=== PATIENT | female | born 1955 | race Caucasian/White ===

== ENCOUNTER 2017-07-18 21:19 | Inpatient (IN) | payer MEDICARE, MEDICAID ==
--- NOTE | 2017-07-18 21:40 | ED Physician Chart ---
ED Chief Complaint/HPI - Patient Information Date Seen:: 07/18/17 Time Seen:: 21:35 Chief Complaint:: fever, bloody urine History of Present Illness:: location: general quality: fever, bloody urine severity: moderate duration; one day context: pt with fever temp 102F today at [facility], RN also reports bloody urine. pt is ventilator dependent. RN who transported pt to ER reports no increase in respiratory secretions. no cough. no vomiting. no diarrhea. no rash reported. PCP contacted, suspects urinary source. advised send pt to ER. mod factors: none assoc s/s: none hx from [facility] RN and medic Allergies:: Allergies Allergy/AdvReac Type Severity Reaction Status Date / Time No Known Allergies Allergy Verified 07/18/17 21:33 Historian:: EMS, Other Review:: Nurse's Note Reviewed, EMS run form Reviewed ED Review of Systems - Review of Systems General/Constitutional: Fever, No edema Skin: No rash Neck: No stiffness Cardio Vascular: No edema Pulmonary: No cough, No wheezing GI: No vomiting, No diarrhea Belt Changer: No abnormal vaginal bleed Allergic/Immuno: No angioedema Neurological: No seizure ED Past Medical History - Past Medical History Past Medical History: HTN, DM, CAD, CHF, Other (chronic respiratory failure, anemia) Family History: None Social History: Non Smoker, No Alcohol, No Drug Use Surgical History: PEG/GTube, other (tracheostomy) Psychiatricy History: None Medication: Reviewed Family Medical History - Family Member Mother History Unknown: Yes ED Physical Exam - Physical Examination General/Constitutional: Awake, Well-developed, well-nourished, No distress (pt is with spontaneous eye opening, no verbal communication is observed (this is baseline as reported by facility RN who accompanies pt to ER)) Head: Atraumatic Eyes: Lids, conjuctiva normal, PERRL, EOMI Skin: Nl inspection, No skin lesions, Well hydrated ENMT: External ears, nose nl, Nasal exam nl, Lips, teeth, gums nl Neck: Nontender, Full ROM w/o pain, No nuchal rigidity Respiratory: Nl effort/Exclusion, Clear to Auscultation (bilateral crackles, no wheezes), No Wheeze/Rhonchi/Rales Cardio Vascular: RRR, No murmur, gallop, rubs, NL S1 S2 GI: No tenderness/rebounding/guarding, Normal BS's, No mass/bruits, No McBurney tenderness : No CVA tenderness Extremities: No tenderness or effusion, Normal digits & nails Misc: Normal back, No paraspinal tenderness ED Labs/Radiology/EKG Results - Lab Results Results: Laboratory Tests 07/18/17 07/18/17 07/18/17 21:30 22:15 22:15 WBC 40.8 H* RBC 3.58 L Hgb 9.9 L Hct 30.0 L MCV 83.9 MCH 27.8 MCHC Differential 33.1 RDW 13.9 Plt Count 282 MPV 12.2 Sodium 129 L Potassium 6.2 H* Chloride 95 L Carbon Dioxide 22.4 Anion Gap 17.8 H BUN 135 H* Creatinine 2.6 H Est GFR ( Amer) 24.0 Est GFR (Non-Af Amer) 19.8 BUN/Creatinine Ratio 51.9 Glucose 289 H Whole Bld Lactic Acid Calcium 10.6 H Total Bilirubin 0.5 AST 14 ALT 22 Alkaline Phosphatase 115 H Creatine Kinase Troponin I B-Natriuretic Peptide Total Protein 7.4 Albumin 3.2 L Globulin 4.2 Albumin/Globulin Ratio 0.8 L Urine Color RED Urine Clarity CLOUDY H Urine pH 7.5 Ur Specific [place] 1.025 Urine Protein >=300 Urine Glucose (UA) NEGATIVE Urine Ketones NEGATIVE Urine Blood LARGE H Urine Nitrate NEGATIVE Urine Bilirubin NEGATIVE Urine Urobilinogen 0.2 Ur Leukocyte Esterase SMALL H 07/18/17 07/18/17 07/18/17 22:15 22:15 22:15 WBC RBC Hgb Hct MCV MCH MCHC Differential RDW Plt Count MPV Sodium Potassium Chloride Carbon Dioxide Anion Gap BUN Creatinine Est GFR ( Amer) Est GFR (Non-Af Amer) BUN/Creatinine Ratio Glucose Whole Bld Lactic Acid Calcium Total Bilirubin AST ALT Alkaline Phosphatase Creatine Kinase 26 L Troponin I 0.27 H* B-Natriuretic Peptide 1420.0 H Total Protein Albumin Globulin Albumin/Globulin Ratio Urine Color Urine Clarity Urine pH Ur Specific [place] Urine Protein Urine Glucose (UA) Urine Ketones Urine Blood Urine Nitrate Urine Bilirubin Urine Urobilinogen Ur Leukocyte Esterase 07/18/17 22:30 WBC RBC Hgb Hct MCV MCH MCHC Differential RDW Plt Count MPV Sodium Potassium Chloride Carbon Dioxide Anion Gap BUN Creatinine Est GFR ( Amer) Est GFR (Non-Af Amer) BUN/Creatinine Ratio Glucose Whole Bld Lactic Acid 3.28 H* Calcium Total Bilirubin AST ALT Alkaline Phosphatase Creatine Kinase Troponin I B-Natriuretic Peptide Total Protein Albumin Globulin Albumin/Globulin Ratio Urine Color Urine Clarity Urine pH Ur Specific [place] Urine Protein Urine Glucose (UA) Urine Ketones Urine Blood Urine Nitrate Urine Bilirubin Urine Urobilinogen Ur Leukocyte Esterase - Radiology Results Results: CXR no acute pneumothorax no acute rib fracture borderline cardiomegaly no acute infiltrate, no patchiness tracheostomy tube in place no acute findings ER READ - EKG Interpretations Comments:: EKG NSR 96 repolarization abnormality suggests ischemia, diffuse leads minimal ST elevation, inferior leads pt appears comfortable, in no distress will obtain screening cardiac labs as pt is non-verbal abnormal EKG ED Assessment - Assessment General Assessment: pt with fever on arrival to ER axillary 100.5F pt with stable vital signs HR 99 RR 21 BP 112/52 100% sat vent settings AC 12 TV 500 Fio2 35% Peep 5 ED Septic Shock - . 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 advise ICU admission and further management. Reassessment Condition:: Improved - Diagnosis Diagnosis:: Acute Urinary infection near sepsis Severely elevated WBC - suspect lymphocytic process (no differential available) - Patient Disposition Discharge/Transfer:: Acute Care w/in this hosp Admitted to:: ICU Admitting Medical Physician:: Jero Dunbar Time:: 23:15 Condition at Disposition:: Stable, Improved
[2017-07-18] MEDS ORDERED: Albuterol/Ipratropium Neb 3 ML AERS HHN ONE ×2 (22:01→22:09)
[2017-07-18 22:35] LABS: URINE MICROSCOPIC INDICATED? YES; URINE SOURCE FOLEY PORT
[2017-07-18 22:42] LABS: HEMOGLOBIN 9.9 gm/dL (12-16); MANUAL DIFF REQUIRED? YES; MEAN CELL VOLUME 83.9 fl (81-100); MEAN CORPUSCULAR HEMOGLOBIN 27.8 pg (27.0-31.0); MEAN CORPUSCULAR HGB CONC 33.1 pg (28.0-36.0); MEAN PLATELET VOLUME 12.2 fl; PLATELET COUNT 282 Th/cmm (150-400); RED BLOOD COUNT 3.58 Mil/cmm (3.80-5.10); RED CELL DISTRIBUTION WIDTH 13.9 % (11.5-20.0)
[2017-07-18 22:45] LABS: ALB/GLOB RATIO 0.8 (1.0-1.8); ALBUMIN 3.2 gm/dL (3.7-5.3); ANION GAP 17.8 (7.0-16.0); BILIRUBIN,TOTAL 0.5 mg/dL (0.3-1.0); CALCIUM SERUM 10.6 mg/dL (8.6-10.3); CARBON DIOXIDE 22.4 mEq/L (21.0-31.0); CREATININE - SERUM 2.6 mg/dL (0.6-1.2); GFR NON AFRICAN-AMERICAN 19.8 ml/min; TOTAL PROTEIN,SERUM 7.4 gm/dL (6.0-8.3)
[2017-07-18 22:52] LABS: WHITE BLOOD COUNT 40.8 Th/cmm (4.8-10.8)
[2017-07-18 22:54] LABS: POTASSIUM SERUM 6.2 mEq/L (3.5-5.1)
[2017-07-18] MEDS ORDERED: Sodium Chloride 0.9% 1,000 ML IV ONE ×2 (22:57→22:58)
[2017-07-18] MEDS ORDERED: Sodium Chloride 0.9% 500 ML IV ONE (22:58)
[2017-07-18 23:06] LABS: URINE BILIRUBIN NEGATIVE (NEGATIVE); URINE BLOOD LARGE (NEGATIVE); URINE GLUCOSE (UA) NEGATIVE (NEGATIVE); URINE KETONE NEGATIVE (NEGATIVE); URINE LEUKOCYTE ESTERASE SMALL (NEGATIVE); URINE NITRATE NEGATIVE (NEGATIVE); URINE PH 7.5 (4.6 - 8.0); URINE PROTEIN >=300 mg/dL (NEGATIVE); URINE UROBILINOGEN 0.2 E.U./dL (0.2 - 1.0)
[2017-07-18 23:07] LABS: URINE CLARITY CLOUDY (CLEAR); URINE COLOR RED
[2017-07-18 23:16] LABS: URINE BACTERIA MANY /hpf (NONE SEEN); URINE EPITHELIAL CELLS FEW /lpf (FEW); URINE RBC 50-100 /hpf (0-5)
[2017-07-18 23:24] LABS: BAND NEUTROPHILE 12 % (0-10); HYPOCHROMIA 1+; LYMPHOCYTE 11 % (20-50); MONOCYTE 1 % (2-10); NEUTROPHILS 76 % (40-80); PLATELET ESTIMATE ADEQUATE (NORMAL); POLYCHROMASIA 1+; TOTAL CELLS COUNTED 100
[2017-07-18] MEDS ORDERED: Sodium Chloride 0.9% 1,000 ML IV SCH (23:45)
[2017-07-18] MEDS ORDERED: Albuterol/Ipratropium Neb 3 ML AERS HHN PRN (23:48)
[2017-07-18] MEDS ORDERED: Fleet Enema 135 mL RC PRN (23:48)
[2017-07-18] MEDS ORDERED: Magnesium Hydroxide (MOM) 30 mL UDC GT PRN (23:48)
[2017-07-18] MEDS ORDERED: Docusate Sodium 100 mg/10 mL UD GT PRN (23:48)
[2017-07-18] MEDS ORDERED: Levofloxacin 500mg/100mL 500 MG/100 ML BAG IV ONE ×2 (23:50)
[2017-07-18] MEDS ORDERED: INSULIN ASPART, RECOMBINANT 100 UNITS/ML SUBQ ONE (23:52)
[2017-07-18] MEDS ORDERED: Dextrose 50% 50 mL Abboject IVP STA (23:53)
[2017-07-18] MEDS ORDERED: guaiFENesin 200 MG/10 ML UDC PO PRN (23:55)
[2017-07-19 04:49] LABS: MANUAL DIFF REQUIRED? YES; MEAN CELL VOLUME 84.3 fl (81-100); MEAN PLATELET VOLUME 12.4 fl
[2017-07-19 05:01] LABS: MEAN CORPUSCULAR HEMOGLOBIN 29.6 pg (27.0-31.0); MEAN CORPUSCULAR HGB CONC 35.1 pg (28.0-36.0); PLATELET COUNT 259 Th/cmm (150-400); RED BLOOD COUNT 3.04 Mil/cmm (3.80-5.10)
[2017-07-19 05:03] LABS: WHITE BLOOD COUNT 40.1 Th/cmm (4.8-10.8)
[2017-07-19 05:21] LABS: ANION GAP 18.9 (7.0-16.0); CALCIUM SERUM 10.1 mg/dL (8.6-10.3); CARBON DIOXIDE 21.4 mEq/L (21.0-31.0); CREATININE - SERUM 2.7 mg/dL (0.6-1.2); POTASSIUM SERUM 5.3 mEq/L (3.5-5.1)
[2017-07-19 05:38] LABS: BAND NEUTROPHILE 16 % (0-10); HEMATOCRIT 25.7 % (41.0-60); LYMPHOCYTE 6 % (20-50); MONOCYTE 3 % (2-10); NEUTROPHILS 75 % (40-80); TOTAL CELLS COUNTED 100
[2017-07-19] MEDS: INSULIN ASPART, RECOMBINANT 100 UNITS/ML SUBQ SCH ×4 (06:38→20:22)
[2017-07-19] MEDS ORDERED: Ipratropium Neb 0.5 mg/2.5 mL UD HHN SCH (07:00)
[2017-07-19] MEDS ORDERED: Albuterol Nebulizer 2.5mg/3mL HHN SCH (07:00)
[2017-07-19] MEDS: Chlorhexidine Gluconate 0.12% 15mL Mouthwash MM SCH ×2 (08:00→20:14)
--- NOTE | 2017-07-19 08:08 | Diagnostic Imaging Report ---
CHEST X-RAY: AP view INDICATION: Tracheostomy tube placement COMPARISON: None FINDINGS: Tracheostomy tube is seen slightly asymmetric to the right and may be accentuated by location. Left basal atelectatic changes are seen with no focal consolidation or pleural effusions. Heart size is normal. Atherosclerosis is noted. Degenerative changes of the spine and shoulders are noted. IMPRESSION: Tracheostomy tube, slightly to the right of midline. Please correlate with clinical findings. Left basal atelectatic changes. No focal consolidation identified. Atherosclerotic vascular disease.
[2017-07-19] MEDS: Multivitamin w/ Minerals Tab GT SCH (09:08)
[2017-07-19] MEDS: Piperacillin Sodium/Tazobact 2.25 GM in Sodium Chloride 0.9% 100 ML IV SCH ×2 (09:08→17:03)
[2017-07-19] MEDS ORDERED: Probiotic Screen MC PRN (10:15)
[2017-07-19 11:34] LABS: A1C % 6.2 % (4.0-6.0)
--- NOTE | 2017-07-19 12:50 | Internal Medicine Prog Note ---
Internal Medicine Subjective - Subjective Service Date: 07/19/17 ([facility] dictated [id number]) Internal Medicine Objective - Results Result Diagrams: 07/19/17 04:15 07/19/17 04:15 Recent Labs: Laboratory Last Values WBC 40.1 Th/cmm (4.8-10.8) H* 07/19/17 04:15 RBC 3.04 Mil/cmm (3.80-5.10) L 07/19/17 04:15 Hgb 9.0 gm/dL (12-16) L 07/19/17 04:15 Hct 25.7 % (41.0-60) L D 07/19/17 04:15 MCV 84.3 fl (81-100) 07/19/17 04:15 MCH 29.6 pg (27.0-31.0) 07/19/17 04:15 MCHC Differential 35.1 pg (28.0-36.0) 07/19/17 04:15 RDW 14.0 % (11.5-20.0) 07/19/17 04:15 Plt Count 259 Th/cmm (150-400) 07/19/17 04:15 MPV 12.4 fl 07/19/17 04:15 Band Neutrophils % 16 % (0-10) H 07/19/17 04:15 Neutrophils (Manual) 75 % (40-80) 07/19/17 04:15 Lymphocytes 6 % (20-50) L 07/19/17 04:15 Monocytes 3 % (2-10) 07/19/17 04:15 Hypochromia 1+ 07/18/17 22:15 Platelet Estimate ADEQUATE (NORMAL) 07/18/17 22:15 Polychromasia 1+ 07/18/17 22:15 Smear Path Review YES 07/18/17 22:15 Sodium 132 mEq/L (136-145) L 07/19/17 04:15 Potassium 5.3 mEq/L (3.5-5.1) H 07/19/17 04:15 Chloride 97 mEq/L (98-107) L 07/19/17 04:15 Carbon Dioxide 21.4 mEq/L (21.0-31.0) 07/19/17 04:15 Anion Gap 18.9 (7.0-16.0) H 07/19/17 04:15 BUN 137 mg/dL (7-25) H* 07/19/17 04:15 Creatinine 2.7 mg/dL (0.6-1.2) H 07/19/17 04:15 Est GFR ( Amer) 23.0 ml/min (>90) 07/19/17 04:15 Est GFR (Non-Af Amer) 19.0 ml/min 07/19/17 04:15 BUN/Creatinine Ratio 50.7 07/19/17 04:15 Glucose 353 mg/dL (70-105) H 07/19/17 04:15 POC Glucose 324 MG/DL (70 - 105) H 07/19/17 06:35 Hemoglobin A1c % 6.2 % (4.0-6.0) H 07/18/17 23:30 Whole Bld Lactic Acid 3.01 mmol/L (0.60-1.99) H* 07/18/17 23:30 Calcium 10.1 mg/dL (8.6-10.3) 07/19/17 04:15 Total Bilirubin 0.5 mg/dL (0.3-1.0) 07/18/17 22:15 AST 14 U/L (13-39) 07/18/17 22:15 ALT 22 U/L (7-52) 07/18/17 22:15 Alkaline Phosphatase 115 U/L (34-104) H 07/18/17 22:15 Ammonia 33 umol/L (16-53) 07/19/17 04:15 Creatine Kinase 26 U/L (30-223) L 07/18/17 22:15 Troponin I 0.27 ng/mL (0.01-0.05) H* 07/18/17 22:15 B-Natriuretic Peptide 1420.0 pg/mL (5.0-100.0) H 07/18/17 22:15 Total Protein 7.4 gm/dL (6.0-8.3) 07/18/17 22:15 Albumin 3.2 gm/dL (3.7-5.3) L 07/18/17 22:15 Globulin 4.2 gm/dL 07/18/17 22:15 Albumin/Globulin Ratio 0.8 (1.0-1.8) L 07/18/17 22:15 TSH 2.30 uIU/ml (0.34-5.60) 07/19/17 04:15 Urine Source [place] 07/18/17 21:30 Urine Color RED 07/18/17 21:30 Urine Clarity CLOUDY (CLEAR) H 07/18/17 21:30 Urine pH 7.5 (4.6 - 8.0) 07/18/17 21:30 Ur Specific [place] 1.025 (1.005-1.030) 07/18/17 21:30 Urine Protein >=300 mg/dL (NEGATIVE) 07/18/17 21:30 Urine Glucose (UA) NEGATIVE mg/dL (NEGATIVE) 07/18/17 21:30 Urine Ketones NEGATIVE mg/dL (NEGATIVE) 07/18/17 21:30 Urine Blood LARGE (NEGATIVE) H 07/18/17 21:30 Urine Nitrate NEGATIVE (NEGATIVE) 07/18/17 21:30 Urine Bilirubin NEGATIVE (NEGATIVE) 07/18/17 21:30 Urine Urobilinogen 0.2 E.U./dL (0.2 - 1.0) 07/18/17 21:30 Ur Leukocyte Esterase SMALL (NEGATIVE) H 07/18/17 21:30 Urine RBC 50-100 /hpf (0-5) H 07/18/17 21:30 Urine WBC 6-10 /hpf (0-5) H 07/18/17 21:30 Ur Epithelial Cells FEW /lpf (FEW) 07/18/17 21:30 Urine Bacteria MANY /hpf (NONE SEEN) 07/18/17 21:30 - Physical Exam Vitals and I&O: Vital Signs Temp 98.4 F 07/19/17 08:00 Pulse 97 07/19/17 11:34 Resp 18 07/19/17 10:00 BP 108/47 07/19/17 10:00 Pulse Ox 100 07/19/17 11:34 Intake & Output 07/18/17 07/19/17 07/19/17 18:59 06:59 18:59 Intake Total 596.667 100 Output Total 250 0 Balance 346.667 100 Weight (lbs) 178 lb 3.2 oz 178 lb 3.2 oz Intake: Intake, IV Amount 596.667 100 Piperacillin Sodium/ 100 Tazobact 2.25 gm In Sodium Chloride 0.9% 100 ml @ 100 mls/hr IV Q8H [facility] Rx#:[id number] Sodium Chloride 0.9% 1, 346.667 000 ml @ 80 mls/hr IV . [id number] [facility] Rx#:[id number] Output: Urine 250 Stool 0 Other: # Bowel Movements 0 Stool Characteristics Liquid Liquid Brown Active Medications: Current Medications Acetaminophen (Tylenol 650mg/20.3ml Suspension) 650 mg GT Q4H PRN PRN Reason: Pain or Fever >101 Stop: 09/16/17 23:47 Albuterol/Ipratropium (Duoneb Neb) 3 ml HHN Q6HRT [facility] Stop: 09/17/17 12:59 Albuterol/Ipratropium (Duoneb Neb) 3 ml HHN Q2HR PRN PRN Reason: Shortness of Breath Stop: 09/16/17 23:47 Ascorbic Acid (Vitamin C) 500 mg GT DAILY [facility] Stop: 09/17/17 08:59 Last Admin: 07/19/17 09:08 Dose: 500 mg Bisacodyl (Dulcolax 10 Mg Supp) 10 mg RC DAILY PRN PRN Reason: constip Stop: 09/16/17 23:47 Carvedilol (Coreg) 3.125 mg GT BID [facility] Stop: 09/17/17 08:59 Last Admin: 07/19/17 09:08 Dose: Not Given Chlorhexidine Gluconate (Peridex) 15 ml MM 0800,1999 [facility] Stop: 09/17/17 07:59 Last Admin: 07/19/17 08:00 Dose: 15 ml Docusate Sodium (Colace) 100 mg GT BID PRN PRN Reason: Constipation Famotidine (Pepcid) 20 mg GT Q12H [facility] Stop: 09/16/17 23:44 Last Admin: 07/19/17 11:49 Dose: 20 mg Guaifenesin (Robitussin) 200 mg PO Q4HR PRN PRN Reason: Cough or Congestion Stop: 09/16/17 23:54 Heparin Sodium (Porcine) (Heparin) 5,000 units SUBQ Q12HR [facility] Stop: 09/17/17 08:59 Last Admin: 07/19/17 09:09 Dose: 5,000 units Sodium Chloride (Nacl 0.9%) 1,000 mls @ 80 mls/hr IV .[id number] [facility] Stop: 09/16/17 23:44 Last Infusion: 07/19/17 06:00 Dose: 80 mls/hr Piperacillin Sod/Tazobactam (Sod 2.25 gm/ Sodium Chloride) 100 mls @ 100 mls/ hr IV Q8H [facility] Stop: 09/17/17 08:59 Last Infusion: 07/19/17 10:08 Dose: Infused Vancomycin HCl 1 gm/ Dextrose 250 mls @ 165 mls/hr IV Q36H [facility] Stop: 09/18/17 01:59 Insulin Aspart (Novolog) 0 units SUBQ ACHS [place] PRN Reason: Protocol Stop: 09/17/17 07:29 Last Admin: 07/19/17 11:44 Dose: 6 units Lactobacillus Rhamnosus (Culturelle) 1 each PO DAILY [facility] Stop: 09/18/17 08:59 Magnesium Hydroxide (Milk Of Magnesia) 30 ml GT HS PRN PRN Reason: Constipation Stop: 09/16/17 23:47 Metoclopramide HCl (Reglan) 5 mg GT Q8H [facility] Stop: 09/16/17 23:44 Last Admin: 07/19/17 07:45 Dose: Not Given Miscellaneous (Vancomycin Iv Per Pharmacy) 1 ea MC PRN [facility] Stop: 09/16/17 23:44 Miscellaneous (Clinical Monitoring) 1 ea MC PRN PRN PRN Reason: RENAL DOSE ZOSYN Stop: 09/17/17 08:23 Miscellaneous (Probiotic Screen) 1 ea MC PRN PRN PRN Reason: PROTOCOL Stop: 09/17/17 10:14 Morphine Sulfate (Morphine) 2 mg IVP Q4H PRN PRN Reason: Pain (Severe) Stop: 09/16/17 23:53 Ondansetron HCl (Zofran) 4 mg IV Q8H PRN PRN Reason: Nausea / Vomiting Stop: 09/16/17 23:54 Sodium Phosphate (Fleet Enema) 135 ml RC Q48H PRN PRN Reason: Constipation Stop: 09/16/17 23:47 Zinc Sulfate (Zinc Sulfate) 220 mg GT DAILY [facility] Stop: 09/17/17 08:59 Last Admin: 07/19/17 09:08 Dose: 220 mg
[2017-07-19] MEDS: Albuterol/Ipratropium Neb 3 ML AERS HHN SCH ×2 (13:07→18:59)
[2017-07-19] MEDS ORDERED: VTE Chemical Prophylaxis Screen/Admission MC PRN (13:48)
--- NOTE | 2017-07-19 14:04 | History & Physical ---
ADMIT DATE: 07/19/2017 CHIEF COMPLAINT: Hematuria. HISTORY OF PRESENT ILLNESS: This is a 62-year-old female who is a resident of [facility] subacute who is brought here to [facility] due to hematuria. According to nursing staff, the patient had a fever of 102. Also, the patient was noted with hematuria as well. For this reason, the patient is now admitted to the ICU unit. PAST MEDICAL HISTORY: VDRF, hypertension, chronic respiratory failure, type 2 diabetes, CAD, CHF. PAST SURGICAL HISTORY: PEG and tracheostomy. MEDICATIONS: Please see medication reconciliation. FAMILY HISTORY: Noncontributory. SOCIAL HISTORY: The patient is a [facility] resident, requiring 24-hour nursing and RT care. REVIEW OF SYSTEMS: Unable to obtain due to patient's mental status. The patient is nonverbal. PHYSICAL EXAMINATION: GENERAL: This is an elderly female, awake, nonverbal, not interactive, appears chronically ill. VITAL SIGNS: Temperature 98.4, heart rate 95, blood pressure 105/43, respirations 12, O2 100%. HEENT: Head; normocephalic, atraumatic. NECK: Supple. No mass. LUNGS: Rhonchi bilaterally. HEART: ___. ABDOMEN: Soft, nontender. LABORATORY DATA: WBC 40.1, H and H 9.0 and 25.7, platelet of 259. Sodium 132, potassium 5.3, chloride 97, BUN 137, creatinine 2.7, whole lactic acid at 3.01, troponin of 0.27. The patient had a urinalysis done, positive for UTI. The patient had a chest x-ray done and the impression is tracheostomy tube slightly to the right of midline. Please correlate with clinical findings. Left basal atelectatic changes, no focal consolidation identified. ASSESSMENT: Septic, chronic respiratory failure, VDRF, leukocytosis, hematuria, hypertension, diabetes, CAD, CHF, anemia, take a tracheostomy status, hyperkalemia, acute renal insufficiency, elevated troponin, mild protein calorie malnutrition, acute UTI. PLAN: The patient to be admitted to the ICU unit. We will get a repeat of whole lactic acid. We will also keep the patient on aggressive IV fluids for hydration. We will get Nephrology and Pulmonary on the case. We will keep the patient on empiric IV antibiotics of vancomycin and Zosyn. We will monitor patient's BUN and creatinine. We will continue to follow this patient. JOB# [id number]
[2017-07-19] MEDS: Sodium Chloride 0.9% 1,000 ML IV SCH (15:55)
--- NOTE | 2017-07-19 17:39 | Consultation ---
DATE OF CONSULTATION: 07/19/2017 REFERRING PHYSICIAN: Dr. uDnbar. Thank you very much Dr. Dunbar, for this consultation. HISTORY OF PRESENT ILLNESS: This is a 62-year-old female well known to me with history of encephalopathy, respiratory failure, chronic ventilator dependent, presented from detention for fever and was admitted for further treatment and management. The patient appears to be comfortable, no distress, unable to give any further history, unable to give any review of system. PHYSICAL EXAMINATION: VITAL SIGNS: Temperature 98.5, T max is 100.5, pulse is 86, respiration is 19, blood pressure 121/50, saturation 100%. HEENT: Atraumatic and normocephalic. Pupils equal and reactive to light and accommodation. Ears, nose and throat are normal. NECK: Supple. No JVD. CHEST: There are good breath sounds, few rhonchi. HEART: Regular rhythm. ABDOMEN: Soft. EXTREMITIES: No edema. LABORATORY DATA: WBC is 14.1, hemoglobin is 9.0, hematocrit 25.7, platelets 259. Sodium is 132, potassium 5.3, BUN is 137, creatinine is 2.7. BNP is 1420. The chest x-ray showed no acute infiltrate. UA is cloudy with large blood, leukocyte esterase, wbc's. IMPRESSION: This is a 62-year-old female with, 1. Respiratory failure. 2. Urinary tract infection. 3. Sepsis. 4. Weakness. PLAN: 1. Continue IV antibiotics. 2. Cultures. 3. Ventilator support. 4. Supportive care. Follow up labs and WBC. Thank you very much for this consultation. Case discussed with the patient's daughter at bedside. JOB# [id number] LIAM
--- NOTE | 2017-07-19 20:47 | Consultation ---
DATE OF CONSULTATION: 07/19/2017 ATTENDING: Jero Dunbar D.O. SHEET METAL SUPERINTENDENT: Neftali Lee M.D. REASON FOR CONSULTATION: Worsening kidney function, electrolyte imbalance and fluid management. HISTORY OF PRESENT ILLNESS: This is a 62-year-old female with past medical history of respiratory failure, ventilator dependent, who came in because of fever. A few hours prior to admission, the patient had temperature of 102 and pulse of 122. She was then brought to the Emergency Room. ER staff noted gross hematuria, but was never mentioned in the notes from [facility]. White count was 14.8. Chest x-ray revealed left atelectasis, but no changes. Her UA was suggestive of urinary tract infection. Lactic acid was 3.01. Three weeks prior to admission, her BUN/creatinine were 23/0.4. However, her sodium now is 132 with potassium of 5.3. Her BUN/creatinine were 137/2.7. There was no mention of any nausea and vomiting as well as diarrhea. PAST MEDICAL HISTORY: 1. Respiratory failure, vent dependent. 2. Anemia of chronic disease. 3. Alzheimer dementia. 4. History of congestive heart failure. 5. Essential hypertension. 6. Type 2 diabetes mellitus. 7. COPD. 8. Metabolic encephalopathy. PAST SURGICAL HISTORY: 1. Status post tracheostomy. 2. Status post G-tube placement. CURRENT MEDICATIONS: She is currently on acetaminophen, albuterol with ipratropium, ascorbic acid, bisacodyl, Coreg, chlorhexidine, clonidine, docusate sodium, famotidine, , Lactobacillus, levofloxacin, magnesium hydroxide, metoclopramide, ondansetron, probiotic, vancomycin, zinc sulfate, Zosyn. ALLERGIES: No known drug allergies. SOCIAL AND FAMILY HISTORY: I was unable to obtain from the patient because she is on a ventilator. REVIEW OF SYSTEMS: Again, I was unable to decipher directly from the patient because of her being on a ventilator. PHYSICAL EXAMINATION: GENERAL: The patient is awake, on a ventilator, comfortable. VITAL SIGNS: Blood pressure is 125/59, pulse is 96, temperature 98.2 degrees. SKIN: Poor turgor, warm. No rash, no jaundice appreciated. HEENT: Head: Normocephalic, atraumatic. Eyes: Extraocular muscles intact. Pupils equal, round, reactive to light and accommodates. Anicteric sclerae, pale conjunctivae. Nose: Midline nasal septum. Mouth: Dry mucosa, poor dentition. NECK: Supple, no adenopathy, no thyromegaly, no bruits. Trachea palpated in the midline with presence of a midline tracheostomy tube. CHEST AND CVS: S1, S2. No rub, murmur nor gallop appreciated. Point of maximal impulse fifth intercostal space, left midclavicular line. No abdominal or femoral bruits appreciated. LUNGS: Equal expansion. No use of accessory muscles. No supraclavicular retractions. Scattered coarse rhonchi, but no rales nor wheezes appreciated. BREASTS: Symmetrical, without any discharge. ABDOMEN: Globular, soft, positive for bowel sounds. No bruits either diastolic or systolic. RECTAL: Lax sphincter tone. GENITOURINARY: Normal appearing female genitalia. BACK: Presence of a 3 x 4 stage 2 sacral decubitus ulcer. GENITOURINARY: Normal appearing female genitalia with Ocampo catheter and gross hematuria. MUSCULOSKELETAL: No effusions present in her joints, but unable to assess her range of motion. EXTREMITIES: No evidence of edema, cyanosis nor clubbing with palpable femoral, but unable to fully appreciate popliteal and dorsalis pedis pulses. NEUROLOGIC: The patient is awake; however, unable to follow my neuro commands, so I was unable to pursue further my neuro exam. LABORATORY DATA: Labs did reveal a white count 14.1, hemoglobin 9, hematocrit 25.7, platelets 259, polys 75%. Sodium 132, potassium is 5.3, BUN is 137, creatinine 2.7, glucose 353. Lactic acid 3.01. Calcium 10.1. BNP is 1420. TSH 2.3. IMPRESSION: 1. Acute kidney injury. The patient's initial kidney problem was prerenal in nature. However, even though she was on tube feeding, this was not enough to replenish sensible and insensible fluid losses ( ). Her prerenal azotemia eventually progressed to acute tubular injury. The patient also has overwhelming sepsis due to complicated urinary tract infection. This can cause development of acute interstitial nephritis. 2. Gross hematuria likely secondary to trauma. 3. Shock is due to sepsis. 4. Sepsis secondary to complicated urinary tract infection and possible infected decubitus ulcer. 5. Stage 2 sacral decubitus ulcer. 6. Hyperkalemia secondary to acute kidney injury and diabetes. 7. Respiratory failure, vent dependent. 8. Anemia of chronic disease. 9. Alzheimer dementia. 10. History of congestive heart failure. 11. Essential hypertension with chronic kidney disease. 12. Type 2 diabetes mellitus with chronic kidney disease. 13. Chronic obstructive pulmonary disease. 14. Metabolic encephalopathy. PLAN: 1. Renal ultrasound. 2. Urine sodium, eosinophils and creatinine. 3. Urine microalbumin to creatinine ratio. 4. Request for serum osmolality and uric acid. 5. Agree with IV fluids. Thank you, Dr. Dunbar, for this consult. I will follow the patient closely with you. JOB# [id number]
[2017-07-20] LABS: EOSINOPHIL SMEAR SOURCE URINE; EOSINOPHILS SMEAR COUNT NONE SEEN (NONE SEEN)
[2017-07-20] MEDS: Piperacillin Sodium/Tazobact 2.25 GM in Sodium Chloride 0.9% 100 ML IV SCH ×3 (00:18→16:43)
[2017-07-20] MEDS: Sodium Chloride 0.9% 1,000 ML IV SCH ×2 (02:00→21:14)
[2017-07-20] MEDS: Albuterol/Ipratropium Neb 3 ML AERS HHN SCH ×4 (02:10→19:30)
[2017-07-20 05:10] LABS: MANUAL DIFF REQUIRED? YES; MEAN CELL VOLUME 85.1 fl (81-100); MEAN CORPUSCULAR HEMOGLOBIN 28.5 pg (27.0-31.0); MEAN CORPUSCULAR HGB CONC 33.5 pg (28.0-36.0); MEAN PLATELET VOLUME 11.7 fl; PLATELET COUNT 247 Th/cmm (150-400); RED BLOOD COUNT 2.66 Mil/cmm (3.80-5.10); RED CELL DISTRIBUTION WIDTH 14.5 % (11.5-20.0)
[2017-07-20 05:15] LABS: WHITE BLOOD COUNT 27.9 Th/cmm (4.8-10.8)
[2017-07-20 05:16] LABS: HEMATOCRIT 22.6 % (41.0-60); HEMOGLOBIN 7.6 gm/dL (12-16)
[2017-07-20 05:21] LABS: ALB/GLOB RATIO 0.7 (1.0-1.8); ALBUMIN 2.7 gm/dL (3.7-5.3); BILIRUBIN,TOTAL 0.3 mg/dL (0.3-1.0); CALCIUM SERUM 9.4 mg/dL (8.6-10.3); CARBON DIOXIDE 16.9 mEq/L (21.0-31.0); CREATININE - SERUM 2.3 mg/dL (0.6-1.2); GFR AFRICAN-AMERICAN 27.6 ml/min (>90); GFR NON AFRICAN-AMERICAN 22.8 ml/min; MAGNESIUM 2.9 mg/dL (1.9-2.7); PHOSPHOROUS 4.5 mg/dL (2.5-5.0); TOTAL PROTEIN,SERUM 6.6 gm/dL (6.0-8.3); URIC ACID 9.5 mg/dL (2.3-6.6)
[2017-07-20 05:26] LABS: POTASSIUM SERUM 2.9 mEq/L (3.5-5.1)
[2017-07-20 06:29] LABS: TOTAL CELLS COUNTED 100
[2017-07-20 06:30] LABS: BAND NEUTROPHILE 12 % (0-10); LYMPHOCYTE 5 % (20-50); MONOCYTE 5 % (2-10); NEUTROPHILS 78 % (40-80)
[2017-07-20 06:31] LABS: PLATELET ESTIMATE ADEQUATE (NORMAL)
[2017-07-20] MEDS ORDERED: Potassium Chloride Elixir 20 mEq /15 mL UDC GT ONE (07:28)
[2017-07-20] MEDS: INSULIN ASPART, RECOMBINANT 100 UNITS/ML SUBQ SCH ×4 (07:52→18:00)
[2017-07-20] MEDS: Chlorhexidine Gluconate 0.12% 15mL Mouthwash MM SCH ×2 (07:56→21:17)
[2017-07-20] MEDS ORDERED: Insulin Detemir 100 units/mL 10mL Vial SUBQ SCH ×2 (09:00)
[2017-07-20] MEDS: Multivitamin w/ Minerals Tab GT SCH (09:07)
[2017-07-20] MEDS: Lactobacillus Rhamnosus 10 Billion CFU Capsule PO SCH (09:07)
--- NOTE | 2017-07-20 12:09 | Internal Medicine Prog Note ---
Internal Medicine Subjective - Subjective Service Date: 07/20/17 (currently being transfused with 2 units prbc) Patient seen and examined:: with staff Patient is:: awake, non-verbal Per staff patient has:: tolerating meds Internal Medicine Objective - Results Result Diagrams: 07/20/17 04:10 07/20/17 04:10 Recent Labs: Laboratory Last Values WBC 27.9 Th/cmm (4.8-10.8) H* 07/20/17 04:10 RBC 2.66 Mil/cmm (3.80-5.10) L 07/20/17 04:10 Hgb 7.6 gm/dL (12-16) L* 07/20/17 04:10 Hct 22.6 % (41.0-60) L D 07/20/17 04:10 MCV 85.1 fl (81-100) 07/20/17 04:10 MCH 28.5 pg (27.0-31.0) 07/20/17 04:10 MCHC Differential 33.5 pg (28.0-36.0) 07/20/17 04:10 RDW 14.5 % (11.5-20.0) 07/20/17 04:10 Plt Count 247 Th/cmm (150-400) 07/20/17 04:10 MPV 11.7 fl 07/20/17 04:10 Band Neutrophils % 12 % (0-10) H 07/20/17 04:10 Neutrophils (Manual) 78 % (40-80) 07/20/17 04:10 Lymphocytes 5 % (20-50) L 07/20/17 04:10 Monocytes 5 % (2-10) 07/20/17 04:10 Hypochromia 1+ 07/18/17 22:15 Platelet Estimate ADEQUATE (NORMAL) 07/20/17 04:10 Polychromasia 1+ 07/18/17 22:15 Smear Path Review YES 07/18/17 22:15 Eos Smear Source URINE 07/19/17 22:30 Eos Smear Total Cells NONE SEEN (NONE SEEN) 07/19/17 22:30 Sodium 139 mEq/L (136-145) 07/20/17 04:10 Potassium 2.9 mEq/L (3.5-5.1) L* D 07/20/17 04:10 Chloride 104 mEq/L (98-107) 07/20/17 04:10 Carbon Dioxide 16.9 mEq/L (21.0-31.0) L 07/20/17 04:10 Anion Gap 21.0 (7.0-16.0) H 07/20/17 04:10 BUN 116 mg/dL (7-25) H* 07/20/17 04:10 Creatinine 2.3 mg/dL (0.6-1.2) H 07/20/17 04:10 Est GFR ( Amer) 27.6 ml/min (>90) 07/20/17 04:10 Est GFR (Non-Af Amer) 22.8 ml/min 07/20/17 04:10 BUN/Creatinine Ratio 50.4 07/20/17 04:10 Glucose 436 mg/dL (70-105) H 07/20/17 04:10 POC Glucose 448 MG/DL (70 - 105) H 07/20/17 11:42 Hemoglobin A1c % 6.2 % (4.0-6.0) H 07/18/17 23:30 Whole Bld Lactic Acid 0.61 mmol/L (0.60-1.99) 07/20/17 04:10 Uric Acid 9.5 mg/dL (2.3-6.6) H 07/20/17 04:10 Calcium 9.4 mg/dL (8.6-10.3) 07/20/17 04:10 Phosphorus 4.5 mg/dL (2.5-5.0) 07/20/17 04:10 Magnesium 2.9 mg/dL (1.9-2.7) H 07/20/17 04:10 Total Bilirubin 0.3 mg/dL (0.3-1.0) 07/20/17 04:10 AST 8 U/L (13-39) L 07/20/17 04:10 ALT 14 U/L (7-52) 07/20/17 04:10 Alkaline Phosphatase 87 U/L (34-104) 07/20/17 04:10 Ammonia 33 umol/L (16-53) 07/19/17 04:15 Creatine Kinase 26 U/L (30-223) L 07/18/17 22:15 Troponin I 0.27 ng/mL (0.01-0.05) H* 07/18/17 22:15 B-Natriuretic Peptide 1420.0 pg/mL (5.0-100.0) H 07/18/17 22:15 Total Protein 6.6 gm/dL (6.0-8.3) 07/20/17 04:10 Albumin 2.7 gm/dL (3.7-5.3) L 07/20/17 04:10 Globulin 3.9 gm/dL 07/20/17 04:10 Albumin/Globulin Ratio 0.7 (1.0-1.8) L 07/20/17 04:10 TSH 2.30 uIU/ml (0.34-5.60) 07/19/17 04:15 Urine Source [place] 07/18/17 21:30 Urine Color RED 07/18/17 21:30 Urine Clarity CLOUDY (CLEAR) H 07/18/17 21:30 Urine pH 7.5 (4.6 - 8.0) 07/18/17 21:30 Ur Specific [place] 1.025 (1.005-1.030) 07/18/17 21:30 Urine Protein >=300 mg/dL (NEGATIVE) 07/18/17 21:30 Urine Glucose (UA) NEGATIVE mg/dL (NEGATIVE) 07/18/17 21:30 Urine Ketones NEGATIVE mg/dL (NEGATIVE) 07/18/17 21:30 Urine Blood LARGE (NEGATIVE) H 07/18/17 21:30 Urine Nitrate NEGATIVE (NEGATIVE) 07/18/17 21:30 Urine Bilirubin NEGATIVE (NEGATIVE) 07/18/17 21:30 Urine Urobilinogen 0.2 E.U./dL (0.2 - 1.0) 07/18/17 21:30 Ur Leukocyte Esterase SMALL (NEGATIVE) H 07/18/17 21:30 Urine RBC 50-100 /hpf (0-5) H 07/18/17 21:30 Urine WBC 6-10 /hpf (0-5) H 07/18/17 21:30 Ur Epithelial Cells FEW /lpf (FEW) 07/18/17 21:30 Urine Bacteria MANY /hpf (NONE SEEN) 07/18/17 21:30 Ur Random Sodium 28 mmol/L 07/19/17 22:30 Urine Creatinine 35.0 mg/dl (28.0-217.0) 12/19/17 22:30 Blood Type O NEGATIVE 07/20/17 08:15 Antibody Screen NEGATIVE 07/20/17 08:15 - Physical Exam Vitals and I&O: Vital Signs Temp 97.9 F 07/20/17 08:00 Pulse 93 07/20/17 09:31 Resp 20 07/20/17 09:00 BP 119/49 07/20/17 09:07 Pulse Ox 100 07/20/17 09:31 Intake & Output 07/19/17 07/20/17 07/20/17 18:59 06:59 18:59 Intake Total 0448.013 6976 200 Output Total 650 750 Balance 873.993 5836 -550 Weight (lbs) 178 lb 178 lb Intake: Intake, IV Amount 317.998 1768 100 Piperacillin Sodium/ 200 100 100 Tazobact 2.25 gm In Sodium Chloride 0.9% 100 ml @ 100 mls/hr IV Q8H [facility] Rx#:[id number] Sodium Chloride 0.9% 1, 1000 000 ml @ 100 mls/hr IV . Q10H [facility] Rx#:[id number] Sodium Chloride 0.9% 1, 653.333 000 ml @ 80 mls/hr IV . [id number] [facility] Rx#:[id number] Vancomycin HCl 1 gm In 250 Dextrose 5% 250 ml @ 165 mls/hr IV Q36H [facility] Rx#: [id number] Other 150 100 Output: Urine 650 750 Stool 0 0 Other: # Bowel Movements 4 0 Stool Characteristics Mucoid Mucoid Brown Active Medications: Current Medications Acetaminophen (Tylenol 650mg/20.3ml Suspension) 650 mg GT Q4H PRN PRN Reason: Pain or Fever >101 Stop: 09/16/17 23:47 Albuterol/Ipratropium (Duoneb Neb) 3 ml HHN Q6HRT [facility] Stop: 09/17/17 12:59 Last Admin: 07/20/17 07:56 Dose: 3 ml Albuterol/Ipratropium (Duoneb Neb) 3 ml HHN Q2HR PRN PRN Reason: Shortness of Breath Stop: 09/16/17 23:47 Ascorbic Acid (Vitamin C) 500 mg GT DAILY [facility] Stop: 09/17/17 08:59 Last Admin: 07/20/17 09:07 Dose: 500 mg Bisacodyl (Dulcolax 10 Mg Supp) 10 mg RC DAILY PRN PRN Reason: constip Stop: 09/16/17 23:47 Carvedilol (Coreg) 3.125 mg GT BID [facility] Stop: 09/17/17 08:59 Last Admin: 07/20/17 09:07 Dose: 3.125 mg Chlorhexidine Gluconate (Peridex) 15 ml MM 0800,2000 [facility] Stop: 09/17/17 07:59 Last Admin: 07/20/17 07:56 Dose: 15 ml Docusate Sodium (Colace) 100 mg GT BID PRN PRN Reason: Constipation Famotidine (Pepcid) 20 mg GT Q12H [facility] Stop: 09/16/17 23:44 Last Admin: 07/20/17 11:56 Dose: 20 mg Guaifenesin (Robitussin) 200 mg PO Q4HR PRN PRN Reason: Cough or Congestion Stop: 09/16/17 23:54 Heparin Sodium (Porcine) (Heparin) 5,000 units SUBQ Q12HR [facility] Stop: 09/17/17 08:59 Last Admin: 07/20/17 09:09 Dose: 5,000 units Piperacillin Sod/Tazobactam (Sod 2.25 gm/ Sodium Chloride) 100 mls @ 100 mls/ hr IV Q8H [facility] Stop: 09/17/17 08:59 Last Infusion: 07/20/17 10:08 Dose: Infused Vancomycin HCl 1 gm/ Dextrose 250 mls @ 165 mls/hr IV Q36H [facility] Stop: 09/18/17 01:59 Last Infusion: 07/20/17 04:00 Dose: Infused Sodium Chloride (Nacl 0.9%) 1,000 mls @ 100 mls/hr IV .Q10H [facility] Stop: 09/16/17 23:44 Last Admin: 07/20/17 02:00 Dose: 100 mls/hr Insulin Aspart (Novolog) 0 units SUBQ ACHS ISABELLE PRN Reason: Protocol Stop: 09/17/17 07:29 Last Admin: 07/20/17 11:56 Dose: 10 units Insulin Detemir (Levemir Insulin) 10 units SUBQ BID ISABELLE PRN Reason: Protocol Stop: 09/18/17 08:59 Last Admin: 07/20/17 09:08 Dose: 10 units Lactobacillus Rhamnosus (Culturelle) 1 each PO DAILY [facility] Stop: 09/18/17 08:59 Last Admin: 07/20/17 09:07 Dose: 1 each Magnesium Hydroxide (Milk Of Magnesia) 30 ml GT HS PRN PRN Reason: Constipation Stop: 09/16/17 23:47 Metoclopramide HCl (Reglan) 5 mg GT Q8H ISABELLE Stop: 09/16/17 23:44 Last Admin: 07/20/17 07:52 Dose: Not Given Miscellaneous (Vancomycin Iv Per Pharmacy) 1 ea MC PRN ISABELLE Stop: 09/16/17 23:44 Miscellaneous (Clinical Monitoring) 1 ea MC PRN PRN PRN Reason: RENAL DOSE ZOSYN Stop: 09/17/17 08:23 Miscellaneous (Probiotic Screen) 1 ea PRN PRN PRN Reason: PROTOCOL Stop: 09/17/17 10:14 Miscellaneous (Vte Chemical Prophylaxis Screen/ Admission) 1 ea PRN PRN PRN Reason: PROTOCOL Stop: 09/17/17 13:47 Morphine Sulfate (Morphine) 2 mg IVP Q4H PRN PRN Reason: Pain (Severe) Stop: 09/16/17 23:53 Ondansetron HCl (Zofran) 4 mg IV Q8H PRN PRN Reason: Nausea / Vomiting Stop: 09/16/17 23:54 Sodium Phosphate (Fleet Enema) 135 ml RC Q48H PRN PRN Reason: Constipation Stop: 09/16/17 23:47 Zinc Sulfate (Zinc Sulfate) 220 mg GT DAILY ISABELLE Stop: 09/17/17 08:59 Last Admin: 07/20/17 09:07 Dose: 220 mg General: weak, obtunded HEENT: NC/AT, PERRLA Neck: Supple Lungs: ronchi Cardiovascular: RRR, without murmur Abdomen: soft, non-tender, non-distended, +GT, positive bowel sound Extremities: excoriation Neurological: bedbound - Procedures Procedures: Procedures Procedure Code Date RESPIRATORY VENTILATION, 24-96 CONSECUTIVE HOURS [id number] 07/18/17 Internal Medicine Assmt/Plan - Assessment Assessment: sepsis chronic respiratory failure VDRF leukocytosis hematuria htn dm2 cad chf anemia tracheostomy status hypokalemia acute renal insufficiency elevated troponin mild protein calorie malnutrition acute uti - Plan Plan: continue with ivabx icu monitoring renal follow up monitor h/h follow up labs in am vent support continue current plan of care Nutritional Asmnt/Malnutr-PDOC - Dietary Evaluation Malnutrition Findings (Please click <Entered> for more info): Nutritional Asmnt/Malnutrition Start: 07/19/17 17: 24 Text: Status: Complete Freq: Document 07/19/17 17:25 LCHENG (Rec: 07/19/17 17:43 LCJOSE DE JESUSG [email or web address]) Nutritional Asmnt/Malnutrition Patient General Information Nutritional Screening High Risk Consult Diagnosis Sepsis, UTI Pertinent Medical Hx/Surgical Hx HTN, DM, CAD, CHF, chronic resperatory failure, anemia, PEG/Gtube, tracheostomy Subjective Information Consult received for elevated BG. Pt seen lying in bed, on vent, non verbal comminication noted. Not able to obtain nutrition hx. Spoke with RN, no nutrition plan at this time . Current Diet Order/ Nutrition Support NPO Pertinent Medications Vitamin C, novolog, cultrelle, reglan, vancomycin, , piperacillin, Nacl 0.9%, Zinc Pertinent Labs 07/19 Na 132, K 5.3, Cl 97L, BUN 137, Cr 2.7, Glu 353, POC 324-394, A1C 6.2 Nutritional Hx/Data Height 5 ft 2 in Height (Calculated Centimeters) 157.5 Current Weight (lbs) 178 lb 3.2 oz Weight (Calculated Kilograms) 80.8 Weight (Calculated Grams) 41745.2 [place] Body Weight 110 % [place] Body Weight 162 Body Mass Index (BMI) 32.5 Weight Status Obese GI Symptoms GI Symptoms None Last BM none Usual diet at home Glucerna 1.5 60ml/hr x 20hr daily at [facility] Skin Integrity/Comment: decubitus ulceration to sacrum Estimated Nutritional Goals BEE in Kcals: Adj wt of IBW Calories/Kcals/Kg 30-35 Kcals Calculated Protein: Adj wt of IBW Protein g/k.2-1.5 Protein Calculated 69-87 Fluid: ml [id number] Nutritional Problem 2. Problem Problem increased nutrition needs ( calorie and protein) Etiology increased metabolic demand for healing Signs/Symptoms: sepsis 1. Problem Problem altered nutrition related lab values Etiology hx of DM, acute renal insufficiency Signs/Symptoms: BUN 137, Cr 2.7, Glu 353, POC 324-394, A1C 6.2 Malnutrition Alert Protein-Calorie Malnutrition N/A Is there a minimum of two criteria No selected? Query Text:Check all the applicable criteria. A minimum of two criteria are recommended for diagnosis of either severe or non-severe malnutrition. Intervention/Recommendation Comments 1. Monitor NPO status. 2. If enteral feeding needed, recommend to start Diabetisource AC at 30ml/hr continuous. Increased to goal rate of 60ml/hr continuous as tolerated. This will provide 1728kcal, 86g protein and 1179ml water, meeting 100% of nutritional needs. 3. Monitor wt, labs and skin integrity 4. F/U as high risk in 2-3 days, 07/21-07/22 Expected Outcomes/Goals Expected Outcomes/Goals 1. Pt to meet at least 75% of nutritional needs in 2-3 days 2. Wt stability, skin to remain intact, labs to improve .
--- NOTE | 2017-07-20 15:02 | Diagnostic Imaging Report ---
Renal ultrasound HISTORY: Abnormal renal function test The right kidney measures 11.8 x 6.3 x 6.4 cm. No focal parenchymal lesions. There is a moderate to severe degree of hydronephrosis involving the right renal collecting system. Etiology uncertain. The left kidney measures 12.8 x 6.1 x 6.9 cm. No focal lesions. No hydronephrosis. The urinary bladder cannot be evaluated due to lack of distention. IMPRESSION: 1. Hydronephrosis involving the right renal collecting system. Etiology uncertain. A CT scan would provide additional assessment and evaluation.
[2017-07-20] MEDS: Insulin Detemir 100 units/mL 10mL Vial SUBQ SCH (16:44)
[2017-07-20] MEDS: Vancomycin HCL 250 mg /10mL UDC GT SCH ×2 (17:54→23:32)
--- NOTE | 2017-07-20 18:04 | General Progress Note ---
Subjective - Review of Systems Service Date: 07/20/17 Subjective: sleeping, comfortable, on vent Objective - Results Result Diagrams: 07/20/17 04:10 07/20/17 04:10 Recent Labs: Laboratory Last Values WBC 27.9 Th/cmm (4.8-10.8) H* 07/20/17 04:10 RBC 2.66 Mil/cmm (3.80-5.10) L 07/20/17 04:10 Hgb 7.6 gm/dL (12-16) L* 07/20/17 04:10 Hct 22.6 % (41.0-60) L D 07/20/17 04:10 MCV 85.1 fl (81-100) 07/20/17 04:10 MCH 28.5 pg (27.0-31.0) 07/20/17 04:10 MCHC Differential 33.5 pg (28.0-36.0) 07/20/17 04:10 RDW 14.5 % (11.5-20.0) 07/20/17 04:10 Plt Count 247 Th/cmm (150-400) 07/20/17 04:10 MPV 11.7 fl 07/20/17 04:10 Band Neutrophils % 12 % (0-10) H 07/20/17 04:10 Neutrophils (Manual) 78 % (40-80) 07/20/17 04:10 Lymphocytes 5 % (20-50) L 07/20/17 04:10 Monocytes 5 % (2-10) 07/20/17 04:10 Hypochromia 1+ 07/18/17 22:15 Platelet Estimate ADEQUATE (NORMAL) 07/20/17 04:10 Polychromasia 1+ 07/18/17 22:15 Smear Path Review YES 07/18/17 22:15 Eos Smear Source URINE 07/19/17 22:30 Eos Smear Total Cells NONE SEEN (NONE SEEN) 07/19/17 22:30 Sodium 139 mEq/L (136-145) 07/20/17 04:10 Potassium 2.9 mEq/L (3.5-5.1) L* D 07/20/17 04:10 Chloride 104 mEq/L (98-107) 07/20/17 04:10 Carbon Dioxide 16.9 mEq/L (21.0-31.0) L 07/20/17 04:10 Anion Gap 21.0 (7.0-16.0) H 07/20/17 04:10 BUN 116 mg/dL (7-25) H* 07/20/17 04:10 Creatinine 2.3 mg/dL (0.6-1.2) H 07/20/17 04:10 Est GFR ( Amer) 27.6 ml/min (>90) 07/20/17 04:10 Est GFR (Non-Af Amer) 22.8 ml/min 07/20/17 04:10 BUN/Creatinine Ratio 50.4 07/20/17 04:10 Glucose 436 mg/dL (70-105) H 07/20/17 04:10 POC Glucose 458 MG/DL (70 - 105) H* 07/20/17 16:32 Hemoglobin A1c % 6.2 % (4.0-6.0) H 07/18/17 23:30 Whole Bld Lactic Acid 0.61 mmol/L (0.60-1.99) 07/20/17 04:10 Uric Acid 9.5 mg/dL (2.3-6.6) H 07/20/17 04:10 Calcium 9.4 mg/dL (8.6-10.3) 07/20/17 04:10 Phosphorus 4.5 mg/dL (2.5-5.0) 07/20/17 04:10 Magnesium 2.9 mg/dL (1.9-2.7) H 07/20/17 04:10 Total Bilirubin 0.3 mg/dL (0.3-1.0) 07/20/17 04:10 AST 8 U/L (13-39) L 07/20/17 04:10 ALT 14 U/L (7-52) 07/20/17 04:10 Alkaline Phosphatase 87 U/L (34-104) 07/20/17 04:10 Ammonia 33 umol/L (16-53) 07/19/17 04:15 Creatine Kinase 26 U/L (30-223) L 07/18/17 22:15 Troponin I 0.27 ng/mL (0.01-0.05) H* 07/18/17 22:15 B-Natriuretic Peptide 1420.0 pg/mL (5.0-100.0) H 07/18/17 22:15 Total Protein 6.6 gm/dL (6.0-8.3) 07/20/17 04:10 Albumin 2.7 gm/dL (3.7-5.3) L 07/20/17 04:10 Globulin 3.9 gm/dL 07/20/17 04:10 Albumin/Globulin Ratio 0.7 (1.0-1.8) L 07/20/17 04:10 TSH 2.30 uIU/ml (0.34-5.60) 07/19/17 04:15 Urine Source [place] 07/18/17 21:30 Urine Color RED 07/18/17 21:30 Urine Clarity CLOUDY (CLEAR) H 07/18/17 21:30 Urine pH 7.5 (4.6 - 8.0) 07/18/17 21:30 Ur Specific [place] 1.025 (1.005-1.030) 07/18/17 21:30 Urine Protein >=300 mg/dL (NEGATIVE) 07/18/17 21:30 Urine Glucose (UA) NEGATIVE mg/dL (NEGATIVE) 07/18/17 21:30 Urine Ketones NEGATIVE mg/dL (NEGATIVE) 07/18/17 21:30 Urine Blood LARGE (NEGATIVE) H 07/18/17 21:30 Urine Nitrate NEGATIVE (NEGATIVE) 07/18/17 21:30 Urine Bilirubin NEGATIVE (NEGATIVE) 07/18/17 21:30 Urine Urobilinogen 0.2 E.U./dL (0.2 - 1.0) 07/18/17 21:30 Ur Leukocyte Esterase SMALL (NEGATIVE) H 07/18/17 21:30 Urine RBC 50-100 /hpf (0-5) H 07/18/17 21:30 Urine WBC 6-10 /hpf (0-5) H 07/18/17 21:30 Ur Epithelial Cells FEW /lpf (FEW) 07/18/17 21:30 Urine Bacteria MANY /hpf (NONE SEEN) 07/18/17 21:30 Ur Random Sodium 28 mmol/L 07/19/17 22:30 Urine Creatinine 35.0 mg/dl (28.0-217.0) 07/19/17 22:30 Blood Type O NEGATIVE 07/20/17 08:15 Antibody Screen NEGATIVE 07/20/17 08:15 - Physical Exam Vitals and I&O: Vital Signs Temp 98.4 F 07/20/17 16:00 Pulse 91 07/20/17 17:06 Resp 14 07/20/17 17:00 BP 136/62 07/20/17 17:00 Pulse Ox 100 07/20/17 17:06 Intake & Output 07/19/17 07/20/17 07/20/17 18:59 06:59 18:59 Intake Total 3796.363 1219 200 Output Total 650 750 Balance 756.534 0726 -550 Weight (lbs) 80.739 kg 80.739 kg Intake: Intake, IV Amount 811.817 1289 100 Piperacillin Sodium/ 200 100 100 Tazobact 2.25 gm In Sodium Chloride 0.9% 100 ml @ 100 mls/hr IV Q8H [facility] Rx#:[id number] Sodium Chloride 0.9% 1, 1000 000 ml @ 100 mls/hr IV . Q10H [facility] Rx#:[id number] Sodium Chloride 0.9% 1, 653.333 000 ml @ 80 mls/hr IV . [id number] [facility] Rx#:[id number] Vancomycin HCl 1 gm In 250 Dextrose 5% 250 ml @ 165 mls/hr IV Q36H [facility] Rx#: [id number] Other 150 100 Output: Urine 650 750 Stool 0 0 Other: # Bowel Movements 4 0 Stool Characteristics Mucoid Mucoid Brown Active Medications: Current Medications Acetaminophen (Tylenol 650mg/20.3ml Suspension) 650 mg GT Q4H PRN PRN Reason: Pain or Fever >101 Stop: 09/16/17 23:47 Albuterol/Ipratropium (Duoneb Neb) 3 ml HHN Q6HRT [facility] Stop: 09/17/17 12:59 Last Admin: 07/20/17 13:39 Dose: 3 ml Albuterol/Ipratropium (Duoneb Neb) 3 ml HHN Q2HR PRN PRN Reason: Shortness of Breath Stop: 09/16/17 23:47 Ascorbic Acid (Vitamin C) 500 mg GT DAILY [facility] Stop: 09/17/17 08:59 Last Admin: 07/20/17 09:07 Dose: 500 mg Bisacodyl (Dulcolax 10 Mg Supp) 10 mg RC DAILY PRN PRN Reason: constip Stop: 09/16/17 23:47 Carvedilol (Coreg) 3.125 mg GT BID [facility] Stop: 09/17/17 08:59 Last Admin: 07/20/17 16:43 Dose: 3.125 mg Chlorhexidine Gluconate (Peridex) 15 ml MM 0800,1999 [facility] Stop: 09/17/17 07:59 Last Admin: 07/20/17 07:56 Dose: 15 ml Docusate Sodium (Colace) 100 mg GT BID PRN PRN Reason: Constipation Famotidine (Pepcid) 20 mg GT Q12H [facility] Stop: 09/16/17 23:44 Last Admin: 07/20/17 11:56 Dose: 20 mg Guaifenesin (Robitussin) 200 mg PO Q4HR PRN PRN Reason: Cough or Congestion Stop: 09/16/17 23:54 Heparin Sodium (Porcine) (Heparin) 5,000 units SUBQ Q12HR [facility] Stop: 09/17/17 08:59 Last Admin: 07/20/17 09:09 Dose: 5,000 units Piperacillin Sod/Tazobactam (Sod 2.25 gm/ Sodium Chloride) 100 mls @ 100 mls/ hr IV Q8H [facility] Stop: 09/17/17 08:59 Last Admin: 07/20/17 16:43 Dose: 100 mls/hr Vancomycin HCl 1 gm/ Dextrose 250 mls @ 165 mls/hr IV Q36H [facility] Stop: 09/18/17 01:59 Last Infusion: 07/20/17 04:00 Dose: Infused Sodium Chloride (Nacl 0.9%) 1,000 mls @ 100 mls/hr IV .Q10H [facility] Stop: 09/16/17 23:44 Last Admin: 07/20/17 02:00 Dose: 100 mls/hr Insulin Aspart (Novolog) 0 units SUBQ Q6HR [facility] PRN Reason: Protocol Stop: 09/18/17 17:59 Insulin Detemir (Levemir Insulin) 18 units SUBQ BID [facility] PRN Reason: Protocol Stop: 09/18/17 08:59 Last Admin: 07/20/17 16:44 Dose: 18 units Lactobacillus Rhamnosus (Culturelle) 1 each PO DAILY [facility] Stop: 09/18/17 08:59 Last Admin: 07/20/17 09:07 Dose: 1 each Magnesium Hydroxide (Milk Of Magnesia) 30 ml GT HS PRN PRN Reason: Constipation Stop: 09/16/17 23:47 Metoclopramide HCl (Reglan) 5 mg GT Q8H [facility] Stop: 09/16/17 23:44 Last Admin: 07/20/17 15:45 Dose: Not Given Miscellaneous (Vancomycin Iv Per Pharmacy) 1 ea MC PRN [facility] Stop: 09/16/17 23:44 Miscellaneous (Clinical Monitoring) 1 ea MC PRN PRN PRN Reason: RENAL DOSE [facility]OSYN Stop: 09/17/17 08:23 Miscellaneous (Probiotic Screen) 1 ea MC PRN PRN PRN Reason: PROTOCOL Stop: 09/17/17 10:14 Miscellaneous (Vte Chemical Prophylaxis Screen/ Admission) 1 ea MC PRN PRN PRN Reason: PROTOCOL Stop: 09/17/17 13:47 Morphine Sulfate (Morphine) 2 mg IVP Q4H PRN PRN Reason: Pain (Severe) Stop: 09/16/17 23:53 Ondansetron HCl (Zofran) 4 mg IV Q8H PRN PRN Reason: Nausea / Vomiting Stop: 09/16/17 23:54 Sodium Phosphate (Fleet Enema) 135 ml RC Q48H PRN PRN Reason: Constipation Stop: 09/16/17 23:47 Vancomycin HCl (Vancomycin Oral) 250 mg GT Q6HR [facility] Stop: 09/18/17 17:59 Last Admin: 07/20/17 17:54 Dose: 250 mg Zinc Sulfate (Zinc Sulfate) 220 mg GT DAILY [facility] Stop: 09/17/17 08:59 Last Admin: 07/20/17 09:07 Dose: 220 mg General: No acute distress HEENT: Atraumatic, Mucous membr. moist/pink Neck: Supple, +2 carotid pulse wo bruit Cardiovascular: Regular rate, Normal S1, Normal S2 Lungs: Other (coarse rhonchi) Abdomen: Soft, Distended Extremities: no Edema Neurological: Sensation intact Skin: no Rash Psych/Mental Status: Mood NL - Procedures Procedures: Procedures Procedure Code Date RESPIRATORY VENTILATION, 24-96 CONSECUTIVE HOURS [id number] 07/18/17 Assessment/Plan - Assessment Assessment: [place]LA [place] etio? Gross hematuria, better Sepsis 2nd to Cx UTI RFVD Anemia CD Ess Htn Type 2 DM Met Enceph - Plan Plan: Lab - Result Diagrams 07/20/17 04:10 07/20/17 04:10 Current Medications Acetaminophen (Tylenol 650mg/20.3ml Suspension) 650 mg GT Q4H PRN PRN Reason: Pain or Fever >101 Stop: 09/16/17 23:47 Albuterol/Ipratropium (Duoneb Neb) 3 ml HHN Q6HRT [facility] Stop: 09/17/17 12:59 Last Admin: 07/20/17 13:39 Dose: 3 ml Albuterol/Ipratropium (Duoneb Neb) 3 ml HHN Q2HR PRN PRN Reason: Shortness of Breath Stop: 09/16/17 23:47 Ascorbic Acid (Vitamin C) 500 mg GT DAILY [facility] Stop: 09/17/17 08:59 Last Admin: 07/20/17 09:07 Dose: 500 mg Bisacodyl (Dulcolax 10 Mg Supp) 10 mg RC DAILY PRN PRN Reason: constip Stop: 09/16/17 23:47 Carvedilol (Coreg) 3.125 mg GT BID [facility] Stop: 09/17/17 08:59 Last Admin: 07/20/17 16:43 Dose: 3.125 mg Chlorhexidine Gluconate (Peridex) 15 ml MM 0800,2000 [facility] Stop: 09/17/17 07:59 Last Admin: 07/20/17 07:56 Dose: 15 ml Docusate Sodium (Colace) 100 mg GT BID PRN PRN Reason: Constipation Famotidine (Pepcid) 20 mg GT Q12H [facility] Stop: 09/16/17 23:44 Last Admin: 07/20/17 11:56 Dose: 20 mg Guaifenesin (Robitussin) 200 mg PO Q4HR PRN PRN Reason: Cough or Congestion Stop: 09/16/17 23:54 Heparin Sodium (Porcine) (Heparin) 5,000 units SUBQ Q12HR [facility] Stop: 09/17/17 08:59 Last Admin: 07/20/17 09:09 Dose: 5,000 units Piperacillin Sod/Tazobactam (Sod 2.25 gm/ Sodium Chloride) 100 mls @ 100 mls/ hr IV Q8H [facility] Stop: 09/17/17 08:59 Last Admin: 07/20/17 16:43 Dose: 100 mls/hr Vancomycin HCl 1 gm/ Dextrose 250 mls @ 165 mls/hr IV Q36H [facility] Stop: 09/18/17 01:59 Last Infusion: 07/20/17 04:00 Dose: Infused Sodium Chloride (Nacl 0.9%) 1,000 mls @ 100 mls/hr IV .Q10H [facility] Stop: 09/16/17 23:44 Last Admin: 07/20/17 02:00 Dose: 100 mls/hr Insulin Aspart (Novolog) 0 units SUBQ Q6HR [facility] PRN Reason: Protocol Stop: 09/18/17 17:59 Insulin Detemir (Levemir Insulin) 18 units SUBQ BID [facility] PRN Reason: Protocol Stop: 09/18/17 08:59 Last Admin: 07/20/17 16:44 Dose: 18 units Lactobacillus Rhamnosus (Culturelle) 1 each PO DAILY [facility] Stop: 09/18/17 08:59 Last Admin: 07/20/17 09:07 Dose: 1 each Magnesium Hydroxide (Milk Of Magnesia) 30 ml GT HS PRN PRN Reason: Constipation Stop: 09/16/17 23:47 Metoclopramide HCl (Reglan) 5 mg GT Q8H [facility] Stop: 09/16/17 23:44 Last Admin: 07/20/17 15:45 Dose: Not Given Miscellaneous (Vancomycin Iv Per Pharmacy) 1 ea MC PRN [facility] Stop: 09/16/17 23:44 Miscellaneous (Clinical Monitoring) 1 ea PRN PRN PRN Reason: RENAL DOSE [facility] Stop: 09/17/17 08:23 Miscellaneous (Probiotic Screen) 1 ea PRN PRN PRN Reason: PROTOCOL Stop: 09/17/17 10:14 Miscellaneous (Vte Chemical Prophylaxis Screen/ Admission) 1 ea MC PRN PRN PRN Reason: PROTOCOL Stop: 09/17/17 13:47 Morphine Sulfate (Morphine) 2 mg IVP Q4H PRN PRN Reason: Pain (Severe) Stop: 09/16/17 23:53 Ondansetron HCl (Zofran) 4 mg IV Q8H PRN PRN Reason: Nausea / Vomiting Stop: 09/16/17 23:54 Sodium Phosphate (Fleet Enema) 135 ml RC Q48H PRN PRN Reason: Constipation Stop: 09/16/17 23:47 Vancomycin HCl (Vancomycin Oral) 250 mg GT Q6HR [facility] Stop: 09/18/17 17:59 Last Admin: 07/20/17 17:54 Dose: 250 mg Zinc Sulfate (Zinc Sulfate) 220 mg GT DAILY [facility] Stop: 09/17/17 08:59 Last Admin: 07/20/17 09:07 Dose: 220 mg Lab - Result Diagrams 07/20/17 04:10 07/20/17 04:10 kidney fnc gradually improving replace K add NaHC03 drop Hgb due to hematuria request CT of abd/pelvis due to [place] f/u elelctrolytes, cbc C. diff colitis Nutritional Asmnt/Malnutr-PDOC - Dietary Evaluation Malnutrition Findings (Please click <Entered> for more info): Nutritional Asmnt/Malnutrition Start: 07/19/17 17: 24 Text: Status: Complete Freq: Document 07/19/17 17:25 LCHENG (Rec: 07/19/17 17:43 [email or web address] [id number]) Nutritional Asmnt/Malnutrition Patient General Information Nutritional Screening High Risk Consult Diagnosis Sepsis, UTI Pertinent Medical Hx/Surgical Hx HTN, DM, CAD, CHF, chronic resperatory failure, anemia, PEG/Gtube, tracheostomy Subjective Information Consult received for elevated BG. Pt seen lying in bed, on vent, non verbal comminication noted. Not able to obtain nutrition hx. Spoke with RN, no nutrition plan at this time . Current Diet Order/ Nutrition Support NPO Pertinent Medications Vitamin C, novolog, cultrelle, reglan, vancomycin, , piperacillin, Nacl 0.9%, Zinc Pertinent Labs 07/19 Na 132, K 5.3, Cl 97L, BUN 137, Cr 2.7, Glu 353, POC 324-394, A1C 6.2 Nutritional Hx/Data Height 1.57 m Height (Calculated Centimeters) 157.5 Current Weight (lbs) 80.83 kg Weight (Calculated Kilograms) 80.8 Weight (Calculated Grams) 46886.2 [place] Body Weight 110 % [place] Body Weight 162 Body Mass Index (BMI) 32.5 Weight Status Obese GI Symptoms GI Symptoms None Last BM none Usual diet at home Glucerna 1.5 60ml/hr x 20hr daily at [facility] Skin Integrity/Comment: decubitus ulceration to sacrum Estimated Nutritional Goals BEE in Kcals: Adj wt of IBW Calories/Kcals/Kg 30-35 Kcals Calculated Protein: Adj wt of IBW Protein g/k.2-1.5 Protein Calculated 69-87 Fluid: ml Nutritional Problem 2. Problem Problem increased nutrition needs ( calorie and protein) Etiology increased metabolic demand for healing Signs/Symptoms: sepsis 1. Problem Problem altered nutrition related lab values Etiology hx of DM, acute renal insufficiency Signs/Symptoms: BUN 137, Cr 2.7, Glu 353, POC 324-394, A1C 6.2 Malnutrition Alert Protein-Calorie Malnutrition N/A Is there a minimum of two criteria No selected? Query Text:Check all the applicable criteria. A minimum of two criteria are recommended for diagnosis of either severe or non-severe malnutrition. Intervention/Recommendation Comments 1. Monitor NPO status. 2. If enteral feeding needed, recommend to start Diabetisource AC at 30ml/hr continuous. Increased to goal rate of 60ml/hr continuous as tolerated. This will provide 1728kcal, 86g protein and 1179ml water, meeting 100% of nutritional needs. 3. Monitor wt, labs and skin integrity 4. F/U as high risk in 2-3 days, 07/21-07/22 Expected Outcomes/Goals Expected Outcomes/Goals 1. Pt to meet at least 75% of nutritional needs in 2-3 days 2. Wt stability, skin to remain intact, labs to improve .
[2017-07-21] MEDS: INSULIN ASPART, RECOMBINANT 100 UNITS/ML SUBQ SCH ×4 (00:03→18:10)
[2017-07-21] MEDS: Piperacillin Sodium/Tazobact 2.25 GM in Sodium Chloride 0.9% 100 ML IV SCH ×3 (00:09→17:51)
[2017-07-21] MEDS: Vancomycin HCL 250 mg /10mL UDC GT SCH ×3 (05:14→17:56)
[2017-07-21 05:19] LABS: HEMOGLOBIN 9.5 gm/dL (12-16); MANUAL DIFF REQUIRED? YES; MEAN CELL VOLUME 85.1 fl (81-100); MEAN CORPUSCULAR HEMOGLOBIN 28.8 pg (27.0-31.0); MEAN CORPUSCULAR HGB CONC 33.8 pg (28.0-36.0); MEAN PLATELET VOLUME 11.7 fl; PLATELET COUNT 255 Th/cmm (150-400); RED BLOOD COUNT 3.29 Mil/cmm (3.80-5.10); RED CELL DISTRIBUTION WIDTH 13.5 % (11.5-20.0)
[2017-07-21 05:27] LABS: WHITE BLOOD COUNT 22.2 Th/cmm (4.8-10.8)
[2017-07-21 05:40] LABS: CALCIUM SERUM 9.3 mg/dL (8.6-10.3); CREATININE - SERUM 1.9 mg/dL (0.6-1.2); GFR AFRICAN-AMERICAN 34.4 ml/min (>90); GFR NON AFRICAN-AMERICAN 28.5 ml/min
[2017-07-21 06:08] LABS: NEUTROPHILS 15 % (40-80); TOTAL CELLS COUNTED 80
[2017-07-21 06:09] LABS: BAND NEUTROPHILE 5 % (0-10); PLATELET ESTIMATE ADEQUATE (NORMAL)
[2017-07-21] MEDS: Sodium Chloride 0.9% 1,000 ML IV SCH ×3 (06:53→16:53)
[2017-07-21] MEDS: Albuterol/Ipratropium Neb 3 ML AERS HHN SCH ×3 (07:13→18:59)
[2017-07-21] MEDS: Chlorhexidine Gluconate 0.12% 15mL Mouthwash MM SCH ×2 (07:56→20:19)
[2017-07-21] MEDS: Multivitamin w/ Minerals Tab GT SCH (08:43)
[2017-07-21] MEDS: Lactobacillus Rhamnosus 10 Billion CFU Capsule PO SCH (08:44)
[2017-07-21] MEDS: Insulin Detemir 100 units/mL 10mL Vial SUBQ SCH ×2 (08:45→17:18)
[2017-07-21] MEDS ORDERED: Potassium Chloride 40 MEQ, Lidocaine 1% 20mL Vial 25 MG in Sodium Chloride 0.9% 250 ML IV ONE (10:28)
[2017-07-21 11:11] LABS: CREATININEURINE 26.3 mg/dL (Not Estab.); MICROALBUMIN RANDOM RUINE 2398.5 ug/mL (Not Estab.)
--- NOTE | 2017-07-21 12:07 | Internal Medicine Prog Note ---
Internal Medicine Subjective - Subjective Service Date: 07/21/17 Patient seen and examined:: with staff Patient is:: awake, non-verbal Per staff patient has:: tolerating meds Internal Medicine Objective - Results Result Diagrams: 07/21/17 04:39 07/21/17 04:39 Recent Labs: Laboratory Last Values WBC 22.2 Th/cmm (4.8-10.8) H* 07/21/17 04:39 RBC 3.29 Mil/cmm (3.80-5.10) L 07/21/17 04:39 Hgb 9.5 gm/dL (12-16) L 07/21/17 04:39 Hct 28.0 % (41.0-60) L D 07/21/17 04:39 MCV 85.1 fl (81-100) 07/21/17 04:39 MCH 28.8 pg (27.0-31.0) 07/21/17 04:39 MCHC Differential 33.8 pg (28.0-36.0) 07/21/17 04:39 RDW 13.5 % (11.5-20.0) 07/21/17 04:39 Plt Count 255 Th/cmm (150-400) 07/21/17 04:39 MPV 11.7 fl 07/21/17 04:39 Band Neutrophils % 5 % (0-10) 07/21/17 04:39 Neutrophils (Manual) 15 % (40-80) L 07/21/17 04:39 Lymphocytes 5 % (20-50) L 07/20/17 04:10 Monocytes 5 % (2-10) 07/20/17 04:10 Hypochromia 1+ 07/18/17 22:15 Platelet Estimate ADEQUATE (NORMAL) 07/21/17 04:39 Polychromasia 1+ 07/18/17 22:15 Smear Path Review YES 07/18/17 22:15 Eos Smear Source URINE 07/19/17 22:30 Eos Smear Total Cells NONE SEEN (NONE SEEN) 07/19/17 22:30 Sodium 144 mEq/L (136-145) 07/21/17 04:39 Potassium 2.0 mEq/L (3.5-5.1) L* 07/21/17 04:39 Chloride 109 mEq/L (98-107) H 07/21/17 04:39 Carbon Dioxide 22.0 mEq/L (21.0-31.0) 07/21/17 04:39 Anion Gap 15.0 (7.0-16.0) 07/21/17 04:39 BUN 98 mg/dL (7-25) H* 07/21/17 04:39 Creatinine 1.9 mg/dL (0.6-1.2) H 07/21/17 04:39 Est GFR ( Amer) 34.4 ml/min (>90) 07/21/17 04:39 Est GFR (Non-Af Amer) 28.5 ml/min 07/21/17 04:39 BUN/Creatinine Ratio 51.6 07/21/17 04:39 Glucose 433 mg/dL (70-105) H 07/21/17 04:39 POC Glucose 458 MG/DL (70 - 105) H* 07/20/17 16:32 Hemoglobin A1c % 6.2 % (4.0-6.0) H 07/18/17 23:30 Whole Bld Lactic Acid 0.61 mmol/L (0.60-1.99) 07/20/17 04:10 Uric Acid 9.5 mg/dL (2.3-6.6) H 07/20/17 04:10 Calcium 9.3 mg/dL (8.6-10.3) 07/21/17 04:39 Phosphorus 4.5 mg/dL (2.5-5.0) 07/20/17 04:10 Magnesium 2.9 mg/dL (1.9-2.7) H 07/20/17 04:10 Total Bilirubin 0.3 mg/dL (0.3-1.0) 07/20/17 04:10 AST 8 U/L (13-39) L 07/20/17 04:10 ALT 14 U/L (7-52) 07/20/17 04:10 Alkaline Phosphatase 87 U/L (34-104) 07/20/17 04:10 Ammonia 33 umol/L (16-53) 07/19/17 04:15 Creatine Kinase 26 U/L (30-223) L 07/18/17 22:15 Troponin I 0.27 ng/mL (0.01-0.05) H* 07/18/17 22:15 B-Natriuretic Peptide 1420.0 pg/mL (5.0-100.0) H 07/18/17 22:15 Total Protein 6.6 gm/dL (6.0-8.3) 07/20/17 04:10 Albumin 2.7 gm/dL (3.7-5.3) L 07/20/17 04:10 Globulin 3.9 gm/dL 07/20/17 04:10 Albumin/Globulin Ratio 0.7 (1.0-1.8) L 07/20/17 04:10 TSH 2.30 uIU/ml (0.34-5.60) 07/19/17 04:15 Urine Source [place] 07/18/17 21:30 Urine Color RED 07/18/17 21:30 Urine Clarity CLOUDY (CLEAR) H 07/18/17 21:30 Urine pH 7.5 (4.6 - 8.0) 07/18/17 21:30 Ur Specific [place] 1.025 (1.005-1.030) 07/18/17 21:30 Urine Protein >=300 mg/dL (NEGATIVE) 07/18/17 21:30 Urine Glucose (UA) NEGATIVE mg/dL (NEGATIVE) 07/18/17 21:30 Urine Ketones NEGATIVE mg/dL (NEGATIVE) 07/18/17 21:30 Urine Blood LARGE (NEGATIVE) H 07/18/17 21:30 Urine Nitrate NEGATIVE (NEGATIVE) 07/18/17 21:30 Urine Bilirubin NEGATIVE (NEGATIVE) 07/18/17 21:30 Urine Urobilinogen 0.2 E.U./dL (0.2 - 1.0) 07/18/17 21:30 Ur Leukocyte Esterase SMALL (NEGATIVE) H 07/18/17 21:30 Urine RBC 50-100 /hpf (0-5) H 07/18/17 21:30 Urine WBC 6-10 /hpf (0-5) H 07/18/17 21:30 Ur Epithelial Cells FEW /lpf (FEW) 07/18/17 21:30 Urine Bacteria MANY /hpf (NONE SEEN) 07/18/17 21:30 Ur Random Sodium 28 mmol/L 07/19/17 22:30 Urine Creatinine 26.3 mg/dl (Not Estab.) 07/19/17 22:30 Urine Microalbumin 2398.5 ug/mL (Not Estab.) 07/19/17 22:30 Random Vancomycin 22.8 ug/mL (5.0-40.0) 07/21/17 04:39 Blood Type O NEGATIVE 07/20/17 08:15 Antibody Screen NEGATIVE 07/20/17 08:15 - Physical Exam Vitals and I&O: Vital Signs Temp 97.4 F 07/21/17 08:00 Pulse 85 07/21/17 10:30 Resp 21 07/21/17 10:00 BP 130/49 07/21/17 10:00 Pulse Ox 100 07/21/17 10:30 Intake & Output 07/20/17 07/21/17 07/21/17 18:59 06:59 18:59 Intake Total 6765 976 2044 Output Total 1575 1100 0 Balance 125 -1000 1150 Weight (lbs) 178 lb 139 lb 3.2 oz 139 lb 3.2 oz Intake: Intake, IV Amount 0318 955 7858 Piperacillin Sodium/ 200 100 100 Tazobact 2.25 gm In Sodium Chloride 0.9% 100 ml @ 100 mls/hr IV Q8H [facility] Rx#:[id number] Sodium Chloride 0.9% 1, 1000 1000 000 ml @ 100 mls/hr IV . Q10H [facility] Rx#:[id number] Oral 0 Blood Product 250 Other 250 50 Output: Urine 1575 1100 Stool 0 0 Urine/Stool Mix 0 Other: # Bowel Movements 0 0 0 Active Medications: Current Medications Acetaminophen (Tylenol 650mg/20.3ml Suspension) 650 mg GT Q4H PRN PRN Reason: Pain or Fever >101 Stop: 09/16/17 23:47 Albuterol/Ipratropium (Duoneb Neb) 3 ml HHN Q6HRT [facility] Stop: 09/17/17 12:59 Last Admin: 07/21/17 07:13 Dose: 3 ml Albuterol/Ipratropium (Duoneb Neb) 3 ml HHN Q2HR PRN PRN Reason: Shortness of Breath Stop: 09/16/17 23:47 Ascorbic Acid (Vitamin C) 500 mg GT DAILY [facility] Stop: 09/17/17 08:59 Last Admin: 07/21/17 08:44 Dose: 500 mg Bisacodyl (Dulcolax 10 Mg Supp) 10 mg RC DAILY PRN PRN Reason: constip Stop: 09/16/17 23:47 Carvedilol (Coreg) 3.125 mg GT BID [facility] Stop: 09/17/17 08:59 Last Admin: 07/21/17 08:44 Dose: 3.125 mg Chlorhexidine Gluconate (Peridex) 15 ml MM 0800,1999 [facility] Stop: 09/17/17 07:59 Last Admin: 07/21/17 07:56 Dose: 15 ml Docusate Sodium (Colace) 100 mg GT BID PRN PRN Reason: Constipation Famotidine (Pepcid) 20 mg GT Q12H [facility] Stop: 09/16/17 23:44 Last Admin: 07/21/17 11:55 Dose: 20 mg Guaifenesin (Robitussin) 200 mg PO Q4HR PRN PRN Reason: Cough or Congestion Stop: 09/16/17 23:54 Heparin Sodium (Porcine) (Heparin) 5,000 units SUBQ Q12HR [facility] Stop: 09/17/17 08:59 Last Admin: 07/21/17 08:44 Dose: 5,000 units Piperacillin Sod/Tazobactam (Sod 2.25 gm/ Sodium Chloride) 100 mls @ 100 mls/ hr IV Q8H [facility] Stop: 09/17/17 08:59 Last Infusion: 07/21/17 09:44 Dose: Infused Vancomycin HCl 1 gm/ Dextrose 250 mls @ 165 mls/hr IV Q36H [facility] Stop: 09/18/17 01:59 Last Infusion: 07/20/17 04:00 Dose: Infused Sodium Chloride (Nacl 0.9%) 1,000 mls @ 100 mls/hr IV .Q10H [facility] Stop: 09/16/17 23:44 Last Admin: 07/21/17 07:56 Dose: 100 mls/hr Potassium Chloride 40 meq/Lidocaine HCl 25 mg/ Sodium Chloride 272.5 mls @ 68 mls/hr IV X1 ONE Stop: 07/21/17 14:28 Last Admin: 07/21/17 11:12 Dose: 68 mls/hr Vancomycin HCl 1 gm/ Sodium (Chloride) 250 mls @ 165 mls/hr IV 1600 ONE Stop: 07/21/17 17:30 Insulin Aspart (Novolog) 0 units SUBQ Q6HR [facility] PRN Reason: Protocol Stop: 09/18/17 17:59 Last Admin: 07/21/17 11:55 Dose: 9 units Insulin Detemir (Levemir Insulin) 18 units SUBQ BID [facility] PRN Reason: Protocol Stop: 09/18/17 08:59 Last Admin: 07/21/17 08:45 Dose: 18 units Lactobacillus Rhamnosus (Culturelle) 1 each PO DAILY [facility] Stop: 09/18/17 08:59 Last Admin: 07/21/17 08:44 Dose: 1 each Magnesium Hydroxide (Milk Of Magnesia) 30 ml GT HS PRN PRN Reason: Constipation Stop: 09/16/17 23:47 Metoclopramide HCl (Reglan) 5 mg GT Q8H [facility] Stop: 09/16/17 23:44 Last Admin: 07/21/17 07:56 Dose: 5 mg Miscellaneous (Vancomycin Iv Per Pharmacy) 1 ea MC PRN [facility] Stop: 09/16/17 23:44 Miscellaneous (Clinical Monitoring) 1 ea PRN PRN PRN Reason: RENAL DOSE ZOSYN Stop: 09/17/17 08:23 Miscellaneous (Probiotic Screen) 1 ea PRN PRN PRN Reason: PROTOCOL Stop: 09/17/17 10:14 Miscellaneous (Vte Chemical Prophylaxis Screen/ Admission) 1 ea MC PRN PRN PRN Reason: PROTOCOL Stop: 09/17/17 13:47 Morphine Sulfate (Morphine) 2 mg IVP Q4H PRN PRN Reason: Pain (Severe) Stop: 09/16/17 23:53 Ondansetron HCl (Zofran) 4 mg IV Q8H PRN PRN Reason: Nausea / Vomiting Stop: 09/16/17 23:54 Sodium Phosphate (Fleet Enema) 135 ml RC Q48H PRN PRN Reason: Constipation Stop: 09/16/17 23:47 Vancomycin HCl (Vancomycin Oral) 250 mg GT Q6HR [facility] Stop: 09/18/17 17:59 Last Admin: 07/21/17 11:55 Dose: 250 mg Zinc Sulfate (Zinc Sulfate) 220 mg GT DAILY [facility] Stop: 09/17/17 08:59 Last Admin: 07/21/17 08:44 Dose: 220 mg General: weak, obtunded HEENT: NC/AT, PERRLA Neck: Supple Lungs: ronchi Cardiovascular: RRR, without murmur Abdomen: soft, non-tender, non-distended, +GT, positive bowel sound Extremities: excoriation Neurological: bedbound - Procedures Procedures: Procedures Procedure Code Date RESPIRATORY VENTILATION, 24-96 CONSECUTIVE HOURS [id number] 07/18/17 Internal Medicine Assmt/Plan - Assessment Assessment: sepsis chronic respiratory failure VDRF leukocytosis hematuria htn dm2 cad chf anemia tracheostomy status hypokalemia acute renal insufficiency elevated troponin mild protein calorie malnutrition acute uti - Plan Plan: continue with ivabx renal follow up monitor h/h follow up labs in am vent support continue current plan of care Nutritional Asmnt/Malnutr-PDOC - Dietary Evaluation Malnutrition Findings (Please click <Entered> for more info): Nutritional Asmnt/Malnutrition Start: 07/19/17 17: 24 Text: Status: Complete Freq: Document 07/19/17 17:25 LCHENG (Rec: 07/19/17 17:43 LCJOSE DE JESUSG [id number]) Nutritional Asmnt/Malnutrition Patient General Information Nutritional Screening High Risk Consult Diagnosis Sepsis, UTI Pertinent Medical Hx/Surgical Hx HTN, DM, CAD, CHF, chronic resperatory failure, anemia, PEG/Gtube, tracheostomy Subjective Information Consult received for elevated BG. Pt seen lying in bed, on vent, non verbal comminication noted. Not able to obtain nutrition hx. Spoke with RN, no nutrition plan at this time . Current Diet Order/ Nutrition Support NPO Pertinent Medications Vitamin C, novolog, cultrelle, reglan, vancomycin, , piperacillin, Nacl 0.9%, Zinc Pertinent Labs 07/19 Na 132, K 5.3, Cl 97L, BUN 137, Cr 2.7, Glu 353, POC 324-394, A1C 6.2 Nutritional Hx/Data Height 5 ft 2 in Height (Calculated Centimeters) 157.5 Current Weight (lbs) 178 lb 3.2 oz Weight (Calculated Kilograms) 80.8 Weight (Calculated Grams) 08378.2 [place] Body Weight 110 % [place] Body Weight 162 Body Mass Index (BMI) 32.5 Weight Status Obese GI Symptoms GI Symptoms None Last BM none Usual diet at home Glucerna 1.5 60ml/hr x 20hr daily at SN[facility] Skin Integrity/Comment: decubitus ulceration to sacrum Estimated Nutritional Goals BEE in Kcals: Adj wt of IBW Calories/Kcals/Kg 30-35 Kcals Calculated 3060-8450 Protein: Adj wt of IBW Protein g/k.2-1.5 Protein Calculated 69-87 Fluid: ml 4034-3783 Nutritional Problem 2. Problem Problem increased nutrition needs ( calorie and protein) Etiology increased metabolic demand for healing Signs/Symptoms: sepsis 1. Problem Problem altered nutrition related lab values Etiology hx of DM, acute renal insufficiency Signs/Symptoms: BUN 137, Cr 2.7, Glu 353, POC 324-394, A1C 6.2 Malnutrition Alert Protein-Calorie Malnutrition N/A Is there a minimum of two criteria No selected? Query Text:Check all the applicable criteria. A minimum of two criteria are recommended for diagnosis of either severe or non-severe malnutrition. Intervention/Recommendation Comments 1. Monitor NPO status. 2. If enteral feeding needed, recommend to start Diabetisource AC at 30ml/hr continuous. Increased to goal rate of 60ml/hr continuous as tolerated. This will provide 1728kcal, 86g protein and 1179ml water, meeting 100% of nutritional needs. 3. Monitor wt, labs and skin integrity 4. F/U as high risk in 2-3 days, 07/21-07/22 Expected Outcomes/Goals Expected Outcomes/Goals 1. Pt to meet at least 75% of nutritional needs in 2-3 days 2. Wt stability, skin to remain intact, labs to improve .
--- NOTE | 2017-07-21 12:15 | Diagnostic Imaging Report ---
CT abdomen and pelvis without intravenous contrast Indication: Hydronephrosis Comparison: Renal ultrasound performed on 07/20/2017, Technique: Axial images were obtained from the lung bases to the bilateral proximal femurs without IV contrast. Coronal reconstructions were made. total DLP: 743, CTDI15.2 FINDINGS: Hypoventilatory and atelectatic changes of the lung bases are seen with minimal left basal consolidative changes. Evaluation of the solid organs is limited due to lack of IV contrast. There is fatty infiltration of the liver. No focal lesions identified. Mild hepatomegaly is noted. No focal splenic lesions. No focal pancreatic lesions. Pancreatic gland atrophy is noted. No focal adrenal lesions. Heavy atherosclerotic vascular disease is noted including the branches of the aorta. Bilateral renal vascular calcifications are noted. There is severe right-sided hydronephrosis. No renal stones identified. There is severe right hydroureter. No radiopaque ureteral stones identified. There is diffuse urinary bladder wall thickening with heterogeneous density seen with diffuse gas within the urinary bladder wall also noted. Ocampo catheter is also seen within the urinary bladder. Trace fluid is seen within the pelvis. Heterogeneous uterus is noted with calcifications. No evidence of bowel obstruction. There is mild distal fecal impaction. Gas-filled loops of bowel are noted. No evidence of appendicitis. A percutaneous gastric feeding tube is noted. Degenerative changes of the spine and pelvis are noted. There is evidence of previous posterior spinal fusion of L4 and L5. IMPRESSION: Severe right-sided hydronephrosis and right hydroureter. No radiopaque stone identified. Ocampo catheter within the urinary bladder with extensive gas and irregularity seen throughout the urinary bladder lumen. These findings may be due to infectious processes and possible emphysematous cystitis and possible sloughed off membranes. There is probable clot, debris and sloughed membranes within the urinary bladder lumen. Correlation needs to made with clinical findings and urologic consultation. Generalized gas-filled loops of bowel without evidence of obstruction. Mild distal fecal impaction is noted. And ileus may be considered. Heavy atherosclerotic vascular disease Hepatic steatosis with mild fatty infiltration. Left basal passive atelectasis minimal consolidation changes G-tube noted.
--- NOTE | 2017-07-21 13:47 | General Progress Note ---
Subjective - Review of Systems Service Date: 07/21/17 Subjective: awake, comfortable, on vent Objective - Results Result Diagrams: 07/21/17 04:39 07/21/17 04:39 Recent Labs: Laboratory Last Values WBC 22.2 Th/cmm (4.8-10.8) H* 07/21/17 04:39 RBC 3.29 Mil/cmm (3.80-5.10) L 07/21/17 04:39 Hgb 9.5 gm/dL (12-16) L 07/21/17 04:39 Hct 28.0 % (41.0-60) L D 07/21/17 04:39 MCV 85.1 fl (81-100) 07/21/17 04:39 MCH 28.8 pg (27.0-31.0) 07/21/17 04:39 MCHC Differential 33.8 pg (28.0-36.0) 07/21/17 04:39 RDW 13.5 % (11.5-20.0) 07/21/17 04:39 Plt Count 255 Th/cmm (150-400) 07/21/17 04:39 MPV 11.7 fl 07/21/17 04:39 Band Neutrophils % 5 % (0-10) 07/21/17 04:39 Neutrophils (Manual) 15 % (40-80) L 07/21/17 04:39 Lymphocytes 5 % (20-50) L 07/20/17 04:10 Monocytes 5 % (2-10) 07/20/17 04:10 Hypochromia 1+ 07/18/17 22:15 Platelet Estimate ADEQUATE (NORMAL) 07/21/17 04:39 Polychromasia 1+ 07/18/17 22:15 Smear Path Review YES 07/18/17 22:15 Eos Smear Source URINE 07/19/17 22:30 Eos Smear Total Cells NONE SEEN (NONE SEEN) 07/19/17 22:30 Sodium 144 mEq/L (136-145) 07/21/17 04:39 Potassium 2.0 mEq/L (3.5-5.1) L* 07/21/17 04:39 Chloride 109 mEq/L (98-107) H 07/21/17 04:39 Carbon Dioxide 22.0 mEq/L (21.0-31.0) 07/21/17 04:39 Anion Gap 15.0 (7.0-16.0) 07/21/17 04:39 BUN 98 mg/dL (7-25) H* 07/21/17 04:39 Creatinine 1.9 mg/dL (0.6-1.2) H 07/21/17 04:39 Est GFR ( Amer) 34.4 ml/min (>90) 07/21/17 04:39 Est GFR (Non-Af Amer) 28.5 ml/min 07/21/17 04:39 BUN/Creatinine Ratio 51.6 07/21/17 04:39 Glucose 433 mg/dL (70-105) H 07/21/17 04:39 POC Glucose 458 MG/DL (70 - 105) H* 07/20/17 16:32 Hemoglobin A1c % 6.2 % (4.0-6.0) H 07/18/17 23:30 Whole Bld Lactic Acid 0.61 mmol/L (0.60-1.99) 07/20/17 04:10 Uric Acid 9.5 mg/dL (2.3-6.6) H 07/20/17 04:10 Calcium 9.3 mg/dL (8.6-10.3) 07/21/17 04:39 Phosphorus 4.5 mg/dL (2.5-5.0) 07/20/17 04:10 Magnesium 2.9 mg/dL (1.9-2.7) H 07/20/17 04:10 Total Bilirubin 0.3 mg/dL (0.3-1.0) 07/20/17 04:10 AST 8 U/L (13-39) L 07/20/17 04:10 ALT 14 U/L (7-52) 07/20/17 04:10 Alkaline Phosphatase 87 U/L (34-104) 07/20/17 04:10 Ammonia 33 umol/L (16-53) 07/19/17 04:15 Creatine Kinase 26 U/L (30-223) L 07/18/17 22:15 Troponin I 0.27 ng/mL (0.01-0.05) H* 07/18/17 22:15 B-Natriuretic Peptide 1420.0 pg/mL (5.0-100.0) H 07/18/17 22:15 Total Protein 6.6 gm/dL (6.0-8.3) 07/20/17 04:10 Albumin 2.7 gm/dL (3.7-5.3) L 07/20/17 04:10 Globulin 3.9 gm/dL 07/20/17 04:10 Albumin/Globulin Ratio 0.7 (1.0-1.8) L 07/20/17 04:10 TSH 2.30 uIU/ml (0.34-5.60) 07/19/17 04:15 Urine Source [place] 07/18/17 21:30 Urine Color RED 07/18/17 21:30 Urine Clarity CLOUDY (CLEAR) H 07/18/17 21:30 Urine pH 7.5 (4.6 - 8.0) 07/18/17 21:30 Ur Specific [place] 1.025 (1.005-1.030) 07/18/17 21:30 Urine Protein >=300 mg/dL (NEGATIVE) 07/18/17 21:30 Urine Glucose (UA) NEGATIVE mg/dL (NEGATIVE) 07/18/17 21:30 Urine Ketones NEGATIVE mg/dL (NEGATIVE) 07/18/17 21:30 Urine Blood LARGE (NEGATIVE) H 07/18/17 21:30 Urine Nitrate NEGATIVE (NEGATIVE) 07/18/17 21:30 Urine Bilirubin NEGATIVE (NEGATIVE) 07/18/17 21:30 Urine Urobilinogen 0.2 E.U./dL (0.2 - 1.0) 07/18/17 21:30 Ur Leukocyte Esterase SMALL (NEGATIVE) H 07/18/17 21:30 Urine RBC 50-100 /hpf (0-5) H 07/18/17 21:30 Urine WBC 6-10 /hpf (0-5) H 07/18/17 21:30 Ur Epithelial Cells FEW /lpf (FEW) 07/18/17 21:30 Urine Bacteria MANY /hpf (NONE SEEN) 07/18/17 21:30 Ur Random Sodium 28 mmol/L 07/19/17 22:30 Urine Creatinine 26.3 mg/dl (Not Estab.) 07/19/17 22:30 Urine Microalbumin 2398.5 ug/mL (Not Estab.) 07/19/17 22:30 Random Vancomycin 22.8 ug/mL (5.0-40.0) 07/21/17 04:39 Blood Type O NEGATIVE 07/20/17 08:15 Antibody Screen NEGATIVE 07/20/17 08:15 - Physical Exam Vitals and I&O: Vital Signs Temp 98.2 F 07/21/17 12:00 Pulse 85 07/21/17 12:00 Resp 19 07/21/17 12:00 BP 171/63 07/21/17 12:00 Pulse Ox 100 07/21/17 12:00 Intake & Output 07/20/17 07/21/17 07/21/17 18:59 06:59 18:59 Intake Total 2221 648 7936 Output Total 1575 1100 0 Balance 125 -1000 1150 Weight (lbs) 80.739 kg 63.14 kg 63.14 kg Intake: Intake, IV Amount 2388 755 6382 Piperacillin Sodium/ 200 100 100 Tazobact 2.25 gm In Sodium Chloride 0.9% 100 ml @ 100 mls/hr IV Q8H [facility] Rx#:[id number] Sodium Chloride 0.9% 1, 1000 1000 000 ml @ 100 mls/hr IV . Q10H [facility] Rx#:[id number] Oral 0 Blood Product 250 Other 250 50 Output: Urine 1575 1100 Stool 0 0 Urine/Stool Mix 0 Other: # Bowel Movements 0 0 0 Active Medications: Current Medications Acetaminophen (Tylenol 650mg/20.3ml Suspension) 650 mg GT Q4H PRN PRN Reason: Pain or Fever >101 Stop: 09/16/17 23:47 Albuterol/Ipratropium (Duoneb Neb) 3 ml HHN Q6HRT [facility] Stop: 09/17/17 12:59 Last Admin: 07/21/17 07:13 Dose: 3 ml Albuterol/Ipratropium (Duoneb Neb) 3 ml HHN Q2HR PRN PRN Reason: Shortness of Breath Stop: 09/16/17 23:47 Ascorbic Acid (Vitamin C) 500 mg GT DAILY [facility] Stop: 09/17/17 08:59 Last Admin: 07/21/17 08:44 Dose: 500 mg Bisacodyl (Dulcolax 10 Mg Supp) 10 mg RC DAILY PRN PRN Reason: constip Stop: 09/16/17 23:47 Carvedilol (Coreg) 3.125 mg GT BID [facility] Stop: 09/17/17 08:59 Last Admin: 07/21/17 08:44 Dose: 3.125 mg Chlorhexidine Gluconate (Peridex) 15 ml MM 0800,1999 [facility] Stop: 09/17/17 07:59 Last Admin: 07/21/17 07:56 Dose: 15 ml Docusate Sodium (Colace) 100 mg GT BID PRN PRN Reason: Constipation Famotidine (Pepcid) 20 mg GT Q12H [facility] Stop: 09/16/17 23:44 Last Admin: 07/21/17 11:55 Dose: 20 mg Guaifenesin (Robitussin) 200 mg PO Q4HR PRN PRN Reason: Cough or Congestion Stop: 09/16/17 23:54 Heparin Sodium (Porcine) (Heparin) 5,000 units SUBQ Q12HR [facility] Stop: 09/17/17 08:59 Last Admin: 07/21/17 08:44 Dose: 5,000 units Piperacillin Sod/Tazobactam (Sod 2.25 gm/ Sodium Chloride) 100 mls @ 100 mls/ hr IV Q8H [facility] Stop: 09/17/17 08:59 Last Infusion: 07/21/17 09:44 Dose: Infused Sodium Chloride (Nacl 0.9%) 1,000 mls @ 100 mls/hr IV .Q10H [facility] Stop: 09/16/17 23:44 Last Admin: 07/21/17 07:56 Dose: 100 mls/hr Potassium Chloride 40 meq/Lidocaine HCl 25 mg/ Sodium Chloride 272.5 mls @ 68 mls/hr IV X1 ONE Stop: 07/21/17 14:28 Last Admin: 07/21/17 11:12 Dose: 68 mls/hr Vancomycin HCl 1 gm/ Sodium (Chloride) 250 mls @ 165 mls/hr IV 1600 ONE Stop: 07/21/17 17:30 Insulin Aspart (Novolog) 0 units SUBQ Q6HR [facility] PRN Reason: Protocol Stop: 09/18/17 17:59 Last Admin: 07/21/17 11:55 Dose: 9 units Insulin Detemir (Levemir Insulin) 18 units SUBQ BID [facility] PRN Reason: Protocol Stop: 09/18/17 08:59 Last Admin: 07/21/17 08:45 Dose: 18 units Lactobacillus Rhamnosus (Culturelle) 1 each PO DAILY [facility] Stop: 09/18/17 08:59 Last Admin: 07/21/17 08:44 Dose: 1 each Magnesium Hydroxide (Milk Of Magnesia) 30 ml GT HS PRN PRN Reason: Constipation Stop: 09/16/17 23:47 Metoclopramide HCl (Reglan) 5 mg GT Q8H [facility] Stop: 09/16/17 23:44 Last Admin: 07/21/17 07:56 Dose: 5 mg Miscellaneous (Vancomycin Iv Per Pharmacy) 1 ea PRN [facility] Stop: 09/16/17 23:44 Miscellaneous (Clinical Monitoring) 1 ea PRN PRN PRN Reason: RENAL DOSE ZOSYN Stop: 09/17/17 08:23 Miscellaneous (Probiotic Screen) 1 ea PRN PRN PRN Reason: PROTOCOL Stop: 09/17/17 10:14 Miscellaneous (Vte Chemical Prophylaxis Screen/ Admission) 1 ea PRN PRN PRN Reason: PROTOCOL Stop: 09/17/17 13:47 Morphine Sulfate (Morphine) 2 mg IVP Q4H PRN PRN Reason: Pain (Severe) Stop: 09/16/17 23:53 Ondansetron HCl (Zofran) 4 mg IV Q8H PRN PRN Reason: Nausea / Vomiting Stop: 09/16/17 23:54 Sodium Phosphate (Fleet Enema) 135 ml RC Q48H PRN PRN Reason: Constipation Stop: 09/16/17 23:47 Vancomycin HCl (Vancomycin Oral) 250 mg GT Q6HR [facility] Stop: 09/18/17 17:59 Last Admin: 07/21/17 11:55 Dose: 250 mg Zinc Sulfate (Zinc Sulfate) 220 mg GT DAILY [facility] Stop: 09/17/17 08:59 Last Admin: 07/21/17 08:44 Dose: 220 mg General: No acute distress HEENT: Atraumatic, Mucous membr. moist/pink Neck: Supple, +2 carotid pulse wo bruit Cardiovascular: Regular rate, Normal S1, Normal S2 Lungs: Other (coarse rhonchi) Abdomen: Soft, Distended Extremities: no Edema Neurological: Sensation intact Skin: no Rash Psych/Mental Status: Mood NL - Procedures Procedures: Procedures Procedure Code Date RESPIRATORY VENTILATION, 24-96 CONSECUTIVE HOURS [id number] 07/18/17 Assessment/Plan - Assessment Assessment: ADELA Right Hydronephrosis, hydroureter w/ partial obstruction since has good UOP, improvement Kidney fnc Gross hematuria 2nd to trauma better Sepsis 2nd to Cx UTI RFVD Anemia CD Ess Htn Type 2 DM Met Magalie thacker colitis - Plan Plan: Lab - Result Diagrams 07/20/17 04:10 07/20/17 04:10 Current Medications Acetaminophen (Tylenol 650mg/20.3ml Suspension) 650 mg GT Q4H PRN PRN Reason: Pain or Fever >101 Stop: 09/16/17 23:47 Albuterol/Ipratropium (Duoneb Neb) 3 ml HHN Q6HRT [facility] Stop: 09/17/17 12:59 Last Admin: 07/20/17 13:39 Dose: 3 ml Albuterol/Ipratropium (Duoneb Neb) 3 ml HHN Q2HR PRN PRN Reason: Shortness of Breath Stop: 09/16/17 23:47 Ascorbic Acid (Vitamin C) 500 mg GT DAILY [facility] Stop: 09/17/17 08:59 Last Admin: 07/20/17 09:07 Dose: 500 mg Bisacodyl (Dulcolax 10 Mg Supp) 10 mg RC DAILY PRN PRN Reason: constip Stop: 09/16/17 23:47 Carvedilol (Coreg) 3.125 mg GT BID [facility] Stop: 09/17/17 08:59 Last Admin: 07/20/17 16:43 Dose: 3.125 mg Chlorhexidine Gluconate (Peridex) 15 ml MM 0800,2000 [facility] Stop: 09/17/17 07:59 Last Admin: 07/20/17 07:56 Dose: 15 ml Docusate Sodium (Colace) 100 mg GT BID PRN PRN Reason: Constipation Famotidine (Pepcid) 20 mg GT Q12H [facility] Stop: 09/16/17 23:44 Last Admin: 07/20/17 11:56 Dose: 20 mg Guaifenesin (Robitussin) 200 mg PO Q4HR PRN PRN Reason: Cough or Congestion Stop: 09/16/17 23:54 Heparin Sodium (Porcine) (Heparin) 5,000 units SUBQ Q12HR [facility] Stop: 09/17/17 08:59 Last Admin: 07/20/17 09:09 Dose: 5,000 units Piperacillin Sod/Tazobactam (Sod 2.25 gm/ Sodium Chloride) 100 mls @ 100 mls/ hr IV Q8H [facility] Stop: 09/17/17 08:59 Last Admin: 07/20/17 16:43 Dose: 100 mls/hr Vancomycin HCl 1 gm/ Dextrose 250 mls @ 165 mls/hr IV Q36H [facility] Stop: 09/18/17 01:59 Last Infusion: 07/20/17 04:00 Dose: Infused Sodium Chloride (Nacl 0.9%) 1,000 mls @ 100 mls/hr IV .Q10H [facility] Stop: 09/16/17 23:44 Last Admin: 07/20/17 02:00 Dose: 100 mls/hr Insulin Aspart (Novolog) 0 units SUBQ Q6HR [facility] PRN Reason: Protocol Stop: 09/18/17 17:59 Insulin Detemir (Levemir Insulin) 18 units SUBQ BID [facility] PRN Reason: Protocol Stop: 09/18/17 08:59 Last Admin: 07/20/17 16:44 Dose: 18 units Lactobacillus Rhamnosus (Culturelle) 1 each PO DAILY [facility] Stop: 09/18/17 08:59 Last Admin: 07/20/17 09:07 Dose: 1 each Magnesium Hydroxide (Milk Of Magnesia) 30 ml GT HS PRN PRN Reason: Constipation Stop: 09/16/17 23:47 Metoclopramide HCl (Reglan) 5 mg GT Q8H [facility] Stop: 09/16/17 23:44 Last Admin: 07/20/17 15:45 Dose: Not Given Miscellaneous (Vancomycin Iv Per Pharmacy) 1 ea MC PRN [facility] Stop: 09/16/17 23:44 Miscellaneous (Clinical Monitoring) 1 ea MC PRN PRN PRN Reason: RENAL DOSE ZOSYN Stop: 09/17/17 08:23 Miscellaneous (Probiotic Screen) 1 ea MC PRN PRN PRN Reason: PROTOCOL Stop: 09/17/17 10:14 Miscellaneous (Vte Chemical Prophylaxis Screen/ Admission) 1 ea MC PRN PRN PRN Reason: PROTOCOL Stop: 09/17/17 13:47 Morphine Sulfate (Morphine) 2 mg IVP Q4H PRN PRN Reason: Pain (Severe) Stop: 09/16/17 23:53 Ondansetron HCl (Zofran) 4 mg IV Q8H PRN PRN Reason: Nausea / Vomiting Stop: 09/16/17 23:54 Sodium Phosphate (Fleet Enema) 135 ml RC Q48H PRN PRN Reason: Constipation Stop: 09/16/17 23:47 Vancomycin HCl (Vancomycin Oral) 250 mg GT Q6HR [facility] Stop: 09/18/17 17:59 Last Admin: 07/20/17 17:54 Dose: 250 mg Zinc Sulfate (Zinc Sulfate) 220 mg GT DAILY [facility] Stop: 09/17/17 08:59 Last Admin: 07/20/17 09:07 Dose: 220 mg Lab - Result Diagrams 07/21/17 04:39 07/21/17 04:39 kidney fnc gradually improving replace K add NaHC03 drop Hgb due to hematuria CT pelvis revealed right hydronephrosis/ureter f/u elelctrolytes, cbc Nutritional Asmnt/Malnutr-PDOC - Dietary Evaluation Malnutrition Findings (Please click <Entered> for more info): Nutritional Asmnt/Malnutrition Start: 07/19/17 17: 24 Text: Status: Complete Freq: Document 07/19/17 17:25 LCHENG (Rec: 07/19/17 17:43 LCHENG [id number]) Nutritional Asmnt/Malnutrition Patient General Information Nutritional Screening High Risk Consult Diagnosis Sepsis, UTI Pertinent Medical Hx/Surgical Hx HTN, DM, CAD, CHF, chronic resperatory failure, anemia, PEG/Gtube, tracheostomy Subjective Information Consult received for elevated BG. Pt seen lying in bed, on vent, non verbal comminication noted. Not able to obtain nutrition hx. Spoke with RN, no nutrition plan at this time . Current Diet Order/ Nutrition Support NPO Pertinent Medications Vitamin C, novolog, cultrelle, reglan, vancomycin, , piperacillin, Nacl 0.9%, Zinc Pertinent Labs 07/19 Na 132, K 5.3, Cl 97L, BUN 137, Cr 2.7, Glu 353, POC 324-394, A1C 6.2 Nutritional Hx/Data Height 1.57 m Height (Calculated Centimeters) 157.5 Current Weight (lbs) 80.83 kg Weight (Calculated Kilograms) 80.8 Weight (Calculated Grams) 96635.2 [place] Body Weight 110 % [place] Body Weight 162 Body Mass Index (BMI) 32.5 Weight Status Obese GI Symptoms GI Symptoms None Last BM none Usual diet at home Glucerna 1.5 60ml/hr x 20hr daily at [facility] Skin Integrity/Comment: decubitus ulceration to sacrum Estimated Nutritional Goals BEE in Kcals: Adj wt of IBW Calories/Kcals/Kg 30-35 Kcals Calculated 3443-9520 Protein: Adj wt of IBW Protein g/k.2-1.5 Protein Calculated 69-87 Fluid: ml 3544-3072 Nutritional Problem 2. Problem Problem increased nutrition needs ( calorie and protein) Etiology increased metabolic demand for healing Signs/Symptoms: sepsis 1. Problem Problem altered nutrition related lab values Etiology hx of DM, acute renal insufficiency Signs/Symptoms: BUN 137, Cr 2.7, Glu 353, POC 324-394, A1C 6.2 Malnutrition Alert Protein-Calorie Malnutrition N/A Is there a minimum of two criteria No selected? Query Text:Check all the applicable criteria. A minimum of two criteria are recommended for diagnosis of either severe or non-severe malnutrition. Intervention/Recommendation Comments 1. Monitor NPO status. 2. If enteral feeding needed, recommend to start Diabetisource AC at 30ml/hr continuous. Increased to goal rate of 60ml/hr continuous as tolerated. This will provide 1728kcal, 86g protein and 1179ml water, meeting 100% of nutritional needs. 3. Monitor wt, labs and skin integrity 4. F/U as high risk in 2-3 days, 07/21-07/22 Expected Outcomes/Goals Expected Outcomes/Goals 1. Pt to meet at least 75% of nutritional needs in 2-3 days 2. Wt stability, skin to remain intact, labs to improve .
--- NOTE | 2017-07-21 18:44 | Consultation ---
DATE OF CONSULTATION: 07/21/2017 REASON FOR CONSULTATION: Seen for hydronephrosis, urosepsis and hematuria. HISTORY OF PRESENT ILLNESS: The patient is a 62-year-old female who is a [place] [facility] [place] resident for respiratory failure and G-tube dependency on the ventilator for about a year following respiratory arrest, probably from a coronary artery event or something else, which has not been well documented. Since then, she has had multiple urinary tract infections and a Ocampo catheter placed, off and on removed mostly when she is transferred to a [place] [facility] [place] and placed when she comes to the hospital. There has not been any formal urologic evaluation for this problem, even though she has had a long history of multiple sclerosis and diabetes as well as 2 back operations, all of which could contribute to a neurogenic bladder. She was ambulatory until this event a year ago taking small steps with a walker, but now she is completely bedridden. She has not had kidney stones or urologic operations. When she is not with the Ocampo, she is incontinent in the diapers. Currently, she was admitted with sepsis, elevated lactic acid, white count of 40,000, acute renal failure and hematuria. Urine culture is pending, but blood cultures are negative. 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 PAST MEDICAL HISTORY: Positive for multiple sclerosis about 10-12 years. Longstanding diabetes. Hypertension. Dementia. COPD and respiratory failure. Congestive heart failure and coronary artery disease. ALLERGIES: None. CURRENT MEDICATIONS: Reglan, vancomycin, Zosyn, Coreg, insulin, heparin subcutaneous, and Pepcid along with vitamins and pain medications as needed. REVIEW OF SYSTEMS: She was admitted for the above-mentioned reasons of hematuria and fever. No documented seizures. No chest pain, coughing or respiratory compromise. No vomiting or diarrhea. Although, her C. diff has come back positive now. She does have some beginning of bedsore on the sacral area, but no obvious lesions so far. PHYSICAL EXAMINATION: GENERAL: She is ventilator-dependent, does not communicate, but simply stares even at a family member who happens to be her daughter at the bedside and who is extremely involved in her care. VITAL SIGNS: Blood pressure is 168/60, heart rate 89, temperature 98.2, oxygenating 100% at 35% FIO2 on the ventilator. Her T-max was 102 when she was admitted. HEAD AND NECK: Normocephalic with a tracheostomy. No jaundice. NECK: Thyroid and lymph nodes not palpable. Carotid bruit absent. CHEST: Coarse breath sounds. No deformities. No rales or rhonchi. HEART: Heart sounds normal in sinus rhythm, no murmur. ABDOMEN: Soft. G-tube present. No organomegaly, mass, or hernia. Nontender as well. Ocampo catheter in place. Urine is clear. EXTREMITIES: Legs paralyzed with flicker of movement off and on. No pedal edema, no lymphadenopathy. NEUROLOGIC: Almost complete paraplegia. LABORATORY DATA: White count 22.2, down from 40.8. Creatinine 1.9, down from 2.7, it was just 0.9 or less only few weeks ago. Potassium 2.0, down from 6.2 after Kayexalate treatment and now getting supplemental potassium. She was anemic and got 1 unit of blood transfusion with some improvement in her hemoglobin as well. Stools showed C. diff positive. Blood cultures are negative so far. Urine culture is pending. Ultrasound showed a right hydronephrosis. CT scan without contrast shows right hydronephrosis and hydroureter consistent with bladder obstruction, either neurogenic most likely or rarely organic in men. IMPRESSION: Neurogenic bladder with chronic intermittent infections due to removal of the Ocampo catheter. Hematuria is also most likely related to the infection. Hydronephrosis, unilateral or bilateral, will develop if the patient is allowed to remain in chronic retention for a long time. RECOMMENDATIONS: Keep the Ocampo catheter in for a prolonged period of time or at least such time as the patient is ambulatory and is able to walk, at which point we would check the postvoid residual to make sure she is emptying her bladder adequately without the catheter. I do not see that happening in the near future. Therefore, she should have the Ocampo catheter forever. This should be changed every 2-3 weeks and irrigated with 200 mL of normal saline every 2-3 days to prevent and minimize infections. If hematuria returns or continues, we might be able to do a cystoscopy to rule out occult bladder lesions like a tumor, although I suspect this to be highly unlikely. Multiple other medical conditions like diabetes, dementia and multiple sclerosis place her at extremely high risk for other morbidities. Ventilator dependency and G-tube feeding are risk factors as well. JOB# [id number]
[2017-07-21] MEDS: Potassium Chloride 20 mEq ER Tab PO SCH (20:16)
[2017-07-22] MEDS: Piperacillin Sodium/Tazobact 2.25 GM in Sodium Chloride 0.9% 100 ML IV SCH (00:14)
[2017-07-22] MEDS: Vancomycin HCL 250 mg /10mL UDC GT SCH ×4 (00:14→17:49)
[2017-07-22] MEDS: INSULIN ASPART, RECOMBINANT 100 UNITS/ML SUBQ SCH ×4 (00:23→18:16)
[2017-07-22] MEDS: Albuterol/Ipratropium Neb 3 ML AERS HHN SCH ×4 (01:00→19:18)
[2017-07-22] MEDS: Sodium Chloride 0.9% 1,000 ML IV SCH (03:33)
[2017-07-22 04:50] LABS: HEMOGLOBIN 9.8 gm/dL (12-16); MEAN CELL VOLUME 84.4 fl (81-100); MEAN CORPUSCULAR HEMOGLOBIN 28.4 pg (27.0-31.0); MEAN CORPUSCULAR HGB CONC 33.6 pg (28.0-36.0); MEAN PLATELET VOLUME 11.8 fl; PLATELET COUNT 263 Th/cmm (150-400); RED BLOOD COUNT 3.44 Mil/cmm (3.80-5.10); RED CELL DISTRIBUTION WIDTH 13.4 % (11.5-20.0)
[2017-07-22 05:12] LABS: MANUAL DIFF REQUIRED? YES; WHITE BLOOD COUNT 19.4 Th/cmm (4.8-10.8)
[2017-07-22 05:14] LABS: ANION GAP 13.4 (7.0-16.0); CALCIUM SERUM 9.1 mg/dL (8.6-10.3); CARBON DIOXIDE 23.6 mEq/L (21.0-31.0); CREATININE - SERUM 1.4 mg/dL (0.6-1.2); GFR NON AFRICAN-AMERICAN 40.5 ml/min; MAGNESIUM 2.1 mg/dL (1.9-2.7)
[2017-07-22 05:36] LABS: BAND NEUTROPHILE 5 % (0-10); LYMPHOCYTE 14 % (20-50); MONOCYTE 3 % (2-10); NEUTROPHILS 78 % (40-80); TOTAL CELLS COUNTED 100
[2017-07-22] MEDS: Morphine Sulfate 2 mg/mL 1mL Syr IVP PRN ×2 (05:39→11:41)
[2017-07-22] MEDS: Chlorhexidine Gluconate 0.12% 15mL Mouthwash MM SCH ×2 (08:30→20:32)
[2017-07-22] MEDS: Lactobacillus Rhamnosus 10 Billion CFU Capsule PO SCH (09:19)
[2017-07-22] MEDS: Multivitamin w/ Minerals Tab GT SCH (09:19)
[2017-07-22] MEDS: Insulin Detemir 100 units/mL 10mL Vial SUBQ SCH ×2 (09:33→18:20)
--- NOTE | 2017-07-22 13:09 | Internal Medicine Prog Note ---
Internal Medicine Subjective - Subjective Service Date: 07/22/17 Patient seen and examined:: with staff Patient is:: awake, non-verbal Per staff patient has:: tolerating meds Internal Medicine Objective - Results Result Diagrams: 07/22/17 04:09 07/22/17 04:09 Recent Labs: Laboratory Last Values WBC 19.4 Th/cmm (4.8-10.8) H 07/22/17 04:09 RBC 3.44 Mil/cmm (3.80-5.10) L 07/22/17 04:09 Hgb 9.8 gm/dL (12-16) L 07/22/17 04:09 Hct 29.0 % (41.0-60) L 07/22/17 04:09 MCV 84.4 fl (81-100) 07/22/17 04:09 MCH 28.4 pg (27.0-31.0) 07/22/17 04:09 MCHC Differential 33.6 pg (28.0-36.0) 07/22/17 04:09 RDW 13.4 % (11.5-20.0) 07/22/17 04:09 Plt Count 263 Th/cmm (150-400) 07/22/17 04:09 MPV 11.8 fl 07/22/17 04:09 Band Neutrophils % 5 % (0-10) 07/22/17 04:09 Neutrophils (Manual) 78 % (40-80) 07/22/17 04:09 Lymphocytes 14 % (20-50) L 07/22/17 04:09 Monocytes 3 % (2-10) 07/22/17 04:09 Hypochromia 1+ 07/18/17 22:15 Platelet Estimate ADEQUATE (NORMAL) 07/21/17 04:39 Polychromasia 1+ 07/18/17 22:15 Smear Path Review YES 07/18/17 22:15 Eos Smear Source URINE 07/19/17 22:30 Eos Smear Total Cells NONE SEEN (NONE SEEN) 07/19/17 22:30 Sodium 148 mEq/L (136-145) H 07/22/17 04:09 Potassium 2.0 mEq/L (3.5-5.1) L* 07/22/17 04:09 Chloride 113 mEq/L (98-107) H 07/22/17 04:09 Carbon Dioxide 23.6 mEq/L (21.0-31.0) 07/22/17 04:09 Anion Gap 13.4 (7.0-16.0) 07/22/17 04:09 BUN 80 mg/dL (7-25) H 07/22/17 04:09 Creatinine 1.4 mg/dL (0.6-1.2) H 07/22/17 04:09 Est GFR ( Amer) 49.0 ml/min (>90) 07/22/17 04:09 Est GFR (Non-Af Amer) 40.5 ml/min 07/22/17 04:09 BUN/Creatinine Ratio 57.1 07/22/17 04:09 Glucose 265 mg/dL (70-105) H D 07/22/17 04:09 POC Glucose 266 MG/DL (70 - 105) H 07/22/17 11:46 Hemoglobin A1c % 6.2 % (4.0-6.0) H 07/18/17 23:30 Plasma/Ser Osmolality 344 mOsmol/kg (280-301) H 07/19/17 23:30 Whole Bld Lactic Acid 0.61 mmol/L (0.60-1.99) 07/20/17 04:10 Uric Acid 9.5 mg/dL (2.3-6.6) H 07/20/17 04:10 Calcium 9.1 mg/dL (8.6-10.3) 07/22/17 04:09 Phosphorus 4.5 mg/dL (2.5-5.0) 07/20/17 04:10 Magnesium 2.1 mg/dL (1.9-2.7) 07/22/17 04:09 Total Bilirubin 0.3 mg/dL (0.3-1.0) 07/20/17 04:10 AST 8 U/L (13-39) L 07/20/17 04:10 ALT 14 U/L (7-52) 07/20/17 04:10 Alkaline Phosphatase 87 U/L (34-104) 07/20/17 04:10 Ammonia 33 umol/L (16-53) 07/19/17 04:15 Creatine Kinase 26 U/L (30-223) L 07/18/17 22:15 Troponin I 0.27 ng/mL (0.01-0.05) H* 07/18/17 22:15 B-Natriuretic Peptide 1420.0 pg/mL (5.0-100.0) H 07/18/17 22:15 Total Protein 6.6 gm/dL (6.0-8.3) 07/20/17 04:10 Albumin 2.7 gm/dL (3.7-5.3) L 07/20/17 04:10 Globulin 3.9 gm/dL 07/20/17 04:10 Albumin/Globulin Ratio 0.7 (1.0-1.8) L 07/20/17 04:10 TSH 2.30 uIU/ml (0.34-5.60) 07/19/17 04:15 Urine Source [place] 07/18/17 21:30 Urine Color RED 07/18/17 21:30 Urine Clarity CLOUDY (CLEAR) H 07/18/17 21:30 Urine pH 7.5 (4.6 - 8.0) 07/18/17 21:30 Ur Specific [place] 1.025 (1.005-1.030) 07/18/17 21:30 Urine Protein >=300 mg/dL (NEGATIVE) 07/18/17 21:30 Urine Glucose (UA) NEGATIVE mg/dL (NEGATIVE) 07/18/17 21:30 Urine Ketones NEGATIVE mg/dL (NEGATIVE) 07/18/17 21:30 Urine Blood LARGE (NEGATIVE) H 07/18/17 21:30 Urine Nitrate NEGATIVE (NEGATIVE) 07/18/17 21:30 Urine Bilirubin NEGATIVE (NEGATIVE) 07/18/17 21:30 Urine Urobilinogen 0.2 E.U./dL (0.2 - 1.0) 07/18/17 21:30 Ur Leukocyte Esterase SMALL (NEGATIVE) H 07/18/17 21:30 Urine RBC 50-100 /hpf (0-5) H 07/18/17 21:30 Urine WBC 6-10 /hpf (0-5) H 07/18/17 21:30 Ur Epithelial Cells FEW /lpf (FEW) 07/18/17 21:30 Urine Bacteria MANY /hpf (NONE SEEN) 07/18/17 21:30 Ur Random Sodium 28 mmol/L 07/19/17 22:30 Urine Creatinine 26.3 mg/dl (Not Estab.) 07/19/17 22:30 Urine Microalbumin 2398.5 ug/mL (Not Estab.) 07/19/17 22:30 Microalb/Creat Ratio 9119.8 07/19/17 22:30 Random Vancomycin 30.4 ug/mL (5.0-40.0) 07/22/17 08:00 Blood Type O NEGATIVE 07/20/17 08:15 Antibody Screen NEGATIVE 07/20/17 08:15 - Physical Exam Vitals and I&O: Vital Signs Temp 97.3 F 07/22/17 04:00 Pulse 76 07/22/17 12:31 Resp 17 07/22/17 12:31 BP 172/60 07/22/17 09:19 Pulse Ox 100 07/22/17 12:31 Intake & Output 07/21/17 07/22/17 07/22/17 18:59 06:59 18:59 Intake Total 3392.5 600 Output Total 1850 1450 Balance 1542.5 -850 Weight (lbs) 139 lb 145 lb Intake: Intake, IV Amount 2722.5 Piperacillin Sodium/ 200 Tazobact 2.25 gm In Sodium Chloride 0.9% 100 ml @ 100 mls/hr IV Q8H [facility] Rx#:[id number] Sodium Chloride 0.9% 1, 2000 000 ml @ 100 mls/hr IV . Q10H [facility] Rx#:[id number] Vancomycin HCl 1 gm In 250 Sodium Chloride 0.9% 250 ml @ 165 mls/hr IV 1600 [facility] Rx#:[id number] Oral 0 Tube Feeding 470 600 Other 200 Output: Urine 1850 1450 Stool 0 Other: # Bowel Movements 0 1 Active Medications: Current Medications Acetaminophen (Tylenol 650mg/20.3ml Suspension) 650 mg GT Q4H PRN PRN Reason: Pain or Fever >101 Stop: 09/16/17 23:47 Last Admin: 07/22/17 00:35 Dose: 650 mg Albuterol/Ipratropium (Duoneb Neb) 3 ml HHN Q6HRT [facility] Stop: 09/17/17 12:59 Last Admin: 07/22/17 12:31 Dose: 3 ml Albuterol/Ipratropium (Duoneb Neb) 3 ml HHN Q2HR PRN PRN Reason: Shortness of Breath Stop: 09/16/17 23:47 Ascorbic Acid (Vitamin C) 500 mg GT DAILY [facility] Stop: 09/17/17 08:59 Last Admin: 07/22/17 09:19 Dose: 500 mg Bisacodyl (Dulcolax 10 Mg Supp) 10 mg RC DAILY PRN PRN Reason: constip Stop: 09/16/17 23:47 Carvedilol (Coreg) 3.125 mg GT BID [facility] Stop: 09/17/17 08:59 Last Admin: 07/22/17 09:19 Dose: 3.125 mg Chlorhexidine Gluconate (Peridex) 15 ml MM 0800,1999 [facility] Stop: 09/17/17 07:59 Last Admin: 07/22/17 08:30 Dose: 15 ml Docusate Sodium (Colace) 100 mg GT BID PRN PRN Reason: Constipation Famotidine (Pepcid) 20 mg GT Q12H [facility] Stop: 09/16/17 23:44 Last Admin: 07/22/17 11:57 Dose: 20 mg Guaifenesin (Robitussin) 200 mg PO Q4HR PRN PRN Reason: Cough or Congestion Stop: 09/16/17 23:54 Heparin Sodium (Porcine) (Heparin) 5,000 units SUBQ Q12HR [facility] Stop: 09/17/17 08:59 Last Admin: 07/22/17 09:20 Dose: 5,000 units Piperacillin Sod/Tazobactam (Sod 2.25 gm/ Dextrose) 50 mls @ 100 mls/hr IV Q8H [facility] Stop: 09/17/17 16:59 Potassium Chloride/Dextrose/Sod Cl (D5-0.9ns W/Kcl 20meq) 1,000 mls @ 100 mls/ hr IV .Q10H [facility] Stop: 09/20/17 13:14 Potassium Chloride 40 meq/Lidocaine HCl 25 mg/ Sodium Chloride 272.5 mls @ 68 mls/hr IV X1 [facility] Stop: 07/22/17 17:02 Insulin Aspart (Novolog) 0 units SUBQ Q6HR [facility] PRN Reason: Protocol Stop: 09/18/17 17:59 Last Admin: 07/22/17 11:50 Dose: 7 units Insulin Detemir (Levemir Insulin) 24 units SUBQ BID [facility] PRN Reason: Protocol Stop: 09/20/17 08:59 Last Admin: 07/22/17 09:33 Dose: 24 units Lactobacillus Rhamnosus (Culturelle) 1 each PO DAILY [facility] Stop: 09/18/17 08:59 Last Admin: 07/22/17 09:19 Dose: 1 each Magnesium Hydroxide (Milk Of Magnesia) 30 ml GT HS PRN PRN Reason: Constipation Stop: 09/16/17 23:47 Metoclopramide HCl (Reglan) 10 mg GT Q8H [facility] Stop: 09/20/17 13:01 Miscellaneous (Vancomycin Iv Per Pharmacy) 1 ea PRN [facility] Stop: 09/16/17 23:44 Miscellaneous (Clinical Monitoring) 1 ea PRN PRN PRN Reason: RENAL DOSE ZOSYN Stop: 09/17/17 08:23 Miscellaneous (Probiotic Screen) 1 ea PRN PRN PRN Reason: PROTOCOL Stop: 09/17/17 10:14 Miscellaneous (Vte Chemical Prophylaxis Screen/ Admission) 1 ea PRN PRN PRN Reason: PROTOCOL Stop: 09/17/17 13:47 Morphine Sulfate (Morphine) 2 mg IVP Q4H PRN PRN Reason: Pain (Severe) Stop: 09/16/17 23:53 Last Admin: 07/22/17 11:41 Dose: 2 mg Ondansetron HCl (Zofran) 4 mg IV Q8H PRN PRN Reason: Nausea / Vomiting Stop: 09/16/17 23:54 Last Admin: 07/21/17 18:48 Dose: 4 mg Potassium Chloride (Klor-Con) 20 meq PO HS [facility] Stop: 09/19/17 20:59 Last Admin: 07/21/17 20:16 Dose: 20 meq Sodium Phosphate (Fleet Enema) 135 ml RC Q48H PRN PRN Reason: Constipation Stop: 09/16/17 23:47 Vancomycin HCl (Vancomycin Oral) 250 mg GT Q6HR [facility] Stop: 09/18/17 17:59 Last Admin: 07/22/17 11:57 Dose: 250 mg Zinc Sulfate (Zinc Sulfate) 220 mg GT DAILY [facility] Stop: 09/17/17 08:59 Last Admin: 07/22/17 09:19 Dose: 220 mg General: weak, obtunded HEENT: NC/AT, PERRLA Neck: Supple Lungs: ronchi Cardiovascular: RRR, without murmur Abdomen: soft, non-tender, non-distended, +GT, positive bowel sound Extremities: excoriation Neurological: bedbound - Procedures Procedures: Procedures Procedure Code Date RESPIRATORY VENTILATION, 24-96 CONSECUTIVE HOURS [id number] 07/18/17 Internal Medicine Assmt/Plan - Assessment Assessment: sepsis chronic respiratory failure VDRF leukocytosis hematuria htn dm2 cad chf anemia tracheostomy status hypokalemia acute renal insufficiency elevated troponin mild protein calorie malnutrition acute uti - Plan Plan: continue with ivabx renal follow up monitor h/h follow up labs in am vent support continue current plan of care Nutritional Asmnt/Malnutr-PDOC - Dietary Evaluation Malnutrition Findings (Please click <Entered> for more info): Nutritional Asmnt/Malnutrition Start: 07/19/17 17: 24 Text: Status: Complete Freq: Document 07/19/17 17:25 LCHENG (Rec: 07/19/17 17:43 LCJOSE DE JESUSG [email or web address]) Nutritional Asmnt/Malnutrition Patient General Information Nutritional Screening High Risk Consult Diagnosis Sepsis, UTI Pertinent Medical Hx/Surgical Hx HTN, DM, CAD, CHF, chronic resperatory failure, anemia, PEG/Gtube, tracheostomy Subjective Information Consult received for elevated BG. Pt seen lying in bed, on vent, non verbal comminication noted. Not able to obtain nutrition hx. Spoke with RN, no nutrition plan at this time . Current Diet Order/ Nutrition Support NPO Pertinent Medications Vitamin C, novolog, cultrelle, reglan, vancomycin, , piperacillin, Nacl 0.9%, Zinc Pertinent Labs 07/19 Na 132, K 5.3, Cl 97L, BUN 137, Cr 2.7, Glu 353, POC 324-394, A1C 6.2 Nutritional Hx/Data Height 5 ft 2 in Height (Calculated Centimeters) 157.5 Current Weight (lbs) 178 lb 3.2 oz Weight (Calculated Kilograms) 80.8 Weight (Calculated Grams) 08331.2 [place] Body Weight 110 % [place] Body Weight 162 Body Mass Index (BMI) 32.5 Weight Status Obese GI Symptoms GI Symptoms None Last BM none Usual diet at home Glucerna 1.5 60ml/hr x 20hr daily at SN[facility] Skin Integrity/Comment: decubitus ulceration to sacrum Estimated Nutritional Goals BEE in Kcals: Adj wt of IBW Calories/Kcals/Kg 30-35 Kcals Calculated 4235-1283 Protein: Adj wt of IBW Protein g/k.2-1.5 Protein Calculated 69-87 Fluid: ml 8525-6846 Nutritional Problem 2. Problem Problem increased nutrition needs ( calorie and protein) Etiology increased metabolic demand for healing Signs/Symptoms: sepsis 1. Problem Problem altered nutrition related lab values Etiology hx of DM, acute renal insufficiency Signs/Symptoms: BUN 137, Cr 2.7, Glu 353, POC 324-394, A1C 6.2 Malnutrition Alert Protein-Calorie Malnutrition N/A Is there a minimum of two criteria No selected? Query Text:Check all the applicable criteria. A minimum of two criteria are recommended for diagnosis of either severe or non-severe malnutrition. Intervention/Recommendation Comments 1. Monitor NPO status. 2. If enteral feeding needed, recommend to start Diabetisource AC at 30ml/hr continuous. Increased to goal rate of 60ml/hr continuous as tolerated. This will provide 1728kcal, 86g protein and 1179ml water, meeting 100% of nutritional needs. 3. Monitor wt, labs and skin integrity 4. F/U as high risk in 2-3 days, 07/21-07/22 Expected Outcomes/Goals Expected Outcomes/Goals 1. Pt to meet at least 75% of nutritional needs in 2-3 days 2. Wt stability, skin to remain intact, labs to improve .
[2017-07-22] MEDS ORDERED: D5-0.9NS w/KCL 20mEq 1,000 ML IV SCH (13:15)
[2017-07-22] MEDS ORDERED: LIDOCAINE IV ONE (14:30)
[2017-07-22] MEDS ORDERED: SODIUM CHLORIDE 0.9% IV ONE (14:30)
[2017-07-22] MEDS ORDERED: POTASSIUM CHLORIDE IV ONE (14:30)
--- NOTE | 2017-07-22 14:56 | General Progress Note ---
Subjective - Review of Systems Service Date: 07/22/17 Subjective: awake, comfortable, on vent Objective - Results Result Diagrams: 07/22/17 04:09 07/22/17 04:09 Recent Labs: Laboratory Last Values WBC 19.4 Th/cmm (4.8-10.8) H 07/22/17 04:09 RBC 3.44 Mil/cmm (3.80-5.10) L 07/22/17 04:09 Hgb 9.8 gm/dL (12-16) L 07/22/17 04:09 Hct 29.0 % (41.0-60) L 07/22/17 04:09 MCV 84.4 fl (81-100) 07/22/17 04:09 MCH 28.4 pg (27.0-31.0) 07/22/17 04:09 MCHC Differential 33.6 pg (28.0-36.0) 07/22/17 04:09 RDW 13.4 % (11.5-20.0) 07/22/17 04:09 Plt Count 263 Th/cmm (150-400) 07/22/17 04:09 MPV 11.8 fl 07/22/17 04:09 Band Neutrophils % 5 % (0-10) 07/22/17 04:09 Neutrophils (Manual) 78 % (40-80) 07/22/17 04:09 Lymphocytes 14 % (20-50) L 07/22/17 04:09 Monocytes 3 % (2-10) 07/22/17 04:09 Hypochromia 1+ 07/18/17 22:15 Platelet Estimate ADEQUATE (NORMAL) 07/21/17 04:39 Polychromasia 1+ 07/18/17 22:15 Smear Path Review YES 07/18/17 22:15 Eos Smear Source URINE 07/19/17 22:30 Eos Smear Total Cells NONE SEEN (NONE SEEN) 07/19/17 22:30 Sodium 148 mEq/L (136-145) H 07/22/17 04:09 Potassium 2.0 mEq/L (3.5-5.1) L* 07/22/17 04:09 Chloride 113 mEq/L (98-107) H 07/22/17 04:09 Carbon Dioxide 23.6 mEq/L (21.0-31.0) 07/22/17 04:09 Anion Gap 13.4 (7.0-16.0) 07/22/17 04:09 BUN 80 mg/dL (7-25) H 07/22/17 04:09 Creatinine 1.4 mg/dL (0.6-1.2) H 07/22/17 04:09 Est GFR ( Amer) 49.0 ml/min (>90) 07/22/17 04:09 Est GFR (Non-Af Amer) 40.5 ml/min 07/22/17 04:09 BUN/Creatinine Ratio 57.1 07/22/17 04:09 Glucose 265 mg/dL (70-105) H D 07/22/17 04:09 POC Glucose 216 MG/DL (70 - 105) H 07/22/17 14:38 Hemoglobin A1c % 6.2 % (4.0-6.0) H 07/18/17 23:30 Plasma/Ser Osmolality 344 mOsmol/kg (280-301) H 07/19/17 23:30 Whole Bld Lactic Acid 0.61 mmol/L (0.60-1.99) 07/20/17 04:10 Uric Acid 9.5 mg/dL (2.3-6.6) H 07/20/17 04:10 Calcium 9.1 mg/dL (8.6-10.3) 07/22/17 04:09 Phosphorus 4.5 mg/dL (2.5-5.0) 07/20/17 04:10 Magnesium 2.1 mg/dL (1.9-2.7) 07/22/17 04:09 Total Bilirubin 0.3 mg/dL (0.3-1.0) 07/20/17 04:10 AST 8 U/L (13-39) L 07/20/17 04:10 ALT 14 U/L (7-52) 07/20/17 04:10 Alkaline Phosphatase 87 U/L (34-104) 07/20/17 04:10 Ammonia 33 umol/L (16-53) 07/19/17 04:15 Creatine Kinase 26 U/L (30-223) L 07/18/17 22:15 Troponin I 0.27 ng/mL (0.01-0.05) H* 07/18/17 22:15 B-Natriuretic Peptide 1420.0 pg/mL (5.0-100.0) H 07/18/17 22:15 Total Protein 6.6 gm/dL (6.0-8.3) 07/20/17 04:10 Albumin 2.7 gm/dL (3.7-5.3) L 07/20/17 04:10 Globulin 3.9 gm/dL 07/20/17 04:10 Albumin/Globulin Ratio 0.7 (1.0-1.8) L 07/20/17 04:10 TSH 2.30 uIU/ml (0.34-5.60) 07/19/17 04:15 Urine Source [place] 07/18/17 21:30 Urine Color RED 07/18/17 21:30 Urine Clarity CLOUDY (CLEAR) H 07/18/17 21:30 Urine pH 7.5 (4.6 - 8.0) 07/18/17 21:30 Ur Specific [place] 1.025 (1.005-1.030) 07/18/17 21:30 Urine Protein >=300 mg/dL (NEGATIVE) 07/18/17 21:30 Urine Glucose (UA) NEGATIVE mg/dL (NEGATIVE) 07/18/17 21:30 Urine Ketones NEGATIVE mg/dL (NEGATIVE) 07/18/17 21:30 Urine Blood LARGE (NEGATIVE) H 07/18/17 21:30 Urine Nitrate NEGATIVE (NEGATIVE) 07/18/17 21:30 Urine Bilirubin NEGATIVE (NEGATIVE) 07/18/17 21:30 Urine Urobilinogen 0.2 E.U./dL (0.2 - 1.0) 07/18/17 21:30 Ur Leukocyte Esterase SMALL (NEGATIVE) H 07/18/17 21:30 Urine RBC 50-100 /hpf (0-5) H 07/18/17 21:30 Urine WBC 6-10 /hpf (0-5) H 07/18/17 21:30 Ur Epithelial Cells FEW /lpf (FEW) 07/18/17 21:30 Urine Bacteria MANY /hpf (NONE SEEN) 07/18/17 21:30 Ur Random Sodium 28 mmol/L 07/19/17 22:30 Urine Creatinine 26.3 mg/dl (Not Estab.) 07/19/17 22:30 Urine Microalbumin 2398.5 ug/mL (Not Estab.) 07/19/17 22:30 Microalb/Creat Ratio 9119.8 07/19/17 22:30 Random Vancomycin 30.4 ug/mL (5.0-40.0) 07/22/17 08:00 Blood Type O NEGATIVE 07/20/17 08:15 Antibody Screen NEGATIVE 07/20/17 08:15 - Physical Exam Vitals and I&O: Vital Signs Temp 97.3 F 07/22/17 04:00 Pulse 76 07/22/17 12:31 Resp 17 07/22/17 12:31 BP 172/60 07/22/17 09:19 Pulse Ox 100 07/22/17 12:31 Intake & Output 07/21/17 07/22/17 07/22/17 18:59 06:59 18:59 Intake Total 3392.5 600 Output Total 1850 1450 Balance 1542.5 -850 Weight (lbs) 63.049 kg 65.771 kg Intake: Intake, IV Amount 2722.5 Piperacillin Sodium/ 200 Tazobact 2.25 gm In Sodium Chloride 0.9% 100 ml @ 100 mls/hr IV Q8H [facility] Rx#:[id number] Sodium Chloride 0.9% 1, 2000 000 ml @ 100 mls/hr IV . Q10H [facility] Rx#:[id number] Vancomycin HCl 1 gm In 250 Sodium Chloride 0.9% 250 ml @ 165 mls/hr IV 1600 ONE Rx#:[id number] Oral 0 Tube Feeding 470 600 Other 200 Output: Urine 1850 1450 Stool 0 Other: # Bowel Movements 0 1 Active Medications: Current Medications Acetaminophen (Tylenol 650mg/20.3ml Suspension) 650 mg GT Q4H PRN PRN Reason: Pain or Fever >101 Stop: 09/16/17 23:47 Last Admin: 07/22/17 00:35 Dose: 650 mg Albuterol/Ipratropium (Duoneb Neb) 3 ml HHN Q6HRT [facility] Stop: 09/17/17 12:59 Last Admin: 07/22/17 12:31 Dose: 3 ml Albuterol/Ipratropium (Duoneb Neb) 3 ml HHN Q2HR PRN PRN Reason: Shortness of Breath Stop: 09/16/17 23:47 Ascorbic Acid (Vitamin C) 500 mg GT DAILY [facility] Stop: 09/17/17 08:59 Last Admin: 07/22/17 09:19 Dose: 500 mg Bisacodyl (Dulcolax 10 Mg Supp) 10 mg RC DAILY PRN PRN Reason: constip Stop: 09/16/17 23:47 Carvedilol (Coreg) 3.125 mg GT BID [facility] Stop: 09/17/17 08:59 Last Admin: 07/22/17 09:19 Dose: 3.125 mg Chlorhexidine Gluconate (Peridex) 15 ml MM 08,1999 [facility] Stop: 09/17/17 07:59 Last Admin: 07/22/17 08:30 Dose: 15 ml Docusate Sodium (Colace) 100 mg GT BID PRN PRN Reason: Constipation Famotidine (Pepcid) 20 mg GT Q12H [facility] Stop: 09/16/17 23:44 Last Admin: 07/22/17 11:57 Dose: 20 mg Guaifenesin (Robitussin) 200 mg PO Q4HR PRN PRN Reason: Cough or Congestion Stop: 09/16/17 23:54 Heparin Sodium (Porcine) (Heparin) 5,000 units SUBQ Q12HR [facility] Stop: 09/17/17 08:59 Last Admin: 07/22/17 09:20 Dose: 5,000 units Piperacillin Sod/Tazobactam (Sod 2.25 gm/ Dextrose) 50 mls @ 100 mls/hr IV Q8H [facility] Stop: 09/17/17 16:59 Potassium Chloride/Dextrose/Sod Cl (D5-0.9ns W/Kcl 20meq) 1,000 mls @ 100 mls/ hr IV .Q10H [facility] Stop: 09/20/17 13:14 Last Admin: 07/22/17 14:30 Dose: 100 mls/hr Potassium Chloride 40 meq/Lidocaine HCl 25 mg/ Sodium Chloride 522.5 mls @ 130 mls/hr IV X1 ONE Stop: 07/22/17 18:31 Insulin Aspart (Novolog) 0 units SUBQ Q6HR [facility] PRN Reason: Protocol Stop: 09/18/17 17:59 Last Admin: 07/22/17 11:50 Dose: 7 units Insulin Detemir (Levemir Insulin) 24 units SUBQ BID [facility] PRN Reason: Protocol Stop: 09/20/17 08:59 Last Admin: 07/22/17 09:33 Dose: 24 units Lactobacillus Rhamnosus (Culturelle) 1 each PO DAILY [facility] Stop: 09/18/17 08:59 Last Admin: 07/22/17 09:19 Dose: 1 each Magnesium Hydroxide (Milk Of Magnesia) 30 ml GT HS PRN PRN Reason: Constipation Stop: 09/16/17 23:47 Metoclopramide HCl (Reglan) 10 mg GT Q8H [facility] Stop: 09/20/17 13:01 Miscellaneous (Vancomycin Iv Per Pharmacy) 1 ea PRN [facility] Stop: 09/16/17 23:44 Miscellaneous (Clinical Monitoring) 1 ea PRN PRN PRN Reason: RENAL DOSE ZOSYN Stop: 09/17/17 08:23 Miscellaneous (Probiotic Screen) 1 ea PRN PRN PRN Reason: PROTOCOL Stop: 09/17/17 10:14 Miscellaneous (Vte Chemical Prophylaxis Screen/ Admission) 1 ea PRN PRN PRN Reason: PROTOCOL Stop: 09/17/17 13:47 Morphine Sulfate (Morphine) 2 mg IVP Q4H PRN PRN Reason: Pain (Severe) Stop: 09/16/17 23:53 Last Admin: 07/22/17 11:41 Dose: 2 mg Ondansetron HCl (Zofran) 4 mg IV Q8H PRN PRN Reason: Nausea / Vomiting Stop: 09/16/17 23:54 Last Admin: 07/21/17 18:48 Dose: 4 mg Potassium Chloride (Klor-Con) 20 meq PO HS [facility] Stop: 09/19/17 20:59 Last Admin: 07/21/17 20:16 Dose: 20 meq Sodium Phosphate (Fleet Enema) 135 ml RC Q48H PRN PRN Reason: Constipation Stop: 09/16/17 23:47 Vancomycin HCl (Vancomycin Oral) 250 mg GT Q6HR [facility] Stop: 09/18/17 17:59 Last Admin: 07/22/17 11:57 Dose: 250 mg Zinc Sulfate (Zinc Sulfate) 220 mg GT DAILY [facility] Stop: 09/17/17 08:59 Last Admin: 07/22/17 09:19 Dose: 220 mg General: No acute distress HEENT: Atraumatic, Mucous membr. moist/pink Neck: Supple, +2 carotid pulse wo bruit Cardiovascular: Regular rate, Normal S1, Normal S2 Lungs: Other (coarse rhonchi) Abdomen: Soft, Distended Extremities: no Edema Neurological: Sensation intact Skin: no Rash Psych/Mental Status: Mood NL - Procedures Procedures: Procedures Procedure Code Date RESPIRATORY VENTILATION, 24-96 CONSECUTIVE HOURS [id number] 07/18/17 Assessment/Plan - Assessment Assessment: ADELA Right Hydronephrosis, hydroureter w/ partial obstruction since has good UOP, improvement Kidney fnc Gross hematuria 2nd to trauma better Sepsis 2nd to Cx UTI RFVD Anemia CD Ess Htn Type 2 DM Met Enceph C. diff colitis Hypokalemia Hypernatremia - Plan Plan: Lab - Result Diagrams 07/20/17 04:10 07/20/17 04:10 Current Medications Acetaminophen (Tylenol 650mg/20.3ml Suspension) 650 mg GT Q4H PRN PRN Reason: Pain or Fever >101 Stop: 09/16/17 23:47 Albuterol/Ipratropium (Duoneb Neb) 3 ml HHN Q6HRT [facility] Stop: 09/17/17 12:59 Last Admin: 07/20/17 13:39 Dose: 3 ml Albuterol/Ipratropium (Duoneb Neb) 3 ml HHN Q2HR PRN PRN Reason: Shortness of Breath Stop: 09/16/17 23:47 Ascorbic Acid (Vitamin C) 500 mg GT DAILY [facility] Stop: 09/17/17 08:59 Last Admin: 07/20/17 09:07 Dose: 500 mg Bisacodyl (Dulcolax 10 Mg Supp) 10 mg RC DAILY PRN PRN Reason: constip Stop: 09/16/17 23:47 Carvedilol (Coreg) 3.125 mg GT BID [facility] Stop: 09/17/17 08:59 Last Admin: 07/20/17 16:43 Dose: 3.125 mg Chlorhexidine Gluconate (Peridex) 15 ml MM 0800,2000 [facility] Stop: 09/17/17 07:59 Last Admin: 07/20/17 07:56 Dose: 15 ml Docusate Sodium (Colace) 100 mg GT BID PRN PRN Reason: Constipation Famotidine (Pepcid) 20 mg GT Q12H [facility] Stop: 09/16/17 23:44 Last Admin: 07/20/17 11:56 Dose: 20 mg Guaifenesin (Robitussin) 200 mg PO Q4HR PRN PRN Reason: Cough or Congestion Stop: 09/16/17 23:54 Heparin Sodium (Porcine) (Heparin) 5,000 units SUBQ Q12HR [facility] Stop: 09/17/17 08:59 Last Admin: 07/20/17 09:09 Dose: 5,000 units Piperacillin Sod/Tazobactam (Sod 2.25 gm/ Sodium Chloride) 100 mls @ 100 mls/ hr IV Q8H [facility] Stop: 09/17/17 08:59 Last Admin: 07/20/17 16:43 Dose: 100 mls/hr Vancomycin HCl 1 gm/ Dextrose 250 mls @ 165 mls/hr IV Q36H [facility] Stop: 09/18/17 01:59 Last Infusion: 07/20/17 04:00 Dose: Infused Sodium Chloride (Nacl 0.9%) 1,000 mls @ 100 mls/hr IV .Q10H [facility] Stop: 09/16/17 23:44 Last Admin: 07/20/17 02:00 Dose: 100 mls/hr Insulin Aspart (Novolog) 0 units SUBQ Q6HR [facility] PRN Reason: Protocol Stop: 09/18/17 17:59 Insulin Detemir (Levemir Insulin) 18 units SUBQ BID [facility] PRN Reason: Protocol Stop: 09/18/17 08:59 Last Admin: 07/20/17 16:44 Dose: 18 units Lactobacillus Rhamnosus (Culturelle) 1 each PO DAILY [facility] Stop: 09/18/17 08:59 Last Admin: 07/20/17 09:07 Dose: 1 each Magnesium Hydroxide (Milk Of Magnesia) 30 ml GT HS PRN PRN Reason: Constipation Stop: 09/16/17 23:47 Metoclopramide HCl (Reglan) 5 mg GT Q8H [facility] Stop: 09/16/17 23:44 Last Admin: 07/20/17 15:45 Dose: Not Given Miscellaneous (Vancomycin Iv Per Pharmacy) 1 ea MC PRN [facility] Stop: 09/16/17 23:44 Miscellaneous (Clinical Monitoring) 1 ea MC PRN PRN PRN Reason: RENAL DOSE ZOSYN Stop: 09/17/17 08:23 Miscellaneous (Probiotic Screen) 1 ea PRN PRN PRN Reason: PROTOCOL Stop: 09/17/17 10:14 Miscellaneous (Vte Chemical Prophylaxis Screen/ Admission) 1 ea MC PRN PRN PRN Reason: PROTOCOL Stop: 09/17/17 13:47 Morphine Sulfate (Morphine) 2 mg IVP Q4H PRN PRN Reason: Pain (Severe) Stop: 09/16/17 23:53 Ondansetron HCl (Zofran) 4 mg IV Q8H PRN PRN Reason: Nausea / Vomiting Stop: 09/16/17 23:54 Sodium Phosphate (Fleet Enema) 135 ml RC Q48H PRN PRN Reason: Constipation Stop: 09/16/17 23:47 Vancomycin HCl (Vancomycin Oral) 250 mg GT Q6HR [facility] Stop: 09/18/17 17:59 Last Admin: 07/20/17 17:54 Dose: 250 mg Zinc Sulfate (Zinc Sulfate) 220 mg GT DAILY [facility] Stop: 09/17/17 08:59 Last Admin: 07/20/17 09:07 Dose: 220 mg Lab - Result Diagrams 07/22/17 04:09 07/22/17 04:09 kidney fnc gradually improving replace K add NaHC03 drop Hgb due to hematuria CT pelvis revealed right hydronephrosis/ureter f/u elelctrolytes, cbc Nutritional Asmnt/Malnutr-PDOC - Dietary Evaluation Malnutrition Findings (Please click <Entered> for more info): Nutritional Asmnt/Malnutrition Start: 07/19/17 17: 24 Text: Status: Complete Freq: Document 07/19/17 17:25 LCHENG (Rec: 07/19/17 17:43 LCHENG [id number]) Nutritional Asmnt/Malnutrition Patient General Information Nutritional Screening High Risk Consult Diagnosis Sepsis, UTI Pertinent Medical Hx/Surgical Hx HTN, DM, CAD, CHF, chronic resperatory failure, anemia, PEG/Gtube, tracheostomy Subjective Information Consult received for elevated BG. Pt seen lying in bed, on vent, non verbal comminication noted. Not able to obtain nutrition hx. Spoke with RN, no nutrition plan at this time . Current Diet Order/ Nutrition Support NPO Pertinent Medications Vitamin C, novolog, cultrelle, reglan, vancomycin, , piperacillin, Nacl 0.9%, Zinc Pertinent Labs 07/19 Na 132, K 5.3, Cl 97L, BUN 137, Cr 2.7, Glu 353, POC 324-394, A1C 6.2 Nutritional Hx/Data Height 1.57 m Height (Calculated Centimeters) 157.5 Current Weight (lbs) 80.83 kg Weight (Calculated Kilograms) 80.8 Weight (Calculated Grams) 39667.2 [place] Body Weight 110 % [place] Body Weight 162 Body Mass Index (BMI) 32.5 Weight Status Obese GI Symptoms GI Symptoms None Last BM none Usual diet at home Glucerna 1.5 60ml/hr x 20hr daily at [facility] Skin Integrity/Comment: decubitus ulceration to sacrum Estimated Nutritional Goals BEE in Kcals: Adj wt of IBW Calories/Kcals/Kg 30-35 Kcals Calculated Protein: Adj wt of IBW Protein g/k.2-1.5 Protein Calculated 6987 Fluid: ml Nutritional Problem 2. Problem Problem increased nutrition needs ( calorie and protein) Etiology increased metabolic demand for healing Signs/Symptoms: sepsis 1. Problem Problem altered nutrition related lab values Etiology hx of DM, acute renal insufficiency Signs/Symptoms: BUN 137, Cr 2.7, Glu 353, POC 324-394, A1C 6.2 Malnutrition Alert Protein-Calorie Malnutrition N/A Is there a minimum of two criteria No selected? Query Text:Check all the applicable criteria. A minimum of two criteria are recommended for diagnosis of either severe or non-severe malnutrition. Intervention/Recommendation Comments 1. Monitor NPO status. 2. If enteral feeding needed, recommend to start Diabetisource AC at 30ml/hr continuous. Increased to goal rate of 60ml/hr continuous as tolerated. This will provide 1728kcal, 86g protein and 1179ml water, meeting 100% of nutritional needs. 3. Monitor wt, labs and skin integrity 4. F/U as high risk in 2-3 days, 07/21-07/22 Expected Outcomes/Goals Expected Outcomes/Goals 1. Pt to meet at least 75% of nutritional needs in 2-3 days 2. Wt stability, skin to remain intact, labs to improve .
[2017-07-22] MEDS: 0.45% NS w/20 mEq KCl 1,000 ML IV SCH (18:25)
[2017-07-22] MEDS: Potassium Chloride 20 mEq ER Tab PO SCH (20:35)
--- NOTE | 2017-07-22 22:10 | Progress Notes ---
DATE: 07/22/2017 UROLOGY PROGRESS NOTE SUBJECTIVE: The patient remains in the ICU, stable, tolerating G-tube feeding and urine output improving with clear urine. Ocampo is being irrigated without any problems. OBJECTIVE: VITAL SIGNS: On exam, she remains afebrile, blood pressure systolic around 115, maintained without vasopressors. Vital signs stable as she is hemodynamically. MENTAL STATUS: No change with dementia and a post-stroke status. ABDOMEN: Remains soft, nondistended and nontender. EXTREMITIES: 1+ edema. CARDIOVASCULAR: Heart sound in sinus rhythm. No murmur. LABORATORY DATA: White count down to 19,000. Creatinine improved to 1.4. IMPRESSION: 1. History of hydronephrosis should be improving with the Ocampo catheter. 2. Neurogenic bladder, multiple etiologies, will require long-term Ocampo and Ocampo catheter care. 3. Profound dementia, no change. 4. Status post stroke, stable. 5. Multiple sclerosis, no change. [facility]# [id number]
[2017-07-23] MEDS: INSULIN ASPART, RECOMBINANT 100 UNITS/ML SUBQ SCH ×4 (00:13→17:59)
[2017-07-23] MEDS: Vancomycin HCL 250 mg /10mL UDC GT SCH ×4 (00:19→17:45)
[2017-07-23] MEDS: Albuterol/Ipratropium Neb 3 ML AERS HHN SCH ×4 (00:48→19:15)
[2017-07-23 06:42] LABS: ANION GAP 12.8 (7.0-16.0); BUN - UREA NITROGEN 63 mg/dL (7-25); CALCIUM SERUM 8.6 mg/dL (8.6-10.3); CARBON DIOXIDE 25.8 mEq/L (21.0-31.0); CHLORIDE 115 mEq/L (98-107); CREATININE - SERUM 1.1 mg/dL (0.6-1.2); GFR AFRICAN-AMERICAN > 60.0 ml/min (>90); GFR NON AFRICAN-AMERICAN 53.5 ml/min; GLUCOSE 194 mg/dL (70-105); MAGNESIUM 1.8 mg/dL (1.9-2.7); SODIUM SERUM 151 mEq/L (136-145)
[2017-07-23 07:06] LABS: EOSINOPHILE ABSOLUTE 0.2 Th/cmm (0.1-0.4); HEMATOCRIT 34.9 % (41.0-60); HEMOGLOBIN 11.3 gm/dL (12-16); LYMPHOCYTE ABSOLUTE 3.3 Th/cmm (1.5-3.0); MANUAL DIFF REQUIRED? YES; MEAN CELL VOLUME 84.5 fl (81-100); MEAN CORPUSCULAR HEMOGLOBIN 27.4 pg (27.0-31.0); MEAN CORPUSCULAR HGB CONC 32.4 pg (28.0-36.0); MEAN PLATELET VOLUME 12.3 fl; MONOCYTE ABSOLUTE 1.1 Th/cmm (0.3-1.0); NEUTROPHILE ABSOLUTE 17.7 Th/cmm (1.8-8.0); PLATELET COUNT 234 Th/cmm (150-400); RED BLOOD COUNT 4.13 Mil/cmm (3.80-5.10); RED CELL DISTRIBUTION WIDTH 13.4 % (11.5-20.0)
[2017-07-23 07:07] LABS: WHITE BLOOD COUNT 22.3 Th/cmm (4.8-10.8)
[2017-07-23 07:32] LABS: POTASSIUM SERUM 2.6 mEq/L (3.5-5.1)
[2017-07-23] MEDS: 0.45% NS w/20 mEq KCl 1,000 ML IV SCH (07:40)
[2017-07-23 07:53] LABS: BAND NEUTROPHILE 3 % (0-10); EOSINOPHIL 1 % (0-5); LYMPHOCYTE 14 % (20-50); MONOCYTE 9 % (2-10); NEUTROPHILS 73 % (40-80); PLATELET ESTIMATE ADEQUATE (NORMAL); TOTAL CELLS COUNTED 100
[2017-07-23] MEDS: Chlorhexidine Gluconate 0.12% 15mL Mouthwash MM SCH ×2 (08:51→20:00)
[2017-07-23] MEDS: Multivitamin w/ Minerals Tab GT SCH (09:07)
[2017-07-23] MEDS: Lactobacillus Rhamnosus 10 Billion CFU Capsule PO SCH (09:07)
[2017-07-23] MEDS: Piperacillin Sodium/Tazobact 2.25 GM in Sodium Chloride 0.9% 100 ML IV SCH (09:08)
[2017-07-23] MEDS ORDERED: Potassium Chloride 40 MEQ, Lidocaine 1% 20mL Vial 25 MG in Sodium Chloride 0.9% 250 ML IV ONE ×2 (09:32→20:49)
[2017-07-23] MEDS ORDERED: Mag Sulfate 2gm/50mL Premix 2 GM/50 ML BAG IV ONE (09:33)
[2017-07-23] MEDS ORDERED: Potassium Chloride Elixir 20 mEq /15 mL UDC ONE (10:17)
[2017-07-23] MEDS: Potassium Chloride Elixir 20 mEq /15 mL UDC GT SCH ×2 (10:24→17:22)
[2017-07-23] MEDS: Insulin Detemir 100 units/mL 10mL Vial SUBQ SCH ×2 (10:28→19:25)
--- NOTE | 2017-07-23 12:11 | Internal Medicine Prog Note ---
Internal Medicine Subjective - Subjective Service Date: 07/23/17 (vomited x1, son at bedside explained current diagnosis and plan of care understood and verbalized) Patient is:: awake, non-verbal Per staff patient has:: tolerating meds Internal Medicine Objective - Results Result Diagrams: 07/23/17 04:33 07/23/17 04:33 Recent Labs: Laboratory Last Values WBC 22.3 Th/cmm (4.8-10.8) H* 07/23/17 04:33 RBC 4.13 Mil/cmm (3.80-5.10) 07/23/17 04:33 Hgb 11.3 gm/dL (12-16) L 07/23/17 04:33 Hct 34.9 % (41.0-60) L D 07/23/17 04:33 MCV 84.5 fl (81-100) 07/23/17 04:33 MCH 27.4 pg (27.0-31.0) 07/23/17 04:33 MCHC Differential 32.4 pg (28.0-36.0) 07/23/17 04:33 RDW 13.4 % (11.5-20.0) 07/23/17 04:33 Plt Count 234 Th/cmm (150-400) 07/23/17 04:33 MPV 12.3 fl 07/23/17 04:33 Band Neutrophils % 3 % (0-10) 07/23/17 04:33 Neutrophils (Manual) 73 % (40-80) 07/23/17 04:33 Lymphocytes 14 % (20-50) L 07/23/17 04:33 Monocytes 9 % (2-10) 07/23/17 04:33 Eosinophils 1 % (0-5) 07/23/17 04:33 Hypochromia 1+ 07/18/17 22:15 Platelet Estimate ADEQUATE (NORMAL) 07/23/17 04:33 Polychromasia 1+ 07/18/17 22:15 Smear Path Review YES 07/18/17 22:15 Eos Smear Source URINE 07/19/17 22:30 Eos Smear Total Cells NONE SEEN (NONE SEEN) 07/19/17 22:30 Sodium 151 mEq/L (136-145) H 07/23/17 04:33 Potassium 2.6 mEq/L (3.5-5.1) L* 07/23/17 04:33 Chloride 115 mEq/L (98-107) H 07/23/17 04:33 Carbon Dioxide 25.8 mEq/L (21.0-31.0) 07/23/17 04:33 Anion Gap 12.8 (7.0-16.0) 07/23/17 04:33 BUN 63 mg/dL (7-25) H 07/23/17 04:33 Creatinine 1.1 mg/dL (0.6-1.2) 07/23/17 04:33 Est GFR ( Amer) > 60.0 ml/min (>90) 07/23/17 04:33 Est GFR (Non-Af Amer) 53.5 ml/min 07/23/17 04:33 BUN/Creatinine Ratio 57.3 07/23/17 04:33 Glucose 194 mg/dL (70-105) H 07/23/17 04:33 POC Glucose 205 MG/DL (70 - 105) H 07/23/17 06:32 Hemoglobin A1c % 6.2 % (4.0-6.0) H 07/18/17 23:30 Plasma/Ser Osmolality 344 mOsmol/kg (280-301) H 07/19/17 23:30 Whole Bld Lactic Acid 0.61 mmol/L (0.60-1.99) 07/20/17 04:10 Uric Acid 9.5 mg/dL (2.3-6.6) H 07/20/17 04:10 Calcium 8.6 mg/dL (8.6-10.3) 07/23/17 04:33 Phosphorus 4.5 mg/dL (2.5-5.0) 07/20/17 04:10 Magnesium 1.8 mg/dL (1.9-2.7) L 07/23/17 04:33 Total Bilirubin 0.3 mg/dL (0.3-1.0) 07/20/17 04:10 AST 8 U/L (13-39) L 07/20/17 04:10 ALT 14 U/L (7-52) 07/20/17 04:10 Alkaline Phosphatase 87 U/L (34-104) 07/20/17 04:10 Ammonia 51 umol/L (16-53) 07/23/17 04:33 Creatine Kinase 26 U/L (30-223) L 07/18/17 22:15 Troponin I 0.27 ng/mL (0.01-0.05) H* 07/18/17 22:15 B-Natriuretic Peptide 775.0 pg/mL (5.0-100.0) H 07/23/17 04:33 Total Protein 6.6 gm/dL (6.0-8.3) 07/20/17 04:10 Albumin 2.7 gm/dL (3.7-5.3) L 07/20/17 04:10 Globulin 3.9 gm/dL 07/20/17 04:10 Albumin/Globulin Ratio 0.7 (1.0-1.8) L 07/20/17 04:10 TSH 2.30 uIU/ml (0.34-5.60) 07/19/17 04:15 Urine Source [place] 07/18/17 21:30 Urine Color RED 07/18/17 21:30 Urine Clarity CLOUDY (CLEAR) H 07/18/17 21:30 Urine pH 7.5 (4.6 - 8.0) 07/18/17 21:30 Ur Specific [place] 1.025 (1.005-1.030) 07/18/17 21:30 Urine Protein >=300 mg/dL (NEGATIVE) 07/18/17 21:30 Urine Glucose (UA) NEGATIVE mg/dL (NEGATIVE) 07/18/17 21:30 Urine Ketones NEGATIVE mg/dL (NEGATIVE) 07/18/17 21:30 Urine Blood LARGE (NEGATIVE) H 07/18/17 21:30 Urine Nitrate NEGATIVE (NEGATIVE) 07/18/17 21:30 Urine Bilirubin NEGATIVE (NEGATIVE) 07/18/17 21:30 Urine Urobilinogen 0.2 E.U./dL (0.2 - 1.0) 07/18/17 21:30 Ur Leukocyte Esterase SMALL (NEGATIVE) H 07/18/17 21:30 Urine RBC 50-100 /hpf (0-5) H 07/18/17 21:30 Urine WBC 6-10 /hpf (0-5) H 07/18/17 21:30 Ur Epithelial Cells FEW /lpf (FEW) 07/18/17 21:30 Urine Bacteria MANY /hpf (NONE SEEN) 07/18/17 21:30 Ur Random Sodium 28 mmol/L 07/19/17 22:30 Urine Creatinine 26.3 mg/dl (Not Estab.) 07/19/17 22:30 Urine Microalbumin 2398.5 ug/mL (Not Estab.) 07/19/17 22:30 Microalb/Creat Ratio 9119.8 07/19/17 22:30 Random Vancomycin 21.2 ug/mL (5.0-40.0) 07/23/17 04:33 Blood Type O NEGATIVE 07/20/17 08:15 Antibody Screen NEGATIVE 07/20/17 08:15 - Physical Exam Vitals and I&O: Vital Signs Temp 97.0 F 07/23/17 08:00 Pulse 78 07/23/17 11:00 Resp 20 07/23/17 11:00 BP 150/53 07/23/17 11:00 Pulse Ox 100 07/23/17 11:00 Intake & Output 07/22/17 07/23/17 07/23/17 18:59 06:59 18:59 Intake Total 300 1360 Output Total 1900 800 625 Balance -1900 -500 735 Weight (lbs) 145 lb 155 lb 155 lb Intake: Intake, IV Amount 100 1000 0.45% NS w/20 mEq KCl 1, 1000 000 ml @ 100 mls/hr IV . Q10H [facility] Rx#:[id number] Piperacillin Sodium/ 100 Tazobact 2.25 gm In Dextrose 5% 50 ml @ 100 mls/hr IV Q8H [facility] Rx#: [id number] Oral 0 Tube Feeding 160 Other 200 200 Output: Urine 1900 800 625 Other: # Bowel Movements 0 0 Active Medications: Current Medications Acetaminophen (Tylenol 650mg/20.3ml Suspension) 650 mg GT Q4H PRN PRN Reason: Pain or Fever >101 Stop: 09/16/17 23:47 Last Admin: 07/22/17 00:35 Dose: 650 mg Albuterol/Ipratropium (Duoneb Neb) 3 ml HHN Q6HRT [facility] Stop: 09/17/17 12:59 Last Admin: 07/23/17 07:28 Dose: 3 ml Albuterol/Ipratropium (Duoneb Neb) 3 ml HHN Q2HR PRN PRN Reason: Shortness of Breath Stop: 09/16/17 23:47 Ascorbic Acid (Vitamin C) 500 mg GT DAILY [facility] Stop: 09/17/17 08:59 Last Admin: 07/23/17 09:07 Dose: 500 mg Bisacodyl (Dulcolax 10 Mg Supp) 10 mg RC DAILY PRN PRN Reason: constip Stop: 09/16/17 23:47 Carvedilol (Coreg) 3.125 mg GT BID [facility] Stop: 09/17/17 08:59 Last Admin: 07/23/17 09:06 Dose: 3.125 mg Chlorhexidine Gluconate (Peridex) 15 ml MM 0800,1999 [facility] Stop: 09/17/17 07:59 Last Admin: 07/23/17 08:51 Dose: 15 ml Docusate Sodium (Colace) 100 mg GT BID PRN PRN Reason: Constipation Famotidine (Pepcid) 20 mg GT Q12H [facility] Stop: 09/16/17 23:44 Last Admin: 07/22/17 23:40 Dose: 20 mg Guaifenesin (Robitussin) 200 mg PO Q4HR PRN PRN Reason: Cough or Congestion Stop: 09/16/17 23:54 Heparin Sodium (Porcine) (Heparin) 5,000 units SUBQ Q12HR [facility] Stop: 09/17/17 08:59 Last Admin: 07/23/17 09:10 Dose: 5,000 units Piperacillin Sod/Tazobactam (Sod 2.25 gm/ Dextrose) 50 mls @ 100 mls/hr IV Q8H [facility] Stop: 09/17/17 16:59 Last Admin: 07/23/17 10:11 Dose: Not Given Potassium Chloride/Sodium Chloride (0.45% Ns W/20 Meq Kcl) 1,000 mls @ 100 mls/ hr IV .Q10H [facility] Stop: 09/20/17 14:59 Last Admin: 07/23/17 07:40 Dose: 100 mls/hr Vancomycin HCl 1 gm/ Dextrose 250 mls @ 165 mls/hr IV 1400 ONE Stop: 07/23/17 15:30 Potassium Chloride 40 meq/Lidocaine HCl 25 mg/ Sodium Chloride 272.5 mls @ 68 mls/hr IV X1 ONE Stop: 07/23/17 13:32 Last Admin: 07/23/17 10:32 Dose: 68 mls/hr Insulin Aspart (Novolog) 0 units SUBQ Q6HR [facility] PRN Reason: Protocol Stop: 09/18/17 17:59 Last Admin: 07/23/17 06:40 Dose: 5 units Insulin Detemir (Levemir Insulin) 24 units SUBQ BID [facility] PRN Reason: Protocol Stop: 09/20/17 08:59 Last Admin: 07/23/17 10:28 Dose: 24 units Lactobacillus Rhamnosus (Culturelle) 1 each PO DAILY [facility] Stop: 09/18/17 08:59 Last Admin: 07/23/17 09:07 Dose: 1 each Magnesium Hydroxide (Milk Of Magnesia) 30 ml GT HS PRN PRN Reason: Constipation Stop: 09/16/17 23:47 Metoclopramide HCl (Reglan) 10 mg GT Q8H [facility] Stop: 09/20/17 13:01 Last Admin: 07/23/17 05:05 Dose: 10 mg Miscellaneous (Vancomycin Iv Per Pharmacy) 1 ea PRN [facility] Stop: 09/16/17 23:44 Miscellaneous (Clinical Monitoring) 1 ea PRN PRN PRN Reason: RENAL DOSE ZOSYN Stop: 09/17/17 08:23 Miscellaneous (Probiotic Screen) 1 ea PRN PRN PRN Reason: PROTOCOL Stop: 09/17/17 10:14 Miscellaneous (Vte Chemical Prophylaxis Screen/ Admission) 1 ea PRN PRN PRN Reason: PROTOCOL Stop: 09/17/17 13:47 Morphine Sulfate (Morphine) 2 mg IVP Q4H PRN PRN Reason: Pain (Severe) Stop: 09/16/17 23:53 Last Admin: 07/22/17 11:41 Dose: 2 mg Ondansetron HCl (Zofran) 4 mg IV Q8H PRN PRN Reason: Nausea / Vomiting Stop: 09/16/17 23:54 Last Admin: 07/21/17 18:48 Dose: 4 mg Potassium Chloride (Potassium Chloride Elixir) 20 meq GT BID [facility] Stop: 08/01/17 17:01 Last Admin: 07/23/17 10:24 Dose: 20 meq Sodium Phosphate (Fleet Enema) 135 ml RC Q48H PRN PRN Reason: Constipation Stop: 09/16/17 23:47 Vancomycin HCl (Vancomycin Oral) 250 mg GT Q6HR [facility] Stop: 09/18/17 17:59 Last Admin: 07/23/17 06:43 Dose: 250 mg Zinc Sulfate (Zinc Sulfate) 220 mg GT DAILY [facility] Stop: 09/17/17 08:59 Last Admin: 07/23/17 09:07 Dose: 220 mg General: weak, obtunded HEENT: NC/AT, PERRLA Neck: Supple Lungs: ronchi Cardiovascular: RRR, without murmur Abdomen: soft, non-tender, non-distended, +GT, positive bowel sound Extremities: excoriation Neurological: bedbound - Procedures Procedures: Procedures Procedure Code Date RESPIRATORY VENTILATION, 24-96 CONSECUTIVE HOURS [id number] 07/18/17 Internal Medicine Assmt/Plan - Assessment Assessment: sepsis chronic respiratory failure VDRF leukocytosis hematuria-improved htn dm2 cad chf anemia tracheostomy status hypokalemia acute renal insufficiency elevated troponin mild protein calorie malnutrition acute uti - Plan Plan: continue with ivabx renal follow up monitor h/h follow up labs in am vent support continue current plan of care Nutritional Asmnt/Malnutr-PDOC - Dietary Evaluation Malnutrition Findings (Please click <Entered> for more info): Nutritional Asmnt/Malnutrition Start: 07/19/17 17: 24 Text: Status: Complete Freq: Document 07/19/17 17:25 LCHENG (Rec: 07/19/17 17:43 LCHENG [email or web address]) Nutritional Asmnt/Malnutrition Patient General Information Nutritional Screening High Risk Consult Diagnosis Sepsis, UTI Pertinent Medical Hx/Surgical Hx HTN, DM, CAD, CHF, chronic resperatory failure, anemia, PEG/Gtube, tracheostomy Subjective Information Consult received for elevated BG. Pt seen lying in bed, on vent, non verbal comminication noted. Not able to obtain nutrition hx. Spoke with RN, no nutrition plan at this time . Current Diet Order/ Nutrition Support NPO Pertinent Medications Vitamin C, novolog, cultrelle, reglan, vancomycin, , piperacillin, Nacl 0.9%, Zinc Pertinent Labs 07/19 Na 132, K 5.3, Cl 97L, BUN 137, Cr 2.7, Glu 353, POC 324-394, A1C 6.2 Nutritional Hx/Data Height 5 ft 2 in Height (Calculated Centimeters) 157.5 Current Weight (lbs) 178 lb 3.2 oz Weight (Calculated Kilograms) 80.8 Weight (Calculated Grams) 87713.2 [place] Body Weight 110 % [place] Body Weight 162 Body Mass Index (BMI) 32.5 Weight Status Obese GI Symptoms GI Symptoms None Last BM none Usual diet at home Glucerna 1.5 60ml/hr x 20hr daily at [facility] Skin Integrity/Comment: decubitus ulceration to sacrum Estimated Nutritional Goals BEE in Kcals: Adj wt of IBW Calories/Kcals/Kg 30-35 Kcals Calculated Protein: Adj wt of IBW Protein g/k.2-1.5 Protein Calculated 69-87 Fluid: ml Nutritional Problem 2. Problem Problem increased nutrition needs ( calorie and protein) Etiology increased metabolic demand for healing Signs/Symptoms: sepsis 1. Problem Problem altered nutrition related lab values Etiology hx of DM, acute renal insufficiency Signs/Symptoms: BUN 137, Cr 2.7, Glu 353, POC 324-394, A1C 6.2 Malnutrition Alert Protein-Calorie Malnutrition N/A Is there a minimum of two criteria No selected? Query Text:Check all the applicable criteria. A minimum of two criteria are recommended for diagnosis of either severe or non-severe malnutrition. Intervention/Recommendation Comments 1. Monitor NPO status. 2. If enteral feeding needed, recommend to start Diabetisource AC at 30ml/hr continuous. Increased to goal rate of 60ml/hr continuous as tolerated. This will provide 1728kcal, 86g protein and 1179ml water, meeting 100% of nutritional needs. 3. Monitor wt, labs and skin integrity 4. F/U as high risk in 2-3 days, 07/21-07/22 Expected Outcomes/Goals Expected Outcomes/Goals 1. Pt to meet at least 75% of nutritional needs in 2-3 days 2. Wt stability, skin to remain intact, labs to improve .
[2017-07-23] MEDS: Morphine Sulfate 2 mg/mL 1mL Syr IVP PRN ×2 (12:44→17:38)
--- NOTE | 2017-07-23 15:05 | General Progress Note ---
Subjective - Review of Systems Service Date: 07/23/17 Subjective: awake, comfortable, on vent Objective - Results Result Diagrams: 07/23/17 04:33 07/23/17 04:33 Recent Labs: Laboratory Last Values WBC 22.3 Th/cmm (4.8-10.8) H* 07/23/17 04:33 RBC 4.13 Mil/cmm (3.80-5.10) 07/23/17 04:33 Hgb 11.3 gm/dL (12-16) L 07/23/17 04:33 Hct 34.9 % (41.0-60) L D 07/23/17 04:33 MCV 84.5 fl (81-100) 07/23/17 04:33 MCH 27.4 pg (27.0-31.0) 07/23/17 04:33 MCHC Differential 32.4 pg (28.0-36.0) 07/23/17 04:33 RDW 13.4 % (11.5-20.0) 07/23/17 04:33 Plt Count 234 Th/cmm (150-400) 07/23/17 04:33 MPV 12.3 fl 07/23/17 04:33 Band Neutrophils % 3 % (0-10) 07/23/17 04:33 Neutrophils (Manual) 73 % (40-80) 07/23/17 04:33 Lymphocytes 14 % (20-50) L 07/23/17 04:33 Monocytes 9 % (2-10) 07/23/17 04:33 Eosinophils 1 % (0-5) 07/23/17 04:33 Hypochromia 1+ 07/18/17 22:15 Platelet Estimate ADEQUATE (NORMAL) 07/23/17 04:33 Polychromasia 1+ 07/18/17 22:15 Smear Path Review YES 07/18/17 22:15 Eos Smear Source URINE 07/19/17 22:30 Eos Smear Total Cells NONE SEEN (NONE SEEN) 07/19/17 22:30 Sodium 151 mEq/L (136-145) H 07/23/17 04:33 Potassium 2.6 mEq/L (3.5-5.1) L* 07/23/17 04:33 Chloride 115 mEq/L (98-107) H 07/23/17 04:33 Carbon Dioxide 25.8 mEq/L (21.0-31.0) 07/23/17 04:33 Anion Gap 12.8 (7.0-16.0) 07/23/17 04:33 BUN 63 mg/dL (7-25) H 07/23/17 04:33 Creatinine 1.1 mg/dL (0.6-1.2) 07/23/17 04:33 Est GFR ( Amer) > 60.0 ml/min (>90) 07/23/17 04:33 Est GFR (Non-Af Amer) 53.5 ml/min 07/23/17 04:33 BUN/Creatinine Ratio 57.3 07/23/17 04:33 Glucose 194 mg/dL (70-105) H 07/23/17 04:33 POC Glucose 205 MG/DL (70 - 105) H 07/23/17 06:32 Hemoglobin A1c % 6.2 % (4.0-6.0) H 07/18/17 23:30 Plasma/Ser Osmolality 344 mOsmol/kg (280-301) H 07/19/17 23:30 Whole Bld Lactic Acid 0.61 mmol/L (0.60-1.99) 07/20/17 04:10 Uric Acid 9.5 mg/dL (2.3-6.6) H 07/20/17 04:10 Calcium 8.6 mg/dL (8.6-10.3) 07/23/17 04:33 Phosphorus 4.5 mg/dL (2.5-5.0) 07/20/17 04:10 Magnesium 1.8 mg/dL (1.9-2.7) L 07/23/17 04:33 Total Bilirubin 0.3 mg/dL (0.3-1.0) 07/20/17 04:10 AST 8 U/L (13-39) L 07/20/17 04:10 ALT 14 U/L (7-52) 07/20/17 04:10 Alkaline Phosphatase 87 U/L (34-104) 07/20/17 04:10 Ammonia 51 umol/L (16-53) 07/23/17 04:33 Creatine Kinase 26 U/L (30-223) L 07/18/17 22:15 Troponin I 0.27 ng/mL (0.01-0.05) H* 07/18/17 22:15 B-Natriuretic Peptide 775.0 pg/mL (5.0-100.0) H 07/23/17 04:33 Total Protein 6.6 gm/dL (6.0-8.3) 07/20/17 04:10 Albumin 2.7 gm/dL (3.7-5.3) L 07/20/17 04:10 Globulin 3.9 gm/dL 07/20/17 04:10 Albumin/Globulin Ratio 0.7 (1.0-1.8) L 07/20/17 04:10 TSH 2.30 uIU/ml (0.34-5.60) 07/19/17 04:15 Urine Source [place] 07/18/17 21:30 Urine Color RED 07/18/17 21:30 Urine Clarity CLOUDY (CLEAR) H 07/18/17 21:30 Urine pH 7.5 (4.6 - 8.0) 07/18/17 21:30 Ur Specific [place] 1.025 (1.005-1.030) 07/18/17 21:30 Urine Protein >=300 mg/dL (NEGATIVE) 07/18/17 21:30 Urine Glucose (UA) NEGATIVE mg/dL (NEGATIVE) 07/18/17 21:30 Urine Ketones NEGATIVE mg/dL (NEGATIVE) 07/18/17 21:30 Urine Blood LARGE (NEGATIVE) H 07/18/17 21:30 Urine Nitrate NEGATIVE (NEGATIVE) 07/18/17 21:30 Urine Bilirubin NEGATIVE (NEGATIVE) 07/18/17 21:30 Urine Urobilinogen 0.2 E.U./dL (0.2 - 1.0) 07/18/17 21:30 Ur Leukocyte Esterase SMALL (NEGATIVE) H 07/18/17 21:30 Urine RBC 50-100 /hpf (0-5) H 07/18/17 21:30 Urine WBC 6-10 /hpf (0-5) H 07/18/17 21:30 Ur Epithelial Cells FEW /lpf (FEW) 07/18/17 21:30 Urine Bacteria MANY /hpf (NONE SEEN) 07/18/17 21:30 Ur Random Sodium 28 mmol/L 07/19/17 22:30 Urine Creatinine 26.3 mg/dl (Not Estab.) 07/19/17 22:30 Urine Microalbumin 2398.5 ug/mL (Not Estab.) 07/19/17 22:30 Microalb/Creat Ratio 9119.8 07/19/17 22:30 Random Vancomycin 21.2 ug/mL (5.0-40.0) 07/23/17 04:33 Blood Type O NEGATIVE 07/20/17 08:15 Antibody Screen NEGATIVE 07/20/17 08:15 - Physical Exam Vitals and I&O: Vital Signs Temp 97.2 F 07/23/17 12:00 Pulse 67 07/23/17 14:00 Resp 14 07/23/17 14:00 BP 152/56 07/23/17 14:00 Pulse Ox 100 07/23/17 14:00 Intake & Output 07/22/17 07/23/17 07/23/17 18:59 06:59 18:59 Intake Total 300 1360 Output Total 1900 800 625 Balance -1900 -500 735 Weight (lbs) 65.771 kg 70.307 kg 70.307 kg Intake: Intake, IV Amount 100 1000 0.45% NS w/20 mEq KCl 1, 1000 000 ml @ 100 mls/hr IV . Q10H [facility] Rx#:[id number] Piperacillin Sodium/ 100 Tazobact 2.25 gm In Dextrose 5% 50 ml @ 100 mls/hr IV Q8H [facility] Rx#: [id number] Oral 0 Tube Feeding 160 Other 200 200 Output: Urine 1900 800 625 Other: # Bowel Movements 0 0 Active Medications: Current Medications Acetaminophen (Tylenol 650mg/20.3ml Suspension) 650 mg GT Q4H PRN PRN Reason: Pain or Fever >101 Stop: 09/16/17 23:47 Last Admin: 07/22/17 00:35 Dose: 650 mg Albuterol/Ipratropium (Duoneb Neb) 3 ml HHN Q6HRT [facility] Stop: 09/17/17 12:59 Last Admin: 07/23/17 12:54 Dose: 3 ml Albuterol/Ipratropium (Duoneb Neb) 3 ml HHN Q2HR PRN PRN Reason: Shortness of Breath Stop: 09/16/17 23:47 Ascorbic Acid (Vitamin C) 500 mg GT DAILY [facility] Stop: 09/17/17 08:59 Last Admin: 07/23/17 09:07 Dose: 500 mg Bisacodyl (Dulcolax 10 Mg Supp) 10 mg RC DAILY PRN PRN Reason: constip Stop: 09/16/17 23:47 Carvedilol (Coreg) 3.125 mg GT BID [facility] Stop: 09/17/17 08:59 Last Admin: 07/23/17 09:06 Dose: 3.125 mg Chlorhexidine Gluconate (Peridex) 15 ml MM 0800,2000 [facility] Stop: 09/17/17 07:59 Last Admin: 07/23/17 08:51 Dose: 15 ml Docusate Sodium (Colace) 100 mg GT BID PRN PRN Reason: Constipation Famotidine (Pepcid) 20 mg GT Q12H [facility] Stop: 09/16/17 23:44 Last Admin: 07/23/17 13:37 Dose: 20 mg Guaifenesin (Robitussin) 200 mg PO Q4HR PRN PRN Reason: Cough or Congestion Stop: 09/16/17 23:54 Heparin Sodium (Porcine) (Heparin) 5,000 units SUBQ Q12HR [facility] Stop: 09/17/17 08:59 Last Admin: 07/23/17 09:10 Dose: 5,000 units Piperacillin Sod/Tazobactam (Sod 2.25 gm/ Dextrose) 50 mls @ 100 mls/hr IV Q8H [facility] Stop: 09/17/17 16:59 Last Admin: 07/23/17 09:30 Dose: 100 mls/hr Potassium Chloride/Sodium Chloride (0.45% Ns W/20 Meq Kcl) 1,000 mls @ 100 mls/ hr IV .Q10H [facility] Stop: 09/20/17 14:59 Last Admin: 07/23/17 07:40 Dose: 100 mls/hr Vancomycin HCl 1 gm/ Dextrose 250 mls @ 165 mls/hr IV 1400 ONE Stop: 07/23/17 15:30 Last Admin: 07/23/17 14:54 Dose: 165 mls/hr Insulin Aspart (Novolog) 0 units SUBQ Q6HR [facility] PRN Reason: Protocol Stop: 09/18/17 17:59 Last Admin: 07/23/17 13:11 Dose: Not Given Insulin Detemir (Levemir Insulin) 24 units SUBQ BID [facility] PRN Reason: Protocol Stop: 09/20/17 08:59 Last Admin: 07/23/17 10:28 Dose: 24 units Lactobacillus Rhamnosus (Culturelle) 1 each PO DAILY [facility] Stop: 09/18/17 08:59 Last Admin: 07/23/17 09:07 Dose: 1 each Magnesium Hydroxide (Milk Of Magnesia) 30 ml GT HS PRN PRN Reason: Constipation Stop: 09/16/17 23:47 Metoclopramide HCl (Reglan) 10 mg GT Q8H [facility] Stop: 09/20/17 13:01 Last Admin: 07/23/17 13:38 Dose: 10 mg Miscellaneous (Vancomycin Iv Per Pharmacy) 1 ea PRN [facility] Stop: 09/16/17 23:44 Miscellaneous (Clinical Monitoring) 1 ea PRN PRN PRN Reason: RENAL DOSE ZOSYN Stop: 09/17/17 08:23 Miscellaneous (Probiotic Screen) 1 ea PRN PRN PRN Reason: PROTOCOL Stop: 09/17/17 10:14 Miscellaneous (Vte Chemical Prophylaxis Screen/ Admission) 1 ea PRN PRN PRN Reason: PROTOCOL Stop: 09/17/17 13:47 Morphine Sulfate (Morphine) 2 mg IVP Q4H PRN PRN Reason: Pain (Severe) Stop: 09/16/17 23:53 Last Admin: 07/23/17 12:44 Dose: 2 mg Ondansetron HCl (Zofran) 4 mg IV Q8H PRN PRN Reason: Nausea / Vomiting Stop: 09/16/17 23:54 Last Admin: 07/21/17 18:48 Dose: 4 mg Potassium Chloride (Potassium Chloride Elixir) 20 meq GT BID [facility] Stop: 08/01/17 17:01 Last Admin: 07/23/17 10:24 Dose: 20 meq Sodium Phosphate (Fleet Enema) 135 ml RC Q48H PRN PRN Reason: Constipation Stop: 09/16/17 23:47 Vancomycin HCl (Vancomycin Oral) 250 mg GT Q6HR [facility] Stop: 09/18/17 17:59 Last Admin: 07/23/17 13:38 Dose: 250 mg Zinc Sulfate (Zinc Sulfate) 220 mg GT DAILY [facility] Stop: 09/17/17 08:59 Last Admin: 07/23/17 09:07 Dose: 220 mg General: No acute distress HEENT: Atraumatic, Mucous membr. moist/pink Neck: Supple, +2 carotid pulse wo bruit Cardiovascular: Regular rate, Normal S1, Normal S2 Lungs: Other (coarse rhonchi) Abdomen: Soft, Distended Extremities: no Edema Neurological: Sensation intact Skin: no Rash Psych/Mental Status: Mood NL - Procedures Procedures: Procedures Procedure Code Date RESPIRATORY VENTILATION, 24-96 CONSECUTIVE HOURS [id number] 07/18/17 Assessment/Plan - Assessment Assessment: ADELA Right Hydronephrosis, hydroureter w/ partial obstruction since has good UOP, improvement Kidney fnc Gross hematuria 2nd to trauma better Sepsis 2nd to Cx UTI RFVD Anemia CD Ess Htn Type 2 DM Met Enceph C. diff colitis Hypokalemia Hypernatremia - Plan Plan: Lab - Result Diagrams 07/20/17 04:10 07/20/17 04:10 Current Medications Acetaminophen (Tylenol 650mg/20.3ml Suspension) 650 mg GT Q4H PRN PRN Reason: Pain or Fever >101 Stop: 09/16/17 23:47 Albuterol/Ipratropium (Duoneb Neb) 3 ml HHN Q6HRT [facility] Stop: 09/17/17 12:59 Last Admin: 07/20/17 13:39 Dose: 3 ml Albuterol/Ipratropium (Duoneb Neb) 3 ml HHN Q2HR PRN PRN Reason: Shortness of Breath Stop: 09/16/17 23:47 Ascorbic Acid (Vitamin C) 500 mg GT DAILY [facility] Stop: 09/17/17 08:59 Last Admin: 07/20/17 09:07 Dose: 500 mg Bisacodyl (Dulcolax 10 Mg Supp) 10 mg RC DAILY PRN PRN Reason: constip Stop: 09/16/17 23:47 Carvedilol (Coreg) 3.125 mg GT BID [facility] Stop: 09/17/17 08:59 Last Admin: 07/20/17 16:43 Dose: 3.125 mg Chlorhexidine Gluconate (Peridex) 15 ml MM 0800,2000 [facility] Stop: 09/17/17 07:59 Last Admin: 07/20/17 07:56 Dose: 15 ml Docusate Sodium (Colace) 100 mg GT BID PRN PRN Reason: Constipation Famotidine (Pepcid) 20 mg GT Q12H [facility] Stop: 09/16/17 23:44 Last Admin: 07/20/17 11:56 Dose: 20 mg Guaifenesin (Robitussin) 200 mg PO Q4HR PRN PRN Reason: Cough or Congestion Stop: 09/16/17 23:54 Heparin Sodium (Porcine) (Heparin) 5,000 units SUBQ Q12HR [facility] Stop: 09/17/17 08:59 Last Admin: 07/20/17 09:09 Dose: 5,000 units Piperacillin Sod/Tazobactam (Sod 2.25 gm/ Sodium Chloride) 100 mls @ 100 mls/ hr IV Q8H [facility] Stop: 09/17/17 08:59 Last Admin: 07/20/17 16:43 Dose: 100 mls/hr Vancomycin HCl 1 gm/ Dextrose 250 mls @ 165 mls/hr IV Q36H [facility] Stop: 09/18/17 01:59 Last Infusion: 07/20/17 04:00 Dose: Infused Sodium Chloride (Nacl 0.9%) 1,000 mls @ 100 mls/hr IV .Q10H [facility] Stop: 09/16/17 23:44 Last Admin: 07/20/17 02:00 Dose: 100 mls/hr Insulin Aspart (Novolog) 0 units SUBQ Q6HR [facility] PRN Reason: Protocol Stop: 09/18/17 17:59 Insulin Detemir (Levemir Insulin) 18 units SUBQ BID [facility] PRN Reason: Protocol Stop: 09/18/17 08:59 Last Admin: 07/20/17 16:44 Dose: 18 units Lactobacillus Rhamnosus (Culturelle) 1 each PO DAILY [facility] Stop: 09/18/17 08:59 Last Admin: 07/20/17 09:07 Dose: 1 each Magnesium Hydroxide (Milk Of Magnesia) 30 ml GT HS PRN PRN Reason: Constipation Stop: 09/16/17 23:47 Metoclopramide HCl (Reglan) 5 mg GT Q8H [facility] Stop: 09/16/17 23:44 Last Admin: 07/20/17 15:45 Dose: Not Given Miscellaneous (Vancomycin Iv Per Pharmacy) 1 ea MC PRN [facility] Stop: 09/16/17 23:44 Miscellaneous (Clinical Monitoring) 1 ea MC PRN PRN PRN Reason: RENAL DOSE [facility] Stop: 09/17/17 08:23 Miscellaneous (Probiotic Screen) 1 ea MC PRN PRN PRN Reason: PROTOCOL Stop: 09/17/17 10:14 Miscellaneous (Vte Chemical Prophylaxis Screen/ Admission) 1 ea MC PRN PRN PRN Reason: PROTOCOL Stop: 09/17/17 13:47 Morphine Sulfate (Morphine) 2 mg IVP Q4H PRN PRN Reason: Pain (Severe) Stop: 09/16/17 23:53 Ondansetron HCl (Zofran) 4 mg IV Q8H PRN PRN Reason: Nausea / Vomiting Stop: 09/16/17 23:54 Sodium Phosphate (Fleet Enema) 135 ml RC Q48H PRN PRN Reason: Constipation Stop: 09/16/17 23:47 Vancomycin HCl (Vancomycin Oral) 250 mg GT Q6HR [facility] Stop: 09/18/17 17:59 Last Admin: 07/20/17 17:54 Dose: 250 mg Zinc Sulfate (Zinc Sulfate) 220 mg GT DAILY [facility] Stop: 09/17/17 08:59 Last Admin: 07/20/17 09:07 Dose: 220 mg Lab - Result Diagrams 07/23/17 04:33 07/23/17 04:33 kidney fnc gradually improving replace K C02 better, dc NaHC03 drop Hgb due to hematuria CT pelvis revealed right hydronephrosis/ureter f/u elelctrolytes, cbc Nutritional Asmnt/Malnutr-PDOC - Dietary Evaluation Malnutrition Findings (Please click <Entered> for more info): Nutritional Asmnt/Malnutrition Start: 07/19/17 17: 24 Text: Status: Complete Freq: Document 07/19/17 17:25 LCHENG (Rec: 07/19/17 17:43 LCHENG [id number]) Nutritional Asmnt/Malnutrition Patient General Information Nutritional Screening High Risk Consult Diagnosis Sepsis, UTI Pertinent Medical Hx/Surgical Hx HTN, DM, CAD, CHF, chronic resperatory failure, anemia, PEG/Gtube, tracheostomy Subjective Information Consult received for elevated BG. Pt seen lying in bed, on vent, non verbal comminication noted. Not able to obtain nutrition hx. Spoke with RN, no nutrition plan at this time . Current Diet Order/ Nutrition Support NPO Pertinent Medications Vitamin C, novolog, cultrelle, reglan, vancomycin, , piperacillin, Nacl 0.9%, Zinc Pertinent Labs 07/19 Na 132, K 5.3, Cl 97L, BUN 137, Cr 2.7, Glu 353, POC 324-394, A1C 6.2 Nutritional Hx/Data Height 1.57 m Height (Calculated Centimeters) 157.5 Current Weight (lbs) 80.83 kg Weight (Calculated Kilograms) 80.8 Weight (Calculated Grams) 16458.2 [place] Body Weight 110 % [place] Body Weight 162 Body Mass Index (BMI) 32.5 Weight Status Obese GI Symptoms GI Symptoms None Last BM none Usual diet at home Glucerna 1.5 60ml/hr x 20hr daily at [facility] Skin Integrity/Comment: decubitus ulceration to sacrum Estimated Nutritional Goals BEE in Kcals: Adj wt of IBW Calories/Kcals/Kg 30-35 Kcals Calculated Protein: Adj wt of IBW Protein g/k.2-1.5 Protein Calculated - Fluid: ml Nutritional Problem 2. Problem Problem increased nutrition needs ( calorie and protein) Etiology increased metabolic demand for healing Signs/Symptoms: sepsis 1. Problem Problem altered nutrition related lab values Etiology hx of DM, acute renal insufficiency Signs/Symptoms: BUN 137, Cr 2.7, Glu 353, POC 324-394, A1C 6.2 Malnutrition Alert Protein-Calorie Malnutrition N/A Is there a minimum of two criteria No selected? Query Text:Check all the applicable criteria. A minimum of two criteria are recommended for diagnosis of either severe or non-severe malnutrition. Intervention/Recommendation Comments 1. Monitor NPO status. 2. If enteral feeding needed, recommend to start Diabetisource AC at 30ml/hr continuous. Increased to goal rate of 60ml/hr continuous as tolerated. This will provide 1728kcal, 86g protein and 1179ml water, meeting 100% of nutritional needs. 3. Monitor wt, labs and skin integrity 4. F/U as high risk in 2-3 days, 07/21-07/22 Expected Outcomes/Goals Expected Outcomes/Goals 1. Pt to meet at least 75% of nutritional needs in 2-3 days 2. Wt stability, skin to remain intact, labs to improve .
[2017-07-23] MEDS ORDERED: Potassium Chloride 20 mEq ER Tab PO SCH (17:00)
--- NOTE | 2017-07-23 17:51 | Progress Notes ---
DATE: 07/23/2017 UROLOGY PROGRESS NOTE SUBJECTIVE: The patient is in the ICU with elevated white count, but no other issues. The source of infection remains multifocal and difficult to localize. She has MRSA growing from the sacral wound stage 2 decubitus and C. difficile positive in the stools. Blood cultures have been negative so far. OBJECTIVE: VITAL SIGNS: On exam, she remains stable on the ventilator at a rate of 12, saturating 100%, blood pressure fluctuated between 150-160 systolic after a temporary rise this morning, treated with clonidine and morphine. Diastolics range between 60s and 50s, heart rate around 60-65. She has remained afebrile. ABDOMEN: Remains soft, with the G-tube tolerating feeds without difficulty. No tenderness, guarding, or rebound. Ocampo catheter is draining well about 300 mL an hour, casper colored, being irrigated. I explained to the nurses once again to use 200 mL at one time and not every hour or so. LABS: Potassium came down to 2.6, which is being replaced. Creatinine down to 1.1, close to a baseline. WBC remained elevated at 22.3. IMPRESSION: 1. Sepsis, source unclear with decubitus, clostridium difficile diarrhea, probably urinary tract infection as well and hydronephrosis. 2. Right hydronephrosis, should improve with the Ocampo and we will repeat an ultrasound in another week or so as an inpatient or outpatient. 3. Neurogenic bladder secondary to diabetes, multiple sclerosis, and stroke as well as back injury. 4. Dementia. 5. Coronary artery disease and congestive heart failure, stable at this point. 6. Respiratory failure, requires chronic ventilator support. JOB# [id number]
[2017-07-23 20:26] LABS: ANION GAP 11.1 (7.0-16.0); BUN - UREA NITROGEN 52 mg/dL (7-25); CALCIUM SERUM 8.1 mg/dL (8.6-10.3); CHLORIDE 116 mEq/L (98-107); GFR AFRICAN-AMERICAN > 60.0 ml/min (>90); GFR NON AFRICAN-AMERICAN 59.7 ml/min; GLUCOSE 168 mg/dL (70-105); POTASSIUM SERUM 3.1 mEq/L (3.5-5.1); SODIUM SERUM 148 mEq/L (136-145)
[2017-07-24] MEDS: INSULIN ASPART, RECOMBINANT 100 UNITS/ML SUBQ SCH ×5 (00:11→23:11)
[2017-07-24] MEDS: Albuterol/Ipratropium Neb 3 ML AERS HHN SCH ×4 (01:38→18:49)
[2017-07-24] MEDS: 0.45% NS w/20 mEq KCl 1,000 ML IV SCH (02:34)
[2017-07-24] MEDS: Vancomycin HCL 250 mg /10mL UDC GT SCH ×5 (05:52→23:27)
[2017-07-24 06:30] LABS: % BASOPHILS 0.3 % (0.0-2.0); % EOSINOPHILS 2.6 % (0.0-5.0); % LYMPHOCYTES 15.6 % (20.0-50.0); % MONOCYTES 4.2 % (2.0-10.0); % NEUTROPHILS 77.3 % (40.0-80.0); BASOPHILE ABSOLUTE 0.1 Th/cumm (0-0.2); EOSINOPHILE ABSOLUTE 0.5 Th/cmm (0.1-0.4); HEMOGLOBIN 9.2 gm/dL (12-16); LYMPHOCYTE ABSOLUTE 2.7 Th/cmm (1.5-3.0); MEAN CORPUSCULAR HEMOGLOBIN 28.7 pg (27.0-31.0); MEAN CORPUSCULAR HGB CONC 33.7 pg (28.0-36.0); MEAN PLATELET VOLUME 10.3 fl; MONOCYTE ABSOLUTE 0.7 Th/cmm (0.3-1.0); NEUTROPHILE ABSOLUTE 13.4 Th/cmm (1.8-8.0); PLATELET COUNT 226 Th/cmm (150-400); RED BLOOD COUNT 3.21 Mil/cmm (3.80-5.10); RED CELL DISTRIBUTION WIDTH 13.8 % (11.5-20.0)
[2017-07-24 06:48] LABS: HEMATOCRIT 27.3 % (41.0-60); WHITE BLOOD COUNT 17.4 Th/cmm (4.8-10.8)
[2017-07-24 06:55] LABS: ANION GAP 9.6 (7.0-16.0); BUN - UREA NITROGEN 49 mg/dL (7-25); CALCIUM SERUM 8.1 mg/dL (8.6-10.3); CARBON DIOXIDE 25.3 mEq/L (21.0-31.0); CHLORIDE 118 mEq/L (98-107); CREATININE - SERUM 0.9 mg/dL (0.6-1.2); GFR AFRICAN-AMERICAN > 60.0 ml/min (>90); GFR NON AFRICAN-AMERICAN > 60.0 ml/min; GLUCOSE 110 mg/dL (70-105); POTASSIUM SERUM 3.9 mEq/L (3.5-5.1); SODIUM SERUM 149 mEq/L (136-145)
[2017-07-24] MEDS: Multivitamin w/ Minerals Tab GT SCH (09:07)
[2017-07-24] MEDS: Chlorhexidine Gluconate 0.12% 15mL Mouthwash MM SCH ×2 (09:07→20:29)
[2017-07-24] MEDS: Potassium Chloride Elixir 20 mEq /15 mL UDC GT SCH ×2 (09:08→17:18)
[2017-07-24] MEDS: Insulin Detemir 100 units/mL 10mL Vial SUBQ SCH ×2 (09:22→17:18)
--- NOTE | 2017-07-24 13:56 | General Progress Note ---
Subjective - Review of Systems Service Date: 07/24/17 Subjective: awake, comfortable, on vent Objective - Results Result Diagrams: 07/24/17 04:36 07/24/17 04:30 Recent Labs: Laboratory Last Values WBC 17.4 Th/cmm (4.8-10.8) H D 07/24/17 04:36 RBC 3.21 Mil/cmm (3.80-5.10) L 07/24/17 04:36 Hgb 9.2 gm/dL (12-16) L 07/24/17 04:36 Hct 27.3 % (41.0-60) L D 07/24/17 04:36 MCV 85.0 fl (81-100) 07/24/17 04:36 MCH 28.7 pg (27.0-31.0) 07/24/17 04:36 MCHC Differential 33.7 pg (28.0-36.0) 07/24/17 04:36 RDW 13.8 % (11.5-20.0) 07/24/17 04:36 Plt Count 226 Th/cmm (150-400) 07/24/17 04:36 MPV 10.3 fl 07/24/17 04:36 Neutrophils % 77.3 % (40.0-80.0) 07/24/17 04:36 Band Neutrophils % 3 % (0-10) 07/23/17 04:33 Lymphocytes % 15.6 % (20.0-50.0) L 07/24/17 04:36 Monocytes % 4.2 % (2.0-10.0) 07/24/17 04:36 Eosinophils % 2.6 % (0.0-5.0) 07/24/17 04:36 Basophils % 0.3 % (0.0-2.0) 07/24/17 04:36 Neutrophils (Manual) 73 % (40-80) 07/23/17 04:33 Lymphocytes 14 % (20-50) L 07/23/17 04:33 Monocytes 9 % (2-10) 07/23/17 04:33 Eosinophils 1 % (0-5) 07/23/17 04:33 Hypochromia 1+ 07/18/17 22:15 Platelet Estimate ADEQUATE (NORMAL) 07/23/17 04:33 Polychromasia 1+ 07/18/17 22:15 Smear Path Review YES 07/18/17 22:15 Eos Smear Source URINE 07/19/17 22:30 Eos Smear Total Cells NONE SEEN (NONE SEEN) 07/19/17 22:30 Sodium 149 mEq/L (136-145) H 07/24/17 04:30 Potassium 3.9 mEq/L (3.5-5.1) 07/24/17 04:30 Chloride 118 mEq/L (98-107) H 07/24/17 04:30 Carbon Dioxide 25.3 mEq/L (21.0-31.0) 07/24/17 04:30 Anion Gap 9.6 (7.0-16.0) 07/24/17 04:30 BUN 49 mg/dL (7-25) H 07/24/17 04:30 Creatinine 0.9 mg/dL (0.6-1.2) 07/24/17 04:30 Est GFR ( Amer) > 60.0 ml/min (>90) 07/24/17 04:30 Est GFR (Non-Af Amer) > 60.0 ml/min 07/24/17 04:30 BUN/Creatinine Ratio 54.4 07/24/17 04:30 Glucose 110 mg/dL (70-105) H 07/24/17 04:30 POC Glucose 134 MG/DL (70 - 105) H 07/24/17 12:44 Hemoglobin A1c % 6.2 % (4.0-6.0) H 07/18/17 23:30 Plasma/Ser Osmolality 344 mOsmol/kg (280-301) H 07/19/17 23:30 Whole Bld Lactic Acid 0.61 mmol/L (0.60-1.99) 07/20/17 04:10 Uric Acid 9.5 mg/dL (2.3-6.6) H 07/20/17 04:10 Calcium 8.1 mg/dL (8.6-10.3) L 07/24/17 04:30 Phosphorus 4.5 mg/dL (2.5-5.0) 07/20/17 04:10 Magnesium 1.9 mg/dL (1.9-2.7) 07/24/17 04:30 Total Bilirubin 0.3 mg/dL (0.3-1.0) 07/20/17 04:10 AST 8 U/L (13-39) L 07/20/17 04:10 ALT 14 U/L (7-52) 07/20/17 04:10 Alkaline Phosphatase 87 U/L (34-104) 07/20/17 04:10 Ammonia 51 umol/L (16-53) 07/23/17 04:33 Creatine Kinase 26 U/L (30-223) L 07/18/17 22:15 Troponin I 0.27 ng/mL (0.01-0.05) H* 07/18/17 22:15 B-Natriuretic Peptide 775.0 pg/mL (5.0-100.0) H 07/23/17 04:33 Total Protein 6.6 gm/dL (6.0-8.3) 07/20/17 04:10 Albumin 2.7 gm/dL (3.7-5.3) L 07/20/17 04:10 Globulin 3.9 gm/dL 07/20/17 04:10 Albumin/Globulin Ratio 0.7 (1.0-1.8) L 07/20/17 04:10 TSH 2.30 uIU/ml (0.34-5.60) 07/19/17 04:15 Urine Source [place] 07/18/17 21:30 Urine Color RED 07/18/17 21:30 Urine Clarity CLOUDY (CLEAR) H 07/18/17 21:30 Urine pH 7.5 (4.6 - 8.0) 07/18/17 21:30 Ur Specific [place] 1.025 (1.005-1.030) 07/18/17 21:30 Urine Protein >=300 mg/dL (NEGATIVE) 07/18/17 21:30 Urine Glucose (UA) NEGATIVE mg/dL (NEGATIVE) 07/18/17 21:30 Urine Ketones NEGATIVE mg/dL (NEGATIVE) 07/18/17 21:30 Urine Blood LARGE (NEGATIVE) H 07/18/17 21:30 Urine Nitrate NEGATIVE (NEGATIVE) 07/18/17 21:30 Urine Bilirubin NEGATIVE (NEGATIVE) 07/18/17 21:30 Urine Urobilinogen 0.2 E.U./dL (0.2 - 1.0) 07/18/17 21:30 Ur Leukocyte Esterase SMALL (NEGATIVE) H 07/18/17 21:30 Urine RBC 50-100 /hpf (0-5) H 07/18/17 21:30 Urine WBC 6-10 /hpf (0-5) H 07/18/17 21:30 Ur Epithelial Cells FEW /lpf (FEW) 07/18/17 21:30 Urine Bacteria MANY /hpf (NONE SEEN) 07/18/17 21:30 Ur Random Sodium 28 mmol/L 07/19/17 22:30 Urine Creatinine 26.3 mg/dl (Not Estab.) 07/19/17 22:30 Urine Microalbumin 2398.5 ug/mL (Not Estab.) 07/19/17 22:30 Microalb/Creat Ratio 9119.8 07/19/17 22:30 Stool Occult Blood NEGATIVE (NEGATIVE) 07/24/17 03:37 Random Vancomycin 26.6 ug/mL (5.0-40.0) 07/24/17 04:30 Blood Type O NEGATIVE 07/20/17 08:15 Antibody Screen NEGATIVE 07/20/17 08:15 - Physical Exam Vitals and I&O: Vital Signs Temp 98.0 F 07/24/17 08:00 Pulse 65 07/24/17 13:18 Resp 17 07/24/17 11:00 BP 144/31 07/24/17 11:00 Pulse Ox 100 07/24/17 13:18 Intake & Output 07/23/17 07/24/17 07/24/17 18:59 06:59 18:59 Intake Total 1860 1910 50 Output Total 1325 1050 Balance 535 860 50 Weight (lbs) 68.039 kg 70.307 kg Intake: Intake, IV Amount 1100 1050 50 0.45% NS w/20 mEq KCl 1, 1000 1000 000 ml @ 100 mls/hr IV . Q10H [facility] Rx#:[id number] Piperacillin Sodium/ 100 50 50 Tazobact 2.25 gm In Dextrose 5% 50 ml @ 100 mls/hr IV Q8H [facility] Rx#: [id number] Tube Feeding 560 560 Other 200 300 Output: Urine 1325 1050 Other: # Bowel Movements 1 Stool Characteristics Soft Formed Brown Active Medications: Current Medications Acetaminophen (Tylenol 650mg/20.3ml Suspension) 650 mg GT Q4H PRN PRN Reason: Pain or Fever >101 Stop: 09/16/17 23:47 Last Admin: 07/22/17 00:35 Dose: 650 mg Albuterol/Ipratropium (Duoneb Neb) 3 ml HHN Q6HRT [facility] Stop: 09/17/17 12:59 Last Admin: 07/24/17 13:17 Dose: 3 ml Albuterol/Ipratropium (Duoneb Neb) 3 ml HHN Q2HR PRN PRN Reason: Shortness of Breath Stop: 09/16/17 23:47 Ascorbic Acid (Vitamin C) 500 mg GT DAILY [facility] Stop: 09/17/17 08:59 Last Admin: 07/24/17 09:07 Dose: 500 mg Bisacodyl (Dulcolax 10 Mg Supp) 10 mg RC DAILY PRN PRN Reason: constip Stop: 09/16/17 23:47 Carvedilol (Coreg) 3.125 mg GT BID [facility] Stop: 09/17/17 08:59 Last Admin: 07/24/17 09:07 Dose: 3.125 mg Chlorhexidine Gluconate (Peridex) 15 ml MM 08,1999 [facility] Stop: 09/17/17 07:59 Last Admin: 07/24/17 09:07 Dose: 15 ml Docusate Sodium (Colace) 100 mg GT BID PRN PRN Reason: Constipation Famotidine (Pepcid) 20 mg GT Q12H [facility] Stop: 09/16/17 23:44 Last Admin: 07/24/17 12:50 Dose: 20 mg Guaifenesin (Robitussin) 200 mg PO Q4HR PRN PRN Reason: Cough or Congestion Stop: 09/16/17 23:54 Heparin Sodium (Porcine) (Heparin) 5,000 units SUBQ Q12HR [facility] Stop: 09/17/17 08:59 Last Admin: 07/24/17 09:07 Dose: 5,000 units Piperacillin Sod/Tazobactam (Sod 2.25 gm/ Dextrose) 50 mls @ 100 mls/hr IV Q8H [facility] Stop: 09/17/17 16:59 Last Infusion: 07/24/17 10:00 Dose: Infused Vancomycin HCl 1 gm/ Sodium (Chloride) 250 mls @ 165 mls/hr IV Q24H [facility] Stop: 09/22/17 15:59 Dextrose (D5w) 1,000 mls @ 100 mls/hr IV .Q10H [facility] Stop: 09/22/17 13:49 Insulin Aspart (Novolog) 0 units SUBQ Q6HR [facility] PRN Reason: Protocol Stop: 09/18/17 17:59 Last Admin: 07/24/17 12:47 Dose: Not Given Insulin Detemir (Levemir Insulin) 24 units SUBQ BID [facility] PRN Reason: Protocol Stop: 09/20/17 08:59 Last Admin: 07/24/17 09:22 Dose: 24 units Magnesium Hydroxide (Milk Of Magnesia) 30 ml GT HS PRN PRN Reason: Constipation Stop: 09/16/17 23:47 Metoclopramide HCl (Reglan) 10 mg GT Q8H [facility] Stop: 09/20/17 13:01 Last Admin: 07/24/17 12:46 Dose: 10 mg Miscellaneous (Vancomycin Iv Per Pharmacy) 1 ea MC PRN [facility] Stop: 09/16/17 23:44 Miscellaneous (Clinical Monitoring) 1 ea PRN PRN PRN Reason: RENAL DOSE ZOSYN Stop: 09/17/17 08:23 Miscellaneous (Probiotic Screen) 1 ea PRN PRN PRN Reason: PROTOCOL Stop: 09/17/17 10:14 Miscellaneous (Vte Chemical Prophylaxis Screen/ Admission) 1 ea PRN PRN PRN Reason: PROTOCOL Stop: 09/17/17 13:47 Morphine Sulfate (Morphine) 2 mg IVP Q4H PRN PRN Reason: Pain (Severe) Stop: 09/16/17 23:53 Last Admin: 07/23/17 17:38 Dose: 2 mg Ondansetron HCl (Zofran) 4 mg IV Q8H PRN PRN Reason: Nausea / Vomiting Stop: 09/16/17 23:54 Last Admin: 07/21/17 18:48 Dose: 4 mg Potassium Chloride (Potassium Chloride Elixir) 20 meq GT BID [facility] Stop: 08/01/17 17:01 Last Admin: 07/24/17 09:08 Dose: 20 meq Sodium Phosphate (Fleet Enema) 135 ml RC Q48H PRN PRN Reason: Constipation Stop: 09/16/17 23:47 Vancomycin HCl (Vancomycin Oral) 250 mg GT Q6HR [facility] Stop: 09/18/17 17:59 Last Admin: 07/24/17 12:46 Dose: 250 mg Zinc Sulfate (Zinc Sulfate) 220 mg GT DAILY [facility] Stop: 09/17/17 08:59 Last Admin: 07/24/17 09:07 Dose: 220 mg General: Alert, No acute distress HEENT: Atraumatic, Mucous membr. moist/pink Neck: Supple, +2 carotid pulse wo bruit Cardiovascular: Regular rate, Normal S1, Normal S2 Lungs: Other (coarse rhonchi) Abdomen: Soft, Distended Extremities: no Edema Neurological: Sensation intact Skin: no Rash Psych/Mental Status: Mood NL - Procedures Procedures: Procedures Procedure Code Date RESPIRATORY VENTILATION, 24-96 CONSECUTIVE HOURS [id number] 07/18/17 Assessment/Plan - Assessment Assessment: ADELA Right Hydronephrosis, hydroureter w/ partial obstruction since has good UOP, improvement Kidney fnc Gross hematuria 2nd to trauma better Sepsis 2nd to Cx UTI RFVD Anemia CD Ess Htn Type 2 DM Met Enceph C. diff colitis Hypokalemia Hypernatremia - Plan Plan: Lab - Result Diagrams 07/20/17 04:10 07/20/17 04:10 Current Medications Acetaminophen (Tylenol 650mg/20.3ml Suspension) 650 mg GT Q4H PRN PRN Reason: Pain or Fever >101 Stop: 09/16/17 23:47 Albuterol/Ipratropium (Duoneb Neb) 3 ml HHN Q6HRT [facility] Stop: 09/17/17 12:59 Last Admin: 07/20/17 13:39 Dose: 3 ml Albuterol/Ipratropium (Duoneb Neb) 3 ml HHN Q2HR PRN PRN Reason: Shortness of Breath Stop: 09/16/17 23:47 Ascorbic Acid (Vitamin C) 500 mg GT DAILY [facility] Stop: 09/17/17 08:59 Last Admin: 07/20/17 09:07 Dose: 500 mg Bisacodyl (Dulcolax 10 Mg Supp) 10 mg RC DAILY PRN PRN Reason: constip Stop: 09/16/17 23:47 Carvedilol (Coreg) 3.125 mg GT BID [facility] Stop: 09/17/17 08:59 Last Admin: 07/20/17 16:43 Dose: 3.125 mg Chlorhexidine Gluconate (Peridex) 15 ml MM 0800,2000 [facility] Stop: 09/17/17 07:59 Last Admin: 07/20/17 07:56 Dose: 15 ml Docusate Sodium (Colace) 100 mg GT BID PRN PRN Reason: Constipation Famotidine (Pepcid) 20 mg GT Q12H [facility] Stop: 09/16/17 23:44 Last Admin: 07/20/17 11:56 Dose: 20 mg Guaifenesin (Robitussin) 200 mg PO Q4HR PRN PRN Reason: Cough or Congestion Stop: 09/16/17 23:54 Heparin Sodium (Porcine) (Heparin) 5,000 units SUBQ Q12HR [facility] Stop: 09/17/17 08:59 Last Admin: 07/20/17 09:09 Dose: 5,000 units Piperacillin Sod/Tazobactam (Sod 2.25 gm/ Sodium Chloride) 100 mls @ 100 mls/ hr IV Q8H [facility] Stop: 09/17/17 08:59 Last Admin: 07/20/17 16:43 Dose: 100 mls/hr Vancomycin HCl 1 gm/ Dextrose 250 mls @ 165 mls/hr IV Q36H [facility] Stop: 09/18/17 01:59 Last Infusion: 07/20/17 04:00 Dose: Infused Sodium Chloride (Nacl 0.9%) 1,000 mls @ 100 mls/hr IV .Q10H [facility] Stop: 09/16/17 23:44 Last Admin: 07/20/17 02:00 Dose: 100 mls/hr Insulin Aspart (Novolog) 0 units SUBQ Q6HR [facility] PRN Reason: Protocol Stop: 09/18/17 17:59 Insulin Detemir (Levemir Insulin) 18 units SUBQ BID [facility] PRN Reason: Protocol Stop: 09/18/17 08:59 Last Admin: 07/20/17 16:44 Dose: 18 units Lactobacillus Rhamnosus (Culturelle) 1 each PO DAILY [facility] Stop: 09/18/17 08:59 Last Admin: 07/20/17 09:07 Dose: 1 each Magnesium Hydroxide (Milk Of Magnesia) 30 ml GT HS PRN PRN Reason: Constipation Stop: 09/16/17 23:47 Metoclopramide HCl (Reglan) 5 mg GT Q8H [facility] Stop: 09/16/17 23:44 Last Admin: 07/20/17 15:45 Dose: Not Given Miscellaneous (Vancomycin Iv Per Pharmacy) 1 ea MC PRN [facility] Stop: 09/16/17 23:44 Miscellaneous (Clinical Monitoring) 1 ea MC PRN PRN PRN Reason: RENAL DOSE [facility]OSYN Stop: 09/17/17 08:23 Miscellaneous (Probiotic Screen) 1 ea MC PRN PRN PRN Reason: PROTOCOL Stop: 09/17/17 10:14 Miscellaneous (Vte Chemical Prophylaxis Screen/ Admission) 1 ea MC PRN PRN PRN Reason: PROTOCOL Stop: 09/17/17 13:47 Morphine Sulfate (Morphine) 2 mg IVP Q4H PRN PRN Reason: Pain (Severe) Stop: 09/16/17 23:53 Ondansetron HCl (Zofran) 4 mg IV Q8H PRN PRN Reason: Nausea / Vomiting Stop: 09/16/17 23:54 Sodium Phosphate (Fleet Enema) 135 ml RC Q48H PRN PRN Reason: Constipation Stop: 09/16/17 23:47 Vancomycin HCl (Vancomycin Oral) 250 mg GT Q6HR [facility] Stop: 09/18/17 17:59 Last Admin: 07/20/17 17:54 Dose: 250 mg Zinc Sulfate (Zinc Sulfate) 220 mg GT DAILY [facility] Stop: 09/17/17 08:59 Last Admin: 07/20/17 09:07 Dose: 220 mg Lab - Result Diagrams 07/24/17 04:36 07/24/17 04:30 kidney fnc gradually improving replace K C02 better, dc NaHC03 drop Hgb due to hematuria CT pelvis revealed right hydronephrosis/ureter switch IVF to D5W since BS under better control & BP more stable f/u elelctrolytes, cbc Nutritional Asmnt/Malnutr-PDOC - Dietary Evaluation Malnutrition Findings (Please click <Entered> for more info): Nutritional Asmnt/Malnutrition Start: 07/19/17 17: 24 Text: Status: Complete Freq: Document 07/19/17 17:25 JEIMY (Rec: 07/19/17 17:43 [email or web address] [id number]) Nutritional Asmnt/Malnutrition Patient General Information Nutritional Screening High Risk Consult Diagnosis Sepsis, UTI Pertinent Medical Hx/Surgical Hx HTN, DM, CAD, CHF, chronic resperatory failure, anemia, PEG/Gtube, tracheostomy Subjective Information Consult received for elevated BG. Pt seen lying in bed, on vent, non verbal comminication noted. Not able to obtain nutrition hx. Spoke with RN, no nutrition plan at this time . Current Diet Order/ Nutrition Support NPO Pertinent Medications Vitamin C, novolog, cultrelle, reglan, vancomycin, , piperacillin, Nacl 0.9%, Zinc Pertinent Labs 07/19 Na 132, K 5.3, Cl 97L, BUN 137, Cr 2.7, Glu 353, POC 324-394, A1C 6.2 Nutritional Hx/Data Height 1.57 m Height (Calculated Centimeters) 157.5 Current Weight (lbs) 80.83 kg Weight (Calculated Kilograms) 80.8 Weight (Calculated Grams) 30024.2 [place] Body Weight 110 % [place] Body Weight 162 Body Mass Index (BMI) 32.5 Weight Status Obese GI Symptoms GI Symptoms None Last BM none Usual diet at home Glucerna 1.5 60ml/hr x 20hr daily at [facility] Skin Integrity/Comment: decubitus ulceration to sacrum Estimated Nutritional Goals BEE in Kcals: Adj wt of IBW Calories/Kcals/Kg 30-35 Kcals Calculated Protein: Adj wt of IBW Protein g/k.2-1.5 Protein Calculated 69-87 Fluid: ml Nutritional Problem 2. Problem Problem increased nutrition needs ( calorie and protein) Etiology increased metabolic demand for healing Signs/Symptoms: sepsis 1. Problem Problem altered nutrition related lab values Etiology hx of DM, acute renal insufficiency Signs/Symptoms: BUN 137, Cr 2.7, Glu 353, POC 324-394, A1C 6.2 Malnutrition Alert Protein-Calorie Malnutrition N/A Is there a minimum of two criteria No selected? Query Text:Check all the applicable criteria. A minimum of two criteria are recommended for diagnosis of either severe or non-severe malnutrition. Intervention/Recommendation Comments 1. Monitor NPO status. 2. If enteral feeding needed, recommend to start Diabetisource AC at 30ml/hr continuous. Increased to goal rate of 60ml/hr continuous as tolerated. This will provide 1728kcal, 86g protein and 1179ml water, meeting 100% of nutritional needs. 3. Monitor wt, labs and skin integrity 4. F/U as high risk in 2-3 days, 07/21-07/22 Expected Outcomes/Goals Expected Outcomes/Goals 1. Pt to meet at least 75% of nutritional needs in 2-3 days 2. Wt stability, skin to remain intact, labs to improve .
--- NOTE | 2017-07-24 14:04 | Internal Medicine Prog Note ---
Internal Medicine Subjective - Subjective Service Date: 07/24/17 Patient seen and examined:: with staff Patient is:: awake, non-verbal Per staff patient has:: tolerating meds Internal Medicine Objective - Results Result Diagrams: 07/24/17 04:36 07/24/17 04:30 Recent Labs: Laboratory Last Values WBC 17.4 Th/cmm (4.8-10.8) H D 07/24/17 04:36 RBC 3.21 Mil/cmm (3.80-5.10) L 07/24/17 04:36 Hgb 9.2 gm/dL (12-16) L 07/24/17 04:36 Hct 27.3 % (41.0-60) L D 07/24/17 04:36 MCV 85.0 fl (81-100) 07/24/17 04:36 MCH 28.7 pg (27.0-31.0) 07/24/17 04:36 MCHC Differential 33.7 pg (28.0-36.0) 07/24/17 04:36 RDW 13.8 % (11.5-20.0) 07/24/17 04:36 Plt Count 226 Th/cmm (150-400) 07/24/17 04:36 MPV 10.3 fl 07/24/17 04:36 Neutrophils % 77.3 % (40.0-80.0) 07/24/17 04:36 Band Neutrophils % 3 % (0-10) 07/23/17 04:33 Lymphocytes % 15.6 % (20.0-50.0) L 07/24/17 04:36 Monocytes % 4.2 % (2.0-10.0) 07/24/17 04:36 Eosinophils % 2.6 % (0.0-5.0) 07/24/17 04:36 Basophils % 0.3 % (0.0-2.0) 07/24/17 04:36 Neutrophils (Manual) 73 % (40-80) 07/23/17 04:33 Lymphocytes 14 % (20-50) L 07/23/17 04:33 Monocytes 9 % (2-10) 07/23/17 04:33 Eosinophils 1 % (0-5) 07/23/17 04:33 Hypochromia 1+ 07/18/17 22:15 Platelet Estimate ADEQUATE (NORMAL) 07/23/17 04:33 Polychromasia 1+ 07/18/17 22:15 Smear Path Review YES 07/18/17 22:15 Eos Smear Source URINE 07/19/17 22:30 Eos Smear Total Cells NONE SEEN (NONE SEEN) 07/19/17 22:30 Sodium 149 mEq/L (136-145) H 07/24/17 04:30 Potassium 3.9 mEq/L (3.5-5.1) 07/24/17 04:30 Chloride 118 mEq/L (98-107) H 07/24/17 04:30 Carbon Dioxide 25.3 mEq/L (21.0-31.0) 07/24/17 04:30 Anion Gap 9.6 (7.0-16.0) 07/24/17 04:30 BUN 49 mg/dL (7-25) H 07/24/17 04:30 Creatinine 0.9 mg/dL (0.6-1.2) 07/24/17 04:30 Est GFR ( Amer) > 60.0 ml/min (>90) 07/24/17 04:30 Est GFR (Non-Af Amer) > 60.0 ml/min 07/24/17 04:30 BUN/Creatinine Ratio 54.4 07/24/17 04:30 Glucose 110 mg/dL (70-105) H 07/24/17 04:30 POC Glucose 134 MG/DL (70 - 105) H 07/24/17 12:44 Hemoglobin A1c % 6.2 % (4.0-6.0) H 07/18/17 23:30 Plasma/Ser Osmolality 344 mOsmol/kg (280-301) H 07/19/17 23:30 Whole Bld Lactic Acid 0.61 mmol/L (0.60-1.99) 07/20/17 04:10 Uric Acid 9.5 mg/dL (2.3-6.6) H 07/20/17 04:10 Calcium 8.1 mg/dL (8.6-10.3) L 07/24/17 04:30 Phosphorus 4.5 mg/dL (2.5-5.0) 07/20/17 04:10 Magnesium 1.9 mg/dL (1.9-2.7) 07/24/17 04:30 Total Bilirubin 0.3 mg/dL (0.3-1.0) 07/20/17 04:10 AST 8 U/L (13-39) L 07/20/17 04:10 ALT 14 U/L (7-52) 07/20/17 04:10 Alkaline Phosphatase 87 U/L (34-104) 07/20/17 04:10 Ammonia 51 umol/L (16-53) 07/23/17 04:33 Creatine Kinase 26 U/L (30-223) L 07/18/17 22:15 Troponin I 0.27 ng/mL (0.01-0.05) H* 07/18/17 22:15 B-Natriuretic Peptide 775.0 pg/mL (5.0-100.0) H 07/23/17 04:33 Total Protein 6.6 gm/dL (6.0-8.3) 07/20/17 04:10 Albumin 2.7 gm/dL (3.7-5.3) L 07/20/17 04:10 Globulin 3.9 gm/dL 07/20/17 04:10 Albumin/Globulin Ratio 0.7 (1.0-1.8) L 07/20/17 04:10 TSH 2.30 uIU/ml (0.34-5.60) 07/19/17 04:15 Urine Source [place] 07/18/17 21:30 Urine Color RED 07/18/17 21:30 Urine Clarity CLOUDY (CLEAR) H 07/18/17 21:30 Urine pH 7.5 (4.6 - 8.0) 07/18/17 21:30 Ur Specific [place] 1.025 (1.005-1.030) 07/18/17 21:30 Urine Protein >=300 mg/dL (NEGATIVE) 07/18/17 21:30 Urine Glucose (UA) NEGATIVE mg/dL (NEGATIVE) 07/18/17 21:30 Urine Ketones NEGATIVE mg/dL (NEGATIVE) 07/18/17 21:30 Urine Blood LARGE (NEGATIVE) H 07/18/17 21:30 Urine Nitrate NEGATIVE (NEGATIVE) 07/18/17 21:30 Urine Bilirubin NEGATIVE (NEGATIVE) 07/18/17 21:30 Urine Urobilinogen 0.2 E.U./dL (0.2 - 1.0) 07/18/17 21:30 Ur Leukocyte Esterase SMALL (NEGATIVE) H 07/18/17 21:30 Urine RBC 50-100 /hpf (0-5) H 07/18/17 21:30 Urine WBC 6-10 /hpf (0-5) H 07/18/17 21:30 Ur Epithelial Cells FEW /lpf (FEW) 07/18/17 21:30 Urine Bacteria MANY /hpf (NONE SEEN) 07/18/17 21:30 Ur Random Sodium 28 mmol/L 07/19/17 22:30 Urine Creatinine 26.3 mg/dl (Not Estab.) 07/19/17 22:30 Urine Microalbumin 2398.5 ug/mL (Not Estab.) 07/19/17 22:30 Microalb/Creat Ratio 9119.8 07/19/17 22:30 Stool Occult Blood NEGATIVE (NEGATIVE) 07/24/17 03:37 Random Vancomycin 26.6 ug/mL (5.0-40.0) 07/24/17 04:30 Blood Type O NEGATIVE 07/20/17 08:15 Antibody Screen NEGATIVE 07/20/17 08:15 - Physical Exam Vitals and I&O: Vital Signs Temp 98.0 F 07/24/17 08:00 Pulse 65 07/24/17 13:18 Resp 17 07/24/17 11:00 BP 144/31 07/24/17 11:00 Pulse Ox 100 07/24/17 13:18 Intake & Output 07/23/17 07/24/17 07/24/17 18:59 06:59 18:59 Intake Total 1860 1910 50 Output Total 1325 1050 Balance 535 860 50 Weight (lbs) 150 lb 155 lb Intake: Intake, IV Amount 1100 1050 50 0.45% NS w/20 mEq KCl 1, 1000 1000 000 ml @ 100 mls/hr IV . Q10H [facility] Rx#:[id number] Piperacillin Sodium/ 100 50 50 Tazobact 2.25 gm In Dextrose 5% 50 ml @ 100 mls/hr IV Q8H [facility] Rx#: [id number] Tube Feeding 560 560 Other 200 300 Output: Urine 1325 1050 Other: # Bowel Movements 1 Stool Characteristics Soft Formed Brown Active Medications: Current Medications Acetaminophen (Tylenol 650mg/20.3ml Suspension) 650 mg GT Q4H PRN PRN Reason: Pain or Fever >101 Stop: 09/16/17 23:47 Last Admin: 07/22/17 00:35 Dose: 650 mg Albuterol/Ipratropium (Duoneb Neb) 3 ml HHN Q6HRT [facility] Stop: 09/17/17 12:59 Last Admin: 07/24/17 13:17 Dose: 3 ml Albuterol/Ipratropium (Duoneb Neb) 3 ml HHN Q2HR PRN PRN Reason: Shortness of Breath Stop: 09/16/17 23:47 Ascorbic Acid (Vitamin C) 500 mg GT DAILY [facility] Stop: 09/17/17 08:59 Last Admin: 07/24/17 09:07 Dose: 500 mg Bisacodyl (Dulcolax 10 Mg Supp) 10 mg RC DAILY PRN PRN Reason: constip Stop: 09/16/17 23:47 Carvedilol (Coreg) 3.125 mg GT BID [facility] Stop: 09/17/17 08:59 Last Admin: 07/24/17 09:07 Dose: 3.125 mg Chlorhexidine Gluconate (Peridex) 15 ml MM 08,1999 [facility] Stop: 09/17/17 07:59 Last Admin: 07/24/17 09:07 Dose: 15 ml Docusate Sodium (Colace) 100 mg GT BID PRN PRN Reason: Constipation Famotidine (Pepcid) 20 mg GT Q12H [facility] Stop: 09/16/17 23:44 Last Admin: 07/24/17 12:50 Dose: 20 mg Guaifenesin (Robitussin) 200 mg PO Q4HR PRN PRN Reason: Cough or Congestion Stop: 09/16/17 23:54 Heparin Sodium (Porcine) (Heparin) 5,000 units SUBQ Q12HR [facility] Stop: 09/17/17 08:59 Last Admin: 07/24/17 09:07 Dose: 5,000 units Piperacillin Sod/Tazobactam (Sod 2.25 gm/ Dextrose) 50 mls @ 100 mls/hr IV Q8H [facility] Stop: 09/17/17 16:59 Last Infusion: 07/24/17 10:00 Dose: Infused Vancomycin HCl 1 gm/ Sodium (Chloride) 250 mls @ 165 mls/hr IV Q24H [facility] Stop: 09/22/17 15:59 Dextrose (D5w) 1,000 mls @ 100 mls/hr IV .Q10H [facility] Stop: 09/22/17 13:49 Insulin Aspart (Novolog) 0 units SUBQ Q6HR [facility] PRN Reason: Protocol Stop: 09/18/17 17:59 Last Admin: 07/24/17 12:47 Dose: Not Given Insulin Detemir (Levemir Insulin) 24 units SUBQ BID [facility] PRN Reason: Protocol Stop: 09/20/17 08:59 Last Admin: 07/24/17 09:22 Dose: 24 units Magnesium Hydroxide (Milk Of Magnesia) 30 ml GT HS PRN PRN Reason: Constipation Stop: 09/16/17 23:47 Metoclopramide HCl (Reglan) 10 mg GT Q8H [facility] Stop: 09/20/17 13:01 Last Admin: 07/24/17 12:46 Dose: 10 mg Miscellaneous (Vancomycin Iv Per Pharmacy) 1 ea PRN [facility] Stop: 09/16/17 23:44 Miscellaneous (Clinical Monitoring) 1 ea PRN PRN PRN Reason: RENAL DOSE ZOSYN Stop: 09/17/17 08:23 Miscellaneous (Probiotic Screen) 1 ea PRN PRN PRN Reason: PROTOCOL Stop: 09/17/17 10:14 Miscellaneous (Vte Chemical Prophylaxis Screen/ Admission) 1 ea PRN PRN PRN Reason: PROTOCOL Stop: 09/17/17 13:47 Morphine Sulfate (Morphine) 2 mg IVP Q4H PRN PRN Reason: Pain (Severe) Stop: 09/16/17 23:53 Last Admin: 07/23/17 17:38 Dose: 2 mg Ondansetron HCl (Zofran) 4 mg IV Q8H PRN PRN Reason: Nausea / Vomiting Stop: 09/16/17 23:54 Last Admin: 07/21/17 18:48 Dose: 4 mg Potassium Chloride (Potassium Chloride Elixir) 20 meq GT BID [facility] Stop: 08/01/17 17:01 Last Admin: 07/24/17 09:08 Dose: 20 meq Sodium Phosphate (Fleet Enema) 135 ml RC Q48H PRN PRN Reason: Constipation Stop: 09/16/17 23:47 Vancomycin HCl (Vancomycin Oral) 250 mg GT Q6HR [facility] Stop: 09/18/17 17:59 Last Admin: 07/24/17 12:46 Dose: 250 mg Zinc Sulfate (Zinc Sulfate) 220 mg GT DAILY [facility] Stop: 09/17/17 08:59 Last Admin: 07/24/17 09:07 Dose: 220 mg General: weak, obtunded HEENT: NC/AT, PERRLA Neck: Supple Lungs: ronchi Cardiovascular: RRR, without murmur Abdomen: soft, non-tender, non-distended, +GT, positive bowel sound Extremities: excoriation Neurological: bedbound - Procedures Procedures: Procedures Procedure Code Date RESPIRATORY VENTILATION, 24-96 CONSECUTIVE HOURS [id number] 07/18/17 Internal Medicine Assmt/Plan - Assessment Assessment: sepsis chronic respiratory failure VDRF leukocytosis hematuria-improved htn dm2 cad chf anemia tracheostomy status hypokalemia acute renal insufficiency elevated troponin mild protein calorie malnutrition acute uti - Plan Plan: LTAC EVAL continue with ivabx renal follow up monitor h/h follow up labs in am vent support continue current plan of care Nutritional Asmnt/Malnutr-PDOC - Dietary Evaluation Malnutrition Findings (Please click <Entered> for more info): Nutritional Asmnt/Malnutrition Start: 07/19/17 17: 24 Text: Status: Complete Freq: Document 07/19/17 17:25 LCHENG (Rec: 07/19/17 17:43 LCHENG JANFN) Nutritional Asmnt/Malnutrition Patient General Information Nutritional Screening High Risk Consult Diagnosis Sepsis, UTI Pertinent Medical Hx/Surgical Hx HTN, DM, CAD, CHF, chronic resperatory failure, anemia, PEG/Gtube, tracheostomy Subjective Information Consult received for elevated BG. Pt seen lying in bed, on vent, non verbal comminication noted. Not able to obtain nutrition hx. Spoke with RN, no nutrition plan at this time . Current Diet Order/ Nutrition Support NPO Pertinent Medications Vitamin C, novolog, cultrelle, reglan, vancomycin, , piperacillin, Nacl 0.9%, Zinc Pertinent Labs 07/19 Na 132, K 5.3, Cl 97L, BUN 137, Cr 2.7, Glu 353, POC 324-394, A1C 6.2 Nutritional Hx/Data Height 5 ft 2 in Height (Calculated Centimeters) 157.5 Current Weight (lbs) 178 lb 3.2 oz Weight (Calculated Kilograms) 80.8 Weight (Calculated Grams) 22283.2 Taylor Body Weight 110 % Taylor Body Weight 162 Body Mass Index (BMI) 32.5 Weight Status Obese GI Symptoms GI Symptoms None Last BM none Usual diet at home Glucerna 1.5 60ml/hr x 20hr daily at [facility] Skin Integrity/Comment: decubitus ulceration to sacrum Estimated Nutritional Goals BEE in Kcals: Adj wt of IBW Calories/Kcals/Kg 30-35 Kcals Calculated Protein: Adj wt of IBW Protein g/k.2-1.5 Protein Calculated 69-87 Fluid: ml Nutritional Problem 2. Problem Problem increased nutrition needs ( calorie and protein) Etiology increased metabolic demand for healing Signs/Symptoms: sepsis 1. Problem Problem altered nutrition related lab values Etiology hx of DM, acute renal insufficiency Signs/Symptoms: BUN 137, Cr 2.7, Glu 353, POC 324-394, A1C 6.2 Malnutrition Alert Protein-Calorie Malnutrition N/A Is there a minimum of two criteria No selected? Query Text:Check all the applicable criteria. A minimum of two criteria are recommended for diagnosis of either severe or non-severe malnutrition. Intervention/Recommendation Comments 1. Monitor NPO status. 2. If enteral feeding needed, recommend to start Diabetisource AC at 30ml/hr continuous. Increased to goal rate of 60ml/hr continuous as tolerated. This will provide 1728kcal, 86g protein and 1179ml water, meeting 100% of nutritional needs. 3. Monitor wt, labs and skin integrity 4. F/U as high risk in 2-3 days, 07/21-07/22 Expected Outcomes/Goals Expected Outcomes/Goals 1. Pt to meet at least 75% of nutritional needs in 2-3 days 2. Wt stability, skin to remain intact, labs to improve .
[2017-07-24] MEDS: Dextrose 5% 1,000 ML IV SCH (14:25)
--- NOTE | 2017-07-24 17:33 | Progress Notes ---
DATE: 07/24/2017 UROLOGY PROGRESS NOTE HOSPITAL COURSE: The patient is stable with no significant change except slight drop in the white count. The [place]campo is being irrigated as instructed and is becoming less concentrated and casper colored urine of about 400 mL this morning. OBJECTIVE: VITAL SIGNS: On exam, blood pressure 140/39, heart rate 65, temperature 98.2 without any fever in the last 24 hours and saturating 100% on the ventilator. ABDOMEN: Soft with a G-tube, tolerating feeds without any residual volume increase. No tenderness. No rebound or guarding. Bladder decompressed. EXTREMITIES: 1+ edema. LABORATORY DATA: White count 17.4, potassium 3.9 and magnesium 1.9. IMPRESSION: 1. Urinary tract infection with hematuria and right hydronephrosis, all related to neurogenic bladder, most likely pending cystoscopy at some point in the future. Continue local irrigation for infection control and Ocampo catheter for keeping the bladder empty and protecting renal function. However, Ocampo catheter care is of paramount importance and should be carried out as instructed, so that it does not get contaminated and is changed and irrigated frequently. 2. Diabetes. 3. Multiple sclerosis. 4. Congestive heart failure. 5. Coronary artery disease. 6. Dementia. 7. Tracheostomy status and respiratory failure. 8. G-tube need. JOB# [id number]
--- NOTE | 2017-07-24 22:32 | Progress Notes ---
DATE: 07/24/2017 PULMONARY PROGRESS NOTE This is on behalf of Dr. Boland. PROBLEM LIST: 1. Ventilator dependent. 2. Septicemia. 3. Significant anasarca. SYMPTOMS: Nil. Offers no specific new symptoms. Sleepy, arousable. No respiratory distress. Still currently on a vent. PHYSICAL EXAMINATION: VITAL SIGNS: Temperature 97.7, blood pressure 136/76, and saturation 100% on 35% of oxygen. NECK: Veins not visualized. CHEST: Shows diminished air entry with occasional rhonchi. HEART: Regular. ABDOMEN: Soft, nontender. LABORATORY DATA: The patient's white count is 17.4, hemoglobin 9.2 and sugar is borderline high. Random vancomycin is 26. ASSESSMENT: The patient clinically appears to be reasonably stable, not much changed. PLANS AND SUGGESTIONS: We will go ahead and continue current treatment. We will go ahead and order some more testing for tomorrow including chest x-ray and see what it is and then go from there. JOB# [id number]
[2017-07-24] MEDS: Morphine Sulfate 2 mg/mL 1mL Syr IVP PRN (23:27)
[2017-07-25] MEDS: Albuterol/Ipratropium Neb 3 ML AERS HHN SCH ×4 (00:41→19:38)
[2017-07-25] MEDS: Dextrose 5% 1,000 ML IV SCH ×3 (02:15→14:00)
[2017-07-25] MEDS: Vancomycin HCL 250 mg /10mL UDC GT SCH ×3 (05:33→17:30)
[2017-07-25] MEDS: INSULIN ASPART, RECOMBINANT 100 UNITS/ML SUBQ SCH ×3 (05:49→17:26)
[2017-07-25 05:59] LABS: % EOSINOPHILS 2.8 % (0.0-5.0); % LYMPHOCYTES 21.5 % (20.0-50.0); % MONOCYTES 3.4 % (2.0-10.0); % NEUTROPHILS 72.3 % (40.0-80.0); EOSINOPHILE ABSOLUTE 0.5 Th/cmm (0.1-0.4); HEMATOCRIT 26.6 % (41.0-60); HEMOGLOBIN 8.7 gm/dL (12-16); LYMPHOCYTE ABSOLUTE 4.1 Th/cmm (1.5-3.0); MEAN CELL VOLUME 85.6 fl (81-100); MEAN CORPUSCULAR HEMOGLOBIN 28.1 pg (27.0-31.0); MEAN CORPUSCULAR HGB CONC 32.8 pg (28.0-36.0); MEAN PLATELET VOLUME 10.7 fl; MONOCYTE ABSOLUTE 0.6 Th/cmm (0.3-1.0); NEUTROPHILE ABSOLUTE 13.7 Th/cmm (1.8-8.0); PLATELET COUNT 262 Th/cmm (150-400); RED CELL DISTRIBUTION WIDTH 13.7 % (11.5-20.0)
[2017-07-25 06:19] LABS: ANION GAP 10.1 (7.0-16.0); BUN - UREA NITROGEN 41 mg/dL (7-25); CARBON DIOXIDE 24.1 mEq/L (21.0-31.0); CHLORIDE 110 mEq/L (98-107); CREATININE - SERUM 0.9 mg/dL (0.6-1.2); GFR AFRICAN-AMERICAN > 60.0 ml/min (>90); GFR NON AFRICAN-AMERICAN > 60.0 ml/min; GLUCOSE 182 mg/dL (70-105); POTASSIUM SERUM 4.2 mEq/L (3.5-5.1); SODIUM SERUM 140 mEq/L (136-145)
[2017-07-25 06:35] LABS: WHITE BLOOD COUNT 18.9 Th/cmm (4.8-10.8)
[2017-07-25] MEDS: Insulin Detemir 100 units/mL 10mL Vial SUBQ SCH ×2 (09:35→17:24)
[2017-07-25] MEDS: Potassium Chloride Elixir 20 mEq /15 mL UDC GT SCH ×2 (09:40→16:53)
[2017-07-25] MEDS: Multivitamin w/ Minerals Tab GT SCH (09:40)
--- NOTE | 2017-07-25 09:46 | Diagnostic Imaging Report ---
CHEST X-RAY: AP view INDICATION: Infiltrates COMPARISON: 07/18/2017 FINDINGS: Tracheostomy tube is noted. External material is seen overlying the left hemithorax. No focal consolidation identified. Increased left basal lung markings are noted. Borderline prominent heart is noted with atherosclerosis. IMPRESSION: Increased left basal lung markings favoring atelectatic changes. Faint infiltrate is considered less likely. No focal consolidation identified Borderline cardiomegaly with atherosclerosis.
[2017-07-25] MEDS: Chlorhexidine Gluconate 0.12% 15mL Mouthwash MM SCH ×2 (10:01→20:20)
--- NOTE | 2017-07-25 11:39 | Internal Medicine Prog Note ---
Internal Medicine Subjective - Subjective Service Date: 07/25/17 Patient seen and examined:: with staff Patient is:: awake, non-verbal Per staff patient has:: tolerating meds Internal Medicine Objective - Results Result Diagrams: 07/25/17 05:13 07/25/17 05:13 Recent Labs: Laboratory Last Values WBC 18.9 Th/cmm (4.8-10.8) H 07/25/17 05:13 RBC 3.10 Mil/cmm (3.80-5.10) L 07/25/17 05:13 Hgb 8.7 gm/dL (12-16) L 07/25/17 05:13 Hct 26.6 % (41.0-60) L 07/25/17 05:13 MCV 85.6 fl (81-100) 07/25/17 05:13 MCH 28.1 pg (27.0-31.0) 07/25/17 05:13 MCHC Differential 32.8 pg (28.0-36.0) 07/25/17 05:13 RDW 13.7 % (11.5-20.0) 07/25/17 05:13 Plt Count 262 Th/cmm (150-400) 07/25/17 05:13 MPV 10.7 fl 07/25/17 05:13 Neutrophils % 72.3 % (40.0-80.0) 07/25/17 05:13 Band Neutrophils % 3 % (0-10) 07/23/17 04:33 Lymphocytes % 21.5 % (20.0-50.0) 07/25/17 05:13 Monocytes % 3.4 % (2.0-10.0) 07/25/17 05:13 Eosinophils % 2.8 % (0.0-5.0) 07/25/17 05:13 Basophils % 0.0 % (0.0-2.0) 07/25/17 05:13 Neutrophils (Manual) 73 % (40-80) 07/23/17 04:33 Lymphocytes 14 % (20-50) L 07/23/17 04:33 Monocytes 9 % (2-10) 07/23/17 04:33 Eosinophils 1 % (0-5) 07/23/17 04:33 Hypochromia 1+ 07/18/17 22:15 Platelet Estimate ADEQUATE (NORMAL) 07/23/17 04:33 Polychromasia 1+ 07/18/17 22:15 Smear Path Review YES 07/18/17 22:15 Eos Smear Source URINE 07/19/17 22:30 Eos Smear Total Cells NONE SEEN (NONE SEEN) 07/19/17 22:30 Sodium 140 mEq/L (136-145) 07/25/17 05:13 Potassium 4.2 mEq/L (3.5-5.1) 07/25/17 05:13 Chloride 110 mEq/L (98-107) H 07/25/17 05:13 Carbon Dioxide 24.1 mEq/L (21.0-31.0) 07/25/17 05:13 Anion Gap 10.1 (7.0-16.0) 07/25/17 05:13 BUN 41 mg/dL (7-25) H 07/25/17 05:13 Creatinine 0.9 mg/dL (0.6-1.2) 07/25/17 05:13 Est GFR ( Amer) > 60.0 ml/min (>90) 07/25/17 05:13 Est GFR (Non-Af Amer) > 60.0 ml/min 07/25/17 05:13 BUN/Creatinine Ratio 45.6 07/25/17 05:13 Glucose 182 mg/dL (70-105) H 07/25/17 05:13 POC Glucose 195 MG/DL (70 - 105) H 07/25/17 09:33 Hemoglobin A1c % 6.2 % (4.0-6.0) H 07/18/17 23:30 Plasma/Ser Osmolality 344 mOsmol/kg (280-301) H 07/19/17 23:30 Whole Bld Lactic Acid 0.61 mmol/L (0.60-1.99) 07/20/17 04:10 Uric Acid 9.5 mg/dL (2.3-6.6) H 07/20/17 04:10 Calcium 8.0 mg/dL (8.6-10.3) L 07/25/17 05:13 Phosphorus 4.5 mg/dL (2.5-5.0) 07/20/17 04:10 Magnesium 1.9 mg/dL (1.9-2.7) 07/24/17 04:30 Total Bilirubin 0.3 mg/dL (0.3-1.0) 07/20/17 04:10 AST 8 U/L (13-39) L 07/20/17 04:10 ALT 14 U/L (7-52) 07/20/17 04:10 Alkaline Phosphatase 87 U/L (34-104) 07/20/17 04:10 Ammonia 46 umol/L (16-53) 07/25/17 06:13 Creatine Kinase 26 U/L (30-223) L 07/18/17 22:15 Troponin I 0.27 ng/mL (0.01-0.05) H* 07/18/17 22:15 B-Natriuretic Peptide 775.0 pg/mL (5.0-100.0) H 07/23/17 04:33 Total Protein 6.6 gm/dL (6.0-8.3) 07/20/17 04:10 Albumin 2.7 gm/dL (3.7-5.3) L 07/20/17 04:10 Globulin 3.9 gm/dL 07/20/17 04:10 Albumin/Globulin Ratio 0.7 (1.0-1.8) L 07/20/17 04:10 TSH 2.30 uIU/ml (0.34-5.60) 07/19/17 04:15 Urine Source [place] 07/18/17 21:30 Urine Color RED 07/18/17 21:30 Urine Clarity CLOUDY (CLEAR) H 07/18/17 21:30 Urine pH 7.5 (4.6 - 8.0) 07/18/17 21:30 Ur Specific [place] 1.025 (1.005-1.030) 07/18/17 21:30 Urine Protein >=300 mg/dL (NEGATIVE) 07/18/17 21:30 Urine Glucose (UA) NEGATIVE mg/dL (NEGATIVE) 07/18/17 21:30 Urine Ketones NEGATIVE mg/dL (NEGATIVE) 07/18/17 21:30 Urine Blood LARGE (NEGATIVE) H 07/18/17 21:30 Urine Nitrate NEGATIVE (NEGATIVE) 07/18/17 21:30 Urine Bilirubin NEGATIVE (NEGATIVE) 07/18/17 21:30 Urine Urobilinogen 0.2 E.U./dL (0.2 - 1.0) 07/18/17 21:30 Ur Leukocyte Esterase SMALL (NEGATIVE) H 07/18/17 21:30 Urine RBC 50-100 /hpf (0-5) H 07/18/17 21:30 Urine WBC 6-10 /hpf (0-5) H 07/18/17 21:30 Ur Epithelial Cells FEW /lpf (FEW) 07/18/17 21:30 Urine Bacteria MANY /hpf (NONE SEEN) 07/18/17 21:30 Ur Random Sodium 28 mmol/L 07/19/17 22:30 Urine Creatinine 26.3 mg/dl (Not Estab.) 07/19/17 22:30 Urine Microalbumin 2398.5 ug/mL (Not Estab.) 07/19/17 22:30 Microalb/Creat Ratio 9119.8 07/19/17 22:30 Stool Occult Blood NEGATIVE (NEGATIVE) 07/24/17 03:37 Random Vancomycin 26.6 ug/mL (5.0-40.0) 07/24/17 04:30 Blood Type O NEGATIVE 07/20/17 08:15 Antibody Screen NEGATIVE 07/20/17 08:15 - Physical Exam Vitals and I&O: Vital Signs Temp 97.5 F 07/25/17 04:00 Pulse 68 07/25/17 11:12 Resp 16 07/25/17 06:00 BP 140/50 07/25/17 09:40 Pulse Ox 100 07/25/17 11:12 Intake & Output 07/24/17 07/25/17 07/25/17 18:59 06:59 18:59 Intake Total 100 3235 Output Total 1600 Balance 100 1635 Weight (lbs) 158 lb Intake: Intake, IV Amount 100 1675 Dextrose 5% 1,000 ml @ 1375 100 mls/hr IV .Q10H [facility] Rx#:[id number] Piperacillin Sodium/ 100 50 Tazobact 2.25 gm In Dextrose 5% 50 ml @ 100 mls/hr IV Q8H [facility] Rx#: [id number] Vancomycin HCl 1 gm In 250 Dextrose 5% 250 ml @ 165 mls/hr IV Q24H [facility] Rx#: [id number] Oral 0 Tube Feeding 960 Other 600 Output: Urine 1600 Other: # Bowel Movements 1 Stool Characteristics Liquid Soft Brown Brown Active Medications: Current Medications Acetaminophen (Tylenol 650mg/20.3ml Suspension) 650 mg GT Q4H PRN PRN Reason: Pain or Fever >101 Stop: 09/16/17 23:47 Last Admin: 07/22/17 00:35 Dose: 650 mg Albuterol/Ipratropium (Duoneb Neb) 3 ml HHN Q6HRT [facility] Stop: 09/17/17 12:59 Last Admin: 07/25/17 06:45 Dose: 3 ml Albuterol/Ipratropium (Duoneb Neb) 3 ml HHN Q2HR PRN PRN Reason: Shortness of Breath Stop: 09/16/17 23:47 Ascorbic Acid (Vitamin C) 500 mg GT DAILY [facility] Stop: 09/17/17 08:59 Last Admin: 07/25/17 09:40 Dose: 500 mg Bisacodyl (Dulcolax 10 Mg Supp) 10 mg RC DAILY PRN PRN Reason: constip Stop: 09/16/17 23:47 Carvedilol (Coreg) 3.125 mg GT BID [facility] Stop: 09/17/17 08:59 Last Admin: 07/25/17 09:40 Dose: 3.125 mg Chlorhexidine Gluconate (Peridex) 15 ml MM 0800,1999 [facility] Stop: 09/17/17 07:59 Last Admin: 07/25/17 10:01 Dose: 15 ml Docusate Sodium (Colace) 100 mg GT BID PRN PRN Reason: Constipation Famotidine (Pepcid) 20 mg GT Q12H [facility] Stop: 09/16/17 23:44 Last Admin: 07/24/17 23:10 Dose: 20 mg Guaifenesin (Robitussin) 200 mg PO Q4HR PRN PRN Reason: Cough or Congestion Stop: 09/16/17 23:54 Heparin Sodium (Porcine) (Heparin) 5,000 units SUBQ Q12HR [facility] Stop: 09/17/17 08:59 Last Admin: 07/25/17 09:57 Dose: 5,000 units Piperacillin Sod/Tazobactam (Sod 2.25 gm/ Dextrose) 50 mls @ 100 mls/hr IV Q8H [facility] Stop: 09/17/17 16:59 Last Infusion: 07/25/17 02:05 Dose: Infused Vancomycin HCl 1 gm/ Dextrose 250 mls @ 165 mls/hr IV Q24H [facility] Stop: 09/22/17 15:59 Last Infusion: 07/24/17 19:44 Dose: Infused Dextrose (D5w) 1,000 mls @ 100 mls/hr IV .Q10H [facility] Stop: 09/22/17 13:49 Last Infusion: 07/25/17 06:00 Dose: 100 mls/hr Insulin Aspart (Novolog) 0 units SUBQ Q6HR [facility] PRN Reason: Protocol Stop: 09/18/17 17:59 Last Admin: 07/25/17 05:49 Dose: 3 units Insulin Detemir (Levemir Insulin) 24 units SUBQ BID [facility] PRN Reason: Protocol Stop: 09/20/17 08:59 Last Admin: 07/25/17 09:35 Dose: 24 units Magnesium Hydroxide (Milk Of Magnesia) 30 ml GT HS PRN PRN Reason: Constipation Stop: 09/16/17 23:47 Metoclopramide HCl (Reglan) 10 mg GT Q8H [facility] Stop: 09/20/17 13:01 Last Admin: 07/25/17 05:33 Dose: 10 mg Miscellaneous (Vancomycin Iv Per Pharmacy) 1 ea MC PRN [facility] Stop: 09/16/17 23:44 Miscellaneous (Clinical Monitoring) 1 ea MC PRN PRN PRN Reason: RENAL DOSE ZOSYN Stop: 09/17/17 08:23 Miscellaneous (Probiotic Screen) 1 ea MC PRN PRN PRN Reason: PROTOCOL Stop: 09/17/17 10:14 Miscellaneous (Vte Chemical Prophylaxis Screen/ Admission) 1 ea MC PRN PRN PRN Reason: PROTOCOL Stop: 09/17/17 13:47 Morphine Sulfate (Morphine) 2 mg IVP Q4H PRN PRN Reason: Pain (Severe) Stop: 09/16/17 23:53 Last Admin: 07/24/17 23:27 Dose: 2 mg Ondansetron HCl (Zofran) 4 mg IV Q8H PRN PRN Reason: Nausea / Vomiting Stop: 09/16/17 23:54 Last Admin: 07/21/17 18:48 Dose: 4 mg Potassium Chloride (Potassium Chloride Elixir) 20 meq GT BID [facility] Stop: 08/01/17 17:01 Last Admin: 07/25/17 09:40 Dose: 20 meq Sodium Phosphate (Fleet Enema) 135 ml RC Q48H PRN PRN Reason: Constipation Stop: 09/16/17 23:47 Vancomycin HCl (Vancomycin Oral) 250 mg GT Q6HR [facility] Stop: 09/18/17 17:59 Last Admin: 07/25/17 05:33 Dose: 250 mg Zinc Sulfate (Zinc Sulfate) 220 mg GT DAILY [facility] Stop: 09/17/17 08:59 Last Admin: 07/25/17 09:39 Dose: 220 mg General: weak, obtunded HEENT: NC/AT, PERRLA Neck: Supple Lungs: ronchi Cardiovascular: RRR, without murmur Abdomen: soft, non-tender, non-distended, +GT, positive bowel sound Extremities: excoriation Neurological: bedbound - Procedures Procedures: Procedures Procedure Code Date RESPIRATORY VENTILATION, 24-96 CONSECUTIVE HOURS [id number] 07/18/17 Internal Medicine Assmt/Plan - Assessment Assessment: sepsis cdiff chronic respiratory failure VDRF leukocytosis hematuria-improved htn dm2 cad chf anemia tracheostomy status hypokalemia acute renal insufficiency elevated troponin mild protein calorie malnutrition acute uti - Plan Plan: LTAC EVAL contact isolation continue with ivabx renal follow up monitor h/h follow up labs in am vent support continue current plan of care Nutritional Asmnt/Malnutr-PDOC - Dietary Evaluation Malnutrition Findings (Please click <Entered> for more info): Nutritional Asmnt/Malnutrition Start: 07/19/17 17: 24 Text: Status: Complete Freq: Document 07/19/17 17:25 LCHENG (Rec: 07/19/17 17:43 LCHENG [email or web address]) Nutritional Asmnt/Malnutrition Patient General Information Nutritional Screening High Risk Consult Diagnosis Sepsis, UTI Pertinent Medical Hx/Surgical Hx HTN, DM, CAD, CHF, chronic resperatory failure, anemia, PEG/Gtube, tracheostomy Subjective Information Consult received for elevated BG. Pt seen lying in bed, on vent, non verbal comminication noted. Not able to obtain nutrition hx. Spoke with RN, no nutrition plan at this time . Current Diet Order/ Nutrition Support NPO Pertinent Medications Vitamin C, novolog, cultrelle, reglan, vancomycin, , piperacillin, Nacl 0.9%, Zinc Pertinent Labs 07/19 Na 132, K 5.3, Cl 97L, BUN 137, Cr 2.7, Glu 353, POC 324-394, A1C 6.2 Nutritional Hx/Data Height 5 ft 2 in Height (Calculated Centimeters) 157.5 Current Weight (lbs) 178 lb 3.2 oz Weight (Calculated Kilograms) 80.8 Weight (Calculated Grams) 37435.2 Porter Body Weight 110 % Porter Body Weight 162 Body Mass Index (BMI) 32.5 Weight Status Obese GI Symptoms GI Symptoms None Last BM none Usual diet at home Glucerna 1.5 60ml/hr x 20hr daily at [facility] Skin Integrity/Comment: decubitus ulceration to sacrum Estimated Nutritional Goals BEE in Kcals: Adj wt of IBW Calories/Kcals/Kg 30-35 Kcals Calculated Protein: Adj wt of IBW Protein g/k.2-1.5 Protein Calculated 69-87 Fluid: ml Nutritional Problem 2. Problem Problem increased nutrition needs ( calorie and protein) Etiology increased metabolic demand for healing Signs/Symptoms: sepsis 1. Problem Problem altered nutrition related lab values Etiology hx of DM, acute renal insufficiency Signs/Symptoms: BUN 137, Cr 2.7, Glu 353, POC 324-394, A1C 6.2 Malnutrition Alert Protein-Calorie Malnutrition N/A Is there a minimum of two criteria No selected? Query Text:Check all the applicable criteria. A minimum of two criteria are recommended for diagnosis of either severe or non-severe malnutrition. Intervention/Recommendation Comments 1. Monitor NPO status. 2. If enteral feeding needed, recommend to start Diabetisource AC at 30ml/hr continuous. Increased to goal rate of 60ml/hr continuous as tolerated. This will provide 1728kcal, 86g protein and 1179ml water, meeting 100% of nutritional needs. 3. Monitor wt, labs and skin integrity 4. F/U as high risk in 2-3 days, 07/21-07/22 Expected Outcomes/Goals Expected Outcomes/Goals 1. Pt to meet at least 75% of nutritional needs in 2-3 days 2. Wt stability, skin to remain intact, labs to improve .
[2017-07-25 14:38] LABS: pH 7.48 (7.35-7.45)
[2017-07-25 14:40] LABS: ALLEN TEST Positive
--- NOTE | 2017-07-25 15:08 | General Progress Note ---
Subjective - Review of Systems Service Date: 07/25/17 Subjective: awake, comfortable, on vent Objective - Results Result Diagrams: 07/25/17 05:13 07/25/17 05:13 Recent Labs: Laboratory Last Values WBC 18.9 Th/cmm (4.8-10.8) H 07/25/17 05:13 RBC 3.10 Mil/cmm (3.80-5.10) L 07/25/17 05:13 Hgb 8.7 gm/dL (12-16) L 07/25/17 05:13 Hct 26.6 % (41.0-60) L 07/25/17 05:13 MCV 85.6 fl (81-100) 07/25/17 05:13 MCH 28.1 pg (27.0-31.0) 07/25/17 05:13 MCHC Differential 32.8 pg (28.0-36.0) 07/25/17 05:13 RDW 13.7 % (11.5-20.0) 07/25/17 05:13 Plt Count 262 Th/cmm (150-400) 07/25/17 05:13 MPV 10.7 fl 07/25/17 05:13 Neutrophils % 72.3 % (40.0-80.0) 07/25/17 05:13 Band Neutrophils % 3 % (0-10) 07/23/17 04:33 Lymphocytes % 21.5 % (20.0-50.0) 07/25/17 05:13 Monocytes % 3.4 % (2.0-10.0) 07/25/17 05:13 Eosinophils % 2.8 % (0.0-5.0) 07/25/17 05:13 Basophils % 0.0 % (0.0-2.0) 07/25/17 05:13 Neutrophils (Manual) 73 % (40-80) 07/23/17 04:33 Lymphocytes 14 % (20-50) L 07/23/17 04:33 Monocytes 9 % (2-10) 07/23/17 04:33 Eosinophils 1 % (0-5) 07/23/17 04:33 Hypochromia 1+ 07/18/17 22:15 Platelet Estimate ADEQUATE (NORMAL) 07/23/17 04:33 Polychromasia 1+ 07/18/17 22:15 Smear Path Review YES 07/18/17 22:15 Eos Smear Source URINE 07/19/17 22:30 Eos Smear Total Cells NONE SEEN (NONE SEEN) 07/19/17 22:30 Specimen Source Arterial 07/25/17 14:15 Sample Site RIGHT BRACHIAL 07/25/17 14:15 pH 7.48 (7.35-7.45) H 07/25/17 14:15 pCO2 33.0 mmHg (35.0-45.0) L 07/25/17 14:15 pO2 144.0 mmHg (80.0-100.0) H 07/25/17 14:15 HCO3 26.1 mEq/L (20.0-26.0) H 07/25/17 14:15 Base Excess 1.5 mEq/L (-3.0-3.0) 07/25/17 14:15 O2 Saturation 99.0 % (92.0-100.0) 07/25/17 14:15 Cricket Test Positive 07/25/17 14:15 Vent Rate 12 07/25/17 14:15 Inspired O2 35 07/25/17 14:15 Tidal Volume 500 07/25/17 14:15 PEEP 5 07/25/17 14:15 Pressure (ins/psv/peep) N/A 07/25/17 14:15 Critical Value HSTEHNO 07/25/17 14:15 Sodium 140 mEq/L (136-145) 07/25/17 05:13 Potassium 4.2 mEq/L (3.5-5.1) 07/25/17 05:13 Chloride 110 mEq/L (98-107) H 07/25/17 05:13 Carbon Dioxide 24.1 mEq/L (21.0-31.0) 07/25/17 05:13 Anion Gap 10.1 (7.0-16.0) 07/25/17 05:13 BUN 41 mg/dL (7-25) H 07/25/17 05:13 Creatinine 0.9 mg/dL (0.6-1.2) 07/25/17 05:13 Est GFR ( Amer) > 60.0 ml/min (>90) 07/25/17 05:13 Est GFR (Non-Af Amer) > 60.0 ml/min 07/25/17 05:13 BUN/Creatinine Ratio 45.6 07/25/17 05:13 Glucose 182 mg/dL (70-105) H 07/25/17 05:13 POC Glucose 235 MG/DL (70 - 105) H 07/25/17 12:41 Hemoglobin A1c % 6.2 % (4.0-6.0) H 07/18/17 23:30 Plasma/Ser Osmolality 344 mOsmol/kg (280-301) H 07/19/17 23:30 Whole Bld Lactic Acid 0.61 mmol/L (0.60-1.99) 07/20/17 04:10 Uric Acid 9.5 mg/dL (2.3-6.6) H 07/20/17 04:10 Calcium 8.0 mg/dL (8.6-10.3) L 07/25/17 05:13 Phosphorus 4.5 mg/dL (2.5-5.0) 07/20/17 04:10 Magnesium 1.9 mg/dL (1.9-2.7) 07/24/17 04:30 Total Bilirubin 0.3 mg/dL (0.3-1.0) 07/20/17 04:10 AST 8 U/L (13-39) L 07/20/17 04:10 ALT 14 U/L (7-52) 07/20/17 04:10 Alkaline Phosphatase 87 U/L (34-104) 07/20/17 04:10 Ammonia 46 umol/L (16-53) 07/25/17 06:13 Creatine Kinase 26 U/L (30-223) L 07/18/17 22:15 Troponin I 0.27 ng/mL (0.01-0.05) H* 07/18/17 22:15 B-Natriuretic Peptide 775.0 pg/mL (5.0-100.0) H 07/23/17 04:33 Total Protein 6.6 gm/dL (6.0-8.3) 07/20/17 04:10 Albumin 2.7 gm/dL (3.7-5.3) L 07/20/17 04:10 Globulin 3.9 gm/dL 07/20/17 04:10 Albumin/Globulin Ratio 0.7 (1.0-1.8) L 07/20/17 04:10 TSH 2.30 uIU/ml (0.34-5.60) 07/19/17 04:15 Urine Source [place] 07/18/17 21:30 Urine Color RED 07/18/17 21:30 Urine Clarity CLOUDY (CLEAR) H 07/18/17 21:30 Urine pH 7.5 (4.6 - 8.0) 07/18/17 21:30 Ur Specific [place] 1.025 (1.005-1.030) 07/18/17 21:30 Urine Protein >=300 mg/dL (NEGATIVE) 07/18/17 21:30 Urine Glucose (UA) NEGATIVE mg/dL (NEGATIVE) 07/18/17 21:30 Urine Ketones NEGATIVE mg/dL (NEGATIVE) 07/18/17 21:30 Urine Blood LARGE (NEGATIVE) H 07/18/17 21:30 Urine Nitrate NEGATIVE (NEGATIVE) 07/18/17 21:30 Urine Bilirubin NEGATIVE (NEGATIVE) 07/18/17 21:30 Urine Urobilinogen 0.2 E.U./dL (0.2 - 1.0) 07/18/17 21:30 Ur Leukocyte Esterase SMALL (NEGATIVE) H 07/18/17 21:30 Urine RBC 50-100 /hpf (0-5) H 07/18/17 21:30 Urine WBC 6-10 /hpf (0-5) H 07/18/17 21:30 Ur Epithelial Cells FEW /lpf (FEW) 07/18/17 21:30 Urine Bacteria MANY /hpf (NONE SEEN) 07/18/17 21:30 Ur Random Sodium 28 mmol/L 07/19/17 22:30 Urine Creatinine 26.3 mg/dl (Not Estab.) 07/19/17 22:30 Urine Microalbumin 2398.5 ug/mL (Not Estab.) 07/19/17 22:30 Microalb/Creat Ratio 9119.8 07/19/17 22:30 Stool Occult Blood NEGATIVE (NEGATIVE) 07/24/17 03:37 Random Vancomycin 26.6 ug/mL (5.0-40.0) 07/24/17 04:30 Blood Type O NEGATIVE 07/20/17 08:15 Antibody Screen NEGATIVE 07/20/17 08:15 - Physical Exam Vitals and I&O: Vital Signs Temp 98.9 F 07/25/17 12:00 Pulse 68 07/25/17 14:00 Resp 13 07/25/17 14:00 BP 167/53 07/25/17 14:00 Pulse Ox 100 07/25/17 14:00 Intake & Output 07/24/17 07/25/17 07/25/17 18:59 06:59 18:59 Intake Total 100 3235 675 Output Total 1600 Balance 100 1635 675 Weight (lbs) 71.668 kg Intake: Intake, IV Amount 100 1675 675 Dextrose 5% 1,000 ml @ 1375 625 100 mls/hr IV .Q10H [facility] Rx#:[id number] Piperacillin Sodium/ 100 50 50 Tazobact 2.25 gm In Dextrose 5% 50 ml @ 100 mls/hr IV Q8H [facility] Rx#: [id number] Vancomycin HCl 1 gm In 250 Dextrose 5% 250 ml @ 165 mls/hr IV Q24H [facility] Rx#: [id number] Oral 0 Tube Feeding 960 Other 600 Output: Urine 1600 Other: # Bowel Movements 1 Stool Characteristics Liquid Soft Soft Brown Brown Brown Active Medications: Current Medications Acetaminophen (Tylenol 650mg/20.3ml Suspension) 650 mg GT Q4H PRN PRN Reason: Pain or Fever >101 Stop: 09/16/17 23:47 Last Admin: 07/22/17 00:35 Dose: 650 mg Albuterol/Ipratropium (Duoneb Neb) 3 ml HHN Q6HRT [facility] Stop: 09/17/17 12:59 Last Admin: 07/25/17 13:33 Dose: 3 ml Albuterol/Ipratropium (Duoneb Neb) 3 ml HHN Q2HR PRN PRN Reason: Shortness of Breath Stop: 09/16/17 23:47 Ascorbic Acid (Vitamin C) 500 mg GT DAILY [facility] Stop: 09/17/17 08:59 Last Admin: 07/25/17 09:40 Dose: 500 mg Bisacodyl (Dulcolax 10 Mg Supp) 10 mg RC DAILY PRN PRN Reason: constip Stop: 09/16/17 23:47 Carvedilol (Coreg) 6.25 mg GT BID [facility] Stop: 09/17/17 08:59 Chlorhexidine Gluconate (Peridex) 15 ml MM 0800,2000 [facility] Stop: 09/17/17 07:59 Last Admin: 07/25/17 10:01 Dose: 15 ml Docusate Sodium (Colace) 100 mg GT BID PRN PRN Reason: Constipation Famotidine (Pepcid) 20 mg GT Q12H [facility] Stop: 09/16/17 23:44 Last Admin: 07/25/17 12:32 Dose: 20 mg Guaifenesin (Robitussin) 200 mg PO Q4HR PRN PRN Reason: Cough or Congestion Stop: 09/16/17 23:54 Heparin Sodium (Porcine) (Heparin) 5,000 units SUBQ Q12HR [facility] Stop: 09/17/17 08:59 Last Admin: 07/25/17 09:57 Dose: 5,000 units Piperacillin Sod/Tazobactam (Sod 2.25 gm/ Dextrose) 50 mls @ 100 mls/hr IV Q8H [facility] Stop: 09/17/17 16:59 Last Infusion: 07/25/17 14:06 Dose: Infused Vancomycin HCl 1 gm/ Dextrose 250 mls @ 165 mls/hr IV Q24H [facility] Stop: 09/22/17 15:59 Last Infusion: 07/24/17 19:44 Dose: Infused Dextrose (D5w) 1,000 mls @ 70 mls/hr IV .[id number] [facility] Stop: 09/22/17 13:49 Insulin Aspart (Novolog) 0 units SUBQ Q6HR [facility] PRN Reason: Protocol Stop: 09/18/17 17:59 Last Admin: 07/25/17 12:44 Dose: 5 units Insulin Detemir (Levemir Insulin) 24 units SUBQ BID [facility] PRN Reason: Protocol Stop: 09/20/17 08:59 Last Admin: 07/25/17 09:35 Dose: 24 units Magnesium Hydroxide (Milk Of Magnesia) 30 ml GT HS PRN PRN Reason: Constipation Stop: 09/16/17 23:47 Metoclopramide HCl (Reglan) 10 mg GT Q8H [facility] Stop: 09/20/17 13:01 Last Admin: 07/25/17 12:32 Dose: 10 mg Miscellaneous (Vancomycin Iv Per Pharmacy) 1 ea MC PRN [facility] Stop: 09/16/17 23:44 Miscellaneous (Clinical Monitoring) 1 ea MC PRN PRN PRN Reason: RENAL DOSE ZOSYN Stop: 09/17/17 08:23 Miscellaneous (Probiotic Screen) 1 ea MC PRN PRN PRN Reason: PROTOCOL Stop: 09/17/17 10:14 Miscellaneous (Vte Chemical Prophylaxis Screen/ Admission) 1 ea MC PRN PRN PRN Reason: PROTOCOL Stop: 09/17/17 13:47 Morphine Sulfate (Morphine) 2 mg IVP Q4H PRN PRN Reason: Pain (Severe) Stop: 09/16/17 23:53 Last Admin: 07/24/17 23:27 Dose: 2 mg Ondansetron HCl (Zofran) 4 mg IV Q8H PRN PRN Reason: Nausea / Vomiting Stop: 09/16/17 23:54 Last Admin: 07/21/17 18:48 Dose: 4 mg Potassium Chloride (Potassium Chloride Elixir) 20 meq GT BID [facility] Stop: 08/01/17 17:01 Last Admin: 07/25/17 09:40 Dose: 20 meq Sodium Phosphate (Fleet Enema) 135 ml RC Q48H PRN PRN Reason: Constipation Stop: 09/16/17 23:47 Vancomycin HCl (Vancomycin Oral) 250 mg GT Q6HR [facility] Stop: 09/18/17 17:59 Last Admin: 07/25/17 12:34 Dose: 250 mg Zinc Sulfate (Zinc Sulfate) 220 mg GT DAILY [facility] Stop: 09/17/17 08:59 Last Admin: 07/25/17 09:39 Dose: 220 mg General: Alert, No acute distress HEENT: Atraumatic, Mucous membr. moist/pink Neck: Supple, +2 carotid pulse wo bruit Cardiovascular: Regular rate, Normal S1, Normal S2 Lungs: Other (coarse rhonchi) Abdomen: Soft, Distended Extremities: no Edema Neurological: Sensation intact Skin: no Rash Psych/Mental Status: Mood NL - Procedures Procedures: Procedures Procedure Code Date RESPIRATORY VENTILATION, 24-96 CONSECUTIVE HOURS [id number] 07/18/17 Assessment/Plan - Assessment Assessment: ADELA Right Hydronephrosis, hydroureter w/ partial obstruction since has good UOP, improvement Kidney fnc Gross hematuria 2nd to trauma better Sepsis 2nd to Cx UTI RFVD Anemia CD Ess Htn Type 2 DM Met Enceph C. diff colitis Hypokalemia Hypernatremia - Plan Plan: Lab - Result Diagrams 07/20/17 04:10 07/20/17 04:10 Current Medications Acetaminophen (Tylenol 650mg/20.3ml Suspension) 650 mg GT Q4H PRN PRN Reason: Pain or Fever >101 Stop: 09/16/17 23:47 Albuterol/Ipratropium (Duoneb Neb) 3 ml HHN Q6HRT [facility] Stop: 09/17/17 12:59 Last Admin: 07/20/17 13:39 Dose: 3 ml Albuterol/Ipratropium (Duoneb Neb) 3 ml HHN Q2HR PRN PRN Reason: Shortness of Breath Stop: 09/16/17 23:47 Ascorbic Acid (Vitamin C) 500 mg GT DAILY [facility] Stop: 09/17/17 08:59 Last Admin: 07/20/17 09:07 Dose: 500 mg Bisacodyl (Dulcolax 10 Mg Supp) 10 mg RC DAILY PRN PRN Reason: constip Stop: 09/16/17 23:47 Carvedilol (Coreg) 3.125 mg GT BID [facility] Stop: 09/17/17 08:59 Last Admin: 07/20/17 16:43 Dose: 3.125 mg Chlorhexidine Gluconate (Peridex) 15 ml MM 08,1999 [facility] Stop: 09/17/17 07:59 Last Admin: 07/20/17 07:56 Dose: 15 ml Docusate Sodium (Colace) 100 mg GT BID PRN PRN Reason: Constipation Famotidine (Pepcid) 20 mg GT Q12H [facility] Stop: 09/16/17 23:44 Last Admin: 07/20/17 11:56 Dose: 20 mg Guaifenesin (Robitussin) 200 mg PO Q4HR PRN PRN Reason: Cough or Congestion Stop: 09/16/17 23:54 Heparin Sodium (Porcine) (Heparin) 5,000 units SUBQ Q12HR [facility] Stop: 09/17/17 08:59 Last Admin: 07/20/17 09:09 Dose: 5,000 units Piperacillin Sod/Tazobactam (Sod 2.25 gm/ Sodium Chloride) 100 mls @ 100 mls/ hr IV Q8H [facility] Stop: 09/17/17 08:59 Last Admin: 07/20/17 16:43 Dose: 100 mls/hr Vancomycin HCl 1 gm/ Dextrose 250 mls @ 165 mls/hr IV Q36H [facility] Stop: 09/18/17 01:59 Last Infusion: 07/20/17 04:00 Dose: Infused Sodium Chloride (Nacl 0.9%) 1,000 mls @ 100 mls/hr IV .Q10H [facility] Stop: 09/16/17 23:44 Last Admin: 07/20/17 02:00 Dose: 100 mls/hr Insulin Aspart (Novolog) 0 units SUBQ Q6HR [facility] PRN Reason: Protocol Stop: 09/18/17 17:59 Insulin Detemir (Levemir Insulin) 18 units SUBQ BID [facility] PRN Reason: Protocol Stop: 09/18/17 08:59 Last Admin: 07/20/17 16:44 Dose: 18 units Lactobacillus Rhamnosus (Culturelle) 1 each PO DAILY [facility] Stop: 09/18/17 08:59 Last Admin: 07/20/17 09:07 Dose: 1 each Magnesium Hydroxide (Milk Of Magnesia) 30 ml GT HS PRN PRN Reason: Constipation Stop: 09/16/17 23:47 Metoclopramide HCl (Reglan) 5 mg GT Q8H [facility] Stop: 09/16/17 23:44 Last Admin: 07/20/17 15:45 Dose: Not Given Miscellaneous (Vancomycin Iv Per Pharmacy) 1 ea MC PRN [facility] Stop: 09/16/17 23:44 Miscellaneous (Clinical Monitoring) 1 ea PRN PRN PRN Reason: RENAL DOSE ZOSYN Stop: 09/17/17 08:23 Miscellaneous (Probiotic Screen) 1 ea PRN PRN PRN Reason: PROTOCOL Stop: 09/17/17 10:14 Miscellaneous (Vte Chemical Prophylaxis Screen/ Admission) 1 ea PRN PRN PRN Reason: PROTOCOL Stop: 09/17/17 13:47 Morphine Sulfate (Morphine) 2 mg IVP Q4H PRN PRN Reason: Pain (Severe) Stop: 09/16/17 23:53 Ondansetron HCl (Zofran) 4 mg IV Q8H PRN PRN Reason: Nausea / Vomiting Stop: 09/16/17 23:54 Sodium Phosphate (Fleet Enema) 135 ml RC Q48H PRN PRN Reason: Constipation Stop: 09/16/17 23:47 Vancomycin HCl (Vancomycin Oral) 250 mg GT Q6HR [facility] Stop: 09/18/17 17:59 Last Admin: 07/20/17 17:54 Dose: 250 mg Zinc Sulfate (Zinc Sulfate) 220 mg GT DAILY [facility] Stop: 09/17/17 08:59 Last Admin: 07/20/17 09:07 Dose: 220 mg Lab - Result Diagrams 07/25/17 05:13 07/25/17 05:13 kidney fnc gradually improving, BUN down to 41 replace K, Na now 140 C02 better, dc NaHC03 no further hematuria CT pelvis revealed right hydronephrosis/ureter switch IVF to D5W since BS under better control & BP more stable f/u elelctrolytes, cbc Nutritional Asmnt/Malnutr-PDOC - Dietary Evaluation Malnutrition Findings (Please click <Entered> for more info): Nutritional Asmnt/Malnutrition Start: 07/19/17 17: 24 Text: Status: Complete Freq: Document 07/19/17 17:25 LCHENG (Rec: 07/19/17 17:43 LCHENG [id number]) Nutritional Asmnt/Malnutrition Patient General Information Nutritional Screening High Risk Consult Diagnosis Sepsis, UTI Pertinent Medical Hx/Surgical Hx HTN, DM, CAD, CHF, chronic resperatory failure, anemia, PEG/Gtube, tracheostomy Subjective Information Consult received for elevated BG. Pt seen lying in bed, on vent, non verbal comminication noted. Not able to obtain nutrition hx. Spoke with RN, no nutrition plan at this time . Current Diet Order/ Nutrition Support NPO Pertinent Medications Vitamin C, novolog, cultrelle, reglan, vancomycin, , piperacillin, Nacl 0.9%, Zinc Pertinent Labs 07/19 Na 132, K 5.3, Cl 97L, BUN 137, Cr 2.7, Glu 353, POC 324-394, A1C 6.2 Nutritional Hx/Data Height 1.57 m Height (Calculated Centimeters) 157.5 Current Weight (lbs) 80.83 kg Weight (Calculated Kilograms) 80.8 Weight (Calculated Grams) 65119.2 [place] Body Weight 110 % [place] Body Weight 162 Body Mass Index (BMI) 32.5 Weight Status Obese GI Symptoms GI Symptoms None Last BM none Usual diet at home Glucerna 1.5 60ml/hr x 20hr daily at SN[facility] Skin Integrity/Comment: decubitus ulceration to sacrum Estimated Nutritional Goals BEE in Kcals: Adj wt of IBW Calories/Kcals/Kg 30-35 Kcals Calculated Protein: Adj wt of IBW Protein g/k.2-1.5 Protein Calculated 69-87 Fluid: ml Nutritional Problem 2. Problem Problem increased nutrition needs ( calorie and protein) Etiology increased metabolic demand for healing Signs/Symptoms: sepsis 1. Problem Problem altered nutrition related lab values Etiology hx of DM, acute renal insufficiency Signs/Symptoms: BUN 137, Cr 2.7, Glu 353, POC 324-394, A1C 6.2 Malnutrition Alert Protein-Calorie Malnutrition N/A Is there a minimum of two criteria No selected? Query Text:Check all the applicable criteria. A minimum of two criteria are recommended for diagnosis of either severe or non-severe malnutrition. Intervention/Recommendation Comments 1. Monitor NPO status. 2. If enteral feeding needed, recommend to start Diabetisource AC at 30ml/hr continuous. Increased to goal rate of 60ml/hr continuous as tolerated. This will provide 1728kcal, 86g protein and 1179ml water, meeting 100% of nutritional needs. 3. Monitor wt, labs and skin integrity 4. F/U as high risk in 2-3 days, 07/21-07/22 Expected Outcomes/Goals Expected Outcomes/Goals 1. Pt to meet at least 75% of nutritional needs in 2-3 days 2. Wt stability, skin to remain intact, labs to improve .
--- NOTE | 2017-07-25 16:52 | Progress Notes ---
DATE: UROLOGY PROGRESS NOTE SUBJECTIVE: The patient is stable, but the white count remains elevated. Infectious Disease is addressing that with vancomycin and Zosyn. OBJECTIVE: VITAL SIGNS: On exam; temperature 98.9, blood pressure fluctuates between 150-160 systolic and 70 diastolic, heart rate 68. Ventilator settings; assist control of 12, tidal volume of 500, FiO2 down to 30% from 35%. LUNGS: Occasional rhonchi. ABDOMEN: Soft with G-tube feeding being tolerated well. No tenderness. Bladder nonpalpable, nondistended. Ocampo catheter, urine is clearer and better with daily irrigations. LABORATORY DATA: White count 18.9, no significant change; hemoglobin 8.7. Sodium 140, potassium 4.2, chloride 110, CO2 24.1, glucose 182, BUN 41, and creatinine 0.9. IMPRESSION: 1. Urinary tract infection secondary to neurogenic bladder, now with Ocampo and bladder irrigations. 2. Elevated white count, source and exact details unknown as it is not improving over the last several days in spite of the antibiotics. 3. Right hydronephrosis secondary to neurogenic bladder. We will check another ultrasound tomorrow. 4. Multiple sclerosis, no change. 5. Diabetes, fair control. 6. Dementia, no change. 7. Tracheostomy and G-tube status, ventilator dependency, stable. JOB# [id number]
--- NOTE | 2017-07-25 21:11 | Progress Notes ---
DATE: 07/25/2017 PROBLEM LIST: 1. Acute on chronic respiratory failure. 2. Chronic vent dependent. 3. Possibly vent-associated pneumonitis. SYMPTOMS: None. The patient is not well this morning. No respiratory distress, etc. PHYSICAL EXAMINATION: VITAL SIGNS: T-max 98.2, blood pressure 170/62, saturation 100%, currently on 30%. NECK: Veins not visualized. CHEST: Shows diminished air entry with occasional secretory noise. HEART: Regular. ABDOMEN: Soft and nontender. LABORATORY DATA: White count is 18.9, hemoglobin 8.7 and ABG on 35% of oxygen with 5 PEEP this morning, pO2 is 44 with fairly normal acid base balance. ASSESSMENT: The patient is clinically stable, not significantly much changed. PLANS AND SUGGESTIONS: We will decrease FIO2. Continue current treatment. Follow through other laboratory studies tomorrow and go from there. JOB# [id number]
[2017-07-26] MEDS: INSULIN ASPART, RECOMBINANT 100 UNITS/ML SUBQ SCH ×4 (00:12→17:22)
[2017-07-26] MEDS: Vancomycin HCL 250 mg /10mL UDC GT SCH ×4 (00:13→17:20)
[2017-07-26] MEDS: Albuterol/Ipratropium Neb 3 ML AERS HHN SCH ×4 (01:19→19:05)
[2017-07-26] MEDS: Dextrose 5% 1,000 ML IV SCH ×2 (04:20→14:05)
[2017-07-26 05:24] LABS: HEMATOCRIT 26.1 % (41.0-60); MANUAL DIFF REQUIRED? YES; MEAN PLATELET VOLUME 10.8 fl
[2017-07-26 05:30] LABS: HEMOGLOBIN 8.8 gm/dL (12-16); MEAN CELL VOLUME 84.7 fl (81-100); MEAN CORPUSCULAR HEMOGLOBIN 28.5 pg (27.0-31.0); MEAN CORPUSCULAR HGB CONC 33.6 pg (28.0-36.0); PLATELET COUNT 234 Th/cmm (150-400); RED BLOOD COUNT 3.09 Mil/cmm (3.80-5.10); RED CELL DISTRIBUTION WIDTH 13.7 % (11.5-20.0)
[2017-07-26 05:32] LABS: WHITE BLOOD COUNT 22.4 Th/cmm (4.8-10.8)
[2017-07-26 05:38] LABS: ANION GAP 12.1 (7.0-16.0); BUN - UREA NITROGEN 35 mg/dL (7-25); CALCIUM SERUM 8.2 mg/dL (8.6-10.3); CARBON DIOXIDE 21.1 mEq/L (21.0-31.0); CHLORIDE 103 mEq/L (98-107); GFR AFRICAN-AMERICAN > 60.0 ml/min (>90); GFR NON AFRICAN-AMERICAN 59.7 ml/min; GLUCOSE 145 mg/dL (70-105); POTASSIUM SERUM 4.2 mEq/L (3.5-5.1); SODIUM SERUM 132 mEq/L (136-145)
[2017-07-26 05:54] LABS: BAND NEUTROPHILE 6 % (0-10); EOSINOPHIL 3 % (0-5); LYMPHOCYTE 13 % (20-50); MONOCYTE 1 % (2-10); NEUTROPHILS 77 % (40-80); TOTAL CELLS COUNTED 100
[2017-07-26] MEDS: Multivitamin w/ Minerals Tab GT SCH (08:40)
[2017-07-26] MEDS: Potassium Chloride Elixir 20 mEq /15 mL UDC GT SCH ×2 (08:41→17:22)
[2017-07-26] MEDS: Chlorhexidine Gluconate 0.12% 15mL Mouthwash MM SCH ×2 (08:41→19:39)
[2017-07-26] MEDS: Insulin Detemir 100 units/mL 10mL Vial SUBQ SCH ×2 (08:43→17:20)
[2017-07-26] MEDS ORDERED: Menthol/Zinc Oxide Oint 113gm Tube TP PRN (09:36)
--- NOTE | 2017-07-26 10:24 | Diagnostic Imaging Report ---
CHEST X-RAY: AP view INDICATION: Shortness of breath COMPARISON: 07/25/2017 FINDINGS: Tracheostomy tube is noted. Left basal increased lung markings are noted. No focal consolidation or effusion. Borderline prominent heart is noted. IMPRESSION: Left basal subsegmental atelectasis versus.
[2017-07-26] MEDS: Menthol/Zinc Oxide Oint 113gm Tube TP SCH ×3 (12:05→20:51)
--- NOTE | 2017-07-26 12:50 | Internal Medicine Prog Note ---
Internal Medicine Subjective - Subjective Service Date: 07/26/17 Patient seen and examined:: with staff Patient is:: awake, non-verbal Per staff patient has:: tolerating meds Internal Medicine Objective - Results Result Diagrams: 07/26/17 04:15 07/26/17 04:15 Recent Labs: Laboratory Last Values WBC 22.4 Th/cmm (4.8-10.8) H* 07/26/17 04:15 RBC 3.09 Mil/cmm (3.80-5.10) L 07/26/17 04:15 Hgb 8.8 gm/dL (12-16) L 07/26/17 04:15 Hct 26.1 % (41.0-60) L 07/26/17 04:15 MCV 84.7 fl (81-100) 07/26/17 04:15 MCH 28.5 pg (27.0-31.0) 07/26/17 04:15 MCHC Differential 33.6 pg (28.0-36.0) 07/26/17 04:15 RDW 13.7 % (11.5-20.0) 07/26/17 04:15 Plt Count 234 Th/cmm (150-400) 07/26/17 04:15 MPV 10.8 fl 07/26/17 04:15 Neutrophils % 72.3 % (40.0-80.0) 07/25/17 05:13 Band Neutrophils % 6 % (0-10) 07/26/17 04:15 Lymphocytes % 21.5 % (20.0-50.0) 07/25/17 05:13 Monocytes % 3.4 % (2.0-10.0) 07/25/17 05:13 Eosinophils % 2.8 % (0.0-5.0) 07/25/17 05:13 Basophils % 0.0 % (0.0-2.0) 07/25/17 05:13 Neutrophils (Manual) 77 % (40-80) 07/26/17 04:15 Lymphocytes 13 % (20-50) L 07/26/17 04:15 Monocytes 1 % (2-10) L 07/26/17 04:15 Eosinophils 3 % (0-5) 07/26/17 04:15 Hypochromia 1+ 07/18/17 22:15 Platelet Estimate ADEQUATE (NORMAL) 07/23/17 04:33 Polychromasia 1+ 07/18/17 22:15 Smear Path Review YES 07/18/17 22:15 Eos Smear Source URINE 07/19/17 22:30 Eos Smear Total Cells NONE SEEN (NONE SEEN) 07/19/17 22:30 Specimen Source Arterial 07/25/17 14:15 Sample Site RIGHT BRACHIAL 07/25/17 14:15 pH 7.48 (7.35-7.45) H 07/25/17 14:15 pCO2 33.0 mmHg (35.0-45.0) L 07/25/17 14:15 pO2 144.0 mmHg (80.0-100.0) H 07/25/17 14:15 HCO3 26.1 mEq/L (20.0-26.0) H 07/25/17 14:15 Base Excess 1.5 mEq/L (-3.0-3.0) 07/25/17 14:15 O2 Saturation 99.0 % (92.0-100.0) 07/25/17 14:15 Cricket Test Positive 07/25/17 14:15 Vent Rate 12 07/25/17 14:15 Inspired O2 35 07/25/17 14:15 Tidal Volume 500 07/25/17 14:15 PEEP 5 07/25/17 14:15 Pressure (ins/psv/peep) N/A 07/25/17 14:15 Critical Value HSTEHNO 07/25/17 14:15 Sodium 132 mEq/L (136-145) L 07/26/17 04:15 Potassium 4.2 mEq/L (3.5-5.1) 07/26/17 04:15 Chloride 103 mEq/L (98-107) 07/26/17 04:15 Carbon Dioxide 21.1 mEq/L (21.0-31.0) 07/26/17 04:15 Anion Gap 12.1 (7.0-16.0) 07/26/17 04:15 BUN 35 mg/dL (7-25) H 07/26/17 04:15 Creatinine 1.0 mg/dL (0.6-1.2) 07/26/17 04:15 Est GFR ( Amer) > 60.0 ml/min (>90) 07/26/17 04:15 Est GFR (Non-Af Amer) 59.7 ml/min 07/26/17 04:15 BUN/Creatinine Ratio 35.0 07/26/17 04:15 Glucose 145 mg/dL (70-105) H 07/26/17 04:15 POC Glucose 156 MG/DL (70 - 105) H 07/26/17 12:01 Hemoglobin A1c % 6.2 % (4.0-6.0) H 07/18/17 23:30 Plasma/Ser Osmolality 344 mOsmol/kg (280-301) H 07/19/17 23:30 Whole Bld Lactic Acid 0.61 mmol/L (0.60-1.99) 07/20/17 04:10 Uric Acid 9.5 mg/dL (2.3-6.6) H 07/20/17 04:10 Calcium 8.2 mg/dL (8.6-10.3) L 07/26/17 04:15 Phosphorus 4.5 mg/dL (2.5-5.0) 07/20/17 04:10 Magnesium 1.9 mg/dL (1.9-2.7) 07/24/17 04:30 Total Bilirubin 0.3 mg/dL (0.3-1.0) 07/20/17 04:10 AST 8 U/L (13-39) L 07/20/17 04:10 ALT 14 U/L (7-52) 07/20/17 04:10 Alkaline Phosphatase 87 U/L (34-104) 07/20/17 04:10 Ammonia 46 umol/L (16-53) 07/25/17 06:13 Creatine Kinase 26 U/L (30-223) L 07/18/17 22:15 Troponin I 0.27 ng/mL (0.01-0.05) H* 07/18/17 22:15 B-Natriuretic Peptide 775.0 pg/mL (5.0-100.0) H 07/23/17 04:33 Total Protein 6.6 gm/dL (6.0-8.3) 07/20/17 04:10 Albumin 2.7 gm/dL (3.7-5.3) L 07/20/17 04:10 Globulin 3.9 gm/dL 07/20/17 04:10 Albumin/Globulin Ratio 0.7 (1.0-1.8) L 07/20/17 04:10 TSH 2.30 uIU/ml (0.34-5.60) 07/19/17 04:15 Urine Source [place] 07/18/17 21:30 Urine Color RED 07/18/17 21:30 Urine Clarity CLOUDY (CLEAR) H 07/18/17 21:30 Urine pH 7.5 (4.6 - 8.0) 07/18/17 21:30 Ur Specific Lena 1.025 (1.005-1.030) 07/18/17 21:30 Urine Protein >=300 mg/dL (NEGATIVE) 07/18/17 21:30 Urine Glucose (UA) NEGATIVE mg/dL (NEGATIVE) 07/18/17 21:30 Urine Ketones NEGATIVE mg/dL (NEGATIVE) 07/18/17 21:30 Urine Blood LARGE (NEGATIVE) H 07/18/17 21:30 Urine Nitrate NEGATIVE (NEGATIVE) 07/18/17 21:30 Urine Bilirubin NEGATIVE (NEGATIVE) 07/18/17 21:30 Urine Urobilinogen 0.2 E.U./dL (0.2 - 1.0) 07/18/17 21:30 Ur Leukocyte Esterase SMALL (NEGATIVE) H 07/18/17 21:30 Urine RBC 50-100 /hpf (0-5) H 07/18/17 21:30 Urine WBC 6-10 /hpf (0-5) H 07/18/17 21:30 Ur Epithelial Cells FEW /lpf (FEW) 07/18/17 21:30 Urine Bacteria MANY /hpf (NONE SEEN) 07/18/17 21:30 Ur Random Sodium 28 mmol/L 07/19/17 22:30 Urine Creatinine 26.3 mg/dl (Not Estab.) 07/19/17 22:30 Urine Microalbumin 2398.5 ug/mL (Not Estab.) 07/19/17 22:30 Microalb/Creat Ratio 9119.8 07/19/17 22:30 Stool Occult Blood NEGATIVE (NEGATIVE) 07/24/17 03:37 Random Vancomycin 26.6 ug/mL (5.0-40.0) 07/24/17 04:30 Blood Type O NEGATIVE 07/20/17 08:15 Antibody Screen NEGATIVE 07/20/17 08:15 - Physical Exam Vitals and I&O: Vital Signs Temp 97.6 F 07/26/17 08:00 Pulse 65 07/26/17 11:48 Resp 14 07/26/17 11:00 BP 112/32 07/26/17 11:00 Pulse Ox 100 07/26/17 11:48 Intake & Output 07/25/17 07/26/17 07/26/17 18:59 06:59 18:59 Intake Total 1155 2026.667 50 Output Total 1300 1000 Balance -145 1026.667 50 Weight (lbs) 158 lb 162 lb Intake: Intake, IV Amount 675 1466.667 50 Dextrose 5% 1,000 ml @ 625 100 mls/hr IV .Q10H [facility] Rx#:[id number] Dextrose 5% 1,000 ml @ 70 1116.667 mls/hr IV .[id number] [facility] Rx#:[id number] Piperacillin Sodium/ 50 100 50 Tazobact 2.25 gm In Dextrose 5% 50 ml @ 100 mls/hr IV Q8H [facility] Rx#: [id number] Vancomycin HCl 1 gm In 250 Dextrose 5% 250 ml @ 165 mls/hr IV Q24H [facility] Rx#: [id number] Tube Feeding 480 440 Other 120 Output: Urine 1300 1000 Other: # Bowel Movements 0 3 Stool Characteristics Soft Soft Liquid Brown Liquid Brown Brown Active Medications: Current Medications Acetaminophen (Tylenol 650mg/20.3ml Suspension) 650 mg GT Q4H PRN PRN Reason: Pain or Fever >101 Stop: 09/16/17 23:47 Last Admin: 07/22/17 00:35 Dose: 650 mg Albuterol/Ipratropium (Duoneb Neb) 3 ml HHN Q6HRT [facility] Stop: 09/17/17 12:59 Last Admin: 07/26/17 08:11 Dose: 3 ml Albuterol/Ipratropium (Duoneb Neb) 3 ml HHN Q2HR PRN PRN Reason: Shortness of Breath Stop: 09/16/17 23:47 Ascorbic Acid (Vitamin C) 500 mg GT DAILY [facility] Stop: 09/17/17 08:59 Last Admin: 07/26/17 08:40 Dose: 500 mg Bisacodyl (Dulcolax 10 Mg Supp) 10 mg RC DAILY PRN PRN Reason: constip Stop: 09/16/17 23:47 Calamine/Phenol (Calmoseptine) 1 appl TP QID PRN PRN Reason: Skin Irritation Stop: 09/24/17 09:35 Calamine/Phenol (Calmoseptine) 1 appl TP QID [facility] Stop: 09/24/17 12:59 Last Admin: 07/26/17 12:05 Dose: 1 appl Carvedilol (Coreg) 6.25 mg GT BID [facility] Stop: 09/17/17 08:59 Last Admin: 07/26/17 08:39 Dose: 6.25 mg Chlorhexidine Gluconate (Peridex) 15 ml MM 08,1999 [facility] Stop: 09/17/17 07:59 Last Admin: 07/26/17 08:41 Dose: 15 ml Docusate Sodium (Colace) 100 mg GT BID PRN PRN Reason: Constipation Famotidine (Pepcid) 20 mg GT Q12H [facility] Stop: 09/16/17 23:44 Last Admin: 07/26/17 12:03 Dose: 20 mg Guaifenesin (Robitussin) 200 mg PO Q4HR PRN PRN Reason: Cough or Congestion Stop: 09/16/17 23:54 Heparin Sodium (Porcine) (Heparin) 5,000 units SUBQ Q12HR [facility] Stop: 09/17/17 08:59 Last Admin: 07/26/17 08:40 Dose: 5,000 units Piperacillin Sod/Tazobactam (Sod 2.25 gm/ Dextrose) 50 mls @ 100 mls/hr IV Q8H [facility] Stop: 09/17/17 16:59 Last Infusion: 07/26/17 09:10 Dose: Infused Vancomycin HCl 1 gm/ Dextrose 250 mls @ 165 mls/hr IV Q24H [facility] Stop: 09/22/17 15:59 Last Infusion: 07/25/17 19:45 Dose: Infused Dextrose (D5w) 1,000 mls @ 70 mls/hr IV .[id number] [facility] Stop: 09/22/17 13:49 Last Infusion: 07/26/17 06:00 Dose: 70 mls/hr Insulin Aspart (Novolog) 0 units SUBQ Q6HR [facility] PRN Reason: Protocol Stop: 09/18/17 17:59 Last Admin: 07/26/17 12:37 Dose: 3 units Insulin Detemir (Levemir Insulin) 24 units SUBQ BID [facility] PRN Reason: Protocol Stop: 09/20/17 08:59 Last Admin: 07/26/17 08:43 Dose: 24 units Magnesium Hydroxide (Milk Of Magnesia) 30 ml GT HS PRN PRN Reason: Constipation Stop: 09/16/17 23:47 Metoclopramide HCl (Reglan) 10 mg GT Q8H [facility] Stop: 09/20/17 13:01 Last Admin: 07/26/17 12:03 Dose: 10 mg Miscellaneous (Vancomycin Iv Per Pharmacy) 1 ea MC PRN [facility] Stop: 09/16/17 23:44 Miscellaneous (Clinical Monitoring) 1 ea PRN PRN PRN Reason: RENAL DOSE ZOSYN Stop: 09/17/17 08:23 Miscellaneous (Probiotic Screen) 1 ea PRN PRN PRN Reason: PROTOCOL Stop: 09/17/17 10:14 Miscellaneous (Vte Chemical Prophylaxis Screen/ Admission) 1 ea PRN PRN PRN Reason: PROTOCOL Stop: 09/17/17 13:47 Morphine Sulfate (Morphine) 2 mg IVP Q4H PRN PRN Reason: Pain (Severe) Stop: 09/16/17 23:53 Last Admin: 07/24/17 23:27 Dose: 2 mg Ondansetron HCl (Zofran) 4 mg IV Q8H PRN PRN Reason: Nausea / Vomiting Stop: 09/16/17 23:54 Last Admin: 07/21/17 18:48 Dose: 4 mg Potassium Chloride (Potassium Chloride Elixir) 20 meq GT BID [facility] Stop: 08/01/17 17:01 Last Admin: 07/26/17 08:41 Dose: 20 meq Rifaximin (Xifaxan) 500 mg GT BID [facility] Stop: 09/24/17 16:59 Sodium Phosphate (Fleet Enema) 135 ml RC Q48H PRN PRN Reason: Constipation Stop: 09/16/17 23:47 Vancomycin HCl (Vancomycin Oral) 250 mg GT Q6HR [facility] Stop: 09/18/17 17:59 Last Admin: 07/26/17 12:03 Dose: 250 mg Zinc Sulfate (Zinc Sulfate) 220 mg GT DAILY [facility] Stop: 09/17/17 08:59 Last Admin: 07/26/17 08:40 Dose: 220 mg General: weak, obtunded HEENT: NC/AT, PERRLA Neck: Supple Lungs: ronchi Cardiovascular: RRR, without murmur Abdomen: soft, non-tender, non-distended, +GT, positive bowel sound Extremities: excoriation Neurological: bedbound - Procedures Procedures: Procedures Procedure Code Date RESPIRATORY VENTILATION, GREATER THAN 96 CONSECUTIVE HOURS [id number] 07/18/17 Internal Medicine Assmt/Plan - Assessment Assessment: sepsis cdiff chronic respiratory failure VDRF leukocytosis hematuria-improved htn dm2 cad chf anemia tracheostomy status hypokalemia acute renal insufficiency elevated troponin mild protein calorie malnutrition acute uti - Plan Plan: LTAC EVAL contact isolation continue with ivabx renal follow up monitor h/h follow up labs in am vent support continue current plan of care Nutritional Asmnt/Malnutr-PDOC - Dietary Evaluation Malnutrition Findings (Please click <Entered> for more info): Nutritional Asmnt/Malnutrition Start: 07/19/17 17: 24 Text: Status: Complete Freq: Document 07/19/17 17:25 LCHENG (Rec: 07/19/17 17:43 LCHENG [email or web address]) Nutritional Asmnt/Malnutrition Patient General Information Nutritional Screening High Risk Consult Diagnosis Sepsis, UTI Pertinent Medical Hx/Surgical Hx HTN, DM, CAD, CHF, chronic resperatory failure, anemia, PEG/Gtube, tracheostomy Subjective Information Consult received for elevated BG. Pt seen lying in bed, on vent, non verbal comminication noted. Not able to obtain nutrition hx. Spoke with RN, no nutrition plan at this time . Current Diet Order/ Nutrition Support NPO Pertinent Medications Vitamin C, novolog, cultrelle, reglan, vancomycin, , piperacillin, Nacl 0.9%, Zinc Pertinent Labs 07/19 Na 132, K 5.3, Cl 97L, BUN 137, Cr 2.7, Glu 353, POC 324-394, A1C 6.2 Nutritional Hx/Data Height 5 ft 2 in Height (Calculated Centimeters) 157.5 Current Weight (lbs) 178 lb 3.2 oz Weight (Calculated Kilograms) 80.8 Weight (Calculated Grams) 82378.2 [place] Body Weight 110 % [place] Body Weight 162 Body Mass Index (BMI) 32.5 Weight Status Obese GI Symptoms GI Symptoms None Last BM none Usual diet at home Glucerna 1.5 60ml/hr x 20hr daily at [facility] Skin Integrity/Comment: decubitus ulceration to sacrum Estimated Nutritional Goals BEE in Kcals: Adj wt of IBW Calories/Kcals/Kg 30-35 Kcals Calculated Protein: Adj wt of IBW Protein g/k.2-1.5 Protein Calculated 69-87 Fluid: ml Nutritional Problem 2. Problem Problem increased nutrition needs ( calorie and protein) Etiology increased metabolic demand for healing Signs/Symptoms: sepsis 1. Problem Problem altered nutrition related lab values Etiology hx of DM, acute renal insufficiency Signs/Symptoms: BUN 137, Cr 2.7, Glu 353, POC 324-394, A1C 6.2 Malnutrition Alert Protein-Calorie Malnutrition N/A Is there a minimum of two criteria No selected? Query Text:Check all the applicable criteria. A minimum of two criteria are recommended for diagnosis of either severe or non-severe malnutrition. Intervention/Recommendation Comments 1. Monitor NPO status. 2. If enteral feeding needed, recommend to start Diabetisource AC at 30ml/hr continuous. Increased to goal rate of 60ml/hr continuous as tolerated. This will provide 1728kcal, 86g protein and 1179ml water, meeting 100% of nutritional needs. 3. Monitor wt, labs and skin integrity 4. F/U as high risk in 2-3 days, 07/21-07/22 Expected Outcomes/Goals Expected Outcomes/Goals 1. Pt to meet at least 75% of nutritional needs in 2-3 days 2. Wt stability, skin to remain intact, labs to improve .
[2017-07-26] MEDS: D5-0.45NS 1,000 ML IV SCH (17:46)
--- NOTE | 2017-07-26 20:01 | Progress Notes ---
DATE: 07/26/2017 SUBJECTIVE: The patient is getting ready for transfer to [place] for long-term care. White count remains elevated and a third antibiotic was added on to the vancomycin and Zosyn. PHYSICAL EXAMINATION: VITAL SIGNS: Temperature 97.6, heart rate 66, blood pressure 111/38, saturating 100% on assist control of 12 on the ventilator. ABDOMEN: Soft, nontender, nondistended with G-tube feedings going on . Bladder not palpable. Ocampo catheter being irrigated and clear. EXTREMITIES: Trace edema. LABORATORY DATA: White count further elevated to 22.4. IMPRESSION: 1. Leukocytosis, source not completely clear with multiple possibilities including bedsore, UTI and may be URI. 2. Right hydronephrosis. We will do an ultrasound today to make sure it has improved or resolved. 3. Neurogenic bladder, requires long-term Ocampo catheter and catheter care with frequent changes and daily irrigations. 4. Diabetes, multiple sclerosis, history of stroke, dementia and congestive heart failure. No significant change. Last ventilator status stable. [facility]# [id number]
--- NOTE | 2017-07-26 21:10 | Progress Notes ---
DATE: 07/26/2017 PROBLEM LIST: 1. Acute on chronic respiratory failure. 2. Altered level of consciousness. 3. Morbid obesity. SYMPTOMS: Noncommunicative, awake, looks from side to side, no respiratory distress, etc. PHYSICAL EXAMINATION: VITAL SIGNS: The patient is afebrile, heart rate in the 60s, blood pressure 134/51, saturation 100% on 30% of oxygen. NECK: Veins not visualized. CHEST: Shows diminished air entry with occasional rhonchi. HEART: Regular. ABDOMEN: Soft, nontender. EXTREMITIES: Shows no peripheral edema. LABORATORY DATA: The patient's chest x-ray shows very minimal atelectasis at left base and other laboratory studies: White count is still 22,000, hemoglobin 8.8. Electrolytes are okay. BUN is 35. ASSESSMENT: The patient respiratory gallardo appears to be stable with very minimal atelectasis on the left base. Elevated white count, exact reason is not clear, respiratory gallardo. PLANS AND SUGGESTIONS: We will continue respiratory care, etc. and go from there. JOB# [id number]
[2017-07-27] MEDS: INSULIN ASPART, RECOMBINANT 100 UNITS/ML SUBQ SCH ×4 (00:07→17:13)
[2017-07-27] MEDS: Albuterol/Ipratropium Neb 3 ML AERS HHN SCH ×4 (01:02→19:08)
[2017-07-27] MEDS: Vancomycin HCL 250 mg /10mL UDC GT SCH ×5 (01:20→23:40)
[2017-07-27 02:12] LABS: FOLIC ACID >20.0 ng/mL (>3.0)
[2017-07-27 06:03] LABS: % BASOPHILS 0.1 % (0.0-2.0); % EOSINOPHILS 2.7 % (0.0-5.0); % LYMPHOCYTES 15.9 % (20.0-50.0); % NEUTROPHILS 77.3 % (40.0-80.0); EOSINOPHILE ABSOLUTE 0.5 Th/cmm (0.1-0.4); HEMOGLOBIN 9.8 gm/dL (12-16); MEAN CELL VOLUME 85.2 fl (81-100); MEAN CORPUSCULAR HEMOGLOBIN 28.7 pg (27.0-31.0); MEAN CORPUSCULAR HGB CONC 33.7 pg (28.0-36.0); MEAN PLATELET VOLUME 10.7 fl; MONOCYTE ABSOLUTE 0.7 Th/cmm (0.3-1.0); NEUTROPHILE ABSOLUTE 14.4 Th/cmm (1.8-8.0); PLATELET COUNT 247 Th/cmm (150-400); RED CELL DISTRIBUTION WIDTH 13.6 % (11.5-20.0)
[2017-07-27 06:05] LABS: WHITE BLOOD COUNT 18.6 Th/cmm (4.8-10.8)
[2017-07-27 06:14] LABS: ANION GAP 12.3 (7.0-16.0); BUN - UREA NITROGEN 31 mg/dL (7-25); CALCIUM SERUM 8.4 mg/dL (8.6-10.3); CARBON DIOXIDE 20.7 mEq/L (21.0-31.0); CHLORIDE 103 mEq/L (98-107); GFR AFRICAN-AMERICAN > 60.0 ml/min (>90); GFR NON AFRICAN-AMERICAN 59.7 ml/min; GLUCOSE 93 mg/dL (70-105); SODIUM SERUM 132 mEq/L (136-145)
[2017-07-27] MEDS: Chlorhexidine Gluconate 0.12% 15mL Mouthwash MM SCH ×2 (08:20→20:16)
--- NOTE | 2017-07-27 08:44 | Diagnostic Imaging Report ---
Exam: Ultrasound summation kidneys HISTORY: HISTORY of hydronephrosis. Findings: Real-time ultrasound summation kidneys performed multiple planes. The study correlated with previous exam of 07/20/2017. The study demonstrates evidence of obstructive uropathy, hydronephrosis right kidney. Right kidney measures 11.8 x 6.3 x 6.2 cm diameter. There is no evidence for nephrolithiasis. Left kidney measures 12.8 x 6.1 x 6.9 cm diameter. There is no evidence of obstructive uropathy or nephrolithiasis. The urinary bladder is intact. Ocampo catheter is noted. IMPRESSION: Compared to prior examination of 07/20/2017 persists in the right-sided hydronephrosis is noted.
[2017-07-27] MEDS: Potassium Chloride Elixir 20 mEq /15 mL UDC GT SCH ×2 (09:22→16:32)
[2017-07-27] MEDS: Multivitamin w/ Minerals Tab GT SCH (09:23)
[2017-07-27] MEDS: Menthol/Zinc Oxide Oint 113gm Tube TP SCH ×4 (09:25→21:03)
[2017-07-27] MEDS: Venelex 60gm Tube TP SCH (09:27)
[2017-07-27] MEDS: Insulin Detemir 100 units/mL 10mL Vial SUBQ SCH ×2 (09:57→17:13)
--- NOTE | 2017-07-27 13:04 | Internal Medicine Prog Note ---
Internal Medicine Subjective - Subjective Patient seen and examined:: with staff, chart reviewed Patient is:: awake, non-verbal, non-interactive, in bed, congested, stares blankly Patient Complaints of:: congestion, bloated Per staff patient has:: no adverse event, tolerating meds Internal Medicine Objective - Results Result Diagrams: 07/27/17 05:40 07/27/17 05:40 Recent Labs: Laboratory Last Values WBC 18.6 Th/cmm (4.8-10.8) H 07/27/17 05:40 RBC 3.40 Mil/cmm (3.80-5.10) L 07/27/17 05:40 Hgb 9.8 gm/dL (12-16) L 07/27/17 05:40 Hct 29.0 % (41.0-60) L D 07/27/17 05:40 MCV 85.2 fl (81-100) 07/27/17 05:40 MCH 28.7 pg (27.0-31.0) 07/27/17 05:40 MCHC Differential 33.7 pg (28.0-36.0) 07/27/17 05:40 RDW 13.6 % (11.5-20.0) 07/27/17 05:40 Plt Count 247 Th/cmm (150-400) 07/27/17 05:40 MPV 10.7 fl 07/27/17 05:40 Neutrophils % 77.3 % (40.0-80.0) 07/27/17 05:40 Band Neutrophils % 6 % (0-10) 07/26/17 04:15 Lymphocytes % 15.9 % (20.0-50.0) L 07/27/17 05:40 Monocytes % 4.0 % (2.0-10.0) 07/27/17 05:40 Eosinophils % 2.7 % (0.0-5.0) 07/27/17 05:40 Basophils % 0.1 % (0.0-2.0) 07/27/17 05:40 Neutrophils (Manual) 77 % (40-80) 07/26/17 04:15 Lymphocytes 13 % (20-50) L 07/26/17 04:15 Monocytes 1 % (2-10) L 07/26/17 04:15 Eosinophils 3 % (0-5) 07/26/17 04:15 Hypochromia 1+ 07/18/17 22:15 Platelet Estimate ADEQUATE (NORMAL) 07/23/17 04:33 Polychromasia 1+ 07/18/17 22:15 Smear Path Review YES 07/18/17 22:15 Eos Smear Source URINE 07/19/17 22:30 Eos Smear Total Cells NONE SEEN (NONE SEEN) 07/19/17 22:30 Specimen Source Arterial 07/25/17 14:15 Sample Site RIGHT BRACHIAL 07/25/17 14:15 pH 7.48 (7.35-7.45) H 07/25/17 14:15 pCO2 33.0 mmHg (35.0-45.0) L 07/25/17 14:15 pO2 144.0 mmHg (80.0-100.0) H 07/25/17 14:15 HCO3 26.1 mEq/L (20.0-26.0) H 07/25/17 14:15 Base Excess 1.5 mEq/L (-3.0-3.0) 07/25/17 14:15 O2 Saturation 99.0 % (92.0-100.0) 07/25/17 14:15 Cricket Test Positive 07/25/17 14:15 Vent Rate 12 07/25/17 14:15 Inspired O2 35 07/25/17 14:15 Tidal Volume 500 07/25/17 14:15 PEEP 5 07/25/17 14:15 Pressure (ins/psv/peep) N/A 07/25/17 14:15 Critical Value HSTEHNO 07/25/17 14:15 Sodium 132 mEq/L (136-145) L 07/27/17 05:40 Potassium 4.0 mEq/L (3.5-5.1) 07/27/17 05:40 Chloride 103 mEq/L (98-107) 07/27/17 05:40 Carbon Dioxide 20.7 mEq/L (21.0-31.0) L 07/27/17 05:40 Anion Gap 12.3 (7.0-16.0) 07/27/17 05:40 BUN 31 mg/dL (7-25) H 07/27/17 05:40 Creatinine 1.0 mg/dL (0.6-1.2) 07/27/17 05:40 Est GFR ( Amer) > 60.0 ml/min (>90) 07/27/17 05:40 Est GFR (Non-Af Amer) 59.7 ml/min 07/27/17 05:40 BUN/Creatinine Ratio 31.0 07/27/17 05:40 Glucose 93 mg/dL (70-105) 07/27/17 05:40 POC Glucose 140 MG/DL (70 - 105) H 07/27/17 11:49 Hemoglobin A1c % 6.2 % (4.0-6.0) H 07/18/17 23:30 Plasma/Ser Osmolality 344 mOsmol/kg (280-301) H 07/19/17 23:30 Whole Bld Lactic Acid 0.61 mmol/L (0.60-1.99) 07/20/17 04:10 Uric Acid 9.5 mg/dL (2.3-6.6) H 07/20/17 04:10 Calcium 8.4 mg/dL (8.6-10.3) L 07/27/17 05:40 Phosphorus 4.5 mg/dL (2.5-5.0) 07/20/17 04:10 Magnesium 1.9 mg/dL (1.9-2.7) 07/24/17 04:30 Total Bilirubin 0.3 mg/dL (0.3-1.0) 07/20/17 04:10 AST 8 U/L (13-39) L 07/20/17 04:10 ALT 14 U/L (7-52) 07/20/17 04:10 Alkaline Phosphatase 87 U/L (34-104) 07/20/17 04:10 Ammonia 46 umol/L (16-53) 07/25/17 06:13 Creatine Kinase 26 U/L (30-223) L 07/18/17 22:15 Troponin I 0.27 ng/mL (0.01-0.05) H* 07/18/17 22:15 B-Natriuretic Peptide 775.0 pg/mL (5.0-100.0) H 07/23/17 04:33 Total Protein 6.6 gm/dL (6.0-8.3) 07/20/17 04:10 Albumin 2.7 gm/dL (3.7-5.3) L 07/20/17 04:10 Globulin 3.9 gm/dL 07/20/17 04:10 Albumin/Globulin Ratio 0.7 (1.0-1.8) L 07/20/17 04:10 Vitamin B12 1119 pg/mL (232-1245) 07/23/17 04:33 Folic Acid >20.0 ng/mL (>3.0) 07/23/17 04:33 TSH 2.30 uIU/ml (0.34-5.60) 07/19/17 04:15 Urine Source [place] 07/18/17 21:30 Urine Color RED 07/18/17 21:30 Urine Clarity CLOUDY (CLEAR) H 07/18/17 21:30 Urine pH 7.5 (4.6 - 8.0) 07/18/17 21:30 Ur Specific [place] 1.025 (1.005-1.030) 07/18/17 21:30 Urine Protein >=300 mg/dL (NEGATIVE) 07/18/17 21:30 Urine Glucose (UA) NEGATIVE mg/dL (NEGATIVE) 07/18/17 21:30 Urine Ketones NEGATIVE mg/dL (NEGATIVE) 07/18/17 21:30 Urine Blood LARGE (NEGATIVE) H 07/18/17 21:30 Urine Nitrate NEGATIVE (NEGATIVE) 07/18/17 21:30 Urine Bilirubin NEGATIVE (NEGATIVE) 07/18/17 21:30 Urine Urobilinogen 0.2 E.U./dL (0.2 - 1.0) 07/18/17 21:30 Ur Leukocyte Esterase SMALL (NEGATIVE) H 07/18/17 21:30 Urine RBC 50-100 /hpf (0-5) H 07/18/17 21:30 Urine WBC 6-10 /hpf (0-5) H 07/18/17 21:30 Ur Epithelial Cells FEW /lpf (FEW) 07/18/17 21:30 Urine Bacteria MANY /hpf (NONE SEEN) 07/18/17 21:30 Ur Random Sodium 28 mmol/L 07/19/17 22:30 Urine Creatinine 26.3 mg/dl (Not Estab.) 07/19/17 22:30 Urine Microalbumin 2398.5 ug/mL (Not Estab.) 07/19/17 22:30 Microalb/Creat Ratio 9119.8 07/19/17 22:30 Stool Occult Blood NEGATIVE (NEGATIVE) 07/24/17 03:37 Vancomycin Trough 27.0 ug/mL (10-20) H 07/26/17 16:06 Random Vancomycin 26.6 ug/mL (5.0-40.0) 07/24/17 04:30 Blood Type O NEGATIVE 07/20/17 08:15 Antibody Screen NEGATIVE 07/20/17 08:15 - Physical Exam Vitals and I&O: Vital Signs Temp 98.2 F 07/27/17 10:00 Pulse 74 07/27/17 11:14 Resp 17 07/27/17 10:00 BP 134/65 07/27/17 10:00 Pulse Ox 100 07/27/17 11:14 Intake & Output 07/26/17 07/27/17 07/27/17 18:59 06:59 18:59 Intake Total 9864.582 1996.667 50 Output Total 1850 1900 Balance -564.167 -288.333 50 Weight (lbs) 73.482 kg 73.936 kg Intake: Intake, IV Amount 665.833 911.667 50 D5-0.45NS 1,000 ml @ 50 611.667 mls/hr IV .Q20H [facility] Rx#: [id number] Dextrose 5% 1,000 ml @ 70 565.833 mls/hr IV .[id number] [facility] Rx#:[id number] Piperacillin Sodium/ 100 50 50 Tazobact 2.25 gm In Dextrose 5% 50 ml @ 100 mls/hr IV Q8H [facility] Rx#: [id number] Vancomycin HCl 1 gm In 250 Dextrose 5% 250 ml @ 165 mls/hr IV Q36H [facility] Rx#: [id number] Tube Feeding 480 600 Other 140 100 Output: Urine 1850 1900 Other: # Bowel Movements 3 1 Stool Characteristics Liquid Liquid Liquid Mucoid Mucoid Mucoid Brown Brown Brown Active Medications: Current Medications Acetaminophen (Tylenol 650mg/20.3ml Suspension) 650 mg GT Q4H PRN PRN Reason: Pain or Fever >101 Stop: 09/16/17 23:47 Last Admin: 07/22/17 00:35 Dose: 650 mg Albuterol/Ipratropium (Duoneb Neb) 3 ml HHN Q6HRT [facility] Stop: 09/17/17 12:59 Last Admin: 07/27/17 07:21 Dose: 3 ml Albuterol/Ipratropium (Duoneb Neb) 3 ml HHN Q2HR PRN PRN Reason: Shortness of Breath Stop: 09/16/17 23:47 Ascorbic Acid (Vitamin C) 500 mg GT DAILY [facility] Stop: 09/17/17 08:59 Last Admin: 07/27/17 09:23 Dose: 500 mg Bisacodyl (Dulcolax 10 Mg Supp) 10 mg RC DAILY PRN PRN Reason: constip Stop: 09/16/17 23:47 Calamine/Phenol (Calmoseptine) 1 appl TP QID PRN PRN Reason: Skin Irritation Stop: 09/24/17 09:35 Calamine/Phenol (Calmoseptine) 1 appl TP QID [facility] Stop: 09/24/17 12:59 Last Admin: 07/27/17 12:03 Dose: 1 appl Carvedilol (Coreg) 6.25 mg GT BID [facility] Stop: 09/17/17 08:59 Last Admin: 07/27/17 09:23 Dose: 6.25 mg [place] Oil/[place]ese Balsam/Trypsin (Venelex) 1 appl TP DAILY [facility] Stop: 09/25/17 08:59 Last Admin: 07/27/17 09:27 Dose: 1 appl Chlorhexidine Gluconate (Peridex) 15 ml MM 0800,2000 [facility] Stop: 09/17/17 07:59 Last Admin: 07/27/17 08:20 Dose: 15 ml Docusate Sodium (Colace) 100 mg GT BID PRN PRN Reason: Constipation Famotidine (Pepcid) 20 mg GT Q12H [facility] Stop: 09/16/17 23:44 Last Admin: 07/27/17 11:45 Dose: 20 mg Guaifenesin (Robitussin) 200 mg PO Q4HR PRN PRN Reason: Cough or Congestion Stop: 09/16/17 23:54 Heparin Sodium (Porcine) (Heparin) 5,000 units SUBQ Q12HR [facility] Stop: 09/17/17 08:59 Last Admin: 07/27/17 09:26 Dose: 5,000 units Piperacillin Sod/Tazobactam (Sod 2.25 gm/ Dextrose) 50 mls @ 100 mls/hr IV Q8H [facility] Stop: 09/17/17 16:59 Last Infusion: 07/27/17 09:55 Dose: Infused Dextrose/Sodium Chloride (D5-0.45ns) 1,000 mls @ 50 mls/hr IV .Q20H [facility] Stop: 09/24/17 17:14 Last Infusion: 07/27/17 06:00 Dose: 50 mls/hr Vancomycin HCl 1 gm/ Dextrose 250 mls @ 165 mls/hr IV Q36H [facility] Stop: 09/24/17 20:59 Last Infusion: 07/26/17 22:05 Dose: Infused Insulin Aspart (Novolog) 0 units SUBQ Q6HR [facility] PRN Reason: Protocol Stop: 09/18/17 17:59 Last Admin: 07/27/17 11:50 Dose: Not Given Insulin Detemir (Levemir Insulin) 24 units SUBQ BID [facility]ELLE PRN Reason: Protocol Stop: 09/20/17 08:59 Last Admin: 07/27/17 09:57 Dose: 24 units Magnesium Hydroxide (Milk Of Magnesia) 30 ml GT HS PRN PRN Reason: Constipation Stop: 09/16/17 23:47 Metoclopramide HCl (Reglan) 10 mg GT Q8H [facility] Stop: 09/20/17 13:01 Last Admin: 07/27/17 12:04 Dose: 10 mg Miscellaneous (Vancomycin Iv Per Pharmacy) 1 ea PRN [facility] Stop: 09/16/17 23:44 Miscellaneous (Clinical Monitoring) 1 ea PRN PRN PRN Reason: RENAL DOSE ZOSYN Stop: 09/17/17 08:23 Miscellaneous (Probiotic Screen) 1 ea PRN PRN PRN Reason: PROTOCOL Stop: 09/17/17 10:14 Miscellaneous (Vte Chemical Prophylaxis Screen/ Admission) 1 ea PRN PRN PRN Reason: PROTOCOL Stop: 09/17/17 13:47 Morphine Sulfate (Morphine) 2 mg IVP Q4H PRN PRN Reason: Pain (Severe) Stop: 09/16/17 23:53 Last Admin: 07/24/17 23:27 Dose: 2 mg Ondansetron HCl (Zofran) 4 mg IV Q8H PRN PRN Reason: Nausea / Vomiting Stop: 09/16/17 23:54 Last Admin: 07/21/17 18:48 Dose: 4 mg Potassium Chloride (Potassium Chloride Elixir) 20 meq GT BID [facility] Stop: 08/01/17 17:01 Last Admin: 07/27/17 09:22 Dose: 20 meq Rifaximin (Xifaxan) 500 mg GT BID [facility] Stop: 09/24/17 16:59 Last Admin: 07/27/17 09:25 Dose: 500 mg Sodium Phosphate (Fleet Enema) 135 ml RC Q48H PRN PRN Reason: Constipation Stop: 09/16/17 23:47 Vancomycin HCl (Vancomycin Oral) 250 mg GT Q6HR [facility] Stop: 09/18/17 17:59 Last Admin: 07/27/17 11:45 Dose: 250 mg Zinc Sulfate (Zinc Sulfate) 220 mg GT DAILY [facility] Stop: 09/17/17 08:59 Last Admin: 07/27/17 09:23 Dose: 220 mg General: weak, congested, demented, obtunded HEENT: NC/AT, PERRLA Neck: Supple, + trach Lungs: rales, ronchi Cardiovascular: RRR, without murmur Abdomen: soft, non-tender, non-distended, +GT, positive bowel sound Extremities: excoriation, ulcers stage 3 Neurological: bedbound, spastic - Procedures Procedures: Procedures Procedure Code Date RESPIRATORY VENTILATION, GREATER THAN 96 CONSECUTIVE HOURS [id number] 07/18/17 Internal Medicine Assmt/Plan - Assessment Assessment: epsis cdiff chronic respiratory failure VDRF leukocytosis hematuria-improved htn dm2 cad chf anemia tracheostomy status hypokalemia acute renal insufficiency elevated troponin mild protein calorie malnutrition acute uti - Plan Plan: LTAC EVAL contact isolation continue with ivabx renal follow up monitor h/h follow up labs in am vent support continue current plan of care - Plan Plan: cont on iv abx monitor wbc cpm dw rn Nutritional Asmnt/Malnutr-PDOC - Dietary Evaluation Malnutrition Findings (Please click <Entered> for more info): Nutritional Asmnt/Malnutrition Start: 07/19/17 17: 24 Text: Status: Complete Freq: Document 07/19/17 17:25 [email or web address] (Rec: 07/19/17 17:43 [email or web address] [email or web address]) Nutritional Asmnt/Malnutrition Patient General Information Nutritional Screening High Risk Consult Diagnosis Sepsis, UTI Pertinent Medical Hx/Surgical Hx HTN, DM, CAD, CHF, chronic resperatory failure, anemia, PEG/Gtube, tracheostomy Subjective Information Consult received for elevated BG. Pt seen lying in bed, on vent, non verbal comminication noted. Not able to obtain nutrition hx. Spoke with RN, no nutrition plan at this time . Current Diet Order/ Nutrition Support NPO Pertinent Medications Vitamin C, novolog, cultrelle, reglan, vancomycin, , piperacillin, Nacl 0.9%, Zinc Pertinent Labs 07/19 Na 132, K 5.3, Cl 97L, BUN 137, Cr 2.7, Glu 353, POC 324-394, A1C 6.2 Nutritional Hx/Data Height 1.57 m Height (Calculated Centimeters) 157.5 Current Weight (lbs) 80.83 kg Weight (Calculated Kilograms) 80.8 Weight (Calculated Grams) 41452.2 [place] Body Weight 110 % [place] Body Weight 162 Body Mass Index (BMI) 32.5 Weight Status Obese GI Symptoms GI Symptoms None Last BM none Usual diet at home Glucerna 1.5 60ml/hr x 20hr daily at [facility] Skin Integrity/Comment: decubitus ulceration to sacrum Estimated Nutritional Goals BEE in Kcals: Adj wt of IBW Calories/Kcals/Kg 30-35 Kcals Calculated Protein: Adj wt of IBW Protein g/k.2-1.5 Protein Calculated 69-87 Fluid: ml Nutritional Problem 2. Problem Problem increased nutrition needs ( calorie and protein) Etiology increased metabolic demand for healing Signs/Symptoms: sepsis 1. Problem Problem altered nutrition related lab values Etiology hx of DM, acute renal insufficiency Signs/Symptoms: BUN 137, Cr 2.7, Glu 353, POC 324-394, A1C 6.2 Malnutrition Alert Protein-Calorie Malnutrition N/A Is there a minimum of two criteria No selected? Query Text:Check all the applicable criteria. A minimum of two criteria are recommended for diagnosis of either severe or non-severe malnutrition. Intervention/Recommendation Comments 1. Monitor NPO status. 2. If enteral feeding needed, recommend to start Diabetisource AC at 30ml/hr continuous. Increased to goal rate of 60ml/hr continuous as tolerated. This will provide 1728kcal, 86g protein and 1179ml water, meeting 100% of nutritional needs. 3. Monitor wt, labs and skin integrity 4. F/U as high risk in 2-3 days, 07/21-07/22 Expected Outcomes/Goals Expected Outcomes/Goals 1. Pt to meet at least 75% of nutritional needs in 2-3 days 2. Wt stability, skin to remain intact, labs to improve .
[2017-07-27] MEDS: D5-0.45NS 1,000 ML IV SCH (14:00)
--- NOTE | 2017-07-27 14:52 | History & Physical ---
ADMIT DATE: 07/27/2017 SURGICAL CONSULTATION REFERRING PHYSICIAN: Dr. Dunbar. REASON FOR CONSULTATION: Stage III or IV sacral decubitus ulcer. Thank you for referring this patient to me. This is a 62-year-old female with chronic respiratory failure, on vent support, 30% oxygen. The patient also has acute renal failure in addition. Other comorbidities include a sacral decubitus ulcer on a patient who is bedridden. The duration of this problem; however, is difficult to determine. Other comorbidities include CHF, coronary artery disease, diabetes mellitus and hypertension. LABORATORY STUDIES: Showed WBC at 18,600, hemoglobin of 9.8. The chemistry, the BUN is 31, creatinine 1.0. PHYSICAL EXAMINATION: There is a stage III or IV sacral decubitus ulcer. We will do a debridement and wound VAC application. JOB# [id number]
--- NOTE | 2017-07-27 21:04 | Progress Notes ---
DATE: 07/27/2017 PROBLEM LIST: 1. Chronic ventilator dependent. 2. Secondary infection, persistent leukocytosis. SYMPTOMS: Nil. Opens eyes barely, but no respiratory distress, etc. PHYSICAL EXAMINATION: VITAL SIGNS: Temperature is 97.5, blood pressure 177/84, saturation 100% on 30%. NECK: Veins not visualized. CHEST: Shows occasional rhonchi with diminished air entry. HEART: Regular. ABDOMEN: Soft, nontender. LABORATORY DATA: White count is 18,000, hemoglobin 9.8. Electrolytes: Sodium is 132. ASSESSMENT: The patient is clinically unchanged respiratory gallardo. PLANS AND SUGGESTIONS: We will go ahead and continue current treatment and discuss with Dr. Dunbar early in the day. JOB# [id number]
[2017-07-28] MEDS: INSULIN ASPART, RECOMBINANT 100 UNITS/ML SUBQ SCH ×4 (00:03→17:24)
[2017-07-28] MEDS: Albuterol/Ipratropium Neb 3 ML AERS HHN SCH ×4 (01:12→19:31)
--- NOTE | 2017-07-28 02:28 | Progress Notes ---
DATE: 07/27/2017 UROLOGY PROGRESS NOTE SUBJECTIVE: The patient is stable, but the decubitus needs debridement for which she is scheduled today in the operating room. PHYSICAL EXAMINATION: GENERAL: She is resting. VITAL SIGNS: Temperature 98.8, blood pressure 106/37, heart rate 67, saturating 100%, and respirations 17 on the ventilator. ABDOMEN: Soft, nondistended, and nontender. G-tube in place. The patient is n.p.o. EXTREMITIES: Trace edema. CARDIOVASCULAR: Heart sound is sinus rhythm, no murmur. LABORATORY DATA: Ultrasound was done yesterday, but we are having difficulty finding the result at this point. IMPRESSION: 1. Hydronephrosis unilateral secondary to neurogenic bladder on [place]campo catheter hopefully will respond. 2. Urinary tract infection and daily bladder irrigations doing much better. 3. Decubitus scheduled for debridement. 4. Diabetes. 5. Multiple sclerosis. 6. Stroke leading to neurogenic bladder. JOB# [id number]
[2017-07-28 05:46] LABS: HEMOGLOBIN 8.4 gm/dL (12-16); MEAN CELL VOLUME 85.6 fl (81-100); MEAN CORPUSCULAR HEMOGLOBIN 28.7 pg (27.0-31.0); MEAN CORPUSCULAR HGB CONC 33.5 pg (28.0-36.0); MEAN PLATELET VOLUME 11.2 fl; PLATELET COUNT 245 Th/cmm (150-400); RED BLOOD COUNT 2.93 Mil/cmm (3.80-5.10)
[2017-07-28 05:52] LABS: HEMATOCRIT 25.1 % (41.0-60); MANUAL DIFF REQUIRED? YES; WHITE BLOOD COUNT 18.2 Th/cmm (4.8-10.8)
[2017-07-28 05:59] LABS: ANION GAP 9.6 (7.0-16.0); BUN - UREA NITROGEN 30 mg/dL (7-25); CALCIUM SERUM 8.3 mg/dL (8.6-10.3); CARBON DIOXIDE 21.5 mEq/L (21.0-31.0); CHLORIDE 105 mEq/L (98-107); GFR AFRICAN-AMERICAN > 60.0 ml/min (>90); GFR NON AFRICAN-AMERICAN 59.7 ml/min; GLUCOSE 98 mg/dL (70-105); POTASSIUM SERUM 4.1 mEq/L (3.5-5.1); SODIUM SERUM 132 mEq/L (136-145)
[2017-07-28 06:17] LABS: BAND NEUTROPHILE 2 % (0-10); LYMPHOCYTE 17 % (20-50); MONOCYTE 3 % (2-10); NEUTROPHILS 78 % (40-80); TOTAL CELLS COUNTED 100
[2017-07-28 07:17] LABS: ALB/GLOB RATIO 0.8 (1.0-1.8); ALBUMIN 2.5 gm/dL (3.7-5.3); ALKALINE PHOSPHATASE 89 U/L (34-104); ANION GAP 10.5 (7.0-16.0); BILIRUBIN,TOTAL 0.3 mg/dL (0.3-1.0); BUN - UREA NITROGEN 31 mg/dL (7-25); CALCIUM SERUM 8.4 mg/dL (8.6-10.3); CARBON DIOXIDE 20.6 mEq/L (21.0-31.0); CHLORIDE 106 mEq/L (98-107); GFR AFRICAN-AMERICAN > 60.0 ml/min (>90); GFR NON AFRICAN-AMERICAN 59.7 ml/min; GLUCOSE 100 mg/dL (70-105); POTASSIUM SERUM 4.1 mEq/L (3.5-5.1); SGOT 10 U/L (13-39); SGPT/ALT 16 U/L (7-52); SODIUM SERUM 133 mEq/L (136-145); TOTAL PROTEIN,SERUM 5.7 gm/dL (6.0-8.3)
[2017-07-28] MEDS: Potassium Chloride Elixir 20 mEq /15 mL UDC GT SCH ×2 (09:00→17:05)
[2017-07-28] MEDS: Multivitamin w/ Minerals Tab GT SCH (09:00)
[2017-07-28] MEDS: Insulin Detemir 100 units/mL 10mL Vial SUBQ SCH ×2 (09:13→17:21)
[2017-07-28] MEDS: Chlorhexidine Gluconate 0.12% 15mL Mouthwash MM SCH ×2 (09:57→20:43)
[2017-07-28] MEDS: Menthol/Zinc Oxide Oint 113gm Tube TP SCH ×4 (10:00→23:03)
--- NOTE | 2017-07-28 14:55 | Internal Medicine Prog Note ---
Internal Medicine Subjective - Subjective Service Date: 07/28/17 Patient is:: awake, non-verbal, non-interactive, in bed, congested, stares blankly Patient Complaints of:: congestion, bloated Per staff patient has:: no adverse event, tolerating meds Internal Medicine Objective - Results Result Diagrams: 07/28/17 05:00 07/28/17 06:00 Recent Labs: Laboratory Last Values WBC 18.2 Th/cmm (4.8-10.8) H 07/28/17 05:00 RBC 2.93 Mil/cmm (3.80-5.10) L 07/28/17 05:00 Hgb 8.4 gm/dL (12-16) L 07/28/17 05:00 Hct 25.1 % (41.0-60) L D 07/28/17 05:00 MCV 85.6 fl (81-100) 07/28/17 05:00 MCH 28.7 pg (27.0-31.0) 07/28/17 05:00 MCHC Differential 33.5 pg (28.0-36.0) 07/28/17 05:00 RDW 14.0 % (11.5-20.0) 07/28/17 05:00 Plt Count 245 Th/cmm (150-400) 07/28/17 05:00 MPV 11.2 fl 07/28/17 05:00 Neutrophils % 77.3 % (40.0-80.0) 07/27/17 05:40 Band Neutrophils % 2 % (0-10) 07/28/17 05:00 Lymphocytes % 15.9 % (20.0-50.0) L 07/27/17 05:40 Monocytes % 4.0 % (2.0-10.0) 07/27/17 05:40 Eosinophils % 2.7 % (0.0-5.0) 07/27/17 05:40 Basophils % 0.1 % (0.0-2.0) 07/27/17 05:40 Neutrophils (Manual) 78 % (40-80) 07/28/17 05:00 Lymphocytes 17 % (20-50) L 07/28/17 05:00 Monocytes 3 % (2-10) 07/28/17 05:00 Eosinophils 3 % (0-5) 07/26/17 04:15 Hypochromia 1+ 07/18/17 22:15 Platelet Estimate ADEQUATE (NORMAL) 07/23/17 04:33 Polychromasia 1+ 07/18/17 22:15 Smear Path Review YES 07/18/17 22:15 Eos Smear Source URINE 07/19/17 22:30 Eos Smear Total Cells NONE SEEN (NONE SEEN) 07/19/17 22:30 Specimen Source Arterial 07/25/17 14:15 Sample Site RIGHT BRACHIAL 07/25/17 14:15 pH 7.48 (7.35-7.45) H 07/25/17 14:15 pCO2 33.0 mmHg (35.0-45.0) L 07/25/17 14:15 pO2 144.0 mmHg (80.0-100.0) H 07/25/17 14:15 HCO3 26.1 mEq/L (20.0-26.0) H 07/25/17 14:15 Base Excess 1.5 mEq/L (-3.0-3.0) 07/25/17 14:15 O2 Saturation 99.0 % (92.0-100.0) 07/25/17 14:15 Cricket Test Positive 07/25/17 14:15 Vent Rate 12 07/25/17 14:15 Inspired O2 35 07/25/17 14:15 Tidal Volume 500 07/25/17 14:15 PEEP 5 07/25/17 14:15 Pressure (ins/psv/peep) N/A 07/25/17 14:15 Critical Value HSTEHNO 07/25/17 14:15 Sodium 132 mEq/L (136-145) L 07/28/17 06:00 Potassium 4.1 mEq/L (3.5-5.1) 07/28/17 06:00 Chloride 105 mEq/L (98-107) 07/28/17 06:00 Carbon Dioxide 21.5 mEq/L (21.0-31.0) 07/28/17 06:00 Anion Gap 9.6 (7.0-16.0) 07/28/17 06:00 BUN 30 mg/dL (7-25) H 07/28/17 06:00 Creatinine 1.0 mg/dL (0.6-1.2) 07/28/17 06:00 Est GFR ( Amer) > 60.0 ml/min (>90) 07/28/17 06:00 Est GFR (Non-Af Amer) 59.7 ml/min 07/28/17 06:00 BUN/Creatinine Ratio 30.0 07/28/17 06:00 Glucose 98 mg/dL (70-105) 07/28/17 06:00 POC Glucose 154 MG/DL (70 - 105) H 07/28/17 12:31 Hemoglobin A1c % 6.2 % (4.0-6.0) H 07/18/17 23:30 Plasma/Ser Osmolality 344 mOsmol/kg (280-301) H 07/19/17 23:30 Whole Bld Lactic Acid 0.61 mmol/L (0.60-1.99) 07/20/17 04:10 Uric Acid 9.5 mg/dL (2.3-6.6) H 07/20/17 04:10 Calcium 8.3 mg/dL (8.6-10.3) L 07/28/17 06:00 Phosphorus 4.5 mg/dL (2.5-5.0) 07/20/17 04:10 Magnesium 1.8 mg/dL (1.9-2.7) L 07/28/17 05:00 Total Bilirubin 0.3 mg/dL (0.3-1.0) 07/28/17 05:00 AST 10 U/L (13-39) L 07/28/17 05:00 ALT 16 U/L (7-52) 07/28/17 05:00 Alkaline Phosphatase 89 U/L (34-104) 07/28/17 05:00 Ammonia 50 umol/L (16-53) 07/28/17 06:00 Creatine Kinase 26 U/L (30-223) L 07/18/17 22:15 Troponin I 0.27 ng/mL (0.01-0.05) H* 07/18/17 22:15 B-Natriuretic Peptide 233.0 pg/mL (5.0-100.0) H 07/28/17 06:00 Total Protein 5.7 gm/dL (6.0-8.3) L 07/28/17 05:00 Albumin 2.5 gm/dL (3.7-5.3) L 07/28/17 05:00 Globulin 3.2 gm/dL 07/28/17 05:00 Albumin/Globulin Ratio 0.8 (1.0-1.8) L 07/28/17 05:00 Vitamin B12 1119 pg/mL (232-1245) 07/23/17 04:33 Folic Acid >20.0 ng/mL (>3.0) 07/23/17 04:33 TSH 2.30 uIU/ml (0.34-5.60) 07/19/17 04:15 Urine Source [place] 07/18/17 21:30 Urine Color RED 07/18/17 21:30 Urine Clarity CLOUDY (CLEAR) H 07/18/17 21:30 Urine pH 7.5 (4.6 - 8.0) 07/18/17 21:30 Ur Specific [place] 1.025 (1.005-1.030) 07/18/17 21:30 Urine Protein >=300 mg/dL (NEGATIVE) 07/18/17 21:30 Urine Glucose (UA) NEGATIVE mg/dL (NEGATIVE) 07/18/17 21:30 Urine Ketones NEGATIVE mg/dL (NEGATIVE) 07/18/17 21:30 Urine Blood LARGE (NEGATIVE) H 07/18/17 21:30 Urine Nitrate NEGATIVE (NEGATIVE) 07/18/17 21:30 Urine Bilirubin NEGATIVE (NEGATIVE) 07/18/17 21:30 Urine Urobilinogen 0.2 E.U./dL (0.2 - 1.0) 07/18/17 21:30 Ur Leukocyte Esterase SMALL (NEGATIVE) H 07/18/17 21:30 Urine RBC 50-100 /hpf (0-5) H 07/18/17 21:30 Urine WBC 6-10 /hpf (0-5) H 07/18/17 21:30 Ur Epithelial Cells FEW /lpf (FEW) 07/18/17 21:30 Urine Bacteria MANY /hpf (NONE SEEN) 07/18/17 21:30 Ur Random Sodium 28 mmol/L 07/19/17 22:30 Urine Creatinine 26.3 mg/dl (Not Estab.) 07/19/17 22:30 Urine Microalbumin 2398.5 ug/mL (Not Estab.) 07/19/17 22:30 Microalb/Creat Ratio 9119.8 07/19/17 22:30 Stool Occult Blood NEGATIVE (NEGATIVE) 07/24/17 03:37 Vancomycin Trough 17.5 ug/mL (10-20) 07/28/17 08:10 Random Vancomycin 26.6 ug/mL (5.0-40.0) 07/24/17 04:30 Blood Type O NEGATIVE 07/20/17 08:15 Antibody Screen NEGATIVE 07/20/17 08:15 - Physical Exam Vitals and I&O: Vital Signs Temp 97.8 F 07/28/17 04:00 Pulse 67 07/28/17 14:53 Resp 20 07/28/17 14:00 BP 134/41 07/28/17 14:00 Pulse Ox 100 07/28/17 14:53 Intake & Output 07/27/17 07/28/17 07/28/17 18:59 06:59 18:59 Intake Total 6902.171 9228 50 Output Total 1050 1800 Balance 238.333 -150 50 Weight (lbs) 165 lb 163 lb Intake: Intake, IV Amount 488.333 850 50 D5-0.45NS 1,000 ml @ 50 388.333 800 mls/hr IV .Q20H [facility] Rx#: [id number] Piperacillin Sodium/ 100 50 50 Tazobact 2.25 gm In Dextrose 5% 50 ml @ 100 mls/hr IV Q8H [facility] Rx#: [id number] Oral 0 Tube Feeding 500 600 Other 300 200 Output: Urine 1050 1350 Stool 450 Other: Stool Characteristics Liquid Liquid Liquid Mucoid Mucoid Mucoid Brown Brown Brown Active Medications: Current Medications Acetaminophen (Tylenol 650mg/20.3ml Suspension) 650 mg GT Q4H PRN PRN Reason: Pain or Fever >101 Stop: 09/16/17 23:47 Last Admin: 07/22/17 00:35 Dose: 650 mg Albuterol/Ipratropium (Duoneb Neb) 3 ml HHN Q6HRT [facility] Stop: 09/17/17 12:59 Last Admin: 07/28/17 13:23 Dose: 3 ml Albuterol/Ipratropium (Duoneb Neb) 3 ml HHN Q2HR PRN PRN Reason: Shortness of Breath Stop: 09/16/17 23:47 Ascorbic Acid (Vitamin C) 500 mg GT DAILY [facility]ELLE Stop: 09/17/17 08:59 Last Admin: 07/28/17 09:00 Dose: 500 mg Bisacodyl (Dulcolax 10 Mg Supp) 10 mg RC DAILY PRN PRN Reason: constip Stop: 09/16/17 23:47 Calamine/Phenol (Calmoseptine) 1 appl TP QID PRN PRN Reason: Skin Irritation Stop: 09/24/17 09:35 Calamine/Phenol (Calmoseptine) 1 appl TP QID [facility] Stop: 09/24/17 12:59 Last Admin: 07/28/17 10:00 Dose: Not Given Carvedilol (Coreg) 6.25 mg GT BID [facility] Stop: 09/17/17 08:59 Last Admin: 07/28/17 08:59 Dose: 6.25 mg [place] Oil/Hungarian Balsam/Trypsin (Venelex) 1 appl TP DAILY [facility] Stop: 09/25/17 08:59 Last Admin: 07/27/17 09:27 Dose: 1 appl Chlorhexidine Gluconate (Peridex) 15 ml MM 0800,1999 [facility] Stop: 09/17/17 07:59 Last Admin: 07/28/17 09:57 Dose: 15 ml Docusate Sodium (Colace) 100 mg GT BID PRN PRN Reason: Constipation Famotidine (Pepcid) 20 mg GT Q12H [facility] Stop: 09/16/17 23:44 Last Admin: 07/28/17 11:49 Dose: 20 mg Guaifenesin (Robitussin) 200 mg PO Q4HR PRN PRN Reason: Cough or Congestion Stop: 09/16/17 23:54 Heparin Sodium (Porcine) (Heparin) 5,000 units SUBQ Q12HR [facility] Stop: 09/17/17 08:59 Last Admin: 07/28/17 09:07 Dose: 5,000 units Piperacillin Sod/Tazobactam (Sod 2.25 gm/ Dextrose) 50 mls @ 100 mls/hr IV Q8H [facility] Stop: 09/17/17 16:59 Last Infusion: 07/28/17 11:50 Dose: Infused Dextrose/Sodium Chloride (D5-0.45ns) 1,000 mls @ 50 mls/hr IV .Q20H [facility] Stop: 09/24/17 17:14 Last Infusion: 07/28/17 06:00 Dose: 50 mls/hr Vancomycin HCl 1 gm/ Dextrose 250 mls @ 165 mls/hr IV Q36H [facility] Stop: 09/24/17 20:59 Last Admin: 07/28/17 11:48 Dose: 165 mls/hr Insulin Aspart (Novolog) 0 units SUBQ Q6HR [facility] PRN Reason: Protocol Stop: 09/18/17 17:59 Last Admin: 07/28/17 12:35 Dose: 3 units Insulin Detemir (Levemir Insulin) 24 units SUBQ BID [facility]ABELLE PRN Reason: Protocol Stop: 09/20/17 08:59 Last Admin: 07/28/17 09:13 Dose: Not Given Magnesium Hydroxide (Milk Of Magnesia) 30 ml GT HS PRN PRN Reason: Constipation Stop: 09/16/17 23:47 Metoclopramide HCl (Reglan) 10 mg GT Q8H [facility] Stop: 09/20/17 13:01 Last Admin: 07/28/17 12:39 Dose: 10 mg Miscellaneous (Vancomycin Iv Per Pharmacy) 1 ea PRN [facility] Stop: 09/16/17 23:44 Miscellaneous (Clinical Monitoring) 1 ea PRN PRN PRN Reason: RENAL DOSE ZOSYN Stop: 09/17/17 08:23 Miscellaneous (Probiotic Screen) 1 ea PRN PRN PRN Reason: PROTOCOL Stop: 09/17/17 10:14 Miscellaneous (Vte Chemical Prophylaxis Screen/ Admission) 1 ea PRN PRN PRN Reason: PROTOCOL Stop: 09/17/17 13:47 Morphine Sulfate (Morphine) 2 mg IVP Q4H PRN PRN Reason: Pain (Severe) Stop: 09/16/17 23:53 Last Admin: 07/24/17 23:27 Dose: 2 mg Ondansetron HCl (Zofran) 4 mg IV Q8H PRN PRN Reason: Nausea / Vomiting Stop: 09/16/17 23:54 Last Admin: 07/21/17 18:48 Dose: 4 mg Potassium Chloride (Potassium Chloride Elixir) 20 meq GT BID [facility] Stop: 08/01/17 17:01 Last Admin: 07/28/17 09:00 Dose: 20 meq Rifaximin (Xifaxan) 500 mg GT BID [facility] Stop: 09/24/17 16:59 Last Admin: 07/28/17 11:50 Dose: 500 mg Sodium Phosphate (Fleet Enema) 135 ml RC Q48H PRN PRN Reason: Constipation Stop: 09/16/17 23:47 Zinc Sulfate (Zinc Sulfate) 220 mg GT DAILY [facility] Stop: 09/17/17 08:59 Last Admin: 07/28/17 09:00 Dose: 220 mg General: weak, congested, demented, obtunded HEENT: NC/AT, PERRLA Neck: Supple, + trach Lungs: rales, ronchi Cardiovascular: RRR, without murmur Abdomen: soft, non-tender, non-distended, +GT, positive bowel sound Extremities: excoriation, ulcers stage 3 Neurological: bedbound, spastic - Procedures Procedures: Procedures Procedure Code Date RESPIRATORY VENTILATION, GREATER THAN 96 CONSECUTIVE HOURS [id number] 07/18/17 Internal Medicine Assmt/Plan - Assessment Assessment: sepsis cdiff chronic respiratory failure VDRF leukocytosis hematuria-improved htn dm2 cad chf anemia tracheostomy status hypokalemia acute renal insufficiency elevated troponin mild protein calorie malnutrition acute uti - Plan Plan: LTAC EVAL contact isolation continue with ivabx renal follow up monitor h/h follow up labs in am vent support continue current plan of care Nutritional Asmnt/Malnutr-PDOC - Dietary Evaluation Malnutrition Findings (Please click <Entered> for more info): Nutritional Asmnt/Malnutrition Start: 07/19/17 17: 24 Text: Status: Complete Freq: Document 07/19/17 17:25 LCHENG (Rec: 07/19/17 17:43 LCHENG [email or web address]) Nutritional Asmnt/Malnutrition Patient General Information Nutritional Screening High Risk Consult Diagnosis Sepsis, UTI Pertinent Medical Hx/Surgical Hx HTN, DM, CAD, CHF, chronic resperatory failure, anemia, PEG/Gtube, tracheostomy Subjective Information Consult received for elevated BG. Pt seen lying in bed, on vent, non verbal comminication noted. Not able to obtain nutrition hx. Spoke with RN, no nutrition plan at this time . Current Diet Order/ Nutrition Support NPO Pertinent Medications Vitamin C, novolog, cultrelle, reglan, vancomycin, , piperacillin, Nacl 0.9%, Zinc Pertinent Labs 07/19 Na 132, K 5.3, Cl 97L, BUN 137, Cr 2.7, Glu 353, POC 324-394, A1C 6.2 Nutritional Hx/Data Height 5 ft 2 in Height (Calculated Centimeters) 157.5 Current Weight (lbs) 178 lb 3.2 oz Weight (Calculated Kilograms) 80.8 Weight (Calculated Grams) 16923.2 [place] Body Weight 110 % [place] Body Weight 162 Body Mass Index (BMI) 32.5 Weight Status Obese GI Symptoms GI Symptoms None Last BM none Usual diet at home Glucerna 1.5 60ml/hr x 20hr daily at [facility] Skin Integrity/Comment: decubitus ulceration to sacrum Estimated Nutritional Goals BEE in Kcals: Adj wt of IBW Calories/Kcals/Kg 30-35 Kcals Calculated Protein: Adj wt of IBW Protein g/k.2-1.5 Protein Calculated 69-87 Fluid: ml Nutritional Problem 2. Problem Problem increased nutrition needs ( calorie and protein) Etiology increased metabolic demand for healing Signs/Symptoms: sepsis 1. Problem Problem altered nutrition related lab values Etiology hx of DM, acute renal insufficiency Signs/Symptoms: BUN 137, Cr 2.7, Glu 353, POC 324-394, A1C 6.2 Malnutrition Alert Protein-Calorie Malnutrition N/A Is there a minimum of two criteria No selected? Query Text:Check all the applicable criteria. A minimum of two criteria are recommended for diagnosis of either severe or non-severe malnutrition. Intervention/Recommendation Comments 1. Monitor NPO status. 2. If enteral feeding needed, recommend to start Diabetisource AC at 30ml/hr continuous. Increased to goal rate of 60ml/hr continuous as tolerated. This will provide 1728kcal, 86g protein and 1179ml water, meeting 100% of nutritional needs. 3. Monitor wt, labs and skin integrity 4. F/U as high risk in 2-3 days, 07/21-07/22 Expected Outcomes/Goals Expected Outcomes/Goals 1. Pt to meet at least 75% of nutritional needs in 2-3 days 2. Wt stability, skin to remain intact, labs to improve .
[2017-07-28] MEDS: Venelex 60gm Tube TP SCH (15:00)
--- NOTE | 2017-07-28 17:54 | Operative Report ---
DATE OF SURGERY: 07/28/2017 PREOPERATIVE DIAGNOSES: 1. Stage III sacral decubitus ulcer. 2. Congestive heart failure. 3. Respiratory failure, on vent support. 4. Diabetes mellitus. 5. Hypertension. POSTOPERATIVE DIAGNOSES: 1. Stage III sacral decubitus ulcer. 2. Congestive heart failure. 3. Respiratory failure, on vent support. 4. Diabetes mellitus. 5. Hypertension. OPERATION DONE: 1. Excisional debridement of stage III sacral decubitus ulcer. 2. Local wound treatment. SURGEON: Alannah Griggs M.D. ANESTHESIA: MAC. ANESTHESIOLOGIST: Dr. Li. INDICATIONS FOR SURGERY: Stage II to III sacral decubitus ulcer present for questionable period of time. WBC was 18,600. BUN high at 31. OPERATIVE FINDINGS: Stage III sacral decubitus ulcer, size 5 x 6 cm depth to the subcutaneous tissues with necrotic tissues present. DESCRIPTION OF PROCEDURE: The patient was given IV sedation. She was then placed in the left lateral decubitus position. The ulcer was prepped with Betadine and draped. Knife was used to excise all tissues, following which cautery was used to control bleeding. Because of the depth to only about a cm, no wound VAC was applied. Local wound care will be ordered. [facility]# [id number]
[2017-07-29] MEDS: Albuterol/Ipratropium Neb 3 ML AERS HHN SCH ×5 (00:43→18:51)
[2017-07-29] MEDS: INSULIN ASPART, RECOMBINANT 100 UNITS/ML SUBQ SCH ×4 (00:53→17:00)
--- NOTE | 2017-07-29 01:25 | Progress Notes ---
DATE: 07/28/2017 UROLOGY PROGRESS NOTE SUBJECTIVE: The patient had sacral decubitus debridement yesterday following which she has remained stable without fever and hemodynamically no change. The Ocampo is being irrigated well and G-tube feedings at 40 mL an hour are going on. PHYSICAL EXAMINATION: VITAL SIGNS: Blood pressure 143/78, temperature 98.7, heart rate in the 60s, sinus rhythm, ventilator settings are unchanged with a FIO2 of 30%, tidal volume 500, PEEP of 5, assist rate of 12, saturating 100%. ABDOMEN: Soft, nontender, nondistended. Ocampo catheter, no blood. EXTREMITIES: Trace edema. LABORATORY DATA: White count 18.2, slight improvement. BUN 30, creatinine 1.0. Ultrasound yesterday did show persistent right hydronephrosis, which is somewhat worrisome and difficult to explain. The only way we will be able to resolve this further is via cystoscopy and retrograde pyelogram or by percutaneous nephrostomy. I am hesitant to subject her to any of these procedures given her general condition, but if the white count does not improve, we may be forced to choose one of these options. IMPRESSION: 1. Neurogenic bladder with urinary tract infection relatively stable with daily irrigations and Ocampo catheter. 2. Diabetes. 3. Multiple sclerosis. 4. Dementia. 5. History of congestive heart failure and coronary artery disease, stable. 6. Lastly, tracheostomy and G-tube status. No major change. [facility]# [id number]
--- NOTE | 2017-07-29 01:54 | Progress Notes ---
DATE: 07/28/2017 PROBLEM LIST: 1. Acute on chronic respiratory failure. 2. Leukocytosis. 3. Altered level of consciousness, noncommunicative. PHYSICAL EXAMINATION: GENERAL: Noncommunicative, not in any distress. VITAL SIGNS: Temperature is 97, heart rate is in 60s, blood pressure 160/78, saturation 100% on 30% on the ventilator. NECK: Veins not visualized. CHEST: Shows occasional rhonchi with diminished air entry. HEART: Regular. ABDOMEN: Soft, nontender. LABORATORY DATA: White count is 18,000, hemoglobin 8.4, and electrolytes are okay. ASSESSMENT: The patient is clinically not much changed, stable. Leukocytosis is improving. PLANS AND SUGGESTIONS: Continue current treatment and no change in respiratory gallardo or ventilator changes. JOB# [id number]
[2017-07-29 05:01] LABS: BASOPHILE ABSOLUTE 0.2 Th/cumm (0-0.2); EOSINOPHILE ABSOLUTE 0.4 Th/cmm (0.1-0.4); HEMATOCRIT 26.1 % (41.0-60); HEMOGLOBIN 8.8 gm/dL (12-16); MANUAL DIFF REQUIRED? YES; MEAN CELL VOLUME 84.9 fl (81-100); MEAN CORPUSCULAR HEMOGLOBIN 28.8 pg (27.0-31.0); MEAN CORPUSCULAR HGB CONC 33.9 pg (28.0-36.0); MEAN PLATELET VOLUME 11.3 fl; MONOCYTE ABSOLUTE 0.8 Th/cmm (0.3-1.0); NEUTROPHILE ABSOLUTE 22.6 Th/cmm (1.8-8.0); PLATELET COUNT 252 Th/cmm (150-400); RED BLOOD COUNT 3.07 Mil/cmm (3.80-5.10); RED CELL DISTRIBUTION WIDTH 14.6 % (11.5-20.0)
[2017-07-29 05:19] LABS: ANION GAP 12.6 (7.0-16.0); CALCIUM SERUM 8.6 mg/dL (8.6-10.3); CARBON DIOXIDE 20.8 mEq/L (21.0-31.0); CREATININE - SERUM 1.2 mg/dL (0.6-1.2); GFR AFRICAN-AMERICAN 58.5 ml/min (>90); GFR NON AFRICAN-AMERICAN 48.4 ml/min; POTASSIUM SERUM 4.4 mEq/L (3.5-5.1)
[2017-07-29 05:54] LABS: BAND NEUTROPHILE 3 % (0-10); LYMPHOCYTE 17 % (20-50); NEUTROPHILS 73 % (40-80); TOTAL CELLS COUNTED 100
[2017-07-29 05:55] LABS: MONOCYTE 7 % (2-10)
[2017-07-29] MEDS: D5-0.45NS 1,000 ML IV SCH (06:43)
[2017-07-29] MEDS: Chlorhexidine Gluconate 0.12% 15mL Mouthwash MM SCH ×2 (08:30→20:15)
[2017-07-29] MEDS: Multivitamin w/ Minerals Tab GT SCH (09:16)
[2017-07-29] MEDS: Potassium Chloride Elixir 20 mEq /15 mL UDC GT SCH ×2 (09:16→16:30)
[2017-07-29] MEDS: Insulin Detemir 100 units/mL 10mL Vial SUBQ SCH ×2 (09:19→16:55)
--- NOTE | 2017-07-29 12:14 | Internal Medicine Prog Note ---
Internal Medicine Subjective - Subjective Service Date: 07/29/17 Patient is:: awake, non-verbal, non-interactive, in bed, congested, stares blankly Patient Complaints of:: congestion, bloated Per staff patient has:: no adverse event, tolerating meds Internal Medicine Objective - Results Result Diagrams: 07/29/17 04:22 07/29/17 04:22 Recent Labs: Laboratory Last Values WBC 28.0 Th/cmm (4.8-10.8) H* 07/29/17 04:22 RBC 3.07 Mil/cmm (3.80-5.10) L 07/29/17 04:22 Hgb 8.8 gm/dL (12-16) L 07/29/17 04:22 Hct 26.1 % (41.0-60) L 07/29/17 04:22 MCV 84.9 fl (81-100) 07/29/17 04:22 MCH 28.8 pg (27.0-31.0) 07/29/17 04:22 MCHC Differential 33.9 pg (28.0-36.0) 07/29/17 04:22 RDW 14.6 % (11.5-20.0) 07/29/17 04:22 Plt Count 252 Th/cmm (150-400) 07/29/17 04:22 MPV 11.3 fl 07/29/17 04:22 Neutrophils % 77.3 % (40.0-80.0) 07/27/17 05:40 Band Neutrophils % 3 % (0-10) 07/29/17 04:22 Lymphocytes % 15.9 % (20.0-50.0) L 07/27/17 05:40 Monocytes % 4.0 % (2.0-10.0) 07/27/17 05:40 Eosinophils % 2.7 % (0.0-5.0) 07/27/17 05:40 Basophils % 0.1 % (0.0-2.0) 07/27/17 05:40 Neutrophils (Manual) 73 % (40-80) 07/29/17 04:22 Lymphocytes 17 % (20-50) L 07/29/17 04:22 Monocytes 7 % (2-10) 07/29/17 04:22 Eosinophils 3 % (0-5) 07/26/17 04:15 Hypochromia 1+ 07/18/17 22:15 Platelet Estimate ADEQUATE (NORMAL) 07/23/17 04:33 Polychromasia 1+ 07/18/17 22:15 Smear Path Review YES 07/18/17 22:15 Eos Smear Source URINE 07/19/17 22:30 Eos Smear Total Cells NONE SEEN (NONE SEEN) 07/19/17 22:30 Specimen Source Arterial 07/25/17 14:15 Sample Site RIGHT BRACHIAL 07/25/17 14:15 pH 7.48 (7.35-7.45) H 07/25/17 14:15 pCO2 33.0 mmHg (35.0-45.0) L 07/25/17 14:15 pO2 144.0 mmHg (80.0-100.0) H 07/25/17 14:15 HCO3 26.1 mEq/L (20.0-26.0) H 07/25/17 14:15 Base Excess 1.5 mEq/L (-3.0-3.0) 07/25/17 14:15 O2 Saturation 99.0 % (92.0-100.0) 07/25/17 14:15 Cricket Test Positive 07/25/17 14:15 Vent Rate 12 07/25/17 14:15 Inspired O2 35 07/25/17 14:15 Tidal Volume 500 07/25/17 14:15 PEEP 5 07/25/17 14:15 Pressure (ins/psv/peep) N/A 07/25/17 14:15 Critical Value HSTEHNO 07/25/17 14:15 Sodium 134 mEq/L (136-145) L 07/29/17 04:22 Potassium 4.4 mEq/L (3.5-5.1) 07/29/17 04:22 Chloride 105 mEq/L (98-107) 07/29/17 04:22 Carbon Dioxide 20.8 mEq/L (21.0-31.0) L 07/29/17 04:22 Anion Gap 12.6 (7.0-16.0) 07/29/17 04:22 BUN 31 mg/dL (7-25) H 07/29/17 04:22 Creatinine 1.2 mg/dL (0.6-1.2) 07/29/17 04:22 Est GFR ( Amer) 58.5 ml/min (>90) 07/29/17 04:22 Est GFR (Non-Af Amer) 48.4 ml/min 07/29/17 04:22 BUN/Creatinine Ratio 25.8 07/29/17 04:22 Glucose 117 mg/dL (70-105) H 07/29/17 04:22 POC Glucose 153 MG/DL (70 - 105) H 07/29/17 09:14 Hemoglobin A1c % 6.2 % (4.0-6.0) H 07/18/17 23:30 Plasma/Ser Osmolality 344 mOsmol/kg (280-301) H 07/19/17 23:30 Whole Bld Lactic Acid 0.61 mmol/L (0.60-1.99) 07/20/17 04:10 Uric Acid 9.5 mg/dL (2.3-6.6) H 07/20/17 04:10 Calcium 8.6 mg/dL (8.6-10.3) 07/29/17 04:22 Phosphorus 4.5 mg/dL (2.5-5.0) 07/20/17 04:10 Magnesium 1.8 mg/dL (1.9-2.7) L 07/28/17 05:00 Total Bilirubin 0.3 mg/dL (0.3-1.0) 07/28/17 05:00 AST 10 U/L (13-39) L 07/28/17 05:00 ALT 16 U/L (7-52) 07/28/17 05:00 Alkaline Phosphatase 89 U/L (34-104) 07/28/17 05:00 Ammonia 50 umol/L (16-53) 07/28/17 06:00 Creatine Kinase 26 U/L (30-223) L 07/18/17 22:15 Troponin I 0.27 ng/mL (0.01-0.05) H* 07/18/17 22:15 B-Natriuretic Peptide 233.0 pg/mL (5.0-100.0) H 07/28/17 06:00 Total Protein 5.7 gm/dL (6.0-8.3) L 07/28/17 05:00 Albumin 2.5 gm/dL (3.7-5.3) L 07/28/17 05:00 Globulin 3.2 gm/dL 07/28/17 05:00 Albumin/Globulin Ratio 0.8 (1.0-1.8) L 07/28/17 05:00 Vitamin B12 1119 pg/mL (232-1245) 07/23/17 04:33 Folic Acid >20.0 ng/mL (>3.0) 07/23/17 04:33 TSH 2.30 uIU/ml (0.34-5.60) 07/19/17 04:15 Urine Source [place] 07/18/17 21:30 Urine Color RED 07/18/17 21:30 Urine Clarity CLOUDY (CLEAR) H 07/18/17 21:30 Urine pH 7.5 (4.6 - 8.0) 07/18/17 21:30 Ur Specific [place] 1.025 (1.005-1.030) 07/18/17 21:30 Urine Protein >=300 mg/dL (NEGATIVE) 07/18/17 21:30 Urine Glucose (UA) NEGATIVE mg/dL (NEGATIVE) 07/18/17 21:30 Urine Ketones NEGATIVE mg/dL (NEGATIVE) 07/18/17 21:30 Urine Blood LARGE (NEGATIVE) H 07/18/17 21:30 Urine Nitrate NEGATIVE (NEGATIVE) 07/18/17 21:30 Urine Bilirubin NEGATIVE (NEGATIVE) 07/18/17 21:30 Urine Urobilinogen 0.2 E.U./dL (0.2 - 1.0) 07/18/17 21:30 Ur Leukocyte Esterase SMALL (NEGATIVE) H 07/18/17 21:30 Urine RBC 50-100 /hpf (0-5) H 07/18/17 21:30 Urine WBC 6-10 /hpf (0-5) H 07/18/17 21:30 Ur Epithelial Cells FEW /lpf (FEW) 07/18/17 21:30 Urine Bacteria MANY /hpf (NONE SEEN) 07/18/17 21:30 Ur Random Sodium 28 mmol/L 07/19/17 22:30 Urine Creatinine 26.3 mg/dl (Not Estab.) 07/19/17 22:30 Urine Microalbumin 2398.5 ug/mL (Not Estab.) 07/19/17 22:30 Microalb/Creat Ratio 9119.8 07/19/17 22:30 Stool Occult Blood NEGATIVE (NEGATIVE) 07/24/17 03:37 Vancomycin Trough 17.5 ug/mL (10-20) 07/28/17 08:10 Random Vancomycin 26.6 ug/mL (5.0-40.0) 07/24/17 04:30 Blood Type O NEGATIVE 07/20/17 08:15 Antibody Screen NEGATIVE 07/20/17 08:15 - Physical Exam Vitals and I&O: Vital Signs Temp 98 F 07/29/17 08:00 Pulse 70 07/29/17 10:51 Resp 12 07/29/17 10:00 BP 146/42 07/29/17 10:38 Pulse Ox 100 07/29/17 10:51 Intake & Output 07/28/17 07/29/17 07/29/17 18:59 06:59 18:59 Intake Total 1500 700.833 Output Total 1600 1650 Balance -100 -949.167 Weight (lbs) 163 lb 160 lb Intake: Intake, IV Amount 500 100.833 D5-0.45NS 1,000 ml @ 50 200 0.833 mls/hr IV .Q20H [facility] Rx#: [id number] Piperacillin Sodium/ 50 100.000 Tazobact 2.25 gm In Dextrose 5% 50 ml @ 100 mls/hr IV Q8H [facility] Rx#: [id number] Vancomycin HCl 1 gm In 250 Dextrose 5% 250 ml @ 165 mls/hr IV Q36H [facility] Rx#: [id number] Tube Feeding 600 600 Other 400 Output: Urine 1600 1600 Stool 50 Other: # Bowel Movements 1 Stool Characteristics Liquid Soft Soft Mucoid Brown Brown Brown Active Medications: Current Medications Acetaminophen (Tylenol 650mg/20.3ml Suspension) 650 mg GT Q4H PRN PRN Reason: Pain or Fever >101 Stop: 09/16/17 23:47 Last Admin: 07/22/17 00:35 Dose: 650 mg Albuterol/Ipratropium (Duoneb Neb) 3 ml HHN Q6HRT [facility] Stop: 09/17/17 12:59 Last Admin: 07/29/17 07:11 Dose: 3 ml Albuterol/Ipratropium (Duoneb Neb) 3 ml HHN Q2HR PRN PRN Reason: Shortness of Breath Stop: 09/16/17 23:47 Ascorbic Acid (Vitamin C) 500 mg GT DAILY [facility] Stop: 09/17/17 08:59 Last Admin: 07/29/17 09:16 Dose: 500 mg Bisacodyl (Dulcolax 10 Mg Supp) 10 mg RC DAILY PRN PRN Reason: constip Stop: 09/16/17 23:47 Calamine/Phenol (Calmoseptine) 1 appl TP QID PRN PRN Reason: Skin Irritation Stop: 09/24/17 09:35 Calamine/Phenol (Calmoseptine) 1 appl TP QID [facility] Stop: 09/24/17 12:59 Last Admin: 07/28/17 23:03 Dose: 1 appl Carvedilol (Coreg) 6.25 mg GT BID [facility] Stop: 09/17/17 08:59 Last Admin: 07/29/17 10:38 Dose: 6.25 mg [place] Oil/Turkmen Balsam/Trypsin (Venelex) 1 appl TP DAILY [facility] Stop: 09/25/17 08:59 Last Admin: 07/28/17 15:00 Dose: 1 appl Chlorhexidine Gluconate (Peridex) 15 ml MM 08,1999 [facility] Stop: 09/17/17 07:59 Last Admin: 07/29/17 08:30 Dose: 15 ml Docusate Sodium (Colace) 100 mg GT BID PRN PRN Reason: Constipation Famotidine (Pepcid) 20 mg GT Q12H [facility] Stop: 09/16/17 23:44 Last Admin: 07/28/17 23:01 Dose: 20 mg Guaifenesin (Robitussin) 200 mg PO Q4HR PRN PRN Reason: Cough or Congestion Stop: 09/16/17 23:54 Heparin Sodium (Porcine) (Heparin) 5,000 units SUBQ Q12HR [facility] Stop: 09/17/17 08:59 Last Admin: 07/29/17 09:18 Dose: 5,000 units Piperacillin Sod/Tazobactam (Sod 2.25 gm/ Dextrose) 50 mls @ 100 mls/hr IV Q8H [facility] Stop: 09/17/17 16:59 Last Admin: 07/29/17 10:27 Dose: 100 mls/hr Dextrose/Sodium Chloride (D5-0.45ns) 1,000 mls @ 50 mls/hr IV .Q20H [facility] Stop: 09/24/17 17:14 Last Infusion: 07/29/17 06:44 Dose: 50 mls/hr Vancomycin HCl 1 gm/ Dextrose 250 mls @ 165 mls/hr IV Q36H [facility] Stop: 09/24/17 20:59 Last Infusion: 07/28/17 15:42 Dose: Infused Insulin Aspart (Novolog) 0 units SUBQ Q6HR [facility] PRN Reason: Protocol Stop: 09/18/17 17:59 Last Admin: 07/29/17 05:51 Dose: Not Given Insulin Detemir (Levemir Insulin) 24 units SUBQ BID [facility] PRN Reason: Protocol Stop: 09/20/17 08:59 Last Admin: 07/29/17 09:19 Dose: 24 units Magnesium Hydroxide (Milk Of Magnesia) 30 ml GT HS PRN PRN Reason: Constipation Stop: 09/16/17 23:47 Metoclopramide HCl (Reglan) 10 mg GT Q8H [facility] Stop: 09/20/17 13:01 Last Admin: 07/29/17 05:47 Dose: 10 mg Miscellaneous (Vancomycin Iv Per Pharmacy) 1 ea MC PRN [facility] Stop: 09/16/17 23:44 Miscellaneous (Clinical Monitoring) 1 ea PRN PRN PRN Reason: RENAL DOSE ZOSYN Stop: 09/17/17 08:23 Miscellaneous (Probiotic Screen) 1 ea PRN PRN PRN Reason: PROTOCOL Stop: 09/17/17 10:14 Miscellaneous (Vte Chemical Prophylaxis Screen/ Admission) 1 ea PRN PRN PRN Reason: PROTOCOL Stop: 09/17/17 13:47 Morphine Sulfate (Morphine) 2 mg IVP Q4H PRN PRN Reason: Pain (Severe) Stop: 09/16/17 23:53 Last Admin: 07/24/17 23:27 Dose: 2 mg Ondansetron HCl (Zofran) 4 mg IV Q8H PRN PRN Reason: Nausea / Vomiting Stop: 09/16/17 23:54 Last Admin: 07/21/17 18:48 Dose: 4 mg Potassium Chloride (Potassium Chloride Elixir) 20 meq GT BID [facility] Stop: 08/01/17 17:01 Last Admin: 07/29/17 09:16 Dose: 20 meq Rifaximin (Xifaxan) 500 mg GT BID [facility] Stop: 09/24/17 16:59 Last Admin: 07/29/17 09:17 Dose: 500 mg Sodium Phosphate (Fleet Enema) 135 ml RC Q48H PRN PRN Reason: Constipation Stop: 09/16/17 23:47 Zinc Sulfate (Zinc Sulfate) 220 mg GT DAILY [facility] Stop: 09/17/17 08:59 Last Admin: 07/29/17 09:16 Dose: 220 mg General: weak, congested, demented, obtunded HEENT: NC/AT, PERRLA Neck: Supple, + trach Lungs: rales, ronchi Cardiovascular: RRR, without murmur Abdomen: soft, non-tender, non-distended, +GT, positive bowel sound Extremities: excoriation, ulcers stage 3 Neurological: bedbound, spastic - Procedures Procedures: Procedures Procedure Code Date RESPIRATORY VENTILATION, GREATER THAN 96 CONSECUTIVE HOURS [id number] 07/18/17 Internal Medicine Assmt/Plan - Assessment Assessment: sepsis cdiff chronic respiratory failure VDRF leukocytosis hematuria-improved htn dm2 cad chf anemia tracheostomy status hypokalemia acute renal insufficiency elevated troponin mild protein calorie malnutrition acute uti - Plan Plan: LTAC EVAL contact isolation continue with ivabx renal follow up monitor h/h follow up labs in am vent support continue current plan of care Nutritional Asmnt/Malnutr-PDOC - Dietary Evaluation Malnutrition Findings (Please click <Entered> for more info): Nutritional Asmnt/Malnutrition Start: 07/19/17 17: 24 Text: Status: Complete Freq: Document 07/19/17 17:25 LCHENG (Rec: 07/19/17 17:43 LCHENG [email or web address]) Nutritional Asmnt/Malnutrition Patient General Information Nutritional Screening High Risk Consult Diagnosis Sepsis, UTI Pertinent Medical Hx/Surgical Hx HTN, DM, CAD, CHF, chronic resperatory failure, anemia, PEG/Gtube, tracheostomy Subjective Information Consult received for elevated BG. Pt seen lying in bed, on vent, non verbal comminication noted. Not able to obtain nutrition hx. Spoke with RN, no nutrition plan at this time . Current Diet Order/ Nutrition Support NPO Pertinent Medications Vitamin C, novolog, cultrelle, reglan, vancomycin, , piperacillin, Nacl 0.9%, Zinc Pertinent Labs 07/19 Na 132, K 5.3, Cl 97L, BUN 137, Cr 2.7, Glu 353, POC 324-394, A1C 6.2 Nutritional Hx/Data Height 5 ft 2 in Height (Calculated Centimeters) 157.5 Current Weight (lbs) 178 lb 3.2 oz Weight (Calculated Kilograms) 80.8 Weight (Calculated Grams) 18315.2 [place] Body Weight 110 % [place] Body Weight 162 Body Mass Index (BMI) 32.5 Weight Status Obese GI Symptoms GI Symptoms None Last BM none Usual diet at home Glucerna 1.5 60ml/hr x 20hr daily at [facility] Skin Integrity/Comment: decubitus ulceration to sacrum Estimated Nutritional Goals BEE in Kcals: Adj wt of IBW Calories/Kcals/Kg 30-35 Kcals Calculated Protein: Adj wt of IBW Protein g/k.2-1.5 Protein Calculated Fluid: ml Nutritional Problem 2. Problem Problem increased nutrition needs ( calorie and protein) Etiology increased metabolic demand for healing Signs/Symptoms: sepsis 1. Problem Problem altered nutrition related lab values Etiology hx of DM, acute renal insufficiency Signs/Symptoms: BUN 137, Cr 2.7, Glu 353, POC 324-394, A1C 6.2 Malnutrition Alert Protein-Calorie Malnutrition N/A Is there a minimum of two criteria No selected? Query Text:Check all the applicable criteria. A minimum of two criteria are recommended for diagnosis of either severe or non-severe malnutrition. Intervention/Recommendation Comments 1. Monitor NPO status. 2. If enteral feeding needed, recommend to start Diabetisource AC at 30ml/hr continuous. Increased to goal rate of 60ml/hr continuous as tolerated. This will provide 1728kcal, 86g protein and 1179ml water, meeting 100% of nutritional needs. 3. Monitor wt, labs and skin integrity 4. F/U as high risk in 2-3 days, 07/21-07/22 Expected Outcomes/Goals Expected Outcomes/Goals 1. Pt to meet at least 75% of nutritional needs in 2-3 days 2. Wt stability, skin to remain intact, labs to improve .
--- NOTE | 2017-07-29 12:28 | Pathology Report ---
[id number] Collection date: 07/27/2017 Surgeon: Dr. Phil Jaffe Specimen Description: Debridement of sacral decubitus. Gross Description: Received in formalin are two portions of grayish necrotic appearing skin and soft tissue measuring 2.0 and 2.2 cm in greatest dimension. Sectioning shows degenerated necrotic tissue. Barge Engineer sections are submitted in one cassette. Microscopic Description: The histologic sections show ulcerated necrotic skin with areas of suppurative inflammation consisting of large collections of neutrophils. Diagnosis: Ulcerated necrotic skin consistent with debridement, sacral decubitus ulcer. JOB# [id number] [facility]
[2017-07-29] MEDS: Venelex 60gm Tube TP SCH (16:53)
[2017-07-29] MEDS: Menthol/Zinc Oxide Oint 113gm Tube TP SCH ×4 (16:54→21:17)
[2017-07-29] MEDS ORDERED: Albuterol/Ipratropium Neb 3 ML AERS HHN ONE (21:11)
--- NOTE | 2017-07-29 22:48 | Progress Notes ---
DATE: 07/29/2017 PULMONARY PROGRESS NOTE PROBLEM LIST: 1. Acute on chronic respiratory failure, improving; leukocytosis undetermined ____ in nature. 2. Chronic respiratory failure, on vent. SYMPTOMS: Nil. Barely opens eyes. No respiratory distress, etc. PHYSICAL EXAMINATION: VITAL SIGNS: Afebrile. Heart rate is in 60s, respirations in the low 20s, and saturation 100% on 30%. NECK: Veins not visualized. Trach site appears to be okay. CHEST: Shows diminished air entry with occasional rhonchi. HEART: Regular. ABDOMEN: Soft, nontender. LABORATORY DATA: White count is 28,000 and hemoglobin 8.8. Blood chemistry, sodium shows 134. ASSESSMENT: 1. The patient is clinically stable, not much changed, persistent leukocytosis. 2. Stable respiratory gallardo. PLANS AND SUGGESTIONS: We will go ahead and continue current treatment and follow up CBC again in the next few days' time and go from there. JOB# [id number]
[2017-07-30] MEDS: INSULIN ASPART, RECOMBINANT 100 UNITS/ML SUBQ SCH ×5 (00:15→23:51)
[2017-07-30] MEDS: Albuterol/Ipratropium Neb 3 ML AERS HHN SCH ×4 (01:01→19:41)
[2017-07-30] MEDS: D5-0.45NS 1,000 ML IV SCH (04:26)
[2017-07-30 04:48] LABS: HEMOGLOBIN 9.5 gm/dL (12-16); MANUAL DIFF REQUIRED? YES; MEAN CELL VOLUME 86.2 fl (81-100); MEAN CORPUSCULAR HEMOGLOBIN 28.3 pg (27.0-31.0); MEAN CORPUSCULAR HGB CONC 32.9 pg (28.0-36.0); MEAN PLATELET VOLUME 10.6 fl; RED BLOOD COUNT 3.34 Mil/cmm (3.80-5.10); RED CELL DISTRIBUTION WIDTH 14.5 % (11.5-20.0)
[2017-07-30 04:54] LABS: HEMATOCRIT 28.8 % (41.0-60); PLATELET COUNT 306 Th/cmm (150-400); WHITE BLOOD COUNT 24.5 Th/cmm (4.8-10.8)
[2017-07-30 05:14] LABS: ALB/GLOB RATIO 0.8 (1.0-1.8); ALBUMIN 2.7 gm/dL (3.7-5.3); ALKALINE PHOSPHATASE 104 U/L (34-104); ANION GAP 12.5 (7.0-16.0); BILIRUBIN,TOTAL 0.3 mg/dL (0.3-1.0); BUN - UREA NITROGEN 31 mg/dL (7-25); CALCIUM SERUM 8.5 mg/dL (8.6-10.3); CHLORIDE 102 mEq/L (98-107); CREATININE - SERUM 1.1 mg/dL (0.6-1.2); GFR AFRICAN-AMERICAN > 60.0 ml/min (>90); GFR NON AFRICAN-AMERICAN 53.5 ml/min; GLUCOSE 119 mg/dL (70-105); POTASSIUM SERUM 4.5 mEq/L (3.5-5.1); SGOT 10 U/L (13-39); SGPT/ALT 11 U/L (7-52); SODIUM SERUM 130 mEq/L (136-145); TOTAL PROTEIN,SERUM 6.1 gm/dL (6.0-8.3)
[2017-07-30 05:18] LABS: NEUTROPHILS 79 % (40-80); TOTAL CELLS COUNTED 100
[2017-07-30 05:19] LABS: BAND NEUTROPHILE 1 % (0-10); EOSINOPHIL 1 % (0-5); HYPOCHROMIA 1+; LYMPHOCYTE 13 % (20-50); MONOCYTE 6 % (2-10); PLATELET ESTIMATE ADEQUATE (NORMAL); POLYCHROMASIA 1+
[2017-07-30] MEDS: Chlorhexidine Gluconate 0.12% 15mL Mouthwash MM SCH ×2 (08:20→20:31)
[2017-07-30] MEDS: Potassium Chloride Elixir 20 mEq /15 mL UDC GT SCH ×2 (09:54→17:55)
[2017-07-30] MEDS: Menthol/Zinc Oxide Oint 113gm Tube TP SCH ×4 (09:57→20:32)
[2017-07-30] MEDS: Venelex 60gm Tube TP SCH (09:57)
[2017-07-30] MEDS: Multivitamin w/ Minerals Tab GT SCH (09:57)
[2017-07-30] MEDS: Insulin Detemir 100 units/mL 10mL Vial SUBQ SCH ×2 (09:59→18:02)
--- NOTE | 2017-07-30 14:26 | Internal Medicine Prog Note ---
Internal Medicine Subjective - Subjective Patient seen and examined:: with staff, chart reviewed Patient is:: asleep, non-verbal, non-interactive, in bed, congested, stares blankly Patient Complaints of:: congestion, bloated Per staff patient has:: no adverse event, tolerating meds Internal Medicine Objective - Results Result Diagrams: 07/30/17 04:30 07/30/17 04:30 Recent Labs: Laboratory Last Values WBC 24.5 Th/cmm (4.8-10.8) H* 07/30/17 04:30 RBC 3.34 Mil/cmm (3.80-5.10) L 07/30/17 04:30 Hgb 9.5 gm/dL (12-16) L 07/30/17 04:30 Hct 28.8 % (41.0-60) L D 07/30/17 04:30 MCV 86.2 fl (81-100) 07/30/17 04:30 MCH 28.3 pg (27.0-31.0) 07/30/17 04:30 MCHC Differential 32.9 pg (28.0-36.0) 07/30/17 04:30 RDW 14.5 % (11.5-20.0) 07/30/17 04:30 Plt Count 306 Th/cmm (150-400) D 07/30/17 04:30 MPV 10.6 fl 07/30/17 04:30 Neutrophils % 77.3 % (40.0-80.0) 07/27/17 05:40 Band Neutrophils % 1 % (0-10) 07/30/17 04:30 Lymphocytes % 15.9 % (20.0-50.0) L 07/27/17 05:40 Monocytes % 4.0 % (2.0-10.0) 07/27/17 05:40 Eosinophils % 2.7 % (0.0-5.0) 07/27/17 05:40 Basophils % 0.1 % (0.0-2.0) 07/27/17 05:40 Neutrophils (Manual) 79 % (40-80) 07/30/17 04:30 Lymphocytes 13 % (20-50) L 07/30/17 04:30 Monocytes 6 % (2-10) 07/30/17 04:30 Eosinophils 1 % (0-5) 07/30/17 04:30 Hypochromia 1+ 07/30/17 04:30 Platelet Estimate ADEQUATE (NORMAL) 07/30/17 04:30 Polychromasia 1+ 07/30/17 04:30 Smear Path Review YES 07/18/17 22:15 Eos Smear Source URINE 07/19/17 22:30 Eos Smear Total Cells NONE SEEN (NONE SEEN) 07/19/17 22:30 Specimen Source Arterial 07/25/17 14:15 Sample Site RIGHT BRACHIAL 07/25/17 14:15 pH 7.48 (7.35-7.45) H 07/25/17 14:15 pCO2 33.0 mmHg (35.0-45.0) L 07/25/17 14:15 pO2 144.0 mmHg (80.0-100.0) H 07/25/17 14:15 HCO3 26.1 mEq/L (20.0-26.0) H 07/25/17 14:15 Base Excess 1.5 mEq/L (-3.0-3.0) 07/25/17 14:15 O2 Saturation 99.0 % (92.0-100.0) 07/25/17 14:15 Cricket Test Positive 07/25/17 14:15 Vent Rate 12 07/25/17 14:15 Inspired O2 35 07/25/17 14:15 Tidal Volume 500 07/25/17 14:15 PEEP 5 07/25/17 14:15 Pressure (ins/psv/peep) N/A 07/25/17 14:15 Critical Value HSTEHNO 07/25/17 14:15 Sodium 130 mEq/L (136-145) L 07/30/17 04:30 Potassium 4.5 mEq/L (3.5-5.1) 07/30/17 04:30 Chloride 102 mEq/L (98-107) 07/30/17 04:30 Carbon Dioxide 20.0 mEq/L (21.0-31.0) L 07/30/17 04:30 Anion Gap 12.5 (7.0-16.0) 07/30/17 04:30 BUN 31 mg/dL (7-25) H 07/30/17 04:30 Creatinine 1.1 mg/dL (0.6-1.2) 07/30/17 04:30 Est GFR ( Amer) > 60.0 ml/min (>90) 07/30/17 04:30 Est GFR (Non-Af Amer) 53.5 ml/min 07/30/17 04:30 BUN/Creatinine Ratio 28.2 07/30/17 04:30 Glucose 119 mg/dL (70-105) H 07/30/17 04:30 POC Glucose 94 MG/DL (70 - 105) 07/30/17 11:32 Hemoglobin A1c % 6.2 % (4.0-6.0) H 07/18/17 23:30 Plasma/Ser Osmolality 344 mOsmol/kg (280-301) H 07/19/17 23:30 Whole Bld Lactic Acid 0.61 mmol/L (0.60-1.99) 07/20/17 04:10 Uric Acid 9.5 mg/dL (2.3-6.6) H 07/20/17 04:10 Calcium 8.5 mg/dL (8.6-10.3) L 07/30/17 04:30 Phosphorus 4.5 mg/dL (2.5-5.0) 07/20/17 04:10 Magnesium 1.8 mg/dL (1.9-2.7) L 07/28/17 05:00 Total Bilirubin 0.3 mg/dL (0.3-1.0) 07/30/17 04:30 AST 10 U/L (13-39) L 07/30/17 04:30 ALT 11 U/L (7-52) 07/30/17 04:30 Alkaline Phosphatase 104 U/L (34-104) 07/30/17 04:30 Ammonia 50 umol/L (16-53) 07/28/17 06:00 Creatine Kinase 26 U/L (30-223) L 07/18/17 22:15 Troponin I 0.27 ng/mL (0.01-0.05) H* 07/18/17 22:15 B-Natriuretic Peptide 233.0 pg/mL (5.0-100.0) H 07/28/17 06:00 Total Protein 6.1 gm/dL (6.0-8.3) 07/30/17 04:30 Albumin 2.7 gm/dL (3.7-5.3) L 07/30/17 04:30 Globulin 3.4 gm/dL 07/30/17 04:30 Albumin/Globulin Ratio 0.8 (1.0-1.8) L 07/30/17 04:30 Vitamin B12 1119 pg/mL (232-1245) 07/23/17 04:33 Folic Acid >20.0 ng/mL (>3.0) 07/23/17 04:33 TSH 2.30 uIU/ml (0.34-5.60) 07/19/17 04:15 Urine Source [place] 07/18/17 21:30 Urine Color RED 07/18/17 21:30 Urine Clarity CLOUDY (CLEAR) H 07/18/17 21:30 Urine pH 7.5 (4.6 - 8.0) 07/18/17 21:30 Ur Specific Crane 1.025 (1.005-1.030) 07/18/17 21:30 Urine Protein >=300 mg/dL (NEGATIVE) 07/18/17 21:30 Urine Glucose (UA) NEGATIVE mg/dL (NEGATIVE) 07/18/17 21:30 Urine Ketones NEGATIVE mg/dL (NEGATIVE) 07/18/17 21:30 Urine Blood LARGE (NEGATIVE) H 07/18/17 21:30 Urine Nitrate NEGATIVE (NEGATIVE) 07/18/17 21:30 Urine Bilirubin NEGATIVE (NEGATIVE) 07/18/17 21:30 Urine Urobilinogen 0.2 E.U./dL (0.2 - 1.0) 07/18/17 21:30 Ur Leukocyte Esterase SMALL (NEGATIVE) H 07/18/17 21:30 Urine RBC 50-100 /hpf (0-5) H 07/18/17 21:30 Urine WBC 6-10 /hpf (0-5) H 07/18/17 21:30 Ur Epithelial Cells FEW /lpf (FEW) 07/18/17 21:30 Urine Bacteria MANY /hpf (NONE SEEN) 07/18/17 21:30 Ur Random Sodium 28 mmol/L 07/19/17 22:30 Urine Creatinine 26.3 mg/dl (Not Estab.) 07/19/17 22:30 Urine Microalbumin 2398.5 ug/mL (Not Estab.) 07/19/17 22:30 Microalb/Creat Ratio 9119.8 07/19/17 22:30 Stool Occult Blood NEGATIVE (NEGATIVE) 07/24/17 03:37 Vancomycin Trough 23.0 ug/mL (10-20) H 07/29/17 20:00 Random Vancomycin 26.6 ug/mL (5.0-40.0) 07/24/17 04:30 Blood Type O NEGATIVE 07/20/17 08:15 Antibody Screen NEGATIVE 07/20/17 08:15 - Physical Exam Vitals and I&O: Vital Signs Temp 97.7 F 07/30/17 14:00 Pulse 74 07/30/17 14:00 Resp 13 07/30/17 14:00 BP 136/55 07/30/17 14:00 Pulse Ox 100 07/30/17 14:00 Intake & Output 07/29/17 07/30/17 07/30/17 18:59 06:59 18:59 Intake Total 50 3069.167 Output Total 4050 Balance 50 -980.833 Weight (lbs) 74.026 kg Intake: Intake, IV Amount 50 1049.167 D5-0.45NS 1,000 ml @ 50 999.167 mls/hr IV .Q20H [facility] Rx#: [id number] Piperacillin Sodium/ 50 50 Tazobact 2.25 gm In Dextrose 5% 50 ml @ 100 mls/hr IV Q8H [facility] Rx#: [id number] Oral 0 Tube Feeding 1320 Other 700 Output: Urine 3650 Stool 400 Other: Stool Characteristics Soft Soft Soft Brown Brown Brown Active Medications: Current Medications Acetaminophen (Tylenol 650mg/20.3ml Suspension) 650 mg GT Q4H PRN PRN Reason: Pain or Fever >101 Stop: 09/16/17 23:47 Last Admin: 07/22/17 00:35 Dose: 650 mg Albuterol/Ipratropium (Duoneb Neb) 3 ml HHN Q6HRT [facility] Stop: 09/17/17 12:59 Last Admin: 07/30/17 13:35 Dose: 3 ml Albuterol/Ipratropium (Duoneb Neb) 3 ml HHN Q2HR PRN PRN Reason: Shortness of Breath Stop: 09/16/17 23:47 Ascorbic Acid (Vitamin C) 500 mg GT DAILY [facility] Stop: 09/17/17 08:59 Last Admin: 07/30/17 09:57 Dose: 500 mg Bisacodyl (Dulcolax 10 Mg Supp) 10 mg RC DAILY PRN PRN Reason: constip Stop: 09/16/17 23:47 Calamine/Phenol (Calmoseptine) 1 appl TP QID PRN PRN Reason: Skin Irritation Stop: 09/24/17 09:35 Calamine/Phenol (Calmoseptine) 1 appl TP QID [facility] Stop: 09/24/17 12:59 Last Admin: 07/30/17 12:25 Dose: 1 appl Carvedilol (Coreg) 6.25 mg GT BID [facility] Stop: 09/17/17 08:59 Last Admin: 07/30/17 09:56 Dose: 6.25 mg [place] Oil/Cambodian Balsam/Trypsin (Venelex) 1 appl TP DAILY [facility] Stop: 09/25/17 08:59 Last Admin: 07/30/17 09:57 Dose: 1 appl Chlorhexidine Gluconate (Peridex) 15 ml MM 0800,2000 [facility] Stop: 09/17/17 07:59 Last Admin: 07/30/17 08:20 Dose: 15 ml Docusate Sodium (Colace) 100 mg GT BID PRN PRN Reason: Constipation Famotidine (Pepcid) 20 mg GT Q12H [facility] Stop: 09/16/17 23:44 Last Admin: 07/30/17 12:24 Dose: 20 mg Guaifenesin (Robitussin) 200 mg PO Q4HR PRN PRN Reason: Cough or Congestion Stop: 09/16/17 23:54 Heparin Sodium (Porcine) (Heparin) 5,000 units SUBQ Q12HR [facility] Stop: 09/17/17 08:59 Last Admin: 07/30/17 09:59 Dose: 5,000 units Dextrose/Sodium Chloride (D5-0.45ns) 1,000 mls @ 50 mls/hr IV .Q20H [facility] Stop: 09/24/17 17:14 Last Admin: 07/30/17 04:26 Dose: 50 mls/hr Vancomycin HCl 1 gm/ Dextrose 250 mls @ 165 mls/hr IV Q36H [facility] Stop: 09/24/17 20:59 Last Admin: 07/29/17 22:15 Dose: 165 mls/hr Insulin Aspart (Novolog) 0 units SUBQ Q6HR [facility] PRN Reason: Protocol Stop: 09/18/17 17:59 Last Admin: 07/30/17 12:24 Dose: Not Given Insulin Detemir (Levemir Insulin) 24 units SUBQ BID [facility] PRN Reason: Protocol Stop: 09/20/17 08:59 Last Admin: 07/30/17 09:59 Dose: Not Given Magnesium Hydroxide (Milk Of Magnesia) 30 ml GT HS PRN PRN Reason: Constipation Stop: 09/16/17 23:47 Metoclopramide HCl (Reglan) 10 mg GT Q8H [facility] Stop: 09/20/17 13:01 Last Admin: 07/30/17 12:28 Dose: 10 mg Miscellaneous (Vancomycin Iv Per Pharmacy) 1 ea PRN [facility] Stop: 09/16/17 23:44 Miscellaneous (Clinical Monitoring) 1 ea PRN PRN PRN Reason: RENAL DOSE ZOSYN Stop: 09/17/17 08:23 Miscellaneous (Probiotic Screen) 1 ea PRN PRN PRN Reason: PROTOCOL Stop: 09/17/17 10:14 Miscellaneous (Vte Chemical Prophylaxis Screen/ Admission) 1 ea PRN PRN PRN Reason: PROTOCOL Stop: 09/17/17 13:47 Morphine Sulfate (Morphine) 2 mg IVP Q4H PRN PRN Reason: Pain (Severe) Stop: 09/16/17 23:53 Last Admin: 07/24/17 23:27 Dose: 2 mg Ondansetron HCl (Zofran) 4 mg IV Q8H PRN PRN Reason: Nausea / Vomiting Stop: 09/16/17 23:54 Last Admin: 07/21/17 18:48 Dose: 4 mg Potassium Chloride (Potassium Chloride Elixir) 20 meq GT BID [facility] Stop: 08/01/17 17:01 Last Admin: 07/30/17 09:54 Dose: 20 meq Rifaximin (Xifaxan) 500 mg GT BID [facility] Stop: 09/24/17 16:59 Last Admin: 07/30/17 09:35 Dose: 500 mg Sodium Phosphate (Fleet Enema) 135 ml RC Q48H PRN PRN Reason: Constipation Stop: 09/16/17 23:47 Zinc Sulfate (Zinc Sulfate) 220 mg GT DAILY [facility] Stop: 09/17/17 08:59 Last Admin: 07/30/17 09:57 Dose: 220 mg General: weak, congested, demented, obtunded HEENT: NC/AT, PERRLA Neck: Supple, + trach Lungs: congested, rales, ronchi Cardiovascular: RRR, without murmur Abdomen: soft, non-tender, non-distended, +GT, positive bowel sound Extremities: excoriation, ulcers stage 3 Neurological: bedbound, spastic - Procedures Procedures: Procedures Procedure Code Date RESPIRATORY VENTILATION, GREATER THAN 96 CONSECUTIVE HOURS [id number] 07/18/17 Internal Medicine Assmt/Plan - Assessment Assessment: fever sepsis cdiff chronic respiratory failure VDRF leukocytosis hematuria-improved htn dm2 cad chf anemia tracheostomy status hypokalemia acute renal insufficiency elevated troponin mild protein calorie malnutrition acute uti - Plan Plan: LTAC EVAL contact isolation continue with ivabx renal follow up monitor h/h follow up labs in am vent support continue current plan of care - Plan Plan: cont on iv abx monitor wbc cpm dw rn Nutritional Asmnt/Malnutr-PDOC - Dietary Evaluation Malnutrition Findings (Please click <Entered> for more info): Nutritional Asmnt/Malnutrition Start: 07/19/17 17: 24 Text: Status: Complete Freq: Document 07/19/17 17:25 LCHENG (Rec: 07/19/17 17:43 LCHENG [email or web address]) Nutritional Asmnt/Malnutrition Patient General Information Nutritional Screening High Risk Consult Diagnosis Sepsis, UTI Pertinent Medical Hx/Surgical Hx HTN, DM, CAD, CHF, chronic resperatory failure, anemia, PEG/Gtube, tracheostomy Subjective Information Consult received for elevated BG. Pt seen lying in bed, on vent, non verbal comminication noted. Not able to obtain nutrition hx. Spoke with RN, no nutrition plan at this time . Current Diet Order/ Nutrition Support NPO Pertinent Medications Vitamin C, novolog, cultrelle, reglan, vancomycin, , piperacillin, Nacl 0.9%, Zinc Pertinent Labs 07/19 Na 132, K 5.3, Cl 97L, BUN 137, Cr 2.7, Glu 353, POC 324-394, A1C 6.2 Nutritional Hx/Data Height 1.57 m Height (Calculated Centimeters) 157.5 Current Weight (lbs) 80.83 kg Weight (Calculated Kilograms) 80.8 Weight (Calculated Grams) 48984.2 Nunda Body Weight 110 % Nunda Body Weight 162 Body Mass Index (BMI) 32.5 Weight Status Obese GI Symptoms GI Symptoms None Last BM none Usual diet at home Glucerna 1.5 60ml/hr x 20hr daily at [facility] Skin Integrity/Comment: decubitus ulceration to sacrum Estimated Nutritional Goals BEE in Kcals: Adj wt of IBW Calories/Kcals/Kg 30-35 Kcals Calculated Protein: Adj wt of IBW Protein g/k.2-1.5 Protein Calculated 69-87 Fluid: ml Nutritional Problem 2. Problem Problem increased nutrition needs ( calorie and protein) Etiology increased metabolic demand for healing Signs/Symptoms: sepsis 1. Problem Problem altered nutrition related lab values Etiology hx of DM, acute renal insufficiency Signs/Symptoms: BUN 137, Cr 2.7, Glu 353, POC 324-394, A1C 6.2 Malnutrition Alert Protein-Calorie Malnutrition N/A Is there a minimum of two criteria No selected? Query Text:Check all the applicable criteria. A minimum of two criteria are recommended for diagnosis of either severe or non-severe malnutrition. Intervention/Recommendation Comments 1. Monitor NPO status. 2. If enteral feeding needed, recommend to start Diabetisource AC at 30ml/hr continuous. Increased to goal rate of 60ml/hr continuous as tolerated. This will provide 1728kcal, 86g protein and 1179ml water, meeting 100% of nutritional needs. 3. Monitor wt, labs and skin integrity 4. F/U as high risk in 2-3 days, 07/21-07/22 Expected Outcomes/Goals Expected Outcomes/Goals 1. Pt to meet at least 75% of nutritional needs in 2-3 days 2. Wt stability, skin to remain intact, labs to improve .
[2017-07-30 15:34] LABS: PROTHROMBIN TIME (TEST) 10.4 SECONDS (9.5-11.5)
--- NOTE | 2017-07-30 22:13 | Progress Notes ---
DATE: 07/30/2017 UROLOGY PROGRESS NOTE SUBJECTIVE: The patient is doing well after the debridement, but the white count continues to remain high and difficult to explain. Ventilator settings have not changed. She is tolerating G-tube feedings well and according to the nurses, the area of debridement looks clean. PHYSICAL EXAMINATION: VITAL SIGNS: Temperature 97.8, heart rate 65, blood pressure 118/38, saturating 100% on tidal volume of 500, 30% FiO2. ABDOMEN: Soft and nontender. No guarding or rigidity. Ocampo draining well. No blood. EXTREMITIES: No edema. LABORATORY DATA: White count 34.5 and creatinine 1.1. Antibiotics: Vancomycin only, Zosyn was discontinued. IMPRESSION: 1. Continued leukocytosis, source unclear except for the right hydronephrosis; therefore, we may be forced into doing a percutaneous nephrostomy to rule out the kidney as the source of infection. Cystoscopy and retrograde with stent is not the best choice given that long-term stents are not well tolerated and themselves become a source of infection. 2. Neurogenic bladder, need long-term Ocampo. 3. Diabetes. 4. Multiple sclerosis, both make her higher risk patient. 5. Besides that, she also has a history of coronary artery disease, congestive heart failure, tracheostomy and ventilator dependency. PLAN: We will discuss with primary care and other consultants and the family members if they want to pursue the option of percutaneous nephrostomy, for which she has to be sent to another hospital as well. JOB# [id number]
[2017-07-30 23:40] LABS: % BASOPHILS 0.5 % (0.0-2.0); % EOSINOPHILS 1.4 % (0.0-5.0); % LYMPHOCYTES 15.3 % (20.0-50.0); % MONOCYTES 6.3 % (2.0-10.0); % NEUTROPHILS 76.5 % (40.0-80.0); BASOPHILE ABSOLUTE 0.1 Th/cumm (0-0.2); EOSINOPHILE ABSOLUTE 0.3 Th/cmm (0.1-0.4); HEMOGLOBIN 8.3 gm/dL (12-16); LYMPHOCYTE ABSOLUTE 2.9 Th/cmm (1.5-3.0); MEAN CELL VOLUME 85.3 fl (81-100); MEAN CORPUSCULAR HGB CONC 32.8 pg (28.0-36.0); MEAN PLATELET VOLUME 10.8 fl; MONOCYTE ABSOLUTE 1.2 Th/cmm (0.3-1.0); NEUTROPHILE ABSOLUTE 14.3 Th/cmm (1.8-8.0); PLATELET COUNT 328 Th/cmm (150-400); RED BLOOD COUNT 2.95 Mil/cmm (3.80-5.10); RED CELL DISTRIBUTION WIDTH 14.9 % (11.5-20.0)
[2017-07-30 23:42] LABS: HEMATOCRIT 25.1 % (41.0-60); WHITE BLOOD COUNT 18.8 Th/cmm (4.8-10.8)
[2017-07-31] MEDS: Albuterol/Ipratropium Neb 3 ML AERS HHN SCH ×4 (00:48→19:36)
[2017-07-31] MEDS: INSULIN ASPART, RECOMBINANT 100 UNITS/ML SUBQ SCH ×4 (05:24→23:33)
[2017-07-31 07:20] LABS: BASOPHILE ABSOLUTE 0.2 Th/cumm (0-0.2); EOSINOPHILE ABSOLUTE 0.3 Th/cmm (0.1-0.4); HEMOGLOBIN 9.8 gm/dL (12-16); LYMPHOCYTE ABSOLUTE 4.5 Th/cmm (1.5-3.0); MANUAL DIFF REQUIRED? YES; MEAN CORPUSCULAR HEMOGLOBIN 29.3 pg (27.0-31.0); MEAN PLATELET VOLUME 11.4 fl; MONOCYTE ABSOLUTE 2.1 Th/cmm (0.3-1.0); NEUTROPHILE ABSOLUTE 21.9 Th/cmm (1.8-8.0); PLATELET COUNT 306 Th/cmm (150-400); RED BLOOD COUNT 3.36 Mil/cmm (3.80-5.10); RED CELL DISTRIBUTION WIDTH 14.8 % (11.5-20.0)
[2017-07-31 07:24] LABS: HEMATOCRIT 28.9 % (41.0-60)
[2017-07-31 07:34] LABS: ALB/GLOB RATIO 0.8 (1.0-1.8); ALBUMIN 2.8 gm/dL (3.7-5.3); ANION GAP 12.9 (7.0-16.0); BILIRUBIN,TOTAL 0.3 mg/dL (0.3-1.0); CALCIUM SERUM 8.9 mg/dL (8.6-10.3); CARBON DIOXIDE 20.8 mEq/L (21.0-31.0); CREATININE - SERUM 1.2 mg/dL (0.6-1.2); GFR AFRICAN-AMERICAN 58.5 ml/min (>90); GFR NON AFRICAN-AMERICAN 48.4 ml/min; POTASSIUM SERUM 4.7 mEq/L (3.5-5.1); TOTAL PROTEIN,SERUM 6.3 gm/dL (6.0-8.3)
[2017-07-31 07:49] LABS: BAND NEUTROPHILE 4 % (0-10); LYMPHOCYTE 15 % (20-50); MONOCYTE 8 % (2-10); NEUTROPHILS 73 % (40-80); TOTAL CELLS COUNTED 100
[2017-07-31 08:10] LABS: IRON LC 36 ug/dL (27-139); TIBC (LC) 160 ug/dL (250-450); UIBC 124 ug/dL (118-369)
[2017-07-31] MEDS: Chlorhexidine Gluconate 0.12% 15mL Mouthwash MM SCH ×2 (08:15→20:55)
--- NOTE | 2017-07-31 09:04 | Diagnostic Imaging Report ---
Portable chest x-ray History: Shortness of breath Allowing for portable technique the heart size is normal. No focal pulmonary parenchymal processes. No hilar or mediastinal abnormalities. Tracheostomy noted. Impression: No acute abnormalities.
[2017-07-31] MEDS: Potassium Chloride Elixir 20 mEq /15 mL UDC GT SCH ×2 (09:58→17:36)
[2017-07-31] MEDS: Multivitamin w/ Minerals Tab GT SCH (09:58)
[2017-07-31] MEDS: Menthol/Zinc Oxide Oint 113gm Tube TP SCH ×4 (09:59→21:37)
[2017-07-31] MEDS: Venelex 60gm Tube TP SCH (10:00)
[2017-07-31] MEDS: Insulin Detemir 100 units/mL 10mL Vial SUBQ SCH ×2 (10:15→17:40)
--- NOTE | 2017-07-31 14:54 | Internal Medicine Prog Note ---
Internal Medicine Subjective - Subjective Patient seen and examined:: with staff, chart reviewed Patient is:: asleep, non-verbal, non-interactive, in bed, congested, stares blankly Patient Complaints of:: congestion, bloated Per staff patient has:: no adverse event, tolerating meds Internal Medicine Objective - Results Result Diagrams: 07/31/17 07:00 07/31/17 07:00 Recent Labs: Laboratory Last Values WBC 29.0 Th/cmm (4.8-10.8) H* 07/31/17 07:00 RBC 3.36 Mil/cmm (3.80-5.10) L 07/31/17 07:00 Hgb 9.8 gm/dL (12-16) L 07/31/17 07:00 Hct 28.9 % (41.0-60) L D 07/31/17 07:00 MCV 86.0 fl (81-100) 07/31/17 07:00 MCH 29.3 pg (27.0-31.0) 07/31/17 07:00 MCHC Differential 34.0 pg (28.0-36.0) 07/31/17 07:00 RDW 14.8 % (11.5-20.0) 07/31/17 07:00 Plt Count 306 Th/cmm (150-400) 07/31/17 07:00 MPV 11.4 fl 07/31/17 07:00 Neutrophils % 76.5 % (40.0-80.0) 07/30/17 23:32 Band Neutrophils % 4 % (0-10) 07/31/17 07:00 Lymphocytes % 15.3 % (20.0-50.0) L 07/30/17 23:32 Monocytes % 6.3 % (2.0-10.0) 07/30/17 23:32 Eosinophils % 1.4 % (0.0-5.0) 07/30/17 23:32 Basophils % 0.5 % (0.0-2.0) 07/30/17 23:32 Neutrophils (Manual) 73 % (40-80) 07/31/17 07:00 Lymphocytes 15 % (20-50) L 07/31/17 07:00 Monocytes 8 % (2-10) 07/31/17 07:00 Eosinophils 1 % (0-5) 07/30/17 04:30 Hypochromia 1+ 07/30/17 04:30 Platelet Estimate ADEQUATE (NORMAL) 07/30/17 04:30 Polychromasia 1+ 07/30/17 04:30 Smear Path Review YES 07/18/17 22:15 Eos Smear Source URINE 07/19/17 22:30 Eos Smear Total Cells NONE SEEN (NONE SEEN) 07/19/17 22:30 PT 10.4 SECONDS (9.5-11.5) 07/30/17 15:12 INR 1.00 (0.5-1.4) 07/30/17 15:12 PTT (Actin FS) 27.5 SECONDS (26.0-38.0) 07/30/17 15:12 Specimen Source Arterial 07/25/17 14:15 Sample Site RIGHT BRACHIAL 07/25/17 14:15 pH 7.48 (7.35-7.45) H 07/25/17 14:15 pCO2 33.0 mmHg (35.0-45.0) L 07/25/17 14:15 pO2 144.0 mmHg (80.0-100.0) H 07/25/17 14:15 HCO3 26.1 mEq/L (20.0-26.0) H 07/25/17 14:15 Base Excess 1.5 mEq/L (-3.0-3.0) 07/25/17 14:15 O2 Saturation 99.0 % (92.0-100.0) 07/25/17 14:15 Cricket Test Positive 07/25/17 14:15 Vent Rate 12 07/25/17 14:15 Inspired O2 35 07/25/17 14:15 Tidal Volume 500 07/25/17 14:15 PEEP 5 07/25/17 14:15 Pressure (ins/psv/peep) N/A 07/25/17 14:15 Critical Value HSTEHNO 07/25/17 14:15 Sodium 135 mEq/L (136-145) L 07/31/17 07:00 Potassium 4.7 mEq/L (3.5-5.1) 07/31/17 07:00 Chloride 106 mEq/L (98-107) 07/31/17 07:00 Carbon Dioxide 20.8 mEq/L (21.0-31.0) L 07/31/17 07:00 Anion Gap 12.9 (7.0-16.0) 07/31/17 07:00 BUN 36 mg/dL (7-25) H 07/31/17 07:00 Creatinine 1.2 mg/dL (0.6-1.2) 07/31/17 07:00 Est GFR ( Amer) 58.5 ml/min (>90) 07/31/17 07:00 Est GFR (Non-Af Amer) 48.4 ml/min 07/31/17 07:00 BUN/Creatinine Ratio 30.0 07/31/17 07:00 Glucose 156 mg/dL (70-105) H 07/31/17 07:00 POC Glucose 152 MG/DL (70 - 105) H 07/31/17 11:42 Hemoglobin A1c % 6.2 % (4.0-6.0) H 07/18/17 23:30 Plasma/Ser Osmolality 344 mOsmol/kg (280-301) H 07/19/17 23:30 Whole Bld Lactic Acid 0.61 mmol/L (0.60-1.99) 07/20/17 04:10 Uric Acid 9.5 mg/dL (2.3-6.6) H 07/20/17 04:10 Calcium 8.9 mg/dL (8.6-10.3) 07/31/17 07:00 Phosphorus 4.5 mg/dL (2.5-5.0) 07/20/17 04:10 Magnesium 1.8 mg/dL (1.9-2.7) L 07/28/17 05:00 Iron 36 ug/dL (27-139) 07/30/17 04:30 TIBC 160 ug/dL (250-450) L 07/30/17 04:30 Iron Saturation 23 % (15-55) 07/30/17 04:30 Unsaturated IBC 124 ug/dL (118-369) 07/30/17 04:30 Total Bilirubin 0.3 mg/dL (0.3-1.0) 07/31/17 07:00 AST 9 U/L (13-39) L 07/31/17 07:00 ALT 11 U/L (7-52) 07/31/17 07:00 Alkaline Phosphatase 113 U/L (34-104) H 07/31/17 07:00 Ammonia 50 umol/L (16-53) 07/28/17 06:00 Creatine Kinase 26 U/L (30-223) L 07/18/17 22:15 Troponin I 0.27 ng/mL (0.01-0.05) H* 07/18/17 22:15 B-Natriuretic Peptide 542.0 pg/mL (5.0-100.0) H 07/31/17 07:00 Total Protein 6.3 gm/dL (6.0-8.3) 07/31/17 07:00 Albumin 2.8 gm/dL (3.7-5.3) L 07/31/17 07:00 Globulin 3.5 gm/dL 07/31/17 07:00 Albumin/Globulin Ratio 0.8 (1.0-1.8) L 07/31/17 07:00 Vitamin B12 1119 pg/mL (232-1245) 07/23/17 04:33 Folic Acid >20.0 ng/mL (>3.0) 07/23/17 04:33 TSH 2.30 uIU/ml (0.34-5.60) 07/19/17 04:15 Urine Source [place] 07/18/17 21:30 Urine Color RED 07/18/17 21:30 Urine Clarity CLOUDY (CLEAR) H 07/18/17 21:30 Urine pH 7.5 (4.6 - 8.0) 07/18/17 21:30 Ur Specific [place] 1.025 (1.005-1.030) 07/18/17 21:30 Urine Protein >=300 mg/dL (NEGATIVE) 07/18/17 21:30 Urine Glucose (UA) NEGATIVE mg/dL (NEGATIVE) 07/18/17 21:30 Urine Ketones NEGATIVE mg/dL (NEGATIVE) 07/18/17 21:30 Urine Blood LARGE (NEGATIVE) H 07/18/17 21:30 Urine Nitrate NEGATIVE (NEGATIVE) 07/18/17 21:30 Urine Bilirubin NEGATIVE (NEGATIVE) 07/18/17 21:30 Urine Urobilinogen 0.2 E.U./dL (0.2 - 1.0) 07/18/17 21:30 Ur Leukocyte Esterase SMALL (NEGATIVE) H 07/18/17 21:30 Urine RBC 50-100 /hpf (0-5) H 07/18/17 21:30 Urine WBC 6-10 /hpf (0-5) H 07/18/17 21:30 Ur Epithelial Cells FEW /lpf (FEW) 07/18/17 21:30 Urine Bacteria MANY /hpf (NONE SEEN) 07/18/17 21:30 Ur Random Sodium 28 mmol/L 07/19/17 22:30 Urine Creatinine 26.3 mg/dl (Not Estab.) 07/19/17 22:30 Urine Microalbumin 2398.5 ug/mL (Not Estab.) 07/19/17 22:30 Microalb/Creat Ratio 9119.8 07/19/17 22:30 Stool Occult Blood NEGATIVE (NEGATIVE) 07/24/17 03:37 Vancomycin Trough 23.0 ug/mL (10-20) H 07/29/17 20:00 Random Vancomycin 26.6 ug/mL (5.0-40.0) 07/24/17 04:30 Blood Type O NEGATIVE 07/20/17 08:15 Antibody Screen NEGATIVE 07/20/17 08:15 - Physical Exam Vitals and I&O: Vital Signs Temp 97.6 F 07/31/17 04:00 Pulse 77 07/31/17 14:22 Resp 16 07/31/17 06:00 BP 144/51 07/31/17 09:58 Pulse Ox 100 07/31/17 14:22 Intake & Output 07/30/17 07/31/17 07/31/17 18:59 06:59 18:59 Intake Total 950 1818.333 Output Total 1600 900 Balance -650 918.333 Weight (lbs) 74.559 kg 74.389 kg Intake: Intake, IV Amount 978.333 D5-0.45NS 1,000 ml @ 50 978.333 mls/hr IV .Q20H [facility] Rx#: [id number] Tube Feeding 600 840 Other 350 Output: Urine 1500 800 Stool 100 Urine/Stool Mix 100 Other: Stool Characteristics Soft Soft Brown Brown Active Medications: Current Medications Acetaminophen (Tylenol 650mg/20.3ml Suspension) 650 mg GT Q4H PRN PRN Reason: Pain or Fever >101 Stop: 09/16/17 23:47 Last Admin: 07/22/17 00:35 Dose: 650 mg Albuterol/Ipratropium (Duoneb Neb) 3 ml HHN Q6HRT ISABELLE Stop: 09/17/17 12:59 Last Admin: 07/31/17 14:21 Dose: 3 ml Albuterol/Ipratropium (Duoneb Neb) 3 ml HHN Q2HR PRN PRN Reason: Shortness of Breath Stop: 09/16/17 23:47 Ascorbic Acid (Vitamin C) 500 mg GT DAILY ISABELLE Stop: 09/17/17 08:59 Last Admin: 07/31/17 09:58 Dose: 500 mg Bisacodyl (Dulcolax 10 Mg Supp) 10 mg RC DAILY PRN PRN Reason: constip Stop: 09/16/17 23:47 Calamine/Phenol (Calmoseptine) 1 appl TP QID PRN PRN Reason: Skin Irritation Stop: 09/24/17 09:35 Calamine/Phenol (Calmoseptine) 1 appl TP QID ISABELLE Stop: 09/24/17 12:59 Last Admin: 07/31/17 13:52 Dose: 1 appl Carvedilol (Coreg) 6.25 mg GT BID IS[facility]ELLE Stop: 09/17/17 08:59 Last Admin: 07/31/17 09:58 Dose: 6.25 mg [place] Oil/[place] Balsam/Trypsin (Venelex) 1 appl TP DAILY ISABELLE Stop: 09/25/17 08:59 Last Admin: 07/31/17 10:00 Dose: 1 appl Chlorhexidine Gluconate (Peridex) 15 ml MM 0800,2000 ISABELLE Stop: 09/17/17 07:59 Last Admin: 07/31/17 08:15 Dose: 15 ml Docusate Sodium (Colace) 100 mg GT BID PRN PRN Reason: Constipation Famotidine (Pepcid) 20 mg GT Q12H ISABELLE Stop: 09/16/17 23:44 Last Admin: 07/31/17 12:08 Dose: 20 mg Guaifenesin (Robitussin) 200 mg PO Q4HR PRN PRN Reason: Cough or Congestion Stop: 09/16/17 23:54 Heparin Sodium (Porcine) (Heparin) 5,000 units SUBQ Q12HR [facility]ELLE Stop: 09/17/17 08:59 Last Admin: 07/31/17 10:01 Dose: Not Given Dextrose/Sodium Chloride (D5-0.45ns) 1,000 mls @ 50 mls/hr IV .Q20H [facility] Stop: 09/24/17 17:14 Last Admin: 07/31/17 00:00 Dose: 50 mls/hr Vancomycin HCl 1 gm/ Dextrose 250 mls @ 165 mls/hr IV Q36H [facility] Stop: 09/24/17 20:59 Last Admin: 07/31/17 09:57 Dose: 165 mls/hr Meropenem 1 gm/ Sodium (Chloride) 100 mls @ 100 mls/hr IV Q12H [facility] Stop: 09/29/17 14:59 Insulin Aspart (Novolog) 0 units SUBQ Q6HR ISABELLE PRN Reason: Protocol Stop: 09/18/17 17:59 Last Admin: 07/31/17 12:10 Dose: 3 units Insulin Detemir (Levemir Insulin) 24 units SUBQ BID ISABELLE PRN Reason: Protocol Stop: 09/20/17 08:59 Last Admin: 07/31/17 10:15 Dose: 24 units Magnesium Hydroxide (Milk Of Magnesia) 30 ml GT HS PRN PRN Reason: Constipation Stop: 09/16/17 23:47 Metoclopramide HCl (Reglan) 10 mg GT Q8H [facility] Stop: 09/20/17 13:01 Last Admin: 07/31/17 13:52 Dose: 10 mg Miscellaneous (Vancomycin Iv Per Pharmacy) 1 ea MC PRN [facility] Stop: 09/16/17 23:44 Miscellaneous (Clinical Monitoring) 1 ea MC PRN PRN PRN Reason: RENAL DOSE ZOSYN Stop: 09/17/17 08:23 Miscellaneous (Probiotic Screen) 1 ea MC PRN PRN PRN Reason: PROTOCOL Stop: 09/17/17 10:14 Miscellaneous (Vte Chemical Prophylaxis Screen/ Admission) 1 ea MC PRN PRN PRN Reason: PROTOCOL Stop: 09/17/17 13:47 Morphine Sulfate (Morphine) 2 mg IVP Q4H PRN PRN Reason: Pain (Severe) Stop: 09/16/17 23:53 Last Admin: 07/24/17 23:27 Dose: 2 mg Ondansetron HCl (Zofran) 4 mg IV Q8H PRN PRN Reason: Nausea / Vomiting Stop: 09/16/17 23:54 Last Admin: 07/21/17 18:48 Dose: 4 mg Potassium Chloride (Potassium Chloride Elixir) 20 meq GT BID ISABELLE Stop: 08/01/17 17:01 Last Admin: 07/31/17 09:58 Dose: 20 meq Sodium Phosphate (Fleet Enema) 135 ml RC Q48H PRN PRN Reason: Constipation Stop: 09/16/17 23:47 Zinc Sulfate (Zinc Sulfate) 220 mg GT DAILY ISABELLE Stop: 09/17/17 08:59 Last Admin: 07/31/17 09:59 Dose: 220 mg General: weak, congested, demented, obtunded HEENT: NC/AT, PERRLA Neck: Supple, + trach Lungs: congested, rales, ronchi Cardiovascular: RRR, without murmur Abdomen: soft, non-tender, non-distended, +GT, positive bowel sound Extremities: excoriation, ulcers stage 3 Neurological: bedbound, spastic - Procedures Procedures: Procedures Procedure Code Date RESPIRATORY VENTILATION, GREATER THAN 96 CONSECUTIVE HOURS [id number] 07/18/17 Internal Medicine Assmt/Plan - Assessment Assessment: fever, leukocytosis sepsis cdiff chronic respiratory failure VDRF leukocytosis hematuria-improved htn dm2 cad chf anemia tracheostomy status hypokalemia acute renal insufficiency elevated troponin mild protein calorie malnutrition acute uti - Plan Plan: LTAC EVAL contact isolation continue with ivabx renal follow up monitor h/h follow up labs in am vent support continue current plan of care - Plan Plan: cont on iv abx monitor wbc cpm dw rn Nutritional Asmnt/Malnutr-PDOC - Dietary Evaluation Malnutrition Findings (Please click <Entered> for more info): Nutritional Asmnt/Malnutrition Start: 07/19/17 17: 24 Text: Status: Complete Freq: Document 07/19/17 17:25 LCHENG (Rec: 07/19/17 17:43 LCHENG [email or web address]) Nutritional Asmnt/Malnutrition Patient General Information Nutritional Screening High Risk Consult Diagnosis Sepsis, UTI Pertinent Medical Hx/Surgical Hx HTN, DM, CAD, CHF, chronic resperatory failure, anemia, PEG/Gtube, tracheostomy Subjective Information Consult received for elevated BG. Pt seen lying in bed, on vent, non verbal comminication noted. Not able to obtain nutrition hx. Spoke with RN, no nutrition plan at this time . Current Diet Order/ Nutrition Support NPO Pertinent Medications Vitamin C, novolog, cultrelle, reglan, vancomycin, , piperacillin, Nacl 0.9%, Zinc Pertinent Labs 07/19 Na 132, K 5.3, Cl 97L, BUN 137, Cr 2.7, Glu 353, POC 324-394, A1C 6.2 Nutritional Hx/Data Height 1.57 m Height (Calculated Centimeters) 157.5 Current Weight (lbs) 80.83 kg Weight (Calculated Kilograms) 80.8 Weight (Calculated Grams) 82757.2 [place] Body Weight 110 % [place] Body Weight 162 Body Mass Index (BMI) 32.5 Weight Status Obese GI Symptoms GI Symptoms None Last BM none Usual diet at home Glucerna 1.5 60ml/hr x 20hr daily at [facility] Skin Integrity/Comment: decubitus ulceration to sacrum Estimated Nutritional Goals BEE in Kcals: Adj wt of IBW Calories/Kcals/Kg 30-35 Kcals Calculated 4642-7731 Protein: Adj wt of IBW Protein g/k.2-1.5 Protein Calculated 69-87 Fluid: ml Nutritional Problem 2. Problem Problem increased nutrition needs ( calorie and protein) Etiology increased metabolic demand for healing Signs/Symptoms: sepsis 1. Problem Problem altered nutrition related lab values Etiology hx of DM, acute renal insufficiency Signs/Symptoms: BUN 137, Cr 2.7, Glu 353, POC 324-394, A1C 6.2 Malnutrition Alert Protein-Calorie Malnutrition N/A Is there a minimum of two criteria No selected? Query Text:Check all the applicable criteria. A minimum of two criteria are recommended for diagnosis of either severe or non-severe malnutrition. Intervention/Recommendation Comments 1. Monitor NPO status. 2. If enteral feeding needed, recommend to start Diabetisource AC at 30ml/hr continuous. Increased to goal rate of 60ml/hr continuous as tolerated. This will provide 1728kcal, 86g protein and 1179ml water, meeting 100% of nutritional needs. 3. Monitor wt, labs and skin integrity 4. F/U as high risk in 2-3 days, 07/21-07/22 Expected Outcomes/Goals Expected Outcomes/Goals 1. Pt to meet at least 75% of nutritional needs in 2-3 days 2. Wt stability, skin to remain intact, labs to improve .
[2017-07-31] MEDS: Meropenem 1 GM in Sodium Chloride 0.9% 100 ML IV SCH (15:00)
[2017-07-31] MEDS: D5-0.45NS 1,000 ML IV SCH ×2 (23:15)
[2017-08-01] MEDS ORDERED: Albuterol/Ipratropium Neb 3 ML AERS HHN ONE (00:38)
[2017-08-01] MEDS: Albuterol/Ipratropium Neb 3 ML AERS HHN SCH ×3 (00:43→19:13)
[2017-08-01] MEDS: Meropenem 1 GM in Sodium Chloride 0.9% 100 ML IV SCH (03:37)
[2017-08-01 06:05] LABS: EOSINOPHILE ABSOLUTE 0.4 Th/cmm (0.1-0.4); HEMATOCRIT 27.1 % (41.0-60); HEMOGLOBIN 9.2 gm/dL (12-16); MANUAL DIFF REQUIRED? YES; MEAN CELL VOLUME 85.9 fl (81-100); MEAN CORPUSCULAR HEMOGLOBIN 29.2 pg (27.0-31.0); MEAN CORPUSCULAR HGB CONC 33.9 pg (28.0-36.0); MEAN PLATELET VOLUME 10.6 fl; MONOCYTE ABSOLUTE 0.2 Th/cmm (0.3-1.0); NEUTROPHILE ABSOLUTE 23.2 Th/cmm (1.8-8.0); PLATELET COUNT 351 Th/cmm (150-400); RED BLOOD COUNT 3.15 Mil/cmm (3.80-5.10); RED CELL DISTRIBUTION WIDTH 14.7 % (11.5-20.0)
[2017-08-01 06:09] LABS: WHITE BLOOD COUNT 25.8 Th/cmm (4.8-10.8)
[2017-08-01 06:22] LABS: ALB/GLOB RATIO 0.8 (1.0-1.8); ALBUMIN 2.9 gm/dL (3.7-5.3); ALKALINE PHOSPHATASE 111 U/L (34-104); ANION GAP 9.9 (7.0-16.0); BILIRUBIN,TOTAL 0.3 mg/dL (0.3-1.0); BUN - UREA NITROGEN 37 mg/dL (7-25); CARBON DIOXIDE 21.9 mEq/L (21.0-31.0); CHLORIDE 105 mEq/L (98-107); CREATININE - SERUM 1.1 mg/dL (0.6-1.2); GFR AFRICAN-AMERICAN > 60.0 ml/min (>90); GFR NON AFRICAN-AMERICAN 53.5 ml/min; GLUCOSE 155 mg/dL (70-105); POTASSIUM SERUM 4.8 mEq/L (3.5-5.1); SGOT 9 U/L (13-39); SGPT/ALT 11 U/L (7-52); SODIUM SERUM 132 mEq/L (136-145); TOTAL PROTEIN,SERUM 6.4 gm/dL (6.0-8.3)
[2017-08-01 06:23] LABS: BAND NEUTROPHILE 3 % (0-10); LYMPHOCYTE 11 % (20-50); MONOCYTE 2 % (2-10); NEUTROPHILS 84 % (40-80); TOTAL CELLS COUNTED 100
[2017-08-01] MEDS: INSULIN ASPART, RECOMBINANT 100 UNITS/ML SUBQ SCH ×3 (06:41→18:37)
[2017-08-01] MEDS ORDERED: Ipratropium Neb 0.5 mg/2.5 mL UD HHN SCH (07:00)
[2017-08-01] MEDS ORDERED: Albuterol Nebulizer 2.5mg/3mL HHN SCH (07:00)
[2017-08-01] MEDS: Chlorhexidine Gluconate 0.12% 15mL Mouthwash MM SCH ×2 (08:35→21:24)
--- NOTE | 2017-08-01 09:00 | Diagnostic Imaging Report ---
Exam: Portable chest x-ray. HISTORY: PICC line placement. Findings: Portable examination of the chest at 1239 hours reviewed. The study is suboptimal due to nonvisualization of the left hemithorax. The right-sided PICC line terminates in superior vena cava. IMPRESSION: Right-sided PICC line terminates in superior vena cava.
[2017-08-01] MEDS: Multivitamin w/ Minerals Tab GT SCH (09:33)
[2017-08-01] MEDS: Menthol/Zinc Oxide Oint 113gm Tube TP SCH ×4 (09:34→21:24)
[2017-08-01] MEDS: Venelex 60gm Tube TP SCH (09:34)
[2017-08-01] MEDS: Potassium Chloride Elixir 20 mEq /15 mL UDC GT SCH ×2 (09:34→17:30)
[2017-08-01] MEDS: Insulin Detemir 100 units/mL 10mL Vial SUBQ SCH ×2 (09:43→18:38)
[2017-08-01] MEDS: Lactobacillus Rhamnosus GG 15 Billion CFU CAP.SPRINK PO SCH (13:17)
--- NOTE | 2017-08-01 14:59 | Internal Medicine Prog Note ---
Internal Medicine Subjective - Subjective Patient seen and examined:: with staff, chart reviewed, other (daughter s at bedside) Patient is:: asleep, non-verbal, non-interactive, in bed, congested, stares blankly Patient Complaints of:: congestion, bloated Per staff patient has:: no adverse event, tolerating meds Internal Medicine Objective - Results Result Diagrams: 08/01/17 05:55 08/01/17 05:55 Recent Labs: Laboratory Last Values WBC 25.8 Th/cmm (4.8-10.8) H* 08/01/17 05:55 RBC 3.15 Mil/cmm (3.80-5.10) L 08/01/17 05:55 Hgb 9.2 gm/dL (12-16) L 08/01/17 05:55 Hct 27.1 % (41.0-60) L 08/01/17 05:55 MCV 85.9 fl (81-100) 08/01/17 05:55 MCH 29.2 pg (27.0-31.0) 08/01/17 05:55 MCHC Differential 33.9 pg (28.0-36.0) 08/01/17 05:55 RDW 14.7 % (11.5-20.0) 08/01/17 05:55 Plt Count 351 Th/cmm (150-400) 08/01/17 05:55 MPV 10.6 fl 08/01/17 05:55 Neutrophils % 76.5 % (40.0-80.0) 07/30/17 23:32 Band Neutrophils % 3 % (0-10) 08/01/17 05:55 Lymphocytes % 15.3 % (20.0-50.0) L 07/30/17 23:32 Monocytes % 6.3 % (2.0-10.0) 07/30/17 23:32 Eosinophils % 1.4 % (0.0-5.0) 07/30/17 23:32 Basophils % 0.5 % (0.0-2.0) 07/30/17 23:32 Neutrophils (Manual) 84 % (40-80) H 08/01/17 05:55 Lymphocytes 11 % (20-50) L 08/01/17 05:55 Monocytes 2 % (2-10) 08/01/17 05:55 Eosinophils 1 % (0-5) 07/30/17 04:30 Hypochromia 1+ 07/30/17 04:30 Platelet Estimate ADEQUATE (NORMAL) 07/30/17 04:30 Polychromasia 1+ 07/30/17 04:30 Smear Path Review YES 07/18/17 22:15 Eos Smear Source URINE 07/19/17 22:30 Eos Smear Total Cells NONE SEEN (NONE SEEN) 07/19/17 22:30 PT 10.4 SECONDS (9.5-11.5) 07/30/17 15:12 INR 1.00 (0.5-1.4) 07/30/17 15:12 PTT (Actin FS) 27.5 SECONDS (26.0-38.0) 07/30/17 15:12 Specimen Source Arterial 07/25/17 14:15 Sample Site RIGHT BRACHIAL 07/25/17 14:15 pH 7.48 (7.35-7.45) H 07/25/17 14:15 pCO2 33.0 mmHg (35.0-45.0) L 07/25/17 14:15 pO2 144.0 mmHg (80.0-100.0) H 07/25/17 14:15 HCO3 26.1 mEq/L (20.0-26.0) H 07/25/17 14:15 Base Excess 1.5 mEq/L (-3.0-3.0) 07/25/17 14:15 O2 Saturation 99.0 % (92.0-100.0) 07/25/17 14:15 Cricket Test Positive 07/25/17 14:15 Vent Rate 12 07/25/17 14:15 Inspired O2 35 07/25/17 14:15 Tidal Volume 500 07/25/17 14:15 PEEP 5 07/25/17 14:15 Pressure (ins/psv/peep) N/A 07/25/17 14:15 Critical Value HSTEHNO 07/25/17 14:15 Sodium 132 mEq/L (136-145) L 08/01/17 05:55 Potassium 4.8 mEq/L (3.5-5.1) 08/01/17 05:55 Chloride 105 mEq/L (98-107) 08/01/17 05:55 Carbon Dioxide 21.9 mEq/L (21.0-31.0) 08/01/17 05:55 Anion Gap 9.9 (7.0-16.0) 08/01/17 05:55 BUN 37 mg/dL (7-25) H 08/01/17 05:55 Creatinine 1.1 mg/dL (0.6-1.2) 08/01/17 05:55 Est GFR ( Amer) > 60.0 ml/min (>90) 08/01/17 05:55 Est GFR (Non-Af Amer) 53.5 ml/min 08/01/17 05:55 BUN/Creatinine Ratio 33.6 08/01/17 05:55 Glucose 155 mg/dL (70-105) H 08/01/17 05:55 POC Glucose 175 MG/DL (70 - 105) H 08/01/17 13:13 Hemoglobin A1c % 6.2 % (4.0-6.0) H 07/18/17 23:30 Plasma/Ser Osmolality 344 mOsmol/kg (280-301) H 07/19/17 23:30 Whole Bld Lactic Acid 0.61 mmol/L (0.60-1.99) 07/20/17 04:10 Uric Acid 9.5 mg/dL (2.3-6.6) H 07/20/17 04:10 Calcium 9.0 mg/dL (8.6-10.3) 08/01/17 05:55 Phosphorus 4.5 mg/dL (2.5-5.0) 07/20/17 04:10 Magnesium 1.8 mg/dL (1.9-2.7) L 07/28/17 05:00 Iron 36 ug/dL (27-139) 07/30/17 04:30 TIBC 160 ug/dL (250-450) L 07/30/17 04:30 Iron Saturation 23 % (15-55) 07/30/17 04:30 Unsaturated IBC 124 ug/dL (118-369) 07/30/17 04:30 Total Bilirubin 0.3 mg/dL (0.3-1.0) 08/01/17 05:55 AST 9 U/L (13-39) L 08/01/17 05:55 ALT 11 U/L (7-52) 08/01/17 05:55 Alkaline Phosphatase 111 U/L (34-104) H 08/01/17 05:55 Ammonia 50 umol/L (16-53) 07/28/17 06:00 Creatine Kinase 26 U/L (30-223) L 07/18/17 22:15 Troponin I 0.27 ng/mL (0.01-0.05) H* 07/18/17 22:15 B-Natriuretic Peptide 542.0 pg/mL (5.0-100.0) H 07/31/17 07:00 Total Protein 6.4 gm/dL (6.0-8.3) 08/01/17 05:55 Albumin 2.9 gm/dL (3.7-5.3) L 08/01/17 05:55 Globulin 3.5 gm/dL 08/01/17 05:55 Albumin/Globulin Ratio 0.8 (1.0-1.8) L 08/01/17 05:55 Vitamin B12 1119 pg/mL (232-1245) 07/23/17 04:33 Folic Acid >20.0 ng/mL (>3.0) 07/23/17 04:33 TSH 2.30 uIU/ml (0.34-5.60) 07/19/17 04:15 Urine Source [place] 07/18/17 21:30 Urine Color RED 07/18/17 21:30 Urine Clarity CLOUDY (CLEAR) H 07/18/17 21:30 Urine pH 7.5 (4.6 - 8.0) 07/18/17 21:30 Ur Specific [place] 1.025 (1.005-1.030) 07/18/17 21:30 Urine Protein >=300 mg/dL (NEGATIVE) 07/18/17 21:30 Urine Glucose (UA) NEGATIVE mg/dL (NEGATIVE) 07/18/17 21:30 Urine Ketones NEGATIVE mg/dL (NEGATIVE) 07/18/17 21:30 Urine Blood LARGE (NEGATIVE) H 07/18/17 21:30 Urine Nitrate NEGATIVE (NEGATIVE) 07/18/17 21:30 Urine Bilirubin NEGATIVE (NEGATIVE) 07/18/17 21:30 Urine Urobilinogen 0.2 E.U./dL (0.2 - 1.0) 07/18/17 21:30 Ur Leukocyte Esterase SMALL (NEGATIVE) H 07/18/17 21:30 Urine RBC 50-100 /hpf (0-5) H 07/18/17 21:30 Urine WBC 6-10 /hpf (0-5) H 07/18/17 21:30 Ur Epithelial Cells FEW /lpf (FEW) 07/18/17 21:30 Urine Bacteria MANY /hpf (NONE SEEN) 07/18/17 21:30 Ur Random Sodium 28 mmol/L 07/19/17 22:30 Urine Creatinine 26.3 mg/dl (Not Estab.) 07/19/17 22:30 Urine Microalbumin 2398.5 ug/mL (Not Estab.) 07/19/17 22:30 Microalb/Creat Ratio 9119.8 07/19/17 22:30 Stool Occult Blood NEGATIVE (NEGATIVE) 07/24/17 03:37 Vancomycin Trough 23.0 ug/mL (10-20) H 07/29/17 20:00 Random Vancomycin 31.7 ug/mL (5.0-40.0) 08/01/17 05:55 Blood Type O NEGATIVE 07/20/17 08:15 Antibody Screen NEGATIVE 07/20/17 08:15 - Physical Exam Vitals and I&O: Vital Signs Temp 97.1 F 08/01/17 11:00 Pulse 80 08/01/17 13:10 Resp 19 08/01/17 11:00 BP 126/43 08/01/17 11:00 Pulse Ox 100 08/01/17 13:10 Intake & Output 07/31/17 08/01/17 08/01/17 18:59 06:59 18:59 Intake Total 1490 2542.5 Output Total 2400 1000 Balance -910 1542.5 Weight (lbs) 76.26 kg 76.204 kg Intake: Intake, IV Amount 100 1702.5 D5-0.45NS 1,000 ml @ 50 1352.5 mls/hr IV .Q20H [facility] Rx#: [id number] Meropenem 1 gm In Sodium 100 100 Chloride 0.9% 100 ml @ 100 mls/hr IV Q12H [facility] Rx #:[id number] Vancomycin HCl 1 gm In 250 Dextrose 5% 250 ml @ 165 mls/hr IV Q36H [facility] Rx#: [id number] Tube Feeding 840 840 Other 550 Output: Urine 2400 1000 Other: Stool Characteristics Soft Soft Soft Brown Brown Brown Active Medications: Current Medications Acetaminophen (Tylenol 650mg/20.3ml Suspension) 650 mg GT Q4H PRN PRN Reason: Pain or Fever >101 Stop: 09/16/17 23:47 Last Admin: 07/22/17 00:35 Dose: 650 mg Albuterol Sulfate (Albuterol 2.5mg/3ml Neb Ud) 2.5 mg HHN Q6HRT [facility] Stop: 08/01/17 14:59 Last Admin: 08/01/17 13:09 Dose: 2.5 mg Albuterol/Ipratropium (Duoneb Neb) 3 ml HHN Q6HRT [facility] Stop: 09/17/17 12:59 Last Admin: 08/01/17 07:05 Dose: 3 ml Albuterol/Ipratropium (Duoneb Neb) 3 ml HHN Q2HR PRN PRN Reason: Shortness of Breath Stop: 09/16/17 23:47 Ascorbic Acid (Vitamin C) 500 mg GT DAILY [facility] Stop: 09/17/17 08:59 Last Admin: 08/01/17 09:33 Dose: 500 mg Bisacodyl (Dulcolax 10 Mg Supp) 10 mg RC DAILY PRN PRN Reason: constip Stop: 09/16/17 23:47 Calamine/Phenol (Calmoseptine) 1 appl TP QID PRN PRN Reason: Skin Irritation Stop: 09/24/17 09:35 Calamine/Phenol (Calmoseptine) 1 appl TP QID [facility] Stop: 09/24/17 12:59 Last Admin: 08/01/17 13:16 Dose: 1 appl Carvedilol (Coreg) 6.25 mg GT BID [facility] Stop: 09/17/17 08:59 Last Admin: 08/01/17 09:33 Dose: 6.25 mg [place] Oil/[place] Balsam/Trypsin (Venelex) 1 appl TP DAILY [facility] Stop: 09/25/17 08:59 Last Admin: 08/01/17 09:34 Dose: 1 appl Chlorhexidine Gluconate (Peridex) 15 ml MM 0800,1999 [facility] Stop: 09/17/17 07:59 Last Admin: 08/01/17 08:35 Dose: 15 ml Docusate Sodium (Colace) 100 mg GT BID PRN PRN Reason: Constipation Famotidine (Pepcid) 20 mg GT Q12H [facility] Stop: 09/16/17 23:44 Last Admin: 08/01/17 12:10 Dose: 20 mg Guaifenesin (Robitussin) 200 mg PO Q4HR PRN PRN Reason: Cough or Congestion Stop: 09/16/17 23:54 Heparin Sodium (Porcine) (Heparin) 5,000 units SUBQ Q12HR [facility] Stop: 09/17/17 08:59 Last Admin: 08/01/17 09:35 Dose: 5,000 units Dextrose/Sodium Chloride (D5-0.45ns) 1,000 mls @ 50 mls/hr IV .Q20H [facility] Stop: 09/24/17 17:14 Last Infusion: 08/01/17 06:18 Dose: 50 mls/hr Vancomycin HCl 1 gm/ Dextrose 250 mls @ 165 mls/hr IV Q36H [facility] Stop: 09/24/17 20:59 Last Infusion: 08/01/17 06:19 Dose: Infused Meropenem 1 gm/ Dextrose 100 mls @ 100 mls/hr IV Q12H [facility] Stop: 09/30/17 14:59 Last Admin: 08/01/17 14:52 Dose: 100 mls/hr Insulin Aspart (Novolog) 0 units SUBQ Q6HR [facility] PRN Reason: Protocol Stop: 09/18/17 17:59 Last Admin: 08/01/17 13:13 Dose: 3 units Insulin Detemir (Levemir Insulin) 24 units SUBQ BID [facility] PRN Reason: Protocol Stop: 09/20/17 08:59 Last Admin: 08/01/17 09:43 Dose: 24 units Ipratropium [place] (Atrovent Neb 0.5mg/2.5ml) 0.5 mg HHN Q6HRT [facility] Stop: 08/01/17 14:59 Last Admin: 08/01/17 13:09 Dose: 0.5 mg Lactobacillus Rhamnosus (Culturelle 15b) 1 each PO DAILY [facility] Stop: 09/30/17 10:59 Last Admin: 08/01/17 13:17 Dose: 1 each Magnesium Hydroxide (Milk Of Magnesia) 30 ml GT HS PRN PRN Reason: Constipation Stop: 09/16/17 23:47 Metoclopramide HCl (Reglan) 10 mg GT Q8H [facility] Stop: 09/20/17 13:01 Last Admin: 08/01/17 13:08 Dose: 10 mg Miscellaneous (Vancomycin Iv Per Pharmacy) 1 ea MC PRN [facility] Stop: 09/16/17 23:44 Miscellaneous (Clinical Monitoring) 1 ea MC PRN PRN PRN Reason: RENAL DOSE ZOSYN Stop: 09/17/17 08:23 Miscellaneous (Probiotic Screen) 1 ea MC PRN PRN PRN Reason: PROTOCOL Stop: 09/17/17 10:14 Miscellaneous (Vte Chemical Prophylaxis Screen/ Admission) 1 ea MC PRN PRN PRN Reason: PROTOCOL Stop: 09/17/17 13:47 Morphine Sulfate (Morphine) 2 mg IVP Q4H PRN PRN Reason: Pain (Severe) Stop: 09/16/17 23:53 Last Admin: 07/24/17 23:27 Dose: 2 mg Ondansetron HCl (Zofran) 4 mg IV Q8H PRN PRN Reason: Nausea / Vomiting Stop: 09/16/17 23:54 Last Admin: 07/21/17 18:48 Dose: 4 mg Potassium Chloride (Potassium Chloride Elixir) 20 meq GT BID [facility] Stop: 08/01/17 17:01 Last Admin: 08/01/17 09:34 Dose: 20 meq Sodium Phosphate (Fleet Enema) 135 ml RC Q48H PRN PRN Reason: Constipation Stop: 09/16/17 23:47 Zinc Sulfate (Zinc Sulfate) 220 mg GT DAILY [facility] Stop: 09/17/17 08:59 Last Admin: 08/01/17 09:33 Dose: 220 mg General: weak, congested, demented, obtunded HEENT: NC/AT, PERRLA Neck: Supple, + trach Lungs: congested, rales, ronchi Cardiovascular: RRR, without murmur Abdomen: soft, non-tender, non-distended, +GT, positive bowel sound Extremities: excoriation, ulcers stage 3 Neurological: bedbound, spastic - Procedures Procedures: Procedures Procedure Code Date RESPIRATORY VENTILATION, GREATER THAN 96 CONSECUTIVE HOURS [id number] 07/18/17 Internal Medicine Assmt/Plan - Assessment Assessment: fever, leukocytosis sepsis cdiff chronic respiratory failure VDRF leukocytosis hematuria-improved htn dm2 cad chf anemia tracheostomy status hypokalemia acute renal insufficiency elevated troponin mild protein calorie malnutrition acute uti - Plan Plan: LTAC EVAL contact isolation continue with ivabx renal follow up monitor h/h follow up labs in am vent support continue current plan of care - Plan Plan: cont on iv abx monitor wbc cpm dw rn Nutritional Asmnt/Malnutr-PDOC - Dietary Evaluation Malnutrition Findings (Please click <Entered> for more info): Nutritional Asmnt/Malnutrition Start: 07/19/17 17: 24 Text: Status: Complete Freq: Document 07/19/17 17:25 LCHENG (Rec: 07/19/17 17:43 LCHENG [email or web address]) Nutritional Asmnt/Malnutrition Patient General Information Nutritional Screening High Risk Consult Diagnosis Sepsis, UTI Pertinent Medical Hx/Surgical Hx HTN, DM, CAD, CHF, chronic resperatory failure, anemia, PEG/Gtube, tracheostomy Subjective Information Consult received for elevated BG. Pt seen lying in bed, on vent, non verbal comminication noted. Not able to obtain nutrition hx. Spoke with RN, no nutrition plan at this time . Current Diet Order/ Nutrition Support NPO Pertinent Medications Vitamin C, novolog, cultrelle, reglan, vancomycin, , piperacillin, Nacl 0.9%, Zinc Pertinent Labs 07/19 Na 132, K 5.3, Cl 97L, BUN 137, Cr 2.7, Glu 353, POC 324-394, A1C 6.2 Nutritional Hx/Data Height 1.57 m Height (Calculated Centimeters) 157.5 Current Weight (lbs) 80.83 kg Weight (Calculated Kilograms) 80.8 Weight (Calculated Grams) 12058.2 [place] Body Weight 110 % [place] Body Weight 162 Body Mass Index (BMI) 32.5 Weight Status Obese GI Symptoms GI Symptoms None Last BM none Usual diet at home Glucerna 1.5 60ml/hr x 20hr daily at [facility] Skin Integrity/Comment: decubitus ulceration to sacrum Estimated Nutritional Goals BEE in Kcals: Adj wt of IBW Calories/Kcals/Kg 30-35 Kcals Calculated Protein: Adj wt of IBW Protein g/k.2-1.5 Protein Calculated 69-87 Fluid: ml Nutritional Problem 2. Problem Problem increased nutrition needs ( calorie and protein) Etiology increased metabolic demand for healing Signs/Symptoms: sepsis 1. Problem Problem altered nutrition related lab values Etiology hx of DM, acute renal insufficiency Signs/Symptoms: BUN 137, Cr 2.7, Glu 353, POC 324-394, A1C 6.2 Malnutrition Alert Protein-Calorie Malnutrition N/A Is there a minimum of two criteria No selected? Query Text:Check all the applicable criteria. A minimum of two criteria are recommended for diagnosis of either severe or non-severe malnutrition. Intervention/Recommendation Comments 1. Monitor NPO status. 2. If enteral feeding needed, recommend to start Diabetisource AC at 30ml/hr continuous. Increased to goal rate of 60ml/hr continuous as tolerated. This will provide 1728kcal, 86g protein and 1179ml water, meeting 100% of nutritional needs. 3. Monitor wt, labs and skin integrity 4. F/U as high risk in 2-3 days, 07/21-07/22 Expected Outcomes/Goals Expected Outcomes/Goals 1. Pt to meet at least 75% of nutritional needs in 2-3 days 2. Wt stability, skin to remain intact, labs to improve .
--- NOTE | 2017-08-01 15:33 | Progress Notes ---
DATE: 08/01/2017 UROLOGY PROGRESS NOTE SUBJECTIVE: The patient is clinically stable, but the white count remains elevated and without any proper source to explain it and after prolonged antibiotic therapy to cover most of the positive cultures, which include C. difficile and MRSA in the wound. Antibiotic was just changed to ____ as well, but the white count is high in spite of that. OBJECTIVE: VITAL SIGNS: Temperature 97.1, blood pressure 126/43, heart rate 70 and saturating 100% on the ventilator. GASTROINTESTINAL: Abdomen is soft, nondistended, nontender. Urine color is clear in the [place] with irrigation periodically. LABORATORY DATA: Sodium 132, potassium 4.8, BUN 37, creatinine 1.1, but white count remains elevated at 25.8. Blood and urine cultures have been negative. IMPRESSION: Persistent right hydronephrosis in spite of the [place] catheter and persistent elevated white count raised the suspicion for infection in this kidney that can only be ruled out with a percutaneous nephrostomy. I have tried to avoid this as much as possible given the general condition, but without the procedure, we will continue to be in the dark and keep using up more and more antibiotics. I have, therefore, recommended the procedure to be done by Interventional Radiology at [facility] as soon as possible. JOB# [id number]
[2017-08-02] MEDS: INSULIN ASPART, RECOMBINANT 100 UNITS/ML SUBQ SCH ×4 (00:17→17:19)
[2017-08-02] MEDS: Albuterol/Ipratropium Neb 3 ML AERS HHN SCH ×4 (01:37→19:08)
[2017-08-02 07:21] LABS: HEMATOCRIT 25.8 % (41.0-60); HEMOGLOBIN 8.8 gm/dL (12-16); MEAN CELL VOLUME 86.7 fl (81-100); MEAN CORPUSCULAR HEMOGLOBIN 29.4 pg (27.0-31.0); MEAN CORPUSCULAR HGB CONC 33.9 pg (28.0-36.0); MEAN PLATELET VOLUME 10.2 fl; PLATELET COUNT 347 Th/cmm (150-400); RED BLOOD COUNT 2.98 Mil/cmm (3.80-5.10); RED CELL DISTRIBUTION WIDTH 14.9 % (11.5-20.0)
[2017-08-02 07:24] LABS: MANUAL DIFF REQUIRED? YES; WHITE BLOOD COUNT 15.2 Th/cmm (4.8-10.8)
[2017-08-02 07:40] LABS: BAND NEUTROPHILE 2 % (0-10); EOSINOPHIL 1 % (0-5); LYMPHOCYTE 29 % (20-50); MONOCYTE 5 % (2-10); NEUTROPHILS 63 % (40-80); TOTAL CELLS COUNTED 100
[2017-08-02 07:45] LABS: ANION GAP 10.9 (7.0-16.0); BUN - UREA NITROGEN 45 mg/dL (7-25); CALCIUM SERUM 8.9 mg/dL (8.6-10.3); CARBON DIOXIDE 22.5 mEq/L (21.0-31.0); CHLORIDE 102 mEq/L (98-107); CREATININE - SERUM 1.1 mg/dL (0.6-1.2); GFR AFRICAN-AMERICAN > 60.0 ml/min (>90); GFR NON AFRICAN-AMERICAN 53.5 ml/min; GLUCOSE 101 mg/dL (70-105); POTASSIUM SERUM 5.4 mEq/L (3.5-5.1); SODIUM SERUM 130 mEq/L (136-145)
[2017-08-02] MEDS: Chlorhexidine Gluconate 0.12% 15mL Mouthwash MM SCH ×2 (08:35→20:02)
[2017-08-02] MEDS: Lactobacillus Rhamnosus GG 15 Billion CFU CAP.SPRINK PO SCH (09:51)
[2017-08-02] MEDS: Multivitamin w/ Minerals Tab GT SCH (09:52)
[2017-08-02] MEDS: Venelex 60gm Tube TP SCH (09:52)
[2017-08-02] MEDS: Menthol/Zinc Oxide Oint 113gm Tube TP SCH ×4 (09:53→20:36)
[2017-08-02] MEDS: Insulin Detemir 100 units/mL 10mL Vial SUBQ SCH ×2 (09:53→17:19)
--- NOTE | 2017-08-02 10:46 | Internal Medicine Prog Note ---
Internal Medicine Subjective - Subjective Service Date: 08/02/17 Patient seen and examined:: with staff Patient is:: asleep, non-verbal, non-interactive, in bed, congested, stares blankly Patient Complaints of:: congestion, bloated Per staff patient has:: no adverse event, tolerating meds Internal Medicine Objective - Results Result Diagrams: 08/02/17 06:30 08/02/17 06:30 Recent Labs: Laboratory Last Values WBC 15.2 Th/cmm (4.8-10.8) H D 08/02/17 06:30 RBC 2.98 Mil/cmm (3.80-5.10) L 08/02/17 06:30 Hgb 8.8 gm/dL (12-16) L 08/02/17 06:30 Hct 25.8 % (41.0-60) L 08/02/17 06:30 MCV 86.7 fl (81-100) 08/02/17 06:30 MCH 29.4 pg (27.0-31.0) 08/02/17 06:30 MCHC Differential 33.9 pg (28.0-36.0) 08/02/17 06:30 RDW 14.9 % (11.5-20.0) 08/02/17 06:30 Plt Count 347 Th/cmm (150-400) 08/02/17 06:30 MPV 10.2 fl 08/02/17 06:30 Neutrophils % 76.5 % (40.0-80.0) 07/30/17 23:32 Band Neutrophils % 2 % (0-10) 08/02/17 06:30 Lymphocytes % 15.3 % (20.0-50.0) L 07/30/17 23:32 Monocytes % 6.3 % (2.0-10.0) 07/30/17 23:32 Eosinophils % 1.4 % (0.0-5.0) 07/30/17 23:32 Basophils % 0.5 % (0.0-2.0) 07/30/17 23:32 Neutrophils (Manual) 63 % (40-80) 08/02/17 06:30 Lymphocytes 29 % (20-50) 08/02/17 06:30 Monocytes 5 % (2-10) 08/02/17 06:30 Eosinophils 1 % (0-5) 08/02/17 06:30 Hypochromia 1+ 07/30/17 04:30 Platelet Estimate ADEQUATE (NORMAL) 07/30/17 04:30 Polychromasia 1+ 07/30/17 04:30 Smear Path Review YES 07/18/17 22:15 Eos Smear Source URINE 07/19/17 22:30 Eos Smear Total Cells NONE SEEN (NONE SEEN) 07/19/17 22:30 PT 10.4 SECONDS (9.5-11.5) 07/30/17 15:12 INR 1.00 (0.5-1.4) 07/30/17 15:12 PTT (Actin FS) 27.5 SECONDS (26.0-38.0) 07/30/17 15:12 Specimen Source Arterial 07/25/17 14:15 Sample Site RIGHT BRACHIAL 07/25/17 14:15 pH 7.48 (7.35-7.45) H 07/25/17 14:15 pCO2 33.0 mmHg (35.0-45.0) L 07/25/17 14:15 pO2 144.0 mmHg (80.0-100.0) H 07/25/17 14:15 HCO3 26.1 mEq/L (20.0-26.0) H 07/25/17 14:15 Base Excess 1.5 mEq/L (-3.0-3.0) 07/25/17 14:15 O2 Saturation 99.0 % (92.0-100.0) 07/25/17 14:15 Cricket Test Positive 07/25/17 14:15 Vent Rate 12 07/25/17 14:15 Inspired O2 35 07/25/17 14:15 Tidal Volume 500 07/25/17 14:15 PEEP 5 07/25/17 14:15 Pressure (ins/psv/peep) N/A 07/25/17 14:15 Critical Value HSTEHNO 07/25/17 14:15 Sodium 130 mEq/L (136-145) L 08/02/17 06:30 Potassium 5.4 mEq/L (3.5-5.1) H 08/02/17 06:30 Chloride 102 mEq/L (98-107) 08/02/17 06:30 Carbon Dioxide 22.5 mEq/L (21.0-31.0) 08/02/17 06:30 Anion Gap 10.9 (7.0-16.0) 08/02/17 06:30 BUN 45 mg/dL (7-25) H 08/02/17 06:30 Creatinine 1.1 mg/dL (0.6-1.2) 08/02/17 06:30 Est GFR ( Amer) > 60.0 ml/min (>90) 08/02/17 06:30 Est GFR (Non-Af Amer) 53.5 ml/min 08/02/17 06:30 BUN/Creatinine Ratio 40.9 08/02/17 06:30 Glucose 101 mg/dL (70-105) 08/02/17 06:30 POC Glucose 93 MG/DL (70 - 105) 08/02/17 06:04 Hemoglobin A1c % 6.2 % (4.0-6.0) H 07/18/17 23:30 Plasma/Ser Osmolality 344 mOsmol/kg (280-301) H 07/19/17 23:30 Whole Bld Lactic Acid 0.61 mmol/L (0.60-1.99) 07/20/17 04:10 Uric Acid 9.5 mg/dL (2.3-6.6) H 07/20/17 04:10 Calcium 8.9 mg/dL (8.6-10.3) 08/02/17 06:30 Phosphorus 4.5 mg/dL (2.5-5.0) 07/20/17 04:10 Magnesium 1.8 mg/dL (1.9-2.7) L 07/28/17 05:00 Iron 36 ug/dL (27-139) 07/30/17 04:30 TIBC 160 ug/dL (250-450) L 07/30/17 04:30 Iron Saturation 23 % (15-55) 07/30/17 04:30 Unsaturated IBC 124 ug/dL (118-369) 07/30/17 04:30 Total Bilirubin 0.3 mg/dL (0.3-1.0) 08/01/17 05:55 AST 9 U/L (13-39) L 08/01/17 05:55 ALT 11 U/L (7-52) 08/01/17 05:55 Alkaline Phosphatase 111 U/L (34-104) H 08/01/17 05:55 Ammonia 50 umol/L (16-53) 07/28/17 06:00 Creatine Kinase 26 U/L (30-223) L 07/18/17 22:15 Troponin I 0.27 ng/mL (0.01-0.05) H* 07/18/17 22:15 B-Natriuretic Peptide 309.0 pg/mL (5.0-100.0) H 08/02/17 06:30 Total Protein 6.4 gm/dL (6.0-8.3) 08/01/17 05:55 Albumin 2.9 gm/dL (3.7-5.3) L 08/01/17 05:55 Globulin 3.5 gm/dL 08/01/17 05:55 Albumin/Globulin Ratio 0.8 (1.0-1.8) L 08/01/17 05:55 Vitamin B12 1119 pg/mL (232-1245) 07/23/17 04:33 Folic Acid >20.0 ng/mL (>3.0) 07/23/17 04:33 TSH 2.30 uIU/ml (0.34-5.60) 07/19/17 04:15 Urine Source [place] 07/18/17 21:30 Urine Color RED 07/18/17 21:30 Urine Clarity CLOUDY (CLEAR) H 07/18/17 21:30 Urine pH 7.5 (4.6 - 8.0) 07/18/17 21:30 Ur Specific [place] 1.025 (1.005-1.030) 07/18/17 21:30 Urine Protein >=300 mg/dL (NEGATIVE) 07/18/17 21:30 Urine Glucose (UA) NEGATIVE mg/dL (NEGATIVE) 07/18/17 21:30 Urine Ketones NEGATIVE mg/dL (NEGATIVE) 07/18/17 21:30 Urine Blood LARGE (NEGATIVE) H 07/18/17 21:30 Urine Nitrate NEGATIVE (NEGATIVE) 07/18/17 21:30 Urine Bilirubin NEGATIVE (NEGATIVE) 07/18/17 21:30 Urine Urobilinogen 0.2 E.U./dL (0.2 - 1.0) 07/18/17 21:30 Ur Leukocyte Esterase SMALL (NEGATIVE) H 07/18/17 21:30 Urine RBC 50-100 /hpf (0-5) H 07/18/17 21:30 Urine WBC 6-10 /hpf (0-5) H 07/18/17 21:30 Ur Epithelial Cells FEW /lpf (FEW) 07/18/17 21:30 Urine Bacteria MANY /hpf (NONE SEEN) 07/18/17 21:30 Ur Random Sodium 28 mmol/L 07/19/17 22:30 Urine Creatinine 26.3 mg/dl (Not Estab.) 07/19/17 22:30 Urine Microalbumin 2398.5 ug/mL (Not Estab.) 07/19/17 22:30 Microalb/Creat Ratio 9119.8 07/19/17 22:30 Stool Occult Blood NEGATIVE (NEGATIVE) 07/24/17 03:37 Vancomycin Trough 23.0 ug/mL (10-20) H 07/29/17 20:00 Random Vancomycin 31.7 ug/mL (5.0-40.0) 08/01/17 05:55 Blood Type O NEGATIVE 07/20/17 08:15 Antibody Screen NEGATIVE 07/20/17 08:15 - Physical Exam Vitals and I&O: Vital Signs Temp 96.8 F 08/02/17 08:00 Pulse 70 08/02/17 09:51 Resp 21 08/02/17 08:00 BP 128/45 08/02/17 09:51 Pulse Ox 100 08/02/17 09:33 Intake & Output 08/01/17 08/02/17 08/02/17 18:59 06:59 18:59 Intake Total 1490 840 Output Total 1150 850 Balance 340 -10 Weight (lbs) 169 lb 3 oz 188 lb 4 oz Intake: Intake, IV Amount 100 Meropenem 1 gm In 100 Dextrose 5% 100 ml @ 100 mls/hr IV Q12H [facility] Rx#: [id number] Tube Feeding 840 840 Other 550 Output: Urine 950 850 Stool 200 Other: # Bowel Movements 2 Stool Characteristics Soft Liquid Soft Brown Brown Active Medications: Current Medications Acetaminophen (Tylenol 650mg/20.3ml Suspension) 650 mg GT Q4H PRN PRN Reason: Pain or Fever >101 Stop: 09/16/17 23:47 Last Admin: 07/22/17 00:35 Dose: 650 mg Albuterol/Ipratropium (Duoneb Neb) 3 ml HHN Q6HRT [facility] Stop: 09/17/17 12:59 Last Admin: 08/02/17 07:46 Dose: 3 ml Albuterol/Ipratropium (Duoneb Neb) 3 ml HHN Q2HR PRN PRN Reason: Shortness of Breath Stop: 09/16/17 23:47 Ascorbic Acid (Vitamin C) 500 mg GT DAILY [facility] Stop: 09/17/17 08:59 Last Admin: 08/02/17 09:51 Dose: 500 mg Bisacodyl (Dulcolax 10 Mg Supp) 10 mg RC DAILY PRN PRN Reason: constip Stop: 09/16/17 23:47 Calamine/Phenol (Calmoseptine) 1 appl TP QID PRN PRN Reason: Skin Irritation Stop: 09/24/17 09:35 Calamine/Phenol (Calmoseptine) 1 appl TP QID [facility] Stop: 09/24/17 12:59 Last Admin: 08/02/17 09:53 Dose: 1 appl Carvedilol (Coreg) 6.25 mg GT BID [facility] Stop: 09/17/17 08:59 Last Admin: 08/02/17 09:51 Dose: 6.25 mg [place] Oil/[place] Balsam/Trypsin (Venelex) 1 appl TP DAILY [facility] Stop: 09/25/17 08:59 Last Admin: 08/02/17 09:52 Dose: 1 appl Chlorhexidine Gluconate (Peridex) 15 ml MM 08,1999 [facility] Stop: 09/17/17 07:59 Last Admin: 08/02/17 08:35 Dose: 15 ml Docusate Sodium (Colace) 100 mg GT BID PRN PRN Reason: Constipation Famotidine (Pepcid) 20 mg GT Q12H [facility] Stop: 09/16/17 23:44 Last Admin: 08/02/17 00:17 Dose: 20 mg Guaifenesin (Robitussin) 200 mg PO Q4HR PRN PRN Reason: Cough or Congestion Stop: 09/16/17 23:54 Heparin Sodium (Porcine) (Heparin) 5,000 units SUBQ Q12HR [facility] Stop: 09/17/17 08:59 Last Admin: 08/02/17 09:53 Dose: 5,000 units Dextrose/Sodium Chloride (D5-0.45ns) 1,000 mls @ 50 mls/hr IV .Q20H [facility] Stop: 09/24/17 17:14 Last Infusion: 08/01/17 06:18 Dose: 50 mls/hr Vancomycin HCl 1 gm/ Dextrose 250 mls @ 165 mls/hr IV Q36H [facility] Stop: 09/24/17 20:59 Last Admin: 08/01/17 21:25 Dose: 165 mls/hr Meropenem 1 gm/ Dextrose 100 mls @ 100 mls/hr IV Q12H [facility] Stop: 09/30/17 14:59 Last Admin: 08/02/17 02:58 Dose: 100 mls/hr Insulin Aspart (Novolog) 0 units SUBQ Q6HR [facility] PRN Reason: Protocol Stop: 09/18/17 17:59 Last Admin: 08/02/17 06:07 Dose: Not Given Insulin Detemir (Levemir Insulin) 24 units SUBQ BID [facility] PRN Reason: Protocol Stop: 09/20/17 08:59 Last Admin: 08/02/17 09:53 Dose: 24 units Lactobacillus Rhamnosus (Culturelle 15b) 1 each PO DAILY [facility] Stop: 09/30/17 10:59 Last Admin: 08/02/17 09:51 Dose: 1 each Magnesium Hydroxide (Milk Of Magnesia) 30 ml GT HS PRN PRN Reason: Constipation Stop: 09/16/17 23:47 Metoclopramide HCl (Reglan) 10 mg GT Q8H [facility] Stop: 09/20/17 13:01 Last Admin: 08/02/17 06:06 Dose: 10 mg Miscellaneous (Vancomycin Iv Per Pharmacy) 1 ea MC PRN [facility] Stop: 09/16/17 23:44 Miscellaneous (Clinical Monitoring) 1 ea MC PRN PRN PRN Reason: RENAL DOSE ZOSYN Stop: 09/17/17 08:23 Miscellaneous (Probiotic Screen) 1 ea MC PRN PRN PRN Reason: PROTOCOL Stop: 09/17/17 10:14 Miscellaneous (Vte Chemical Prophylaxis Screen/ Admission) 1 ea MC PRN PRN PRN Reason: PROTOCOL Stop: 09/17/17 13:47 Morphine Sulfate (Morphine) 2 mg IVP Q4H PRN PRN Reason: Pain (Severe) Stop: 09/16/17 23:53 Last Admin: 07/24/17 23:27 Dose: 2 mg Ondansetron HCl (Zofran) 4 mg IV Q8H PRN PRN Reason: Nausea / Vomiting Stop: 09/16/17 23:54 Last Admin: 07/21/17 18:48 Dose: 4 mg Sodium Phosphate (Fleet Enema) 135 ml RC Q48H PRN PRN Reason: Constipation Stop: 09/16/17 23:47 Zinc Sulfate (Zinc Sulfate) 220 mg GT DAILY [facility] Stop: 09/17/17 08:59 Last Admin: 08/02/17 09:51 Dose: 220 mg General: weak, congested, demented, obtunded HEENT: NC/AT, PERRLA Neck: Supple, + trach Lungs: congested, rales, ronchi Cardiovascular: RRR, without murmur Abdomen: soft, non-tender, non-distended, +GT, positive bowel sound Extremities: excoriation, ulcers stage 3 Neurological: bedbound, spastic - Procedures Procedures: Procedures Procedure Code Date RESPIRATORY VENTILATION, GREATER THAN 96 CONSECUTIVE HOURS [id number] 07/18/17 Internal Medicine Assmt/Plan - Assessment Assessment: sepsis cdiff chronic respiratory failure VDRF leukocytosis hematuria-improved htn dm2 cad chf anemia tracheostomy status hypokalemia acute renal insufficiency elevated troponin mild protein calorie malnutrition acute uti - Plan Plan: contact isolation continue with ivabx renal follow up monitor h/h follow up labs in am vent support continue current plan of care Nutritional Asmnt/Malnutr-PDOC - Dietary Evaluation Malnutrition Findings (Please click <Entered> for more info): Nutritional Asmnt/Malnutrition Start: 07/19/17 17: 24 Text: Status: Complete Freq: Document 07/19/17 17:25 LCJOSE DE JESUSG (Rec: 07/19/17 17:43 LCHENG JAN-FN) Nutritional Asmnt/Malnutrition Patient General Information Nutritional Screening High Risk Consult Diagnosis Sepsis, UTI Pertinent Medical Hx/Surgical Hx HTN, DM, CAD, CHF, chronic resperatory failure, anemia, PEG/Gtube, tracheostomy Subjective Information Consult received for elevated BG. Pt seen lying in bed, on vent, non verbal comminication noted. Not able to obtain nutrition hx. Spoke with RN, no nutrition plan at this time . Current Diet Order/ Nutrition Support NPO Pertinent Medications Vitamin C, novolog, cultrelle, reglan, vancomycin, , piperacillin, Nacl 0.9%, Zinc Pertinent Labs 07/19 Na 132, K 5.3, Cl 97L, BUN 137, Cr 2.7, Glu 353, POC 324-394, A1C 6.2 Nutritional Hx/Data Height 5 ft 2 in Height (Calculated Centimeters) 157.5 Current Weight (lbs) 178 lb 3.2 oz Weight (Calculated Kilograms) 80.8 Weight (Calculated Grams) 07540.2 [place] Body Weight 110 % [place] Body Weight 162 Body Mass Index (BMI) 32.5 Weight Status Obese GI Symptoms GI Symptoms None Last BM none Usual diet at home Glucerna 1.5 60ml/hr x 20hr daily at [facility] Skin Integrity/Comment: decubitus ulceration to sacrum Estimated Nutritional Goals BEE in Kcals: Adj wt of IBW Calories/Kcals/Kg 30-35 Kcals Calculated Protein: Adj wt of IBW Protein g/k.2-1.5 Protein Calculated 69-87 Fluid: ml Nutritional Problem 2. Problem Problem increased nutrition needs ( calorie and protein) Etiology increased metabolic demand for healing Signs/Symptoms: sepsis 1. Problem Problem altered nutrition related lab values Etiology hx of DM, acute renal insufficiency Signs/Symptoms: BUN 137, Cr 2.7, Glu 353, POC 324-394, A1C 6.2 Malnutrition Alert Protein-Calorie Malnutrition N/A Is there a minimum of two criteria No selected? Query Text:Check all the applicable criteria. A minimum of two criteria are recommended for diagnosis of either severe or non-severe malnutrition. Intervention/Recommendation Comments 1. Monitor NPO status. 2. If enteral feeding needed, recommend to start Diabetisource AC at 30ml/hr continuous. Increased to goal rate of 60ml/hr continuous as tolerated. This will provide 1728kcal, 86g protein and 1179ml water, meeting 100% of nutritional needs. 3. Monitor wt, labs and skin integrity 4. F/U as high risk in 2-3 days, 07/21-07/22 Expected Outcomes/Goals Expected Outcomes/Goals 1. Pt to meet at least 75% of nutritional needs in 2-3 days 2. Wt stability, skin to remain intact, labs to improve .
--- NOTE | 2017-08-02 14:58 | Progress Notes ---
DATE: UROLOGY PROGRESS NOTE The patient is waiting to get the percutaneous nephrostomy after the order was placed yesterday. Meanwhile, she continues to have some altered level of consciousness as per the family. Therefore, an EEG is also being done. She has been switched to meropenem for antibiotics and since white count has improved today for the first time. PHYSICAL EXAMINATION: VITAL SIGNS: Temperature 97.8, heart rate 67, blood pressure 148/47, saturating 100% on FiO2 of 35 on the ventilator. ABDOMEN: Soft, nondistended, nontender. G-tube feedings tolerated. EXTREMITIES: Trace edema. Ocampo catheter, no blood. LABORATORY DATA: White count 15.2, hemoglobin 8.8. Sodium 130, potassium 5.4, BUN 45, creatinine 1.1. IMPRESSION: 1. Neurogenic bladder with the Ocampo. Continue catheter care. 2. Right hydronephrosis, awaiting percutaneous nephrostomy to rule out source of infection. 3. Altered level of consciousness, awaiting EEG. 4. History of multiple sclerosis and diabetes, relatively stable. 5. Dementia. 6. Congestive heart failure. 7. Coronary artery disease. No change. 8. Lastly, tracheostomy, ventilator, and G tube status, no change either. JOB# [id number]
--- NOTE | 2017-08-02 15:19 | General Progress Note ---
Subjective - Review of Systems Service Date: 08/02/17 Subjective: awake, comfortable, on vent Objective - Results Result Diagrams: 08/02/17 06:30 08/02/17 06:30 Recent Labs: Laboratory Last Values WBC 15.2 Th/cmm (4.8-10.8) H D 08/02/17 06:30 RBC 2.98 Mil/cmm (3.80-5.10) L 08/02/17 06:30 Hgb 8.8 gm/dL (12-16) L 08/02/17 06:30 Hct 25.8 % (41.0-60) L 08/02/17 06:30 MCV 86.7 fl (81-100) 08/02/17 06:30 MCH 29.4 pg (27.0-31.0) 08/02/17 06:30 MCHC Differential 33.9 pg (28.0-36.0) 08/02/17 06:30 RDW 14.9 % (11.5-20.0) 08/02/17 06:30 Plt Count 347 Th/cmm (150-400) 08/02/17 06:30 MPV 10.2 fl 08/02/17 06:30 Neutrophils % 76.5 % (40.0-80.0) 07/30/17 23:32 Band Neutrophils % 2 % (0-10) 08/02/17 06:30 Lymphocytes % 15.3 % (20.0-50.0) L 07/30/17 23:32 Monocytes % 6.3 % (2.0-10.0) 07/30/17 23:32 Eosinophils % 1.4 % (0.0-5.0) 07/30/17 23:32 Basophils % 0.5 % (0.0-2.0) 07/30/17 23:32 Neutrophils (Manual) 63 % (40-80) 08/02/17 06:30 Lymphocytes 29 % (20-50) 08/02/17 06:30 Monocytes 5 % (2-10) 08/02/17 06:30 Eosinophils 1 % (0-5) 08/02/17 06:30 Hypochromia 1+ 07/30/17 04:30 Platelet Estimate ADEQUATE (NORMAL) 07/30/17 04:30 Polychromasia 1+ 07/30/17 04:30 Smear Path Review YES 07/18/17 22:15 Eos Smear Source URINE 07/19/17 22:30 Eos Smear Total Cells NONE SEEN (NONE SEEN) 07/19/17 22:30 PT 10.4 SECONDS (9.5-11.5) 07/30/17 15:12 INR 1.00 (0.5-1.4) 07/30/17 15:12 PTT (Actin FS) 27.5 SECONDS (26.0-38.0) 07/30/17 15:12 Specimen Source Arterial 07/25/17 14:15 Sample Site RIGHT BRACHIAL 07/25/17 14:15 pH 7.48 (7.35-7.45) H 07/25/17 14:15 pCO2 33.0 mmHg (35.0-45.0) L 07/25/17 14:15 pO2 144.0 mmHg (80.0-100.0) H 07/25/17 14:15 HCO3 26.1 mEq/L (20.0-26.0) H 07/25/17 14:15 Base Excess 1.5 mEq/L (-3.0-3.0) 07/25/17 14:15 O2 Saturation 99.0 % (92.0-100.0) 07/25/17 14:15 Cricket Test Positive 07/25/17 14:15 Vent Rate 12 07/25/17 14:15 Inspired O2 35 07/25/17 14:15 Tidal Volume 500 07/25/17 14:15 PEEP 5 07/25/17 14:15 Pressure (ins/psv/peep) N/A 07/25/17 14:15 Critical Value HSTEHNO 07/25/17 14:15 Sodium 130 mEq/L (136-145) L 08/02/17 06:30 Potassium 5.4 mEq/L (3.5-5.1) H 08/02/17 06:30 Chloride 102 mEq/L (98-107) 08/02/17 06:30 Carbon Dioxide 22.5 mEq/L (21.0-31.0) 08/02/17 06:30 Anion Gap 10.9 (7.0-16.0) 08/02/17 06:30 BUN 45 mg/dL (7-25) H 08/02/17 06:30 Creatinine 1.1 mg/dL (0.6-1.2) 08/02/17 06:30 Est GFR ( Amer) > 60.0 ml/min (>90) 08/02/17 06:30 Est GFR (Non-Af Amer) 53.5 ml/min 08/02/17 06:30 BUN/Creatinine Ratio 40.9 08/02/17 06:30 Glucose 101 mg/dL (70-105) 08/02/17 06:30 POC Glucose 103 MG/DL (70 - 105) 08/02/17 12:09 Hemoglobin A1c % 6.2 % (4.0-6.0) H 07/18/17 23:30 Plasma/Ser Osmolality 344 mOsmol/kg (280-301) H 07/19/17 23:30 Whole Bld Lactic Acid 0.61 mmol/L (0.60-1.99) 07/20/17 04:10 Uric Acid 9.5 mg/dL (2.3-6.6) H 07/20/17 04:10 Calcium 8.9 mg/dL (8.6-10.3) 08/02/17 06:30 Phosphorus 4.5 mg/dL (2.5-5.0) 07/20/17 04:10 Magnesium 1.8 mg/dL (1.9-2.7) L 07/28/17 05:00 Iron 36 ug/dL (27-139) 07/30/17 04:30 TIBC 160 ug/dL (250-450) L 07/30/17 04:30 Iron Saturation 23 % (15-55) 07/30/17 04:30 Unsaturated IBC 124 ug/dL (118-369) 07/30/17 04:30 Total Bilirubin 0.3 mg/dL (0.3-1.0) 08/01/17 05:55 AST 9 U/L (13-39) L 08/01/17 05:55 ALT 11 U/L (7-52) 08/01/17 05:55 Alkaline Phosphatase 111 U/L (34-104) H 08/01/17 05:55 Ammonia 50 umol/L (16-53) 07/28/17 06:00 Creatine Kinase 26 U/L (30-223) L 07/18/17 22:15 Troponin I 0.27 ng/mL (0.01-0.05) H* 07/18/17 22:15 B-Natriuretic Peptide 309.0 pg/mL (5.0-100.0) H 08/02/17 06:30 Total Protein 6.4 gm/dL (6.0-8.3) 08/01/17 05:55 Albumin 2.9 gm/dL (3.7-5.3) L 08/01/17 05:55 Globulin 3.5 gm/dL 08/01/17 05:55 Albumin/Globulin Ratio 0.8 (1.0-1.8) L 08/01/17 05:55 Vitamin B12 1119 pg/mL (232-1245) 07/23/17 04:33 Folic Acid >20.0 ng/mL (>3.0) 07/23/17 04:33 TSH 2.30 uIU/ml (0.34-5.60) 07/19/17 04:15 Urine Source [place] 07/18/17 21:30 Urine Color RED 07/18/17 21:30 Urine Clarity CLOUDY (CLEAR) H 07/18/17 21:30 Urine pH 7.5 (4.6 - 8.0) 07/18/17 21:30 Ur Specific [place] 1.025 (1.005-1.030) 07/18/17 21:30 Urine Protein >=300 mg/dL (NEGATIVE) 07/18/17 21:30 Urine Glucose (UA) NEGATIVE mg/dL (NEGATIVE) 07/18/17 21:30 Urine Ketones NEGATIVE mg/dL (NEGATIVE) 07/18/17 21:30 Urine Blood LARGE (NEGATIVE) H 07/18/17 21:30 Urine Nitrate NEGATIVE (NEGATIVE) 07/18/17 21:30 Urine Bilirubin NEGATIVE (NEGATIVE) 07/18/17 21:30 Urine Urobilinogen 0.2 E.U./dL (0.2 - 1.0) 07/18/17 21:30 Ur Leukocyte Esterase SMALL (NEGATIVE) H 07/18/17 21:30 Urine RBC 50-100 /hpf (0-5) H 07/18/17 21:30 Urine WBC 6-10 /hpf (0-5) H 07/18/17 21:30 Ur Epithelial Cells FEW /lpf (FEW) 07/18/17 21:30 Urine Bacteria MANY /hpf (NONE SEEN) 07/18/17 21:30 Ur Random Sodium 28 mmol/L 07/19/17 22:30 Urine Creatinine 26.3 mg/dl (Not Estab.) 07/19/17 22:30 Urine Microalbumin 2398.5 ug/mL (Not Estab.) 07/19/17 22:30 Microalb/Creat Ratio 9119.8 07/19/17 22:30 Stool Occult Blood NEGATIVE (NEGATIVE) 07/24/17 03:37 Vancomycin Trough 23.0 ug/mL (10-20) H 07/29/17 20:00 Random Vancomycin 31.7 ug/mL (5.0-40.0) 08/01/17 05:55 Blood Type O NEGATIVE 07/20/17 08:15 Antibody Screen NEGATIVE 07/20/17 08:15 - Physical Exam Vitals and I&O: Vital Signs Temp 98.2 F 08/02/17 15:00 Pulse 69 08/02/17 15:00 Resp 17 08/02/17 15:00 BP 148/41 08/02/17 15:00 Pulse Ox 100 08/02/17 15:00 Intake & Output 08/01/17 08/02/17 08/02/17 18:59 06:59 18:59 Intake Total 1490 840 Output Total 1150 850 Balance 340 -10 Weight (lbs) 76.742 kg 85.389 kg Intake: Intake, IV Amount 100 Meropenem 1 gm In 100 Dextrose 5% 100 ml @ 100 mls/hr IV Q12H [facility] Rx#: [id number] Tube Feeding 840 840 Other 550 Output: Urine 950 850 Stool 200 Other: # Bowel Movements 2 Stool Characteristics Soft Liquid Soft Brown Brown Active Medications: Current Medications Acetaminophen (Tylenol 650mg/20.3ml Suspension) 650 mg GT Q4H PRN PRN Reason: Pain or Fever >101 Stop: 09/16/17 23:47 Last Admin: 07/22/17 00:35 Dose: 650 mg Albuterol/Ipratropium (Duoneb Neb) 3 ml HHN Q6HRT ISABELLE Stop: 09/17/17 12:59 Last Admin: 08/02/17 13:43 Dose: 3 ml Albuterol/Ipratropium (Duoneb Neb) 3 ml HHN Q2HR PRN PRN Reason: Shortness of Breath Stop: 09/16/17 23:47 Ascorbic Acid (Vitamin C) 500 mg GT DAILY ISABELLE Stop: 09/17/17 08:59 Last Admin: 08/02/17 09:51 Dose: 500 mg Bisacodyl (Dulcolax 10 Mg Supp) 10 mg RC DAILY PRN PRN Reason: constip Stop: 09/16/17 23:47 Calamine/Phenol (Calmoseptine) 1 appl TP QID PRN PRN Reason: Skin Irritation Stop: 09/24/17 09:35 Calamine/Phenol (Calmoseptine) 1 appl TP QID ISABELLE Stop: 09/24/17 12:59 Last Admin: 08/02/17 09:53 Dose: 1 appl Carvedilol (Coreg) 6.25 mg GT BID ISABELLE Stop: 09/17/17 08:59 Last Admin: 08/02/17 09:51 Dose: 6.25 mg Clio Oil/Bel[place]ian Balsam/Trypsin (Venelex) 1 appl TP DAILY ISABELLE Stop: 09/25/17 08:59 Last Admin: 08/02/17 09:52 Dose: 1 appl Chlorhexidine Gluconate (Peridex) 15 ml MM 0800,2000 ISABELLE Stop: 09/17/17 07:59 Last Admin: 08/02/17 08:35 Dose: 15 ml Docusate Sodium (Colace) 100 mg GT BID PRN PRN Reason: Constipation Famotidine (Pepcid) 20 mg GT Q12H [facility] Stop: 09/16/17 23:44 Last Admin: 08/02/17 12:05 Dose: 20 mg Guaifenesin (Robitussin) 200 mg PO Q4HR PRN PRN Reason: Cough or Congestion Stop: 09/16/17 23:54 Heparin Sodium (Porcine) (Heparin) 5,000 units SUBQ Q12HR ISABELLE Stop: 09/17/17 08:59 Last Admin: 08/02/17 09:53 Dose: 5,000 units Dextrose/Sodium Chloride (D5-0.45ns) 1,000 mls @ 50 mls/hr IV .Q20H ISABELLE Stop: 09/24/17 17:14 Last Infusion: 08/01/17 06:18 Dose: 50 mls/hr Vancomycin HCl 1 gm/ Dextrose 250 mls @ 165 mls/hr IV Q36H ISABELLE Stop: 09/24/17 20:59 Last Admin: 08/01/17 21:25 Dose: 165 mls/hr Meropenem 1 gm/ Dextrose 100 mls @ 100 mls/hr IV Q12H [facility] Stop: 09/30/17 14:59 Last Admin: 08/02/17 02:58 Dose: 100 mls/hr Insulin Aspart (Novolog) 0 units SUBQ Q6HR ISABELLE PRN Reason: Protocol Stop: 09/18/17 17:59 Last Admin: 08/02/17 12:10 Dose: Not Given Insulin Detemir (Levemir Insulin) 24 units SUBQ BID ISABELLE PRN Reason: Protocol Stop: 09/20/17 08:59 Last Admin: 08/02/17 09:53 Dose: 24 units Lactobacillus Rhamnosus (Culturelle 15b) 1 each PO DAILY [facility] Stop: 09/30/17 10:59 Last Admin: 08/02/17 09:51 Dose: 1 each Magnesium Hydroxide (Milk Of Magnesia) 30 ml GT HS PRN PRN Reason: Constipation Stop: 09/16/17 23:47 Metoclopramide HCl (Reglan) 10 mg GT Q8H [facility] Stop: 09/20/17 13:01 Last Admin: 08/02/17 12:05 Dose: 10 mg Miscellaneous (Vancomycin Iv Per Pharmacy) 1 ea MC PRN [facility] Stop: 09/16/17 23:44 Miscellaneous (Clinical Monitoring) 1 ea MC PRN PRN PRN Reason: RENAL DOSE ZOSYN Stop: 09/17/17 08:23 Miscellaneous (Probiotic Screen) 1 ea MC PRN PRN PRN Reason: PROTOCOL Stop: 09/17/17 10:14 Miscellaneous (Vte Chemical Prophylaxis Screen/ Admission) 1 ea MC PRN PRN PRN Reason: PROTOCOL Stop: 09/17/17 13:47 Morphine Sulfate (Morphine) 2 mg IVP Q4H PRN PRN Reason: Pain (Severe) Stop: 09/16/17 23:53 Last Admin: 07/24/17 23:27 Dose: 2 mg Ondansetron HCl (Zofran) 4 mg IV Q8H PRN PRN Reason: Nausea / Vomiting Stop: 09/16/17 23:54 Last Admin: 07/21/17 18:48 Dose: 4 mg Sodium Phosphate (Fleet Enema) 135 ml RC Q48H PRN PRN Reason: Constipation Stop: 09/16/17 23:47 Zinc Sulfate (Zinc Sulfate) 220 mg GT DAILY [facility] Stop: 09/17/17 08:59 Last Admin: 08/02/17 09:51 Dose: 220 mg General: Alert, No acute distress HEENT: Atraumatic, Mucous membr. moist/pink Neck: Supple, +2 carotid pulse wo bruit Cardiovascular: Regular rate, Normal S1, Normal S2 Lungs: Clear to auscultation Abdomen: Soft, Distended Extremities: no Edema Neurological: Sensation intact Skin: no Rash Psych/Mental Status: Mood NL - Procedures Procedures: Procedures Procedure Code Date RESPIRATORY VENTILATION, GREATER THAN 96 CONSECUTIVE HOURS [id number] 07/18/17 Assessment/Plan - Assessment Assessment: ADELA Right Hydronephrosis, hydroureter w/ partial obstruction since has good UOP, improvement Kidney fnc Gross hematuria 2nd to trauma better Sepsis 2nd to Cx UTI RFVD Anemia CD Ess Htn Type 2 DM Met Enceph C. diff colitis Hypokalemia Hypernatremia - Plan Plan: Lab - Result Diagrams 07/20/17 04:10 07/20/17 04:10 Current Medications Acetaminophen (Tylenol 650mg/20.3ml Suspension) 650 mg GT Q4H PRN PRN Reason: Pain or Fever >101 Stop: 09/16/17 23:47 Albuterol/Ipratropium (Duoneb Neb) 3 ml HHN Q6HRT [facility] Stop: 09/17/17 12:59 Last Admin: 07/20/17 13:39 Dose: 3 ml Albuterol/Ipratropium (Duoneb Neb) 3 ml HHN Q2HR PRN PRN Reason: Shortness of Breath Stop: 09/16/17 23:47 Ascorbic Acid (Vitamin C) 500 mg GT DAILY [facility] Stop: 09/17/17 08:59 Last Admin: 07/20/17 09:07 Dose: 500 mg Bisacodyl (Dulcolax 10 Mg Supp) 10 mg RC DAILY PRN PRN Reason: constip Stop: 09/16/17 23:47 Carvedilol (Coreg) 3.125 mg GT BID [facility] Stop: 09/17/17 08:59 Last Admin: 07/20/17 16:43 Dose: 3.125 mg Chlorhexidine Gluconate (Peridex) 15 ml MM 08,1999 [facility] Stop: 09/17/17 07:59 Last Admin: 07/20/17 07:56 Dose: 15 ml Docusate Sodium (Colace) 100 mg GT BID PRN PRN Reason: Constipation Famotidine (Pepcid) 20 mg GT Q12H [facility] Stop: 09/16/17 23:44 Last Admin: 07/20/17 11:56 Dose: 20 mg Guaifenesin (Robitussin) 200 mg PO Q4HR PRN PRN Reason: Cough or Congestion Stop: 09/16/17 23:54 Heparin Sodium (Porcine) (Heparin) 5,000 units SUBQ Q12HR [facility] Stop: 09/17/17 08:59 Last Admin: 07/20/17 09:09 Dose: 5,000 units Piperacillin Sod/Tazobactam (Sod 2.25 gm/ Sodium Chloride) 100 mls @ 100 mls/ hr IV Q8H [facility] Stop: 09/17/17 08:59 Last Admin: 07/20/17 16:43 Dose: 100 mls/hr Vancomycin HCl 1 gm/ Dextrose 250 mls @ 165 mls/hr IV Q36H [facility] Stop: 09/18/17 01:59 Last Infusion: 07/20/17 04:00 Dose: Infused Sodium Chloride (Nacl 0.9%) 1,000 mls @ 100 mls/hr IV .Q10H [facility] Stop: 09/16/17 23:44 Last Admin: 07/20/17 02:00 Dose: 100 mls/hr Insulin Aspart (Novolog) 0 units SUBQ Q6HR ISABELLE PRN Reason: Protocol Stop: 09/18/17 17:59 Insulin Detemir (Levemir Insulin) 18 units SUBQ BID ISABELLE PRN Reason: Protocol Stop: 09/18/17 08:59 Last Admin: 07/20/17 16:44 Dose: 18 units Lactobacillus Rhamnosus (Culturelle) 1 each PO DAILY [facility] Stop: 09/18/17 08:59 Last Admin: 07/20/17 09:07 Dose: 1 each Magnesium Hydroxide (Milk Of Magnesia) 30 ml GT HS PRN PRN Reason: Constipation Stop: 09/16/17 23:47 Metoclopramide HCl (Reglan) 5 mg GT Q8H [facility] Stop: 09/16/17 23:44 Last Admin: 07/20/17 15:45 Dose: Not Given Miscellaneous (Vancomycin Iv Per Pharmacy) 1 ea MC PRN ISABELLE Stop: 09/16/17 23:44 Miscellaneous (Clinical Monitoring) 1 ea MC PRN PRN PRN Reason: RENAL DOSE ZOSYN Stop: 09/17/17 08:23 Miscellaneous (Probiotic Screen) 1 ea MC PRN PRN PRN Reason: PROTOCOL Stop: 09/17/17 10:14 Miscellaneous (Vte Chemical Prophylaxis Screen/ Admission) 1 ea MC PRN PRN PRN Reason: PROTOCOL Stop: 09/17/17 13:47 Morphine Sulfate (Morphine) 2 mg IVP Q4H PRN PRN Reason: Pain (Severe) Stop: 09/16/17 23:53 Ondansetron HCl (Zofran) 4 mg IV Q8H PRN PRN Reason: Nausea / Vomiting Stop: 09/16/17 23:54 Sodium Phosphate (Fleet Enema) 135 ml RC Q48H PRN PRN Reason: Constipation Stop: 09/16/17 23:47 Vancomycin HCl (Vancomycin Oral) 250 mg GT Q6HR ISABELLE Stop: 09/18/17 17:59 Last Admin: 07/20/17 17:54 Dose: 250 mg Zinc Sulfate (Zinc Sulfate) 220 mg GT DAILY ISABELLE Stop: 09/17/17 08:59 Last Admin: 07/20/17 09:07 Dose: 220 mg Lab - Result Diagrams 08/02/17 06:30 08/02/17 06:30 BUN up to 45 UOP still adequate Na down to 130 K elevation iatrogenic no further hematuria CT pelvis revealed right hydronephrosis/ureter Increase IVF since now in negative balance w/ clear CXR f/u elelctrolytes, cbc Nutritional Asmnt/Malnutr-PDOC - Dietary Evaluation Malnutrition Findings (Please click <Entered> for more info): Nutritional Asmnt/Malnutrition Start: 07/19/17 17: 24 Text: Status: Complete Freq: Document 07/19/17 17:25 LCJOSE DE JESUSG (Rec: 07/19/17 17:43 JEIMY [id number]) Nutritional Asmnt/Malnutrition Patient General Information Nutritional Screening High Risk Consult Diagnosis Sepsis, UTI Pertinent Medical Hx/Surgical Hx HTN, DM, CAD, CHF, chronic resperatory failure, anemia, PEG/Gtube, tracheostomy Subjective Information Consult received for elevated BG. Pt seen lying in bed, on vent, non verbal comminication noted. Not able to obtain nutrition hx. Spoke with RN, no nutrition plan at this time . Current Diet Order/ Nutrition Support NPO Pertinent Medications Vitamin C, novolog, cultrelle, reglan, vancomycin, , piperacillin, Nacl 0.9%, Zinc Pertinent Labs 07/19 Na 132, K 5.3, Cl 97L, BUN 137, Cr 2.7, Glu 353, POC 324-394, A1C 6.2 Nutritional Hx/Data Height 1.57 m Height (Calculated Centimeters) 157.5 Current Weight (lbs) 80.83 kg Weight (Calculated Kilograms) 80.8 Weight (Calculated Grams) 13735.2 [place] Body Weight 110 % [place] Body Weight 162 Body Mass Index (BMI) 32.5 Weight Status Obese GI Symptoms GI Symptoms None Last BM none Usual diet at home Glucerna 1.5 60ml/hr x 20hr daily at [facility] Skin Integrity/Comment: decubitus ulceration to sacrum Estimated Nutritional Goals BEE in Kcals: Adj wt of IBW Calories/Kcals/Kg 30-35 Kcals Calculated Protein: Adj wt of IBW Protein g/k.2-1.5 Protein Calculated 69-87 Fluid: ml Nutritional Problem 2. Problem Problem increased nutrition needs ( calorie and protein) Etiology increased metabolic demand for healing Signs/Symptoms: sepsis 1. Problem Problem altered nutrition related lab values Etiology hx of DM, acute renal insufficiency Signs/Symptoms: BUN 137, Cr 2.7, Glu 353, POC 324-394, A1C 6.2 Malnutrition Alert Protein-Calorie Malnutrition N/A Is there a minimum of two criteria No selected? Query Text:Check all the applicable criteria. A minimum of two criteria are recommended for diagnosis of either severe or non-severe malnutrition. Intervention/Recommendation Comments 1. Monitor NPO status. 2. If enteral feeding needed, recommend to start Diabetisource AC at 30ml/hr continuous. Increased to goal rate of 60ml/hr continuous as tolerated. This will provide 1728kcal, 86g protein and 1179ml water, meeting 100% of nutritional needs. 3. Monitor wt, labs and skin integrity 4. F/U as high risk in 2-3 days, 07/21-07/22 Expected Outcomes/Goals Expected Outcomes/Goals 1. Pt to meet at least 75% of nutritional needs in 2-3 days 2. Wt stability, skin to remain intact, labs to improve .
[2017-08-02] MEDS: Sodium Chloride 0.9% 1,000 ML IV SCH (15:30)
[2017-08-03] MEDS ORDERED: Albuterol/Ipratropium Neb 3 ML AERS HHN ONE (00:44)
[2017-08-03] MEDS: INSULIN ASPART, RECOMBINANT 100 UNITS/ML SUBQ SCH ×4 (00:55→17:29)
[2017-08-03] MEDS: Albuterol/Ipratropium Neb 3 ML AERS HHN SCH ×5 (01:26→19:51)
[2017-08-03 02:17] LABS: FOLIC ACID >20.0 ng/mL (>3.0)
[2017-08-03 05:42] LABS: % BASOPHILS 0.6 % (0.0-2.0); % EOSINOPHILS 2.4 % (0.0-5.0); % LYMPHOCYTES 19.2 % (20.0-50.0); % MONOCYTES 5.1 % (2.0-10.0); % NEUTROPHILS 72.7 % (40.0-80.0); BASOPHILE ABSOLUTE 0.1 Th/cumm (0-0.2); EOSINOPHILE ABSOLUTE 0.3 Th/cmm (0.1-0.4); HEMATOCRIT 25.2 % (41.0-60); HEMOGLOBIN 8.3 gm/dL (12-16); LYMPHOCYTE ABSOLUTE 2.5 Th/cmm (1.5-3.0); MEAN CELL VOLUME 85.6 fl (81-100); MEAN CORPUSCULAR HEMOGLOBIN 28.2 pg (27.0-31.0); MEAN PLATELET VOLUME 10.7 fl; MONOCYTE ABSOLUTE 0.7 Th/cmm (0.3-1.0); NEUTROPHILE ABSOLUTE 9.2 Th/cmm (1.8-8.0); PLATELET COUNT 344 Th/cmm (150-400); RED BLOOD COUNT 2.94 Mil/cmm (3.80-5.10); RED CELL DISTRIBUTION WIDTH 14.5 % (11.5-20.0)
[2017-08-03 05:43] LABS: WHITE BLOOD COUNT 12.8 Th/cmm (4.8-10.8)
[2017-08-03 05:56] LABS: CALCIUM SERUM 8.7 mg/dL (8.6-10.3); CARBON DIOXIDE 24.3 mEq/L (21.0-31.0); CREATININE - SERUM 1.2 mg/dL (0.6-1.2); GFR AFRICAN-AMERICAN 58.5 ml/min (>90); GFR NON AFRICAN-AMERICAN 48.4 ml/min; POTASSIUM SERUM 4.3 mEq/L (3.5-5.1)
[2017-08-03] MEDS: Sodium Chloride 0.9% 1,000 ML IV SCH ×2 (06:00→20:51)
[2017-08-03] MEDS: Lactobacillus Rhamnosus GG 15 Billion CFU CAP.SPRINK PO SCH (08:27)
[2017-08-03] MEDS: Chlorhexidine Gluconate 0.12% 15mL Mouthwash MM SCH ×2 (08:27→19:55)
[2017-08-03] MEDS: Insulin Detemir 100 units/mL 10mL Vial SUBQ SCH ×2 (08:28→17:24)
[2017-08-03] MEDS: Venelex 60gm Tube TP SCH (08:30)
[2017-08-03] MEDS: Menthol/Zinc Oxide Oint 113gm Tube TP SCH ×4 (08:31→21:32)
[2017-08-03] MEDS: Multivitamin w/ Minerals Tab GT SCH (08:32)
--- NOTE | 2017-08-03 10:01 | Internal Medicine Prog Note ---
Internal Medicine Subjective - Subjective Service Date: 08/03/17 Patient seen and examined:: with staff Patient is:: awake, non-verbal, non-interactive, in bed, stares blankly Patient Complaints of:: congestion, bloated Per staff patient has:: tolerating meds Internal Medicine Objective - Results Result Diagrams: 08/03/17 05:00 08/03/17 05:00 Recent Labs: Laboratory Last Values WBC 12.8 Th/cmm (4.8-10.8) H 08/03/17 05:00 RBC 2.94 Mil/cmm (3.80-5.10) L 08/03/17 05:00 Hgb 8.3 gm/dL (12-16) L 08/03/17 05:00 Hct 25.2 % (41.0-60) L 08/03/17 05:00 MCV 85.6 fl (81-100) 08/03/17 05:00 MCH 28.2 pg (27.0-31.0) 08/03/17 05:00 MCHC Differential 33.0 pg (28.0-36.0) 08/03/17 05:00 RDW 14.5 % (11.5-20.0) 08/03/17 05:00 Plt Count 344 Th/cmm (150-400) 08/03/17 05:00 MPV 10.7 fl 08/03/17 05:00 Neutrophils % 72.7 % (40.0-80.0) 08/03/17 05:00 Band Neutrophils % 2 % (0-10) 08/02/17 06:30 Lymphocytes % 19.2 % (20.0-50.0) L 08/03/17 05:00 Monocytes % 5.1 % (2.0-10.0) 08/03/17 05:00 Eosinophils % 2.4 % (0.0-5.0) 08/03/17 05:00 Basophils % 0.6 % (0.0-2.0) 08/03/17 05:00 Neutrophils (Manual) 63 % (40-80) 08/02/17 06:30 Lymphocytes 29 % (20-50) 08/02/17 06:30 Monocytes 5 % (2-10) 08/02/17 06:30 Eosinophils 1 % (0-5) 08/02/17 06:30 Hypochromia 1+ 07/30/17 04:30 Platelet Estimate ADEQUATE (NORMAL) 07/30/17 04:30 Polychromasia 1+ 07/30/17 04:30 Smear Path Review YES 07/18/17 22:15 Eos Smear Source URINE 07/19/17 22:30 Eos Smear Total Cells NONE SEEN (NONE SEEN) 07/19/17 22:30 PT 10.4 SECONDS (9.5-11.5) 07/30/17 15:12 INR 1.00 (0.5-1.4) 07/30/17 15:12 PTT (Actin FS) 27.5 SECONDS (26.0-38.0) 07/30/17 15:12 Specimen Source Arterial 07/25/17 14:15 Sample Site RIGHT BRACHIAL 07/25/17 14:15 pH 7.48 (7.35-7.45) H 07/25/17 14:15 pCO2 33.0 mmHg (35.0-45.0) L 07/25/17 14:15 pO2 144.0 mmHg (80.0-100.0) H 07/25/17 14:15 HCO3 26.1 mEq/L (20.0-26.0) H 07/25/17 14:15 Base Excess 1.5 mEq/L (-3.0-3.0) 07/25/17 14:15 O2 Saturation 99.0 % (92.0-100.0) 07/25/17 14:15 Cricket Test Positive 07/25/17 14:15 Vent Rate 12 07/25/17 14:15 Inspired O2 35 07/25/17 14:15 Tidal Volume 500 07/25/17 14:15 PEEP 5 07/25/17 14:15 Pressure (ins/psv/peep) N/A 07/25/17 14:15 Critical Value HSTEHNO 07/25/17 14:15 Sodium 133 mEq/L (136-145) L 08/03/17 05:00 Potassium 4.3 mEq/L (3.5-5.1) 08/03/17 05:00 Chloride 104 mEq/L (98-107) 08/03/17 05:00 Carbon Dioxide 24.3 mEq/L (21.0-31.0) 08/03/17 05:00 Anion Gap 9.0 (7.0-16.0) 08/03/17 05:00 BUN 47 mg/dL (7-25) H 08/03/17 05:00 Creatinine 1.2 mg/dL (0.6-1.2) 08/03/17 05:00 Est GFR ( Amer) 58.5 ml/min (>90) 08/03/17 05:00 Est GFR (Non-Af Amer) 48.4 ml/min 08/03/17 05:00 BUN/Creatinine Ratio 39.2 08/03/17 05:00 Glucose 116 mg/dL (70-105) H 08/03/17 05:00 POC Glucose 103 MG/DL (70 - 105) 08/03/17 04:58 Hemoglobin A1c % 6.2 % (4.0-6.0) H 07/18/17 23:30 Plasma/Ser Osmolality 344 mOsmol/kg (280-301) H 07/19/17 23:30 Whole Bld Lactic Acid 0.61 mmol/L (0.60-1.99) 07/20/17 04:10 Uric Acid 9.5 mg/dL (2.3-6.6) H 07/20/17 04:10 Calcium 8.7 mg/dL (8.6-10.3) 08/03/17 05:00 Phosphorus 4.5 mg/dL (2.5-5.0) 07/20/17 04:10 Magnesium 1.8 mg/dL (1.9-2.7) L 07/28/17 05:00 Iron 36 ug/dL (27-139) 07/30/17 04:30 TIBC 160 ug/dL (250-450) L 07/30/17 04:30 Iron Saturation 23 % (15-55) 07/30/17 04:30 Unsaturated IBC 124 ug/dL (118-369) 07/30/17 04:30 Total Bilirubin 0.3 mg/dL (0.3-1.0) 08/01/17 05:55 AST 9 U/L (13-39) L 08/01/17 05:55 ALT 11 U/L (7-52) 08/01/17 05:55 Alkaline Phosphatase 111 U/L (34-104) H 08/01/17 05:55 Ammonia 50 umol/L (16-53) 07/28/17 06:00 Creatine Kinase 26 U/L (30-223) L 07/18/17 22:15 Troponin I 0.27 ng/mL (0.01-0.05) H* 07/18/17 22:15 B-Natriuretic Peptide 309.0 pg/mL (5.0-100.0) H 08/02/17 06:30 Total Protein 6.4 gm/dL (6.0-8.3) 08/01/17 05:55 Albumin 2.9 gm/dL (3.7-5.3) L 08/01/17 05:55 Globulin 3.5 gm/dL 08/01/17 05:55 Albumin/Globulin Ratio 0.8 (1.0-1.8) L 08/01/17 05:55 Vitamin B12 >1999 pg/mL (232-1245) H 07/30/17 04:30 Folic Acid >20.0 ng/mL (>3.0) 07/30/17 04:30 TSH 2.30 uIU/ml (0.34-5.60) 07/19/17 04:15 Urine Source [place] 07/18/17 21:30 Urine Color RED 07/18/17 21:30 Urine Clarity CLOUDY (CLEAR) H 07/18/17 21:30 Urine pH 7.5 (4.6 - 8.0) 07/18/17 21:30 Ur Specific [place] 1.025 (1.005-1.030) 07/18/17 21:30 Urine Protein >=300 mg/dL (NEGATIVE) 07/18/17 21:30 Urine Glucose (UA) NEGATIVE mg/dL (NEGATIVE) 07/18/17 21:30 Urine Ketones NEGATIVE mg/dL (NEGATIVE) 07/18/17 21:30 Urine Blood LARGE (NEGATIVE) H 07/18/17 21:30 Urine Nitrate NEGATIVE (NEGATIVE) 07/18/17 21:30 Urine Bilirubin NEGATIVE (NEGATIVE) 07/18/17 21:30 Urine Urobilinogen 0.2 E.U./dL (0.2 - 1.0) 07/18/17 21:30 Ur Leukocyte Esterase SMALL (NEGATIVE) H 07/18/17 21:30 Urine RBC 50-100 /hpf (0-5) H 07/18/17 21:30 Urine WBC 6-10 /hpf (0-5) H 07/18/17 21:30 Ur Epithelial Cells FEW /lpf (FEW) 07/18/17 21:30 Urine Bacteria MANY /hpf (NONE SEEN) 07/18/17 21:30 Ur Random Sodium 28 mmol/L 07/19/17 22:30 Urine Creatinine 26.3 mg/dl (Not Estab.) 07/19/17 22:30 Urine Microalbumin 2398.5 ug/mL (Not Estab.) 07/19/17 22:30 Microalb/Creat Ratio 9119.8 07/19/17 22:30 Stool Occult Blood NEGATIVE (NEGATIVE) 07/24/17 03:37 Vancomycin Trough 30.5 ug/mL (10-20) H 08/03/17 08:08 Random Vancomycin 31.7 ug/mL (5.0-40.0) 08/01/17 05:55 Blood Type O NEGATIVE 07/20/17 08:15 Antibody Screen NEGATIVE 07/20/17 08:15 - Physical Exam Vitals and I&O: Vital Signs Temp 97.7 F 08/03/17 08:00 Pulse 76 08/03/17 08:00 Resp 18 08/03/17 08:00 BP 151/58 08/03/17 08:00 Pulse Ox 100 08/03/17 08:00 Intake & Output 08/02/17 08/03/17 08/03/17 18:59 06:59 18:59 Intake Total 940 2090 Output Total 2500 2550 Balance -1560 -460 Weight (lbs) 188 lb 4 oz 188 lb 3 oz Intake: Intake, IV Amount 100 1100 Meropenem 1 gm In 100 100 Dextrose 5% 100 ml @ 100 mls/hr IV Q12H [facility] Rx#: [id number] Sodium Chloride 0.9% 1, 1000 000 ml @ 75 mls/hr IV . [id number] [facility] Rx#:[id number] Oral 0 Tube Feeding 840 840 Other 150 Output: Urine 2400 1550 Stool 100 1000 Other: Stool Characteristics Soft Liquid Brown Brown Active Medications: Current Medications Acetaminophen (Tylenol 650mg/20.3ml Suspension) 650 mg GT Q4H PRN PRN Reason: Pain or Fever >101 Stop: 09/16/17 23:47 Last Admin: 07/22/17 00:35 Dose: 650 mg Albuterol/Ipratropium (Duoneb Neb) 3 ml HHN Q6HRT [facility] Stop: 09/17/17 12:59 Last Admin: 08/03/17 07:34 Dose: 3 ml Albuterol/Ipratropium (Duoneb Neb) 3 ml HHN Q2HR PRN PRN Reason: Shortness of Breath Stop: 09/16/17 23:47 Ascorbic Acid (Vitamin C) 500 mg GT DAILY [facility] Stop: 09/17/17 08:59 Last Admin: 08/03/17 08:27 Dose: 500 mg Bisacodyl (Dulcolax 10 Mg Supp) 10 mg RC DAILY PRN PRN Reason: constip Stop: 09/16/17 23:47 Calamine/Phenol (Calmoseptine) 1 appl TP QID PRN PRN Reason: Skin Irritation Stop: 09/24/17 09:35 Calamine/Phenol (Calmoseptine) 1 appl TP QID [facility] Stop: 09/24/17 12:59 Last Admin: 08/03/17 08:31 Dose: 1 appl Carvedilol (Coreg) 6.25 mg GT BID [facility] Stop: 09/17/17 08:59 [place] Oil/[place] Balsam/Trypsin (Venelex) 1 appl TP DAILY [facility] Stop: 09/25/17 08:59 Last Admin: 08/03/17 08:30 Dose: 1 appl Chlorhexidine Gluconate (Peridex) 15 ml MM 0800,2000 [facility] Stop: 09/17/17 07:59 Last Admin: 08/03/17 08:27 Dose: 15 ml Docusate Sodium (Colace) 100 mg GT BID PRN PRN Reason: Constipation Famotidine (Pepcid) 20 mg GT Q12H [facility] Stop: 09/16/17 23:44 Last Admin: 08/02/17 23:40 Dose: 20 mg Guaifenesin (Robitussin) 200 mg PO Q4HR PRN PRN Reason: Cough or Congestion Stop: 09/16/17 23:54 Heparin Sodium (Porcine) (Heparin) 5,000 units SUBQ Q12HR [facility] Stop: 09/17/17 08:59 Last Admin: 08/03/17 08:28 Dose: 5,000 units Meropenem 1 gm/ Dextrose 100 mls @ 100 mls/hr IV Q12H [facility] Stop: 09/30/17 14:59 Last Infusion: 08/03/17 04:30 Dose: Infused Sodium Chloride (Nacl 0.9%) 1,000 mls @ 75 mls/hr IV .[id number] [facility] Stop: 10/01/17 15:29 Last Admin: 08/03/17 06:00 Dose: 75 mls/hr Insulin Aspart (Novolog) 0 units SUBQ Q6HR [facility] PRN Reason: Protocol Stop: 09/18/17 17:59 Last Admin: 08/03/17 05:32 Dose: Not Given Insulin Detemir (Levemir Insulin) 24 units SUBQ BID [facility] PRN Reason: Protocol Stop: 09/20/17 08:59 Last Admin: 08/03/17 08:28 Dose: 24 units Lactobacillus Rhamnosus (Culturelle 15b) 1 each PO DAILY [facility] Stop: 09/30/17 10:59 Last Admin: 08/03/17 08:27 Dose: 1 each Magnesium Hydroxide (Milk Of Magnesia) 30 ml GT HS PRN PRN Reason: Constipation Stop: 09/16/17 23:47 Metoclopramide HCl (Reglan) 10 mg GT Q8H [facility] Stop: 09/20/17 13:01 Last Admin: 08/03/17 05:14 Dose: 10 mg Miscellaneous (Vancomycin Iv Per Pharmacy) 1 ea MC PRN [facility] Stop: 09/16/17 23:44 Miscellaneous (Clinical Monitoring) 1 ea MC PRN PRN PRN Reason: RENAL DOSE ZOSYN Stop: 09/17/17 08:23 Miscellaneous (Probiotic Screen) 1 ea MC PRN PRN PRN Reason: PROTOCOL Stop: 09/17/17 10:14 Miscellaneous (Vte Chemical Prophylaxis Screen/ Admission) 1 ea MC PRN PRN PRN Reason: PROTOCOL Stop: 09/17/17 13:47 Morphine Sulfate (Morphine) 2 mg IVP Q4H PRN PRN Reason: Pain (Severe) Stop: 09/16/17 23:53 Last Admin: 07/24/17 23:27 Dose: 2 mg Ondansetron HCl (Zofran) 4 mg IV Q8H PRN PRN Reason: Nausea / Vomiting Stop: 09/16/17 23:54 Last Admin: 07/21/17 18:48 Dose: 4 mg Sodium Phosphate (Fleet Enema) 135 ml RC Q48H PRN PRN Reason: Constipation Stop: 09/16/17 23:47 Zinc Sulfate (Zinc Sulfate) 220 mg GT DAILY [facility] Stop: 09/17/17 08:59 Last Admin: 08/03/17 08:27 Dose: 220 mg General: weak, congested, demented, obtunded HEENT: NC/AT, PERRLA Neck: Supple, + trach Lungs: congested, rales, ronchi Cardiovascular: RRR, without murmur Abdomen: soft, non-tender, non-distended, +GT, positive bowel sound Extremities: excoriation, ulcers stage 3 Neurological: bedbound, spastic - Procedures Procedures: Procedures Procedure Code Date RESPIRATORY VENTILATION, GREATER THAN 96 CONSECUTIVE HOURS [id number] 07/18/17 Internal Medicine Assmt/Plan - Assessment Assessment: sepsis cdiff chronic respiratory failure VDRF leukocytosis hematuria-improved htn dm2 cad chf anemia tracheostomy status hypokalemia acute renal insufficiency elevated troponin mild protein calorie malnutrition acute uti - Plan Plan: contact isolation continue with ivabx renal follow up monitor h/h follow up labs in am vent support continue current plan of care Nutritional Asmnt/Malnutr-PDOC - Dietary Evaluation Malnutrition Findings (Please click <Entered> for more info): Nutritional Asmnt/Malnutrition Start: 07/19/17 17: 24 Text: Status: Complete Freq: Document 07/19/17 17:25 LCHENG (Rec: 07/19/17 17:43 LCHENG [email or web address]) Nutritional Asmnt/Malnutrition Patient General Information Nutritional Screening High Risk Consult Diagnosis Sepsis, UTI Pertinent Medical Hx/Surgical Hx HTN, DM, CAD, CHF, chronic resperatory failure, anemia, PEG/Gtube, tracheostomy Subjective Information Consult received for elevated BG. Pt seen lying in bed, on vent, non verbal comminication noted. Not able to obtain nutrition hx. Spoke with RN, no nutrition plan at this time . Current Diet Order/ Nutrition Support NPO Pertinent Medications Vitamin C, novolog, cultrelle, reglan, vancomycin, , piperacillin, Nacl 0.9%, Zinc Pertinent Labs 07/19 Na 132, K 5.3, Cl 97L, BUN 137, Cr 2.7, Glu 353, POC 324-394, A1C 6.2 Nutritional Hx/Data Height 5 ft 2 in Height (Calculated Centimeters) 157.5 Current Weight (lbs) 178 lb 3.2 oz Weight (Calculated Kilograms) 80.8 Weight (Calculated Grams) 52371.2 [place] Body Weight 110 % [place] Body Weight 162 Body Mass Index (BMI) 32.5 Weight Status Obese GI Symptoms GI Symptoms None Last BM none Usual diet at home Glucerna 1.5 60ml/hr x 20hr daily at [facility] Skin Integrity/Comment: decubitus ulceration to sacrum Estimated Nutritional Goals BEE in Kcals: Adj wt of IBW Calories/Kcals/Kg 30-35 Kcals Calculated Protein: Adj wt of IBW Protein g/k.2-1.5 Protein Calculated 69-87 Fluid: ml Nutritional Problem 2. Problem Problem increased nutrition needs ( calorie and protein) Etiology increased metabolic demand for healing Signs/Symptoms: sepsis 1. Problem Problem altered nutrition related lab values Etiology hx of DM, acute renal insufficiency Signs/Symptoms: BUN 137, Cr 2.7, Glu 353, POC 324-394, A1C 6.2 Malnutrition Alert Protein-Calorie Malnutrition N/A Is there a minimum of two criteria No selected? Query Text:Check all the applicable criteria. A minimum of two criteria are recommended for diagnosis of either severe or non-severe malnutrition. Intervention/Recommendation Comments 1. Monitor NPO status. 2. If enteral feeding needed, recommend to start Diabetisource AC at 30ml/hr continuous. Increased to goal rate of 60ml/hr continuous as tolerated. This will provide 1728kcal, 86g protein and 1179ml water, meeting 100% of nutritional needs. 3. Monitor wt, labs and skin integrity 4. F/U as high risk in 2-3 days, 07/21-07/22 Expected Outcomes/Goals Expected Outcomes/Goals 1. Pt to meet at least 75% of nutritional needs in 2-3 days 2. Wt stability, skin to remain intact, labs to improve .
--- NOTE | 2017-08-03 14:21 | General Progress Note ---
Subjective - Review of Systems Service Date: 08/03/17 Subjective: arousable, comfortable, on vent Objective - Results Result Diagrams: 08/03/17 05:00 08/03/17 05:00 Recent Labs: Laboratory Last Values WBC 12.8 Th/cmm (4.8-10.8) H 08/03/17 05:00 RBC 2.94 Mil/cmm (3.80-5.10) L 08/03/17 05:00 Hgb 8.3 gm/dL (12-16) L 08/03/17 05:00 Hct 25.2 % (41.0-60) L 08/03/17 05:00 MCV 85.6 fl (81-100) 08/03/17 05:00 MCH 28.2 pg (27.0-31.0) 08/03/17 05:00 MCHC Differential 33.0 pg (28.0-36.0) 08/03/17 05:00 RDW 14.5 % (11.5-20.0) 08/03/17 05:00 Plt Count 344 Th/cmm (150-400) 08/03/17 05:00 MPV 10.7 fl 08/03/17 05:00 Neutrophils % 72.7 % (40.0-80.0) 08/03/17 05:00 Band Neutrophils % 2 % (0-10) 08/02/17 06:30 Lymphocytes % 19.2 % (20.0-50.0) L 08/03/17 05:00 Monocytes % 5.1 % (2.0-10.0) 08/03/17 05:00 Eosinophils % 2.4 % (0.0-5.0) 08/03/17 05:00 Basophils % 0.6 % (0.0-2.0) 08/03/17 05:00 Neutrophils (Manual) 63 % (40-80) 08/02/17 06:30 Lymphocytes 29 % (20-50) 08/02/17 06:30 Monocytes 5 % (2-10) 08/02/17 06:30 Eosinophils 1 % (0-5) 08/02/17 06:30 Hypochromia 1+ 07/30/17 04:30 Platelet Estimate ADEQUATE (NORMAL) 07/30/17 04:30 Polychromasia 1+ 07/30/17 04:30 Smear Path Review YES 07/18/17 22:15 Eos Smear Source URINE 07/19/17 22:30 Eos Smear Total Cells NONE SEEN (NONE SEEN) 07/19/17 22:30 PT 10.4 SECONDS (9.5-11.5) 07/30/17 15:12 INR 1.00 (0.5-1.4) 07/30/17 15:12 PTT (Actin FS) 27.5 SECONDS (26.0-38.0) 07/30/17 15:12 Specimen Source Arterial 07/25/17 14:15 Sample Site RIGHT BRACHIAL 07/25/17 14:15 pH 7.48 (7.35-7.45) H 07/25/17 14:15 pCO2 33.0 mmHg (35.0-45.0) L 07/25/17 14:15 pO2 144.0 mmHg (80.0-100.0) H 07/25/17 14:15 HCO3 26.1 mEq/L (20.0-26.0) H 07/25/17 14:15 Base Excess 1.5 mEq/L (-3.0-3.0) 07/25/17 14:15 O2 Saturation 99.0 % (92.0-100.0) 07/25/17 14:15 Circket Test Positive 07/25/17 14:15 Vent Rate 12 07/25/17 14:15 Inspired O2 35 07/25/17 14:15 Tidal Volume 500 07/25/17 14:15 PEEP 5 07/25/17 14:15 Pressure (ins/psv/peep) N/A 07/25/17 14:15 Critical Value HSTEHNO 07/25/17 14:15 Sodium 133 mEq/L (136-145) L 08/03/17 05:00 Potassium 4.3 mEq/L (3.5-5.1) 08/03/17 05:00 Chloride 104 mEq/L (98-107) 08/03/17 05:00 Carbon Dioxide 24.3 mEq/L (21.0-31.0) 08/03/17 05:00 Anion Gap 9.0 (7.0-16.0) 08/03/17 05:00 BUN 47 mg/dL (7-25) H 08/03/17 05:00 Creatinine 1.2 mg/dL (0.6-1.2) 08/03/17 05:00 Est GFR ( Amer) 58.5 ml/min (>90) 08/03/17 05:00 Est GFR (Non-Af Amer) 48.4 ml/min 08/03/17 05:00 BUN/Creatinine Ratio 39.2 08/03/17 05:00 Glucose 116 mg/dL (70-105) H 08/03/17 05:00 POC Glucose 89 MG/DL (70 - 105) 08/03/17 11:12 Hemoglobin A1c % 6.2 % (4.0-6.0) H 07/18/17 23:30 Plasma/Ser Osmolality 344 mOsmol/kg (280-301) H 07/19/17 23:30 Whole Bld Lactic Acid 0.61 mmol/L (0.60-1.99) 07/20/17 04:10 Uric Acid 9.5 mg/dL (2.3-6.6) H 07/20/17 04:10 Calcium 8.7 mg/dL (8.6-10.3) 08/03/17 05:00 Phosphorus 4.5 mg/dL (2.5-5.0) 07/20/17 04:10 Magnesium 1.8 mg/dL (1.9-2.7) L 07/28/17 05:00 Iron 36 ug/dL (27-139) 07/30/17 04:30 TIBC 160 ug/dL (250-450) L 07/30/17 04:30 Iron Saturation 23 % (15-55) 07/30/17 04:30 Unsaturated IBC 124 ug/dL (118-369) 07/30/17 04:30 Total Bilirubin 0.3 mg/dL (0.3-1.0) 08/01/17 05:55 AST 9 U/L (13-39) L 08/01/17 05:55 ALT 11 U/L (7-52) 08/01/17 05:55 Alkaline Phosphatase 111 U/L (34-104) H 08/01/17 05:55 Ammonia 50 umol/L (16-53) 07/28/17 06:00 Creatine Kinase 26 U/L (30-223) L 07/18/17 22:15 Troponin I 0.27 ng/mL (0.01-0.05) H* 07/18/17 22:15 B-Natriuretic Peptide 309.0 pg/mL (5.0-100.0) H 08/02/17 06:30 Total Protein 6.4 gm/dL (6.0-8.3) 08/01/17 05:55 Albumin 2.9 gm/dL (3.7-5.3) L 08/01/17 05:55 Globulin 3.5 gm/dL 08/01/17 05:55 Albumin/Globulin Ratio 0.8 (1.0-1.8) L 08/01/17 05:55 Vitamin B12 >1999 pg/mL (232-1245) H 07/30/17 04:30 Folic Acid >20.0 ng/mL (>3.0) 07/30/17 04:30 TSH 2.30 uIU/ml (0.34-5.60) 07/19/17 04:15 Urine Source [place] 07/18/17 21:30 Urine Color RED 07/18/17 21:30 Urine Clarity CLOUDY (CLEAR) H 07/18/17 21:30 Urine pH 7.5 (4.6 - 8.0) 07/18/17 21:30 Ur Specific [place] 1.025 (1.005-1.030) 07/18/17 21:30 Urine Protein >=300 mg/dL (NEGATIVE) 07/18/17 21:30 Urine Glucose (UA) NEGATIVE mg/dL (NEGATIVE) 07/18/17 21:30 Urine Ketones NEGATIVE mg/dL (NEGATIVE) 07/18/17 21:30 Urine Blood LARGE (NEGATIVE) H 07/18/17 21:30 Urine Nitrate NEGATIVE (NEGATIVE) 07/18/17 21:30 Urine Bilirubin NEGATIVE (NEGATIVE) 07/18/17 21:30 Urine Urobilinogen 0.2 E.U./dL (0.2 - 1.0) 07/18/17 21:30 Ur Leukocyte Esterase SMALL (NEGATIVE) H 07/18/17 21:30 Urine RBC 50-100 /hpf (0-5) H 07/18/17 21:30 Urine WBC 6-10 /hpf (0-5) H 07/18/17 21:30 Ur Epithelial Cells FEW /lpf (FEW) 07/18/17 21:30 Urine Bacteria MANY /hpf (NONE SEEN) 07/18/17 21:30 Ur Random Sodium 28 mmol/L 07/19/17 22:30 Urine Creatinine 26.3 mg/dl (Not Estab.) 07/19/17 22:30 Urine Microalbumin 2398.5 ug/mL (Not Estab.) 07/19/17 22:30 Microalb/Creat Ratio 9119.8 07/19/17 22:30 Stool Occult Blood NEGATIVE (NEGATIVE) 07/24/17 03:37 Vancomycin Trough 30.5 ug/mL (10-20) H 08/03/17 08:08 Random Vancomycin 31.7 ug/mL (5.0-40.0) 08/01/17 05:55 Blood Type O NEGATIVE 07/20/17 08:15 Antibody Screen NEGATIVE 07/20/17 08:15 - Physical Exam Vitals and I&O: Vital Signs Temp 97.4 F 08/03/17 12:00 Pulse 69 08/03/17 12:00 Resp 17 08/03/17 12:00 BP 124/44 08/03/17 12:00 Pulse Ox 100 08/03/17 12:00 Intake & Output 08/02/17 08/03/17 08/03/17 18:59 06:59 18:59 Intake Total 940 2090 Output Total 2500 2550 Balance -1560 -460 Weight (lbs) 85.389 kg 85.36 kg Intake: Intake, IV Amount 100 1100 Meropenem 1 gm In 100 100 Dextrose 5% 100 ml @ 100 mls/hr IV Q12H [facility] Rx#: [id number] Sodium Chloride 0.9% 1, 1000 000 ml @ 75 mls/hr IV . [id number] [facility] Rx#:[id number] Oral 0 Tube Feeding 840 840 Other 150 Output: Urine 2400 1550 Stool 100 1000 Other: Stool Characteristics Soft Liquid Liquid Brown Brown Brown Active Medications: Current Medications Acetaminophen (Tylenol 650mg/20.3ml Suspension) 650 mg GT Q4H PRN PRN Reason: Pain or Fever >101 Stop: 09/16/17 23:47 Last Admin: 07/22/17 00:35 Dose: 650 mg Albuterol/Ipratropium (Duoneb Neb) 3 ml HHN Q6HRT [facility] Stop: 09/17/17 12:59 Last Admin: 08/03/17 07:34 Dose: 3 ml Albuterol/Ipratropium (Duoneb Neb) 3 ml HHN Q2HR PRN PRN Reason: Shortness of Breath Stop: 09/16/17 23:47 Ascorbic Acid (Vitamin C) 500 mg GT DAILY [facility] Stop: 09/17/17 08:59 Last Admin: 08/03/17 08:27 Dose: 500 mg Bisacodyl (Dulcolax 10 Mg Supp) 10 mg RC DAILY PRN PRN Reason: constip Stop: 09/16/17 23:47 Calamine/Phenol (Calmoseptine) 1 appl TP QID PRN PRN Reason: Skin Irritation Stop: 09/24/17 09:35 Calamine/Phenol (Calmoseptine) 1 appl TP QID [facility] Stop: 09/24/17 12:59 Last Admin: 08/03/17 14:00 Dose: 1 appl Carvedilol (Coreg) 6.25 mg GT BID [facility] Stop: 09/17/17 08:59 Last Admin: 08/03/17 11:03 Dose: 6.25 mg [place] Oil/[place]onegasque Balsam/Trypsin (Venelex) 1 appl TP DAILY [facility] Stop: 09/25/17 08:59 Last Admin: 08/03/17 08:30 Dose: 1 appl Chlorhexidine Gluconate (Peridex) 15 ml MM 0800,2000 [facility] Stop: 09/17/17 07:59 Last Admin: 08/03/17 08:27 Dose: 15 ml Docusate Sodium (Colace) 100 mg GT BID PRN PRN Reason: Constipation Famotidine (Pepcid) 20 mg GT Q12H [facility] Stop: 09/16/17 23:44 Last Admin: 08/03/17 11:03 Dose: 20 mg Guaifenesin (Robitussin) 200 mg PO Q4HR PRN PRN Reason: Cough or Congestion Stop: 09/16/17 23:54 Heparin Sodium (Porcine) (Heparin) 5,000 units SUBQ Q12HR [facility] Stop: 09/17/17 08:59 Last Admin: 08/03/17 08:28 Dose: 5,000 units Meropenem 1 gm/ Dextrose 100 mls @ 100 mls/hr IV Q12H [facility] Stop: 09/30/17 14:59 Last Infusion: 08/03/17 04:30 Dose: Infused Sodium Chloride (Nacl 0.9%) 1,000 mls @ 75 mls/hr IV .[id number] [facility] Stop: 10/01/17 15:29 Last Admin: 08/03/17 06:00 Dose: 75 mls/hr Insulin Aspart (Novolog) 0 units SUBQ Q6HR [facility] PRN Reason: Protocol Stop: 09/18/17 17:59 Last Admin: 08/03/17 11:19 Dose: Not Given Insulin Detemir (Levemir Insulin) 24 units SUBQ BID [facility] PRN Reason: Protocol Stop: 09/20/17 08:59 Last Admin: 08/03/17 08:28 Dose: 24 units Lactobacillus Rhamnosus (Culturelle 15b) 1 each PO DAILY [facility] Stop: 09/30/17 10:59 Last Admin: 08/03/17 08:27 Dose: 1 each Magnesium Hydroxide (Milk Of Magnesia) 30 ml GT HS PRN PRN Reason: Constipation Stop: 09/16/17 23:47 Metoclopramide HCl (Reglan) 10 mg GT Q8H [facility] Stop: 09/20/17 13:01 Last Admin: 08/03/17 13:59 Dose: 10 mg Miscellaneous (Vancomycin Iv Per Pharmacy) 1 ea MC PRN [facility] Stop: 09/16/17 23:44 Miscellaneous (Clinical Monitoring) 1 ea MC PRN PRN PRN Reason: RENAL DOSE ZOSYN Stop: 09/17/17 08:23 Miscellaneous (Probiotic Screen) 1 ea MC PRN PRN PRN Reason: PROTOCOL Stop: 09/17/17 10:14 Miscellaneous (Vte Chemical Prophylaxis Screen/ Admission) 1 ea MC PRN PRN PRN Reason: PROTOCOL Stop: 09/17/17 13:47 Morphine Sulfate (Morphine) 2 mg IVP Q4H PRN PRN Reason: Pain (Severe) Stop: 09/16/17 23:53 Last Admin: 07/24/17 23:27 Dose: 2 mg Ondansetron HCl (Zofran) 4 mg IV Q8H PRN PRN Reason: Nausea / Vomiting Stop: 09/16/17 23:54 Last Admin: 07/21/17 18:48 Dose: 4 mg Sodium Phosphate (Fleet Enema) 135 ml RC Q48H PRN PRN Reason: Constipation Stop: 09/16/17 23:47 Zinc Sulfate (Zinc Sulfate) 220 mg GT DAILY [facility] Stop: 09/17/17 08:59 Last Admin: 08/03/17 08:27 Dose: 220 mg General: Alert, No acute distress HEENT: Atraumatic, Mucous membr. moist/pink Neck: Supple, +2 carotid pulse wo bruit Cardiovascular: Regular rate, Normal S1, Normal S2 Lungs: Other (few rhonchi) Abdomen: Soft, Distended Extremities: no Edema Neurological: Sensation intact Skin: no Rash Psych/Mental Status: Mood NL - Procedures Procedures: Procedures Procedure Code Date RESPIRATORY VENTILATION, GREATER THAN 96 CONSECUTIVE HOURS [id number] 07/18/17 Assessment/Plan - Assessment Assessment: ADELA Right Hydronephrosis, hydroureter w/ partial obstruction since has good UOP, improvement Kidney fnc Gross hematuria 2nd to trauma better Sepsis 2nd to Cx UTI RFVD Anemia CD Ess Htn Type 2 DM Met Enceph C. diff colitis Hypokalemia Hypernatremia - Plan Plan: Lab - Result Diagrams 07/20/17 04:10 07/20/17 04:10 Current Medications Acetaminophen (Tylenol 650mg/20.3ml Suspension) 650 mg GT Q4H PRN PRN Reason: Pain or Fever >101 Stop: 09/16/17 23:47 Albuterol/Ipratropium (Duoneb Neb) 3 ml HHN Q6HRT [facility] Stop: 09/17/17 12:59 Last Admin: 07/20/17 13:39 Dose: 3 ml Albuterol/Ipratropium (Duoneb Neb) 3 ml HHN Q2HR PRN PRN Reason: Shortness of Breath Stop: 09/16/17 23:47 Ascorbic Acid (Vitamin C) 500 mg GT DAILY [facility] Stop: 09/17/17 08:59 Last Admin: 07/20/17 09:07 Dose: 500 mg Bisacodyl (Dulcolax 10 Mg Supp) 10 mg RC DAILY PRN PRN Reason: constip Stop: 09/16/17 23:47 Carvedilol (Coreg) 3.125 mg GT BID [facility] Stop: 09/17/17 08:59 Last Admin: 07/20/17 16:43 Dose: 3.125 mg Chlorhexidine Gluconate (Peridex) 15 ml MM 0800,1999 [facility] Stop: 09/17/17 07:59 Last Admin: 07/20/17 07:56 Dose: 15 ml Docusate Sodium (Colace) 100 mg GT BID PRN PRN Reason: Constipation Famotidine (Pepcid) 20 mg GT Q12H [facility] Stop: 09/16/17 23:44 Last Admin: 07/20/17 11:56 Dose: 20 mg Guaifenesin (Robitussin) 200 mg PO Q4HR PRN PRN Reason: Cough or Congestion Stop: 09/16/17 23:54 Heparin Sodium (Porcine) (Heparin) 5,000 units SUBQ Q12HR [facility] Stop: 09/17/17 08:59 Last Admin: 07/20/17 09:09 Dose: 5,000 units Piperacillin Sod/Tazobactam (Sod 2.25 gm/ Sodium Chloride) 100 mls @ 100 mls/ hr IV Q8H [facility] Stop: 09/17/17 08:59 Last Admin: 07/20/17 16:43 Dose: 100 mls/hr Vancomycin HCl 1 gm/ Dextrose 250 mls @ 165 mls/hr IV Q36H [facility] Stop: 09/18/17 01:59 Last Infusion: 07/20/17 04:00 Dose: Infused Sodium Chloride (Nacl 0.9%) 1,000 mls @ 100 mls/hr IV .Q10H [facility] Stop: 09/16/17 23:44 Last Admin: 07/20/17 02:00 Dose: 100 mls/hr Insulin Aspart (Novolog) 0 units SUBQ Q6HR [facility] PRN Reason: Protocol Stop: 09/18/17 17:59 Insulin Detemir (Levemir Insulin) 18 units SUBQ BID [facility] PRN Reason: Protocol Stop: 09/18/17 08:59 Last Admin: 07/20/17 16:44 Dose: 18 units Lactobacillus Rhamnosus (Culturelle) 1 each PO DAILY [facility] Stop: 09/18/17 08:59 Last Admin: 07/20/17 09:07 Dose: 1 each Magnesium Hydroxide (Milk Of Magnesia) 30 ml GT HS PRN PRN Reason: Constipation Stop: 09/16/17 23:47 Metoclopramide HCl (Reglan) 5 mg GT Q8H [facility] Stop: 09/16/17 23:44 Last Admin: 07/20/17 15:45 Dose: Not Given Miscellaneous (Vancomycin Iv Per Pharmacy) 1 ea MC PRN [facility] Stop: 09/16/17 23:44 Miscellaneous (Clinical Monitoring) 1 ea MC PRN PRN PRN Reason: RENAL DOSE ZOSYN Stop: 09/17/17 08:23 Miscellaneous (Probiotic Screen) 1 ea MC PRN PRN PRN Reason: PROTOCOL Stop: 09/17/17 10:14 Miscellaneous (Vte Chemical Prophylaxis Screen/ Admission) 1 ea MC PRN PRN PRN Reason: PROTOCOL Stop: 09/17/17 13:47 Morphine Sulfate (Morphine) 2 mg IVP Q4H PRN PRN Reason: Pain (Severe) Stop: 09/16/17 23:53 Ondansetron HCl (Zofran) 4 mg IV Q8H PRN PRN Reason: Nausea / Vomiting Stop: 09/16/17 23:54 Sodium Phosphate (Fleet Enema) 135 ml RC Q48H PRN PRN Reason: Constipation Stop: 09/16/17 23:47 Vancomycin HCl (Vancomycin Oral) 250 mg GT Q6HR [facility] Stop: 09/18/17 17:59 Last Admin: 07/20/17 17:54 Dose: 250 mg Zinc Sulfate (Zinc Sulfate) 220 mg GT DAILY [facility] Stop: 09/17/17 08:59 Last Admin: 07/20/17 09:07 Dose: 220 mg Lab - Result Diagrams 08/03/17 05:00 08/03/17 05:00 BUN up to 47 UOP still adequate Na up to 133 K elevation iatrogenic no further hematuria CT pelvis revealed right hydronephrosis/ureter Increase IVF since now in negative balance w/ clear CXR f/u elelctrolytes, cbc Nutritional Asmnt/Malnutr-PDOC - Dietary Evaluation Malnutrition Findings (Please click <Entered> for more info): Nutritional Asmnt/Malnutrition Start: 07/19/17 17: 24 Text: Status: Complete Freq: Document 07/19/17 17:25 [email or web address] (Rec: 07/19/17 17:43 LCBRITNEY [email or web address]) Nutritional Asmnt/Malnutrition Patient General Information Nutritional Screening High Risk Consult Diagnosis Sepsis, UTI Pertinent Medical Hx/Surgical Hx HTN, DM, CAD, CHF, chronic resperatory failure, anemia, PEG/Gtube, tracheostomy Subjective Information Consult received for elevated BG. Pt seen lying in bed, on vent, non verbal comminication noted. Not able to obtain nutrition hx. Spoke with RN, no nutrition plan at this time . Current Diet Order/ Nutrition Support NPO Pertinent Medications Vitamin C, novolog, cultrelle, reglan, vancomycin, , piperacillin, Nacl 0.9%, Zinc Pertinent Labs 07/19 Na 132, K 5.3, Cl 97L, BUN 137, Cr 2.7, Glu 353, POC 324-394, A1C 6.2 Nutritional Hx/Data Height 1.57 m Height (Calculated Centimeters) 157.5 Current Weight (lbs) 80.83 kg Weight (Calculated Kilograms) 80.8 Weight (Calculated Grams) 65523.2 [place] Body Weight 110 % [place] Body Weight 162 Body Mass Index (BMI) 32.5 Weight Status Obese GI Symptoms GI Symptoms None Last BM none Usual diet at home Glucerna 1.5 60ml/hr x 20hr daily at [facility] Skin Integrity/Comment: decubitus ulceration to sacrum Estimated Nutritional Goals BEE in Kcals: Adj wt of IBW Calories/Kcals/Kg 30-35 Kcals Calculated 6319-6057 Protein: Adj wt of IBW Protein g/k.2-1.5 Protein Calculated 69-87 Fluid: ml Nutritional Problem 2. Problem Problem increased nutrition needs ( calorie and protein) Etiology increased metabolic demand for healing Signs/Symptoms: sepsis 1. Problem Problem altered nutrition related lab values Etiology hx of DM, acute renal insufficiency Signs/Symptoms: BUN 137, Cr 2.7, Glu 353, POC 324-394, A1C 6.2 Malnutrition Alert Protein-Calorie Malnutrition N/A Is there a minimum of two criteria No selected? Query Text:Check all the applicable criteria. A minimum of two criteria are recommended for diagnosis of either severe or non-severe malnutrition. Intervention/Recommendation Comments 1. Monitor NPO status. 2. If enteral feeding needed, recommend to start Diabetisource AC at 30ml/hr continuous. Increased to goal rate of 60ml/hr continuous as tolerated. This will provide 1728kcal, 86g protein and 1179ml water, meeting 100% of nutritional needs. 3. Monitor wt, labs and skin integrity 4. F/U as high risk in 2-3 days, 07/21-07/22 Expected Outcomes/Goals Expected Outcomes/Goals 1. Pt to meet at least 75% of nutritional needs in 2-3 days 2. Wt stability, skin to remain intact, labs to improve .
--- NOTE | 2017-08-03 15:18 | Diagnostic Imaging Report ---
CT abdomen and pelvis without intravenous contrast Indication: Hydronephrosis Comparison: CT abdomen and pelvis on 07/21/2017, Technique: Axial images were obtained from the lung bases to the bilateral proximal femurs without IV contrast. Coronal reconstructions were made. total DLP: 668, CTDI13.4 FINDINGS: Atelectatic hypoventilatory changes of the left lung base is noted. Assessment of solid organs is limited due to lack of IV contrast. No evidence of focal hepatic lesions. Splenic calcifications are noted which appear to be vascular. Pancreatic calcifications are also noted likely due to chronic inflammatory process. Diffuse splenic artery calcifications are noted. No focal lesions. There is moderate to severe right hydronephrosis. There is tortuosity and possible mild narrowing along the proximal right ureter with mild right hydroureter seen distally. Ocampo catheter is seen with urinary bladder wall thickening and pockets of gas within the urinary bladder. Rectal tube device is noted. Small amount of free fluid is seen within the pelvis. Percutaneous gastric feeding tube is noted. Moderate amount of stool is noted. No appendicitis. No evidence of free abdominal air. Atherosclerosis is noted. Postsurgical changes of the lower lumbar spine are noted. Degenerative changes of the spine and pelvis are noted. There is mild anasarca. IMPRESSION: Moderate to severe right hydronephrosis and right hydroureter proximally. There is tortuosity of the proximal right ureter with possible mild focal narrowing in this region. Right perinephric inflammatory changes are also noted. Ocampo catheter noted with diffuse pockets of gas within the urinary bladder which have decreased since prior examination. Findings may have been due to previous infectious or inflammatory process. Urinary bladder wall thickening is also again noted. Small amount of free fluid in the pelvis Percutaneous gastric feeding tube noted Rectal tube also noted. Atherosclerotic vascular disease. Mild anasarca.
--- NOTE | 2017-08-03 23:52 | Progress Notes ---
DATE: 08/03/2017 UROLOGY PROGRESS NOTE SUBJECTIVE: The patient is doing better in terms of white count, but otherwise no major change. Percutaneous nephrostomy has not been done as yet due to technical difficulties of putting her into prone position and having the tracheostomy and the ventilator in the way. The radiologist suggested a repeat CT scan to see if the hydronephrosis has changed and therefore, we decided to do that today. OBJECTIVE: VITAL SIGNS: On exam, blood pressure 110/58, heart rate 64, saturating 99% on FIO2 of 30%, assist control 12 on the ventilator. Last temperature 97.4. She has not had a fever for a while. ABDOMEN: Soft, nontender, nondistended and G-tube being used satisfactorily. Ocampo catheter, clear urine, no blood. CARDIOVASCULAR: Heart sounds in sinus rhythm, no murmur. LABORATORY DATA: White count down to 12.8 for the first time with 0 bands, hemoglobin 8.3, creatinine 1.2 around the lowest number she has always had or ever had at 1.1. Last two sugar levels 89 and 82 indicative of adequate diabetes control. IMPRESSION: 1. Right hydronephrosis did not resolve with the Ocampo on last check with the ultrasound, therefore, repeat CT scan today for further clarification 2. Neurogenic bladder with retention and infection, now with Ocampo catheter and regular irrigations settling down 3. Neurogenic bladder from diabetes and multiple sclerosis. No major changes. 4. Congestive heart failure and coronary artery disease by history. No recent occurrences. 5. Tracheostomy and G-tube dependency, stable. [facility]# [id number]
[2017-08-04] MEDS: INSULIN ASPART, RECOMBINANT 100 UNITS/ML SUBQ SCH ×4 (00:20→20:04)
[2017-08-04] MEDS: Albuterol/Ipratropium Neb 3 ML AERS HHN SCH ×4 (01:35→19:16)
[2017-08-04 05:32] LABS: HEMATOCRIT 23.6 % (41.0-60)
[2017-08-04 05:40] LABS: MEAN CELL VOLUME 85.9 fl (81-100); MEAN CORPUSCULAR HEMOGLOBIN 28.9 pg (27.0-31.0); MEAN CORPUSCULAR HGB CONC 33.6 pg (28.0-36.0); MEAN PLATELET VOLUME 10.4 fl; PLATELET COUNT 334 Th/cmm (150-400); RED BLOOD COUNT 2.74 Mil/cmm (3.80-5.10); RED CELL DISTRIBUTION WIDTH 14.5 % (11.5-20.0); WHITE BLOOD COUNT 11.4 Th/cmm (4.8-10.8)
[2017-08-04 05:50] LABS: HEMOGLOBIN 7.9 gm/dL (12-16); MANUAL DIFF REQUIRED? YES
[2017-08-04 05:52] LABS: ANION GAP 8.6 (7.0-16.0); BUN - UREA NITROGEN 49 mg/dL (7-25); CALCIUM SERUM 8.6 mg/dL (8.6-10.3); CARBON DIOXIDE 24.6 mEq/L (21.0-31.0); CHLORIDE 103 mEq/L (98-107); CREATININE - SERUM 1.1 mg/dL (0.6-1.2); GFR AFRICAN-AMERICAN > 60.0 ml/min (>90); GFR NON AFRICAN-AMERICAN 53.5 ml/min; GLUCOSE 93 mg/dL (70-105); POTASSIUM SERUM 4.2 mEq/L (3.5-5.1); SODIUM SERUM 132 mEq/L (136-145)
[2017-08-04 06:40] LABS: BAND NEUTROPHILE 4 % (0-10); LYMPHOCYTE 24 % (20-50); MONOCYTE 3 % (2-10); NEUTROPHILS 69 % (40-80); PLATELET ESTIMATE ADEQUATE (NORMAL); TOTAL CELLS COUNTED 100
[2017-08-04] MEDS: Chlorhexidine Gluconate 0.12% 15mL Mouthwash MM SCH ×2 (08:30→20:04)
[2017-08-04] MEDS: Insulin Detemir 100 units/mL 10mL Vial SUBQ SCH ×2 (09:28→20:04)
[2017-08-04] MEDS: Menthol/Zinc Oxide Oint 113gm Tube TP SCH ×4 (09:31→20:07)
[2017-08-04] MEDS: Venelex 60gm Tube TP SCH (09:31)
[2017-08-04] MEDS: Lactobacillus Rhamnosus GG 15 Billion CFU CAP.SPRINK PO SCH (09:31)
[2017-08-04] MEDS: Multivitamin w/ Minerals Tab GT SCH (09:32)
[2017-08-04] MEDS: Sodium Chloride 0.9% 1,000 ML IV SCH (09:32)
--- NOTE | 2017-08-04 09:42 | Diagnostic Imaging Report ---
Portable chest x-ray HISTORY: Shortness of breath The heart size is difficult to assess with portable technique and a poor inspiration, but appears to be generous. Allowing for the poor inspiration, no acute focal pulmonary processes. Atherosclerotic calcification seen within the aorta. Tracheostomy noted. Vascular catheter tip is in the region of the superior vena cava. IMPRESSION: 1. Allowing for a poor inspiration, no acute focal pulmonary processes 2. Probable cardiomegaly with atherosclerotic vascular changes
--- NOTE | 2017-08-04 13:59 | General Progress Note ---
Subjective - Review of Systems Service Date: 08/04/17 Subjective: awake, comfortable, on vent Objective - Results Result Diagrams: 08/04/17 04:45 08/04/17 04:45 Recent Labs: Laboratory Last Values WBC 11.4 Th/cmm (4.8-10.8) H 08/04/17 04:45 RBC 2.74 Mil/cmm (3.80-5.10) L 08/04/17 04:45 Hgb 7.9 gm/dL (12-16) L* 08/04/17 04:45 Hct 23.6 % (41.0-60) L 08/04/17 04:45 MCV 85.9 fl (81-100) 08/04/17 04:45 MCH 28.9 pg (27.0-31.0) 08/04/17 04:45 MCHC Differential 33.6 pg (28.0-36.0) 08/04/17 04:45 RDW 14.5 % (11.5-20.0) 08/04/17 04:45 Plt Count 334 Th/cmm (150-400) 08/04/17 04:45 MPV 10.4 fl 08/04/17 04:45 Neutrophils % 72.7 % (40.0-80.0) 08/03/17 05:00 Band Neutrophils % 4 % (0-10) 08/04/17 04:45 Lymphocytes % 19.2 % (20.0-50.0) L 08/03/17 05:00 Monocytes % 5.1 % (2.0-10.0) 08/03/17 05:00 Eosinophils % 2.4 % (0.0-5.0) 08/03/17 05:00 Basophils % 0.6 % (0.0-2.0) 08/03/17 05:00 Neutrophils (Manual) 69 % (40-80) 08/04/17 04:45 Lymphocytes 24 % (20-50) 08/04/17 04:45 Monocytes 3 % (2-10) 08/04/17 04:45 Eosinophils 1 % (0-5) 08/02/17 06:30 Hypochromia 1+ 07/30/17 04:30 Platelet Estimate ADEQUATE (NORMAL) 08/04/17 04:45 Polychromasia 1+ 07/30/17 04:30 Smear Path Review YES 07/18/17 22:15 Eos Smear Source URINE 07/19/17 22:30 Eos Smear Total Cells NONE SEEN (NONE SEEN) 07/19/17 22:30 PT 10.4 SECONDS (9.5-11.5) 07/30/17 15:12 INR 1.00 (0.5-1.4) 07/30/17 15:12 PTT (Actin FS) 27.5 SECONDS (26.0-38.0) 07/30/17 15:12 Specimen Source Arterial 07/25/17 14:15 Sample Site RIGHT BRACHIAL 07/25/17 14:15 pH 7.48 (7.35-7.45) H 07/25/17 14:15 pCO2 33.0 mmHg (35.0-45.0) L 07/25/17 14:15 pO2 144.0 mmHg (80.0-100.0) H 07/25/17 14:15 HCO3 26.1 mEq/L (20.0-26.0) H 07/25/17 14:15 Base Excess 1.5 mEq/L (-3.0-3.0) 07/25/17 14:15 O2 Saturation 99.0 % (92.0-100.0) 07/25/17 14:15 Cricket Test Positive 07/25/17 14:15 Vent Rate 12 07/25/17 14:15 Inspired O2 35 07/25/17 14:15 Tidal Volume 500 07/25/17 14:15 PEEP 5 07/25/17 14:15 Pressure (ins/psv/peep) N/A 07/25/17 14:15 Critical Value HSTEHNO 07/25/17 14:15 Sodium 132 mEq/L (136-145) L 08/04/17 04:45 Potassium 4.2 mEq/L (3.5-5.1) 08/04/17 04:45 Chloride 103 mEq/L (98-107) 08/04/17 04:45 Carbon Dioxide 24.6 mEq/L (21.0-31.0) 08/04/17 04:45 Anion Gap 8.6 (7.0-16.0) 08/04/17 04:45 BUN 49 mg/dL (7-25) H 08/04/17 04:45 Creatinine 1.1 mg/dL (0.6-1.2) 08/04/17 04:45 Est GFR ( Amer) > 60.0 ml/min (>90) 08/04/17 04:45 Est GFR (Non-Af Amer) 53.5 ml/min 08/04/17 04:45 BUN/Creatinine Ratio 44.5 08/04/17 04:45 Glucose 93 mg/dL (70-105) 08/04/17 04:45 POC Glucose 91 MG/DL (70 - 105) 08/04/17 11:40 Hemoglobin A1c % 6.2 % (4.0-6.0) H 07/18/17 23:30 Plasma/Ser Osmolality 344 mOsmol/kg (280-301) H 07/19/17 23:30 Whole Bld Lactic Acid 0.61 mmol/L (0.60-1.99) 07/20/17 04:10 Uric Acid 9.5 mg/dL (2.3-6.6) H 07/20/17 04:10 Calcium 8.6 mg/dL (8.6-10.3) 08/04/17 04:45 Phosphorus 4.5 mg/dL (2.5-5.0) 07/20/17 04:10 Magnesium 1.8 mg/dL (1.9-2.7) L 07/28/17 05:00 Iron 36 ug/dL (27-139) 07/30/17 04:30 TIBC 160 ug/dL (250-450) L 07/30/17 04:30 Iron Saturation 23 % (15-55) 07/30/17 04:30 Unsaturated IBC 124 ug/dL (118-369) 07/30/17 04:30 Total Bilirubin 0.3 mg/dL (0.3-1.0) 08/01/17 05:55 AST 9 U/L (13-39) L 08/01/17 05:55 ALT 11 U/L (7-52) 08/01/17 05:55 Alkaline Phosphatase 111 U/L (34-104) H 08/01/17 05:55 Ammonia 32 umol/L (16-53) 08/04/17 04:45 Creatine Kinase 26 U/L (30-223) L 07/18/17 22:15 Troponin I 0.27 ng/mL (0.01-0.05) H* 07/18/17 22:15 B-Natriuretic Peptide 335.0 pg/mL (5.0-100.0) H 08/04/17 04:45 Total Protein 6.4 gm/dL (6.0-8.3) 08/01/17 05:55 Albumin 2.9 gm/dL (3.7-5.3) L 08/01/17 05:55 Globulin 3.5 gm/dL 08/01/17 05:55 Albumin/Globulin Ratio 0.8 (1.0-1.8) L 08/01/17 05:55 Vitamin B12 >1999 pg/mL (232-1245) H 07/30/17 04:30 Folic Acid >20.0 ng/mL (>3.0) 07/30/17 04:30 TSH 2.30 uIU/ml (0.34-5.60) 07/19/17 04:15 Urine Source [place] 07/18/17 21:30 Urine Color RED 07/18/17 21:30 Urine Clarity CLOUDY (CLEAR) H 07/18/17 21:30 Urine pH 7.5 (4.6 - 8.0) 07/18/17 21:30 Ur Specific [place] 1.025 (1.005-1.030) 07/18/17 21:30 Urine Protein >=300 mg/dL (NEGATIVE) 07/18/17 21:30 Urine Glucose (UA) NEGATIVE mg/dL (NEGATIVE) 07/18/17 21:30 Urine Ketones NEGATIVE mg/dL (NEGATIVE) 07/18/17 21:30 Urine Blood LARGE (NEGATIVE) H 07/18/17 21:30 Urine Nitrate NEGATIVE (NEGATIVE) 07/18/17 21:30 Urine Bilirubin NEGATIVE (NEGATIVE) 07/18/17 21:30 Urine Urobilinogen 0.2 E.U./dL (0.2 - 1.0) 07/18/17 21:30 Ur Leukocyte Esterase SMALL (NEGATIVE) H 07/18/17 21:30 Urine RBC 50-100 /hpf (0-5) H 07/18/17 21:30 Urine WBC 6-10 /hpf (0-5) H 07/18/17 21:30 Ur Epithelial Cells FEW /lpf (FEW) 07/18/17 21:30 Urine Bacteria MANY /hpf (NONE SEEN) 07/18/17 21:30 Ur Random Sodium 28 mmol/L 07/19/17 22:30 Urine Creatinine 26.3 mg/dl (Not Estab.) 07/19/17 22:30 Urine Microalbumin 2398.5 ug/mL (Not Estab.) 07/19/17 22:30 Microalb/Creat Ratio 9119.8 07/19/17 22:30 Stool Occult Blood NEGATIVE (NEGATIVE) 07/24/17 03:37 Vancomycin Trough 30.5 ug/mL (10-20) H 08/03/17 08:08 Random Vancomycin 31.7 ug/mL (5.0-40.0) 08/01/17 05:55 Blood Type O NEGATIVE 07/20/17 08:15 Antibody Screen NEGATIVE 07/20/17 08:15 - Physical Exam Vitals and I&O: Vital Signs Temp 96.6 F 08/04/17 12:00 Pulse 68 08/04/17 12:00 Resp 18 08/04/17 12:00 BP 137/45 08/04/17 12:00 Pulse Ox 100 08/04/17 12:00 Intake & Output 08/03/17 08/04/17 08/04/17 18:59 06:59 18:59 Intake Total 680 2120.25 112.5 Output Total 1600 1200 Balance -920 920.25 112.5 Weight (lbs) 85.275 kg 84.992 kg Intake: Intake, IV Amount 1886.25 112.5 Meropenem 1 gm In 200 Dextrose 5% 100 ml @ 100 mls/hr IV Q12H [facility] Rx#: [id number] Sodium Chloride 0.9% 1, 1686.25 112.5 000 ml @ 75 mls/hr IV . [id number] [facility] Rx#:[id number] Oral 0 Tube Feeding 560 84 Other 120 150 Output: Urine 1600 900 Stool 300 Other: # Bowel Movements 1 Stool Characteristics Liquid Liquid Liquid Brown Brown Brown Active Medications: Current Medications Acetaminophen (Tylenol 650mg/20.3ml Suspension) 650 mg GT Q4H PRN PRN Reason: Pain or Fever >101 Stop: 09/16/17 23:47 Last Admin: 07/22/17 00:35 Dose: 650 mg Albuterol/Ipratropium (Duoneb Neb) 3 ml HHN Q6HRT [facility] Stop: 09/17/17 12:59 Last Admin: 08/04/17 13:52 Dose: 3 ml Albuterol/Ipratropium (Duoneb Neb) 3 ml HHN Q2HR PRN PRN Reason: Shortness of Breath Stop: 09/16/17 23:47 Ascorbic Acid (Vitamin C) 500 mg GT DAILY [facility] Stop: 09/17/17 08:59 Last Admin: 08/04/17 09:32 Dose: 500 mg Bisacodyl (Dulcolax 10 Mg Supp) 10 mg RC DAILY PRN PRN Reason: constip Stop: 09/16/17 23:47 Calamine/Phenol (Calmoseptine) 1 appl TP QID PRN PRN Reason: Skin Irritation Stop: 09/24/17 09:35 Calamine/Phenol (Calmoseptine) 1 appl TP QID [facility] Stop: 09/24/17 12:59 Last Admin: 08/04/17 09:31 Dose: 1 appl Carvedilol (Coreg) 6.25 mg GT BID [facility] Stop: 09/17/17 08:59 Last Admin: 08/04/17 09:31 Dose: Not Given [place] Oil/[place] Balsam/Trypsin (Venelex) 1 appl TP DAILY [facility] Stop: 09/25/17 08:59 Last Admin: 08/04/17 09:31 Dose: 1 appl Chlorhexidine Gluconate (Peridex) 15 ml MM 0800,2000 [facility] Stop: 09/17/17 07:59 Last Admin: 08/04/17 08:30 Dose: 15 ml Docusate Sodium (Colace) 100 mg GT BID PRN PRN Reason: Constipation Famotidine (Pepcid) 20 mg GT Q12H [facility] Stop: 09/16/17 23:44 Last Admin: 08/04/17 11:36 Dose: 20 mg Guaifenesin (Robitussin) 200 mg PO Q4HR PRN PRN Reason: Cough or Congestion Stop: 09/16/17 23:54 Heparin Sodium (Porcine) (Heparin) 5,000 units SUBQ Q12HR [facility] Stop: 09/17/17 08:59 Last Admin: 08/04/17 09:33 Dose: 5,000 units Meropenem 1 gm/ Dextrose 100 mls @ 100 mls/hr IV Q12H [facility] Stop: 09/30/17 14:59 Last Infusion: 08/04/17 04:00 Dose: Infused Sodium Chloride (Nacl 0.9%) 1,000 mls @ 75 mls/hr IV .[id number] [facility] Stop: 10/01/17 15:29 Last Admin: 08/04/17 09:32 Dose: 75 mls/hr Insulin Aspart (Novolog) 0 units SUBQ Q6HR [facility] PRN Reason: Protocol Stop: 09/18/17 17:59 Last Admin: 08/04/17 11:41 Dose: Not Given Insulin Detemir (Levemir Insulin) 24 units SUBQ BID [facility] PRN Reason: Protocol Stop: 09/20/17 08:59 Last Admin: 08/04/17 09:28 Dose: Not Given Lactobacillus Rhamnosus (Culturelle 15b) 1 each PO DAILY [facility] Stop: 09/30/17 10:59 Last Admin: 08/04/17 09:31 Dose: 1 each Magnesium Hydroxide (Milk Of Magnesia) 30 ml GT HS PRN PRN Reason: Constipation Stop: 09/16/17 23:47 Metoclopramide HCl (Reglan) 10 mg GT Q8H [facility] Stop: 09/20/17 13:01 Last Admin: 08/04/17 12:32 Dose: 10 mg Miscellaneous (Vancomycin Iv Per Pharmacy) 1 ea MC PRN [facility] Stop: 09/16/17 23:44 Miscellaneous (Clinical Monitoring) 1 ea MC PRN PRN PRN Reason: RENAL DOSE ZOSYN Stop: 09/17/17 08:23 Miscellaneous (Probiotic Screen) 1 ea MC PRN PRN PRN Reason: PROTOCOL Stop: 09/17/17 10:14 Miscellaneous (Vte Chemical Prophylaxis Screen/ Admission) 1 ea MC PRN PRN PRN Reason: PROTOCOL Stop: 09/17/17 13:47 Morphine Sulfate (Morphine) 2 mg IVP Q4H PRN PRN Reason: Pain (Severe) Stop: 09/16/17 23:53 Last Admin: 07/24/17 23:27 Dose: 2 mg Ondansetron HCl (Zofran) 4 mg IV Q8H PRN PRN Reason: Nausea / Vomiting Stop: 09/16/17 23:54 Last Admin: 07/21/17 18:48 Dose: 4 mg Sodium Phosphate (Fleet Enema) 135 ml RC Q48H PRN PRN Reason: Constipation Stop: 09/16/17 23:47 Zinc Sulfate (Zinc Sulfate) 220 mg GT DAILY [facility] Stop: 09/17/17 08:59 Last Admin: 08/04/17 09:32 Dose: 220 mg General: Alert, No acute distress HEENT: Atraumatic, Mucous membr. moist/pink Neck: Supple, +2 carotid pulse wo bruit Cardiovascular: Regular rate, Normal S1, Normal S2 Lungs: Other (few rhonchi) Abdomen: Soft, Distended Extremities: no Edema Neurological: Sensation intact Skin: no Rash Psych/Mental Status: Mood NL - Procedures Procedures: Procedures Procedure Code Date RESPIRATORY VENTILATION, GREATER THAN 96 CONSECUTIVE HOURS [id number] 07/18/17 Assessment/Plan - Assessment Assessment: ADELA Right Hydronephrosis, hydroureter w/ partial obstruction since has good UOP, improvement Kidney fnc Gross hematuria 2nd to trauma better Sepsis 2nd to Cx UTI RFVD Anemia CD Ess Htn Type 2 DM Met Enceph C. diff colitis Hypokalemia Hypernatremia - Plan Plan: Lab - Result Diagrams 07/20/17 04:10 07/20/17 04:10 Current Medications Acetaminophen (Tylenol 650mg/20.3ml Suspension) 650 mg GT Q4H PRN PRN Reason: Pain or Fever >101 Stop: 09/16/17 23:47 Albuterol/Ipratropium (Duoneb Neb) 3 ml HHN Q6HRT [facility] Stop: 09/17/17 12:59 Last Admin: 07/20/17 13:39 Dose: 3 ml Albuterol/Ipratropium (Duoneb Neb) 3 ml HHN Q2HR PRN PRN Reason: Shortness of Breath Stop: 09/16/17 23:47 Ascorbic Acid (Vitamin C) 500 mg GT DAILY [facility] Stop: 09/17/17 08:59 Last Admin: 07/20/17 09:07 Dose: 500 mg Bisacodyl (Dulcolax 10 Mg Supp) 10 mg RC DAILY PRN PRN Reason: constip Stop: 09/16/17 23:47 Carvedilol (Coreg) 3.125 mg GT BID [facility] Stop: 09/17/17 08:59 Last Admin: 07/20/17 16:43 Dose: 3.125 mg Chlorhexidine Gluconate (Peridex) 15 ml MM 08,1999 [facility] Stop: 09/17/17 07:59 Last Admin: 07/20/17 07:56 Dose: 15 ml Docusate Sodium (Colace) 100 mg GT BID PRN PRN Reason: Constipation Famotidine (Pepcid) 20 mg GT Q12H [facility] Stop: 09/16/17 23:44 Last Admin: 07/20/17 11:56 Dose: 20 mg Guaifenesin (Robitussin) 200 mg PO Q4HR PRN PRN Reason: Cough or Congestion Stop: 09/16/17 23:54 Heparin Sodium (Porcine) (Heparin) 5,000 units SUBQ Q12HR [facility] Stop: 09/17/17 08:59 Last Admin: 07/20/17 09:09 Dose: 5,000 units Piperacillin Sod/Tazobactam (Sod 2.25 gm/ Sodium Chloride) 100 mls @ 100 mls/ hr IV Q8H [facility] Stop: 09/17/17 08:59 Last Admin: 07/20/17 16:43 Dose: 100 mls/hr Vancomycin HCl 1 gm/ Dextrose 250 mls @ 165 mls/hr IV Q36H [facility] Stop: 09/18/17 01:59 Last Infusion: 07/20/17 04:00 Dose: Infused Sodium Chloride (Nacl 0.9%) 1,000 mls @ 100 mls/hr IV .Q10H [facility] Stop: 09/16/17 23:44 Last Admin: 07/20/17 02:00 Dose: 100 mls/hr Insulin Aspart (Novolog) 0 units SUBQ Q6HR [facility] PRN Reason: Protocol Stop: 09/18/17 17:59 Insulin Detemir (Levemir Insulin) 18 units SUBQ BID [facility] PRN Reason: Protocol Stop: 09/18/17 08:59 Last Admin: 07/20/17 16:44 Dose: 18 units Lactobacillus Rhamnosus (Culturelle) 1 each PO DAILY [facility] Stop: 09/18/17 08:59 Last Admin: 07/20/17 09:07 Dose: 1 each Magnesium Hydroxide (Milk Of Magnesia) 30 ml GT HS PRN PRN Reason: Constipation Stop: 09/16/17 23:47 Metoclopramide HCl (Reglan) 5 mg GT Q8H [facility] Stop: 09/16/17 23:44 Last Admin: 12/20/17 15:45 Dose: Not Given Miscellaneous (Vancomycin Iv Per Pharmacy) 1 ea MC PRN [facility] Stop: 09/16/17 23:44 Miscellaneous (Clinical Monitoring) 1 ea MC PRN PRN PRN Reason: RENAL DOSE ZOSYN Stop: 09/17/17 08:23 Miscellaneous (Probiotic Screen) 1 ea MC PRN PRN PRN Reason: PROTOCOL Stop: 09/17/17 10:14 Miscellaneous (Vte Chemical Prophylaxis Screen/ Admission) 1 ea MC PRN PRN PRN Reason: PROTOCOL Stop: 09/17/17 13:47 Morphine Sulfate (Morphine) 2 mg IVP Q4H PRN PRN Reason: Pain (Severe) Stop: 09/16/17 23:53 Ondansetron HCl (Zofran) 4 mg IV Q8H PRN PRN Reason: Nausea / Vomiting Stop: 09/16/17 23:54 Sodium Phosphate (Fleet Enema) 135 ml RC Q48H PRN PRN Reason: Constipation Stop: 09/16/17 23:47 Vancomycin HCl (Vancomycin Oral) 250 mg GT Q6HR [facility] Stop: 09/18/17 17:59 Last Admin: 07/20/17 17:54 Dose: 250 mg Zinc Sulfate (Zinc Sulfate) 220 mg GT DAILY [facility] Stop: 09/17/17 08:59 Last Admin: 07/20/17 09:07 Dose: 220 mg BUN up to 49 UOP still adequate Na up to 132 K elevation iatrogenic no further hematuria CT pelvis revealed right hydronephrosis/ureter Increase IVF 70 ml/hr since now in negative balance w/ clear CXR f/u elelctrolytes, cbc GT feed 70 ml/hr Nutritional Asmnt/Malnutr-PDOC - Dietary Evaluation Malnutrition Findings (Please click <Entered> for more info): Nutritional Asmnt/Malnutrition Start: 07/19/17 17: 24 Text: Status: Complete Freq: Document 07/19/17 17:25 JEIMY (Rec: 07/19/17 17:43 JEIMY [id number]) Nutritional Asmnt/Malnutrition Patient General Information Nutritional Screening High Risk Consult Diagnosis Sepsis, UTI Pertinent Medical Hx/Surgical Hx HTN, DM, CAD, CHF, chronic resperatory failure, anemia, PEG/Gtube, tracheostomy Subjective Information Consult received for elevated BG. Pt seen lying in bed, on vent, non verbal comminication noted. Not able to obtain nutrition hx. Spoke with RN, no nutrition plan at this time . Current Diet Order/ Nutrition Support NPO Pertinent Medications Vitamin C, novolog, cultrelle, reglan, vancomycin, , piperacillin, Nacl 0.9%, Zinc Pertinent Labs 07/19 Na 132, K 5.3, Cl 97L, BUN 137, Cr 2.7, Glu 353, POC 324-394, A1C 6.2 Nutritional Hx/Data Height 1.57 m Height (Calculated Centimeters) 157.5 Current Weight (lbs) 80.83 kg Weight (Calculated Kilograms) 80.8 Weight (Calculated Grams) 23533.2 [place] Body Weight 110 % [place] Body Weight 162 Body Mass Index (BMI) 32.5 Weight Status Obese GI Symptoms GI Symptoms None Last BM none Usual diet at home Glucerna 1.5 60ml/hr x 20hr daily at [facility] Skin Integrity/Comment: decubitus ulceration to sacrum Estimated Nutritional Goals BEE in Kcals: Adj wt of IBW Calories/Kcals/Kg 30-35 Kcals Calculated Protein: Adj wt of IBW Protein g/k.2-1.5 Protein Calculated 69-87 Fluid: ml Nutritional Problem 2. Problem Problem increased nutrition needs ( calorie and protein) Etiology increased metabolic demand for healing Signs/Symptoms: sepsis 1. Problem Problem altered nutrition related lab values Etiology hx of DM, acute renal insufficiency Signs/Symptoms: BUN 137, Cr 2.7, Glu 353, POC 324-394, A1C 6.2 Malnutrition Alert Protein-Calorie Malnutrition N/A Is there a minimum of two criteria No selected? Query Text:Check all the applicable criteria. A minimum of two criteria are recommended for diagnosis of either severe or non-severe malnutrition. Intervention/Recommendation Comments 1. Monitor NPO status. 2. If enteral feeding needed, recommend to start Diabetisource AC at 30ml/hr continuous. Increased to goal rate of 60ml/hr continuous as tolerated. This will provide 1728kcal, 86g protein and 1179ml water, meeting 100% of nutritional needs. 3. Monitor wt, labs and skin integrity 4. F/U as high risk in 2-3 days, 07/21-07/22 Expected Outcomes/Goals Expected Outcomes/Goals 1. Pt to meet at least 75% of nutritional needs in 2-3 days 2. Wt stability, skin to remain intact, labs to improve .
[2017-08-05] MEDS: Albuterol/Ipratropium Neb 3 ML AERS HHN SCH ×4 (00:37→19:08)
[2017-08-05] MEDS: Sodium Chloride 0.9% 1,000 ML IV SCH ×2 (00:54→17:53)
[2017-08-05] MEDS: INSULIN ASPART, RECOMBINANT 100 UNITS/ML SUBQ SCH ×4 (00:54→19:16)
--- NOTE | 2017-08-05 01:22 | Progress Notes ---
DATE: 08/04/2017 UROLOGY PROGRESS NOTE SUBJECTIVE: The patient remains clinically stable, but the septic focus has not been diagnosed and treated most likely. A CT scan done yesterday shows moderate to severe right-sided hydronephrosis which is persisting with a tortuous upper ureter indicative of infection in this kidney that is not drained. A percutaneous nephrostomy seems to be in very difficult proposition given that she is on the ventilator and has a tracheostomy and requires a prone position for the procedure. The other option is definitely cystoscopy and stent insertion, which is only a temporizing tool and will require frequent changes in the future. OBJECTIVE: VITAL SIGNS: Today on exam, she is afebrile at 96.6, heart rate 68, blood pressure 137/45. Tolerating G-tube feeds. ABDOMEN: Soft, mildly distended, but nontender. EXTREMITIES: No edema. Ocampo catheter draining well. LABORATORY DATA: Hemoglobin drifting down to 7.9; white count going down further to 11.4, but with 4 bands; and creatinine improved to 1.1. Normal electrolytes. CT scan as described earlier. IMPRESSION: Persistent right hydronephrosis, most likely source of infection. Percutaneous or endoscopic drainage is an option. I discussed this with Dr. Dunbar at great length. He will talk with the family members, especially her daughter who is in charge, but is not present here today. If they are insistent and we will proceed with the attempt to place a stent. We will try the other options until then of being conservative in this very sick patient with multiple comorbidities. [facility]# [id number]
[2017-08-05 05:40] LABS: % BASOPHILS 0.5 % (0.0-2.0); % EOSINOPHILS 2.4 % (0.0-5.0); % LYMPHOCYTES 19.4 % (20.0-50.0); % MONOCYTES 6.6 % (2.0-10.0); % NEUTROPHILS 71.1 % (40.0-80.0); BASOPHILE ABSOLUTE 0.1 Th/cumm (0-0.2); EOSINOPHILE ABSOLUTE 0.3 Th/cmm (0.1-0.4); HEMATOCRIT 23.5 % (41.0-60); LYMPHOCYTE ABSOLUTE 2.3 Th/cmm (1.5-3.0); MEAN CELL VOLUME 85.4 fl (81-100); MEAN CORPUSCULAR HEMOGLOBIN 29.1 pg (27.0-31.0); MEAN CORPUSCULAR HGB CONC 34.1 pg (28.0-36.0); MEAN PLATELET VOLUME 10.5 fl; MONOCYTE ABSOLUTE 0.8 Th/cmm (0.3-1.0); NEUTROPHILE ABSOLUTE 8.6 Th/cmm (1.8-8.0); PLATELET COUNT 365 Th/cmm (150-400); RED BLOOD COUNT 2.75 Mil/cmm (3.80-5.10); RED CELL DISTRIBUTION WIDTH 14.8 % (11.5-20.0)
[2017-08-05 05:43] LABS: WHITE BLOOD COUNT 12.1 Th/cmm (4.8-10.8)
[2017-08-05 06:02] LABS: BUN - UREA NITROGEN 51 mg/dL (7-25); CALCIUM SERUM 8.3 mg/dL (8.6-10.3); CARBON DIOXIDE 23.3 mEq/L (21.0-31.0); CHLORIDE 106 mEq/L (98-107); CREATININE - SERUM 1.1 mg/dL (0.6-1.2); GFR AFRICAN-AMERICAN > 60.0 ml/min (>90); GFR NON AFRICAN-AMERICAN 53.5 ml/min; GLUCOSE 135 mg/dL (70-105); POTASSIUM SERUM 4.3 mEq/L (3.5-5.1); SODIUM SERUM 135 mEq/L (136-145)
[2017-08-05] MEDS: Chlorhexidine Gluconate 0.12% 15mL Mouthwash MM SCH ×2 (08:00→21:04)
[2017-08-05] MEDS ORDERED: Albuterol/Ipratropium Neb 3 ML AERS HHN ONE (08:22)
[2017-08-05] MEDS: Venelex 60gm Tube TP SCH (09:00)
[2017-08-05] MEDS: Menthol/Zinc Oxide Oint 113gm Tube TP SCH ×4 (09:00→21:10)
[2017-08-05] MEDS: Multivitamin w/ Minerals Tab GT SCH (09:49)
[2017-08-05] MEDS: Lactobacillus Rhamnosus GG 15 Billion CFU CAP.SPRINK PO SCH (09:49)
[2017-08-05] MEDS: Insulin Detemir 100 units/mL 10mL Vial SUBQ SCH ×2 (09:50→17:52)
--- NOTE | 2017-08-05 11:55 | Internal Medicine Prog Note ---
Internal Medicine Subjective - Subjective Service Date: 08/05/17 Patient seen and examined:: with staff Patient is:: awake, non-verbal, non-interactive, in bed, stares blankly Patient Complaints of:: congestion, bloated Per staff patient has:: tolerating meds Internal Medicine Objective - Results Result Diagrams: 08/05/17 05:10 08/05/17 05:10 Recent Labs: Laboratory Last Values WBC 12.1 Th/cmm (4.8-10.8) H 08/05/17 05:10 RBC 2.75 Mil/cmm (3.80-5.10) L 08/05/17 05:10 Hgb 8.0 gm/dL (12-16) L 08/05/17 05:10 Hct 23.5 % (41.0-60) L 08/05/17 05:10 MCV 85.4 fl (81-100) 08/05/17 05:10 MCH 29.1 pg (27.0-31.0) 08/05/17 05:10 MCHC Differential 34.1 pg (28.0-36.0) 08/05/17 05:10 RDW 14.8 % (11.5-20.0) 08/05/17 05:10 Plt Count 365 Th/cmm (150-400) 08/05/17 05:10 MPV 10.5 fl 08/05/17 05:10 Neutrophils % 71.1 % (40.0-80.0) 08/05/17 05:10 Band Neutrophils % 4 % (0-10) 08/04/17 04:45 Lymphocytes % 19.4 % (20.0-50.0) L 08/05/17 05:10 Monocytes % 6.6 % (2.0-10.0) 08/05/17 05:10 Eosinophils % 2.4 % (0.0-5.0) 08/05/17 05:10 Basophils % 0.5 % (0.0-2.0) 08/05/17 05:10 Neutrophils (Manual) 69 % (40-80) 08/04/17 04:45 Lymphocytes 24 % (20-50) 08/04/17 04:45 Monocytes 3 % (2-10) 08/04/17 04:45 Eosinophils 1 % (0-5) 08/02/17 06:30 Hypochromia 1+ 07/30/17 04:30 Platelet Estimate ADEQUATE (NORMAL) 08/04/17 04:45 Polychromasia 1+ 07/30/17 04:30 Smear Path Review YES 07/18/17 22:15 Eos Smear Source URINE 07/19/17 22:30 Eos Smear Total Cells NONE SEEN (NONE SEEN) 07/19/17 22:30 PT 10.4 SECONDS (9.5-11.5) 07/30/17 15:12 INR 1.00 (0.5-1.4) 07/30/17 15:12 PTT (Actin FS) 27.5 SECONDS (26.0-38.0) 07/30/17 15:12 Specimen Source Arterial 07/25/17 14:15 Sample Site RIGHT BRACHIAL 07/25/17 14:15 pH 7.48 (7.35-7.45) H 07/25/17 14:15 pCO2 33.0 mmHg (35.0-45.0) L 07/25/17 14:15 pO2 144.0 mmHg (80.0-100.0) H 07/25/17 14:15 HCO3 26.1 mEq/L (20.0-26.0) H 07/25/17 14:15 Base Excess 1.5 mEq/L (-3.0-3.0) 07/25/17 14:15 O2 Saturation 99.0 % (92.0-100.0) 07/25/17 14:15 Cricket Test Positive 07/25/17 14:15 Vent Rate 12 07/25/17 14:15 Inspired O2 35 07/25/17 14:15 Tidal Volume 500 07/25/17 14:15 PEEP 5 07/25/17 14:15 Pressure (ins/psv/peep) N/A 07/25/17 14:15 Critical Value HSTEHNO 07/25/17 14:15 Sodium 135 mEq/L (136-145) L 08/05/17 05:10 Potassium 4.3 mEq/L (3.5-5.1) 08/05/17 05:10 Chloride 106 mEq/L (98-107) 08/05/17 05:10 Carbon Dioxide 23.3 mEq/L (21.0-31.0) 08/05/17 05:10 Anion Gap 10.0 (7.0-16.0) 08/05/17 05:10 BUN 51 mg/dL (7-25) H 08/05/17 05:10 Creatinine 1.1 mg/dL (0.6-1.2) 08/05/17 05:10 Est GFR ( Amer) > 60.0 ml/min (>90) 08/05/17 05:10 Est GFR (Non-Af Amer) 53.5 ml/min 08/05/17 05:10 BUN/Creatinine Ratio 46.4 08/05/17 05:10 Glucose 135 mg/dL (70-105) H 08/05/17 05:10 POC Glucose 118 MG/DL (70 - 105) H 08/05/17 00:53 Hemoglobin A1c % 6.2 % (4.0-6.0) H 07/18/17 23:30 Plasma/Ser Osmolality 344 mOsmol/kg (280-301) H 07/19/17 23:30 Whole Bld Lactic Acid 0.61 mmol/L (0.60-1.99) 07/20/17 04:10 Uric Acid 9.5 mg/dL (2.3-6.6) H 07/20/17 04:10 Calcium 8.3 mg/dL (8.6-10.3) L 08/05/17 05:10 Phosphorus 4.5 mg/dL (2.5-5.0) 07/20/17 04:10 Magnesium 1.8 mg/dL (1.9-2.7) L 07/28/17 05:00 Iron 36 ug/dL (27-139) 07/30/17 04:30 TIBC 160 ug/dL (250-450) L 07/30/17 04:30 Iron Saturation 23 % (15-55) 07/30/17 04:30 Unsaturated IBC 124 ug/dL (118-369) 07/30/17 04:30 Total Bilirubin 0.3 mg/dL (0.3-1.0) 08/01/17 05:55 AST 9 U/L (13-39) L 08/01/17 05:55 ALT 11 U/L (7-52) 08/01/17 05:55 Alkaline Phosphatase 111 U/L (34-104) H 08/01/17 05:55 Ammonia 32 umol/L (16-53) 08/04/17 04:45 Creatine Kinase 26 U/L (30-223) L 07/18/17 22:15 Troponin I 0.27 ng/mL (0.01-0.05) H* 07/18/17 22:15 B-Natriuretic Peptide 335.0 pg/mL (5.0-100.0) H 08/04/17 04:45 Total Protein 6.4 gm/dL (6.0-8.3) 08/01/17 05:55 Albumin 2.9 gm/dL (3.7-5.3) L 08/01/17 05:55 Globulin 3.5 gm/dL 08/01/17 05:55 Albumin/Globulin Ratio 0.8 (1.0-1.8) L 08/01/17 05:55 Vitamin B12 >1999 pg/mL (232-1245) H 07/30/17 04:30 Folic Acid >20.0 ng/mL (>3.0) 07/30/17 04:30 TSH 2.30 uIU/ml (0.34-5.60) 07/19/17 04:15 Urine Source [place] 07/18/17 21:30 Urine Color RED 07/18/17 21:30 Urine Clarity CLOUDY (CLEAR) H 07/18/17 21:30 Urine pH 7.5 (4.6 - 8.0) 07/18/17 21:30 Ur Specific [place] 1.025 (1.005-1.030) 07/18/17 21:30 Urine Protein >=300 mg/dL (NEGATIVE) 07/18/17 21:30 Urine Glucose (UA) NEGATIVE mg/dL (NEGATIVE) 07/18/17 21:30 Urine Ketones NEGATIVE mg/dL (NEGATIVE) 07/18/17 21:30 Urine Blood LARGE (NEGATIVE) H 07/18/17 21:30 Urine Nitrate NEGATIVE (NEGATIVE) 07/18/17 21:30 Urine Bilirubin NEGATIVE (NEGATIVE) 07/18/17 21:30 Urine Urobilinogen 0.2 E.U./dL (0.2 - 1.0) 07/18/17 21:30 Ur Leukocyte Esterase SMALL (NEGATIVE) H 07/18/17 21:30 Urine RBC 50-100 /hpf (0-5) H 07/18/17 21:30 Urine WBC 6-10 /hpf (0-5) H 07/18/17 21:30 Ur Epithelial Cells FEW /lpf (FEW) 07/18/17 21:30 Urine Bacteria MANY /hpf (NONE SEEN) 07/18/17 21:30 Ur Random Sodium 28 mmol/L 07/19/17 22:30 Urine Creatinine 26.3 mg/dl (Not Estab.) 07/19/17 22:30 Urine Microalbumin 2398.5 ug/mL (Not Estab.) 07/19/17 22:30 Microalb/Creat Ratio 9119.8 07/19/17 22:30 Stool Occult Blood NEGATIVE (NEGATIVE) 07/24/17 03:37 Vancomycin Trough 30.5 ug/mL (10-20) H 08/03/17 08:08 Random Vancomycin 18.2 ug/mL (5.0-40.0) 08/05/17 05:10 Blood Type O NEGATIVE 07/20/17 08:15 Antibody Screen NEGATIVE 07/20/17 08:15 - Physical Exam Vitals and I&O: Vital Signs Temp 98 F 08/05/17 10:00 Pulse 62 08/05/17 10:07 Resp 12 08/05/17 10:00 BP 116/47 08/05/17 10:07 Pulse Ox 100 08/05/17 10:00 Intake & Output 08/04/17 08/05/17 08/05/17 18:59 06:59 18:59 Intake Total 1552.5 2037.5 Output Total 1700 1000 Balance -147.5 1037.5 Weight (lbs) 188 lb 1 oz 185 lb 197 lb Intake: Intake, IV Amount 212.5 947.5 Meropenem 1 gm In 100 100 Dextrose 5% 100 ml @ 100 mls/hr IV Q12H [facility] Rx#: [id number] Sodium Chloride 0.9% 1, 112.5 847.5 000 ml @ 75 mls/hr IV . [id number] [facility] Rx#:[id number] Tube Feeding 840 1090 Other 500 Output: Urine 1600 900 Stool 100 100 Other: Stool Characteristics Liquid Liquid Liquid Brown Brown Active Medications: Current Medications Acetaminophen (Tylenol 650mg/20.3ml Suspension) 650 mg GT Q4H PRN PRN Reason: Pain or Fever >101 Stop: 09/16/17 23:47 Last Admin: 07/22/17 00:35 Dose: 650 mg Albuterol/Ipratropium (Duoneb Neb) 3 ml HHN Q6HRT [facility] Stop: 09/17/17 12:59 Last Admin: 08/05/17 08:23 Dose: 3 ml Albuterol/Ipratropium (Duoneb Neb) 3 ml HHN Q2HR PRN PRN Reason: Shortness of Breath Stop: 09/16/17 23:47 Ascorbic Acid (Vitamin C) 500 mg GT DAILY [facility] Stop: 09/17/17 08:59 Last Admin: 08/05/17 09:49 Dose: 500 mg Bisacodyl (Dulcolax 10 Mg Supp) 10 mg RC DAILY PRN PRN Reason: constip Stop: 09/16/17 23:47 Calamine/Phenol (Calmoseptine) 1 appl TP QID PRN PRN Reason: Skin Irritation Stop: 09/24/17 09:35 Calamine/Phenol (Calmoseptine) 1 appl TP QID [facility] Stop: 09/24/17 12:59 Last Admin: 08/05/17 09:00 Dose: 1 appl Carvedilol (Coreg) 6.25 mg GT BID [facility] Stop: 09/17/17 08:59 Last Admin: 08/05/17 10:07 Dose: Not Given [place] Oil/[place] Balsam/Trypsin (Venelex) 1 appl TP DAILY [facility] Stop: 09/25/17 08:59 Last Admin: 08/05/17 09:00 Dose: 1 appl Chlorhexidine Gluconate (Peridex) 15 ml MM 0800,2000 [facility] Stop: 09/17/17 07:59 Last Admin: 08/05/17 08:00 Dose: 15 ml Docusate Sodium (Colace) 100 mg GT BID PRN PRN Reason: Constipation Famotidine (Pepcid) 20 mg GT Q12H [facility] Stop: 09/16/17 23:44 Last Admin: 08/05/17 00:05 Dose: 20 mg Guaifenesin (Robitussin) 200 mg PO Q4HR PRN PRN Reason: Cough or Congestion Stop: 09/16/17 23:54 Heparin Sodium (Porcine) (Heparin) 5,000 units SUBQ Q12HR [facility] Stop: 09/17/17 08:59 Last Admin: 08/05/17 09:49 Dose: 5,000 units Meropenem 1 gm/ Dextrose 100 mls @ 100 mls/hr IV Q12H [facility] Stop: 09/30/17 14:59 Last Infusion: 08/05/17 04:10 Dose: Infused Sodium Chloride (Nacl 0.9%) 1,000 mls @ 75 mls/hr IV .[id number] [facility] Stop: 10/01/17 15:29 Last Admin: 08/05/17 00:54 Dose: 75 mls/hr Vancomycin HCl 750 mg/ Sodium (Chloride) 250 mls @ 250 mls/hr IV Q48H [facility] Stop: 10/04/17 20:59 Insulin Aspart (Novolog) 0 units SUBQ Q6HR [facility] PRN Reason: Protocol Stop: 09/18/17 17:59 Last Admin: 08/05/17 06:33 Dose: Not Given Insulin Detemir (Levemir Insulin) 24 units SUBQ BID [facility] PRN Reason: Protocol Stop: 09/20/17 08:59 Last Admin: 08/05/17 09:50 Dose: 24 units Lactobacillus Rhamnosus (Culturelle 15b) 1 each PO DAILY [facility] Stop: 09/30/17 10:59 Last Admin: 08/05/17 09:49 Dose: 1 each Magnesium Hydroxide (Milk Of Magnesia) 30 ml GT HS PRN PRN Reason: Constipation Stop: 09/16/17 23:47 Metoclopramide HCl (Reglan) 10 mg GT Q8H [facility] Stop: 09/20/17 13:01 Last Admin: 08/05/17 06:31 Dose: 10 mg Miscellaneous (Vancomycin Iv Per Pharmacy) 1 ea MC PRN [facility] Stop: 09/16/17 23:44 Miscellaneous (Clinical Monitoring) 1 ea MC PRN PRN PRN Reason: RENAL DOSE [place] Stop: 09/17/17 08:23 Miscellaneous (Probiotic Screen) 1 ea MC PRN PRN PRN Reason: PROTOCOL Stop: 09/17/17 10:14 Miscellaneous (Vte Chemical Prophylaxis Screen/ Admission) 1 ea MC PRN PRN PRN Reason: PROTOCOL Stop: 09/17/17 13:47 Morphine Sulfate (Morphine) 2 mg IVP Q4H PRN PRN Reason: Pain (Severe) Stop: 09/16/17 23:53 Last Admin: 07/24/17 23:27 Dose: 2 mg Ondansetron HCl (Zofran) 4 mg IV Q8H PRN PRN Reason: Nausea / Vomiting Stop: 09/16/17 23:54 Last Admin: 07/21/17 18:48 Dose: 4 mg Sodium Phosphate (Fleet Enema) 135 ml RC Q48H PRN PRN Reason: Constipation Stop: 09/16/17 23:47 Zinc Sulfate (Zinc Sulfate) 220 mg GT DAILY [facility] Stop: 09/17/17 08:59 Last Admin: 08/05/17 09:49 Dose: 220 mg General: weak, congested, demented, obtunded HEENT: NC/AT, PERRLA Neck: Supple, + trach Lungs: congested, rales, ronchi Cardiovascular: RRR, without murmur Abdomen: soft, non-tender, non-distended, +GT, positive bowel sound Extremities: excoriation, ulcers stage 3 Neurological: bedbound, spastic - Procedures Procedures: Procedures Procedure Code Date RESPIRATORY VENTILATION, GREATER THAN 96 CONSECUTIVE HOURS [id number] 07/18/17 Internal Medicine Assmt/Plan - Assessment Assessment: sepsis cdiff chronic respiratory failure VDRF leukocytosis hematuria-improved htn dm2 cad chf anemia tracheostomy status hypokalemia acute renal insufficiency elevated troponin mild protein calorie malnutrition acute uti - Plan Plan: contact isolation continue with ivabx renal follow up monitor h/h follow up labs in am vent support continue current plan of care Nutritional Asmnt/Malnutr-PDOC - Dietary Evaluation Malnutrition Findings (Please click <Entered> for more info): Nutritional Asmnt/Malnutrition Start: 07/19/17 17: 24 Text: Status: Complete Freq: Document 07/19/17 17:25 LCHENG (Rec: 07/19/17 17:43 LCHENG [email or web address]) Nutritional Asmnt/Malnutrition Patient General Information Nutritional Screening High Risk Consult Diagnosis Sepsis, UTI Pertinent Medical Hx/Surgical Hx HTN, DM, CAD, CHF, chronic resperatory failure, anemia, PEG/Gtube, tracheostomy Subjective Information Consult received for elevated BG. Pt seen lying in bed, on vent, non verbal comminication noted. Not able to obtain nutrition hx. Spoke with RN, no nutrition plan at this time . Current Diet Order/ Nutrition Support NPO Pertinent Medications Vitamin C, novolog, cultrelle, reglan, vancomycin, , piperacillin, Nacl 0.9%, Zinc Pertinent Labs 07/19 Na 132, K 5.3, Cl 97L, BUN 137, Cr 2.7, Glu 353, POC 324-394, A1C 6.2 Nutritional Hx/Data Height 5 ft 2 in Height (Calculated Centimeters) 157.5 Current Weight (lbs) 178 lb 3.2 oz Weight (Calculated Kilograms) 80.8 Weight (Calculated Grams) 98781.2 [place] Body Weight 110 % [place] Body Weight 162 Body Mass Index (BMI) 32.5 Weight Status Obese GI Symptoms GI Symptoms None Last BM none Usual diet at home Glucerna 1.5 60ml/hr x 20hr daily at [facility] Skin Integrity/Comment: decubitus ulceration to sacrum Estimated Nutritional Goals BEE in Kcals: Adj wt of IBW Calories/Kcals/Kg 30-35 Kcals Calculated Protein: Adj wt of IBW Protein g/k.2-1.5 Protein Calculated 69-87 Fluid: ml Nutritional Problem 2. Problem Problem increased nutrition needs ( calorie and protein) Etiology increased metabolic demand for healing Signs/Symptoms: sepsis 1. Problem Problem altered nutrition related lab values Etiology hx of DM, acute renal insufficiency Signs/Symptoms: BUN 137, Cr 2.7, Glu 353, POC 324-394, A1C 6.2 Malnutrition Alert Protein-Calorie Malnutrition N/A Is there a minimum of two criteria No selected? Query Text:Check all the applicable criteria. A minimum of two criteria are recommended for diagnosis of either severe or non-severe malnutrition. Intervention/Recommendation Comments 1. Monitor NPO status. 2. If enteral feeding needed, recommend to start Diabetisource AC at 30ml/hr continuous. Increased to goal rate of 60ml/hr continuous as tolerated. This will provide 1728kcal, 86g protein and 1179ml water, meeting 100% of nutritional needs. 3. Monitor wt, labs and skin integrity 4. F/U as high risk in 2-3 days, 07/21-07/22 Expected Outcomes/Goals Expected Outcomes/Goals 1. Pt to meet at least 75% of nutritional needs in 2-3 days 2. Wt stability, skin to remain intact, labs to improve .
--- NOTE | 2017-08-05 14:56 | General Progress Note ---
Subjective - Review of Systems Service Date: 08/05/17 Subjective: awake, comfortable, on vent Objective - Results Result Diagrams: 08/05/17 05:10 08/05/17 05:10 Recent Labs: Laboratory Last Values WBC 12.1 Th/cmm (4.8-10.8) H 08/05/17 05:10 RBC 2.75 Mil/cmm (3.80-5.10) L 08/05/17 05:10 Hgb 8.0 gm/dL (12-16) L 08/05/17 05:10 Hct 23.5 % (41.0-60) L 08/05/17 05:10 MCV 85.4 fl (81-100) 08/05/17 05:10 MCH 29.1 pg (27.0-31.0) 08/05/17 05:10 MCHC Differential 34.1 pg (28.0-36.0) 08/05/17 05:10 RDW 14.8 % (11.5-20.0) 08/05/17 05:10 Plt Count 365 Th/cmm (150-400) 08/05/17 05:10 MPV 10.5 fl 08/05/17 05:10 Neutrophils % 71.1 % (40.0-80.0) 08/05/17 05:10 Band Neutrophils % 4 % (0-10) 08/04/17 04:45 Lymphocytes % 19.4 % (20.0-50.0) L 08/05/17 05:10 Monocytes % 6.6 % (2.0-10.0) 08/05/17 05:10 Eosinophils % 2.4 % (0.0-5.0) 08/05/17 05:10 Basophils % 0.5 % (0.0-2.0) 08/05/17 05:10 Neutrophils (Manual) 69 % (40-80) 08/04/17 04:45 Lymphocytes 24 % (20-50) 08/04/17 04:45 Monocytes 3 % (2-10) 08/04/17 04:45 Eosinophils 1 % (0-5) 08/02/17 06:30 Hypochromia 1+ 07/30/17 04:30 Platelet Estimate ADEQUATE (NORMAL) 08/04/17 04:45 Polychromasia 1+ 07/30/17 04:30 Smear Path Review YES 07/18/17 22:15 Eos Smear Source URINE 07/19/17 22:30 Eos Smear Total Cells NONE SEEN (NONE SEEN) 07/19/17 22:30 PT 10.4 SECONDS (9.5-11.5) 07/30/17 15:12 INR 1.00 (0.5-1.4) 07/30/17 15:12 PTT (Actin FS) 27.5 SECONDS (26.0-38.0) 07/30/17 15:12 Specimen Source Arterial 07/25/17 14:15 Sample Site RIGHT BRACHIAL 07/25/17 14:15 pH 7.48 (7.35-7.45) H 07/25/17 14:15 pCO2 33.0 mmHg (35.0-45.0) L 07/25/17 14:15 pO2 144.0 mmHg (80.0-100.0) H 07/25/17 14:15 HCO3 26.1 mEq/L (20.0-26.0) H 07/25/17 14:15 Base Excess 1.5 mEq/L (-3.0-3.0) 07/25/17 14:15 O2 Saturation 99.0 % (92.0-100.0) 07/25/17 14:15 Cricket Test Positive 07/25/17 14:15 Vent Rate 12 07/25/17 14:15 Inspired O2 35 07/25/17 14:15 Tidal Volume 500 07/25/17 14:15 PEEP 5 07/25/17 14:15 Pressure (ins/psv/peep) N/A 07/25/17 14:15 Critical Value HSTEHNO 07/25/17 14:15 Sodium 135 mEq/L (136-145) L 08/05/17 05:10 Potassium 4.3 mEq/L (3.5-5.1) 08/05/17 05:10 Chloride 106 mEq/L (98-107) 08/05/17 05:10 Carbon Dioxide 23.3 mEq/L (21.0-31.0) 08/05/17 05:10 Anion Gap 10.0 (7.0-16.0) 08/05/17 05:10 BUN 51 mg/dL (7-25) H 08/05/17 05:10 Creatinine 1.1 mg/dL (0.6-1.2) 08/05/17 05:10 Est GFR ( Amer) > 60.0 ml/min (>90) 08/05/17 05:10 Est GFR (Non-Af Amer) 53.5 ml/min 08/05/17 05:10 BUN/Creatinine Ratio 46.4 08/05/17 05:10 Glucose 135 mg/dL (70-105) H 08/05/17 05:10 POC Glucose 118 MG/DL (70 - 105) H 08/05/17 00:53 Hemoglobin A1c % 6.2 % (4.0-6.0) H 07/18/17 23:30 Plasma/Ser Osmolality 344 mOsmol/kg (280-301) H 07/19/17 23:30 Whole Bld Lactic Acid 0.61 mmol/L (0.60-1.99) 07/20/17 04:10 Uric Acid 9.5 mg/dL (2.3-6.6) H 07/20/17 04:10 Calcium 8.3 mg/dL (8.6-10.3) L 08/05/17 05:10 Phosphorus 4.5 mg/dL (2.5-5.0) 07/20/17 04:10 Magnesium 1.8 mg/dL (1.9-2.7) L 07/28/17 05:00 Iron 36 ug/dL (27-139) 07/30/17 04:30 TIBC 160 ug/dL (250-450) L 07/30/17 04:30 Iron Saturation 23 % (15-55) 07/30/17 04:30 Unsaturated IBC 124 ug/dL (118-369) 07/30/17 04:30 Total Bilirubin 0.3 mg/dL (0.3-1.0) 08/01/17 05:55 AST 9 U/L (13-39) L 08/01/17 05:55 ALT 11 U/L (7-52) 08/01/17 05:55 Alkaline Phosphatase 111 U/L (34-104) H 08/01/17 05:55 Ammonia 32 umol/L (16-53) 08/04/17 04:45 Creatine Kinase 26 U/L (30-223) L 07/18/17 22:15 Troponin I 0.27 ng/mL (0.01-0.05) H* 07/18/17 22:15 B-Natriuretic Peptide 335.0 pg/mL (5.0-100.0) H 08/04/17 04:45 Total Protein 6.4 gm/dL (6.0-8.3) 08/01/17 05:55 Albumin 2.9 gm/dL (3.7-5.3) L 08/01/17 05:55 Globulin 3.5 gm/dL 08/01/17 05:55 Albumin/Globulin Ratio 0.8 (1.0-1.8) L 08/01/17 05:55 Vitamin B12 >1999 pg/mL (232-1245) H 07/30/17 04:30 Folic Acid >20.0 ng/mL (>3.0) 07/30/17 04:30 TSH 2.30 uIU/ml (0.34-5.60) 07/19/17 04:15 Urine Source [place] 07/18/17 21:30 Urine Color RED 07/18/17 21:30 Urine Clarity CLOUDY (CLEAR) H 07/18/17 21:30 Urine pH 7.5 (4.6 - 8.0) 07/18/17 21:30 Ur Specific [place] 1.025 (1.005-1.030) 07/18/17 21:30 Urine Protein >=300 mg/dL (NEGATIVE) 07/18/17 21:30 Urine Glucose (UA) NEGATIVE mg/dL (NEGATIVE) 07/18/17 21:30 Urine Ketones NEGATIVE mg/dL (NEGATIVE) 07/18/17 21:30 Urine Blood LARGE (NEGATIVE) H 07/18/17 21:30 Urine Nitrate NEGATIVE (NEGATIVE) 07/18/17 21:30 Urine Bilirubin NEGATIVE (NEGATIVE) 07/18/17 21:30 Urine Urobilinogen 0.2 E.U./dL (0.2 - 1.0) 07/18/17 21:30 Ur Leukocyte Esterase SMALL (NEGATIVE) H 07/18/17 21:30 Urine RBC 50-100 /hpf (0-5) H 07/18/17 21:30 Urine WBC 6-10 /hpf (0-5) H 07/18/17 21:30 Ur Epithelial Cells FEW /lpf (FEW) 07/18/17 21:30 Urine Bacteria MANY /hpf (NONE SEEN) 07/18/17 21:30 Ur Random Sodium 28 mmol/L 07/19/17 22:30 Urine Creatinine 26.3 mg/dl (Not Estab.) 07/19/17 22:30 Urine Microalbumin 2398.5 ug/mL (Not Estab.) 07/19/17 22:30 Microalb/Creat Ratio 9119.8 07/19/17 22:30 Stool Occult Blood NEGATIVE (NEGATIVE) 07/24/17 03:37 Vancomycin Trough 30.5 ug/mL (10-20) H 08/03/17 08:08 Random Vancomycin 18.2 ug/mL (5.0-40.0) 08/05/17 05:10 Blood Type O NEGATIVE 07/20/17 08:15 Antibody Screen NEGATIVE 07/20/17 08:15 - Physical Exam Vitals and I&O: Vital Signs Temp 97.5 F 08/05/17 14:00 Pulse 71 08/05/17 14:00 Resp 12 08/05/17 14:00 BP 121/47 08/05/17 14:00 Pulse Ox 100 08/05/17 14:00 Intake & Output 08/04/17 08/05/17 08/05/17 18:59 06:59 18:59 Intake Total 1552.5 2037.5 Output Total 1700 1000 Balance -147.5 1037.5 Weight (lbs) 85.304 kg 83.915 kg 89.358 kg Intake: Intake, IV Amount 212.5 947.5 Meropenem 1 gm In 100 100 Dextrose 5% 100 ml @ 100 mls/hr IV Q12H [facility] Rx#: [id number] Sodium Chloride 0.9% 1, 112.5 847.5 000 ml @ 75 mls/hr IV . [id number] [facility] Rx#:[id number] Tube Feeding 840 1090 Other 500 Output: Urine 1600 900 Stool 100 100 Other: Stool Characteristics Liquid Liquid Liquid Brown Brown Active Medications: Current Medications Acetaminophen (Tylenol 650mg/20.3ml Suspension) 650 mg GT Q4H PRN PRN Reason: Pain or Fever >101 Stop: 09/16/17 23:47 Last Admin: 07/22/17 00:35 Dose: 650 mg Albuterol/Ipratropium (Duoneb Neb) 3 ml HHN Q6HRT [facility] Stop: 09/17/17 12:59 Last Admin: 08/05/17 12:44 Dose: 3 ml Albuterol/Ipratropium (Duoneb Neb) 3 ml HHN Q2HR PRN PRN Reason: Shortness of Breath Stop: 09/16/17 23:47 Ascorbic Acid (Vitamin C) 500 mg GT DAILY [facility] Stop: 09/17/17 08:59 Last Admin: 08/05/17 09:49 Dose: 500 mg Bisacodyl (Dulcolax 10 Mg Supp) 10 mg RC DAILY PRN PRN Reason: constip Stop: 09/16/17 23:47 Calamine/Phenol (Calmoseptine) 1 appl TP QID PRN PRN Reason: Skin Irritation Stop: 09/24/17 09:35 Calamine/Phenol (Calmoseptine) 1 appl TP QID [facility] Stop: 09/24/17 12:59 Last Admin: 08/05/17 09:00 Dose: 1 appl Carvedilol (Coreg) 6.25 mg GT BID [facility] Stop: 09/17/17 08:59 Last Admin: 08/05/17 10:07 Dose: Not Given [place] Oil/[place]ian Balsam/Trypsin (Venelex) 1 appl TP DAILY [facility] Stop: 09/25/17 08:59 Last Admin: 08/05/17 09:00 Dose: 1 appl Chlorhexidine Gluconate (Peridex) 15 ml MM 0800,1999 [facility] Stop: 09/17/17 07:59 Last Admin: 08/05/17 08:00 Dose: 15 ml Docusate Sodium (Colace) 100 mg GT BID PRN PRN Reason: Constipation Famotidine (Pepcid) 20 mg GT Q12H [facility] Stop: 09/16/17 23:44 Last Admin: 08/05/17 12:29 Dose: 20 mg Guaifenesin (Robitussin) 200 mg PO Q4HR PRN PRN Reason: Cough or Congestion Stop: 09/16/17 23:54 Heparin Sodium (Porcine) (Heparin) 5,000 units SUBQ Q12HR [facility] Stop: 09/17/17 08:59 Last Admin: 08/05/17 09:49 Dose: 5,000 units Meropenem 1 gm/ Dextrose 100 mls @ 100 mls/hr IV Q12H [facility] Stop: 09/30/17 14:59 Last Infusion: 08/05/17 04:10 Dose: Infused Sodium Chloride (Nacl 0.9%) 1,000 mls @ 75 mls/hr IV .[id number] [facility] Stop: 10/01/17 15:29 Last Admin: 08/05/17 00:54 Dose: 75 mls/hr Vancomycin HCl 750 mg/ Sodium (Chloride) 250 mls @ 250 mls/hr IV Q48H [facility] Stop: 10/04/17 20:59 Insulin Aspart (Novolog) 0 units SUBQ Q6HR [facility] PRN Reason: Protocol Stop: 09/18/17 17:59 Last Admin: 08/05/17 13:26 Dose: Not Given Insulin Detemir (Levemir Insulin) 24 units SUBQ BID [facility] PRN Reason: Protocol Stop: 09/20/17 08:59 Last Admin: 08/05/17 09:50 Dose: 24 units Lactobacillus Rhamnosus (Culturelle 15b) 1 each PO DAILY [facility] Stop: 09/30/17 10:59 Last Admin: 08/05/17 09:49 Dose: 1 each Magnesium Hydroxide (Milk Of Magnesia) 30 ml GT HS PRN PRN Reason: Constipation Stop: 09/16/17 23:47 Metoclopramide HCl (Reglan) 10 mg GT Q8H [facility] Stop: 09/20/17 13:01 Last Admin: 08/05/17 06:31 Dose: 10 mg Miscellaneous (Vancomycin Iv Per Pharmacy) 1 ea MC PRN [facility] Stop: 09/16/17 23:44 Miscellaneous (Clinical Monitoring) 1 ea MC PRN PRN PRN Reason: RENAL DOSE MERREM Stop: 09/17/17 08:23 Miscellaneous (Probiotic Screen) 1 ea MC PRN PRN PRN Reason: PROTOCOL Stop: 09/17/17 10:14 Miscellaneous (Vte Chemical Prophylaxis Screen/ Admission) 1 ea MC PRN PRN PRN Reason: PROTOCOL Stop: 09/17/17 13:47 Morphine Sulfate (Morphine) 2 mg IVP Q4H PRN PRN Reason: Pain (Severe) Stop: 09/16/17 23:53 Last Admin: 07/24/17 23:27 Dose: 2 mg Ondansetron HCl (Zofran) 4 mg IV Q8H PRN PRN Reason: Nausea / Vomiting Stop: 09/16/17 23:54 Last Admin: 07/21/17 18:48 Dose: 4 mg Sodium Phosphate (Fleet Enema) 135 ml RC Q48H PRN PRN Reason: Constipation Stop: 09/16/17 23:47 Zinc Sulfate (Zinc Sulfate) 220 mg GT DAILY [facility] Stop: 09/17/17 08:59 Last Admin: 08/05/17 09:49 Dose: 220 mg General: Alert, No acute distress HEENT: Atraumatic, Mucous membr. moist/pink Neck: Supple, +2 carotid pulse wo bruit Cardiovascular: Regular rate, Normal S1, Normal S2 Lungs: Other (few rhonchi) Abdomen: Soft, Distended Extremities: no Edema Neurological: Sensation intact Skin: no Rash Psych/Mental Status: Mood NL - Procedures Procedures: Procedures Procedure Code Date RESPIRATORY VENTILATION, GREATER THAN 96 CONSECUTIVE HOURS [id number] 07/18/17 Assessment/Plan - Assessment Assessment: ADELA Right Hydronephrosis, hydroureter w/ partial obstruction since has good UOP, improvement Kidney fnc Gross hematuria 2nd to trauma better Sepsis 2nd to Cx UTI RFVD Anemia CD Ess Htn Type 2 DM Met Enceph C. diff colitis Hypokalemia Hypernatremia - Plan Plan: Lab - Result Diagrams 07/20/17 04:10 07/20/17 04:10 Current Medications Acetaminophen (Tylenol 650mg/20.3ml Suspension) 650 mg GT Q4H PRN PRN Reason: Pain or Fever >101 Stop: 09/16/17 23:47 Albuterol/Ipratropium (Duoneb Neb) 3 ml HHN Q6HRT [facility] Stop: 09/17/17 12:59 Last Admin: 07/20/17 13:39 Dose: 3 ml Albuterol/Ipratropium (Duoneb Neb) 3 ml HHN Q2HR PRN PRN Reason: Shortness of Breath Stop: 09/16/17 23:47 Ascorbic Acid (Vitamin C) 500 mg GT DAILY [facility] Stop: 09/17/17 08:59 Last Admin: 07/20/17 09:07 Dose: 500 mg Bisacodyl (Dulcolax 10 Mg Supp) 10 mg RC DAILY PRN PRN Reason: constip Stop: 09/16/17 23:47 Carvedilol (Coreg) 3.125 mg GT BID [facility] Stop: 09/17/17 08:59 Last Admin: 07/20/17 16:43 Dose: 3.125 mg Chlorhexidine Gluconate (Peridex) 15 ml MM 08,1999 [facility] Stop: 09/17/17 07:59 Last Admin: 07/20/17 07:56 Dose: 15 ml Docusate Sodium (Colace) 100 mg GT BID PRN PRN Reason: Constipation Famotidine (Pepcid) 20 mg GT Q12H [facility] Stop: 09/16/17 23:44 Last Admin: 07/20/17 11:56 Dose: 20 mg Guaifenesin (Robitussin) 200 mg PO Q4HR PRN PRN Reason: Cough or Congestion Stop: 09/16/17 23:54 Heparin Sodium (Porcine) (Heparin) 5,000 units SUBQ Q12HR [facility] Stop: 09/17/17 08:59 Last Admin: 07/20/17 09:09 Dose: 5,000 units Piperacillin Sod/Tazobactam (Sod 2.25 gm/ Sodium Chloride) 100 mls @ 100 mls/ hr IV Q8H [facility] Stop: 09/17/17 08:59 Last Admin: 07/20/17 16:43 Dose: 100 mls/hr Vancomycin HCl 1 gm/ Dextrose 250 mls @ 165 mls/hr IV Q36H [facility] Stop: 09/18/17 01:59 Last Infusion: 07/20/17 04:00 Dose: Infused Sodium Chloride (Nacl 0.9%) 1,000 mls @ 100 mls/hr IV .Q10H [facility] Stop: 09/16/17 23:44 Last Admin: 07/20/17 02:00 Dose: 100 mls/hr Insulin Aspart (Novolog) 0 units SUBQ Q6HR [facility] PRN Reason: Protocol Stop: 09/18/17 17:59 Insulin Detemir (Levemir Insulin) 18 units SUBQ BID [facility] PRN Reason: Protocol Stop: 09/18/17 08:59 Last Admin: 07/20/17 16:44 Dose: 18 units Lactobacillus Rhamnosus (Culturelle) 1 each PO DAILY [facility] Stop: 09/18/17 08:59 Last Admin: 07/20/17 09:07 Dose: 1 each Magnesium Hydroxide (Milk Of Magnesia) 30 ml GT HS PRN PRN Reason: Constipation Stop: 09/16/17 23:47 Metoclopramide HCl (Reglan) 5 mg GT Q8H [facility] Stop: 09/16/17 23:44 Last Admin: 07/20/17 15:45 Dose: Not Given Miscellaneous (Vancomycin Iv Per Pharmacy) 1 ea MC PRN [facility] Stop: 09/16/17 23:44 Miscellaneous (Clinical Monitoring) 1 ea MC PRN PRN PRN Reason: RENAL DOSE [facility] Stop: 09/17/17 08:23 Miscellaneous (Probiotic Screen) 1 ea MC PRN PRN PRN Reason: PROTOCOL Stop: 09/17/17 10:14 Miscellaneous (Vte Chemical Prophylaxis Screen/ Admission) 1 ea MC PRN PRN PRN Reason: PROTOCOL Stop: 09/17/17 13:47 Morphine Sulfate (Morphine) 2 mg IVP Q4H PRN PRN Reason: Pain (Severe) Stop: 09/16/17 23:53 Ondansetron HCl (Zofran) 4 mg IV Q8H PRN PRN Reason: Nausea / Vomiting Stop: 09/16/17 23:54 Sodium Phosphate (Fleet Enema) 135 ml RC Q48H PRN PRN Reason: Constipation Stop: 09/16/17 23:47 Vancomycin HCl (Vancomycin Oral) 250 mg GT Q6HR [facility] Stop: 09/18/17 17:59 Last Admin: 07/20/17 17:54 Dose: 250 mg Zinc Sulfate (Zinc Sulfate) 220 mg GT DAILY [facility] Stop: 09/17/17 08:59 Last Admin: 07/20/17 09:07 Dose: 220 mg Lab - Result Diagrams 08/05/17 05:10 08/05/17 05:10 BUN up to 51 UOP still adequate Na up to 135 K elevation iatrogenic no further hematuria CT pelvis revealed right hydronephrosis/ureter Increase IVF 75 ml/hr since now in negative balance w/ clear CXR f/u elelctrolytes, cbc GT feed 70 ml/hr Nutritional Asmnt/Malnutr-PDOC - Dietary Evaluation Malnutrition Findings (Please click <Entered> for more info): Nutritional Asmnt/Malnutrition Start: 07/19/17 17: 24 Text: Status: Complete Freq: Document 07/19/17 17:25 LCHENG (Rec: 07/19/17 17:43 LCHENG [email or web address]) Nutritional Asmnt/Malnutrition Patient General Information Nutritional Screening High Risk Consult Diagnosis Sepsis, UTI Pertinent Medical Hx/Surgical Hx HTN, DM, CAD, CHF, chronic resperatory failure, anemia, PEG/Gtube, tracheostomy Subjective Information Consult received for elevated BG. Pt seen lying in bed, on vent, non verbal comminication noted. Not able to obtain nutrition hx. Spoke with RN, no nutrition plan at this time . Current Diet Order/ Nutrition Support NPO Pertinent Medications Vitamin C, novolog, cultrelle, reglan, vancomycin, , piperacillin, Nacl 0.9%, Zinc Pertinent Labs 07/19 Na 132, K 5.3, Cl 97L, BUN 137, Cr 2.7, Glu 353, POC 324-394, A1C 6.2 Nutritional Hx/Data Height 1.57 m Height (Calculated Centimeters) 157.5 Current Weight (lbs) 80.83 kg Weight (Calculated Kilograms) 80.8 Weight (Calculated Grams) 33325.2 [place] Body Weight 110 % [place] Body Weight 162 Body Mass Index (BMI) 32.5 Weight Status Obese GI Symptoms GI Symptoms None Last BM none Usual diet at home Glucerna 1.5 60ml/hr x 20hr daily at [facility] Skin Integrity/Comment: decubitus ulceration to sacrum Estimated Nutritional Goals BEE in Kcals: Adj wt of IBW Calories/Kcals/Kg 30-35 Kcals Calculated Protein: Adj wt of IBW Protein g/k.2-1.5 Protein Calculated 69-87 Fluid: ml [id number] Nutritional Problem 2. Problem Problem increased nutrition needs ( calorie and protein) Etiology increased metabolic demand for healing Signs/Symptoms: sepsis 1. Problem Problem altered nutrition related lab values Etiology hx of DM, acute renal insufficiency Signs/Symptoms: BUN 137, Cr 2.7, Glu 353, POC 324-394, A1C 6.2 Malnutrition Alert Protein-Calorie Malnutrition N/A Is there a minimum of two criteria No selected? Query Text:Check all the applicable criteria. A minimum of two criteria are recommended for diagnosis of either severe or non-severe malnutrition. Intervention/Recommendation Comments 1. Monitor NPO status. 2. If enteral feeding needed, recommend to start Diabetisource AC at 30ml/hr continuous. Increased to goal rate of 60ml/hr continuous as tolerated. This will provide 1728kcal, 86g protein and 1179ml water, meeting 100% of nutritional needs. 3. Monitor wt, labs and skin integrity 4. F/U as high risk in 2-3 days, 07/21-07/22 Expected Outcomes/Goals Expected Outcomes/Goals 1. Pt to meet at least 75% of nutritional needs in 2-3 days 2. Wt stability, skin to remain intact, labs to improve .
[2017-08-06] MEDS: INSULIN ASPART, RECOMBINANT 100 UNITS/ML SUBQ SCH ×3 (00:47→14:03)
[2017-08-06] MEDS: Albuterol/Ipratropium Neb 3 ML AERS HHN SCH ×4 (01:13→19:19)
--- NOTE | 2017-08-06 02:13 | Progress Notes ---
DATE: UROLOGY PROGRESS NOTE SUBJECTIVE: The patient remains in the ICU, stable without significant changes. EEG reading is still pending. Dr. Dunbar has discussed of hydronephrosis issue with the family who have not given a definite response. OBJECTIVE: VITAL SIGNS: On exam, blood pressure 121/51, heart rate 66, saturating 100%, and respirations of 17 with 12 assist control, FiO2 of 30%. Last temperature 96. ABDOMEN: Soft, mildly distended, with G-tube feeding going on. Flank is nontender. Bladder drained well Ocampo catheter without blood and good output. EXTREMITIES: No significant change or edema. CARDIOVASCULAR: Heart sounds in sinus rhythm. No murmur. LABORATORY DATA: White count improved again to 12.1, hemoglobin improved to 8.0 without transfusion. BUN 51 and creatinine 1.1 and stable. IMPRESSION: 1. Right hydronephrosis, maybe focus of infection. Options are percutaneous nephrostomy, which is very difficult technically or antegrade stent, which is also not very easy, requires some anesthesia and frequent changes in the future as well as being uncomfortable and prone to infection. We will have to proceed as per family's request. 2. Neurogenic bladder, now stable with Ocampo. No change. 3. Diabetes and multiple sclerosis, chronic conditions, passing the neurogenic bladder. Also stable. 4. Dementia. No change or slight deterioration. EEG reading pending. 5. Tracheostomy and G-tube with ventilator status, unchanged. 6. History of congestive heart failure and coronary artery disease, stable. JOB# [id number]
[2017-08-06 06:40] LABS: % BASOPHILS 0.5 % (0.0-2.0); % EOSINOPHILS 2.8 % (0.0-5.0); % LYMPHOCYTES 25.1 % (20.0-50.0); % MONOCYTES 6.3 % (2.0-10.0); % NEUTROPHILS 65.3 % (40.0-80.0); BASOPHILE ABSOLUTE 0.1 Th/cumm (0-0.2); EOSINOPHILE ABSOLUTE 0.3 Th/cmm (0.1-0.4); MEAN CORPUSCULAR HEMOGLOBIN 29.1 pg (27.0-31.0); MEAN CORPUSCULAR HGB CONC 33.8 pg (28.0-36.0); MEAN PLATELET VOLUME 10.3 fl; MONOCYTE ABSOLUTE 0.8 Th/cmm (0.3-1.0); NEUTROPHILE ABSOLUTE 7.8 Th/cmm (1.8-8.0); PLATELET COUNT 322 Th/cmm (150-400); RED BLOOD COUNT 2.56 Mil/cmm (3.80-5.10); RED CELL DISTRIBUTION WIDTH 14.6 % (11.5-20.0)
[2017-08-06 06:52] LABS: HEMOGLOBIN 7.5 gm/dL (12-16)
[2017-08-06 07:05] LABS: BUN - UREA NITROGEN 50 mg/dL (7-25); CALCIUM SERUM 8.1 mg/dL (8.6-10.3); CARBON DIOXIDE 22.1 mEq/L (21.0-31.0); CHLORIDE 108 mEq/L (98-107); GFR AFRICAN-AMERICAN > 60.0 ml/min (>90); GFR NON AFRICAN-AMERICAN 59.7 ml/min; GLUCOSE 101 mg/dL (70-105); POTASSIUM SERUM 4.1 mEq/L (3.5-5.1); SODIUM SERUM 137 mEq/L (136-145)
[2017-08-06] MEDS: Sodium Chloride 0.9% 1,000 ML IV SCH ×2 (07:20→22:38)
[2017-08-06] MEDS: Chlorhexidine Gluconate 0.12% 15mL Mouthwash MM SCH ×2 (09:28→19:31)
[2017-08-06] MEDS: Venelex 60gm Tube TP SCH (09:28)
[2017-08-06] MEDS: Lactobacillus Rhamnosus GG 15 Billion CFU CAP.SPRINK PO SCH (09:29)
[2017-08-06] MEDS: Menthol/Zinc Oxide Oint 113gm Tube TP SCH ×4 (09:29→23:44)
[2017-08-06] MEDS: Multivitamin w/ Minerals Tab GT SCH (09:30)
[2017-08-06] MEDS: Insulin Detemir 100 units/mL 10mL Vial SUBQ SCH ×2 (09:40→17:56)
--- NOTE | 2017-08-06 11:53 | General Progress Note ---
Subjective - Review of Systems Service Date: 08/06/17 Subjective: awake, comfortable, on vent Objective - Results Result Diagrams: 08/06/17 06:00 08/06/17 06:00 Recent Labs: Laboratory Last Values WBC 12.0 Th/cmm (4.8-10.8) H 08/06/17 06:00 RBC 2.56 Mil/cmm (3.80-5.10) L 08/06/17 06:00 Hgb 7.5 gm/dL (12-16) L* 08/06/17 06:00 Hct 22.0 % (41.0-60) L 08/06/17 06:00 MCV 86.0 fl (81-100) 08/06/17 06:00 MCH 29.1 pg (27.0-31.0) 08/06/17 06:00 MCHC Differential 33.8 pg (28.0-36.0) 08/06/17 06:00 RDW 14.6 % (11.5-20.0) 08/06/17 06:00 Plt Count 322 Th/cmm (150-400) 08/06/17 06:00 MPV 10.3 fl 08/06/17 06:00 Neutrophils % 65.3 % (40.0-80.0) 08/06/17 06:00 Band Neutrophils % 4 % (0-10) 08/04/17 04:45 Lymphocytes % 25.1 % (20.0-50.0) 08/06/17 06:00 Monocytes % 6.3 % (2.0-10.0) 08/06/17 06:00 Eosinophils % 2.8 % (0.0-5.0) 08/06/17 06:00 Basophils % 0.5 % (0.0-2.0) 08/06/17 06:00 Neutrophils (Manual) 69 % (40-80) 08/04/17 04:45 Lymphocytes 24 % (20-50) 08/04/17 04:45 Monocytes 3 % (2-10) 08/04/17 04:45 Eosinophils 1 % (0-5) 08/02/17 06:30 Hypochromia 1+ 07/30/17 04:30 Platelet Estimate ADEQUATE (NORMAL) 08/04/17 04:45 Polychromasia 1+ 07/30/17 04:30 Smear Path Review YES 07/18/17 22:15 Eos Smear Source URINE 07/19/17 22:30 Eos Smear Total Cells NONE SEEN (NONE SEEN) 07/19/17 22:30 PT 10.4 SECONDS (9.5-11.5) 07/30/17 15:12 INR 1.00 (0.5-1.4) 07/30/17 15:12 PTT (Actin FS) 27.5 SECONDS (26.0-38.0) 07/30/17 15:12 Specimen Source Arterial 07/25/17 14:15 Sample Site RIGHT BRACHIAL 07/25/17 14:15 pH 7.48 (7.35-7.45) H 07/25/17 14:15 pCO2 33.0 mmHg (35.0-45.0) L 07/25/17 14:15 pO2 144.0 mmHg (80.0-100.0) H 07/25/17 14:15 HCO3 26.1 mEq/L (20.0-26.0) H 07/25/17 14:15 Base Excess 1.5 mEq/L (-3.0-3.0) 07/25/17 14:15 O2 Saturation 99.0 % (92.0-100.0) 07/25/17 14:15 Cricket Test Positive 07/25/17 14:15 Vent Rate 12 07/25/17 14:15 Inspired O2 35 07/25/17 14:15 Tidal Volume 500 07/25/17 14:15 PEEP 5 07/25/17 14:15 Pressure (ins/psv/peep) N/A 07/25/17 14:15 Critical Value HSTEHNO 07/25/17 14:15 Sodium 137 mEq/L (136-145) 08/06/17 06:00 Potassium 4.1 mEq/L (3.5-5.1) 08/06/17 06:00 Chloride 108 mEq/L (98-107) H 08/06/17 06:00 Carbon Dioxide 22.1 mEq/L (21.0-31.0) 08/06/17 06:00 Anion Gap 11.0 (7.0-16.0) 08/06/17 06:00 BUN 50 mg/dL (7-25) H 08/06/17 06:00 Creatinine 1.0 mg/dL (0.6-1.2) 08/06/17 06:00 Est GFR ( Amer) > 60.0 ml/min (>90) 08/06/17 06:00 Est GFR (Non-Af Amer) 59.7 ml/min 08/06/17 06:00 BUN/Creatinine Ratio 50.0 08/06/17 06:00 Glucose 101 mg/dL (70-105) 08/06/17 06:00 POC Glucose 134 MG/DL (70 - 105) H 08/06/17 10:36 Hemoglobin A1c % 6.2 % (4.0-6.0) H 07/18/17 23:30 Plasma/Ser Osmolality 344 mOsmol/kg (280-301) H 07/19/17 23:30 Whole Bld Lactic Acid 0.61 mmol/L (0.60-1.99) 07/20/17 04:10 Uric Acid 9.5 mg/dL (2.3-6.6) H 07/20/17 04:10 Calcium 8.1 mg/dL (8.6-10.3) L 08/06/17 06:00 Phosphorus 4.5 mg/dL (2.5-5.0) 07/20/17 04:10 Magnesium 1.8 mg/dL (1.9-2.7) L 07/28/17 05:00 Iron 36 ug/dL (27-139) 07/30/17 04:30 TIBC 160 ug/dL (250-450) L 07/30/17 04:30 Iron Saturation 23 % (15-55) 07/30/17 04:30 Unsaturated IBC 124 ug/dL (118-369) 07/30/17 04:30 Total Bilirubin 0.3 mg/dL (0.3-1.0) 08/01/17 05:55 AST 9 U/L (13-39) L 08/01/17 05:55 ALT 11 U/L (7-52) 08/01/17 05:55 Alkaline Phosphatase 111 U/L (34-104) H 08/01/17 05:55 Ammonia 32 umol/L (16-53) 08/04/17 04:45 Creatine Kinase 26 U/L (30-223) L 07/18/17 22:15 Troponin I 0.27 ng/mL (0.01-0.05) H* 07/18/17 22:15 B-Natriuretic Peptide 335.0 pg/mL (5.0-100.0) H 08/04/17 04:45 Total Protein 6.4 gm/dL (6.0-8.3) 08/01/17 05:55 Albumin 2.9 gm/dL (3.7-5.3) L 08/01/17 05:55 Globulin 3.5 gm/dL 08/01/17 05:55 Albumin/Globulin Ratio 0.8 (1.0-1.8) L 08/01/17 05:55 Vitamin B12 >1999 pg/mL (232-1245) H 07/30/17 04:30 Folic Acid >20.0 ng/mL (>3.0) 07/30/17 04:30 TSH 2.30 uIU/ml (0.34-5.60) 07/19/17 04:15 Urine Source [place] 07/18/17 21:30 Urine Color RED 07/18/17 21:30 Urine Clarity CLOUDY (CLEAR) H 07/18/17 21:30 Urine pH 7.5 (4.6 - 8.0) 07/18/17 21:30 Ur Specific [place] 1.025 (1.005-1.030) 07/18/17 21:30 Urine Protein >=300 mg/dL (NEGATIVE) 07/18/17 21:30 Urine Glucose (UA) NEGATIVE mg/dL (NEGATIVE) 07/18/17 21:30 Urine Ketones NEGATIVE mg/dL (NEGATIVE) 07/18/17 21:30 Urine Blood LARGE (NEGATIVE) H 07/18/17 21:30 Urine Nitrate NEGATIVE (NEGATIVE) 07/18/17 21:30 Urine Bilirubin NEGATIVE (NEGATIVE) 07/18/17 21:30 Urine Urobilinogen 0.2 E.U./dL (0.2 - 1.0) 07/18/17 21:30 Ur Leukocyte Esterase SMALL (NEGATIVE) H 07/18/17 21:30 Urine RBC 50-100 /hpf (0-5) H 07/18/17 21:30 Urine WBC 6-10 /hpf (0-5) H 07/18/17 21:30 Ur Epithelial Cells FEW /lpf (FEW) 07/18/17 21:30 Urine Bacteria MANY /hpf (NONE SEEN) 07/18/17 21:30 Ur Random Sodium 28 mmol/L 07/19/17 22:30 Urine Creatinine 26.3 mg/dl (Not Estab.) 07/19/17 22:30 Urine Microalbumin 2398.5 ug/mL (Not Estab.) 07/19/17 22:30 Microalb/Creat Ratio 9119.8 07/19/17 22:30 Stool Occult Blood NEGATIVE (NEGATIVE) 07/24/17 03:37 Vancomycin Trough 30.5 ug/mL (10-20) H 08/03/17 08:08 Random Vancomycin 18.2 ug/mL (5.0-40.0) 08/05/17 05:10 Blood Type O NEGATIVE 07/20/17 08:15 Antibody Screen NEGATIVE 07/20/17 08:15 - Physical Exam Vitals and I&O: Vital Signs Temp 96.8 F 08/06/17 08:00 Pulse 66 08/06/17 11:33 Resp 17 08/06/17 11:00 BP 133/50 08/06/17 11:00 Pulse Ox 100 08/06/17 11:33 Intake & Output 08/05/17 08/06/17 08/06/17 18:59 06:59 18:59 Intake Total 1940 350 Output Total 1400 Balance 540 350 Weight (lbs) 89.811 kg Intake: Intake, IV Amount 1100 350 Meropenem 1 gm In 100 100 Dextrose 5% 100 ml @ 100 mls/hr IV Q12H PENDING SALE TO [facility] Rx#: [id number] Sodium Chloride 0.9% 1, 1000 000 ml @ 75 mls/hr IV . [id number] PENDING SALE TO [facility] Rx#:[id number] Vancomycin HCl 750 mg In 250 Sodium Chloride 0.9% 250 ml @ 250 mls/hr IV Q48H PENDING SALE TO [facility] Rx#:[id number] Tube Feeding 840 Output: Urine 1000 Stool 400 Other: Stool Characteristics Liquid Liquid Liquid Active Medications: Current Medications Acetaminophen (Tylenol 650mg/20.3ml Suspension) 650 mg GT Q4H PRN PRN Reason: Pain or Fever >101 Stop: 09/16/17 23:47 Last Admin: 07/22/17 00:35 Dose: 650 mg Albuterol/Ipratropium (Duoneb Neb) 3 ml HHN Q6HRT PENDING SALE TO [facility] Stop: 09/17/17 12:59 Last Admin: 08/06/17 07:13 Dose: 3 ml Albuterol/Ipratropium (Duoneb Neb) 3 ml HHN Q2HR PRN PRN Reason: Shortness of Breath Stop: 09/16/17 23:47 Ascorbic Acid (Vitamin C) 500 mg GT DAILY ISABELLE Stop: 09/17/17 08:59 Last Admin: 08/06/17 09:27 Dose: 500 mg Bisacodyl (Dulcolax 10 Mg Supp) 10 mg RC DAILY PRN PRN Reason: constip Stop: 09/16/17 23:47 Calamine/Phenol (Calmoseptine) 1 appl TP QID PRN PRN Reason: Skin Irritation Stop: 09/24/17 09:35 Calamine/Phenol (Calmoseptine) 1 appl TP QID ISABELLE Stop: 09/24/17 12:59 Last Admin: 08/06/17 09:29 Dose: 1 appl Carvedilol (Coreg) 6.25 mg GT BID PEND[facility] SALE TO [facility] Stop: 09/17/17 08:59 Last Admin: 08/06/17 09:25 Dose: Not Given [place] Oil/[place]auritian Balsam/Trypsin (Venelex) 1 appl TP DAILY PENDING SALE TO [facility] Stop: 09/25/17 08:59 Last Admin: 08/06/17 09:28 Dose: 1 appl Chlorhexidine Gluconate (Peridex) 15 ml MM 0800,2000 PENDING SALE TO [facility] Stop: 09/17/17 07:59 Last Admin: 08/06/17 09:28 Dose: 15 ml Docusate Sodium (Colace) 100 mg GT BID PRN PRN Reason: Constipation Famotidine (Pepcid) 20 mg GT Q12H PENDING SALE TO [facility] Stop: 09/16/17 23:44 Last Admin: 08/05/17 23:13 Dose: 20 mg Guaifenesin (Robitussin) 200 mg PO Q4HR PRN PRN Reason: Cough or Congestion Stop: 09/16/17 23:54 Heparin Sodium (Porcine) (Heparin) 5,000 units SUBQ Q12HR ISABELLE Stop: 09/17/17 08:59 Last Admin: 08/06/17 09:30 Dose: 5,000 units Meropenem 1 gm/ Dextrose 100 mls @ 100 mls/hr IV Q12H PENDING SALE TO [facility] Stop: 09/30/17 14:59 Last Infusion: 08/06/17 04:45 Dose: Infused Sodium Chloride (Nacl 0.9%) 1,000 mls @ 75 mls/hr IV .[id number] PENDING SALE TO [facility] Stop: 10/01/17 15:29 Last Admin: 08/05/17 17:53 Dose: 75 mls/hr Vancomycin HCl 750 mg/ Sodium (Chloride) 250 mls @ 250 mls/hr IV Q48H PENDING SALE TO [facility] Stop: 10/04/17 20:59 Last Infusion: 08/05/17 22:10 Dose: Infused Insulin Aspart (Novolog) 0 units SUBQ Q6HR ISABELLE PRN Reason: Protocol Stop: 09/18/17 17:59 Last Admin: 08/06/17 06:18 Dose: Not Given Insulin Detemir (Levemir Insulin) 24 units SUBQ BID ISABELLE PRN Reason: Protocol Stop: 09/20/17 08:59 Last Admin: 08/06/17 09:40 Dose: 24 units Lactobacillus Rhamnosus (Culturelle 15b) 1 each PO DAILY PEND[facility] SALE TO [facility] Stop: 09/30/17 10:59 Last Admin: 08/06/17 09:29 Dose: 1 each Magnesium Hydroxide (Milk Of Magnesia) 30 ml GT HS PRN PRN Reason: Constipation Stop: 09/16/17 23:47 Metoclopramide HCl (Reglan) 10 mg GT Q8H PENDING SALE TO [facility] Stop: 09/20/17 13:01 Last Admin: 08/06/17 05:27 Dose: 10 mg Miscellaneous (Vancomycin Iv Per Pharmacy) 1 ea MC PRN PENDING SALE TO [facility] Stop: 09/16/17 23:44 Miscellaneous (Clinical Monitoring) 1 ea MC PRN PRN PRN Reason: RENAL DOSE MERREM Stop: 09/17/17 08:23 Miscellaneous (Probiotic Screen) 1 ea MC PRN PRN PRN Reason: PROTOCOL Stop: 09/17/17 10:14 Miscellaneous (Vte Chemical Prophylaxis Screen/ Admission) 1 ea MC PRN PRN PRN Reason: PROTOCOL Stop: 09/17/17 13:47 Morphine Sulfate (Morphine) 2 mg IVP Q4H PRN PRN Reason: Pain (Severe) Stop: 09/16/17 23:53 Last Admin: 07/24/17 23:27 Dose: 2 mg Ondansetron HCl (Zofran) 4 mg IV Q8H PRN PRN Reason: Nausea / Vomiting Stop: 09/16/17 23:54 Last Admin: 07/21/17 18:48 Dose: 4 mg Sodium Phosphate (Fleet Enema) 135 ml RC Q48H PRN PRN Reason: Constipation Stop: 09/16/17 23:47 Zinc Sulfate (Zinc Sulfate) 220 mg GT DAILY PENDING SALE TO [facility] Stop: 09/17/17 08:59 Last Admin: 08/06/17 09:30 Dose: 220 mg General: Alert, No acute distress HEENT: Atraumatic, Mucous membr. moist/pink Neck: Supple, +2 carotid pulse wo bruit Cardiovascular: Regular rate, Normal S1, Normal S2 Lungs: Other (few rhonchi) Abdomen: Soft, Distended Extremities: no Edema Neurological: Sensation intact Skin: no Rash Psych/Mental Status: Mood NL - Procedures Procedures: Procedures Procedure Code Date RESPIRATORY VENTILATION, GREATER THAN 96 CONSECUTIVE HOURS [id number] 07/18/17 Assessment/Plan - Assessment Assessment: ADELA Right Hydronephrosis, hydroureter w/ partial obstruction since has good UOP, improvement Kidney fnc Gross hematuria 2nd to trauma better Sepsis 2nd to Cx UTI RFVD Anemia CD Ess Htn Type 2 DM Met Enceph C. diff colitis Hypokalemia Hypernatremia - Plan Plan: Lab - Result Diagrams 07/20/17 04:10 07/20/17 04:10 Current Medications Acetaminophen (Tylenol 650mg/20.3ml Suspension) 650 mg GT Q4H PRN PRN Reason: Pain or Fever >101 Stop: 09/16/17 23:47 Albuterol/Ipratropium (Duoneb Neb) 3 ml HHN Q6HRT PENDING SALE TO [facility] Stop: 09/17/17 12:59 Last Admin: 07/20/17 13:39 Dose: 3 ml Albuterol/Ipratropium (Duoneb Neb) 3 ml HHN Q2HR PRN PRN Reason: Shortness of Breath Stop: 09/16/17 23:47 Ascorbic Acid (Vitamin C) 500 mg GT DAILY PENDING SALE TO [facility] Stop: 09/17/17 08:59 Last Admin: 07/20/17 09:07 Dose: 500 mg Bisacodyl (Dulcolax 10 Mg Supp) 10 mg RC DAILY PRN PRN Reason: constip Stop: 09/16/17 23:47 Carvedilol (Coreg) 3.125 mg GT BID PENDING SALE TO [facility] Stop: 09/17/17 08:59 Last Admin: 07/20/17 16:43 Dose: 3.125 mg Chlorhexidine Gluconate (Peridex) 15 ml MM 08,1999 PENDING SALE TO [facility] Stop: 09/17/17 07:59 Last Admin: 07/20/17 07:56 Dose: 15 ml Docusate Sodium (Colace) 100 mg GT BID PRN PRN Reason: Constipation Famotidine (Pepcid) 20 mg GT Q12H PENDING SALE TO [facility] Stop: 09/16/17 23:44 Last Admin: 07/20/17 11:56 Dose: 20 mg Guaifenesin (Robitussin) 200 mg PO Q4HR PRN PRN Reason: Cough or Congestion Stop: 09/16/17 23:54 Heparin Sodium (Porcine) (Heparin) 5,000 units SUBQ Q12HR PENDING SALE TO [facility] Stop: 09/17/17 08:59 Last Admin: 07/20/17 09:09 Dose: 5,000 units Piperacillin Sod/Tazobactam (Sod 2.25 gm/ Sodium Chloride) 100 mls @ 100 mls/ hr IV Q8H PENDING SALE TO [facility] Stop: 09/17/17 08:59 Last Admin: 07/20/17 16:43 Dose: 100 mls/hr Vancomycin HCl 1 gm/ Dextrose 250 mls @ 165 mls/hr IV Q36H PENDING SALE TO [facility] Stop: 09/18/17 01:59 Last Infusion: 07/20/17 04:00 Dose: Infused Sodium Chloride (Nacl 0.9%) 1,000 mls @ 100 mls/hr IV .Q10H PENDING SALE TO [facility] Stop: 09/16/17 23:44 Last Admin: 07/20/17 02:00 Dose: 100 mls/hr Insulin Aspart (Novolog) 0 units SUBQ Q6HR ISABELLE PRN Reason: Protocol Stop: 09/18/17 17:59 Insulin Detemir (Levemir Insulin) 18 units SUBQ BID ISABELLE PRN Reason: Protocol Stop: 09/18/17 08:59 Last Admin: 07/20/17 16:44 Dose: 18 units Lactobacillus Rhamnosus (Culturelle) 1 each PO DAILY PENDING SALE TO [facility] Stop: 09/18/17 08:59 Last Admin: 07/20/17 09:07 Dose: 1 each Magnesium Hydroxide (Milk Of Magnesia) 30 ml GT HS PRN PRN Reason: Constipation Stop: 02/16/18 23:47 Metoclopramide HCl (Reglan) 5 mg GT Q8H ISABELLE Stop: 09/16/17 23:44 Last Admin: 07/20/17 15:45 Dose: Not Given Miscellaneous (Vancomycin Iv Per Pharmacy) 1 ea PRN ISABELLE Stop: 09/16/17 23:44 Miscellaneous (Clinical Monitoring) 1 ea PRN PRN PRN Reason: RENAL DOSE ZOSYN Stop: 09/17/17 08:23 Miscellaneous (Probiotic Screen) 1 ea PRN PRN PRN Reason: PROTOCOL Stop: 09/17/17 10:14 Miscellaneous (Vte Chemical Prophylaxis Screen/ Admission) 1 ea PRN PRN PRN Reason: PROTOCOL Stop: 09/17/17 13:47 Morphine Sulfate (Morphine) 2 mg IVP Q4H PRN PRN Reason: Pain (Severe) Stop: 09/16/17 23:53 Ondansetron HCl (Zofran) 4 mg IV Q8H PRN PRN Reason: Nausea / Vomiting Stop: 09/16/17 23:54 Sodium Phosphate (Fleet Enema) 135 ml RC Q48H PRN PRN Reason: Constipation Stop: 09/16/17 23:47 Vancomycin HCl (Vancomycin Oral) 250 mg GT Q6HR ISABELLE Stop: 09/18/17 17:59 Last Admin: 07/20/17 17:54 Dose: 250 mg Zinc Sulfate (Zinc Sulfate) 220 mg GT DAILY ISABELLE Stop: 09/17/17 08:59 Last Admin: 07/20/17 09:07 Dose: 22 Lab - Result Diagrams 08/06/17 06:00 08/06/17 06:00 BUN down to 50 UOP still adequate Na up to 137 K elevation iatrogenic no further hematuria CT pelvis revealed right hydronephrosis/ureter Increase IVF 75 ml/hr since now in negative balance w/ clear CXR f/u elelctrolytes, cbc GT feed 70 ml/hr Nutritional Asmnt/Malnutr-PDOC - Dietary Evaluation Malnutrition Findings (Please click <Entered> for more info): Nutritional Asmnt/Malnutrition Start: 07/19/17 17: 24 Text: Status: Complete Freq: Document 07/19/17 17:25 LCHENG (Rec: 07/19/17 17:43 LCHENG [email or web address]) Nutritional Asmnt/Malnutrition Patient General Information Nutritional Screening High Risk Consult Diagnosis Sepsis, UTI Pertinent Medical Hx/Surgical Hx HTN, DM, CAD, CHF, chronic resperatory failure, anemia, PEG/Gtube, tracheostomy Subjective Information Consult received for elevated BG. Pt seen lying in bed, on vent, non verbal comminication noted. Not able to obtain nutrition hx. Spoke with RN, no nutrition plan at this time . Current Diet Order/ Nutrition Support NPO Pertinent Medications Vitamin C, novolog, cultrelle, reglan, vancomycin, , piperacillin, Nacl 0.9%, Zinc Pertinent Labs 07/19 Na 132, K 5.3, Cl 97L, BUN 137, Cr 2.7, Glu 353, POC 324-394, A1C 6.2 Nutritional Hx/Data Height 1.57 m Height (Calculated Centimeters) 157.5 Current Weight (lbs) 80.83 kg Weight (Calculated Kilograms) 80.8 Weight (Calculated Grams) 55580.2 [place] Body Weight 110 % [place] Body Weight 162 Body Mass Index (BMI) 32.5 Weight Status Obese GI Symptoms GI Symptoms None Last BM none Usual diet at home Glucerna 1.5 60ml/hr x 20hr daily at [facility] Skin Integrity/Comment: decubitus ulceration to sacrum Estimated Nutritional Goals BEE in Kcals: Adj wt of IBW Calories/Kcals/Kg 30-35 Kcals Calculated 0074-0011 Protein: Adj wt of IBW Protein g/k.2-1.5 Protein Calculated 69-87 Fluid: ml 2851-1231 Nutritional Problem 2. Problem Problem increased nutrition needs ( calorie and protein) Etiology increased metabolic demand for healing Signs/Symptoms: sepsis 1. Problem Problem altered nutrition related lab values Etiology hx of DM, acute renal insufficiency Signs/Symptoms: BUN 137, Cr 2.7, Glu 353, POC 324-394, A1C 6.2 Malnutrition Alert Protein-Calorie Malnutrition N/A Is there a minimum of two criteria No selected? Query Text:Check all the applicable criteria. A minimum of two criteria are recommended for diagnosis of either severe or non-severe malnutrition. Intervention/Recommendation Comments 1. Monitor NPO status. 2. If enteral feeding needed, recommend to start Diabetisource AC at 30ml/hr continuous. Increased to goal rate of 60ml/hr continuous as tolerated. This will provide 1728kcal, 86g protein and 1179ml water, meeting 100% of nutritional needs. 3. Monitor wt, labs and skin integrity 4. F/U as high risk in 2-3 days, 07/21-07/22 Expected Outcomes/Goals Expected Outcomes/Goals 1. Pt to meet at least 75% of nutritional needs in 2-3 days 2. Wt stability, skin to remain intact, labs to improve .
--- NOTE | 2017-08-06 16:12 | EEG ---
DATE OF SERVICE: 08/02/2017 PROCEDURE: Electroencephalogram. DESCRIPTION OF PROCEDURE: This is an 18 channel EEG. A 10-20 international systems is used. Background shows rhythm in the range of 4 to 6, mainly 4-5 hz. Background slow. There is no seizure activity. IMPRESSION: Abnormal EEG showing moderate encephalopathy. No seizure activity. JOB# [id number]
--- NOTE | 2017-08-06 17:25 | Internal Medicine Prog Note ---
Internal Medicine Subjective - Subjective Patient seen and examined:: with staff, chart reviewed Patient is:: awake, non-verbal, non-interactive, in bed, stares blankly Patient Complaints of:: congestion, bloated Per staff patient has:: tolerating meds Internal Medicine Objective - Results Result Diagrams: 08/06/17 06:00 08/06/17 06:00 Recent Labs: Laboratory Last Values WBC 12.0 Th/cmm (4.8-10.8) H 08/06/17 06:00 RBC 2.56 Mil/cmm (3.80-5.10) L 08/06/17 06:00 Hgb 7.5 gm/dL (12-16) L* 08/06/17 06:00 Hct 22.0 % (41.0-60) L 08/06/17 06:00 MCV 86.0 fl (81-100) 08/06/17 06:00 MCH 29.1 pg (27.0-31.0) 08/06/17 06:00 MCHC Differential 33.8 pg (28.0-36.0) 08/06/17 06:00 RDW 14.6 % (11.5-20.0) 08/06/17 06:00 Plt Count 322 Th/cmm (150-400) 08/06/17 06:00 MPV 10.3 fl 08/06/17 06:00 Neutrophils % 65.3 % (40.0-80.0) 08/06/17 06:00 Band Neutrophils % 4 % (0-10) 08/04/17 04:45 Lymphocytes % 25.1 % (20.0-50.0) 08/06/17 06:00 Monocytes % 6.3 % (2.0-10.0) 08/06/17 06:00 Eosinophils % 2.8 % (0.0-5.0) 08/06/17 06:00 Basophils % 0.5 % (0.0-2.0) 08/06/17 06:00 Neutrophils (Manual) 69 % (40-80) 08/04/17 04:45 Lymphocytes 24 % (20-50) 08/04/17 04:45 Monocytes 3 % (2-10) 08/04/17 04:45 Eosinophils 1 % (0-5) 08/02/17 06:30 Hypochromia 1+ 12/30/17 04:30 Platelet Estimate ADEQUATE (NORMAL) 08/04/17 04:45 Polychromasia 1+ 07/30/17 04:30 Smear Path Review YES 07/18/17 22:15 Eos Smear Source URINE 07/19/17 22:30 Eos Smear Total Cells NONE SEEN (NONE SEEN) 07/19/17 22:30 PT 10.4 SECONDS (9.5-11.5) 07/30/17 15:12 INR 1.00 (0.5-1.4) 07/30/17 15:12 PTT (Actin FS) 27.5 SECONDS (26.0-38.0) 07/30/17 15:12 Specimen Source Arterial 07/25/17 14:15 Sample Site RIGHT BRACHIAL 07/25/17 14:15 pH 7.48 (7.35-7.45) H 07/25/17 14:15 pCO2 33.0 mmHg (35.0-45.0) L 07/25/17 14:15 pO2 144.0 mmHg (80.0-100.0) H 07/25/17 14:15 HCO3 26.1 mEq/L (20.0-26.0) H 07/25/17 14:15 Base Excess 1.5 mEq/L (-3.0-3.0) 07/25/17 14:15 O2 Saturation 99.0 % (92.0-100.0) 07/25/17 14:15 Cricket Test Positive 07/25/17 14:15 Vent Rate 12 07/25/17 14:15 Inspired O2 35 07/25/17 14:15 Tidal Volume 500 07/25/17 14:15 PEEP 5 07/25/17 14:15 Pressure (ins/psv/peep) N/A 07/25/17 14:15 Critical Value HSTEHNO 07/25/17 14:15 Sodium 137 mEq/L (136-145) 08/06/17 06:00 Potassium 4.1 mEq/L (3.5-5.1) 08/06/17 06:00 Chloride 108 mEq/L (98-107) H 08/06/17 06:00 Carbon Dioxide 22.1 mEq/L (21.0-31.0) 08/06/17 06:00 Anion Gap 11.0 (7.0-16.0) 08/06/17 06:00 BUN 50 mg/dL (7-25) H 08/06/17 06:00 Creatinine 1.0 mg/dL (0.6-1.2) 08/06/17 06:00 Est GFR ( Amer) > 60.0 ml/min (>90) 08/06/17 06:00 Est GFR (Non-Af Amer) 59.7 ml/min 08/06/17 06:00 BUN/Creatinine Ratio 50.0 08/06/17 06:00 Glucose 101 mg/dL (70-105) 08/06/17 06:00 POC Glucose 129 MG/DL (70 - 105) H 08/06/17 12:35 Hemoglobin A1c % 6.2 % (4.0-6.0) H 07/18/17 23:30 Plasma/Ser Osmolality 344 mOsmol/kg (280-301) H 07/19/17 23:30 Whole Bld Lactic Acid 0.61 mmol/L (0.60-1.99) 07/20/17 04:10 Uric Acid 9.5 mg/dL (2.3-6.6) H 07/20/17 04:10 Calcium 8.1 mg/dL (8.6-10.3) L 08/06/17 06:00 Phosphorus 4.5 mg/dL (2.5-5.0) 07/20/17 04:10 Magnesium 1.8 mg/dL (1.9-2.7) L 07/28/17 05:00 Iron 36 ug/dL (27-139) 07/30/17 04:30 TIBC 160 ug/dL (250-450) L 07/30/17 04:30 Iron Saturation 23 % (15-55) 07/30/17 04:30 Unsaturated IBC 124 ug/dL (118-369) 07/30/17 04:30 Total Bilirubin 0.3 mg/dL (0.3-1.0) 08/01/17 05:55 AST 9 U/L (13-39) L 08/01/17 05:55 ALT 11 U/L (7-52) 08/01/17 05:55 Alkaline Phosphatase 111 U/L (34-104) H 08/01/17 05:55 Ammonia 32 umol/L (16-53) 08/04/17 04:45 Creatine Kinase 26 U/L (30-223) L 07/18/17 22:15 Troponin I 0.27 ng/mL (0.01-0.05) H* 07/18/17 22:15 B-Natriuretic Peptide 335.0 pg/mL (5.0-100.0) H 08/04/17 04:45 Total Protein 6.4 gm/dL (6.0-8.3) 08/01/17 05:55 Albumin 2.9 gm/dL (3.7-5.3) L 08/01/17 05:55 Globulin 3.5 gm/dL 08/01/17 05:55 Albumin/Globulin Ratio 0.8 (1.0-1.8) L 08/01/17 05:55 Vitamin B12 >1999 pg/mL (232-1245) H 07/30/17 04:30 Folic Acid >20.0 ng/mL (>3.0) 07/30/17 04:30 TSH 2.30 uIU/ml (0.34-5.60) 07/19/17 04:15 Urine Source [place] 07/18/17 21:30 Urine Color RED 07/18/17 21:30 Urine Clarity CLOUDY (CLEAR) H 07/18/17 21:30 Urine pH 7.5 (4.6 - 8.0) 07/18/17 21:30 Ur Specific [place] 1.025 (1.005-1.030) 07/18/17 21:30 Urine Protein >=300 mg/dL (NEGATIVE) 07/18/17 21:30 Urine Glucose (UA) NEGATIVE mg/dL (NEGATIVE) 07/18/17 21:30 Urine Ketones NEGATIVE mg/dL (NEGATIVE) 07/18/17 21:30 Urine Blood LARGE (NEGATIVE) H 07/18/17 21:30 Urine Nitrate NEGATIVE (NEGATIVE) 07/18/17 21:30 Urine Bilirubin NEGATIVE (NEGATIVE) 07/18/17 21:30 Urine Urobilinogen 0.2 E.U./dL (0.2 - 1.0) 07/18/17 21:30 Ur Leukocyte Esterase SMALL (NEGATIVE) H 07/18/17 21:30 Urine RBC 50-100 /hpf (0-5) H 07/18/17 21:30 Urine WBC 6-10 /hpf (0-5) H 07/18/17 21:30 Ur Epithelial Cells FEW /lpf (FEW) 07/18/17 21:30 Urine Bacteria MANY /hpf (NONE SEEN) 07/18/17 21:30 Ur Random Sodium 28 mmol/L 07/19/17 22:30 Urine Creatinine 26.3 mg/dl (Not Estab.) 07/19/17 22:30 Urine Microalbumin 2398.5 ug/mL (Not Estab.) 07/19/17 22:30 Microalb/Creat Ratio 9119.8 07/19/17 22:30 Stool Occult Blood NEGATIVE (NEGATIVE) 07/24/17 03:37 Vancomycin Trough 30.5 ug/mL (10-20) H 08/03/17 08:08 Random Vancomycin 18.2 ug/mL (5.0-40.0) 08/05/17 05:10 Blood Type O NEGATIVE 07/20/17 08:15 Antibody Screen NEGATIVE 07/20/17 08:15 - Physical Exam Vitals and I&O: Vital Signs Temp 96.7 F 08/06/17 12:00 Pulse 81 08/06/17 17:14 Resp 17 08/06/17 15:00 BP 125/50 08/06/17 15:00 Pulse Ox 100 08/06/17 17:14 Intake & Output 08/05/17 08/06/17 08/06/17 18:59 06:59 18:59 Intake Total 8346 131 6703 Output Total 1400 Balance 047 184 4848 Weight (lbs) 89.811 kg Intake: Intake, IV Amount 9512 705 8161 Meropenem 1 gm In 100 100 100 Dextrose 5% 100 ml @ 100 mls/hr IV Q12H [facility] Rx#: [id number] Sodium Chloride 0.9% 1, 1000 1000 000 ml @ 75 mls/hr IV . [id number] [facility] Rx#:[id number] Vancomycin HCl 750 mg In 250 Sodium Chloride 0.9% 250 ml @ 250 mls/hr IV Q48H [facility] Rx#:[id number] Tube Feeding 840 Output: Urine 1000 Stool 400 Other: Stool Characteristics Liquid Liquid Liquid Active Medications: Current Medications Acetaminophen (Tylenol 650mg/20.3ml Suspension) 650 mg GT Q4H PRN PRN Reason: Pain or Fever >101 Stop: 09/16/17 23:47 Last Admin: 07/22/17 00:35 Dose: 650 mg Albuterol/Ipratropium (Duoneb Neb) 3 ml HHN Q6HRT [facility] Stop: 09/17/17 12:59 Last Admin: 08/06/17 13:28 Dose: 3 ml Albuterol/Ipratropium (Duoneb Neb) 3 ml HHN Q2HR PRN PRN Reason: Shortness of Breath Stop: 09/16/17 23:47 Ascorbic Acid (Vitamin C) 500 mg GT DAILY [facility] Stop: 09/17/17 08:59 Last Admin: 08/06/17 09:27 Dose: 500 mg Bisacodyl (Dulcolax 10 Mg Supp) 10 mg RC DAILY PRN PRN Reason: constip Stop: 09/16/17 23:47 Calamine/Phenol (Calmoseptine) 1 appl TP QID PRN PRN Reason: Skin Irritation Stop: 09/24/17 09:35 Calamine/Phenol (Calmoseptine) 1 appl TP QID [facility] Stop: 09/24/17 12:59 Last Admin: 08/06/17 12:29 Dose: 1 appl Carvedilol (Coreg) 6.25 mg GT BID [facility] Stop: 09/17/17 08:59 Last Admin: 08/06/17 09:25 Dose: Not Given [place] Oil/[place] Balsam/Trypsin (Venelex) 1 appl TP DAILY [facility] Stop: 09/25/17 08:59 Last Admin: 08/06/17 09:28 Dose: 1 appl Chlorhexidine Gluconate (Peridex) 15 ml MM 0800,2000 [facility] Stop: 09/17/17 07:59 Last Admin: 08/06/17 09:28 Dose: 15 ml Docusate Sodium (Colace) 100 mg GT BID PRN PRN Reason: Constipation Famotidine (Pepcid) 20 mg GT Q12H [facility] Stop: 09/16/17 23:44 Last Admin: 08/06/17 12:28 Dose: 20 mg Guaifenesin (Robitussin) 200 mg PO Q4HR PRN PRN Reason: Cough or Congestion Stop: 09/16/17 23:54 Heparin Sodium (Porcine) (Heparin) 5,000 units SUBQ Q12HR [facility] Stop: 09/17/17 08:59 Last Admin: 08/06/17 09:30 Dose: 5,000 units Meropenem 1 gm/ Dextrose 100 mls @ 100 mls/hr IV Q12H [facility] Stop: 09/30/17 14:59 Last Infusion: 08/06/17 16:35 Dose: Infused Sodium Chloride (Nacl 0.9%) 1,000 mls @ 75 mls/hr IV .[id number] [facility] Stop: 10/01/17 15:29 Last Admin: 08/06/17 07:20 Dose: 75 mls/hr Vancomycin HCl 750 mg/ Sodium (Chloride) 250 mls @ 250 mls/hr IV Q48H [facility] Stop: 10/04/17 20:59 Last Infusion: 08/05/17 22:10 Dose: Infused Insulin Aspart (Novolog) 0 units SUBQ Q6HR [facility] PRN Reason: Protocol Stop: 09/18/17 17:59 Last Admin: 08/06/17 14:03 Dose: Not Given Insulin Detemir (Levemir Insulin) 24 units SUBQ BID [facility] PRN Reason: Protocol Stop: 09/20/17 08:59 Last Admin: 08/06/17 09:40 Dose: 24 units Lactobacillus Rhamnosus (Culturelle 15b) 1 each PO DAILY [facility] Stop: 09/30/17 10:59 Last Admin: 08/06/17 09:29 Dose: 1 each Magnesium Hydroxide (Milk Of Magnesia) 30 ml GT HS PRN PRN Reason: Constipation Stop: 09/16/17 23:47 Metoclopramide HCl (Reglan) 10 mg GT Q8H [facility] Stop: 09/20/17 13:01 Last Admin: 08/06/17 12:27 Dose: 10 mg Miscellaneous (Vancomycin Iv Per Pharmacy) 1 ea MC PRN [facility] Stop: 09/16/17 23:44 Miscellaneous (Clinical Monitoring) 1 ea MC PRN PRN PRN Reason: RENAL DOSE [facility] Stop: 09/17/17 08:23 Miscellaneous (Probiotic Screen) 1 ea MC PRN PRN PRN Reason: PROTOCOL Stop: 09/17/17 10:14 Miscellaneous (Vte Chemical Prophylaxis Screen/ Admission) 1 ea MC PRN PRN PRN Reason: PROTOCOL Stop: 09/17/17 13:47 Morphine Sulfate (Morphine) 2 mg IVP Q4H PRN PRN Reason: Pain (Severe) Stop: 09/16/17 23:53 Last Admin: 07/24/17 23:27 Dose: 2 mg Ondansetron HCl (Zofran) 4 mg IV Q8H PRN PRN Reason: Nausea / Vomiting Stop: 09/16/17 23:54 Last Admin: 07/21/17 18:48 Dose: 4 mg Sodium Phosphate (Fleet Enema) 135 ml RC Q48H PRN PRN Reason: Constipation Stop: 09/16/17 23:47 Zinc Sulfate (Zinc Sulfate) 220 mg GT DAILY [facility] Stop: 09/17/17 08:59 Last Admin: 08/06/17 09:30 Dose: 220 mg General: weak, congested, demented, obtunded HEENT: NC/AT, PERRLA Neck: Supple, + trach Lungs: congested, rales, ronchi Cardiovascular: RRR, without murmur Abdomen: soft, non-tender, non-distended, +GT, positive bowel sound Extremities: excoriation, ulcers stage 3 Neurological: bedbound, spastic - Procedures Procedures: Procedures Procedure Code Date RESPIRATORY VENTILATION, GREATER THAN 96 CONSECUTIVE HOURS [id number] 07/18/17 Internal Medicine Assmt/Plan - Assessment Assessment: fever, leukocytosis sepsis uti cdiff chronic respiratory failure VDRF leukocytosis hematuria-improved htn dm2 cad chf anemia tracheostomy status hypokalemia acute renal insufficiency elevated troponin mild protein calorie malnutrition acute uti - Plan Plan: LTAC EVAL contact isolation continue with ivabx renal follow up monitor h/h follow up labs in am vent support continue current plan of care - Plan Plan: cont on iv abx monitor wbc cpm dw rn Nutritional Asmnt/Malnutr-PDOC - Dietary Evaluation Malnutrition Findings (Please click <Entered> for more info): Nutritional Asmnt/Malnutrition Start: 07/19/17 17: 24 Text: Status: Complete Freq: Document 07/19/17 17:25 JEIMY (Rec: 07/19/17 17:43 [email or web address] [id number]) Nutritional Asmnt/Malnutrition Patient General Information Nutritional Screening High Risk Consult Diagnosis Sepsis, UTI Pertinent Medical Hx/Surgical Hx HTN, DM, CAD, CHF, chronic resperatory failure, anemia, PEG/Gtube, tracheostomy Subjective Information Consult received for elevated BG. Pt seen lying in bed, on vent, non verbal comminication noted. Not able to obtain nutrition hx. Spoke with RN, no nutrition plan at this time . Current Diet Order/ Nutrition Support NPO Pertinent Medications Vitamin C, novolog, cultrelle, reglan, vancomycin, , piperacillin, Nacl 0.9%, Zinc Pertinent Labs 07/19 Na 132, K 5.3, Cl 97L, BUN 137, Cr 2.7, Glu 353, POC 324-394, A1C 6.2 Nutritional Hx/Data Height 1.57 m Height (Calculated Centimeters) 157.5 Current Weight (lbs) 80.83 kg Weight (Calculated Kilograms) 80.8 Weight (Calculated Grams) 46262.2 [place] Body Weight 110 % [place] Body Weight 162 Body Mass Index (BMI) 32.5 Weight Status Obese GI Symptoms GI Symptoms None Last BM none Usual diet at home Glucerna 1.5 60ml/hr x 20hr daily at [facility] Skin Integrity/Comment: decubitus ulceration to sacrum Estimated Nutritional Goals BEE in Kcals: Adj wt of IBW Calories/Kcals/Kg 30-35 Kcals Calculated Protein: Adj wt of IBW Protein g/k.2-1.5 Protein Calculated 69-87 Fluid: ml Nutritional Problem 2. Problem Problem increased nutrition needs ( calorie and protein) Etiology increased metabolic demand for healing Signs/Symptoms: sepsis 1. Problem Problem altered nutrition related lab values Etiology hx of DM, acute renal insufficiency Signs/Symptoms: BUN 137, Cr 2.7, Glu 353, POC 324-394, A1C 6.2 Malnutrition Alert Protein-Calorie Malnutrition N/A Is there a minimum of two criteria No selected? Query Text:Check all the applicable criteria. A minimum of two criteria are recommended for diagnosis of either severe or non-severe malnutrition. Intervention/Recommendation Comments 1. Monitor NPO status. 2. If enteral feeding needed, recommend to start Diabetisource AC at 30ml/hr continuous. Increased to goal rate of 60ml/hr continuous as tolerated. This will provide 1728kcal, 86g protein and 1179ml water, meeting 100% of nutritional needs. 3. Monitor wt, labs and skin integrity 4. F/U as high risk in 2-3 days, 07/21-07/22 Expected Outcomes/Goals Expected Outcomes/Goals 1. Pt to meet at least 75% of nutritional needs in 2-3 days 2. Wt stability, skin to remain intact, labs to improve .
[2017-08-06] MEDS: Morphine Sulfate 2 mg/mL 1mL Syr IVP PRN (21:13)
[2017-08-07] MEDS: Albuterol/Ipratropium Neb 3 ML AERS HHN SCH ×4 (00:07→19:17)
[2017-08-07] MEDS: INSULIN ASPART, RECOMBINANT 100 UNITS/ML SUBQ SCH ×4 (00:16→18:17)
--- NOTE | 2017-08-07 00:28 | Consultation ---
DATE OF CONSULTATION: 08/06/2017 HISTORY OF PRESENT ILLNESS: The patient is 62-year-old. Admitted on 07/18/2017 with hematuria and sepsis. The patient here noted to have staring spells, somewhat deviated eyes to the right, questionable seizures. PAST MEDICAL HISTORY: Chronic respiratory failure. She has tracheostomy and on a vent. She is in a prison. History of hypertension, diabetes, coronary artery disease, CHF. SURGERIES: PEG and tracheostomy. MEDICATIONS: As per reconciliation. Here, the patient is on Coreg, insulin, meropenem, Reglan. REVIEW OF SYSTEMS: The patient, tracheostomy on a vent. She will open eyes a little bit, but tends to look to the right, no real clear cut interaction. PHYSICAL EXAMINATION: VITAL SIGNS: 98.2, blood pressure 146/50, pulse is 70. NECK: Supple, no neck bruits. HEART: Sounds S1, S2. LUNGS: Clear. NEUROLOGIC: The patient is lying in bed. Eyes are closed, to stimulation she will open her eyes. Eyes are tended to be deviated to the right. The patient is unable to stare to the right. Corneal reflex present, pupils react. MOTOR: She really has no movement of the upper extremity. I do not see much more in the lower extremity even to stimulation. INVESTIGATIONS: EEG shows diffuse slowing. No seizure activity. IMPRESSION: 1. Encephalopathy. 2. Rule out possible stroke with eyes deviated to the right. 3. Respiratory failure. 4. Sepsis. 5. The patient has respiratory failure, ventricular dependent. 6. Hematuria, better. 7. Diabetes. 8. Hypertension. PLAN: Possibly do CT scan of head. Consider possible antiepileptic medications. JOB# [id number]
[2017-08-07 04:59] LABS: % BASOPHILS 0.4 % (0.0-2.0); % EOSINOPHILS 3.8 % (0.0-5.0); % LYMPHOCYTES 18.2 % (20.0-50.0); % MONOCYTES 5.6 % (2.0-10.0); EOSINOPHILE ABSOLUTE 0.5 Th/cmm (0.1-0.4); HEMATOCRIT 22.8 % (41.0-60); LYMPHOCYTE ABSOLUTE 2.3 Th/cmm (1.5-3.0); MEAN CELL VOLUME 86.1 fl (81-100); MEAN CORPUSCULAR HEMOGLOBIN 28.2 pg (27.0-31.0); MEAN CORPUSCULAR HGB CONC 32.8 pg (28.0-36.0); MONOCYTE ABSOLUTE 0.7 Th/cmm (0.3-1.0); NEUTROPHILE ABSOLUTE 8.9 Th/cmm (1.8-8.0); PLATELET COUNT 306 Th/cmm (150-400); RED BLOOD COUNT 2.64 Mil/cmm (3.80-5.10); RED CELL DISTRIBUTION WIDTH 14.2 % (11.5-20.0)
[2017-08-07 05:12] LABS: WHITE BLOOD COUNT 12.4 Th/cmm (4.8-10.8)
[2017-08-07 05:13] LABS: HEMOGLOBIN 7.5 gm/dL (12-16); INR 0.94 (0.5-1.4); PROTHROMBIN TIME (TEST) 9.8 SECONDS (9.5-11.5)
[2017-08-07 05:18] LABS: ANION GAP 8.9 (7.0-16.0); BUN - UREA NITROGEN 48 mg/dL (7-25); CALCIUM SERUM 8.2 mg/dL (8.6-10.3); CARBON DIOXIDE 23.3 mEq/L (21.0-31.0); CHLORIDE 106 mEq/L (98-107); CREATININE - SERUM 0.9 mg/dL (0.6-1.2); GFR AFRICAN-AMERICAN > 60.0 ml/min (>90); GFR NON AFRICAN-AMERICAN > 60.0 ml/min; GLUCOSE 89 mg/dL (70-105); POTASSIUM SERUM 4.2 mEq/L (3.5-5.1); SODIUM SERUM 134 mEq/L (136-145)
[2017-08-07] MEDS: Chlorhexidine Gluconate 0.12% 15mL Mouthwash MM SCH ×2 (08:00→20:56)
[2017-08-07] MEDS: Menthol/Zinc Oxide Oint 113gm Tube TP SCH ×4 (09:48→20:56)
[2017-08-07] MEDS: Lactobacillus Rhamnosus GG 15 Billion CFU CAP.SPRINK PO SCH (09:49)
[2017-08-07] MEDS: Venelex 60gm Tube TP SCH (09:50)
[2017-08-07] MEDS: Multivitamin w/ Minerals Tab GT SCH (09:50)
[2017-08-07] MEDS: Insulin Detemir 100 units/mL 10mL Vial SUBQ SCH ×2 (09:52→18:00)
--- NOTE | 2017-08-07 12:52 | Internal Medicine Prog Note ---
Internal Medicine Subjective - Subjective Patient seen and examined:: with staff, chart reviewed Patient is:: awake, non-verbal, non-interactive, in bed, stares blankly Patient Complaints of:: congestion, bloated Per staff patient has:: tolerating meds Internal Medicine Objective - Results Result Diagrams: 08/07/17 04:40 08/07/17 04:40 Recent Labs: Laboratory Last Values WBC 12.4 Th/cmm (4.8-10.8) H 08/07/17 04:40 RBC 2.64 Mil/cmm (3.80-5.10) L 08/07/17 04:40 Hgb 7.5 gm/dL (12-16) L* 08/07/17 04:40 Hct 22.8 % (41.0-60) L 08/07/17 04:40 MCV 86.1 fl (81-100) 08/07/17 04:40 MCH 28.2 pg (27.0-31.0) 08/07/17 04:40 MCHC Differential 32.8 pg (28.0-36.0) 08/07/17 04:40 RDW 14.2 % (11.5-20.0) 08/07/17 04:40 Plt Count 306 Th/cmm (150-400) 08/07/17 04:40 MPV 10.0 fl 08/07/17 04:40 Neutrophils % 72.0 % (40.0-80.0) 08/07/17 04:40 Band Neutrophils % 4 % (0-10) 08/04/17 04:45 Lymphocytes % 18.2 % (20.0-50.0) L 08/07/17 04:40 Monocytes % 5.6 % (2.0-10.0) 08/07/17 04:40 Eosinophils % 3.8 % (0.0-5.0) 08/07/17 04:40 Basophils % 0.4 % (0.0-2.0) 08/07/17 04:40 Neutrophils (Manual) 69 % (40-80) 08/04/17 04:45 Lymphocytes 24 % (20-50) 08/04/17 04:45 Monocytes 3 % (2-10) 08/04/17 04:45 Eosinophils 1 % (0-5) 08/02/17 06:30 Hypochromia 1+ 07/30/17 04:30 Platelet Estimate ADEQUATE (NORMAL) 08/04/17 04:45 Polychromasia 1+ 07/30/17 04:30 Smear Path Review YES 07/18/17 22:15 Eos Smear Source URINE 07/19/17 22:30 Eos Smear Total Cells NONE SEEN (NONE SEEN) 07/19/17 22:30 PT 9.8 SECONDS (9.5-11.5) 08/07/17 04:40 INR 0.94 (0.5-1.4) 08/07/17 04:40 PTT (Actin FS) 25.6 SECONDS (26.0-38.0) L 08/07/17 04:40 Specimen Source Arterial 07/25/17 14:15 Sample Site RIGHT BRACHIAL 07/25/17 14:15 pH 7.48 (7.35-7.45) H 07/25/17 14:15 pCO2 33.0 mmHg (35.0-45.0) L 07/25/17 14:15 pO2 144.0 mmHg (80.0-100.0) H 07/25/17 14:15 HCO3 26.1 mEq/L (20.0-26.0) H 07/25/17 14:15 Base Excess 1.5 mEq/L (-3.0-3.0) 07/25/17 14:15 O2 Saturation 99.0 % (92.0-100.0) 07/25/17 14:15 Cricket Test Positive 07/25/17 14:15 Vent Rate 12 07/25/17 14:15 Inspired O2 35 07/25/17 14:15 Tidal Volume 500 07/25/17 14:15 PEEP 5 07/25/17 14:15 Pressure (ins/psv/peep) N/A 07/25/17 14:15 Critical Value HSTEHNO 07/25/17 14:15 Sodium 134 mEq/L (136-145) L 08/07/17 04:40 Potassium 4.2 mEq/L (3.5-5.1) 08/07/17 04:40 Chloride 106 mEq/L (98-107) 08/07/17 04:40 Carbon Dioxide 23.3 mEq/L (21.0-31.0) 08/07/17 04:40 Anion Gap 8.9 (7.0-16.0) 08/07/17 04:40 BUN 48 mg/dL (7-25) H 08/07/17 04:40 Creatinine 0.9 mg/dL (0.6-1.2) 08/07/17 04:40 Est GFR ( Amer) > 60.0 ml/min (>90) 08/07/17 04:40 Est GFR (Non-Af Amer) > 60.0 ml/min 08/07/17 04:40 BUN/Creatinine Ratio 53.3 08/07/17 04:40 Glucose 89 mg/dL (70-105) 08/07/17 04:40 POC Glucose 106 MG/DL (70 - 105) H 08/07/17 11:33 Hemoglobin A1c % 6.2 % (4.0-6.0) H 07/18/17 23:30 Plasma/Ser Osmolality 344 mOsmol/kg (280-301) H 07/19/17 23:30 Whole Bld Lactic Acid 0.61 mmol/L (0.60-1.99) 07/20/17 04:10 Uric Acid 9.5 mg/dL (2.3-6.6) H 07/20/17 04:10 Calcium 8.2 mg/dL (8.6-10.3) L 08/07/17 04:40 Phosphorus 4.5 mg/dL (2.5-5.0) 07/20/17 04:10 Magnesium 1.8 mg/dL (1.9-2.7) L 07/28/17 05:00 Iron 36 ug/dL (27-139) 07/30/17 04:30 TIBC 160 ug/dL (250-450) L 07/30/17 04:30 Iron Saturation 23 % (15-55) 07/30/17 04:30 Unsaturated IBC 124 ug/dL (118-369) 07/30/17 04:30 Total Bilirubin 0.3 mg/dL (0.3-1.0) 08/01/17 05:55 AST 9 U/L (13-39) L 08/01/17 05:55 ALT 11 U/L (7-52) 08/01/17 05:55 Alkaline Phosphatase 111 U/L (34-104) H 08/01/17 05:55 Ammonia 32 umol/L (16-53) 08/04/17 04:45 Creatine Kinase 26 U/L (30-223) L 07/18/17 22:15 Troponin I 0.27 ng/mL (0.01-0.05) H* 07/18/17 22:15 B-Natriuretic Peptide 341.0 pg/mL (5.0-100.0) H 08/07/17 04:40 Total Protein 6.4 gm/dL (6.0-8.3) 08/01/17 05:55 Albumin 2.9 gm/dL (3.7-5.3) L 08/01/17 05:55 Globulin 3.5 gm/dL 08/01/17 05:55 Albumin/Globulin Ratio 0.8 (1.0-1.8) L 08/01/17 05:55 Vitamin B12 >1999 pg/mL (232-1245) H 07/30/17 04:30 Folic Acid >20.0 ng/mL (>3.0) 07/30/17 04:30 TSH 2.30 uIU/ml (0.34-5.60) 07/19/17 04:15 Urine Source [place] 07/18/17 21:30 Urine Color RED 07/18/17 21:30 Urine Clarity CLOUDY (CLEAR) H 07/18/17 21:30 Urine pH 7.5 (4.6 - 8.0) 07/18/17 21:30 Ur Specific [place] 1.025 (1.005-1.030) 07/18/17 21:30 Urine Protein >=300 mg/dL (NEGATIVE) 07/18/17 21:30 Urine Glucose (UA) NEGATIVE mg/dL (NEGATIVE) 07/18/17 21:30 Urine Ketones NEGATIVE mg/dL (NEGATIVE) 07/18/17 21:30 Urine Blood LARGE (NEGATIVE) H 07/18/17 21:30 Urine Nitrate NEGATIVE (NEGATIVE) 07/18/17 21:30 Urine Bilirubin NEGATIVE (NEGATIVE) 07/18/17 21:30 Urine Urobilinogen 0.2 E.U./dL (0.2 - 1.0) 07/18/17 21:30 Ur Leukocyte Esterase SMALL (NEGATIVE) H 07/18/17 21:30 Urine RBC 50-100 /hpf (0-5) H 07/18/17 21:30 Urine WBC 6-10 /hpf (0-5) H 07/18/17 21:30 Ur Epithelial Cells FEW /lpf (FEW) 07/18/17 21:30 Urine Bacteria MANY /hpf (NONE SEEN) 07/18/17 21:30 Ur Random Sodium 28 mmol/L 07/19/17 22:30 Urine Creatinine 26.3 mg/dl (Not Estab.) 07/19/17 22:30 Urine Microalbumin 2398.5 ug/mL (Not Estab.) 07/19/17 22:30 Microalb/Creat Ratio 9119.8 07/19/17 22:30 Stool Occult Blood NEGATIVE (NEGATIVE) 07/24/17 03:37 Vancomycin Trough 30.5 ug/mL (10-20) H 08/03/17 08:08 Random Vancomycin 17.6 ug/mL (5.0-40.0) 08/07/17 04:40 Blood Type O NEGATIVE 07/20/17 08:15 Antibody Screen NEGATIVE 07/20/17 08:15 - Physical Exam Vitals and I&O: Vital Signs Temp 97.4 F 08/07/17 12:00 Pulse 65 08/07/17 12:00 Resp 16 08/07/17 12:00 BP 137/53 08/07/17 12:00 Pulse Ox 100 08/07/17 12:00 Intake & Output 08/06/17 08/07/17 08/07/17 18:59 06:59 18:59 Intake Total 1100 2642.5 Output Total 1200 Balance 1100 1442.5 Weight (lbs) 88.904 kg Intake: Intake, IV Amount 1100 1652.5 Meropenem 1 gm In 100 100 Dextrose 5% 100 ml @ 100 mls/hr IV Q12H [facility] Rx#: [id number] Sodium Chloride 0.9% 1, 1000 1552.5 000 ml @ 75 mls/hr IV . [id number] [facility] Rx#:[id number] Oral 0 Tube Feeding 840 Other 150 Output: Urine 900 Stool 300 Other: Stool Characteristics Liquid Liquid Brown Active Medications: Current Medications Acetaminophen (Tylenol 650mg/20.3ml Suspension) 650 mg GT Q4H PRN PRN Reason: Pain or Fever >101 Stop: 09/16/17 23:47 Last Admin: 07/22/17 00:35 Dose: 650 mg Albuterol/Ipratropium (Duoneb Neb) 3 ml HHN Q6HRT [facility] Stop: 09/17/17 12:59 Last Admin: 08/07/17 06:24 Dose: 3 ml Albuterol/Ipratropium (Duoneb Neb) 3 ml HHN Q2HR PRN PRN Reason: Shortness of Breath Stop: 09/16/17 23:47 Ascorbic Acid (Vitamin C) 500 mg GT DAILY [facility] Stop: 09/17/17 08:59 Last Admin: 08/07/17 09:50 Dose: 500 mg Bisacodyl (Dulcolax 10 Mg Supp) 10 mg RC DAILY PRN PRN Reason: constip Stop: 09/16/17 23:47 Calamine/Phenol (Calmoseptine) 1 appl TP QID PRN PRN Reason: Skin Irritation Stop: 09/24/17 09:35 Calamine/Phenol (Calmoseptine) 1 appl TP QID [facility] Stop: 09/24/17 12:59 Last Admin: 08/07/17 09:48 Dose: 1 appl Carvedilol (Coreg) 6.25 mg GT BID [facility] Stop: 09/17/17 08:59 Last Admin: 08/07/17 09:49 Dose: 6.25 mg [place] Oil/[place] Balsam/Trypsin (Venelex) 1 appl TP DAILY [facility] Stop: 09/25/17 08:59 Last Admin: 08/07/17 09:50 Dose: 1 appl Chlorhexidine Gluconate (Peridex) 15 ml MM 0800,2000 [facility] Stop: 09/17/17 07:59 Last Admin: 08/07/17 08:00 Dose: 15 ml Docusate Sodium (Colace) 100 mg GT BID PRN PRN Reason: Constipation Famotidine (Pepcid) 20 mg GT Q12H [facility] Stop: 09/16/17 23:44 Last Admin: 08/07/17 11:47 Dose: 20 mg Guaifenesin (Robitussin) 200 mg PO Q4HR PRN PRN Reason: Cough or Congestion Stop: 09/16/17 23:54 Meropenem 1 gm/ Dextrose 100 mls @ 100 mls/hr IV Q12H [facility] Stop: 09/30/17 14:59 Last Infusion: 08/07/17 03:20 Dose: Infused Sodium Chloride (Nacl 0.9%) 1,000 mls @ 75 mls/hr IV .[id number] [facility] Stop: 10/01/17 15:29 Last Infusion: 08/07/17 06:00 Dose: 75 mls/hr Vancomycin HCl 750 mg/ Sodium (Chloride) 250 mls @ 250 mls/hr IV Q48H [facility] Stop: 10/04/17 20:59 Last Infusion: 08/05/17 22:10 Dose: Infused Insulin Aspart (Novolog) 0 units SUBQ Q6HR [facility] PRN Reason: Protocol Stop: 09/18/17 17:59 Last Admin: 08/07/17 11:46 Dose: Not Given Insulin Detemir (Levemir Insulin) 24 units SUBQ BID [facility] PRN Reason: Protocol Stop: 09/20/17 08:59 Last Admin: 08/07/17 09:52 Dose: Not Given Lactobacillus Rhamnosus (Culturelle 15b) 1 each PO DAILY [facility] Stop: 09/30/17 10:59 Last Admin: 08/07/17 09:49 Dose: 1 each Magnesium Hydroxide (Milk Of Magnesia) 30 ml GT HS PRN PRN Reason: Constipation Stop: 09/16/17 23:47 Metoclopramide HCl (Reglan) 10 mg GT Q8H [facility] Stop: 09/20/17 13:01 Last Admin: 08/07/17 12:08 Dose: 10 mg Miscellaneous (Vancomycin Iv Per Pharmacy) 1 ea MC PRN [facility] Stop: 09/16/17 23:44 Miscellaneous (Clinical Monitoring) 1 ea PRN PRN PRN Reason: RENAL DOSE MERREM Stop: 09/17/17 08:23 Miscellaneous (Probiotic Screen) 1 ea PRN PRN PRN Reason: PROTOCOL Stop: 09/17/17 10:14 Miscellaneous (Vte Chemical Prophylaxis Screen/ Admission) 1 ea PRN PRN PRN Reason: PROTOCOL Stop: 09/17/17 13:47 Morphine Sulfate (Morphine) 2 mg IVP Q4H PRN PRN Reason: Pain (Severe) Stop: 09/16/17 23:53 Last Admin: 08/06/17 21:13 Dose: 2 mg Ondansetron HCl (Zofran) 4 mg IV Q8H PRN PRN Reason: Nausea / Vomiting Stop: 09/16/17 23:54 Last Admin: 07/21/17 18:48 Dose: 4 mg Sodium Phosphate (Fleet Enema) 135 ml RC Q48H PRN PRN Reason: Constipation Stop: 09/16/17 23:47 Zinc Sulfate (Zinc Sulfate) 220 mg GT DAILY [facility] Stop: 09/17/17 08:59 Last Admin: 08/07/17 09:49 Dose: 220 mg General: weak, congested, demented, obtunded HEENT: NC/AT, PERRLA Neck: Supple, + trach Lungs: congested, rales, ronchi Cardiovascular: RRR, without murmur Abdomen: soft, non-tender, non-distended, +GT, positive bowel sound Extremities: excoriation, ulcers stage 3 Neurological: bedbound, spastic - Procedures Procedures: Procedures Procedure Code Date RESPIRATORY VENTILATION, GREATER THAN 96 CONSECUTIVE HOURS [id number] 07/18/17 Internal Medicine Assmt/Plan - Assessment Assessment: fever, leukocytosis sepsis uti cdiff chronic respiratory failure VDRF leukocytosis hematuria-improved htn dm2 cad chf anemia tracheostomy status hypokalemia acute renal insufficiency elevated troponin mild protein calorie malnutrition acute uti - Plan Plan: LTAC EVAL contact isolation continue with ivabx renal follow up monitor h/h follow up labs in am vent support continue current plan of care - Plan Plan: cont on iv abx monitor wbc cpm dw [facility] Nutritional Asmnt/Malnutr-PDOC - Dietary Evaluation Malnutrition Findings (Please click <Entered> for more info): Nutritional Asmnt/Malnutrition Start: 07/19/17 17: 24 Text: Status: Complete Freq: Document 07/19/17 17:25 HENG (Rec: 07/19/17 17:43 [facility] Nutritional Asmnt/Malnutrition Patient General Information Nutritional Screening High Risk Consult Diagnosis Sepsis, UTI Pertinent Medical Hx/Surgical Hx HTN, DM, CAD, CHF, chronic resperatory failure, anemia, PEG/Gtube, tracheostomy Subjective Information Consult received for elevated BG. Pt seen lying in bed, on vent, non verbal comminication noted. Not able to obtain nutrition hx. Spoke with RN, no nutrition plan at this time . Current Diet Order/ Nutrition Support NPO Pertinent Medications Vitamin C, novolog, cultrelle, reglan, vancomycin, , piperacillin, Nacl 0.9%, Zinc Pertinent Labs 07/19 Na 132, K 5.3, Cl 97L, BUN 137, Cr 2.7, Glu 353, POC 324-394, A1C 6.2 Nutritional Hx/Data Height 1.57 m Height (Calculated Centimeters) 157.5 Current Weight (lbs) 80.83 kg Weight (Calculated Kilograms) 80.8 Weight (Calculated Grams) 59724.2 [place] Body Weight 110 % [place] Body Weight 162 Body Mass Index (BMI) 32.5 Weight Status Obese GI Symptoms GI Symptoms None Last BM none Usual diet at home Glucerna 1.5 60ml/hr x 20hr daily at [facility] Skin Integrity/Comment: decubitus ulceration to sacrum Estimated Nutritional Goals BEE in Kcals: Adj wt of IBW Calories/Kcals/Kg 30-35 Kcals Calculated Protein: Adj wt of IBW Protein g/k.2-1.5 Protein Calculated 69-87 Fluid: ml Nutritional Problem 2. Problem Problem increased nutrition needs ( calorie and protein) Etiology increased metabolic demand for healing Signs/Symptoms: sepsis 1. Problem Problem altered nutrition related lab values Etiology hx of DM, acute renal insufficiency Signs/Symptoms: BUN 137, Cr 2.7, Glu 353, POC 324-394, A1C 6.2 Malnutrition Alert Protein-Calorie Malnutrition N/A Is there a minimum of two criteria No selected? Query Text:Check all the applicable criteria. A minimum of two criteria are recommended for diagnosis of either severe or non-severe malnutrition. Intervention/Recommendation Comments 1. Monitor NPO status. 2. If enteral feeding needed, recommend to start Diabetisource AC at 30ml/hr continuous. Increased to goal rate of 60ml/hr continuous as tolerated. This will provide 1728kcal, 86g protein and 1179ml water, meeting 100% of nutritional needs. 3. Monitor wt, labs and skin integrity 4. F/U as high risk in 2-3 days, 07/21-07/22 Expected Outcomes/Goals Expected Outcomes/Goals 1. Pt to meet at least 75% of nutritional needs in 2-3 days 2. Wt stability, skin to remain intact, labs to improve .
[2017-08-07] MEDS: Sodium Chloride 0.9% 1,000 ML IV SCH ×2 (14:07→18:24)
--- NOTE | 2017-08-07 15:49 | General Progress Note ---
Subjective - Review of Systems Service Date: 08/07/17 Subjective: awake, comfortable, on vent Objective - Results Result Diagrams: 08/07/17 04:40 08/07/17 04:40 Recent Labs: Laboratory Last Values WBC 12.4 Th/cmm (4.8-10.8) H 08/07/17 04:40 RBC 2.64 Mil/cmm (3.80-5.10) L 08/07/17 04:40 Hgb 7.5 gm/dL (12-16) L* 08/07/17 04:40 Hct 22.8 % (41.0-60) L 08/07/17 04:40 MCV 86.1 fl (81-100) 08/07/17 04:40 MCH 28.2 pg (27.0-31.0) 08/07/17 04:40 MCHC Differential 32.8 pg (28.0-36.0) 08/07/17 04:40 RDW 14.2 % (11.5-20.0) 08/07/17 04:40 Plt Count 306 Th/cmm (150-400) 08/07/17 04:40 MPV 10.0 fl 08/07/17 04:40 Neutrophils % 72.0 % (40.0-80.0) 08/07/17 04:40 Band Neutrophils % 4 % (0-10) 08/04/17 04:45 Lymphocytes % 18.2 % (20.0-50.0) L 08/07/17 04:40 Monocytes % 5.6 % (2.0-10.0) 08/07/17 04:40 Eosinophils % 3.8 % (0.0-5.0) 08/07/17 04:40 Basophils % 0.4 % (0.0-2.0) 08/07/17 04:40 Neutrophils (Manual) 69 % (40-80) 08/04/17 04:45 Lymphocytes 24 % (20-50) 08/04/17 04:45 Monocytes 3 % (2-10) 08/04/17 04:45 Eosinophils 1 % (0-5) 08/02/17 06:30 Hypochromia 1+ 07/30/17 04:30 Platelet Estimate ADEQUATE (NORMAL) 08/04/17 04:45 Polychromasia 1+ 07/30/17 04:30 Smear Path Review YES 07/18/17 22:15 Eos Smear Source URINE 07/19/17 22:30 Eos Smear Total Cells NONE SEEN (NONE SEEN) 07/19/17 22:30 PT 9.8 SECONDS (9.5-11.5) 08/07/17 04:40 INR 0.94 (0.5-1.4) 08/07/17 04:40 PTT (Actin FS) 25.6 SECONDS (26.0-38.0) L 08/07/17 04:40 Specimen Source Arterial 07/25/17 14:15 Sample Site RIGHT BRACHIAL 07/25/17 14:15 pH 7.48 (7.35-7.45) H 07/25/17 14:15 pCO2 33.0 mmHg (35.0-45.0) L 07/25/17 14:15 pO2 144.0 mmHg (80.0-100.0) H 07/25/17 14:15 HCO3 26.1 mEq/L (20.0-26.0) H 07/25/17 14:15 Base Excess 1.5 mEq/L (-3.0-3.0) 07/25/17 14:15 O2 Saturation 99.0 % (92.0-100.0) 07/25/17 14:15 Cricket Test Positive 07/25/17 14:15 Vent Rate 12 07/25/17 14:15 Inspired O2 35 07/25/17 14:15 Tidal Volume 500 07/25/17 14:15 PEEP 5 07/25/17 14:15 Pressure (ins/psv/peep) N/A 07/25/17 14:15 Critical Value HSTEHNO 07/25/17 14:15 Sodium 134 mEq/L (136-145) L 08/07/17 04:40 Potassium 4.2 mEq/L (3.5-5.1) 08/07/17 04:40 Chloride 106 mEq/L (98-107) 08/07/17 04:40 Carbon Dioxide 23.3 mEq/L (21.0-31.0) 08/07/17 04:40 Anion Gap 8.9 (7.0-16.0) 08/07/17 04:40 BUN 48 mg/dL (7-25) H 08/07/17 04:40 Creatinine 0.9 mg/dL (0.6-1.2) 08/07/17 04:40 Est GFR ( Amer) > 60.0 ml/min (>90) 08/07/17 04:40 Est GFR (Non-Af Amer) > 60.0 ml/min 08/07/17 04:40 BUN/Creatinine Ratio 53.3 08/07/17 04:40 Glucose 89 mg/dL (70-105) 08/07/17 04:40 POC Glucose 106 MG/DL (70 - 105) H 08/07/17 11:33 Hemoglobin A1c % 6.2 % (4.0-6.0) H 07/18/17 23:30 Plasma/Ser Osmolality 344 mOsmol/kg (280-301) H 07/19/17 23:30 Whole Bld Lactic Acid 0.61 mmol/L (0.60-1.99) 07/20/17 04:10 Uric Acid 9.5 mg/dL (2.3-6.6) H 07/20/17 04:10 Calcium 8.2 mg/dL (8.6-10.3) L 08/07/17 04:40 Phosphorus 4.5 mg/dL (2.5-5.0) 07/20/17 04:10 Magnesium 1.8 mg/dL (1.9-2.7) L 07/28/17 05:00 Iron 36 ug/dL (27-139) 07/30/17 04:30 TIBC 160 ug/dL (250-450) L 07/30/17 04:30 Iron Saturation 23 % (15-55) 07/30/17 04:30 Unsaturated IBC 124 ug/dL (118-369) 07/30/17 04:30 Total Bilirubin 0.3 mg/dL (0.3-1.0) 08/01/17 05:55 AST 9 U/L (13-39) L 08/01/17 05:55 ALT 11 U/L (7-52) 08/01/17 05:55 Alkaline Phosphatase 111 U/L (34-104) H 08/01/17 05:55 Ammonia 32 umol/L (16-53) 08/04/17 04:45 Creatine Kinase 26 U/L (30-223) L 07/18/17 22:15 Troponin I 0.27 ng/mL (0.01-0.05) H* 07/18/17 22:15 B-Natriuretic Peptide 341.0 pg/mL (5.0-100.0) H 08/07/17 04:40 Total Protein 6.4 gm/dL (6.0-8.3) 08/01/17 05:55 Albumin 2.9 gm/dL (3.7-5.3) L 08/01/17 05:55 Globulin 3.5 gm/dL 08/01/17 05:55 Albumin/Globulin Ratio 0.8 (1.0-1.8) L 08/01/17 05:55 Vitamin B12 >1999 pg/mL (232-1245) H 07/30/17 04:30 Folic Acid >20.0 ng/mL (>3.0) 07/30/17 04:30 TSH 2.30 uIU/ml (0.34-5.60) 07/19/17 04:15 Urine Source [place] 07/18/17 21:30 Urine Color RED 07/18/17 21:30 Urine Clarity CLOUDY (CLEAR) H 07/18/17 21:30 Urine pH 7.5 (4.6 - 8.0) 07/18/17 21:30 Ur Specific [place] 1.025 (1.005-1.030) 07/18/17 21:30 Urine Protein >=300 mg/dL (NEGATIVE) 07/18/17 21:30 Urine Glucose (UA) NEGATIVE mg/dL (NEGATIVE) 07/18/17 21:30 Urine Ketones NEGATIVE mg/dL (NEGATIVE) 07/18/17 21:30 Urine Blood LARGE (NEGATIVE) H 07/18/17 21:30 Urine Nitrate NEGATIVE (NEGATIVE) 07/18/17 21:30 Urine Bilirubin NEGATIVE (NEGATIVE) 07/18/17 21:30 Urine Urobilinogen 0.2 E.U./dL (0.2 - 1.0) 07/18/17 21:30 Ur Leukocyte Esterase SMALL (NEGATIVE) H 07/18/17 21:30 Urine RBC 50-100 /hpf (0-5) H 07/18/17 21:30 Urine WBC 6-10 /hpf (0-5) H 07/18/17 21:30 Ur Epithelial Cells FEW /lpf (FEW) 07/18/17 21:30 Urine Bacteria MANY /hpf (NONE SEEN) 07/18/17 21:30 Ur Random Sodium 28 mmol/L 07/19/17 22:30 Urine Creatinine 26.3 mg/dl (Not Estab.) 07/19/17 22:30 Urine Microalbumin 2398.5 ug/mL (Not Estab.) 07/19/17 22:30 Microalb/Creat Ratio 9119.8 07/19/17 22:30 Stool Occult Blood NEGATIVE (NEGATIVE) 07/24/17 03:37 Vancomycin Trough 30.5 ug/mL (10-20) H 08/03/17 08:08 Random Vancomycin 17.6 ug/mL (5.0-40.0) 08/07/17 04:40 Blood Type O NEGATIVE 07/20/17 08:15 Antibody Screen NEGATIVE 07/20/17 08:15 - Physical Exam Vitals and I&O: Vital Signs Temp 97.4 F 08/07/17 12:00 Pulse 61 08/07/17 13:39 Resp 16 08/07/17 12:00 BP 137/53 08/07/17 12:00 Pulse Ox 100 08/07/17 13:39 Intake & Output 08/06/17 08/07/17 08/07/17 18:59 06:59 18:59 Intake Total 1100 2642.5 447.5 Output Total 1200 Balance 1100 1442.5 447.5 Weight (lbs) 88.904 kg Intake: Intake, IV Amount 1100 1652.5 447.5 Meropenem 1 gm In 100 100 Dextrose 5% 100 ml @ 100 mls/hr IV Q12H [facility] Rx#: [id number] Sodium Chloride 0.9% 1, 1000 1552.5 447.5 000 ml @ 75 mls/hr IV . [id number] [facility] Rx#:[id number] Oral 0 Tube Feeding 840 Other 150 Output: Urine 900 Stool 300 Other: Stool Characteristics Liquid Liquid Brown Active Medications: Current Medications Acetaminophen (Tylenol 650mg/20.3ml Suspension) 650 mg GT Q4H PRN PRN Reason: Pain or Fever >101 Stop: 09/16/17 23:47 Last Admin: 07/22/17 00:35 Dose: 650 mg Albuterol/Ipratropium (Duoneb Neb) 3 ml HHN Q6HRT [facility] Stop: 09/17/17 12:59 Last Admin: 08/07/17 13:39 Dose: 3 ml Albuterol/Ipratropium (Duoneb Neb) 3 ml HHN Q2HR PRN PRN Reason: Shortness of Breath Stop: 09/16/17 23:47 Ascorbic Acid (Vitamin C) 500 mg GT DAILY [facility] Stop: 09/17/17 08:59 Last Admin: 08/07/17 09:50 Dose: 500 mg Bisacodyl (Dulcolax 10 Mg Supp) 10 mg RC DAILY PRN PRN Reason: constip Stop: 09/16/17 23:47 Calamine/Phenol (Calmoseptine) 1 appl TP QID PRN PRN Reason: Skin Irritation Stop: 09/24/17 09:35 Calamine/Phenol (Calmoseptine) 1 appl TP QID [facility] Stop: 09/24/17 12:59 Last Admin: 08/07/17 14:06 Dose: 1 appl Carvedilol (Coreg) 6.25 mg GT BID [facility] Stop: 09/17/17 08:59 Last Admin: 08/07/17 09:49 Dose: 6.25 mg [place] Oil/[place] Balsam/Trypsin (Venelex) 1 appl TP DAILY [facility] Stop: 09/25/17 08:59 Last Admin: 08/07/17 09:50 Dose: 1 appl Chlorhexidine Gluconate (Peridex) 15 ml MM 0800,1999 [facility] Stop: 09/17/17 07:59 Last Admin: 08/07/17 08:00 Dose: 15 ml Docusate Sodium (Colace) 100 mg GT BID PRN PRN Reason: Constipation Famotidine (Pepcid) 20 mg GT Q12H [facility] Stop: 09/16/17 23:44 Last Admin: 08/07/17 11:47 Dose: 20 mg Guaifenesin (Robitussin) 200 mg PO Q4HR PRN PRN Reason: Cough or Congestion Stop: 09/16/17 23:54 Meropenem 1 gm/ Dextrose 100 mls @ 100 mls/hr IV Q12H [facility] Stop: 09/30/17 14:59 Last Admin: 08/07/17 14:04 Dose: 100 mls/hr Sodium Chloride (Nacl 0.9%) 1,000 mls @ 75 mls/hr IV .[id number] [facility] Stop: 10/01/17 15:29 Last Admin: 08/07/17 14:07 Dose: 75 mls/hr Vancomycin HCl 750 mg/ Sodium (Chloride) 250 mls @ 250 mls/hr IV Q48H [facility] Stop: 10/04/17 20:59 Last Infusion: 08/05/17 22:10 Dose: Infused Insulin Aspart (Novolog) 0 units SUBQ Q6HR [facility] PRN Reason: Protocol Stop: 09/18/17 17:59 Last Admin: 08/07/17 11:46 Dose: Not Given Insulin Detemir (Levemir Insulin) 24 units SUBQ BID [facility] PRN Reason: Protocol Stop: 09/20/17 08:59 Last Admin: 08/07/17 09:52 Dose: Not Given Lactobacillus Rhamnosus (Culturelle 15b) 1 each PO DAILY [facility] Stop: 09/30/17 10:59 Last Admin: 08/07/17 09:49 Dose: 1 each Magnesium Hydroxide (Milk Of Magnesia) 30 ml GT HS PRN PRN Reason: Constipation Stop: 09/16/17 23:47 Metoclopramide HCl (Reglan) 10 mg GT Q8H [facility] Stop: 09/20/17 13:01 Last Admin: 08/07/17 12:08 Dose: 10 mg Miscellaneous (Vancomycin Iv Per Pharmacy) 1 ea MC PRN [facility] Stop: 09/16/17 23:44 Miscellaneous (Clinical Monitoring) 1 ea MC PRN PRN PRN Reason: RENAL DOSE [facility] Stop: 09/17/17 08:23 Miscellaneous (Probiotic Screen) 1 ea MC PRN PRN PRN Reason: PROTOCOL Stop: 09/17/17 10:14 Miscellaneous (Vte Chemical Prophylaxis Screen/ Admission) 1 ea MC PRN PRN PRN Reason: PROTOCOL Stop: 09/17/17 13:47 Morphine Sulfate (Morphine) 2 mg IVP Q4H PRN PRN Reason: Pain (Severe) Stop: 09/16/17 23:53 Last Admin: 08/06/17 21:13 Dose: 2 mg Ondansetron HCl (Zofran) 4 mg IV Q8H PRN PRN Reason: Nausea / Vomiting Stop: 09/16/17 23:54 Last Admin: 07/21/17 18:48 Dose: 4 mg Sodium Phosphate (Fleet Enema) 135 ml RC Q48H PRN PRN Reason: Constipation Stop: 09/16/17 23:47 Zinc Sulfate (Zinc Sulfate) 220 mg GT DAILY [facility] Stop: 09/17/17 08:59 Last Admin: 08/07/17 09:49 Dose: 220 mg General: Alert, No acute distress HEENT: Atraumatic, Mucous membr. moist/pink Neck: Supple, +2 carotid pulse wo bruit Cardiovascular: Regular rate, Normal S1, Normal S2 Lungs: Other (few rhonchi) Abdomen: Soft, Distended Extremities: no Edema Neurological: Sensation intact Skin: no Rash Psych/Mental Status: Mood NL - Procedures Procedures: Procedures Procedure Code Date RESPIRATORY VENTILATION, GREATER THAN 96 CONSECUTIVE HOURS [id number] 07/18/17 Assessment/Plan - Assessment Assessment: ADELA Right Hydronephrosis, hydroureter w/ partial obstruction since has good UOP, improvement Kidney fnc Gross hematuria 2nd to trauma better Sepsis 2nd to Cx UTI RFVD Anemia CD Ess Htn Type 2 DM Met Enceph C. diff colitis Hypokalemia Hypernatremia - Plan Plan: Lab - Result Diagrams 07/20/17 04:10 07/20/17 04:10 Current Medications Acetaminophen (Tylenol 650mg/20.3ml Suspension) 650 mg GT Q4H PRN PRN Reason: Pain or Fever >101 Stop: 09/16/17 23:47 Albuterol/Ipratropium (Duoneb Neb) 3 ml HHN Q6HRT [facility] Stop: 09/17/17 12:59 Last Admin: 07/20/17 13:39 Dose: 3 ml Albuterol/Ipratropium (Duoneb Neb) 3 ml HHN Q2HR PRN PRN Reason: Shortness of Breath Stop: 09/16/17 23:47 Ascorbic Acid (Vitamin C) 500 mg GT DAILY [facility] Stop: 09/17/17 08:59 Last Admin: 07/20/17 09:07 Dose: 500 mg Bisacodyl (Dulcolax 10 Mg Supp) 10 mg RC DAILY PRN PRN Reason: constip Stop: 09/16/17 23:47 Carvedilol (Coreg) 3.125 mg GT BID [facility] Stop: 09/17/17 08:59 Last Admin: 07/20/17 16:43 Dose: 3.125 mg Chlorhexidine Gluconate (Peridex) 15 ml MM 08,1999 [facility] Stop: 09/17/17 07:59 Last Admin: 07/20/17 07:56 Dose: 15 ml Docusate Sodium (Colace) 100 mg GT BID PRN PRN Reason: Constipation Famotidine (Pepcid) 20 mg GT Q12H [facility] Stop: 09/16/17 23:44 Last Admin: 07/20/17 11:56 Dose: 20 mg Guaifenesin (Robitussin) 200 mg PO Q4HR PRN PRN Reason: Cough or Congestion Stop: 09/16/17 23:54 Heparin Sodium (Porcine) (Heparin) 5,000 units SUBQ Q12HR [facility] Stop: 09/17/17 08:59 Last Admin: 07/20/17 09:09 Dose: 5,000 units Piperacillin Sod/Tazobactam (Sod 2.25 gm/ Sodium Chloride) 100 mls @ 100 mls/ hr IV Q8H [facility] Stop: 09/17/17 08:59 Last Admin: 07/20/17 16:43 Dose: 100 mls/hr Vancomycin HCl 1 gm/ Dextrose 250 mls @ 165 mls/hr IV Q36H [facility] Stop: 09/18/17 01:59 Last Infusion: 07/20/17 04:00 Dose: Infused Sodium Chloride (Nacl 0.9%) 1,000 mls @ 100 mls/hr IV .Q10H [facility] Stop: 09/16/17 23:44 Last Admin: 07/20/17 02:00 Dose: 100 mls/hr Insulin Aspart (Novolog) 0 units SUBQ Q6HR [facility] PRN Reason: Protocol Stop: 09/18/17 17:59 Insulin Detemir (Levemir Insulin) 18 units SUBQ BID [facility] PRN Reason: Protocol Stop: 09/18/17 08:59 Last Admin: 07/20/17 16:44 Dose: 18 units Lactobacillus Rhamnosus (Culturelle) 1 each PO DAILY [facility] Stop: 09/18/17 08:59 Last Admin: 07/20/17 09:07 Dose: 1 each Magnesium Hydroxide (Milk Of Magnesia) 30 ml GT HS PRN PRN Reason: Constipation Stop: 09/16/17 23:47 Metoclopramide HCl (Reglan) 5 mg GT Q8H [facility] Stop: 09/16/17 23:44 Last Admin: 07/20/17 15:45 Dose: Not Given Miscellaneous (Vancomycin Iv Per Pharmacy) 1 ea MC PRN [facility] Stop: 09/16/17 23:44 Miscellaneous (Clinical Monitoring) 1 ea MC PRN PRN PRN Reason: RENAL DOSE [facility] Stop: 09/17/17 08:23 Miscellaneous (Probiotic Screen) 1 ea MC PRN PRN PRN Reason: PROTOCOL Stop: 09/17/17 10:14 Miscellaneous (Vte Chemical Prophylaxis Screen/ Admission) 1 ea MC PRN PRN PRN Reason: PROTOCOL Stop: 09/17/17 13:47 Morphine Sulfate (Morphine) 2 mg IVP Q4H PRN PRN Reason: Pain (Severe) Stop: 09/16/17 23:53 Ondansetron HCl (Zofran) 4 mg IV Q8H PRN PRN Reason: Nausea / Vomiting Stop: 09/16/17 23:54 Sodium Phosphate (Fleet Enema) 135 ml RC Q48H PRN PRN Reason: Constipation Stop: 09/16/17 23:47 Vancomycin HCl (Vancomycin Oral) 250 mg GT Q6HR [facility] Stop: 09/18/17 17:59 Last Admin: 07/20/17 17:54 Dose: 250 mg Zinc Sulfate (Zinc Sulfate) 220 mg GT DAILY [facility] Stop: 09/17/17 08:59 Last Admin: 07/20/17 09:07 Dose: 22 Lab - Result Diagrams 08/07/17 04:40 08/07/17 04:40 BUN down to 48 UOP still adequate Na down to 134 K elevation iatrogenic no further hematuria CT pelvis revealed right hydronephrosis/ureter Increase IVF 75 ml/hr since now in negative balance w/ clear CXR f/u elelctrolytes, cbc GT feed 70 ml/hr Nutritional Asmnt/Malnutr-PDOC - Dietary Evaluation Malnutrition Findings (Please click <Entered> for more info): Nutritional Asmnt/Malnutrition Start: 07/19/17 17: 24 Text: Status: Complete Freq: Document 07/19/17 17:25 LCJOSE DE JESUSG (Rec: 07/19/17 17:43 LCJOSE DE JESUSG [id number]) Nutritional Asmnt/Malnutrition Patient General Information Nutritional Screening High Risk Consult Diagnosis Sepsis, UTI Pertinent Medical Hx/Surgical Hx HTN, DM, CAD, CHF, chronic resperatory failure, anemia, PEG/Gtube, tracheostomy Subjective Information Consult received for elevated BG. Pt seen lying in bed, on vent, non verbal comminication noted. Not able to obtain nutrition hx. Spoke with RN, no nutrition plan at this time . Current Diet Order/ Nutrition Support NPO Pertinent Medications Vitamin C, novolog, cultrelle, reglan, vancomycin, , piperacillin, Nacl 0.9%, Zinc Pertinent Labs 07/19 Na 132, K 5.3, Cl 97L, BUN 137, Cr 2.7, Glu 353, POC 324-394, A1C 6.2 Nutritional Hx/Data Height 1.57 m Height (Calculated Centimeters) 157.5 Current Weight (lbs) 80.83 kg Weight (Calculated Kilograms) 80.8 Weight (Calculated Grams) 20087.2 [place] Body Weight 110 % [place] Body Weight 162 Body Mass Index (BMI) 32.5 Weight Status Obese GI Symptoms GI Symptoms None Last BM none Usual diet at home Glucerna 1.5 60ml/hr x 20hr daily at [facility] Skin Integrity/Comment: decubitus ulceration to sacrum Estimated Nutritional Goals BEE in Kcals: Adj wt of IBW Calories/Kcals/Kg 30-35 Kcals Calculated Protein: Adj wt of IBW Protein g/k.2-1.5 Protein Calculated 69-87 Fluid: ml Nutritional Problem 2. Problem Problem increased nutrition needs ( calorie and protein) Etiology increased metabolic demand for healing Signs/Symptoms: sepsis 1. Problem Problem altered nutrition related lab values Etiology hx of DM, acute renal insufficiency Signs/Symptoms: BUN 137, Cr 2.7, Glu 353, POC 324-394, A1C 6.2 Malnutrition Alert Protein-Calorie Malnutrition N/A Is there a minimum of two criteria No selected? Query Text:Check all the applicable criteria. A minimum of two criteria are recommended for diagnosis of either severe or non-severe malnutrition. Intervention/Recommendation Comments 1. Monitor NPO status. 2. If enteral feeding needed, recommend to start Diabetisource AC at 30ml/hr continuous. Increased to goal rate of 60ml/hr continuous as tolerated. This will provide 1728kcal, 86g protein and 1179ml water, meeting 100% of nutritional needs. 3. Monitor wt, labs and skin integrity 4. F/U as high risk in 2-3 days, 07/21-07/22 Expected Outcomes/Goals Expected Outcomes/Goals 1. Pt to meet at least 75% of nutritional needs in 2-3 days 2. Wt stability, skin to remain intact, labs to improve .
[2017-08-08] MEDS: INSULIN ASPART, RECOMBINANT 100 UNITS/ML SUBQ SCH ×4 (00:23→17:29)
[2017-08-08] MEDS: Sodium Chloride 0.9% 1,000 ML IV SCH ×2 (05:10→17:30)
[2017-08-08 05:32] LABS: HEMATOCRIT 22.6 % (41.0-60); MEAN CELL VOLUME 85.4 fl (81-100); MEAN CORPUSCULAR HEMOGLOBIN 29.2 pg (27.0-31.0); MEAN CORPUSCULAR HGB CONC 34.2 pg (28.0-36.0); MEAN PLATELET VOLUME 9.7 fl; PLATELET COUNT 308 Th/cmm (150-400); RED BLOOD COUNT 2.64 Mil/cmm (3.80-5.10); RED CELL DISTRIBUTION WIDTH 14.4 % (11.5-20.0)
[2017-08-08 05:37] LABS: HEMOGLOBIN 7.7 gm/dL (12-16); MANUAL DIFF REQUIRED? YES; WHITE BLOOD COUNT 13.2 Th/cmm (4.8-10.8)
[2017-08-08 05:43] LABS: ANION GAP 10.1 (7.0-16.0); BUN - UREA NITROGEN 46 mg/dL (7-25); CALCIUM SERUM 8.1 mg/dL (8.6-10.3); CHLORIDE 105 mEq/L (98-107); CREATININE - SERUM 0.9 mg/dL (0.6-1.2); GFR AFRICAN-AMERICAN > 60.0 ml/min (>90); GFR NON AFRICAN-AMERICAN > 60.0 ml/min; GLUCOSE 106 mg/dL (70-105); POTASSIUM SERUM 4.1 mEq/L (3.5-5.1); SODIUM SERUM 133 mEq/L (136-145)
[2017-08-08 05:54] LABS: BAND NEUTROPHILE 5 % (0-10); EOSINOPHIL 6 % (0-5); LYMPHOCYTE 13 % (20-50); MONOCYTE 5 % (2-10); NEUTROPHILS 71 % (40-80); TOTAL CELLS COUNTED 100
[2017-08-08] MEDS: Albuterol/Ipratropium Neb 3 ML AERS HHN SCH ×3 (07:58→19:23)
[2017-08-08] MEDS: Chlorhexidine Gluconate 0.12% 15mL Mouthwash MM SCH ×2 (08:45→20:05)
[2017-08-08] MEDS: Multivitamin w/ Minerals Tab GT SCH (09:46)
[2017-08-08] MEDS: Venelex 60gm Tube TP SCH (09:46)
[2017-08-08] MEDS: Menthol/Zinc Oxide Oint 113gm Tube TP SCH ×4 (09:46→21:06)
[2017-08-08] MEDS: Lactobacillus Rhamnosus GG 15 Billion CFU CAP.SPRINK PO SCH (09:46)
[2017-08-08] MEDS: Insulin Detemir 100 units/mL 10mL Vial SUBQ SCH ×2 (09:54→17:31)
--- NOTE | 2017-08-08 11:03 | Internal Medicine Prog Note ---
Internal Medicine Subjective - Subjective Service Date: 08/08/17 Patient seen and examined:: with staff Patient is:: awake, non-verbal, non-interactive, in bed, stares blankly Patient Complaints of:: congestion, bloated Per staff patient has:: tolerating meds Internal Medicine Objective - Results Result Diagrams: 08/08/17 05:10 08/08/17 05:10 Recent Labs: Laboratory Last Values WBC 13.2 Th/cmm (4.8-10.8) H 08/08/17 05:10 RBC 2.64 Mil/cmm (3.80-5.10) L 08/08/17 05:10 Hgb 7.7 gm/dL (12-16) L* 08/08/17 05:10 Hct 22.6 % (41.0-60) L 08/08/17 05:10 MCV 85.4 fl (81-100) 08/08/17 05:10 MCH 29.2 pg (27.0-31.0) 08/08/17 05:10 MCHC Differential 34.2 pg (28.0-36.0) 08/08/17 05:10 RDW 14.4 % (11.5-20.0) 08/08/17 05:10 Plt Count 308 Th/cmm (150-400) 08/08/17 05:10 MPV 9.7 fl 08/08/17 05:10 Neutrophils % 72.0 % (40.0-80.0) 08/07/17 04:40 Band Neutrophils % 5 % (0-10) 08/08/17 05:10 Lymphocytes % 18.2 % (20.0-50.0) L 08/07/17 04:40 Monocytes % 5.6 % (2.0-10.0) 08/07/17 04:40 Eosinophils % 3.8 % (0.0-5.0) 08/07/17 04:40 Basophils % 0.4 % (0.0-2.0) 08/07/17 04:40 Neutrophils (Manual) 71 % (40-80) 08/08/17 05:10 Lymphocytes 13 % (20-50) L 08/08/17 05:10 Monocytes 5 % (2-10) 08/08/17 05:10 Eosinophils 6 % (0-5) H 08/08/17 05:10 Hypochromia 1+ 07/30/17 04:30 Platelet Estimate ADEQUATE (NORMAL) 08/04/17 04:45 Polychromasia 1+ 07/30/17 04:30 Smear Path Review YES 07/18/17 22:15 Eos Smear Source URINE 07/19/17 22:30 Eos Smear Total Cells NONE SEEN (NONE SEEN) 07/19/17 22:30 PT 9.8 SECONDS (9.5-11.5) 08/07/17 04:40 INR 0.94 (0.5-1.4) 08/07/17 04:40 PTT (Actin FS) 25.6 SECONDS (26.0-38.0) L 08/07/17 04:40 Specimen Source Arterial 07/25/17 14:15 Sample Site RIGHT BRACHIAL 07/25/17 14:15 pH 7.48 (7.35-7.45) H 07/25/17 14:15 pCO2 33.0 mmHg (35.0-45.0) L 07/25/17 14:15 pO2 144.0 mmHg (80.0-100.0) H 07/25/17 14:15 HCO3 26.1 mEq/L (20.0-26.0) H 07/25/17 14:15 Base Excess 1.5 mEq/L (-3.0-3.0) 07/25/17 14:15 O2 Saturation 99.0 % (92.0-100.0) 07/25/17 14:15 Cricket Test Positive 07/25/17 14:15 Vent Rate 12 07/25/17 14:15 Inspired O2 35 07/25/17 14:15 Tidal Volume 500 07/25/17 14:15 PEEP 5 07/25/17 14:15 Pressure (ins/psv/peep) N/A 07/25/17 14:15 Critical Value HSTEHNO 07/25/17 14:15 Sodium 133 mEq/L (136-145) L 08/08/17 05:10 Potassium 4.1 mEq/L (3.5-5.1) 08/08/17 05:10 Chloride 105 mEq/L (98-107) 08/08/17 05:10 Carbon Dioxide 22.0 mEq/L (21.0-31.0) 08/08/17 05:10 Anion Gap 10.1 (7.0-16.0) 08/08/17 05:10 BUN 46 mg/dL (7-25) H 08/08/17 05:10 Creatinine 0.9 mg/dL (0.6-1.2) 08/08/17 05:10 Est GFR ( Amer) > 60.0 ml/min (>90) 08/08/17 05:10 Est GFR (Non-Af Amer) > 60.0 ml/min 08/08/17 05:10 BUN/Creatinine Ratio 51.1 08/08/17 05:10 Glucose 106 mg/dL (70-105) H 08/08/17 05:10 POC Glucose 92 MG/DL (70 - 105) 08/08/17 09:54 Hemoglobin A1c % 6.2 % (4.0-6.0) H 07/18/17 23:30 Plasma/Ser Osmolality 344 mOsmol/kg (280-301) H 07/19/17 23:30 Whole Bld Lactic Acid 0.61 mmol/L (0.60-1.99) 07/20/17 04:10 Uric Acid 9.5 mg/dL (2.3-6.6) H 07/20/17 04:10 Calcium 8.1 mg/dL (8.6-10.3) L 08/08/17 05:10 Phosphorus 4.5 mg/dL (2.5-5.0) 07/20/17 04:10 Magnesium 1.8 mg/dL (1.9-2.7) L 07/28/17 05:00 Iron 36 ug/dL (27-139) 07/30/17 04:30 TIBC 160 ug/dL (250-450) L 07/30/17 04:30 Iron Saturation 23 % (15-55) 07/30/17 04:30 Unsaturated IBC 124 ug/dL (118-369) 07/30/17 04:30 Total Bilirubin 0.3 mg/dL (0.3-1.0) 08/01/17 05:55 AST 9 U/L (13-39) L 08/01/17 05:55 ALT 11 U/L (7-52) 08/01/17 05:55 Alkaline Phosphatase 111 U/L (34-104) H 08/01/17 05:55 Ammonia 34 umol/L (16-53) 08/08/17 05:10 Creatine Kinase 26 U/L (30-223) L 07/18/17 22:15 Troponin I 0.27 ng/mL (0.01-0.05) H* 07/18/17 22:15 B-Natriuretic Peptide 341.0 pg/mL (5.0-100.0) H 08/07/17 04:40 Total Protein 6.4 gm/dL (6.0-8.3) 08/01/17 05:55 Albumin 2.9 gm/dL (3.7-5.3) L 08/01/17 05:55 Globulin 3.5 gm/dL 08/01/17 05:55 Albumin/Globulin Ratio 0.8 (1.0-1.8) L 08/01/17 05:55 Vitamin B12 >1999 pg/mL (232-1245) H 07/30/17 04:30 Folic Acid >20.0 ng/mL (>3.0) 07/30/17 04:30 TSH 2.30 uIU/ml (0.34-5.60) 07/19/17 04:15 Urine Source [place] 07/18/17 21:30 Urine Color RED 07/18/17 21:30 Urine Clarity CLOUDY (CLEAR) H 07/18/17 21:30 Urine pH 7.5 (4.6 - 8.0) 07/18/17 21:30 Ur Specific [place] 1.025 (1.005-1.030) 07/18/17 21:30 Urine Protein >=300 mg/dL (NEGATIVE) 07/18/17 21:30 Urine Glucose (UA) NEGATIVE mg/dL (NEGATIVE) 07/18/17 21:30 Urine Ketones NEGATIVE mg/dL (NEGATIVE) 07/18/17 21:30 Urine Blood LARGE (NEGATIVE) H 07/18/17 21:30 Urine Nitrate NEGATIVE (NEGATIVE) 07/18/17 21:30 Urine Bilirubin NEGATIVE (NEGATIVE) 07/18/17 21:30 Urine Urobilinogen 0.2 E.U./dL (0.2 - 1.0) 07/18/17 21:30 Ur Leukocyte Esterase SMALL (NEGATIVE) H 07/18/17 21:30 Urine RBC 50-100 /hpf (0-5) H 07/18/17 21:30 Urine WBC 6-10 /hpf (0-5) H 07/18/17 21:30 Ur Epithelial Cells FEW /lpf (FEW) 07/18/17 21:30 Urine Bacteria MANY /hpf (NONE SEEN) 07/18/17 21:30 Ur Random Sodium 28 mmol/L 07/19/17 22:30 Urine Creatinine 26.3 mg/dl (Not Estab.) 07/19/17 22:30 Urine Microalbumin 2398.5 ug/mL (Not Estab.) 07/19/17 22:30 Microalb/Creat Ratio 9119.8 07/19/17 22:30 Stool Occult Blood NEGATIVE (NEGATIVE) 07/24/17 03:37 Vancomycin Trough 30.5 ug/mL (10-20) H 08/03/17 08:08 Random Vancomycin 17.6 ug/mL (5.0-40.0) 08/07/17 04:40 Blood Type O NEGATIVE 07/20/17 08:15 Antibody Screen NEGATIVE 07/20/17 08:15 - Physical Exam Vitals and I&O: Vital Signs Temp 98.3 F 08/08/17 04:00 Pulse 61 08/08/17 09:46 Resp 16 08/08/17 07:00 BP 122/42 08/08/17 09:46 Pulse Ox 100 08/08/17 08:00 Intake & Output 08/07/17 08/08/17 08/08/17 18:59 06:59 18:59 Intake Total 1708.75 1151.25 Output Total 1610 810 Balance 98.75 341.25 Weight (lbs) 196 lb 196 lb Intake: Intake, IV Amount 868.75 1151.25 Meropenem 1 gm In 100 100 Dextrose 5% 100 ml @ 100 mls/hr IV Q12H [facility] Rx#: [id number] Sodium Chloride 0.9% 1, 768.75 801.25 000 ml @ 75 mls/hr IV . [id number] [facility] Rx#:[id number] Vancomycin HCl 750 mg In 250 Sodium Chloride 0.9% 250 ml @ 250 mls/hr IV Q48H [facility] Rx#:[id number] Tube Feeding 840 Output: Urine 1550 750 Stool 60 60 Other: Stool Characteristics Liquid Liquid Liquid Brown Brown Active Medications: Current Medications Acetaminophen (Tylenol 650mg/20.3ml Suspension) 650 mg GT Q4H PRN PRN Reason: Pain or Fever >101 Stop: 09/16/17 23:47 Last Admin: 07/22/17 00:35 Dose: 650 mg Albuterol/Ipratropium (Duoneb Neb) 3 ml HHN Q6HRT [facility] Stop: 09/17/17 12:59 Last Admin: 08/08/17 07:58 Dose: 3 ml Albuterol/Ipratropium (Duoneb Neb) 3 ml HHN Q2HR PRN PRN Reason: Shortness of Breath Stop: 09/16/17 23:47 Ascorbic Acid (Vitamin C) 500 mg GT DAILY [facility] Stop: 09/17/17 08:59 Last Admin: 08/08/17 09:46 Dose: 500 mg Bisacodyl (Dulcolax 10 Mg Supp) 10 mg RC DAILY PRN PRN Reason: constip Stop: 09/16/17 23:47 Calamine/Phenol (Calmoseptine) 1 appl TP QID PRN PRN Reason: Skin Irritation Stop: 09/24/17 09:35 Calamine/Phenol (Calmoseptine) 1 appl TP QID [facility] Stop: 09/24/17 12:59 Last Admin: 08/08/17 09:46 Dose: 1 appl Carvedilol (Coreg) 6.25 mg GT BID [facility] Stop: 09/17/17 08:59 Last Admin: 08/08/17 09:46 Dose: Not Given Loris Oil/Tristanian Balsam/Trypsin (Venelex) 1 appl TP DAILY [facility] Stop: 09/25/17 08:59 Last Admin: 08/08/17 09:46 Dose: 1 appl Chlorhexidine Gluconate (Peridex) 15 ml MM 08,1999 [facility] Stop: 09/17/17 07:59 Last Admin: 08/08/17 08:45 Dose: 15 ml Docusate Sodium (Colace) 100 mg GT BID PRN PRN Reason: Constipation Famotidine (Pepcid) 20 mg GT Q12H [facility] Stop: 09/16/17 23:44 Last Admin: 08/08/17 00:11 Dose: 20 mg Guaifenesin (Robitussin) 200 mg PO Q4HR PRN PRN Reason: Cough or Congestion Stop: 09/16/17 23:54 Meropenem 1 gm/ Dextrose 100 mls @ 100 mls/hr IV Q12H [facility] Stop: 09/30/17 14:59 Last Infusion: 08/08/17 03:30 Dose: Infused Sodium Chloride (Nacl 0.9%) 1,000 mls @ 75 mls/hr IV .[id number] [facility] Stop: 10/01/17 15:29 Last Admin: 08/08/17 05:10 Dose: 75 mls/hr Vancomycin HCl 750 mg/ Sodium (Chloride) 250 mls @ 250 mls/hr IV Q48H [facility] Stop: 10/04/17 20:59 Last Infusion: 08/07/17 22:00 Dose: Infused Insulin Aspart (Novolog) 0 units SUBQ Q6HR [facility] PRN Reason: Protocol Stop: 09/18/17 17:59 Last Admin: 08/08/17 05:22 Dose: Not Given Insulin Detemir (Levemir Insulin) 24 units SUBQ BID [facility]LE PRN Reason: Protocol Stop: 09/20/17 08:59 Last Admin: 08/08/17 09:54 Dose: Not Given Lactobacillus Rhamnosus (Culturelle 15b) 1 each PO DAILY [facility] Stop: 09/30/17 10:59 Last Admin: 08/08/17 09:46 Dose: 1 each Magnesium Hydroxide (Milk Of Magnesia) 30 ml GT HS PRN PRN Reason: Constipation Stop: 09/16/17 23:47 Metoclopramide HCl (Reglan) 10 mg GT Q8H [facility] Stop: 09/20/17 13:01 Last Admin: 08/08/17 05:20 Dose: 10 mg Miscellaneous (Vancomycin Iv Per Pharmacy) 1 ea MC PRN [facility] Stop: 09/16/17 23:44 Miscellaneous (Clinical Monitoring) 1 ea MC PRN PRN PRN Reason: RENAL DOSE MERREM Stop: 09/17/17 08:23 Miscellaneous (Probiotic Screen) 1 ea MC PRN PRN PRN Reason: PROTOCOL Stop: 09/17/17 10:14 Miscellaneous (Vte Chemical Prophylaxis Screen/ Admission) 1 ea MC PRN PRN PRN Reason: PROTOCOL Stop: 09/17/17 13:47 Morphine Sulfate (Morphine) 2 mg IVP Q4H PRN PRN Reason: Pain (Severe) Stop: 09/16/17 23:53 Last Admin: 08/06/17 21:13 Dose: 2 mg Ondansetron HCl (Zofran) 4 mg IV Q8H PRN PRN Reason: Nausea / Vomiting Stop: 09/16/17 23:54 Last Admin: 07/21/17 18:48 Dose: 4 mg Sodium Phosphate (Fleet Enema) 135 ml RC Q48H PRN PRN Reason: Constipation Stop: 09/16/17 23:47 Zinc Sulfate (Zinc Sulfate) 220 mg GT DAILY [facility] Stop: 09/17/17 08:59 Last Admin: 08/08/17 09:46 Dose: 220 mg General: weak, congested, demented, obtunded HEENT: NC/AT, PERRLA Neck: Supple, + trach Lungs: congested, rales, ronchi Cardiovascular: RRR, without murmur Abdomen: soft, non-tender, non-distended, +GT, positive bowel sound Extremities: excoriation, ulcers stage 3 Neurological: bedbound, spastic - Procedures Procedures: Procedures Procedure Code Date RESPIRATORY VENTILATION, GREATER THAN 96 CONSECUTIVE HOURS [id number] 07/18/17 Internal Medicine Assmt/Plan - Assessment Assessment: sepsis cdiff chronic respiratory failure VDRF leukocytosis hematuria-improved htn dm2 cad chf anemia tracheostomy status hypokalemia acute renal insufficiency elevated troponin mild protein calorie malnutrition acute uti - Plan Plan: contact isolation continue with ivabx renal follow up monitor h/h follow up labs in am vent support continue current plan of care Nutritional Asmnt/Malnutr-PDOC - Dietary Evaluation Malnutrition Findings (Please click <Entered> for more info): Nutritional Asmnt/Malnutrition Start: 07/19/17 17: 24 Text: Status: Complete Freq: Document 07/19/17 17:25 LCHENG (Rec: 07/19/17 17:43 LCHENG [email or web address]) Nutritional Asmnt/Malnutrition Patient General Information Nutritional Screening High Risk Consult Diagnosis Sepsis, UTI Pertinent Medical Hx/Surgical Hx HTN, DM, CAD, CHF, chronic resperatory failure, anemia, PEG/Gtube, tracheostomy Subjective Information Consult received for elevated BG. Pt seen lying in bed, on vent, non verbal comminication noted. Not able to obtain nutrition hx. Spoke with RN, no nutrition plan at this time . Current Diet Order/ Nutrition Support NPO Pertinent Medications Vitamin C, novolog, cultrelle, reglan, vancomycin, , piperacillin, Nacl 0.9%, Zinc Pertinent Labs 07/19 Na 132, K 5.3, Cl 97L, BUN 137, Cr 2.7, Glu 353, POC 324-394, A1C 6.2 Nutritional Hx/Data Height 5 ft 2 in Height (Calculated Centimeters) 157.5 Current Weight (lbs) 178 lb 3.2 oz Weight (Calculated Kilograms) 80.8 Weight (Calculated Grams) 72443.2 [place] Body Weight 110 % [place] Body Weight 162 Body Mass Index (BMI) 32.5 Weight Status Obese GI Symptoms GI Symptoms None Last BM none Usual diet at home Glucerna 1.5 60ml/hr x 20hr daily at [facility] Skin Integrity/Comment: decubitus ulceration to sacrum Estimated Nutritional Goals BEE in Kcals: Adj wt of IBW Calories/Kcals/Kg 30-35 Kcals Calculated Protein: Adj wt of IBW Protein g/k.2-1.5 Protein Calculated 69-87 Fluid: ml Nutritional Problem 2. Problem Problem increased nutrition needs ( calorie and protein) Etiology increased metabolic demand for healing Signs/Symptoms: sepsis 1. Problem Problem altered nutrition related lab values Etiology hx of DM, acute renal insufficiency Signs/Symptoms: BUN 137, Cr 2.7, Glu 353, POC 324-394, A1C 6.2 Malnutrition Alert Protein-Calorie Malnutrition N/A Is there a minimum of two criteria No selected? Query Text:Check all the applicable criteria. A minimum of two criteria are recommended for diagnosis of either severe or non-severe malnutrition. Intervention/Recommendation Comments 1. Monitor NPO status. 2. If enteral feeding needed, recommend to start Diabetisource AC at 30ml/hr continuous. Increased to goal rate of 60ml/hr continuous as tolerated. This will provide 1728kcal, 86g protein and 1179ml water, meeting 100% of nutritional needs. 3. Monitor wt, labs and skin integrity 4. F/U as high risk in 2-3 days, 07/21-07/22 Expected Outcomes/Goals Expected Outcomes/Goals 1. Pt to meet at least 75% of nutritional needs in 2-3 days 2. Wt stability, skin to remain intact, labs to improve .
--- NOTE | 2017-08-08 13:55 | Diagnostic Imaging Report ---
CT scan of the brain without intravenous contrast HISTORY: Stroke, CVA Total DLP equals 826 CTDI equals 46.0 Axial sections were obtained from the base of the skull to the vertex. There are changes of severe generalized cerebral atrophy with enlargement of the ventricular system and enlargement of cerebral sulci and subarachnoid cisterns. Extensive hypodensity noted throughout the richard and white matter regions. No mass effect. The overall appearance suggests chronic change. Findings associated with old infarcts may be contributing. No acute intracerebral hemorrhage. Again, no mass effect or shift of midline structures. Sclerotic change involves the mastoid air cell regions bilaterally consistent with inflammatory sequelae. Mucosal thickening noted within the right sphenoid sinus region. IMPRESSION: 1. Severe generalized cerebral atrophy along with findings probably chronic and related to encephalomalacia and old infarcts. No definite acute abnormalities. In view of the patient's age, correlation with history needed. If indicated, an MRI exam may provide additional assessment. 2. No definite acute focal abnormalities 3. Mucosal thickening within the right sphenoid sinus region
[2017-08-09] MEDS: INSULIN ASPART, RECOMBINANT 100 UNITS/ML SUBQ SCH ×4 (00:15→18:23)
[2017-08-09] MEDS: Albuterol/Ipratropium Neb 3 ML AERS HHN SCH ×4 (00:41→20:12)
[2017-08-09 05:27] LABS: HEMATOCRIT 21.1 % (41.0-60); MEAN CELL VOLUME 85.9 fl (81-100); MEAN CORPUSCULAR HEMOGLOBIN 28.7 pg (27.0-31.0); MEAN CORPUSCULAR HGB CONC 33.4 pg (28.0-36.0); MEAN PLATELET VOLUME 10.6 fl; PLATELET COUNT 290 Th/cmm (150-400); RED BLOOD COUNT 2.46 Mil/cmm (3.80-5.10); RED CELL DISTRIBUTION WIDTH 14.2 % (11.5-20.0); WHITE BLOOD COUNT 10.9 Th/cmm (4.8-10.8)
[2017-08-09 05:33] LABS: HEMOGLOBIN 7.1 gm/dL (12-16); MANUAL DIFF REQUIRED? YES
[2017-08-09 05:50] LABS: ANION GAP 8.6 (7.0-16.0); BUN - UREA NITROGEN 45 mg/dL (7-25); CALCIUM SERUM 8.4 mg/dL (8.6-10.3); CARBON DIOXIDE 24.5 mEq/L (21.0-31.0); CHLORIDE 106 mEq/L (98-107); CREATININE - SERUM 0.9 mg/dL (0.6-1.2); GFR AFRICAN-AMERICAN > 60.0 ml/min (>90); GFR NON AFRICAN-AMERICAN > 60.0 ml/min; GLUCOSE 148 mg/dL (70-105); POTASSIUM SERUM 4.1 mEq/L (3.5-5.1); SODIUM SERUM 135 mEq/L (136-145)
[2017-08-09 06:16] LABS: TOTAL CELLS COUNTED 100
[2017-08-09 06:17] LABS: BAND NEUTROPHILE 4 % (0-10); EOSINOPHIL 4 % (0-5); LYMPHOCYTE 28 % (20-50); MONOCYTE 3 % (2-10); NEUTROPHILS 59 % (40-80)
[2017-08-09 06:18] LABS: BASOPHIL 2 % (0-3)
--- NOTE | 2017-08-09 07:49 | Progress Notes ---
DATE: 08/08/2017 RENAL PROGRESS NOTE LOCATION: [facility], ICU bed #8. The patient is conscious, alert on trach. Good urine output. PHYSICAL EXAMINATION: VITAL SIGNS: Temperature 97.2, blood pressure 144/50, respirations 17. Yesterday's intake 3740, output 1200. Today, Ocampo catheter has more than 2000 mL of urine. HEART: Regular. LUNGS: Good air entry. ABDOMEN: Soft. EXTREMITIES: No edema. SIGNIFICANT LABORATORY DATA: Hemoglobin 7.7, sodium 133, potassium 4.1, chloride 105, CO2 of 22, BUN 46, creatinine 0.9, calcium 8.1. ASSESSMENT: 1. Acute kidney injury, improving and stable. 2. Respiratory failure. 3. Hyponatremia, improving. PLAN: Continue current treatment. Consider urology consultation since patient has hydronephrosis by ultrasound. BMP in the morning. JOB# [id number]
[2017-08-09 08:11] LABS: % BASOPHILS 0.1 % (0.0-2.0); % EOSINOPHILS 3.5 % (0.0-5.0); % LYMPHOCYTES 16.9 % (20.0-50.0); % MONOCYTES 5.9 % (2.0-10.0); % NEUTROPHILS 73.6 % (40.0-80.0); EOSINOPHILE ABSOLUTE 0.5 Th/cmm (0.1-0.4); HEMATOCRIT 22.8 % (41.0-60); LYMPHOCYTE ABSOLUTE 2.2 Th/cmm (1.5-3.0); MEAN CELL VOLUME 86.7 fl (81-100); MEAN CORPUSCULAR HGB CONC 33.4 pg (28.0-36.0); MEAN PLATELET VOLUME 9.7 fl; MONOCYTE ABSOLUTE 0.8 Th/cmm (0.3-1.0); NEUTROPHILE ABSOLUTE 9.8 Th/cmm (1.8-8.0); PLATELET COUNT 309 Th/cmm (150-400); RED BLOOD COUNT 2.63 Mil/cmm (3.80-5.10); RED CELL DISTRIBUTION WIDTH 14.4 % (11.5-20.0)
[2017-08-09 08:17] LABS: HEMOGLOBIN 7.6 gm/dL (12-16); WHITE BLOOD COUNT 13.3 Th/cmm (4.8-10.8)
[2017-08-09] MEDS: Chlorhexidine Gluconate 0.12% 15mL Mouthwash MM SCH ×2 (08:20→20:21)
[2017-08-09] MEDS: Multivitamin w/ Minerals Tab GT SCH (09:11)
[2017-08-09] MEDS: Lactobacillus Rhamnosus GG 15 Billion CFU CAP.SPRINK PO SCH (09:11)
[2017-08-09] MEDS: Menthol/Zinc Oxide Oint 113gm Tube TP SCH ×4 (09:12→20:21)
[2017-08-09] MEDS: Venelex 60gm Tube TP SCH (09:12)
[2017-08-09] MEDS: Insulin Detemir 100 units/mL 10mL Vial SUBQ SCH ×2 (09:12→17:40)
[2017-08-09] MEDS: Sodium Chloride 0.9% 1,000 ML IV SCH (11:49)
--- NOTE | 2017-08-09 16:05 | Internal Medicine Prog Note ---
Internal Medicine Subjective - Subjective Service Date: 08/09/17 Patient is:: awake, non-verbal, non-interactive, in bed, stares blankly Patient Complaints of:: congestion, bloated Per staff patient has:: tolerating meds Internal Medicine Objective - Results Result Diagrams: 08/09/17 07:55 08/09/17 04:20 Recent Labs: Laboratory Last Values WBC 13.3 Th/cmm (4.8-10.8) H D 08/09/17 07:55 RBC 2.63 Mil/cmm (3.80-5.10) L 08/09/17 07:55 Hgb 7.6 gm/dL (12-16) L* 08/09/17 07:55 Hct 22.8 % (41.0-60) L 08/09/17 07:55 MCV 86.7 fl (81-100) 08/09/17 07:55 MCH 29.0 pg (27.0-31.0) 08/09/17 07:55 MCHC Differential 33.4 pg (28.0-36.0) 08/09/17 07:55 RDW 14.4 % (11.5-20.0) 08/09/17 07:55 Plt Count 309 Th/cmm (150-400) 08/09/17 07:55 MPV 9.7 fl 08/09/17 07:55 Neutrophils % 73.6 % (40.0-80.0) 08/09/17 07:55 Band Neutrophils % 4 % (0-10) 08/09/17 04:20 Lymphocytes % 16.9 % (20.0-50.0) L 08/09/17 07:55 Monocytes % 5.9 % (2.0-10.0) 08/09/17 07:55 Eosinophils % 3.5 % (0.0-5.0) 08/09/17 07:55 Basophils % 0.1 % (0.0-2.0) 08/09/17 07:55 Neutrophils (Manual) 59 % (40-80) 08/09/17 04:20 Lymphocytes 28 % (20-50) 08/09/17 04:20 Monocytes 3 % (2-10) 08/09/17 04:20 Eosinophils 4 % (0-5) 08/09/17 04:20 Basophils 2 % (0-3) 08/09/17 04:20 Hypochromia 1+ 07/30/17 04:30 Platelet Estimate ADEQUATE (NORMAL) 08/04/17 04:45 Polychromasia 1+ 07/30/17 04:30 Smear Path Review YES 07/18/17 22:15 Eos Smear Source URINE 07/19/17 22:30 Eos Smear Total Cells NONE SEEN (NONE SEEN) 07/19/17 22:30 PT 9.8 SECONDS (9.5-11.5) 08/07/17 04:40 INR 0.94 (0.5-1.4) 08/07/17 04:40 PTT (Actin FS) 25.6 SECONDS (26.0-38.0) L 08/07/17 04:40 Specimen Source Arterial 07/25/17 14:15 Sample Site RIGHT BRACHIAL 07/25/17 14:15 pH 7.48 (7.35-7.45) H 07/25/17 14:15 pCO2 33.0 mmHg (35.0-45.0) L 07/25/17 14:15 pO2 144.0 mmHg (80.0-100.0) H 07/25/17 14:15 HCO3 26.1 mEq/L (20.0-26.0) H 07/25/17 14:15 Base Excess 1.5 mEq/L (-3.0-3.0) 07/25/17 14:15 O2 Saturation 99.0 % (92.0-100.0) 07/25/17 14:15 Cricket Test Positive 07/25/17 14:15 Vent Rate 12 07/25/17 14:15 Inspired O2 35 07/25/17 14:15 Tidal Volume 500 07/25/17 14:15 PEEP 5 07/25/17 14:15 Pressure (ins/psv/peep) N/A 07/25/17 14:15 Critical Value HSTEHNO 07/25/17 14:15 Sodium 135 mEq/L (136-145) L 08/09/17 04:20 Potassium 4.1 mEq/L (3.5-5.1) 08/09/17 04:20 Chloride 106 mEq/L (98-107) 08/09/17 04:20 Carbon Dioxide 24.5 mEq/L (21.0-31.0) 08/09/17 04:20 Anion Gap 8.6 (7.0-16.0) 08/09/17 04:20 BUN 45 mg/dL (7-25) H 08/09/17 04:20 Creatinine 0.9 mg/dL (0.6-1.2) 08/09/17 04:20 Est GFR ( Amer) > 60.0 ml/min (>90) 08/09/17 04:20 Est GFR (Non-Af Amer) > 60.0 ml/min 08/09/17 04:20 BUN/Creatinine Ratio 50.0 08/09/17 04:20 Glucose 148 mg/dL (70-105) H 08/09/17 04:20 POC Glucose 141 MG/DL (70 - 105) H 08/09/17 11:48 Hemoglobin A1c % 6.2 % (4.0-6.0) H 07/18/17 23:30 Plasma/Ser Osmolality 344 mOsmol/kg (280-301) H 07/19/17 23:30 Whole Bld Lactic Acid 0.61 mmol/L (0.60-1.99) 07/20/17 04:10 Uric Acid 9.5 mg/dL (2.3-6.6) H 07/20/17 04:10 Calcium 8.4 mg/dL (8.6-10.3) L 08/09/17 04:20 Phosphorus 4.5 mg/dL (2.5-5.0) 07/20/17 04:10 Magnesium 1.8 mg/dL (1.9-2.7) L 07/28/17 05:00 Iron 36 ug/dL (27-139) 07/30/17 04:30 TIBC 160 ug/dL (250-450) L 07/30/17 04:30 Iron Saturation 23 % (15-55) 07/30/17 04:30 Unsaturated IBC 124 ug/dL (118-369) 07/30/17 04:30 Total Bilirubin 0.3 mg/dL (0.3-1.0) 08/01/17 05:55 AST 9 U/L (13-39) L 08/01/17 05:55 ALT 11 U/L (7-52) 08/01/17 05:55 Alkaline Phosphatase 111 U/L (34-104) H 08/01/17 05:55 Ammonia 34 umol/L (16-53) 08/08/17 05:10 Creatine Kinase 26 U/L (30-223) L 07/18/17 22:15 Troponin I 0.27 ng/mL (0.01-0.05) H* 07/18/17 22:15 B-Natriuretic Peptide 341.0 pg/mL (5.0-100.0) H 08/07/17 04:40 Total Protein 6.4 gm/dL (6.0-8.3) 08/01/17 05:55 Albumin 2.9 gm/dL (3.7-5.3) L 08/01/17 05:55 Globulin 3.5 gm/dL 08/01/17 05:55 Albumin/Globulin Ratio 0.8 (1.0-1.8) L 08/01/17 05:55 Vitamin B12 >1999 pg/mL (232-1245) H 07/30/17 04:30 Folic Acid >20.0 ng/mL (>3.0) 07/30/17 04:30 TSH 2.30 uIU/ml (0.34-5.60) 07/19/17 04:15 Urine Source [place] 07/18/17 21:30 Urine Color RED 07/18/17 21:30 Urine Clarity CLOUDY (CLEAR) H 07/18/17 21:30 Urine pH 7.5 (4.6 - 8.0) 07/18/17 21:30 Ur Specific [place] 1.025 (1.005-1.030) 07/18/17 21:30 Urine Protein >=300 mg/dL (NEGATIVE) 07/18/17 21:30 Urine Glucose (UA) NEGATIVE mg/dL (NEGATIVE) 07/18/17 21:30 Urine Ketones NEGATIVE mg/dL (NEGATIVE) 07/18/17 21:30 Urine Blood LARGE (NEGATIVE) H 07/18/17 21:30 Urine Nitrate NEGATIVE (NEGATIVE) 07/18/17 21:30 Urine Bilirubin NEGATIVE (NEGATIVE) 07/18/17 21:30 Urine Urobilinogen 0.2 E.U./dL (0.2 - 1.0) 07/18/17 21:30 Ur Leukocyte Esterase SMALL (NEGATIVE) H 07/18/17 21:30 Urine RBC 50-100 /hpf (0-5) H 07/18/17 21:30 Urine WBC 6-10 /hpf (0-5) H 07/18/17 21:30 Ur Epithelial Cells FEW /lpf (FEW) 07/18/17 21:30 Urine Bacteria MANY /hpf (NONE SEEN) 07/18/17 21:30 Ur Random Sodium 28 mmol/L 07/19/17 22:30 Urine Creatinine 26.3 mg/dl (Not Estab.) 07/19/17 22:30 Urine Microalbumin 2398.5 ug/mL (Not Estab.) 07/19/17 22:30 Microalb/Creat Ratio 9119.8 07/19/17 22:30 Stool Occult Blood NEGATIVE (NEGATIVE) 07/24/17 03:37 Vancomycin Trough 30.5 ug/mL (10-20) H 08/03/17 08:08 Random Vancomycin 17.6 ug/mL (5.0-40.0) 08/07/17 04:40 Blood Type O NEGATIVE 08/09/17 07:55 Antibody Screen NEGATIVE 08/09/17 07:55 Crossmatch See Detail 08/09/17 07:55 - Physical Exam Vitals and I&O: Vital Signs Temp 98 F 08/09/17 15:00 Pulse 75 08/09/17 15:40 Resp 15 08/09/17 15:00 BP 144/50 08/09/17 15:00 Pulse Ox 100 08/09/17 15:40 Intake & Output 08/08/17 08/09/17 08/09/17 18:59 06:59 18:59 Intake Total 2225 1843.75 56.25 Output Total 1400 1750 Balance 825 93.75 56.25 Weight (lbs) 195 lb 3 oz 195 lb Intake: Intake, IV Amount 1025 1043.75 56.25 Meropenem 1 gm In 100 100 Dextrose 5% 100 ml @ 100 mls/hr IV Q12H [facility] Rx#: [id number] Sodium Chloride 0.9% 1, 925 943.75 56.25 000 ml @ 75 mls/hr IV . [id number] [facility]LE Rx#:[id number] Tube Feeding 800 800 Other 400 Output: Urine 1300 1650 Stool 100 100 Other: Stool Characteristics Liquid Liquid Liquid Brown Brown Brown Active Medications: Current Medications Acetaminophen (Tylenol 650mg/20.3ml Suspension) 650 mg GT Q4H PRN PRN Reason: Pain or Fever >101 Stop: 09/16/17 23:47 Last Admin: 07/22/17 00:35 Dose: 650 mg Albuterol/Ipratropium (Duoneb Neb) 3 ml HHN Q6HRT [facility] Stop: 09/17/17 12:59 Last Admin: 08/09/17 13:29 Dose: 3 ml Albuterol/Ipratropium (Duoneb Neb) 3 ml HHN Q2HR PRN PRN Reason: Shortness of Breath Stop: 09/16/17 23:47 Ascorbic Acid (Vitamin C) 500 mg GT DAILY [facility] Stop: 09/17/17 08:59 Last Admin: 08/09/17 09:11 Dose: 500 mg Bisacodyl (Dulcolax 10 Mg Supp) 10 mg RC DAILY PRN PRN Reason: constip Stop: 09/16/17 23:47 Calamine/Phenol (Calmoseptine) 1 appl TP QID PRN PRN Reason: Skin Irritation Stop: 09/24/17 09:35 Calamine/Phenol (Calmoseptine) 1 appl TP QID [facility] Stop: 09/24/17 12:59 Last Admin: 08/09/17 12:36 Dose: 1 appl Carvedilol (Coreg) 6.25 mg GT BID [facility] Stop: 09/17/17 08:59 Last Admin: 08/09/17 09:11 Dose: 6.25 mg [place] Oil/Swedish Balsam/Trypsin (Venelex) 1 appl TP DAILY [facility] Stop: 09/25/17 08:59 Last Admin: 08/09/17 09:12 Dose: 1 appl Chlorhexidine Gluconate (Peridex) 15 ml MM 0800,1999 [facility] Stop: 09/17/17 07:59 Last Admin: 08/09/17 08:20 Dose: 15 ml Docusate Sodium (Colace) 100 mg GT BID PRN PRN Reason: Constipation Famotidine (Pepcid) 20 mg GT Q12H [facility] Stop: 09/16/17 23:44 Last Admin: 08/09/17 11:45 Dose: 20 mg Guaifenesin (Robitussin) 200 mg PO Q4HR PRN PRN Reason: Cough or Congestion Stop: 09/16/17 23:54 Meropenem 1 gm/ Dextrose 100 mls @ 100 mls/hr IV Q12H [facility] Stop: 09/30/17 14:59 Last Admin: 08/09/17 14:02 Dose: 100 mls/hr Sodium Chloride (Nacl 0.9%) 1,000 mls @ 75 mls/hr IV .[id number] [facility] Stop: 10/01/17 15:29 Last Admin: 08/09/17 11:49 Dose: 75 mls/hr Vancomycin HCl 750 mg/ Sodium (Chloride) 250 mls @ 250 mls/hr IV Q48H [facility] Stop: 10/04/17 20:59 Last Infusion: 08/07/17 22:00 Dose: Infused Insulin Aspart (Novolog) 0 units SUBQ Q6HR [facility] PRN Reason: Protocol Stop: 09/18/17 17:59 Last Admin: 08/09/17 11:49 Dose: Not Given Insulin Detemir (Levemir Insulin) 24 units SUBQ BID [facility]LE PRN Reason: Protocol Stop: 09/20/17 08:59 Last Admin: 08/09/17 09:12 Dose: 24 units Lactobacillus Rhamnosus (Culturelle 15b) 1 each PO DAILY [facility] Stop: 09/30/17 10:59 Last Admin: 08/09/17 09:11 Dose: 1 each Magnesium Hydroxide (Milk Of Magnesia) 30 ml GT HS PRN PRN Reason: Constipation Stop: 09/16/17 23:47 Metoclopramide HCl (Reglan) 10 mg GT Q8H [facility] Stop: 09/20/17 13:01 Last Admin: 08/09/17 12:36 Dose: 10 mg Miscellaneous (Vancomycin Iv Per Pharmacy) 1 ea MC PRN [facility] Stop: 09/16/17 23:44 Miscellaneous (Clinical Monitoring) 1 ea MC PRN PRN PRN Reason: RENAL DOSE MER[place] Stop: 09/17/17 08:23 Miscellaneous (Probiotic Screen) 1 ea MC PRN PRN PRN Reason: PROTOCOL Stop: 09/17/17 10:14 Miscellaneous (Vte Chemical Prophylaxis Screen/ Admission) 1 ea MC PRN PRN PRN Reason: PROTOCOL Stop: 09/17/17 13:47 Morphine Sulfate (Morphine) 2 mg IVP Q4H PRN PRN Reason: Pain (Severe) Stop: 09/16/17 23:53 Last Admin: 08/06/17 21:13 Dose: 2 mg Ondansetron HCl (Zofran) 4 mg IV Q8H PRN PRN Reason: Nausea / Vomiting Stop: 09/16/17 23:54 Last Admin: 07/21/17 18:48 Dose: 4 mg Sodium Phosphate (Fleet Enema) 135 ml RC Q48H PRN PRN Reason: Constipation Stop: 09/16/17 23:47 Zinc Sulfate (Zinc Sulfate) 220 mg GT DAILY [facility] Stop: 09/17/17 08:59 Last Admin: 08/09/17 09:11 Dose: 220 mg General: weak, congested, demented, obtunded HEENT: NC/AT, PERRLA Neck: Supple, + trach Lungs: congested, rales, ronchi Cardiovascular: RRR, without murmur Abdomen: soft, non-tender, non-distended, +GT, positive bowel sound Extremities: excoriation, ulcers stage 3 Neurological: bedbound, spastic - Procedures Procedures: Procedures Procedure Code Date RESPIRATORY VENTILATION, GREATER THAN 96 CONSECUTIVE HOURS [id number] 07/18/17 Internal Medicine Assmt/Plan - Assessment Assessment: sepsis cdiff chronic respiratory failure VDRF leukocytosis hematuria-improved htn dm2 cad chf anemia tracheostomy status hypokalemia acute renal insufficiency elevated troponin mild protein calorie malnutrition acute uti - Plan Plan: contact isolation continue with ivabx renal follow up monitor h/h follow up labs in am vent support continue current plan of care Nutritional Asmnt/Malnutr-PDOC - Dietary Evaluation Malnutrition Findings (Please click <Entered> for more info): Nutritional Asmnt/Malnutrition Start: 07/19/17 17: 24 Text: Status: Complete Freq: Document 07/19/17 17:25 LCHENG (Rec: 07/19/17 17:43 LCHENG [email or web address]) Nutritional Asmnt/Malnutrition Patient General Information Nutritional Screening High Risk Consult Diagnosis Sepsis, UTI Pertinent Medical Hx/Surgical Hx HTN, DM, CAD, CHF, chronic resperatory failure, anemia, PEG/Gtube, tracheostomy Subjective Information Consult received for elevated BG. Pt seen lying in bed, on vent, non verbal comminication noted. Not able to obtain nutrition hx. Spoke with RN, no nutrition plan at this time . Current Diet Order/ Nutrition Support NPO Pertinent Medications Vitamin C, novolog, cultrelle, reglan, vancomycin, , piperacillin, Nacl 0.9%, Zinc Pertinent Labs 07/19 Na 132, K 5.3, Cl 97L, BUN 137, Cr 2.7, Glu 353, POC 324-394, A1C 6.2 Nutritional Hx/Data Height 5 ft 2 in Height (Calculated Centimeters) 157.5 Current Weight (lbs) 178 lb 3.2 oz Weight (Calculated Kilograms) 80.8 Weight (Calculated Grams) 64389.2 [place] Body Weight 110 % [place] Body Weight 162 Body Mass Index (BMI) 32.5 Weight Status Obese GI Symptoms GI Symptoms None Last BM none Usual diet at home Glucerna 1.5 60ml/hr x 20hr daily at [facility] Skin Integrity/Comment: decubitus ulceration to sacrum Estimated Nutritional Goals BEE in Kcals: Adj wt of IBW Calories/Kcals/Kg 30-35 Kcals Calculated Protein: Adj wt of IBW Protein g/k.2-1.5 Protein Calculated 69-87 Fluid: ml Nutritional Problem 2. Problem Problem increased nutrition needs ( calorie and protein) Etiology increased metabolic demand for healing Signs/Symptoms: sepsis 1. Problem Problem altered nutrition related lab values Etiology hx of DM, acute renal insufficiency Signs/Symptoms: BUN 137, Cr 2.7, Glu 353, POC 324-394, A1C 6.2 Malnutrition Alert Protein-Calorie Malnutrition N/A Is there a minimum of two criteria No selected? Query Text:Check all the applicable criteria. A minimum of two criteria are recommended for diagnosis of either severe or non-severe malnutrition. Intervention/Recommendation Comments 1. Monitor NPO status. 2. If enteral feeding needed, recommend to start Diabetisource AC at 30ml/hr continuous. Increased to goal rate of 60ml/hr continuous as tolerated. This will provide 1728kcal, 86g protein and 1179ml water, meeting 100% of nutritional needs. 3. Monitor wt, labs and skin integrity 4. F/U as high risk in 2-3 days, 07/21-07/22 Expected Outcomes/Goals Expected Outcomes/Goals 1. Pt to meet at least 75% of nutritional needs in 2-3 days 2. Wt stability, skin to remain intact, labs to improve .
--- NOTE | 2017-08-09 21:53 | Progress Notes ---
DATE: 08/09/2017 UROLOGY PROGRESS NOTE SUBJECTIVE: The patient is in the ICU, but improved and is being sent to a long-term care facility with the ventilator and the G-tube feedings that she is tolerating well. OBJECTIVE: VITAL SIGNS: Temperature 96.9, heart rate 63 and blood pressure 143/52. ABDOMEN: Soft, nondistended and nontender. G-tube in place. EXTREMITIES: Trace edema. Flanks nontender. LUNGS: No rales. Occasional rhonchi. LABORATORY DATA: White count improved to 10.9 earlier today and then back up to 13.3, which is the lowest number, hemoglobin down to 7.6, for which she will get transfused and platelets normal. BUN 45, creatinine 0.9. Renal function has remained stable. Glucose 141, 158 and 150 with fair and moderate control of diabetes. DIAGNOSTIC DATA: EEG showed metabolic encephalopathy. CT of the head shows no acute changes as well. IMPRESSION: 1. Right hydronephrosis. We will continue to observe as the family has not indicated desire to undertake any more aggressive steps like a nephrostomy or a stent. 2. Neurogenic bladder. We will maintain [place] and change it periodically with frequent irrigations. 3. Respiratory failure with ventilator dependency, stable. 4. Leukocytosis, almost resolved, but not completely. 5. Anemia, requires blood transfusion, most likely of chronic disease. 6. Decubitus ulcer, recent debridement. JOB# [id number]
[2017-08-10] MEDS: Albuterol/Ipratropium Neb 3 ML AERS HHN SCH ×4 (00:28→19:34)
[2017-08-10] MEDS: INSULIN ASPART, RECOMBINANT 100 UNITS/ML SUBQ SCH ×4 (01:00→18:00)
[2017-08-10 05:50] LABS: % BASOPHILS 0.6 % (0.0-2.0); % MONOCYTES 6.4 % (2.0-10.0); BASOPHILE ABSOLUTE 0.1 Th/cumm (0-0.2); EOSINOPHILE ABSOLUTE 0.6 Th/cmm (0.1-0.4); HEMOGLOBIN 8.3 gm/dL (12-16); LYMPHOCYTE ABSOLUTE 2.1 Th/cmm (1.5-3.0); MEAN CELL VOLUME 86.7 fl (81-100); MEAN CORPUSCULAR HEMOGLOBIN 28.8 pg (27.0-31.0); MEAN CORPUSCULAR HGB CONC 33.2 pg (28.0-36.0); MONOCYTE ABSOLUTE 0.7 Th/cmm (0.3-1.0); NEUTROPHILE ABSOLUTE 7.8 Th/cmm (1.8-8.0); PLATELET COUNT 267 Th/cmm (150-400); RED BLOOD COUNT 2.88 Mil/cmm (3.80-5.10); RED CELL DISTRIBUTION WIDTH 14.6 % (11.5-20.0); WHITE BLOOD COUNT 11.3 Th/cmm (4.8-10.8)
[2017-08-10 06:00] LABS: ANION GAP 8.1 (7.0-16.0); BUN - UREA NITROGEN 42 mg/dL (7-25); CALCIUM SERUM 7.9 mg/dL (8.6-10.3); CARBON DIOXIDE 22.8 mEq/L (21.0-31.0); CHLORIDE 107 mEq/L (98-107); CREATININE - SERUM 0.8 mg/dL (0.6-1.2); GFR AFRICAN-AMERICAN > 60.0 ml/min (>90); GFR NON AFRICAN-AMERICAN > 60.0 ml/min; GLUCOSE 101 mg/dL (70-105); POTASSIUM SERUM 3.9 mEq/L (3.5-5.1); SODIUM SERUM 134 mEq/L (136-145)
[2017-08-10] MEDS: Lactobacillus Rhamnosus GG 15 Billion CFU CAP.SPRINK PO SCH (08:47)
[2017-08-10] MEDS: Multivitamin w/ Minerals Tab GT SCH (08:47)
[2017-08-10] MEDS: Chlorhexidine Gluconate 0.12% 15mL Mouthwash MM SCH ×2 (08:47→20:54)
[2017-08-10] MEDS: Menthol/Zinc Oxide Oint 113gm Tube TP SCH ×4 (08:50→20:54)
--- NOTE | 2017-08-10 09:36 | Progress Notes ---
DATE: 08/09/2017 SUBJECTIVE: The patient in ICU. The patient of . She does not respond to verbal. Stimulations from eye opening. No overt seizures. MEDICATIONS: Reglan, vancomycin. OBJECTIVE: VITAL SIGNS: 96.9, blood pressure 150/52, pulse is 64. NECK: Supple, no bruits. HEART: Sounds S1, S2. LUNGS: Clear. NEUROLOGIC: The patient is lying in bed. No response to verbal stimulation, to painful stimulation. The patient is found grimace. Some movement of the face. I get some extension of the arms. The patient's eyes open. He cannot look straight into space. INVESTIGATIONS: CT scan of the head shows severe generalized atrophy. Chronic. No acute process noted. EEG shows diffuse encephalopathy. No seizure activity. ASSESSMENT: 1. Encephalopathy. 2. Respiratory failure. 3. Sepsis. 4. Hematuria. 5. Diabetes. 6. Hypertension. PLAN: Continue present treatment. Thank you. JOB# [id number]
[2017-08-10] MEDS: Insulin Detemir 100 units/mL 10mL Vial SUBQ SCH ×2 (10:31→17:24)
--- NOTE | 2017-08-10 12:23 | Progress Notes ---
DATE: 08/09/2017 LOCATION: [facility], ICU bed #8. PHYSICAL EXAMINATION: VITAL SIGNS: Temperature 98, pulse 66, blood pressure 144/48. Yesterday's intake 2860, urine output 2420. HEART: Regular. LUNGS: Much clear. ABDOMEN: Benign. EXTREMITIES: Edema decreasing. LABORATORY DATA: Sodium 135, potassium 4.1, chloride 106, CO2 24, BUN 45, creatinine 0.9, calcium 8.4. ASSESSMENT: 1. Acute kidney injury, improving. PLAN: The patient's kidney status is stable with good urine output. I will sign off this case. Please call us padore Thank you for the consult. JOB# [id number]
--- NOTE | 2017-08-10 14:00 | Internal Medicine Prog Note ---
Internal Medicine Subjective - Subjective Service Date: 08/10/17 Patient is:: awake, non-verbal, non-interactive, in bed, stares blankly Patient Complaints of:: congestion, bloated Per staff patient has:: tolerating meds Internal Medicine Objective - Results Result Diagrams: 08/10/17 05:11 08/10/17 05:11 Recent Labs: Laboratory Last Values WBC 11.3 Th/cmm (4.8-10.8) H 08/10/17 05:11 RBC 2.88 Mil/cmm (3.80-5.10) L 08/10/17 05:11 Hgb 8.3 gm/dL (12-16) L 08/10/17 05:11 Hct 25.0 % (41.0-60) L 08/10/17 05:11 MCV 86.7 fl (81-100) 08/10/17 05:11 MCH 28.8 pg (27.0-31.0) 08/10/17 05:11 MCHC Differential 33.2 pg (28.0-36.0) 08/10/17 05:11 RDW 14.6 % (11.5-20.0) 08/10/17 05:11 Plt Count 267 Th/cmm (150-400) 08/10/17 05:11 MPV 10.0 fl 08/10/17 05:11 Neutrophils % 69.0 % (40.0-80.0) 08/10/17 05:11 Band Neutrophils % 4 % (0-10) 08/09/17 04:20 Lymphocytes % 19.0 % (20.0-50.0) L 08/10/17 05:11 Monocytes % 6.4 % (2.0-10.0) 08/10/17 05:11 Eosinophils % 5.0 % (0.0-5.0) 08/10/17 05:11 Basophils % 0.6 % (0.0-2.0) 08/10/17 05:11 Neutrophils (Manual) 59 % (40-80) 08/09/17 04:20 Lymphocytes 28 % (20-50) 08/09/17 04:20 Monocytes 3 % (2-10) 08/09/17 04:20 Eosinophils 4 % (0-5) 08/09/17 04:20 Basophils 2 % (0-3) 08/09/17 04:20 Hypochromia 1+ 07/30/17 04:30 Platelet Estimate ADEQUATE (NORMAL) 08/04/17 04:45 Polychromasia 1+ 07/30/17 04:30 Smear Path Review YES 07/18/17 22:15 Eos Smear Source URINE 07/19/17 22:30 Eos Smear Total Cells NONE SEEN (NONE SEEN) 07/19/17 22:30 PT 9.8 SECONDS (9.5-11.5) 08/07/17 04:40 INR 0.94 (0.5-1.4) 08/07/17 04:40 PTT (Actin FS) 25.6 SECONDS (26.0-38.0) L 08/07/17 04:40 Specimen Source Arterial 07/25/17 14:15 Sample Site RIGHT BRACHIAL 07/25/17 14:15 pH 7.48 (7.35-7.45) H 07/25/17 14:15 pCO2 33.0 mmHg (35.0-45.0) L 07/25/17 14:15 pO2 144.0 mmHg (80.0-100.0) H 07/25/17 14:15 HCO3 26.1 mEq/L (20.0-26.0) H 07/25/17 14:15 Base Excess 1.5 mEq/L (-3.0-3.0) 07/25/17 14:15 O2 Saturation 99.0 % (92.0-100.0) 07/25/17 14:15 Cricket Test Positive 07/25/17 14:15 Vent Rate 12 07/25/17 14:15 Inspired O2 35 07/25/17 14:15 Tidal Volume 500 07/25/17 14:15 PEEP 5 07/25/17 14:15 Pressure (ins/psv/peep) N/A 07/25/17 14:15 Critical Value HSTEHNO 07/25/17 14:15 Sodium 134 mEq/L (136-145) L 08/10/17 05:11 Potassium 3.9 mEq/L (3.5-5.1) 08/10/17 05:11 Chloride 107 mEq/L (98-107) 08/10/17 05:11 Carbon Dioxide 22.8 mEq/L (21.0-31.0) 08/10/17 05:11 Anion Gap 8.1 (7.0-16.0) 08/10/17 05:11 BUN 42 mg/dL (7-25) H 08/10/17 05:11 Creatinine 0.8 mg/dL (0.6-1.2) 08/10/17 05:11 Est GFR ( Amer) > 60.0 ml/min (>90) 08/10/17 05:11 Est GFR (Non-Af Amer) > 60.0 ml/min 08/10/17 05:11 BUN/Creatinine Ratio 52.5 08/10/17 05:11 Glucose 101 mg/dL (70-105) 08/10/17 05:11 POC Glucose 105 MG/DL (70 - 105) 08/10/17 11:35 Hemoglobin A1c % 6.2 % (4.0-6.0) H 07/18/17 23:30 Plasma/Ser Osmolality 344 mOsmol/kg (280-301) H 07/19/17 23:30 Whole Bld Lactic Acid 0.61 mmol/L (0.60-1.99) 07/20/17 04:10 Uric Acid 9.5 mg/dL (2.3-6.6) H 07/20/17 04:10 Calcium 7.9 mg/dL (8.6-10.3) L 08/10/17 05:11 Phosphorus 4.5 mg/dL (2.5-5.0) 07/20/17 04:10 Magnesium 1.8 mg/dL (1.9-2.7) L 07/28/17 05:00 Iron 36 ug/dL (27-139) 07/30/17 04:30 TIBC 160 ug/dL (250-450) L 07/30/17 04:30 Iron Saturation 23 % (15-55) 07/30/17 04:30 Unsaturated IBC 124 ug/dL (118-369) 07/30/17 04:30 Total Bilirubin 0.3 mg/dL (0.3-1.0) 08/01/17 05:55 AST 9 U/L (13-39) L 08/01/17 05:55 ALT 11 U/L (7-52) 08/01/17 05:55 Alkaline Phosphatase 111 U/L (34-104) H 08/01/17 05:55 Ammonia 34 umol/L (16-53) 08/08/17 05:10 Creatine Kinase 26 U/L (30-223) L 07/18/17 22:15 Troponin I 0.27 ng/mL (0.01-0.05) H* 07/18/17 22:15 B-Natriuretic Peptide 341.0 pg/mL (5.0-100.0) H 08/07/17 04:40 Total Protein 6.4 gm/dL (6.0-8.3) 08/01/17 05:55 Albumin 2.9 gm/dL (3.7-5.3) L 08/01/17 05:55 Globulin 3.5 gm/dL 08/01/17 05:55 Albumin/Globulin Ratio 0.8 (1.0-1.8) L 08/01/17 05:55 Vitamin B12 >1999 pg/mL (232-1245) H 07/30/17 04:30 Folic Acid >20.0 ng/mL (>3.0) 07/30/17 04:30 TSH 2.30 uIU/ml (0.34-5.60) 07/19/17 04:15 Urine Source [place] 07/18/17 21:30 Urine Color RED 07/18/17 21:30 Urine Clarity CLOUDY (CLEAR) H 07/18/17 21:30 Urine pH 7.5 (4.6 - 8.0) 07/18/17 21:30 Ur Specific [place] 1.025 (1.005-1.030) 07/18/17 21:30 Urine Protein >=300 mg/dL (NEGATIVE) 07/18/17 21:30 Urine Glucose (UA) NEGATIVE mg/dL (NEGATIVE) 07/18/17 21:30 Urine Ketones NEGATIVE mg/dL (NEGATIVE) 07/18/17 21:30 Urine Blood LARGE (NEGATIVE) H 07/18/17 21:30 Urine Nitrate NEGATIVE (NEGATIVE) 07/18/17 21:30 Urine Bilirubin NEGATIVE (NEGATIVE) 07/18/17 21:30 Urine Urobilinogen 0.2 E.U./dL (0.2 - 1.0) 07/18/17 21:30 Ur Leukocyte Esterase SMALL (NEGATIVE) H 07/18/17 21:30 Urine RBC 50-100 /hpf (0-5) H 07/18/17 21:30 Urine WBC 6-10 /hpf (0-5) H 07/18/17 21:30 Ur Epithelial Cells FEW /lpf (FEW) 07/18/17 21:30 Urine Bacteria MANY /hpf (NONE SEEN) 07/18/17 21:30 Ur Random Sodium 28 mmol/L 07/19/17 22:30 Urine Creatinine 26.3 mg/dl (Not Estab.) 07/19/17 22:30 Urine Microalbumin 2398.5 ug/mL (Not Estab.) 07/19/17 22:30 Microalb/Creat Ratio 9119.8 07/19/17 22:30 Stool Occult Blood NEGATIVE (NEGATIVE) 07/24/17 03:37 Vancomycin Trough 15.1 ug/mL (10-20) 08/09/17 20:13 Random Vancomycin 17.6 ug/mL (5.0-40.0) 08/07/17 04:40 Blood Type O NEGATIVE 08/09/17 07:55 Antibody Screen NEGATIVE 08/09/17 07:55 Crossmatch See Detail 08/09/17 07:55 - Physical Exam Vitals and I&O: Vital Signs Temp 96.8 F 08/10/17 12:00 Pulse 66 08/10/17 13:36 Resp 18 08/10/17 12:00 BP 152/53 08/10/17 12:00 Pulse Ox 100 08/10/17 13:36 Intake & Output 08/09/17 08/10/17 08/10/17 18:59 06:59 18:59 Intake Total 1596.25 1250 Output Total 1450 980 Balance 146.25 1250 -980 Weight (lbs) 197 lb 6 oz 197 lb Intake: Intake, IV Amount 156.25 1250 Meropenem 1 gm In 100 Dextrose 5% 100 ml @ 100 mls/hr IV Q12H [facility] Rx#: [id number] Sodium Chloride 0.9% 1, 56.25 1000 000 ml @ 75 mls/hr IV . [id number] [facility] Rx#:[id number] Vancomycin HCl 750 mg In 250 Sodium Chloride 0.9% 250 ml @ 250 mls/hr IV Q48H [facility] Rx#:[id number] Tube Feeding 840 Blood Product 250 Other 350 Output: Urine 1350 900 Stool 100 80 Other: Stool Characteristics Liquid Liquid Liquid Brown Brown Brown Active Medications: Current Medications Acetaminophen (Tylenol 650mg/20.3ml Suspension) 650 mg GT Q4H PRN PRN Reason: Pain or Fever >101 Stop: 09/16/17 23:47 Last Admin: 07/22/17 00:35 Dose: 650 mg Albuterol/Ipratropium (Duoneb Neb) 3 ml HHN Q6HRT [facility] Stop: 09/17/17 12:59 Last Admin: 08/10/17 13:36 Dose: 3 ml Albuterol/Ipratropium (Duoneb Neb) 3 ml HHN Q2HR PRN PRN Reason: Shortness of Breath Stop: 09/16/17 23:47 Ascorbic Acid (Vitamin C) 500 mg GT DAILY [facility] Stop: 09/17/17 08:59 Last Admin: 08/10/17 08:47 Dose: 500 mg Bisacodyl (Dulcolax 10 Mg Supp) 10 mg RC DAILY PRN PRN Reason: constip Stop: 09/16/17 23:47 Calamine/Phenol (Calmoseptine) 1 appl TP QID PRN PRN Reason: Skin Irritation Stop: 09/24/17 09:35 Calamine/Phenol (Calmoseptine) 1 appl TP QID [facility] Stop: 09/24/17 12:59 Last Admin: 08/10/17 12:37 Dose: 1 appl Carvedilol (Coreg) 6.25 mg GT BID [facility] Stop: 09/17/17 08:59 Last Admin: 08/10/17 08:47 Dose: 6.25 mg [place] Oil/Canadian Balsam/Trypsin (Venelex) 1 appl TP DAILY [facility] Stop: 09/25/17 08:59 Last Admin: 08/09/17 09:12 Dose: 1 appl Chlorhexidine Gluconate (Peridex) 15 ml MM 0800,1999 [facility] Stop: 09/17/17 07:59 Last Admin: 08/10/17 08:47 Dose: 15 ml Docusate Sodium (Colace) 100 mg GT BID PRN PRN Reason: Constipation Famotidine (Pepcid) 20 mg GT Q12H [facility] Stop: 09/16/17 23:44 Last Admin: 08/10/17 12:36 Dose: 20 mg Guaifenesin (Robitussin) 200 mg PO Q4HR PRN PRN Reason: Cough or Congestion Stop: 09/16/17 23:54 Meropenem 1 gm/ Dextrose 100 mls @ 100 mls/hr IV Q12H [facility] Stop: 09/30/17 14:59 Last Admin: 08/10/17 03:38 Dose: 100 mls/hr Sodium Chloride (Nacl 0.9%) 1,000 mls @ 75 mls/hr IV .[id number] [facility] Stop: 10/01/17 15:29 Last Infusion: 08/10/17 05:55 Dose: Infused Vancomycin HCl 750 mg/ Sodium (Chloride) 250 mls @ 167 mls/hr IV Q48H [facility] Stop: 10/10/17 08:59 Insulin Aspart (Novolog) 0 units SUBQ Q6HR [facility] PRN Reason: Protocol Stop: 09/18/17 17:59 Last Admin: 08/10/17 06:03 Dose: Not Given Insulin Detemir (Levemir Insulin) 24 units SUBQ BID [facility] PRN Reason: Protocol Stop: 09/20/17 08:59 Last Admin: 08/10/17 10:31 Dose: 24 units Lactobacillus Rhamnosus (Culturelle 15b) 1 each PO DAILY [facility] Stop: 09/30/17 10:59 Last Admin: 08/10/17 08:47 Dose: 1 each Magnesium Hydroxide (Milk Of Magnesia) 30 ml GT HS PRN PRN Reason: Constipation Stop: 09/16/17 23:47 Metoclopramide HCl (Reglan) 10 mg GT Q8H [facility] Stop: 09/20/17 13:01 Last Admin: 08/10/17 12:36 Dose: 10 mg Miscellaneous (Vancomycin Iv Per Pharmacy) 1 ea MC PRN [facility] Stop: 09/16/17 23:44 Miscellaneous (Clinical Monitoring) 1 ea MC PRN PRN PRN Reason: RENAL DOSE MERREM Stop: 09/17/17 08:23 Miscellaneous (Probiotic Screen) 1 ea MC PRN PRN PRN Reason: PROTOCOL Stop: 09/17/17 10:14 Miscellaneous (Vte Chemical Prophylaxis Screen/ Admission) 1 ea MC PRN PRN PRN Reason: PROTOCOL Stop: 09/17/17 13:47 Morphine Sulfate (Morphine) 2 mg IVP Q4H PRN PRN Reason: Pain (Severe) Stop: 09/16/17 23:53 Last Admin: 08/06/17 21:13 Dose: 2 mg Ondansetron HCl (Zofran) 4 mg IV Q8H PRN PRN Reason: Nausea / Vomiting Stop: 09/16/17 23:54 Last Admin: 07/21/17 18:48 Dose: 4 mg Sodium Phosphate (Fleet Enema) 135 ml RC Q48H PRN PRN Reason: Constipation Stop: 09/16/17 23:47 Zinc Sulfate (Zinc Sulfate) 220 mg GT DAILY [facility] Stop: 09/17/17 08:59 Last Admin: 08/10/17 08:47 Dose: 220 mg General: weak, congested, demented, obtunded HEENT: NC/AT, PERRLA Neck: Supple, + trach Lungs: congested, rales, ronchi Cardiovascular: RRR, without murmur Abdomen: soft, non-tender, non-distended, +GT, positive bowel sound Extremities: excoriation, ulcers stage 3 Neurological: bedbound, spastic - Procedures Procedures: Procedures Procedure Code Date RESPIRATORY VENTILATION, GREATER THAN 96 CONSECUTIVE HOURS [id number] 07/18/17 Internal Medicine Assmt/Plan - Assessment Assessment: sepsis cdiff chronic respiratory failure VDRF leukocytosis hematuria-improved htn dm2 cad chf anemia tracheostomy status hypokalemia acute renal insufficiency elevated troponin mild protein calorie malnutrition acute uti - Plan Plan: contact isolation continue with ivabx renal follow up monitor h/h follow up labs in am vent support continue current plan of care Nutritional Asmnt/Malnutr-PDOC - Dietary Evaluation Malnutrition Findings (Please click <Entered> for more info): Nutritional Asmnt/Malnutrition Start: 07/19/17 17: 24 Text: Status: Complete Freq: Document 07/19/17 17:25 LCHENG (Rec: 07/19/17 17:43 LCHENG [email or web address]) Nutritional Asmnt/Malnutrition Patient General Information Nutritional Screening High Risk Consult Diagnosis Sepsis, UTI Pertinent Medical Hx/Surgical Hx HTN, DM, CAD, CHF, chronic resperatory failure, anemia, PEG/Gtube, tracheostomy Subjective Information Consult received for elevated BG. Pt seen lying in bed, on vent, non verbal comminication noted. Not able to obtain nutrition hx. Spoke with RN, no nutrition plan at this time . Current Diet Order/ Nutrition Support NPO Pertinent Medications Vitamin C, novolog, cultrelle, reglan, vancomycin, , piperacillin, Nacl 0.9%, Zinc Pertinent Labs 07/19 Na 132, K 5.3, Cl 97L, BUN 137, Cr 2.7, Glu 353, POC 324-394, A1C 6.2 Nutritional Hx/Data Height 5 ft 2 in Height (Calculated Centimeters) 157.5 Current Weight (lbs) 178 lb 3.2 oz Weight (Calculated Kilograms) 80.8 Weight (Calculated Grams) 53769.2 [place] Body Weight 110 % [place] Body Weight 162 Body Mass Index (BMI) 32.5 Weight Status Obese GI Symptoms GI Symptoms None Last BM none Usual diet at home Glucerna 1.5 60ml/hr x 20hr daily at [facility] Skin Integrity/Comment: decubitus ulceration to sacrum Estimated Nutritional Goals BEE in Kcals: Adj wt of IBW Calories/Kcals/Kg 30-35 Kcals Calculated Protein: Adj wt of IBW Protein g/k.2-1.5 Protein Calculated 69-87 Fluid: ml Nutritional Problem 2. Problem Problem increased nutrition needs ( calorie and protein) Etiology increased metabolic demand for healing Signs/Symptoms: sepsis 1. Problem Problem altered nutrition related lab values Etiology hx of DM, acute renal insufficiency Signs/Symptoms: BUN 137, Cr 2.7, Glu 353, POC 324-394, A1C 6.2 Malnutrition Alert Protein-Calorie Malnutrition N/A Is there a minimum of two criteria No selected? Query Text:Check all the applicable criteria. A minimum of two criteria are recommended for diagnosis of either severe or non-severe malnutrition. Intervention/Recommendation Comments 1. Monitor NPO status. 2. If enteral feeding needed, recommend to start Diabetisource AC at 30ml/hr continuous. Increased to goal rate of 60ml/hr continuous as tolerated. This will provide 1728kcal, 86g protein and 1179ml water, meeting 100% of nutritional needs. 3. Monitor wt, labs and skin integrity 4. F/U as high risk in 2-3 days, 07/21-07/22 Expected Outcomes/Goals Expected Outcomes/Goals 1. Pt to meet at least 75% of nutritional needs in 2-3 days 2. Wt stability, skin to remain intact, labs to improve .
[2017-08-10] MEDS: Venelex 60gm Tube TP SCH (15:14)
[2017-08-11] MEDS: INSULIN ASPART, RECOMBINANT 100 UNITS/ML SUBQ SCH ×4 (00:05→17:30)
[2017-08-11] MEDS: Albuterol/Ipratropium Neb 3 ML AERS HHN SCH ×4 (01:09→18:52)
[2017-08-11 05:18] LABS: % EOSINOPHILS 4.8 % (0.0-5.0); % LYMPHOCYTES 18.9 % (20.0-50.0); % MONOCYTES 5.9 % (2.0-10.0); % NEUTROPHILS 70.4 % (40.0-80.0); EOSINOPHILE ABSOLUTE 0.7 Th/cmm (0.1-0.4); HEMATOCRIT 27.4 % (41.0-60); HEMOGLOBIN 9.2 gm/dL (12-16); LYMPHOCYTE ABSOLUTE 2.6 Th/cmm (1.5-3.0); MEAN CELL VOLUME 86.1 fl (81-100); MEAN CORPUSCULAR HEMOGLOBIN 28.8 pg (27.0-31.0); MEAN CORPUSCULAR HGB CONC 33.5 pg (28.0-36.0); MONOCYTE ABSOLUTE 0.8 Th/cmm (0.3-1.0); NEUTROPHILE ABSOLUTE 9.5 Th/cmm (1.8-8.0); PLATELET COUNT 269 Th/cmm (150-400); RED BLOOD COUNT 3.19 Mil/cmm (3.80-5.10); RED CELL DISTRIBUTION WIDTH 14.3 % (11.5-20.0)
[2017-08-11 05:29] LABS: WHITE BLOOD COUNT 13.6 Th/cmm (4.8-10.8)
[2017-08-11 05:30] LABS: ANION GAP 9.3 (7.0-16.0); BUN - UREA NITROGEN 43 mg/dL (7-25); CALCIUM SERUM 8.4 mg/dL (8.6-10.3); CHLORIDE 104 mEq/L (98-107); CREATININE - SERUM 0.8 mg/dL (0.6-1.2); GFR AFRICAN-AMERICAN > 60.0 ml/min (>90); GFR NON AFRICAN-AMERICAN > 60.0 ml/min; GLUCOSE 85 mg/dL (70-105); POTASSIUM SERUM 4.3 mEq/L (3.5-5.1); SODIUM SERUM 133 mEq/L (136-145)
[2017-08-11] MEDS: Venelex 60gm Tube TP SCH (08:45)
[2017-08-11] MEDS: Lactobacillus Rhamnosus GG 15 Billion CFU CAP.SPRINK PO SCH (08:46)
[2017-08-11] MEDS: Multivitamin w/ Minerals Tab GT SCH (08:46)
[2017-08-11] MEDS: Chlorhexidine Gluconate 0.12% 15mL Mouthwash MM SCH ×2 (08:46→21:04)
[2017-08-11] MEDS: Insulin Detemir 100 units/mL 10mL Vial SUBQ SCH ×2 (08:48→17:34)
[2017-08-11] MEDS: Menthol/Zinc Oxide Oint 113gm Tube TP SCH ×4 (08:48→21:04)
--- NOTE | 2017-08-11 13:19 | Internal Medicine Prog Note ---
Internal Medicine Subjective - Subjective Service Date: 08/11/17 Patient is:: awake, non-verbal, non-interactive, in bed, stares blankly Patient Complaints of:: congestion, bloated Per staff patient has:: tolerating meds Internal Medicine Objective - Results Result Diagrams: 08/11/17 04:30 08/11/17 04:30 Recent Labs: Laboratory Last Values WBC 13.6 Th/cmm (4.8-10.8) H D 08/11/17 04:30 RBC 3.19 Mil/cmm (3.80-5.10) L 08/11/17 04:30 Hgb 9.2 gm/dL (12-16) L 08/11/17 04:30 Hct 27.4 % (41.0-60) L 08/11/17 04:30 MCV 86.1 fl (81-100) 08/11/17 04:30 MCH 28.8 pg (27.0-31.0) 08/11/17 04:30 MCHC Differential 33.5 pg (28.0-36.0) 08/11/17 04:30 RDW 14.3 % (11.5-20.0) 08/11/17 04:30 Plt Count 269 Th/cmm (150-400) 08/11/17 04:30 MPV 11.0 fl 08/11/17 04:30 Neutrophils % 70.4 % (40.0-80.0) 08/11/17 04:30 Band Neutrophils % 4 % (0-10) 08/09/17 04:20 Lymphocytes % 18.9 % (20.0-50.0) L 08/11/17 04:30 Monocytes % 5.9 % (2.0-10.0) 08/11/17 04:30 Eosinophils % 4.8 % (0.0-5.0) 08/11/17 04:30 Basophils % 0.0 % (0.0-2.0) 08/11/17 04:30 Neutrophils (Manual) 59 % (40-80) 08/09/17 04:20 Lymphocytes 28 % (20-50) 08/09/17 04:20 Monocytes 3 % (2-10) 08/09/17 04:20 Eosinophils 4 % (0-5) 08/09/17 04:20 Basophils 2 % (0-3) 08/09/17 04:20 Hypochromia 1+ 07/30/17 04:30 Platelet Estimate ADEQUATE (NORMAL) 08/04/17 04:45 Polychromasia 1+ 07/30/17 04:30 Smear Path Review YES 07/18/17 22:15 Eos Smear Source URINE 07/19/17 22:30 Eos Smear Total Cells NONE SEEN (NONE SEEN) 07/19/17 22:30 PT 9.8 SECONDS (9.5-11.5) 08/07/17 04:40 INR 0.94 (0.5-1.4) 08/07/17 04:40 PTT (Actin FS) 25.6 SECONDS (26.0-38.0) L 08/07/17 04:40 Specimen Source Arterial 07/25/17 14:15 Sample Site RIGHT BRACHIAL 07/25/17 14:15 pH 7.48 (7.35-7.45) H 07/25/17 14:15 pCO2 33.0 mmHg (35.0-45.0) L 07/25/17 14:15 pO2 144.0 mmHg (80.0-100.0) H 07/25/17 14:15 HCO3 26.1 mEq/L (20.0-26.0) H 07/25/17 14:15 Base Excess 1.5 mEq/L (-3.0-3.0) 07/25/17 14:15 O2 Saturation 99.0 % (92.0-100.0) 07/25/17 14:15 Cricket Test Positive 07/25/17 14:15 Vent Rate 12 07/25/17 14:15 Inspired O2 35 07/25/17 14:15 Tidal Volume 500 07/25/17 14:15 PEEP 5 07/25/17 14:15 Pressure (ins/psv/peep) N/A 07/25/17 14:15 Critical Value HSTEHNO 07/25/17 14:15 Sodium 133 mEq/L (136-145) L 08/11/17 04:30 Potassium 4.3 mEq/L (3.5-5.1) 08/11/17 04:30 Chloride 104 mEq/L (98-107) 08/11/17 04:30 Carbon Dioxide 24.0 mEq/L (21.0-31.0) 08/11/17 04:30 Anion Gap 9.3 (7.0-16.0) 08/11/17 04:30 BUN 43 mg/dL (7-25) H 08/11/17 04:30 Creatinine 0.8 mg/dL (0.6-1.2) 08/11/17 04:30 Est GFR ( Amer) > 60.0 ml/min (>90) 08/11/17 04:30 Est GFR (Non-Af Amer) > 60.0 ml/min 08/11/17 04:30 BUN/Creatinine Ratio 53.8 08/11/17 04:30 Glucose 85 mg/dL (70-105) 08/11/17 04:30 POC Glucose 71 MG/DL (70 - 105) 08/11/17 11:37 Hemoglobin A1c % 6.2 % (4.0-6.0) H 07/18/17 23:30 Plasma/Ser Osmolality 344 mOsmol/kg (280-301) H 07/19/17 23:30 Whole Bld Lactic Acid 0.61 mmol/L (0.60-1.99) 07/20/17 04:10 Uric Acid 9.5 mg/dL (2.3-6.6) H 07/20/17 04:10 Calcium 8.4 mg/dL (8.6-10.3) L 08/11/17 04:30 Phosphorus 4.5 mg/dL (2.5-5.0) 07/20/17 04:10 Magnesium 1.8 mg/dL (1.9-2.7) L 07/28/17 05:00 Iron 36 ug/dL (27-139) 07/30/17 04:30 TIBC 160 ug/dL (250-450) L 07/30/17 04:30 Iron Saturation 23 % (15-55) 07/30/17 04:30 Unsaturated IBC 124 ug/dL (118-369) 07/30/17 04:30 Total Bilirubin 0.3 mg/dL (0.3-1.0) 08/01/17 05:55 AST 9 U/L (13-39) L 08/01/17 05:55 ALT 11 U/L (7-52) 08/01/17 05:55 Alkaline Phosphatase 111 U/L (34-104) H 08/01/17 05:55 Ammonia 34 umol/L (16-53) 08/08/17 05:10 Creatine Kinase 26 U/L (30-223) L 07/18/17 22:15 Troponin I 0.27 ng/mL (0.01-0.05) H* 07/18/17 22:15 B-Natriuretic Peptide 341.0 pg/mL (5.0-100.0) H 08/07/17 04:40 Total Protein 6.4 gm/dL (6.0-8.3) 08/01/17 05:55 Albumin 2.9 gm/dL (3.7-5.3) L 08/01/17 05:55 Globulin 3.5 gm/dL 08/01/17 05:55 Albumin/Globulin Ratio 0.8 (1.0-1.8) L 08/01/17 05:55 Vitamin B12 >1999 pg/mL (232-1245) H 07/30/17 04:30 Folic Acid >20.0 ng/mL (>3.0) 07/30/17 04:30 TSH 2.30 uIU/ml (0.34-5.60) 07/19/17 04:15 Urine Source [place] 07/18/17 21:30 Urine Color RED 07/18/17 21:30 Urine Clarity CLOUDY (CLEAR) H 07/18/17 21:30 Urine pH 7.5 (4.6 - 8.0) 07/18/17 21:30 Ur Specific [place] 1.025 (1.005-1.030) 07/18/17 21:30 Urine Protein >=300 mg/dL (NEGATIVE) 07/18/17 21:30 Urine Glucose (UA) NEGATIVE mg/dL (NEGATIVE) 07/18/17 21:30 Urine Ketones NEGATIVE mg/dL (NEGATIVE) 07/18/17 21:30 Urine Blood LARGE (NEGATIVE) H 07/18/17 21:30 Urine Nitrate NEGATIVE (NEGATIVE) 07/18/17 21:30 Urine Bilirubin NEGATIVE (NEGATIVE) 07/18/17 21:30 Urine Urobilinogen 0.2 E.U./dL (0.2 - 1.0) 07/18/17 21:30 Ur Leukocyte Esterase SMALL (NEGATIVE) H 07/18/17 21:30 Urine RBC 50-100 /hpf (0-5) H 07/18/17 21:30 Urine WBC 6-10 /hpf (0-5) H 07/18/17 21:30 Ur Epithelial Cells FEW /lpf (FEW) 07/18/17 21:30 Urine Bacteria MANY /hpf (NONE SEEN) 07/18/17 21:30 Ur Random Sodium 28 mmol/L 07/19/17 22:30 Urine Creatinine 26.3 mg/dl (Not Estab.) 07/19/17 22:30 Urine Microalbumin 2398.5 ug/mL (Not Estab.) 07/19/17 22:30 Microalb/Creat Ratio 9119.8 07/19/17 22:30 Stool Occult Blood NEGATIVE (NEGATIVE) 07/24/17 03:37 Vancomycin Trough 15.1 ug/mL (10-20) 08/09/17 20:13 Random Vancomycin 17.6 ug/mL (5.0-40.0) 08/07/17 04:40 Blood Type O NEGATIVE 08/09/17 07:55 Antibody Screen NEGATIVE 08/09/17 07:55 Crossmatch See Detail 08/09/17 07:55 - Physical Exam Vitals and I&O: Vital Signs Temp 97 F 08/11/17 08:00 Pulse 55 08/11/17 13:05 Resp 13 08/11/17 10:00 BP 130/46 08/11/17 10:00 Pulse Ox 100 08/11/17 13:05 Intake & Output 08/10/17 08/11/17 08/11/17 18:59 06:59 18:59 Intake Total 1000 250 Output Total 2680 1150 Balance -1680 -1150 250 Weight (lbs) 197 lb 197 lb Intake: Intake, IV Amount 100 250 Meropenem 1 gm In 100 Dextrose 5% 100 ml @ 100 mls/hr IV Q12H ISABELLE Rx#: [id number] Vancomycin HCl 750 mg In 250 Sodium Chloride 0.9% 250 ml @ 167 mls/hr IV Q48H ISABELLE Rx#:[id number] Tube Feeding 900 Output: Urine 2550 1100 Stool 130 50 Other: Stool Characteristics Liquid Liquid Liquid Brown Brown Brown Active Medications: Current Medications Acetaminophen (Tylenol 650mg/20.3ml Suspension) 650 mg GT Q4H PRN PRN Reason: Pain or Fever >101 Stop: 09/16/17 23:47 Last Admin: 07/22/17 00:35 Dose: 650 mg Albuterol/Ipratropium (Duoneb Neb) 3 ml HHN Q6HRT ISABELLE Stop: 09/17/17 12:59 Last Admin: 08/11/17 13:05 Dose: 3 ml Albuterol/Ipratropium (Duoneb Neb) 3 ml HHN Q2HR PRN PRN Reason: Shortness of Breath Stop: 09/16/17 23:47 Ascorbic Acid (Vitamin C) 500 mg GT DAILY ISABELLE Stop: 09/17/17 08:59 Last Admin: 08/11/17 08:47 Dose: 500 mg Bisacodyl (Dulcolax 10 Mg Supp) 10 mg RC DAILY PRN PRN Reason: constip Stop: 09/16/17 23:47 Calamine/Phenol (Calmoseptine) 1 appl TP QID PRN PRN Reason: Skin Irritation Stop: 09/24/17 09:35 Calamine/Phenol (Calmoseptine) 1 appl TP QID ISABELLE Stop: 09/24/17 12:59 Last Admin: 08/11/17 12:06 Dose: 1 appl Carvedilol (Coreg) 6.25 mg GT BID ISABELLE Stop: 09/17/17 08:59 Last Admin: 08/11/17 08:47 Dose: 6.25 mg [place] Oil/[place]anish Balsam/Trypsin (Venelex) 1 appl TP DAILY ISABELLE Stop: 09/25/17 08:59 Last Admin: 08/11/17 08:45 Dose: 1 appl Chlorhexidine Gluconate (Peridex) 15 ml MM 0800,2000 [facility] Stop: 09/17/17 07:59 Last Admin: 08/11/17 08:46 Dose: 15 ml Docusate Sodium (Colace) 100 mg GT BID PRN PRN Reason: Constipation Famotidine (Pepcid) 20 mg GT Q12H [facility] Stop: 09/16/17 23:44 Last Admin: 08/11/17 12:03 Dose: 20 mg Guaifenesin (Robitussin) 200 mg PO Q4HR PRN PRN Reason: Cough or Congestion Stop: 09/16/17 23:54 Meropenem 1 gm/ Dextrose 100 mls @ 100 mls/hr IV Q12H ISABELLE Stop: 09/30/17 14:59 Last Admin: 08/11/17 02:54 Dose: 100 mls/hr Sodium Chloride (Nacl 0.9%) 1,000 mls @ 75 mls/hr IV .[id number] [facility] Stop: 10/01/17 15:29 Last Infusion: 08/10/17 05:55 Dose: Infused Vancomycin HCl 750 mg/ Sodium (Chloride) 250 mls @ 167 mls/hr IV Q48H [facility] Stop: 10/10/17 08:59 Last Infusion: 08/11/17 10:19 Dose: Infused Insulin Aspart (Novolog) 0 units SUBQ Q6HR ISABELLE PRN Reason: Protocol Stop: 09/18/17 17:59 Last Admin: 08/11/17 11:43 Dose: Not Given Insulin Detemir (Levemir Insulin) 24 units SUBQ BID ISABELLE PRN Reason: Protocol Stop: 09/20/17 08:59 Last Admin: 08/11/17 08:48 Dose: 24 units Lactobacillus Rhamnosus (Culturelle 15b) 1 each PO DAILY [facility] Stop: 09/30/17 10:59 Last Admin: 08/11/17 08:46 Dose: 1 each Magnesium Hydroxide (Milk Of Magnesia) 30 ml GT HS PRN PRN Reason: Constipation Stop: 09/16/17 23:47 Metoclopramide HCl (Reglan) 10 mg GT Q8H [facility] Stop: 09/20/17 13:01 Last Admin: 08/11/17 12:03 Dose: 10 mg Miscellaneous (Vancomycin Iv Per Pharmacy) 1 ea MC PRN [facility] Stop: 09/16/17 23:44 Miscellaneous (Clinical Monitoring) 1 ea MC PRN PRN PRN Reason: RENAL DOSE MERREM Stop: 09/17/17 08:23 Miscellaneous (Probiotic Screen) 1 ea MC PRN PRN PRN Reason: PROTOCOL Stop: 09/17/17 10:14 Miscellaneous (Vte Chemical Prophylaxis Screen/ Admission) 1 ea MC PRN PRN PRN Reason: PROTOCOL Stop: 09/17/17 13:47 Morphine Sulfate (Morphine) 2 mg IVP Q4H PRN PRN Reason: Pain (Severe) Stop: 09/16/17 23:53 Last Admin: 08/06/17 21:13 Dose: 2 mg Ondansetron HCl (Zofran) 4 mg IV Q8H PRN PRN Reason: Nausea / Vomiting Stop: 09/16/17 23:54 Last Admin: 07/21/17 18:48 Dose: 4 mg Sodium Phosphate (Fleet Enema) 135 ml RC Q48H PRN PRN Reason: Constipation Stop: 09/16/17 23:47 Zinc Sulfate (Zinc Sulfate) 220 mg GT DAILY ISABELLE Stop: 09/17/17 08:59 Last Admin: 08/11/17 08:46 Dose: 220 mg General: weak, congested, demented, obtunded HEENT: NC/AT, PERRLA Neck: Supple, + trach Lungs: congested, rales, ronchi Cardiovascular: RRR, without murmur Abdomen: soft, non-tender, non-distended, +GT, positive bowel sound Extremities: excoriation, ulcers stage 3 Neurological: bedbound, spastic - Procedures Procedures: Procedures Procedure Code Date RESPIRATORY VENTILATION, GREATER THAN 96 CONSECUTIVE HOURS [id number] 07/18/17 Internal Medicine Assmt/Plan - Assessment Assessment: sepsis cdiff chronic respiratory failure VDRF leukocytosis hematuria-improved htn dm2 cad chf anemia tracheostomy status hypokalemia acute renal insufficiency elevated troponin mild protein calorie malnutrition acute uti - Plan Plan: contact isolation continue with ivabx renal follow up monitor h/h follow up labs in am vent support continue current plan of care Nutritional Asmnt/Malnutr-PDOC - Dietary Evaluation Malnutrition Findings (Please click <Entered> for more info): Nutritional Asmnt/Malnutrition Start: 07/19/17 17: 24 Text: Status: Complete Freq: Document 07/19/17 17:25 LCHENG (Rec: 07/19/17 17:43 LCHENG [email or web address]) Nutritional Asmnt/Malnutrition Patient General Information Nutritional Screening High Risk Consult Diagnosis Sepsis, UTI Pertinent Medical Hx/Surgical Hx HTN, DM, CAD, CHF, chronic resperatory failure, anemia, PEG/Gtube, tracheostomy Subjective Information Consult received for elevated BG. Pt seen lying in bed, on vent, non verbal comminication noted. Not able to obtain nutrition hx. Spoke with RN, no nutrition plan at this time . Current Diet Order/ Nutrition Support NPO Pertinent Medications Vitamin C, novolog, cultrelle, reglan, vancomycin, , piperacillin, Nacl 0.9%, Zinc Pertinent Labs 07/19 Na 132, K 5.3, Cl 97L, BUN 137, Cr 2.7, Glu 353, POC 324-394, A1C 6.2 Nutritional Hx/Data Height 5 ft 2 in Height (Calculated Centimeters) 157.5 Current Weight (lbs) 178 lb 3.2 oz Weight (Calculated Kilograms) 80.8 Weight (Calculated Grams) 02878.2 [place] Body Weight 110 % [place] Body Weight 162 Body Mass Index (BMI) 32.5 Weight Status Obese GI Symptoms GI Symptoms None Last BM none Usual diet at home Glucerna 1.5 60ml/hr x 20hr daily at [facility] Skin Integrity/Comment: decubitus ulceration to sacrum Estimated Nutritional Goals BEE in Kcals: Adj wt of IBW Calories/Kcals/Kg 30-35 Kcals Calculated Protein: Adj wt of IBW Protein g/k.2-1.5 Protein Calculated 69-87 Fluid: ml Nutritional Problem 2. Problem Problem increased nutrition needs ( calorie and protein) Etiology increased metabolic demand for healing Signs/Symptoms: sepsis 1. Problem Problem altered nutrition related lab values Etiology hx of DM, acute renal insufficiency Signs/Symptoms: BUN 137, Cr 2.7, Glu 353, POC 324-394, A1C 6.2 Malnutrition Alert Protein-Calorie Malnutrition N/A Is there a minimum of two criteria No selected? Query Text:Check all the applicable criteria. A minimum of two criteria are recommended for diagnosis of either severe or non-severe malnutrition. Intervention/Recommendation Comments 1. Monitor NPO status. 2. If enteral feeding needed, recommend to start Diabetisource AC at 30ml/hr continuous. Increased to goal rate of 60ml/hr continuous as tolerated. This will provide 1728kcal, 86g protein and 1179ml water, meeting 100% of nutritional needs. 3. Monitor wt, labs and skin integrity 4. F/U as high risk in 2-3 days, 07/21-07/22 Expected Outcomes/Goals Expected Outcomes/Goals 1. Pt to meet at least 75% of nutritional needs in 2-3 days 2. Wt stability, skin to remain intact, labs to improve .
--- NOTE | 2017-08-11 13:35 | General Progress Note ---
Subjective - Review of Systems Service Date: 08/11/17 Subjective: arousable, comfortable, on vent Objective - Results Result Diagrams: 08/11/17 04:30 08/11/17 04:30 Recent Labs: Laboratory Last Values WBC 13.6 Th/cmm (4.8-10.8) H D 08/11/17 04:30 RBC 3.19 Mil/cmm (3.80-5.10) L 08/11/17 04:30 Hgb 9.2 gm/dL (12-16) L 08/11/17 04:30 Hct 27.4 % (41.0-60) L 08/11/17 04:30 MCV 86.1 fl (81-100) 08/11/17 04:30 MCH 28.8 pg (27.0-31.0) 08/11/17 04:30 MCHC Differential 33.5 pg (28.0-36.0) 08/11/17 04:30 RDW 14.3 % (11.5-20.0) 08/11/17 04:30 Plt Count 269 Th/cmm (150-400) 08/11/17 04:30 MPV 11.0 fl 08/11/17 04:30 Neutrophils % 70.4 % (40.0-80.0) 08/11/17 04:30 Band Neutrophils % 4 % (0-10) 08/09/17 04:20 Lymphocytes % 18.9 % (20.0-50.0) L 08/11/17 04:30 Monocytes % 5.9 % (2.0-10.0) 08/11/17 04:30 Eosinophils % 4.8 % (0.0-5.0) 08/11/17 04:30 Basophils % 0.0 % (0.0-2.0) 08/11/17 04:30 Neutrophils (Manual) 59 % (40-80) 08/09/17 04:20 Lymphocytes 28 % (20-50) 08/09/17 04:20 Monocytes 3 % (2-10) 08/09/17 04:20 Eosinophils 4 % (0-5) 08/09/17 04:20 Basophils 2 % (0-3) 08/09/17 04:20 Hypochromia 1+ 07/30/17 04:30 Platelet Estimate ADEQUATE (NORMAL) 08/04/17 04:45 Polychromasia 1+ 07/30/17 04:30 Smear Path Review YES 07/18/17 22:15 Eos Smear Source URINE 07/19/17 22:30 Eos Smear Total Cells NONE SEEN (NONE SEEN) 07/19/17 22:30 PT 9.8 SECONDS (9.5-11.5) 08/07/17 04:40 INR 0.94 (0.5-1.4) 08/07/17 04:40 PTT (Actin FS) 25.6 SECONDS (26.0-38.0) L 08/07/17 04:40 Specimen Source Arterial 07/25/17 14:15 Sample Site RIGHT BRACHIAL 07/25/17 14:15 pH 7.48 (7.35-7.45) H 07/25/17 14:15 pCO2 33.0 mmHg (35.0-45.0) L 07/25/17 14:15 pO2 144.0 mmHg (80.0-100.0) H 07/25/17 14:15 HCO3 26.1 mEq/L (20.0-26.0) H 07/25/17 14:15 Base Excess 1.5 mEq/L (-3.0-3.0) 07/25/17 14:15 O2 Saturation 99.0 % (92.0-100.0) 07/25/17 14:15 Cricket Test Positive 07/25/17 14:15 Vent Rate 12 07/25/17 14:15 Inspired O2 35 07/25/17 14:15 Tidal Volume 500 07/25/17 14:15 PEEP 5 07/25/17 14:15 Pressure (ins/psv/peep) N/A 07/25/17 14:15 Critical Value HSTEHNO 07/25/17 14:15 Sodium 133 mEq/L (136-145) L 08/11/17 04:30 Potassium 4.3 mEq/L (3.5-5.1) 08/11/17 04:30 Chloride 104 mEq/L (98-107) 08/11/17 04:30 Carbon Dioxide 24.0 mEq/L (21.0-31.0) 08/11/17 04:30 Anion Gap 9.3 (7.0-16.0) 08/11/17 04:30 BUN 43 mg/dL (7-25) H 08/11/17 04:30 Creatinine 0.8 mg/dL (0.6-1.2) 08/11/17 04:30 Est GFR ( Amer) > 60.0 ml/min (>90) 08/11/17 04:30 Est GFR (Non-Af Amer) > 60.0 ml/min 08/11/17 04:30 BUN/Creatinine Ratio 53.8 08/11/17 04:30 Glucose 85 mg/dL (70-105) 08/11/17 04:30 POC Glucose 71 MG/DL (70 - 105) 08/11/17 11:37 Hemoglobin A1c % 6.2 % (4.0-6.0) H 07/18/17 23:30 Plasma/Ser Osmolality 344 mOsmol/kg (280-301) H 07/19/17 23:30 Whole Bld Lactic Acid 0.61 mmol/L (0.60-1.99) 07/20/17 04:10 Uric Acid 9.5 mg/dL (2.3-6.6) H 07/20/17 04:10 Calcium 8.4 mg/dL (8.6-10.3) L 08/11/17 04:30 Phosphorus 4.5 mg/dL (2.5-5.0) 07/20/17 04:10 Magnesium 1.8 mg/dL (1.9-2.7) L 07/28/17 05:00 Iron 36 ug/dL (27-139) 07/30/17 04:30 TIBC 160 ug/dL (250-450) L 07/30/17 04:30 Iron Saturation 23 % (15-55) 07/30/17 04:30 Unsaturated IBC 124 ug/dL (118-369) 07/30/17 04:30 Total Bilirubin 0.3 mg/dL (0.3-1.0) 08/01/17 05:55 AST 9 U/L (13-39) L 08/01/17 05:55 ALT 11 U/L (7-52) 08/01/17 05:55 Alkaline Phosphatase 111 U/L (34-104) H 08/01/17 05:55 Ammonia 34 umol/L (16-53) 08/08/17 05:10 Creatine Kinase 26 U/L (30-223) L 07/18/17 22:15 Troponin I 0.27 ng/mL (0.01-0.05) H* 07/18/17 22:15 B-Natriuretic Peptide 341.0 pg/mL (5.0-100.0) H 08/07/17 04:40 Total Protein 6.4 gm/dL (6.0-8.3) 08/01/17 05:55 Albumin 2.9 gm/dL (3.7-5.3) L 08/01/17 05:55 Globulin 3.5 gm/dL 08/01/17 05:55 Albumin/Globulin Ratio 0.8 (1.0-1.8) L 08/01/17 05:55 Vitamin B12 >1999 pg/mL (232-1245) H 07/30/17 04:30 Folic Acid >20.0 ng/mL (>3.0) 07/30/17 04:30 TSH 2.30 uIU/ml (0.34-5.60) 07/19/17 04:15 Urine Source [place] 07/18/17 21:30 Urine Color RED 07/18/17 21:30 Urine Clarity CLOUDY (CLEAR) H 07/18/17 21:30 Urine pH 7.5 (4.6 - 8.0) 07/18/17 21:30 Ur Specific [place] 1.025 (1.005-1.030) 07/18/17 21:30 Urine Protein >=300 mg/dL (NEGATIVE) 07/18/17 21:30 Urine Glucose (UA) NEGATIVE mg/dL (NEGATIVE) 07/18/17 21:30 Urine Ketones NEGATIVE mg/dL (NEGATIVE) 07/18/17 21:30 Urine Blood LARGE (NEGATIVE) H 07/18/17 21:30 Urine Nitrate NEGATIVE (NEGATIVE) 07/18/17 21:30 Urine Bilirubin NEGATIVE (NEGATIVE) 07/18/17 21:30 Urine Urobilinogen 0.2 E.U./dL (0.2 - 1.0) 07/18/17 21:30 Ur Leukocyte Esterase SMALL (NEGATIVE) H 07/18/17 21:30 Urine RBC 50-100 /hpf (0-5) H 07/18/17 21:30 Urine WBC 6-10 /hpf (0-5) H 07/18/17 21:30 Ur Epithelial Cells FEW /lpf (FEW) 07/18/17 21:30 Urine Bacteria MANY /hpf (NONE SEEN) 07/18/17 21:30 Ur Random Sodium 28 mmol/L 07/19/17 22:30 Urine Creatinine 26.3 mg/dl (Not Estab.) 07/19/17 22:30 Urine Microalbumin 2398.5 ug/mL (Not Estab.) 07/19/17 22:30 Microalb/Creat Ratio 9119.8 07/19/17 22:30 Stool Occult Blood NEGATIVE (NEGATIVE) 07/24/17 03:37 Vancomycin Trough 15.1 ug/mL (10-20) 08/09/17 20:13 Random Vancomycin 17.6 ug/mL (5.0-40.0) 08/07/17 04:40 Blood Type O NEGATIVE 08/09/17 07:55 Antibody Screen NEGATIVE 08/09/17 07:55 Crossmatch See Detail 08/09/17 07:55 - Physical Exam Vitals and I&O: Vital Signs Temp 97 F 08/11/17 08:00 Pulse 55 08/11/17 13:05 Resp 13 08/11/17 10:00 BP 130/46 08/11/17 10:00 Pulse Ox 100 08/11/17 13:05 Intake & Output 08/10/17 08/11/17 08/11/17 18:59 06:59 18:59 Intake Total 1000 250 Output Total 2680 1150 Balance -1680 -1150 250 Weight (lbs) 89.358 kg 89.358 kg Intake: Intake, IV Amount 100 250 Meropenem 1 gm In 100 Dextrose 5% 100 ml @ 100 mls/hr IV Q12H [facility] Rx#: [id number] Vancomycin HCl 750 mg In 250 Sodium Chloride 0.9% 250 ml @ 167 mls/hr IV Q48H [facility] Rx#:[id number] Tube Feeding 900 Output: Urine 2550 1100 Stool 130 50 Other: Stool Characteristics Liquid Liquid Liquid Brown Brown Brown Active Medications: Current Medications Acetaminophen (Tylenol 650mg/20.3ml Suspension) 650 mg GT Q4H PRN PRN Reason: Pain or Fever >101 Stop: 09/16/17 23:47 Last Admin: 07/22/17 00:35 Dose: 650 mg Albuterol/Ipratropium (Duoneb Neb) 3 ml HHN Q6HRT [facility] Stop: 09/17/17 12:59 Last Admin: 08/11/17 13:05 Dose: 3 ml Albuterol/Ipratropium (Duoneb Neb) 3 ml HHN Q2HR PRN PRN Reason: Shortness of Breath Stop: 09/16/17 23:47 Ascorbic Acid (Vitamin C) 500 mg GT DAILY [facility] Stop: 09/17/17 08:59 Last Admin: 08/11/17 08:47 Dose: 500 mg Bisacodyl (Dulcolax 10 Mg Supp) 10 mg RC DAILY PRN PRN Reason: constip Stop: 09/16/17 23:47 Calamine/Phenol (Calmoseptine) 1 appl TP QID PRN PRN Reason: Skin Irritation Stop: 09/24/17 09:35 Calamine/Phenol (Calmoseptine) 1 appl TP QID [facility] Stop: 09/24/17 12:59 Last Admin: 08/11/17 12:06 Dose: 1 appl Carvedilol (Coreg) 6.25 mg GT BID [facility] Stop: 09/17/17 08:59 Last Admin: 08/11/17 08:47 Dose: 6.25 mg [place] Oil/[place] Balsam/Trypsin (Venelex) 1 appl TP DAILY [facility] Stop: 09/25/17 08:59 Last Admin: 08/11/17 08:45 Dose: 1 appl Chlorhexidine Gluconate (Peridex) 15 ml MM 0800,2000 [facility] Stop: 09/17/17 07:59 Last Admin: 08/11/17 08:46 Dose: 15 ml Docusate Sodium (Colace) 100 mg GT BID PRN PRN Reason: Constipation Famotidine (Pepcid) 20 mg GT Q12H [facility] Stop: 09/16/17 23:44 Last Admin: 08/11/17 12:03 Dose: 20 mg Guaifenesin (Robitussin) 200 mg PO Q4HR PRN PRN Reason: Cough or Congestion Stop: 09/16/17 23:54 Meropenem 1 gm/ Dextrose 100 mls @ 100 mls/hr IV Q12H [facility] Stop: 09/30/17 14:59 Last Admin: 08/11/17 02:54 Dose: 100 mls/hr Sodium Chloride (Nacl 0.9%) 1,000 mls @ 75 mls/hr IV .[id number] [facility] Stop: 10/01/17 15:29 Last Infusion: 08/10/17 05:55 Dose: Infused Vancomycin HCl 750 mg/ Sodium (Chloride) 250 mls @ 167 mls/hr IV Q48H [facility] Stop: 10/10/17 08:59 Last Infusion: 08/11/17 10:19 Dose: Infused Insulin Aspart (Novolog) 0 units SUBQ Q6HR [facility] PRN Reason: Protocol Stop: 09/18/17 17:59 Last Admin: 08/11/17 11:43 Dose: Not Given Insulin Detemir (Levemir Insulin) 24 units SUBQ BID [facility] PRN Reason: Protocol Stop: 09/20/17 08:59 Last Admin: 08/11/17 08:48 Dose: 24 units Lactobacillus Rhamnosus (Culturelle 15b) 1 each PO DAILY [facility] Stop: 09/30/17 10:59 Last Admin: 08/11/17 08:46 Dose: 1 each Magnesium Hydroxide (Milk Of Magnesia) 30 ml GT HS PRN PRN Reason: Constipation Stop: 09/16/17 23:47 Metoclopramide HCl (Reglan) 10 mg GT Q8H [facility] Stop: 09/20/17 13:01 Last Admin: 08/11/17 12:03 Dose: 10 mg Miscellaneous (Vancomycin Iv Per Pharmacy) 1 ea MC PRN [facility] Stop: 09/16/17 23:44 Miscellaneous (Clinical Monitoring) 1 ea MC PRN PRN PRN Reason: RENAL DOSE MERREM Stop: 09/17/17 08:23 Miscellaneous (Probiotic Screen) 1 ea MC PRN PRN PRN Reason: PROTOCOL Stop: 09/17/17 10:14 Miscellaneous (Vte Chemical Prophylaxis Screen/ Admission) 1 ea MC PRN PRN PRN Reason: PROTOCOL Stop: 09/17/17 13:47 Morphine Sulfate (Morphine) 2 mg IVP Q4H PRN PRN Reason: Pain (Severe) Stop: 09/16/17 23:53 Last Admin: 08/06/17 21:13 Dose: 2 mg Ondansetron HCl (Zofran) 4 mg IV Q8H PRN PRN Reason: Nausea / Vomiting Stop: 09/16/17 23:54 Last Admin: 12/21/17 18:48 Dose: 4 mg Sodium Phosphate (Fleet Enema) 135 ml RC Q48H PRN PRN Reason: Constipation Stop: 09/16/17 23:47 Zinc Sulfate (Zinc Sulfate) 220 mg GT DAILY [facility] Stop: 09/17/17 08:59 Last Admin: 08/11/17 08:46 Dose: 220 mg General: Alert, No acute distress HEENT: Atraumatic, Mucous membr. moist/pink Neck: Supple, +2 carotid pulse wo bruit Cardiovascular: Regular rate, Normal S1, Normal S2 Lungs: Other (few rhonchi) Abdomen: Soft, Distended Extremities: no Edema Neurological: Sensation intact Skin: no Rash Psych/Mental Status: Mood NL - Procedures Procedures: Procedures Procedure Code Date RESPIRATORY VENTILATION, GREATER THAN 96 CONSECUTIVE HOURS [id number] 07/18/17 Assessment/Plan - Assessment Assessment: ADELA Right Hydronephrosis, hydroureter w/ partial obstruction since has good UOP, improvement Kidney fnc Gross hematuria 2nd to trauma better Sepsis 2nd to Cx UTI RFVD Anemia CD Ess Htn Type 2 DM Met Enceph C. diff colitis Hypokalemia Hypernatremia - Plan Plan: Lab - Result Diagrams 07/20/17 04:10 07/20/17 04:10 Current Medications Acetaminophen (Tylenol 650mg/20.3ml Suspension) 650 mg GT Q4H PRN PRN Reason: Pain or Fever >101 Stop: 09/16/17 23:47 Albuterol/Ipratropium (Duoneb Neb) 3 ml HHN Q6HRT [facility] Stop: 09/17/17 12:59 Last Admin: 07/20/17 13:39 Dose: 3 ml Albuterol/Ipratropium (Duoneb Neb) 3 ml HHN Q2HR PRN PRN Reason: Shortness of Breath Stop: 09/16/17 23:47 Ascorbic Acid (Vitamin C) 500 mg GT DAILY [facility] Stop: 09/17/17 08:59 Last Admin: 07/20/17 09:07 Dose: 500 mg Bisacodyl (Dulcolax 10 Mg Supp) 10 mg RC DAILY PRN PRN Reason: constip Stop: 09/16/17 23:47 Carvedilol (Coreg) 3.125 mg GT BID [facility] Stop: 09/17/17 08:59 Last Admin: 07/20/17 16:43 Dose: 3.125 mg Chlorhexidine Gluconate (Peridex) 15 ml MM 08,1999 [facility] Stop: 09/17/17 07:59 Last Admin: 07/20/17 07:56 Dose: 15 ml Docusate Sodium (Colace) 100 mg GT BID PRN PRN Reason: Constipation Famotidine (Pepcid) 20 mg GT Q12H [facility] Stop: 09/16/17 23:44 Last Admin: 07/20/17 11:56 Dose: 20 mg Guaifenesin (Robitussin) 200 mg PO Q4HR PRN PRN Reason: Cough or Congestion Stop: 09/16/17 23:54 Heparin Sodium (Porcine) (Heparin) 5,000 units SUBQ Q12HR [facility] Stop: 09/17/17 08:59 Last Admin: 07/20/17 09:09 Dose: 5,000 units Piperacillin Sod/Tazobactam (Sod 2.25 gm/ Sodium Chloride) 100 mls @ 100 mls/ hr IV Q8H [facility] Stop: 09/17/17 08:59 Last Admin: 07/20/17 16:43 Dose: 100 mls/hr Vancomycin HCl 1 gm/ Dextrose 250 mls @ 165 mls/hr IV Q36H [facility] Stop: 09/18/17 01:59 Last Infusion: 07/20/17 04:00 Dose: Infused Sodium Chloride (Nacl 0.9%) 1,000 mls @ 100 mls/hr IV .Q10H [facility] Stop: 09/16/17 23:44 Last Admin: 07/20/17 02:00 Dose: 100 mls/hr Insulin Aspart (Novolog) 0 units SUBQ Q6HR [facility] PRN Reason: Protocol Stop: 09/18/17 17:59 Insulin Detemir (Levemir Insulin) 18 units SUBQ BID [facility] PRN Reason: Protocol Stop: 09/18/17 08:59 Last Admin: 07/20/17 16:44 Dose: 18 units Lactobacillus Rhamnosus (Culturelle) 1 each PO DAILY [facility] Stop: 09/18/17 08:59 Last Admin: 07/20/17 09:07 Dose: 1 each Magnesium Hydroxide (Milk Of Magnesia) 30 ml GT HS PRN PRN Reason: Constipation Stop: 09/16/17 23:47 Metoclopramide HCl (Reglan) 5 mg GT Q8H [facility] Stop: 09/16/17 23:44 Last Admin: 07/20/17 15:45 Dose: Not Given Miscellaneous (Vancomycin Iv Per Pharmacy) 1 ea MC PRN [facility] Stop: 09/16/17 23:44 Miscellaneous (Clinical Monitoring) 1 ea MC PRN PRN PRN Reason: RENAL DOSE [facility] Stop: 09/17/17 08:23 Miscellaneous (Probiotic Screen) 1 ea MC PRN PRN PRN Reason: PROTOCOL Stop: 09/17/17 10:14 Miscellaneous (Vte Chemical Prophylaxis Screen/ Admission) 1 ea MC PRN PRN PRN Reason: PROTOCOL Stop: 09/17/17 13:47 Morphine Sulfate (Morphine) 2 mg IVP Q4H PRN PRN Reason: Pain (Severe) Stop: 09/16/17 23:53 Ondansetron HCl (Zofran) 4 mg IV Q8H PRN PRN Reason: Nausea / Vomiting Stop: 09/16/17 23:54 Sodium Phosphate (Fleet Enema) 135 ml RC Q48H PRN PRN Reason: Constipation Stop: 09/16/17 23:47 Vancomycin HCl (Vancomycin Oral) 250 mg GT Q6HR [facility] Stop: 09/18/17 17:59 Last Admin: 07/20/17 17:54 Dose: 250 mg Zinc Sulfate (Zinc Sulfate) 220 mg GT DAILY [facility] Stop: 09/17/17 08:59 Last Admin: 07/20/17 09:07 Dose: 22 Lab - Result Diagrams 08/11/17 04:30 08/11/17 04:30 no cahnge kidney fnc w/ BUN/Cr of 43/0.8 UOP still adequate Na down to 133 K elevation iatrogenic no further hematuria CT pelvis revealed right hydronephrosis/ureter Increase IVF 75 ml/hr since now in negative balance w/ clear CXR f/u elelctrolytes, cbc GT feed 70 ml/hr Nutritional Asmnt/Malnutr-PDOC - Dietary Evaluation Malnutrition Findings (Please click <Entered> for more info): Nutritional Asmnt/Malnutrition Start: 07/19/17 17: 24 Text: Status: Complete Freq: Document 07/19/17 17:25 LCJOSE DE JESUSG (Rec: 07/19/17 17:43 LCHENG [email or web address]) Nutritional Asmnt/Malnutrition Patient General Information Nutritional Screening High Risk Consult Diagnosis Sepsis, UTI Pertinent Medical Hx/Surgical Hx HTN, DM, CAD, CHF, chronic resperatory failure, anemia, PEG/Gtube, tracheostomy Subjective Information Consult received for elevated BG. Pt seen lying in bed, on vent, non verbal comminication noted. Not able to obtain nutrition hx. Spoke with RN, no nutrition plan at this time . Current Diet Order/ Nutrition Support NPO Pertinent Medications Vitamin C, novolog, cultrelle, reglan, vancomycin, , piperacillin, Nacl 0.9%, Zinc Pertinent Labs 07/19 Na 132, K 5.3, Cl 97L, BUN 137, Cr 2.7, Glu 353, POC 324-394, A1C 6.2 Nutritional Hx/Data Height 1.57 m Height (Calculated Centimeters) 157.5 Current Weight (lbs) 80.83 kg Weight (Calculated Kilograms) 80.8 Weight (Calculated Grams) 22666.2 Surveyor Body Weight 110 % Surveyor Body Weight 162 Body Mass Index (BMI) 32.5 Weight Status Obese GI Symptoms GI Symptoms None Last BM none Usual diet at home Glucerna 1.5 60ml/hr x 20hr daily at [facility] Skin Integrity/Comment: decubitus ulceration to sacrum Estimated Nutritional Goals BEE in Kcals: Adj wt of IBW Calories/Kcals/Kg 30-35 Kcals Calculated [id number] Protein: Adj wt of IBW Protein g/k.2-1.5 Protein Calculated 69-87 Fluid: ml 8282-7761 Nutritional Problem 2. Problem Problem increased nutrition needs ( calorie and protein) Etiology increased metabolic demand for healing Signs/Symptoms: sepsis 1. Problem Problem altered nutrition related lab values Etiology hx of DM, acute renal insufficiency Signs/Symptoms: BUN 137, Cr 2.7, Glu 353, POC 324-394, A1C 6.2 Malnutrition Alert Protein-Calorie Malnutrition N/A Is there a minimum of two criteria No selected? Query Text:Check all the applicable criteria. A minimum of two criteria are recommended for diagnosis of either severe or non-severe malnutrition. Intervention/Recommendation Comments 1. Monitor NPO status. 2. If enteral feeding needed, recommend to start Diabetisource AC at 30ml/hr continuous. Increased to goal rate of 60ml/hr continuous as tolerated. This will provide 1728kcal, 86g protein and 1179ml water, meeting 100% of nutritional needs. 3. Monitor wt, labs and skin integrity 4. F/U as high risk in 2-3 days, 07/21-07/22 Expected Outcomes/Goals Expected Outcomes/Goals 1. Pt to meet at least 75% of nutritional needs in 2-3 days 2. Wt stability, skin to remain intact, labs to improve .
[2017-08-12] MEDS: INSULIN ASPART, RECOMBINANT 100 UNITS/ML SUBQ SCH ×4 (00:26→17:07)
--- NOTE | 2017-08-12 01:17 | Progress Notes ---
DATE: 08/11/2017 UROLOGY PROGRESS NOTE SUBJECTIVE: The patient remains in the ICU, but stable apparently for difficulty finding a placement in a snf. She remained stable on the ventilator with good urine output and no blood or any problems related to the catheter. PHYSICAL EXAMINATION: VITAL SIGNS: Heart rate 62, blood pressure 130/46, sinus rhythm, and no significant pain. Last temperature 97. ABDOMEN: Soft. G-tube feeding tolerated well. No masses. No guarding or rigidity or rebound. EXTREMITIES: Trace to 1+ edema. LABORATORY DATA: Today, her white count is 13.6 in the same range in the last 2 days, hemoglobin 9.2 after transfusion, platelets 269. Sodium 133, potassium 4.3, BUN 43, creatinine 0.8. IMPRESSION: 1. Neurogenic bladder with indwelling Ocampo, tolerating well, getting catheter care and irrigations. 2. Right hydronephrosis with plans to observe it and not intervene with stent or nephrostomy due to the patient's general poor condition. 3. Diabetes and multiple sclerosis contributing to the neurogenic bladder. 4. Congestive heart failure, currently stable. 5. Coronary artery disease. No recent episodes of chest pain or EKG abnormalities. 6. Lastly, respiratory failure, ventilator and tracheostomy dependent. No change. [facility]# [id number]
[2017-08-12] MEDS: Albuterol/Ipratropium Neb 3 ML AERS HHN SCH ×3 (01:21→13:34)
[2017-08-12] MEDS: Multivitamin w/ Minerals Tab GT SCH (08:30)
[2017-08-12] MEDS: Menthol/Zinc Oxide Oint 113gm Tube TP SCH ×3 (08:30→17:07)
[2017-08-12] MEDS: Lactobacillus Rhamnosus GG 15 Billion CFU CAP.SPRINK PO SCH (08:30)
[2017-08-12] MEDS: Venelex 60gm Tube TP SCH (08:30)
[2017-08-12] MEDS: Chlorhexidine Gluconate 0.12% 15mL Mouthwash MM SCH (08:30)
[2017-08-12] MEDS: Insulin Detemir 100 units/mL 10mL Vial SUBQ SCH ×2 (08:31→16:50)
--- NOTE | 2017-08-12 12:52 | General Progress Note ---
Subjective - Review of Systems Service Date: 08/12/17 Subjective: arousable, comfortable, on vent Objective - Results Result Diagrams: 08/11/17 04:30 08/11/17 04:30 Recent Labs: Laboratory Last Values WBC 13.6 Th/cmm (4.8-10.8) H D 08/11/17 04:30 RBC 3.19 Mil/cmm (3.80-5.10) L 08/11/17 04:30 Hgb 9.2 gm/dL (12-16) L 08/11/17 04:30 Hct 27.4 % (41.0-60) L 08/11/17 04:30 MCV 86.1 fl (81-100) 08/11/17 04:30 MCH 28.8 pg (27.0-31.0) 08/11/17 04:30 MCHC Differential 33.5 pg (28.0-36.0) 08/11/17 04:30 RDW 14.3 % (11.5-20.0) 08/11/17 04:30 Plt Count 269 Th/cmm (150-400) 08/11/17 04:30 MPV 11.0 fl 08/11/17 04:30 Neutrophils % 70.4 % (40.0-80.0) 08/11/17 04:30 Band Neutrophils % 4 % (0-10) 08/09/17 04:20 Lymphocytes % 18.9 % (20.0-50.0) L 08/11/17 04:30 Monocytes % 5.9 % (2.0-10.0) 08/11/17 04:30 Eosinophils % 4.8 % (0.0-5.0) 08/11/17 04:30 Basophils % 0.0 % (0.0-2.0) 08/11/17 04:30 Neutrophils (Manual) 59 % (40-80) 08/09/17 04:20 Lymphocytes 28 % (20-50) 08/09/17 04:20 Monocytes 3 % (2-10) 08/09/17 04:20 Eosinophils 4 % (0-5) 08/09/17 04:20 Basophils 2 % (0-3) 08/09/17 04:20 Hypochromia 1+ 07/30/17 04:30 Platelet Estimate ADEQUATE (NORMAL) 08/04/17 04:45 Polychromasia 1+ 07/30/17 04:30 Smear Path Review YES 07/18/17 22:15 Eos Smear Source URINE 07/19/17 22:30 Eos Smear Total Cells NONE SEEN (NONE SEEN) 07/19/17 22:30 PT 9.8 SECONDS (9.5-11.5) 08/07/17 04:40 INR 0.94 (0.5-1.4) 08/07/17 04:40 PTT (Actin FS) 25.6 SECONDS (26.0-38.0) L 08/07/17 04:40 Specimen Source Arterial 07/25/17 14:15 Sample Site RIGHT BRACHIAL 07/25/17 14:15 pH 7.48 (7.35-7.45) H 07/25/17 14:15 pCO2 33.0 mmHg (35.0-45.0) L 07/25/17 14:15 pO2 144.0 mmHg (80.0-100.0) H 07/25/17 14:15 HCO3 26.1 mEq/L (20.0-26.0) H 07/25/17 14:15 Base Excess 1.5 mEq/L (-3.0-3.0) 07/25/17 14:15 O2 Saturation 99.0 % (92.0-100.0) 07/25/17 14:15 Cricket Test Positive 07/25/17 14:15 Vent Rate 12 07/25/17 14:15 Inspired O2 35 07/25/17 14:15 Tidal Volume 500 07/25/17 14:15 PEEP 5 07/25/17 14:15 Pressure (ins/psv/peep) N/A 07/25/17 14:15 Critical Value HSTEHNO 07/25/17 14:15 Sodium 133 mEq/L (136-145) L 08/11/17 04:30 Potassium 4.3 mEq/L (3.5-5.1) 08/11/17 04:30 Chloride 104 mEq/L (98-107) 08/11/17 04:30 Carbon Dioxide 24.0 mEq/L (21.0-31.0) 08/11/17 04:30 Anion Gap 9.3 (7.0-16.0) 08/11/17 04:30 BUN 43 mg/dL (7-25) H 08/11/17 04:30 Creatinine 0.8 mg/dL (0.6-1.2) 08/11/17 04:30 Est GFR ( Amer) > 60.0 ml/min (>90) 08/11/17 04:30 Est GFR (Non-Af Amer) > 60.0 ml/min 08/11/17 04:30 BUN/Creatinine Ratio 53.8 08/11/17 04:30 Glucose 85 mg/dL (70-105) 08/11/17 04:30 POC Glucose 136 MG/DL (70 - 105) H 08/12/17 08:32 Hemoglobin A1c % 6.2 % (4.0-6.0) H 07/18/17 23:30 Plasma/Ser Osmolality 344 mOsmol/kg (280-301) H 07/19/17 23:30 Whole Bld Lactic Acid 0.61 mmol/L (0.60-1.99) 07/20/17 04:10 Uric Acid 9.5 mg/dL (2.3-6.6) H 07/20/17 04:10 Calcium 8.4 mg/dL (8.6-10.3) L 08/11/17 04:30 Phosphorus 4.5 mg/dL (2.5-5.0) 07/20/17 04:10 Magnesium 1.8 mg/dL (1.9-2.7) L 07/28/17 05:00 Iron 36 ug/dL (27-139) 07/30/17 04:30 TIBC 160 ug/dL (250-450) L 07/30/17 04:30 Iron Saturation 23 % (15-55) 07/30/17 04:30 Unsaturated IBC 124 ug/dL (118-369) 07/30/17 04:30 Total Bilirubin 0.3 mg/dL (0.3-1.0) 08/01/17 05:55 AST 9 U/L (13-39) L 08/01/17 05:55 ALT 11 U/L (7-52) 08/01/17 05:55 Alkaline Phosphatase 111 U/L (34-104) H 08/01/17 05:55 Ammonia 34 umol/L (16-53) 08/08/17 05:10 Creatine Kinase 26 U/L (30-223) L 07/18/17 22:15 Troponin I 0.27 ng/mL (0.01-0.05) H* 07/18/17 22:15 B-Natriuretic Peptide 341.0 pg/mL (5.0-100.0) H 08/07/17 04:40 Total Protein 6.4 gm/dL (6.0-8.3) 08/01/17 05:55 Albumin 2.9 gm/dL (3.7-5.3) L 08/01/17 05:55 Globulin 3.5 gm/dL 08/01/17 05:55 Albumin/Globulin Ratio 0.8 (1.0-1.8) L 08/01/17 05:55 Vitamin B12 >1999 pg/mL (232-1245) H 07/30/17 04:30 Folic Acid >20.0 ng/mL (>3.0) 07/30/17 04:30 TSH 2.30 uIU/ml (0.34-5.60) 07/19/17 04:15 Urine Source [place] 07/18/17 21:30 Urine Color RED 07/18/17 21:30 Urine Clarity CLOUDY (CLEAR) H 07/18/17 21:30 Urine pH 7.5 (4.6 - 8.0) 07/18/17 21:30 Ur Specific [place] 1.025 (1.005-1.030) 07/18/17 21:30 Urine Protein >=300 mg/dL (NEGATIVE) 07/18/17 21:30 Urine Glucose (UA) NEGATIVE mg/dL (NEGATIVE) 07/18/17 21:30 Urine Ketones NEGATIVE mg/dL (NEGATIVE) 07/18/17 21:30 Urine Blood LARGE (NEGATIVE) H 07/18/17 21:30 Urine Nitrate NEGATIVE (NEGATIVE) 07/18/17 21:30 Urine Bilirubin NEGATIVE (NEGATIVE) 07/18/17 21:30 Urine Urobilinogen 0.2 E.U./dL (0.2 - 1.0) 07/18/17 21:30 Ur Leukocyte Esterase SMALL (NEGATIVE) H 07/18/17 21:30 Urine RBC 50-100 /hpf (0-5) H 07/18/17 21:30 Urine WBC 6-10 /hpf (0-5) H 07/18/17 21:30 Ur Epithelial Cells FEW /lpf (FEW) 07/18/17 21:30 Urine Bacteria MANY /hpf (NONE SEEN) 07/18/17 21:30 Ur Random Sodium 28 mmol/L 07/19/17 22:30 Urine Creatinine 26.3 mg/dl (Not Estab.) 07/19/17 22:30 Urine Microalbumin 2398.5 ug/mL (Not Estab.) 07/19/17 22:30 Microalb/Creat Ratio 9119.8 07/19/17 22:30 Stool Occult Blood NEGATIVE (NEGATIVE) 07/24/17 03:37 Vancomycin Trough 15.1 ug/mL (10-20) 08/09/17 20:13 Random Vancomycin 17.6 ug/mL (5.0-40.0) 08/07/17 04:40 Blood Type O NEGATIVE 08/09/17 07:55 Antibody Screen NEGATIVE 08/09/17 07:55 Crossmatch See Detail 08/09/17 07:55 - Physical Exam Vitals and I&O: Vital Signs Temp 98.4 F 08/12/17 08:00 Pulse 58 08/12/17 11:30 Resp 14 08/12/17 11:00 BP 162/54 08/12/17 11:00 Pulse Ox 100 08/12/17 12:00 Intake & Output 08/11/17 08/12/17 08/12/17 18:59 06:59 18:59 Intake Total 1250 100 Output Total 1750 1050 Balance -500 -950 Weight (lbs) 89.358 kg 89.358 kg Intake: Intake, IV Amount 350 100 Meropenem 1 gm In 100 100 Dextrose 5% 100 ml @ 100 mls/hr IV Q12H [facility] Rx#: [id number] Vancomycin HCl 750 mg In 250 Sodium Chloride 0.9% 250 ml @ 167 mls/hr IV Q48H [facility] Rx#:[id number] Tube Feeding 900 Output: Urine 1700 1000 Stool 50 50 Other: Stool Characteristics Liquid Liquid Soft Brown Brown Liquid Brown Active Medications: Current Medications Acetaminophen (Tylenol 650mg/20.3ml Suspension) 650 mg GT Q4H PRN PRN Reason: Pain or Fever >101 Stop: 09/16/17 23:47 Last Admin: 07/22/17 00:35 Dose: 650 mg Albuterol/Ipratropium (Duoneb Neb) 3 ml HHN Q6HRT [facility] Stop: 09/17/17 12:59 Last Admin: 08/12/17 07:35 Dose: 3 ml Albuterol/Ipratropium (Duoneb Neb) 3 ml HHN Q2HR PRN PRN Reason: Shortness of Breath Stop: 09/16/17 23:47 Ascorbic Acid (Vitamin C) 500 mg GT DAILY [facility] Stop: 09/17/17 08:59 Last Admin: 08/12/17 08:30 Dose: 500 mg Bisacodyl (Dulcolax 10 Mg Supp) 10 mg RC DAILY PRN PRN Reason: constip Stop: 09/16/17 23:47 Calamine/Phenol (Calmoseptine) 1 appl TP QID PRN PRN Reason: Skin Irritation Stop: 09/24/17 09:35 Calamine/Phenol (Calmoseptine) 1 appl TP QID [facility] Stop: 09/24/17 12:59 Last Admin: 08/12/17 12:39 Dose: 1 appl Carvedilol (Coreg) 6.25 mg GT BID [facility] Stop: 09/17/17 08:59 Last Admin: 08/12/17 08:30 Dose: 6.25 mg [place] Oil/Vincentian Balsam/Trypsin (Venelex) 1 appl TP DAILY [facility] Stop: 09/25/17 08:59 Last Admin: 08/12/17 08:30 Dose: 1 appl Chlorhexidine Gluconate (Peridex) 15 ml MM 0800,2000 [facility] Stop: 09/17/17 07:59 Last Admin: 08/12/17 08:30 Dose: 15 ml Docusate Sodium (Colace) 100 mg GT BID PRN PRN Reason: Constipation Famotidine (Pepcid) 20 mg GT Q12H [facility] Stop: 09/16/17 23:44 Last Admin: 08/12/17 12:38 Dose: 20 mg Guaifenesin (Robitussin) 200 mg PO Q4HR PRN PRN Reason: Cough or Congestion Stop: 09/16/17 23:54 Meropenem 1 gm/ Dextrose 100 mls @ 100 mls/hr IV Q12H [facility] Stop: 09/30/17 14:59 Last Infusion: 08/12/17 03:25 Dose: Infused Sodium Chloride (Nacl 0.9%) 1,000 mls @ 75 mls/hr IV .[id number] [facility] Stop: 10/01/17 15:29 Last Infusion: 08/10/17 05:55 Dose: Infused Vancomycin HCl 750 mg/ Sodium (Chloride) 250 mls @ 167 mls/hr IV Q48H [facility] Stop: 10/10/17 08:59 Last Infusion: 08/11/17 10:19 Dose: Infused Insulin Aspart (Novolog) 0 units SUBQ Q6HR [facility] PRN Reason: Protocol Stop: 09/18/17 17:59 Last Admin: 08/12/17 12:37 Dose: Not Given Insulin Detemir (Levemir Insulin) 24 units SUBQ BID [facility] PRN Reason: Protocol Stop: 09/20/17 08:59 Last Admin: 08/12/17 08:31 Dose: 24 units Lactobacillus Rhamnosus (Culturelle 15b) 1 each PO DAILY [facility] Stop: 09/30/17 10:59 Last Admin: 08/12/17 08:30 Dose: 1 each Magnesium Hydroxide (Milk Of Magnesia) 30 ml GT HS PRN PRN Reason: Constipation Stop: 09/16/17 23:47 Metoclopramide HCl (Reglan) 10 mg GT Q8H [facility] Stop: 09/20/17 13:01 Last Admin: 08/12/17 12:38 Dose: 10 mg Miscellaneous (Vancomycin Iv Per Pharmacy) 1 ea MC PRN [facility] Stop: 09/16/17 23:44 Miscellaneous (Clinical Monitoring) 1 ea MC PRN PRN PRN Reason: RENAL DOSE MERREM Stop: 09/17/17 08:23 Miscellaneous (Probiotic Screen) 1 ea MC PRN PRN PRN Reason: PROTOCOL Stop: 09/17/17 10:14 Miscellaneous (Vte Chemical Prophylaxis Screen/ Admission) 1 ea MC PRN PRN PRN Reason: PROTOCOL Stop: 09/17/17 13:47 Morphine Sulfate (Morphine) 2 mg IVP Q4H PRN PRN Reason: Pain (Severe) Stop: 09/16/17 23:53 Last Admin: 08/06/17 21:13 Dose: 2 mg Ondansetron HCl (Zofran) 4 mg IV Q8H PRN PRN Reason: Nausea / Vomiting Stop: 09/16/17 23:54 Last Admin: 07/21/17 18:48 Dose: 4 mg Sodium Phosphate (Fleet Enema) 135 ml RC Q48H PRN PRN Reason: Constipation Stop: 09/16/17 23:47 Zinc Sulfate (Zinc Sulfate) 220 mg GT DAILY [facility] Stop: 09/17/17 08:59 Last Admin: 08/12/17 08:30 Dose: 220 mg General: Alert, No acute distress HEENT: Atraumatic, Mucous membr. moist/pink Neck: Supple, +2 carotid pulse wo bruit Cardiovascular: Regular rate, Normal S1, Normal S2 Lungs: Other (few rhonchi) Abdomen: Soft, Distended Extremities: no Edema Neurological: Sensation intact Skin: no Rash Psych/Mental Status: Mood NL - Procedures Procedures: Procedures Procedure Code Date RESPIRATORY VENTILATION, GREATER THAN 96 CONSECUTIVE HOURS [id number] 07/18/17 Assessment/Plan - Assessment Assessment: ADELA Right Hydronephrosis, hydroureter w/ partial obstruction since has good UOP, improvement Kidney fnc Gross hematuria 2nd to trauma better Sepsis 2nd to Cx UTI RFVD Anemia CD Ess Htn Type 2 DM Met Enceph C. diff colitis Hypokalemia Hypernatremia - Plan Plan: Lab - Result Diagrams 07/20/17 04:10 07/20/17 04:10 Current Medications Acetaminophen (Tylenol 650mg/20.3ml Suspension) 650 mg GT Q4H PRN PRN Reason: Pain or Fever >101 Stop: 09/16/17 23:47 Albuterol/Ipratropium (Duoneb Neb) 3 ml HHN Q6HRT [facility] Stop: 09/17/17 12:59 Last Admin: 07/20/17 13:39 Dose: 3 ml Albuterol/Ipratropium (Duoneb Neb) 3 ml HHN Q2HR PRN PRN Reason: Shortness of Breath Stop: 09/16/17 23:47 Ascorbic Acid (Vitamin C) 500 mg GT DAILY [facility] Stop: 09/17/17 08:59 Last Admin: 07/20/17 09:07 Dose: 500 mg Bisacodyl (Dulcolax 10 Mg Supp) 10 mg RC DAILY PRN PRN Reason: constip Stop: 09/16/17 23:47 Carvedilol (Coreg) 3.125 mg GT BID [facility] Stop: 09/17/17 08:59 Last Admin: 07/20/17 16:43 Dose: 3.125 mg Chlorhexidine Gluconate (Peridex) 15 ml MM 0800,1999 [facility] Stop: 09/17/17 07:59 Last Admin: 07/20/17 07:56 Dose: 15 ml Docusate Sodium (Colace) 100 mg GT BID PRN PRN Reason: Constipation Famotidine (Pepcid) 20 mg GT Q12H [facility] Stop: 09/16/17 23:44 Last Admin: 07/20/17 11:56 Dose: 20 mg Guaifenesin (Robitussin) 200 mg PO Q4HR PRN PRN Reason: Cough or Congestion Stop: 09/16/17 23:54 Heparin Sodium (Porcine) (Heparin) 5,000 units SUBQ Q12HR [facility] Stop: 09/17/17 08:59 Last Admin: 07/20/17 09:09 Dose: 5,000 units Piperacillin Sod/Tazobactam (Sod 2.25 gm/ Sodium Chloride) 100 mls @ 100 mls/ hr IV Q8H [facility] Stop: 09/17/17 08:59 Last Admin: 07/20/17 16:43 Dose: 100 mls/hr Vancomycin HCl 1 gm/ Dextrose 250 mls @ 165 mls/hr IV Q36H [facility] Stop: 09/18/17 01:59 Last Infusion: 07/20/17 04:00 Dose: Infused Sodium Chloride (Nacl 0.9%) 1,000 mls @ 100 mls/hr IV .Q10H [facility] Stop: 09/16/17 23:44 Last Admin: 07/20/17 02:00 Dose: 100 mls/hr Insulin Aspart (Novolog) 0 units SUBQ Q6HR [facility] PRN Reason: Protocol Stop: 09/18/17 17:59 Insulin Detemir (Levemir Insulin) 18 units SUBQ BID [facility] PRN Reason: Protocol Stop: 09/18/17 08:59 Last Admin: 07/20/17 16:44 Dose: 18 units Lactobacillus Rhamnosus (Culturelle) 1 each PO DAILY [facility] Stop: 09/18/17 08:59 Last Admin: 07/20/17 09:07 Dose: 1 each Magnesium Hydroxide (Milk Of Magnesia) 30 ml GT HS PRN PRN Reason: Constipation Stop: 09/16/17 23:47 Metoclopramide HCl (Reglan) 5 mg GT Q8H [facility] Stop: 09/16/17 23:44 Last Admin: 07/20/17 15:45 Dose: Not Given Miscellaneous (Vancomycin Iv Per Pharmacy) 1 ea MC PRN [facility] Stop: 09/16/17 23:44 Miscellaneous (Clinical Monitoring) 1 ea MC PRN PRN PRN Reason: RENAL DOSE [facility] Stop: 09/17/17 08:23 Miscellaneous (Probiotic Screen) 1 ea MC PRN PRN PRN Reason: PROTOCOL Stop: 09/17/17 10:14 Miscellaneous (Vte Chemical Prophylaxis Screen/ Admission) 1 ea MC PRN PRN PRN Reason: PROTOCOL Stop: 09/17/17 13:47 Morphine Sulfate (Morphine) 2 mg IVP Q4H PRN PRN Reason: Pain (Severe) Stop: 09/16/17 23:53 Ondansetron HCl (Zofran) 4 mg IV Q8H PRN PRN Reason: Nausea / Vomiting Stop: 09/16/17 23:54 Sodium Phosphate (Fleet Enema) 135 ml RC Q48H PRN PRN Reason: Constipation Stop: 09/16/17 23:47 Vancomycin HCl (Vancomycin Oral) 250 mg GT Q6HR [facility] Stop: 09/18/17 17:59 Last Admin: 07/20/17 17:54 Dose: 250 mg Zinc Sulfate (Zinc Sulfate) 220 mg GT DAILY [facility] Stop: 09/17/17 08:59 Last Admin: 07/20/17 09:07 Dose: 22 Lab - Result Diagrams 08/11/17 04:30 08/11/17 04:30 no cahnge kidney fnc w/ BUN/Cr of 43/0.8 UOP still adequate Na down to 133 K elevation iatrogenic no further hematuria CT pelvis revealed right hydronephrosis/ureter Increase IVF 75 ml/hr since now in negative balance w/ clear CXR f/u elelctrolytes, cbc GT feed 70 ml/hr pt. starting to retain fluid, will dcerease ivf Nutritional Asmnt/Malnutr-PDOC - Dietary Evaluation Malnutrition Findings (Please click <Entered> for more info): Nutritional Asmnt/Malnutrition Start: 07/19/17 17: 24 Text: Status: Complete Freq: Document 07/19/17 17:25 LCHENG (Rec: 07/19/17 17:43 [email or web address] [email or web address]) Nutritional Asmnt/Malnutrition Patient General Information Nutritional Screening High Risk Consult Diagnosis Sepsis, UTI Pertinent Medical Hx/Surgical Hx HTN, DM, CAD, CHF, chronic resperatory failure, anemia, PEG/Gtube, tracheostomy Subjective Information Consult received for elevated BG. Pt seen lying in bed, on vent, non verbal comminication noted. Not able to obtain nutrition hx. Spoke with RN, no nutrition plan at this time . Current Diet Order/ Nutrition Support NPO Pertinent Medications Vitamin C, novolog, cultrelle, reglan, vancomycin, , piperacillin, Nacl 0.9%, Zinc Pertinent Labs 07/19 Na 132, K 5.3, Cl 97L, BUN 137, Cr 2.7, Glu 353, POC 324-394, A1C 6.2 Nutritional Hx/Data Height 1.57 m Height (Calculated Centimeters) 157.5 Current Weight (lbs) 80.83 kg Weight (Calculated Kilograms) 80.8 Weight (Calculated Grams) 45140.2 [place] Body Weight 110 % [place] Body Weight 162 Body Mass Index (BMI) 32.5 Weight Status Obese GI Symptoms GI Symptoms None Last BM none Usual diet at home Glucerna 1.5 60ml/hr x 20hr daily at [facility] Skin Integrity/Comment: decubitus ulceration to sacrum Estimated Nutritional Goals BEE in Kcals: Adj wt of IBW Calories/Kcals/Kg 30-35 Kcals Calculated Protein: Adj wt of IBW Protein g/k.2-1.5 Protein Calculated 69-87 Fluid: ml [id number] Nutritional Problem 2. Problem Problem increased nutrition needs ( calorie and protein) Etiology increased metabolic demand for healing Signs/Symptoms: sepsis 1. Problem Problem altered nutrition related lab values Etiology hx of DM, acute renal insufficiency Signs/Symptoms: BUN 137, Cr 2.7, Glu 353, POC 324-394, A1C 6.2 Malnutrition Alert Protein-Calorie Malnutrition N/A Is there a minimum of two criteria No selected? Query Text:Check all the applicable criteria. A minimum of two criteria are recommended for diagnosis of either severe or non-severe malnutrition. Intervention/Recommendation Comments 1. Monitor NPO status. 2. If enteral feeding needed, recommend to start Diabetisource AC at 30ml/hr continuous. Increased to goal rate of 60ml/hr continuous as tolerated. This will provide 1728kcal, 86g protein and 1179ml water, meeting 100% of nutritional needs. 3. Monitor wt, labs and skin integrity 4. F/U as high risk in 2-3 days, 07/21-07/22 Expected Outcomes/Goals Expected Outcomes/Goals 1. Pt to meet at least 75% of nutritional needs in 2-3 days 2. Wt stability, skin to remain intact, labs to improve .
[2017-08-12] MEDS ORDERED: Sodium Chloride 0.9% 1,000 ML IV SCH (12:53)
--- NOTE | 2017-08-12 14:35 | Internal Medicine Prog Note ---
Internal Medicine Subjective - Subjective Service Date: 08/12/17 Patient is:: awake, non-verbal, non-interactive, in bed, stares blankly Patient Complaints of:: congestion, bloated Per staff patient has:: tolerating meds Internal Medicine Objective - Results Result Diagrams: 08/11/17 04:30 08/11/17 04:30 Recent Labs: Laboratory Last Values WBC 13.6 Th/cmm (4.8-10.8) H D 08/11/17 04:30 RBC 3.19 Mil/cmm (3.80-5.10) L 08/11/17 04:30 Hgb 9.2 gm/dL (12-16) L 08/11/17 04:30 Hct 27.4 % (41.0-60) L 08/11/17 04:30 MCV 86.1 fl (81-100) 08/11/17 04:30 MCH 28.8 pg (27.0-31.0) 08/11/17 04:30 MCHC Differential 33.5 pg (28.0-36.0) 08/11/17 04:30 RDW 14.3 % (11.5-20.0) 08/11/17 04:30 Plt Count 269 Th/cmm (150-400) 08/11/17 04:30 MPV 11.0 fl 08/11/17 04:30 Neutrophils % 70.4 % (40.0-80.0) 08/11/17 04:30 Band Neutrophils % 4 % (0-10) 08/09/17 04:20 Lymphocytes % 18.9 % (20.0-50.0) L 08/11/17 04:30 Monocytes % 5.9 % (2.0-10.0) 08/11/17 04:30 Eosinophils % 4.8 % (0.0-5.0) 08/11/17 04:30 Basophils % 0.0 % (0.0-2.0) 08/11/17 04:30 Neutrophils (Manual) 59 % (40-80) 08/09/17 04:20 Lymphocytes 28 % (20-50) 08/09/17 04:20 Monocytes 3 % (2-10) 08/09/17 04:20 Eosinophils 4 % (0-5) 08/09/17 04:20 Basophils 2 % (0-3) 08/09/17 04:20 Hypochromia 1+ 07/30/17 04:30 Platelet Estimate ADEQUATE (NORMAL) 08/04/17 04:45 Polychromasia 1+ 07/30/17 04:30 Smear Path Review YES 07/18/17 22:15 Eos Smear Source URINE 07/19/17 22:30 Eos Smear Total Cells NONE SEEN (NONE SEEN) 07/19/17 22:30 PT 9.8 SECONDS (9.5-11.5) 08/07/17 04:40 INR 0.94 (0.5-1.4) 08/07/17 04:40 PTT (Actin FS) 25.6 SECONDS (26.0-38.0) L 08/07/17 04:40 Specimen Source Arterial 07/25/17 14:15 Sample Site RIGHT BRACHIAL 07/25/17 14:15 pH 7.48 (7.35-7.45) H 07/25/17 14:15 pCO2 33.0 mmHg (35.0-45.0) L 07/25/17 14:15 pO2 144.0 mmHg (80.0-100.0) H 07/25/17 14:15 HCO3 26.1 mEq/L (20.0-26.0) H 07/25/17 14:15 Base Excess 1.5 mEq/L (-3.0-3.0) 07/25/17 14:15 O2 Saturation 99.0 % (92.0-100.0) 07/25/17 14:15 Cricket Test Positive 07/25/17 14:15 Vent Rate 12 07/25/17 14:15 Inspired O2 35 07/25/17 14:15 Tidal Volume 500 07/25/17 14:15 PEEP 5 07/25/17 14:15 Pressure (ins/psv/peep) N/A 07/25/17 14:15 Critical Value HSTEHNO 07/25/17 14:15 Sodium 133 mEq/L (136-145) L 08/11/17 04:30 Potassium 4.3 mEq/L (3.5-5.1) 08/11/17 04:30 Chloride 104 mEq/L (98-107) 08/11/17 04:30 Carbon Dioxide 24.0 mEq/L (21.0-31.0) 08/11/17 04:30 Anion Gap 9.3 (7.0-16.0) 08/11/17 04:30 BUN 43 mg/dL (7-25) H 08/11/17 04:30 Creatinine 0.8 mg/dL (0.6-1.2) 08/11/17 04:30 Est GFR ( Amer) > 60.0 ml/min (>90) 08/11/17 04:30 Est GFR (Non-Af Amer) > 60.0 ml/min 08/11/17 04:30 BUN/Creatinine Ratio 53.8 08/11/17 04:30 Glucose 85 mg/dL (70-105) 08/11/17 04:30 POC Glucose 136 MG/DL (70 - 105) H 08/12/17 08:32 Hemoglobin A1c % 6.2 % (4.0-6.0) H 07/18/17 23:30 Plasma/Ser Osmolality 344 mOsmol/kg (280-301) H 07/19/17 23:30 Whole Bld Lactic Acid 0.61 mmol/L (0.60-1.99) 07/20/17 04:10 Uric Acid 9.5 mg/dL (2.3-6.6) H 07/20/17 04:10 Calcium 8.4 mg/dL (8.6-10.3) L 08/11/17 04:30 Phosphorus 4.5 mg/dL (2.5-5.0) 07/20/17 04:10 Magnesium 1.8 mg/dL (1.9-2.7) L 07/28/17 05:00 Iron 36 ug/dL (27-139) 07/30/17 04:30 TIBC 160 ug/dL (250-450) L 07/30/17 04:30 Iron Saturation 23 % (15-55) 07/30/17 04:30 Unsaturated IBC 124 ug/dL (118-369) 07/30/17 04:30 Total Bilirubin 0.3 mg/dL (0.3-1.0) 08/01/17 05:55 AST 9 U/L (13-39) L 08/01/17 05:55 ALT 11 U/L (7-52) 08/01/17 05:55 Alkaline Phosphatase 111 U/L (34-104) H 08/01/17 05:55 Ammonia 34 umol/L (16-53) 08/08/17 05:10 Creatine Kinase 26 U/L (30-223) L 07/18/17 22:15 Troponin I 0.27 ng/mL (0.01-0.05) H* 07/18/17 22:15 B-Natriuretic Peptide 341.0 pg/mL (5.0-100.0) H 08/07/17 04:40 Total Protein 6.4 gm/dL (6.0-8.3) 08/01/17 05:55 Albumin 2.9 gm/dL (3.7-5.3) L 08/01/17 05:55 Globulin 3.5 gm/dL 08/01/17 05:55 Albumin/Globulin Ratio 0.8 (1.0-1.8) L 08/01/17 05:55 Vitamin B12 >1999 pg/mL (232-1245) H 07/30/17 04:30 Folic Acid >20.0 ng/mL (>3.0) 07/30/17 04:30 TSH 2.30 uIU/ml (0.34-5.60) 07/19/17 04:15 Urine Source [place] 07/18/17 21:30 Urine Color RED 07/18/17 21:30 Urine Clarity CLOUDY (CLEAR) H 07/18/17 21:30 Urine pH 7.5 (4.6 - 8.0) 07/18/17 21:30 Ur Specific [place] 1.025 (1.005-1.030) 07/18/17 21:30 Urine Protein >=300 mg/dL (NEGATIVE) 07/18/17 21:30 Urine Glucose (UA) NEGATIVE mg/dL (NEGATIVE) 07/18/17 21:30 Urine Ketones NEGATIVE mg/dL (NEGATIVE) 07/18/17 21:30 Urine Blood LARGE (NEGATIVE) H 07/18/17 21:30 Urine Nitrate NEGATIVE (NEGATIVE) 07/18/17 21:30 Urine Bilirubin NEGATIVE (NEGATIVE) 07/18/17 21:30 Urine Urobilinogen 0.2 E.U./dL (0.2 - 1.0) 07/18/17 21:30 Ur Leukocyte Esterase SMALL (NEGATIVE) H 07/18/17 21:30 Urine RBC 50-100 /hpf (0-5) H 07/18/17 21:30 Urine WBC 6-10 /hpf (0-5) H 07/18/17 21:30 Ur Epithelial Cells FEW /lpf (FEW) 07/18/17 21:30 Urine Bacteria MANY /hpf (NONE SEEN) 07/18/17 21:30 Ur Random Sodium 28 mmol/L 07/19/17 22:30 Urine Creatinine 26.3 mg/dl (Not Estab.) 07/19/17 22:30 Urine Microalbumin 2398.5 ug/mL (Not Estab.) 07/19/17 22:30 Microalb/Creat Ratio 9119.8 07/19/17 22:30 Stool Occult Blood NEGATIVE (NEGATIVE) 07/24/17 03:37 Vancomycin Trough 15.1 ug/mL (10-20) 08/09/17 20:13 Random Vancomycin 17.6 ug/mL (5.0-40.0) 08/07/17 04:40 Blood Type O NEGATIVE 08/09/17 07:55 Antibody Screen NEGATIVE 08/09/17 07:55 Crossmatch See Detail 08/09/17 07:55 - Physical Exam Vitals and I&O: Vital Signs Temp 98.4 F 08/12/17 08:00 Pulse 61 08/12/17 13:35 Resp 14 08/12/17 11:00 BP 162/54 08/12/17 11:00 Pulse Ox 100 08/12/17 13:35 Intake & Output 08/11/17 08/12/17 08/12/17 18:59 06:59 18:59 Intake Total 1250 100 Output Total 1750 1050 Balance -500 -950 Weight (lbs) 197 lb 197 lb Intake: Intake, IV Amount 350 100 Meropenem 1 gm In 100 100 Dextrose 5% 100 ml @ 100 mls/hr IV Q12H ISABELLE Rx#: [id number] Vancomycin HCl 750 mg In 250 Sodium Chloride 0.9% 250 ml @ 167 mls/hr IV Q48H ISABELLE Rx#:[id number] Tube Feeding 900 Output: Urine 1700 1000 Stool 50 50 Other: Stool Characteristics Liquid Liquid Soft Brown Brown Liquid Brown Active Medications: Current Medications Acetaminophen (Tylenol 650mg/20.3ml Suspension) 650 mg GT Q4H PRN PRN Reason: Pain or Fever >101 Stop: 09/16/17 23:47 Last Admin: 07/22/17 00:35 Dose: 650 mg Albuterol/Ipratropium (Duoneb Neb) 3 ml HHN Q6HRT ISABELLE Stop: 09/17/17 12:59 Last Admin: 08/12/17 13:34 Dose: 3 ml Albuterol/Ipratropium (Duoneb Neb) 3 ml HHN Q2HR PRN PRN Reason: Shortness of Breath Stop: 09/16/17 23:47 Ascorbic Acid (Vitamin C) 500 mg GT DAILY ISABELLE Stop: 09/17/17 08:59 Last Admin: 08/12/17 08:30 Dose: 500 mg Bisacodyl (Dulcolax 10 Mg Supp) 10 mg RC DAILY PRN PRN Reason: constip Stop: 09/16/17 23:47 Calamine/Phenol (Calmoseptine) 1 appl TP QID PRN PRN Reason: Skin Irritation Stop: 09/24/17 09:35 Calamine/Phenol (Calmoseptine) 1 appl TP QID ISABELLE Stop: 09/24/17 12:59 Last Admin: 08/12/17 12:39 Dose: 1 appl Carvedilol (Coreg) 6.25 mg GT BID ISABELLE Stop: 09/17/17 08:59 Last Admin: 08/12/17 08:30 Dose: 6.25 mg [place] Oil/[place] Balsam/Trypsin (Venelex) 1 appl TP DAILY ISABELLE Stop: 09/25/17 08:59 Last Admin: 08/12/17 08:30 Dose: 1 appl Chlorhexidine Gluconate (Peridex) 15 ml MM 0800,1999 [facility] Stop: 09/17/17 07:59 Last Admin: 08/12/17 08:30 Dose: 15 ml Docusate Sodium (Colace) 100 mg GT BID PRN PRN Reason: Constipation Famotidine (Pepcid) 20 mg GT Q12H [facility] Stop: 09/16/17 23:44 Last Admin: 08/12/17 12:38 Dose: 20 mg Guaifenesin (Robitussin) 200 mg PO Q4HR PRN PRN Reason: Cough or Congestion Stop: 09/16/17 23:54 Meropenem 1 gm/ Dextrose 100 mls @ 100 mls/hr IV Q12H ISABELLE Stop: 09/30/17 14:59 Last Infusion: 08/12/17 03:25 Dose: Infused Vancomycin HCl 750 mg/ Sodium (Chloride) 250 mls @ 167 mls/hr IV Q48H [facility] Stop: 10/10/17 08:59 Last Infusion: 08/11/17 10:19 Dose: Infused Sodium Chloride (Nacl 0.9%) 1,000 mls @ 30 mls/hr IV .Q24H [facility] Stop: 10/11/17 12:51 Insulin Aspart (Novolog) 0 units SUBQ Q6HR ISABELLE PRN Reason: Protocol Stop: 09/18/17 17:59 Last Admin: 08/12/17 12:37 Dose: Not Given Insulin Detemir (Levemir Insulin) 24 units SUBQ BID ISABELLE PRN Reason: Protocol Stop: 09/20/17 08:59 Last Admin: 08/12/17 08:31 Dose: 24 units Lactobacillus Rhamnosus (Culturelle 15b) 1 each PO DAILY [facility] Stop: 09/30/17 10:59 Last Admin: 08/12/17 08:30 Dose: 1 each Magnesium Hydroxide (Milk Of Magnesia) 30 ml GT HS PRN PRN Reason: Constipation Stop: 09/16/17 23:47 Metoclopramide HCl (Reglan) 10 mg GT Q8H [facility] Stop: 09/20/17 13:01 Last Admin: 08/12/17 12:38 Dose: 10 mg Miscellaneous (Vancomycin Iv Per Pharmacy) 1 ea MC PRN [facility] Stop: 09/16/17 23:44 Miscellaneous (Clinical Monitoring) 1 ea MC PRN PRN PRN Reason: RENAL DOSE MERREM Stop: 09/17/17 08:23 Miscellaneous (Probiotic Screen) 1 ea MC PRN PRN PRN Reason: PROTOCOL Stop: 09/17/17 10:14 Miscellaneous (Vte Chemical Prophylaxis Screen/ Admission) 1 ea MC PRN PRN PRN Reason: PROTOCOL Stop: 09/17/17 13:47 Morphine Sulfate (Morphine) 2 mg IVP Q4H PRN PRN Reason: Pain (Severe) Stop: 09/16/17 23:53 Last Admin: 08/06/17 21:13 Dose: 2 mg Ondansetron HCl (Zofran) 4 mg IV Q8H PRN PRN Reason: Nausea / Vomiting Stop: 09/16/17 23:54 Last Admin: 07/21/17 18:48 Dose: 4 mg Sodium Phosphate (Fleet Enema) 135 ml RC Q48H PRN PRN Reason: Constipation Stop: 09/16/17 23:47 Zinc Sulfate (Zinc Sulfate) 220 mg GT DAILY ISABELLE Stop: 09/17/17 08:59 Last Admin: 08/12/17 08:30 Dose: 220 mg General: weak, congested, demented, obtunded HEENT: NC/AT, PERRLA Neck: Supple, + trach Lungs: congested, rales, ronchi Cardiovascular: RRR, without murmur Abdomen: soft, non-tender, non-distended, +GT, positive bowel sound Extremities: excoriation, ulcers stage 3 Neurological: bedbound, spastic - Procedures Procedures: Procedures Procedure Code Date RESPIRATORY VENTILATION, GREATER THAN 96 CONSECUTIVE HOURS [id number] 07/18/17 Internal Medicine Assmt/Plan - Assessment Assessment: sepsis cdiff chronic respiratory failure VDRF leukocytosis hematuria-improved htn dm2 cad chf anemia tracheostomy status hypokalemia acute renal insufficiency elevated troponin mild protein calorie malnutrition acute uti - Plan Plan: contact isolation continue with ivabx renal follow up monitor h/h follow up labs in am vent support continue current plan of care Nutritional Asmnt/Malnutr-PDOC - Dietary Evaluation Malnutrition Findings (Please click <Entered> for more info): Nutritional Asmnt/Malnutrition Start: 07/19/17 17: 24 Text: Status: Complete Freq: Document 07/19/17 17:25 [facility] (Rec: 07/19/17 17:43 [email or web address] Nutritional Asmnt/Malnutrition Patient General Information Nutritional Screening High Risk Consult Diagnosis Sepsis, UTI Pertinent Medical Hx/Surgical Hx HTN, DM, CAD, CHF, chronic resperatory failure, anemia, PEG/Gtube, tracheostomy Subjective Information Consult received for elevated BG. Pt seen lying in bed, on vent, non verbal comminication noted. Not able to obtain nutrition hx. Spoke with RN, no nutrition plan at this time . Current Diet Order/ Nutrition Support NPO Pertinent Medications Vitamin C, novolog, cultrelle, reglan, vancomycin, , piperacillin, Nacl 0.9%, Zinc Pertinent Labs 07/19 Na 132, K 5.3, Cl 97L, BUN 137, Cr 2.7, Glu 353, POC 324-394, A1C 6.2 Nutritional Hx/Data Height 5 ft 2 in Height (Calculated Centimeters) 157.5 Current Weight (lbs) 178 lb 3.2 oz Weight (Calculated Kilograms) 80.8 Weight (Calculated Grams) 38842.2 [place] Body Weight 110 % [place] Body Weight 162 Body Mass Index (BMI) 32.5 Weight Status Obese GI Symptoms GI Symptoms None Last BM none Usual diet at home Glucerna 1.5 60ml/hr x 20hr daily at [facility] Skin Integrity/Comment: decubitus ulceration to sacrum Estimated Nutritional Goals BEE in Kcals: Adj wt of IBW Calories/Kcals/Kg 30-35 Kcals Calculated Protein: Adj wt of IBW Protein g/k.2-1.5 Protein Calculated Fluid: ml Nutritional Problem 2. Problem Problem increased nutrition needs ( calorie and protein) Etiology increased metabolic demand for healing Signs/Symptoms: sepsis 1. Problem Problem altered nutrition related lab values Etiology hx of DM, acute renal insufficiency Signs/Symptoms: BUN 137, Cr 2.7, Glu 353, POC 324-394, A1C 6.2 Malnutrition Alert Protein-Calorie Malnutrition N/A Is there a minimum of two criteria No selected? Query Text:Check all the applicable criteria. A minimum of two criteria are recommended for diagnosis of either severe or non-severe malnutrition. Intervention/Recommendation Comments 1. Monitor NPO status. 2. If enteral feeding needed, recommend to start Diabetisource AC at 30ml/hr continuous. Increased to goal rate of 60ml/hr continuous as tolerated. This will provide 1728kcal, 86g protein and 1179ml water, meeting 100% of nutritional needs. 3. Monitor wt, labs and skin integrity 4. F/U as high risk in 2-3 days, 07/21-07/22 Expected Outcomes/Goals Expected Outcomes/Goals 1. Pt to meet at least 75% of nutritional needs in 2-3 days 2. Wt stability, skin to remain intact, labs to improve .
--- NOTE | 2017-08-13 01:06 | Progress Notes ---
DATE: 08/12/2017 SUBJECTIVE: The patient in ICU. The patient will open eyes a little bit. Tracheostomy. The patient on the vent. Just stimulate some grimace. No seizures. OBJECTIVE: VITAL SIGNS: Temperature 97.6, blood pressure 138/58, pulse is around 66. NECK: Supple. NEUROLOGIC: The patient alert. Eyes closed to stimulation, some eye opening. The patient has some grimace. She will extend her arms. INVESTIGATION: CT scan of the head: Severe generalized atrophy, chronic. No acute process. EEG: Diffuse encephalopathy. No seizures. ASSESSMENT: 1. Encephalopathy. 2. Respiratory failure. 3. Sepsis. 4. Positive Clostridium difficile. 5. Hematuria. 6. Diabetes. 7. Hypertension. PLAN: Continue present treatment. JOB# [id number]
== END 2017-08-12 18:32 | disposition home or self-care (01) | DRG 853 ==
LOC: ER 21:19 → ICU 23:55
PROVIDERS: ADMIT Internal Medicine; ATTEND Internal Medicine
PROC: 5A1955Z Respiratory Ventilation, Greater than 96 Consecutive Hours (ICD-10-PCS; principal; 2017-07-18)
PROC: 0JB70ZZ Excision of Back Subcutaneous Tissue and Fascia, Open Approach (ICD-10-PCS; 2017-07-28)
PROC: 0XH633Z Insertion of Infusion Device into Right Upper Extremity, Percutaneous Approach (ICD-10-PCS; 2017-07-31)
PROC: 30233N1 Transfusion of Nonautologous Red Blood Cells into Peripheral Vein, Percutaneous Approach (ICD-10-PCS; 2017-08-09)
DX: A41.9 Sepsis, unspecified organism (principal); R65.21 Severe sepsis with septic shock; Z99.11 Dependence on respirator [ventilator] status; G93.41 Metabolic encephalopathy; J96.10 Chronic respiratory failure, unspecified whether with hypoxia or hypercapnia; G35 Multiple sclerosis; A04.72 Enterocolitis due to Clostridium difficile, not specified as recurrent; L89.152 Pressure ulcer of sacral region, stage 2; L89.153 Pressure ulcer of sacral region, stage 3; N17.9 Acute kidney failure, unspecified; E44.1 Mild protein-calorie malnutrition; N39.0 Urinary tract infection, site not specified; E87.0 Hyperosmolality and hypernatremia; I13.0 Hypertensive heart and chronic kidney disease with heart failure and stage 1 through stage 4 chronic kidney disease, or unspecified chronic kidney disease; N13.30 Unspecified hydronephrosis; J98.11 Atelectasis; E11.22 Type 2 diabetes mellitus with diabetic chronic kidney disease; Z93.0 Tracheostomy status; D64.9 Anemia, unspecified; I50.9 Heart failure, unspecified; E87.6 Hypokalemia; I25.10 Atherosclerotic heart disease of native coronary artery without angina pectoris; N18.9 Chronic kidney disease, unspecified; R31.9 Hematuria, unspecified; D63.8 Anemia in other chronic diseases classified elsewhere; G30.9 Alzheimer's disease, unspecified; F02.80 Dementia in other diseases classified elsewhere, unspecified severity, without behavioral disturbance, psychotic disturbance, mood disturbance, and anxiety; J44.9 Chronic obstructive pulmonary disease, unspecified; E87.5 Hyperkalemia; Z68.37 Body mass index [BMI] 37.0-37.9, adult; R31.0 Gross hematuria; Z74.01 Bed confinement status; N31.9 Neuromuscular dysfunction of bladder, unspecified; Z86.73 Personal history of transient ischemic attack (TIA), and cerebral infarction without residual deficits; B95.62 Methicillin resistant Staphylococcus aureus infection as the cause of diseases classified elsewhere; Z89.422 Acquired absence of other left toe(s); Z93.1 Gastrostomy status
CPT/HCPCS: 36415-UA; 36600-90; 70450-TC; 71010-TC; 76770-TC; 80048-TC; 80053-TC; 80202-TC; 81001-TC; 81015-TC; 82043-90; 82140-TC; 82270-TC; 82550-TC; 82570-TC; 82607-90; 82746-90; 82803-TC; 82947-TC; 82948-90; 83036-90; 83540-90; 83550-90; 83605; 83735-TC; 83880-TC; 83930-90; 84100-TC; 84300-TC; 84443-TC; 84484-TC; 84550-TC; 85007-TC; 85025-TC; 85027-TC; 85610-TC; 86850-TC; 86900-TC; 86901-TC; 86922-TC; 87070; 87070-90; 87086-90; 87230-TC; 90779; 93005; 94002; 94003; 94760; 95816-TC; 99201; A4217; J1644; J1815; J1956; J2001; J2185; J2270; J2405; J2543; J3370; J3475; J3480; J7030; J7040; J7070; J7613; J7799; P9016; Z7610